=== PATIENT | male | born 1945 | race Caucasian/White ===

== ENCOUNTER 2018-06-06 00:27 | Outpatient (CLI) | payer MEDICARE, BC, SELFPAY ==
--- NOTE | 2018-06-06 08:16 | DI.US_ITS ---
SYMPTOM/DIAGNOSIS: ALCOHOLIC CIRRHOSIS K70.30, SCREENING FOR HEMATOMA ABDOMEN ULTRASOUND: Comparison is made with CT dated 12/09/17 and an MRI dated 12/23/17. The liver is enlarged and shows geographic fatty infiltration. There is some scalloping of the liver border. No focal mass is identified. The proximal common bile duct measures 13 mm. and tapers distally, not significantly changed from the previous CT. No gallstones or wall thickening is seen. The kidneys, spleen and aorta are unremarkable. The pancreas was shadowed by bowel gas. IMPRESSION: Geographic fatty infiltration of the liver. No evidence of a hepatic mass.
== END 2018-06-06 00:47 ==
PROVIDERS: PCP Nurse Practitioner Family; Visit Provider Internal Medicine Gastroenterology
DX: K70.30 Alcoholic cirrhosis of liver without ascites (principal); K70.0 Alcoholic fatty liver
CPT/HCPCS: 76700

== ENCOUNTER → 2018-06-15 08:30 | Outpatient (BNVA) | payer MEDICARE, BC, SELFPAY | PROVIDERS: PCP Nurse Practitioner Family; Referring Provider Nurse Practitioner Family; Visit Provider Surgery | DX: K70.30 Alcoholic cirrhosis of liver without ascites (principal) | CPT/HCPCS: 99213 ==

== ENCOUNTER 2018-06-22 06:59 | Day surgery (SDC) | payer MEDICARE, BC, SELFPAY ==
[2018-06-22 07:19] VITALS: BP 146/76; PULSE 91; RESP 18; TEMP 35.3; O2SAT 98
[2018-06-22] MEDS: Lactated Ringers 1,000 ML 30 ML IV (07:51)
--- NOTE | 2018-06-22 08:33 | W.PM.DSUDISC ---
Discharge Plan Disposition Patient Disposition: HOME Condition: Good Discharge Details Reason For Visit: CIRRHOSIS Attending Provider: Yeison Cheney Primary Care Provider: Stephie Jones Home Meds and New Rx's Prescriptions: Continue atorvastatin 40 MG tablet 40 mg PO DAILY Qty: 90 RF: 3 lisinopril 20 MG tablet 20 mg PO DAILY Qty: 90 RF: 3 furosemide [Lasix] 20 MG tablet 20 mg PO DAILY Qty: 30 RF: 3 psyllium husk [Metamucil] 660 GM powder 1 - 2 tbs PO DAILY RF: 0 hepatitis A and B vaccine (PF) [Twinrix (PF)] 1 ML syringe 1 ml IM ONCE Qty: 1 RF: 0 Varicella-Zoster Ge/As01b/Pf [Shingrix Vial Kit] 50 MCG INJ 50 mcg IM ONCE Qty: 1 RF: 1 Discharge Instructions Instructions: Upper Endoscopy (DC), Esophageal Varices (DC), Esophageal Varices (GEN) Stand Alone Forms: DSU Post EGD Instructions, Nigel Chaney (DSU) Activity:: Activity as Tolerated Diet:: As Tolerated Discharge Orders Discharge Orders: Discharge Order (Routine); Ordered 06/22/18 Ordered By: Yeison Cheney Discharge Data Discharge Date/Time-TO BE ENTERED AT DEPARTURE: 06/22/18 09:24 Discharge Comment: DC'D HOME WITH FRIEND. STABLE. DS: Diagnosis Discharge Diagnosis (1) Hepatic cirrhosis: Status: Acute Asessment and Plan: EGD performed
--- NOTE | 2018-06-22 08:35 | ROE_ITS ---
Date of service: 06/22/18 Time of Service: 08:34 Operative Note DATE OF PROCEDURE: 06/22/18 PRE-OP DIAGNOSIS: Alcoholic cirrhosis the liver POST-OP DIAGNOSIS: other (Alcoholic cirrhosis of the liver with portal hypertension) PROCEDURE: Esophagogastroduodenoscopy SURGEON: Yeison Cheney ANESTHESIA: GETA and MAC (Tl Cerna CRNA; ASA 3 Mallampati class II) ESTIMATED BLOOD LOSS: 0 PATHOLOGY: none sent COMPLICATIONS: None Patient was transported to: same day Patient's condition: stable Indications: 72-year-old gentleman recently diagnosed with cirrhosis of the liver due to alcohol use. EGD was recommended to assess for upper GI pathology associated associated with cirrhosis of the liver such as esophageal varices or gastric varices. Findings: In examining the upper gastrointestinal tract from the oropharynx to the third portion of the duodenum, the patient was noted to have inflammation in the first and second portions of the duodenum with some small ulcerations present. No gross pathology was noted in the stomach other than dark coagulated strands of clotted blood that can of coated the surface of the stomach. I do not see any mann ulcerations in the stomach nor did I see any significant gastric varices. In the esophagus he was noted to have grade 1 esophageal varices that did appear to have some stigmata of recent bleeding, though there is no active bleeding currently. Procedure Description: The patient was brought to the procedure room. Monitoring for telemetry, end- tidal CO2, O2 saturation, blood pressure were applied. An appropriate timeout was taken reviewing the patient's identification, allergies, medications,and procedure. A bite was placed, and sedation was titrated for effect by the FIELD SERVICES ANALYST. An Olympus variable stiffness endoscope was advanced from the oropharynx to the third portion of the duodenum without difficulty. The scope was then withdrawn in circumferential manner from the duodenum back to the oropharynx. In performing withdrawal of the scope, the duodenum appeared to have gross inflammation in the first and second portions with some small ulcerations present in the first portion of the duodenum, no active bleeding was identified. The scope was withdrawn into the gastric antrum and retroflexed to examine the entire stomach. Stomach was noted to have a fine coating of coagulated dark blood no active bleeding source was identified there were no evidence of gastric varices that that I could note, nor any ulcerations visualized in the stomach as a whole. The scope was then withdrawn to the GE junction which I measured at 35 cm The Z line was at 35 cm and appeared regular. Mr. Cr had grade 1 esophageal varices which appear to have some recent stigmata of bleeding and could have been the source for the blood seen in the stomach. I saw no active bleeding present. I withdrew the scope through the remainder of the esophagus all which appear grossly normal. Scope was then withdrawn terminating the upper endoscopy.
[2018-06-22 09:05] VITALS: BP 152/84; PULSE 81; RESP 18; TEMP 36.6; O2SAT 95
== END 2018-06-22 09:24 | disposition home or self-care (01) ==
PROVIDERS: PCP Nurse Practitioner Family; Visit Provider Surgery
PROC: 0DJ68ZZ Inspection of Stomach, Via Natural or Artificial Opening Endoscopic (ICD-10-PCS; CPT 43235; principal; 2018-06-22 08:30)
DX: K70.30 Alcoholic cirrhosis of liver without ascites (principal); I85.11 Secondary esophageal varices with bleeding; K26.9 Duodenal ulcer, unspecified as acute or chronic, without hemorrhage or perforation; F10.10 Alcohol abuse, uncomplicated; F17.210 Nicotine dependence, cigarettes, uncomplicated; K21.9 Gastro-esophageal reflux disease without esophagitis; I10 Essential (primary) hypertension
CPT/HCPCS: 43235

== ENCOUNTER 2018-07-14 09:40 | Outpatient (REF) | payer MEDICARE, BC, SELFPAY ==
[2018-07-19 12:00] LABS: Helicobacter pylori Ag, Feces Negative (NEGAT)
== END 2018-07-14 10:00 ==
LOC: LBN 09:40
PROVIDERS: PCP Nurse Practitioner Family; Visit Provider Nurse Practitioner Adult Health
DX: R10.9 Unspecified abdominal pain (principal)
CPT/HCPCS: 87338

== ENCOUNTER 2018-08-04 07:40 | Outpatient (CLI) | payer MEDICARE, BC, SELFPAY ==
--- NOTE | 2018-08-04 09:20 | DI.RAD_ITS ---
SYMPTOMS/DIAGNOSIS: SUSPECT SPRAIN, ? FX, PAIN LOCATED DORSAL SURFACE OF FOOT, LT FOOT PAIN, LEFT ANKLE PAIN AND SWELLING, M25.572, LEFT ANKLE EFFUSION, M25.472 LEFT FOOT: No trauma history is provided. There are mild degenerative changes involving the foot. A small corticated region of calcification and cortical irregularity is noted involving the superior anterior portion of the talus and is consistent with old trauma. There is a tiny calcaneal spur. SUMMARY: No acute abnormality is demonstrated involving the left foot. LEFT ANKLE: There is generalized soft tissue swelling and no evidence of an acute fracture or dislocation.
== END 2018-08-04 08:00 ==
PROVIDERS: PCP Nurse Practitioner Family; Visit Provider Nurse Practitioner Family
DX: M25.572 Pain in left ankle and joints of left foot (principal); M79.672 Pain in left foot; M77.32 Calcaneal spur, left foot; M79.89 Other specified soft tissue disorders; M19.072 Primary osteoarthritis, left ankle and foot
CPT/HCPCS: 73610; 73630

== ENCOUNTER 2018-11-30 07:22 | Outpatient (CLI) | payer MEDICARE, BC, SELFPAY ==
--- NOTE | 2018-11-30 07:25 | DI.US_ITS ---
SYMPTOM/DIAGNOSIS: ALCOHOLIC CIRRHOSIS, SCREEN FOR HEPATOMA AND ASCITES ABDOMEN ULTRASOUND: The aorta is obscured by bowel gas. The vena cava is intact. The liver is enlarged at 18 cm. and increased echogenicity would be consistent with fatty infiltration. There is scalloping of the borders of the liver. Normal portal flow is demonstrated. There is no wall thickening, stones or pericholecystic fluid noted. The common bile duct is dilated at 12.8 mm. The pancreas is obscured by bowel gas. The spleen measures 7.7 cm. in length. The right kidney measures 10.5 and the left, 10.2 cm. There is no evidence of hydronephrosis, a cyst or mass. SUMMARY: Findings consistent with fatty infiltration and an enlarged liver with scallop borders consistent with cirrhosis. There is no evidence of cholelithiasis. The common duct is dilated at 12.8 mm. No common duct stone is apparent.
[2018-11-30 08:53] LABS: Abs Immature Grans 0.03 k/cumm (0.0-0.09); Absolute Basophil Count 0.03 k/cumm (0.0-0.2); Absolute Eosinophil Count 0.13 k/cumm (0.0-0.7); Absolute Lymphocyte Count 1.42 k/cumm (1.2-3.4); Absolute Monocyte Count 0.62 k/cumm (0.11-0.7); Absolute Neutrophil Count 4.11 k/cumm (1.2-6.7); Basophils % 0.5; Eosinophils % 2.1; HCT 40.3 % (40.0-50.0); HGB 13.6 g/dL (13.5-17.5); Immature Grans % 0.5; Lymphocytes % 22.4; Mean Corp. HGB Concentration 33.7 g/dL (32.0-36.0); Mean Corpuscular Hemoglobin 32.7 pg (27.0-33.0); Mean Corpuscular Volume 96.9 fL (80-95); Monocytes % 9.8; Neutrophils % 64.7; Platelet Count 220 x1000/uL (130-400); RBC 4.16 m/cumm (4.50-6.00); RBC Distribution Width 14.6 % (11.8-14.1); White Blood Cell Count 6.34 k/cumm (4.4-10.8)
[2018-11-30 09:01] LABS: INR 1.1 (0.9-1.1); Prothrombin Time 11.5 sec (9.3-11.0)
[2018-11-30 09:39] LABS: ALT 100 U/L (12-78); AST 111 U/L (15-37); Albumin 3.5 g/dL (3.4-5.0); Alkaline Phosphatase 127 U/L (46-116); Anion Gap 6.9 mmol/L (3-11); BUN 9 mg/dL (7-18); Bilirubin, Total 0.7 mg/dL (0.2-1.0); CO2 31.1 mmol/L (21.0-32.0); CREATININE 0.76 mg/dL (0.70-1.30); Calcium 8.5 mg/dL (8.5-10.1); Chloride 97 mmol/L (98-107); Glucose 98 mg/dL (70-100); Potassium 3.9 mmol/L (3.5-5.1); Sodium 135 mmol/L (136-145); Total Protein 7.2 g/dL (6.4-8.2)
[2018-11-30 10:12] LABS: Cholesterol 126 mg/dL (50-200); HDL Cholesterol 62 mg/dL (40-60); LDL CHOLESTEROL 44 mg/dL (<100); Triglyceride 190 mg/dL (30-150)
== END 2018-11-30 07:42 ==
PROVIDERS: PCP Nurse Practitioner Family; Referring Provider Physician Assistant Medical; Visit Provider Internal Medicine Gastroenterology
DX: E78.5 Hyperlipidemia, unspecified (principal); K70.30 Alcoholic cirrhosis of liver without ascites; K76.0 Fatty (change of) liver, not elsewhere classified; R16.0 Hepatomegaly, not elsewhere classified
CPT/HCPCS: 36415; 80053; 80061; 83721; 76700; 85025; 85610

== ENCOUNTER 2019-05-29 15:12 | Emergency (ER) | payer MEDICARE, BC, SELFPAY ==
[2019-05-29 15:20] VITALS: BP 161/74; PULSE 76; RESP 16; TEMP 37; O2SAT 100
--- NOTE | 2019-05-29 15:31 | ED.GENADUL_ITS ---
Discharge Plan Disposition Patient Disposition: OTHER Condition: Stable Discharge Details Chief Complaint: GenMedical Clinical Impression: Left before treatment completed, Dysphagia Primary Care Provider: Stephie Jones ED Provider: Corine Dill Home Meds and New Rx's Prescriptions: No Action lisinopril 20 mg tablet 20 mg PO DAILY Qty: 90 RF: 3 carvedilol 6.25 mg tablet 6.25 mg PO BID Qty: 180 RF: 3 Metamucil 660 GM powder 1 - 2 tbs PO DAILY RF: 0 atorvastatin 40 mg tablet 40 mg PO DAILY Qty: 90 RF: 3 furosemide [Lasix] 20 mg tablet 20 mg PO QAM Qty: 90 RF: 3 Medical Decision Making 1530 -- 73-year-old male with a history of GERD, Smalls's esophagus, prostate cancer, hypertension, hyperlipidemia, heavy alcohol abuse, cirrhosis, heavy tobacco use presents with difficulty swallowing large pills for the past 2 weeks. He denies any fever, pain, vomiting. He is speaking in full sentences. Airway intact. Normal oropharynx. No drooling, trismus, submandibular swelling. Diminished breath sounds throughout but he has a history of COPD and denies any acute worsening of his chronic shortness of breath. Patient had a EGD from 06/2018 which noted grade 1 esophageal varices without active bleeding. Discussed with patient that differential diagnosis can include esophageal mass, narrowing, infection, inflammation, GERD, complications associated with his Smalls's esophagus. Further work-up for this in the emergency department would include IV, screening labs, CT neck as well as chest x-ray considering his heavy alcohol and tobacco use. He has no evidence of superior vena cava syndro me. Patient is agreeable with plan. 1625 --nurse stated that patient left before an IV was placed. There was a misunderstanding between nurses and it was thought that his IV was done. Patient states he felt better and did not want to stay for any treatment. HPI General Mode of arrival: ambulatory . Date/Time Provider Initiated Documentation: 05/29/19 15:14 . Limitations to Documentation: no limitations . Information obtained by: patient . HPI Narrative: Patient is a 73-year-old male with a history of COPD, GERD, hypertension, hyperlipidemia, restless leg syndrome, Smalls's esophagus, chronic daily alcohol use, cirrhosis, and heavy tobacco smoker who presents for difficulty swallowing large pills for the past 2 weeks. He states he is able to swallow all rest of his small smooth pills easily. He states the pill he is having difficulty with is his Lipitor which she cut in half and then down to quarters and still had difficulty due to the rough edges. He does feel that there is possibly a remnant of pill embedded in his throat. He denies any fever, sore throat, neck pain, chest pain, shortness of breath worse than usual, abdominal pain, vomiting, hemoptysis, hematemesis. Related Data Home Medications Medication Instructions Recorded Confirmed Metamucil 1 - 2 tbs PO DAILY 02/25/18 05/29/19 carvedilol 6.25 mg tablet 6.25 mg PO BID #180 tab-cap 07/18/18 05/29/19 atorvastatin 40 mg tablet 40 mg PO DAILY #90 tab-cap 12/07/18 05/29/19 lisinopril 20 mg tablet 20 mg PO DAILY #90 tab-cap 12/12/18 05/29/19 furosemide 20 mg tablet 20 mg PO QAM #90 tab-cap 04/26/19 05/29/19 Previous Rx's Medication Instructions Recorded carvedilol 6.25 mg tablet 6.25 mg PO BID #180 tab-cap 07/18/18 atorvastatin 40 mg tablet 40 mg PO DAILY #90 tab-cap 12/07/18 lisinopril 20 mg tablet 20 mg PO DAILY #90 tab-cap 12/12/18 furosemide 20 mg tablet 20 mg PO QAM #90 tab-cap 04/26/19 Allergies Allergy/AdvReac Type Severity Reaction Status Date / Time erythromycin base AdvReac Mild Verified 05/29/19 15:24 [From E-Mycin] General Stated Complaint: GenMedical JAMEE: 3 Review of Systems Review of Systems ROS Unobtainable: All systems reviewed & are unremarkable except as noted in HPI and below Constitutional Constitutional: Reports as per HPI, Denies chills and Denies fever(s) Eyes Eyes: Denies blurry vision ENT Ears, Nose, Mouth, and Throat: Reports dysphagia (difficulty swallowing large pills), Denies dizziness, Denies sore throat and Denies throat swelling Cardiovascular Cardiovascular: Denies chest pain and Denies dyspnea Respiratory Respiratory: Denies cough and Denies dyspnea Gastrointestinal Gastrointestinal: Denies abdominal pain, Reports dysphagia (difficulty swallowing large pills), Denies diarrhea and Denies vomiting Genitourinary Genitourinary: Denies hematuria and Denies dysuria Musculoskeletal Musculoskeletal: Denies back pain and Denies numbness Integumentary/Breasts Skin/Breast: Denies lesions and Denies rash Neurologic Neurologic: Denies dizziness, Denies focal weakness and Denies numbness Allergic/Immunologic Allergic/Immunologic: Denies throat swelling [facility] Medical History 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 Geoffrey Dumont Alcohol use disorder (Chronic) Smalls's esophagus (Chronic) 10/17/2018 EGD ([facility] [place] esophageal mucosal changes classified as Smalls's stage C0-M1 per [place] criteria (also showed resolution of esophageal varices on carvedilol 6.25 mg BID) Bilateral lower extremity edema (Chronic 01/14/18) Related to cirrhosis BPH w urinary obs/LUTS (Chronic 03/10/13) BPH with obstruction/lower urinary tract symptoms (Chronic) Al hemangioma (Resolved 02/18/17) Dr. Geoffrey Dumont Chronic obstructive lung disease (Chronic 03/15/13) 01/2007 PFT jul diffusion, FEV1 90%: emphysema Esophageal varices (Resolved) 06/22/2017 EGD (Dr. Cheney): grade 1 w/ stigmata of bleeding; 10/17/2018 EGD ([facility] [place]): no evidence of esophageal or gastric varices on carvedilol 6.25 mg BID Gastroesophageal reflux disease (Chronic 03/15/13) HH surgery 08/1990 GERD (gastroesophageal reflux disease) (Chronic) Heavy alcohol use (Chronic) Hepatic cirrhosis (Chronic 01/14/18) [facility] [place] GI 02/24/2018 Fibroscan: stage 4 liver fibrosis, consistent with cirrhosis with possible portal HTN 06/22/2018 EGD (Dr. Cheney): confirmed portal HTN with grade 1 esophageal varices History of basal cell carcinoma (Chronic) Hyperlipidemia (Chronic 03/24/13) 11/2018 labs: good response to high potency statin, continue Hyperlipidemia (Chronic) Hypertension (Chronic 08/01/14) Incisional hernia (Acute) Incisional hernia, without obstruction or gangrene (Chronic 01/17/18) [facility] [place] [facility] consult Incontinence of feces (Chronic) Malignant neoplasm of prostate (Acute) Rectosphincteric dyssynergia (Chronic) Manifested as fecal incontinence and constipation; resolved with daily fiber supplementation Restless leg syndrome (Chronic) Seborrheic keratosis (Inactive 02/18/17) Dr. Hale Derm Sigmoid diverticulosis (Chronic 02/01/18) 02/01/2018 colonoscopy Tobacco use disorder (Chronic) 1.5 PPD Surgical History Colonoscopy - MAC (Resolved 02/01/18) History of esophagogastroduodenoscopy (EGD) (Resolved 06/22/18) dr cheney, grade I esophageal varices Left shoulder (Resolved 09/24/07) Marci Fundoplication (Resolved 03/24/85) Prostatectomy (Resolved ~05/2007) Repair of incision from Marci fundoplication (Resolved 03/24/87) right shoulder (Resolved 03/24/00) Family History Mother , resp failure No problems noted. Father , prostate CA Personal history of malignant neoplasm prostate Malignant melanoma Social History Smoking/Tobacco Use Status: Current every day Tobacco Type: cigarettes Alcohol Intake: current Alcohol Intake frequency: 3 or more drinks per day Alcohol type: beer and hard liquor Drug use: Never Substance use type: does not use Caregiver/Support person: No Number of Children: 2 Communication Needs: None current occupation: Retired Current gender identity: male What type of physical activity do you participate in: none Seatbelt use: always Water heater temp set <120 deg: Yes Working smoke detector in home: Yes Fire extinguisher in home: Yes Carbon monox detector in home: Yes Firearms in home: No Exam Const General: cooperative and no acute distress Orientation: alert, awake and oriented x3 HENMT Head: normal to inspection Ears: hearing grossly normal bilaterally, external ears normal and TM's normal bilaterally General nose exam: external nose normal Face and sinus: normal facial exam Mouth: oral mucosae normal Teeth and gingiva: dentition normal Throat: posterior oropharynx normal Eyes General: appearance normal, both eyes and all related structures Eyelids: eyelids normal Pupils: PERRL EOM: EOM intact bilaterally Neck Neck: normal visual inspection Lymphatic: no lymphadenopathy noted Chest Chest: normal inspection of the chest Resp Effort & Inspection: normal respiratory effort and able to speak in complete sentences Auscultation: clear to auscultation bilaterally Cardio Rate: regular rate Rhythm: regular rhythm GI Inspection: normal to inspection and scar (Midline, no evidence of infection.) Palpation: soft, not firm, no guarding, no hepatosplenomegaly, no masses and nontender Auscultation: normal bowel sounds Skin General skin exam: no rashes or lesions noted Neuro General: alert and awake Cognition: normal cognition Speech: speech normal Gait: normal gait Motor: muscle tone normal throughout Sensory Exam: no sensory deficits noted Extrem General: normal to inspection, full ROM, normal capillary refill and no edema Psych Appearance: grossly normal Mental Status: mental status grossly normal Speech and Movement: speech and movement normal Affect: normal affect Thought Process: normal Course Vital Signs Vital signs: Vital Signs Temperature 98.6 F 05/29/19 15:20 Pulse 76 05/29/19 15:20 Respiratory Rate 16 05/29/19 15:20 Blood Pressure 161/74 H 05/29/19 15:20 Pulse Oximetry 100 05/29/19 15:20 Temperature 98.6 F 05/29/19 15:20 Temperature Source Skin 05/29/19 15:20 Pulse 76 05/29/19 15:20 Respiratory Rate 16 05/29/19 15:20 Respiratory Effort Non-Labored 05/29/19 15:20 Blood Pressure 161/74 H 05/29/19 15:20 Blood Pressure Position Sitting 05/29/19 15:20 Pulse Oximetry 100 05/29/19 15:20 Oxygen Delivery Method Room Air 05/29/19 15:20 Oxygen Flow Rate 0 05/29/19 15:20 Pain Level 0 05/29/19 15:20
--- NOTE | 2019-05-29 16:50 | NUR.NOTE ---
pt left 37 min after his orders where written. he stated that he was feeling better and did not want to wait.Nursing Note:
[2019-05-30 07:01] VITALS: RESP 16
== END 2019-05-29 16:30 | disposition other institution (70) ==
PROVIDERS: Emergency Provider Physician Assistant; PCP Nurse Practitioner Family
DX: R13.10 Dysphagia, unspecified (principal); K22.70 Barrett's esophagus without dysplasia; Z53.29 Procedure and treatment not carried out because of patient's decision for other reasons; I10 Essential (primary) hypertension
CPT/HCPCS: 80053; 99282; 85025

== ENCOUNTER 2019-05-31 01:36 | Outpatient (CLI) | payer MEDICARE, BC, SELFPAY ==
--- NOTE | 2019-05-31 08:00 | DI.US_ITS ---
EXAM: US ABDOMEN CLINICAL HISTORY: ALCOHOLIC CIRRHOSIS, K70.30, ? HEPATOMA OR ASCITES TECHNIQUE: Ultrasound performed using standard protocol. COMPARISON: US ABDOMEN from 11/30/2018 FINDINGS: The liver is again noted to have a coarsened echotexture, increased echogenicity and mild lobulation . No focal liver lesions are seen. The gallbladder is unremarkable. The common bile duct is unchan ged at 12 millimeters. No obstructing stone is seen. The spleen is normal in size. The kidneys are unremarkable. There is a minimal amount fluid around the liver. The aorta is not well seen due to overlying bowel gas. IMPRESSION: Stable appearance of liver. No evidence of liver mass. Trace amount of ascites.
== END 2019-05-31 01:56 ==
PROVIDERS: PCP Nurse Practitioner Family; Visit Provider Internal Medicine Gastroenterology
DX: K70.31 Alcoholic cirrhosis of liver with ascites (principal)
CPT/HCPCS: 76700

== ENCOUNTER 2019-05-31 09:12 | Outpatient (CLI) | payer MEDICARE, BC, SELFPAY ==
[2019-05-31 09:56] LABS: Abs Immature Grans 0.02 k/cumm (0.0-0.09); Absolute Basophil Count 0.05 k/cumm (0.0-0.2); Absolute Eosinophil Count 0.21 k/cumm (0.0-0.7); Absolute Lymphocyte Count 1.64 k/cumm (1.2-3.4); Absolute Monocyte Count 0.58 k/cumm (0.11-0.7); Absolute Neutrophil Count 4.51 k/cumm (1.2-6.7); Basophils % 0.7; HCT 41.5 % (40.0-50.0); HGB 13.9 g/dL (13.5-17.5); Immature Grans % 0.3; Lymphocytes % 23.4; Mean Corp. HGB Concentration 33.5 g/dL (32.0-36.0); Mean Corpuscular Hemoglobin 33.4 pg (27.0-33.0); Mean Corpuscular Volume 99.8 fL (80-95); Mean Platelet Volume 8.7 fL (8.0-11.0); Monocytes % 8.3; Neutrophils % 64.3; Platelet Count 263 x1000/uL (130-400); RBC 4.16 m/cumm (4.50-6.00); RBC Distribution Width 14.4 % (11.8-14.1); White Blood Cell Count 7.01 k/cumm (4.4-10.8)
[2019-05-31 09:59] LABS: INR 1.2 (0.9-1.1); Prothrombin Time 11.7 sec (9.3-11.0)
[2019-05-31 10:49] LABS: ALT 44 U/L (16-63); AST 51 U/L (15-37); Albumin 3.6 g/dL (3.4-5.0); Alkaline Phosphatase 117 U/L (46-116); Anion Gap 7.1 mmol/L (3-11); BUN 10 mg/dL (7-18); Bilirubin, Total 0.6 mg/dL (0.2-1.0); CO2 30.9 mmol/L (21.0-32.0); CREATININE 0.72 mg/dL (0.70-1.30); Calcium 8.9 mg/dL (8.5-10.1); Chloride 100 mmol/L (98-107); Glucose 97 mg/dL (70-100); Potassium 4.3 mmol/L (3.5-5.1); Sodium 138 mmol/L (136-145)
[2019-06-01 12:45] LABS: PSA, Screening <0.1 ng/ml (0-6.5)
[2019-06-02 10:40] LABS: AFP Tumor Marker <2.5 ng/mL (<8.1)
== END 2019-05-31 09:32 ==
PROVIDERS: PCP Nurse Practitioner Family; Visit Provider Physician Assistant Medical
DX: K70.30 Alcoholic cirrhosis of liver without ascites (principal); Z85.46 Personal history of malignant neoplasm of prostate
CPT/HCPCS: 36415; 80053; 84153; 76700; 82105; 85025; 85610

== ENCOUNTER 2019-06-06 12:33 | Outpatient (CLI) | payer MEDICARE, BC, SELFPAY ==
--- NOTE | 2019-06-06 08:53 | DI.RAD_ITS ---
EXAM: RF BARIUM SWALLOW UGI CLINICAL HISTORY: DYSPHAGIA WITH PILLS ONLY, RECENT EGD 10/2018 [facility] [place] TECHNIQUE: The exam was performed according to the usual protocol. COMPARISON: No exams were available for comparison FINDINGS: The advance scout view of the chest shows normal heart size. The lungs are hyperinflated but clear. There is mild apical scarring. Lateral advance scout view of the neck shows facet degenerative changes. The epig lottis appears normal. There is no prevertebral soft tissue swelling. Esophageal peristalsis was mi ldly sluggish. One episode of laryngeal penetration was observed. There is pooling in the vallecular and piriform sinuses. There is a small paraesophageal hernia. The barium tablet stuck briefly at t he GE junction. The stomach and duodenum and visualized small bowel are unremarkable. There is norm al gastric emptying. IMPRESSION: Small paraesophageal hernia. FLUORO TIME: 1 MINUTE, 15 SECONDS
[2019-06-06] MEDS: Simethicone/Sod Bicarb/Cit Ac, 4 gram PACKET 1 PACKET PO (10:02)
[2019-06-06] MEDS: Barium Sulfate 700 MG TAB PO (10:02)
[2019-06-06] MEDS: Barium Sulfate 60% W/V 355 ML BTL PO (10:04)
== END 2019-06-06 12:53 ==
PROVIDERS: PCP Nurse Practitioner Family; Visit Provider Nurse Practitioner Family
DX: R13.10 Dysphagia, unspecified (principal); K44.9 Diaphragmatic hernia without obstruction or gangrene
CPT/HCPCS: 74220; 74247; J3490

== ENCOUNTER 2019-06-22 15:28 | Outpatient (CLI) | payer MEDICARE, BC, SELFPAY ==
--- NOTE | 2019-06-22 11:32 | PFT_ITS ---
PULMONARY FUNCTION TEST REPORT DATE OF SERVICE: June 22, 2019 REQUESTING PROVIDER: Stephie Jones N.P. Spirometry shows severe obstructive airways disease with no significant bronchodilator response. Lung volumes show no evidence of restriction. There is moderate hyperinflation and air trapping. Diffusion capacity moderately reduced, even when corrected to alveolar volume. Airways resistance mildly elevated. IMPRESSION: Severe obstructive airways disease with no significant bronchodilator response. This is associated with moderate hyperinflation and air trapping and moderate diffusion defect. When this study was compared to previous one from 09/08/06, the patient has a total of 1160 cc's decline in FVC. FEV1 has declined by 1600 cc's. BRENDAN/jose D/
[2019-06-22] MEDS: Inhaler, Assist Device 1 EACH MC (16:48)
[2019-06-22] MEDS: Albuterol HFA 18 GM 200 PUFF INH IH (16:49)
== END 2019-06-22 15:48 ==
PROVIDERS: PCP Nurse Practitioner Family; Visit Provider Nurse Practitioner Family
DX: J44.9 Chronic obstructive pulmonary disease, unspecified (principal); R06.00 Dyspnea, unspecified; F17.210 Nicotine dependence, cigarettes, uncomplicated
CPT/HCPCS: 94060; 94150; 94726; 94729

== ENCOUNTER 2020-06-15 01:32 | Inpatient (IN) | payer MEDICARE, BC, SELFPAY ==
[2020-06-15] VITALS (28 sets, daily range): BP systolic 90–149; BP diastolic 50–81; PULSE 65–87; RESP 12–18; TEMP 35.9–37.3; O2SAT 92–98
--- NOTE | 2020-06-15 01:34 | ED.GENADUL_ITS ---
Discharge Plan Disposition Patient Disposition: [facility] INPATIENT Condition: Stable Discharge Details Clinical Impression: Closed fracture of left hip Admit Date/Time: 06/15/20 03:32 Admit Provider: Hamzah Bahena Attending Provider: Hamzah Bahena Primary Care Provider: Stephie Jones ED Provider: Kenny Pitt Discharge Data Discharge Date/Time-TO BE ENTERED AT DEPARTURE: 06/15/20 04:33 Medical Decision Making 74-year-old male with a history of GERD, Smalls's esophagus, prostate cancer, hypertension, hyperlipidemia, heavy alcohol abuse, cirrhosis, heavy tobacco abuse, alcoholic cirrhosis, presents today for evaluation of fall and left hip pain. Patient was at his home where he has been drinking regularly and heavily especially since the coronavirus pandemic began per patient. He states that sometime this evening he must of fallen and hit his left hip. He has not been able to get up, he called 911 when he realized/woke up on the ground. Aside for pain in his left hip scrapes on both of his elbows he denies any pain. He denies any pain in his head, neck, chest, abdomen, or numbness or tingling. He was unable to get up on his own per EMS. He is not on any blood thinners. He has no other complaints at this time. Exam demonstrates a sure and externally rotated left hip, tenderness over the greater trochanter, superficial abrasions over the elbows bilaterally leading to mild skin tears. Not amendable to suturing. Last tetanus shot was just over 7 years old. It may be beneficial to update him at this time. We will get an x-ray to confirm suspected fracture. Get a CT scan of his head as he is a chronic alcoholic and he is unsure if he hit his head. Monitor closely and plan for admission. 3:[address] scan of the head neck and x-ray of the chest is negative for acute process. X-ray of the hips demonstrate acute intertrochanteric fracture of the proximal femur. Patient's laboratory work-up unremarkable aside from mild hyponatremia, he has been given 150ml's normal saline per hour. Remainder the patient's work- up is benign. Discussed the case with the hospitalist Dr. Bahena, he agrees with the assessment and plan, he will admit the patient, we will recheck to orthopedics. I have extensively reviewed the treatment plan with the patient. I have addressed all patient concerns at this time. I have also discussed the plan with the admitting physician and they agree with the current assessment and plan and have agreed to assume responsibility for the patient. All parties demonstrate verbal understanding and agreement with our assessment and plan at this time. 5:30 AM Discussed the case with Dr. Mcclendon, he agrees with the plan. Patient will be admitted. Under the hospitalist. FINDINGS: Bones/joints: Acute intratrochanteric fracture of the proximal femur. Soft tissues: Unremarkable. IMPRESSION: Acute intratrochanteric fracture of the proximal femur. Thank you for allowing us to participate in the care of your patient. Dictated and Authenticated by: Ajith Reyes MD 06/15/2020 2:46 AM Eastern Time ([place] & [place]) FINDINGS: Brain: No acute intracranial hemorrhage. Diffuse cerebral atrophy. Cerebral ventricles: Ventricular prominence in this patient with diffuse cerebral atrophy. Bones/joints: No acute fracture. Paranasal sinuses: Medial right frontal sinus retention cyst. Mastoid air cells: No mastoiditis. Vasculature: Arterial calcification. Soft tissues: Unremarkable. IMPRESSION: 1. No acute fracture. 2. No acute intracranial findings FINDINGS: Bones/joints: No acute fracture. Normal alignment. Discs/Spinal canal/Neural foramina: Mild narrowing of the left neural foramen at C3-C4. Mild narrowing of each neural foramen at C4-C5 and C5-C6. Soft tissues: Unremarkable. Lungs: Biapical scarring with areas of calcification. IMPRESSION: No acute fracture or subluxation. Thank you for allowing us to participate in the care of your patient. Dictated and Authenticated by: Miles Metcalf MD 06/15/2020 2:56 AM Eastern Time ([place] & [place]) FINDINGS: Lungs: No alveolar infiltrate. Biapical scarring. Pleural space: No pleural fluid collection. No pneumothorax. Heart/Mediastinum: Normal heart size. Vasculature: Calcific thoracic aorta. Bones/joints: Spinal degenerative changes. IMPRESSION: 1. No alveolar infiltrate. 2. Biapical scarring. Thank you for allowing us to participate in the care of your patient. Dictated and Authenticated by: Miles Metcalf MD 06/15/2020 3:04 AM Eastern Time ([place] & [place]) HPI General Date/Time Provider Initiated Documentation: 06/15/20 01:32 . HPI Narrative: 74-year-old male with a history of GERD, Smalls's esophagus, prostate cancer, hypertension, hyperlipidemia, heavy alcohol abuse, cirrhosis, heavy tobacco abuse, alcoholic cirrhosis, presents today for evaluation of fall and left hip pain. Patient was at his home where he has been drinking regularly and heavily especially since the coronavirus pandemic began per patient. He states that sometime this evening he must of fallen and hit his left hip. He has not been able to get up, he called 911 when he realized/woke up on the ground. Aside for pain in his left hip scrapes on both of his elbows he denies any pain. He denies any pain in his head, neck, chest, abdomen, or numbness or tingling. He was unable to get up on his own per EMS. He is not on any blood thinners. He has no other complaints at this time. Related Data Home Medications Medication Instructions Recorded Confirmed Metamucil 1 - 2 tbs PO DAILY 02/25/18 06/15/20 carvedilol 6.25 mg tablet 6.25 mg PO BID #180 tab-cap 08/11/19 06/15/20 atorvastatin 40 mg tablet 40 mg PO DAILY #90 tab-cap 11/23/19 06/15/20 lisinopril 20 mg tablet 20 mg PO DAILY #90 tab-cap 01/05/20 06/15/20 hepatitis A and B virus 1 ml IM ONCE #1 ml 03/28/20 04/11/20 vaccine(PF)720 DYLAN unit-20 mcg/mL IM syringe furosemide 20 mg tablet 20 mg PO QAM #90 tab-cap 05/22/20 06/15/20 Previous Rx's Medication Instructions Recorded carvedilol 6.25 mg tablet 6.25 mg PO BID #180 tab-cap 08/11/19 atorvastatin 40 mg tablet 40 mg PO DAILY #90 tab-cap 11/23/19 lisinopril 20 mg tablet 20 mg PO DAILY #90 tab-cap 01/05/20 hepatitis A and B virus 1 ml IM ONCE #1 ml 03/28/20 vaccine(PF)720 DYLAN unit-20 mcg/mL IM syringe furosemide 20 mg tablet 20 mg PO QAM #90 tab-cap 05/22/20 Allergies Allergy/AdvReac Type Severity Reaction Status Date / Time erythromycin base AdvReac Mild Verified 06/15/20 01:42 [From E-Mycin] General JAMEE: 3 Review of Systems All systems reviewed & are unremarkable except as noted in HPI and below PFSH Medical History 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 Geoffrey Dumont Alcohol use disorder Smalls's esophagus 10/17/2018 EGD [place] esophageal mucosal changes classified as Smalls's stage C0-M1 per [place] criteria (also showed resolution of esophageal varices on carvedilol 6.25 mg BID) Basal cell carcinoma (BCC) Face Bilateral lower extremity edema (01/14/18) Related to cirrhosis BPH w urinary obs/LUTS (03/10/13) Al hemangioma (02/18/17) Dr. Geoffrey Dumont Chronic obstructive lung disease (03/15/13) 01/2007 PFTs: FEV1 90%; 06/2019 PFTs: FEV1/FVC 56% --> severe obstructive airways disease with no bronchodilator response Dysphagia 10/17/2018 EGD ([facility]): Smalls's & interval resolution of esophageal varices seen on previous EGD (see Smalls's dx comments for details); 06/06/2019 Barium Swallow: some dysmotility & aspiration --> referred to Speech Therapy 04/12/20 [facility] Esophageal Manometry; 05/17/2020 EGD: Grade I esophageal varices, duodenal erosions w/o bleeding, no obstructive cause for dysphagia Esophageal varices 06/22/2017 EGD (Dr. Cheney): grade 1 w/ stigmata of bleeding; 10/17/2018 EGD ([facility]): no evidence of esophageal or gastric varices on carvedilol 6.25 mg BID Family history of malignant melanoma ov note dated 05/10/20-Dr. Hale Gastroesophageal reflux disease (03/15/13) surgery 08/1990 GERD (gastroesophageal reflux disease) Hepatic cirrhosis (01/14/18) [facility] 02/24/2018 Fibroscan: stage 4 liver fibrosis, consistent with cirrhosis with possible portal HTN 06/22/2018 EGD (Dr. 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 Hale Derm Sigmoid diverticulosis (02/01/18) 02/01/2018 colonoscopy Squamous cell carcinoma Face Tobacco use disorder 1.5 PPD Surgical History Colonoscopy - MAC (02/01/18) H/O colonoscopy 05/17/20 at [facility] - no need for further to have any further colonscopy per report H/O endoscopy 05/17/20 [facility] History of esophagogastroduodenoscopy (EGD) (06/22/18) dr cheney, grade I esophageal varices Left shoulder (09/24/07) Marci Fundoplication (03/24/85) Prostatectomy (~05/2007) Repair of incision from Marci fundoplication (03/24/87) right shoulder (03/24/00) Family History Mother , resp failure No problems noted. Father , prostate CA Personal history of malignant neoplasm prostate Malignant melanoma Social History Smoking/Tobacco Use Status: Current every day Tobacco Type: cigarettes Smoking risk assessment performed?: Yes Alcohol Intake: current Alcohol Intake frequency: 3 or more drinks per day Alcohol type: beer and hard liquor Drug use: Never Substance use type: does not use Caregiver/Support person: No Number of Children: 2 Communication Needs: None current occupation: Retired Current gender identity: male What type of physical activity do you participate in: none Seatbelt use: always Water heater temp set <120 deg: Yes Working smoke detector in home: Yes Fire extinguisher in home: Yes Carbon monox detector in home: Yes Firearms in home: No Do you feel safe at home: Yes Do you feel safe in your relationship?: Yes Exam Narrative Exam Narrative: 1.Const: Well-nourished, Well-developed, appearing stated age 2.Eyes: PERRL, no conjunctival injection, and symmetrical lids. 3.ENT: Atraumatic external nose and ears. Moist MM. Neck: Symmetric, trachea midline, No thyromegaly. There is no evidence of raccoon eyes, zelaya sign, CSF rhinorrhea, mastoid tenderness, cranial crepitus, hemotympanum, exophthalmos, or hyphema. Patient demonstrates intact dentition with no signs of tooth avulsion or fracture, no signs of jaw deformity, no evidence of a LeFort's fracture, with an intact palate, nose and orbital region. There is no evidence of a nasal septal hematoma. No proptosis. Jaw closes symmetrically. Airway is clear. 4.CVS: Regular rate and rhythm, Normal s1 and s2. No murmurs, carotid bruits, rubs, or gallops. Radial pulses 2+ bilaterally and symmetric. Dorsalis pedis pulses 2+ bilaterally and symmetric. 2+ capillary refill. No evidence of distant heart sounds. No extremity edema. No evidence of gross hemorrhage. 5.RESP: Airway clear, no obstructions. No abrasions or ecchymosis. Chest movement symmetric with respirations. No chest wall tenderness. Trachea midline. No crepitus. No step offs. No paradoxical movements. Lungs are clear to auscultation bilaterally. No rales, rhonchi, wheezing or stridor. Breath sound symmetric. No Sucking chest wounds. No clinical evidence of significant chest trauma. 6.GI: Soft, nondistended, nontender. Bowel tones normoactive. No masses or organomegaly. No ecchymosis or abrasions. No periumbilical ecchymosis or seatbelt sign. No flank or CVA tenderness. No clinical signs of significant trauma. He does have a soft reducible herniation in his left lateral abdomen. No clinical evidence of significant abdominal trauma. 7.MSK: No midline cervical thoracic pain. He does demonstrate evidence of a shortened and externally rotated left hip, with mild tenderness over the greater trochanter. He is able to wiggle his toes, dorsalis pedis posterior tibial pulse +2 bilaterally, sensation intact, upper extremities demonstrate scrapes on his lateral elbows bilaterally but no elbow tenderness, or weakness. He is able to move and flex and extend well without any complaints. No other evidence of significant trauma 8.Skin: Small superficial skin tears not amendable to suturing on the elbows bilaterally. 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 Sensation grossly intact, no focal n eurologic deficits. 10.Psych: (AAO) x3. Appropriate mood and affect
[2020-06-15] MEDS: Normal Saline 1,000 ML 150 ML IV ×3 (01:48→09:54)
[2020-06-15 01:57] LABS: Abs Immature Grans 0.07 10^3/uL (0.0-0.06); Absolute Basophil Count 0.05 10^3/uL (0.0-0.2); Absolute Lymphocyte Count 1.58 10^3/uL (1.2-3.4); Absolute Neutrophil Count 6.05 10^3/uL (1.2-6.7); Basophils % 0.6; Eosinophils % 2.3; HGB 12.3 g/dL (13.5-17.5); Immature Grans % 0.8; Lymphocytes % 18.1; MCH 32.9 pg (27.0-33.0); MCHC 33.2 % (32.0-36.0); MCV 98.9 fL (80-95); MPV 8.7 fL (8.0-11.0); Monocytes % 9.1; Neutrophils % 69.1; Nucleated RBC 0 %; Platelet Count 215 10^3/uL (130-400); RBC 3.74 10^6/uL (4.36-5.78); RDW-SD 47.1 fL; WBC 8.75 10^3/uL (4.4-10.8)
[2020-06-15 02:11] LABS: ETHANOL BLOOD 44.7 mg/dL (<3)
[2020-06-15 02:15] LABS: ALT 31 U/L (16-63); AST 47 U/L (15-37); Albumin 3.1 g/dL (3.4-5.0); Alkaline Phosphatase 102 U/L (46-116); Anion Gap 7.4 mmol/L (3-11); BUN 7 mg/dL (7-18); Bilirubin, Total 0.4 mg/dL (0.2-1.0); CO2 27.6 mmol/L (21.0-32.0); CREATININE 0.77 mg/dL (0.70-1.30); Calcium 8.2 mg/dL (8.5-10.1); Chloride 94 mmol/L (98-107); Creatine Kinase 99 U/L (39-308); Glucose 121 mg/dL (74-106); Potassium 4.6 mmol/L (3.5-5.1); Sodium 129 mmol/L (136-145); Total Protein 6.7 g/dL (6.4-8.2)
--- NOTE | 2020-06-15 02:16 | NUR.NOTE ---
Nursing Note:Patient's macdonald 358 dollars, wallet, jackie knife, money clip sealed in envelope and given to [facility] Tr[facility] Operator to put in the safe. Receipt to claim envelope sealed in a plasticbag with patient label attached put in patient's pants pocket.
--- NOTE | 2020-06-15 02:26 | DI.RAD_ITS ---
EXAM: XR HIP LT COMPLETE AP PELVIS CLINICAL HISTORY: expect fracture, left hip pain. TECHNIQUE: 2D digital imaging was performed. COMPARISON: No exams were available for comparison FINDINGS: BONES: There is an acute comminuted and angulated intertrochanteric fracture of the left femur. No b wang destructive lesion is seen. JOINTS: No dislocation present. SOFT TISSUE: Associated soft tissue swelling. IMPRESSION: Acute comminuted angulated intertrochanteric fracture of the left femur. DATA REPOSITORY: RADIATION DOSE DELIVERED:
--- NOTE | 2020-06-15 02:32 | DI.CT_ITS ---
EXAM: CT HEAD CERVICAL SPINE WO CLINICAL HISTORY: fall, etoh. TECHNIQUE: Imaging Protocol: Axial computed tomography images with coronal and sagittal reformatted images were created and reviewed COMPARISON: No exams were available for comparison FINDINGS: CT Head: Ventricles and Extra axial spaces: Normal in size and morphology for the patient's age. Hemorrhage: None. Cerebral parenchyma: There are areas of decreased attenuation in the white matter most consistent wit h chronic microvascular ischemic disease. No acute territorial infarct. Midline shift: None. Brainstem/Cerebellum: Normal. Calvarium: Normal. Visualized Paranasal sinuses/Mastoids: Small retention cyst in the right frontal sinus. Sinuses and mastoid otherwise clear. Soft Tissues: Unremarkable. CT Cervical Spine: Bones: No acute fracture or subluxation. Multilevel degenerative changes in the cervical spine. Soft Tissues: Unremarkable. Lung Apices: Biapical scarring. IMPRESSION: 1. No acute intracranial process. 2. No acute fracture or subluxation in the cervical spine. RADIATION DOSE DELIVERED: 1,394.15mGy.cm Total DLP DATA REPOSITORY: All CT scans at this facility are submitted to the National Radiology Data Registry (NRDR) Dose Index Registry (DIR) with the [employer] (ACR). RADIATION OPTIMIZATION: All CT scans at this facility use at least one of these dose optimization te chniques: automated exposure control; mA and/or kV adjustment per patient size (includes targeted exa ms where dose is matched to clinical indication); or iterative reconstruction.
--- NOTE | 2020-06-15 02:46 | DI.VRAD_ITS ---
PROCEDURE INFORMATION: Exam: XR Left Hip with Pelvis when Performed Exam date and time: 06/15/2020 2:27 AM Age: 74 years old Clinical indication: Injury or trauma; Blunt trauma (contusions or hematomas); Left; Hip; Injury date: 06/15/20; Injury details: Fall in home onto hard surface TECHNIQUE: Imaging protocol: XR Left hip with pelvis when performed. Views: 2 or 3 views. COMPARISON: CT ABD PELVIS WITH CONTRAST 12/09/2017 9:43 AM FINDINGS: Bones/joints: Acute intratrochanteric fracture of the proximal femur. Soft tissues: Unremarkable. IMPRESSION: Acute intratrochanteric fracture of the proximal femur. Dictated and Authenticated by: Ajith Reyes MD. Ordering:EILEEN Cox MD
--- NOTE | 2020-06-15 02:56 | DI.VRAD_ITS ---
PROCEDURE INFORMATION: Exam: CT Head Without Contrast Exam date and time: 06/15/2020 2:33 AM Age: 74 years old Clinical indication: Injury; Blunt trauma without LOC; Injury date: 06/15/20; Fall in home onto hard surface TECHNIQUE: Imaging protocol: Computed tomography of the head without contrast. Radiation optimization: All CT scans at this facility use at least one of these dose optimization techniques: automated exposure control; mA and/or kV adjustment per patient size (includes targeted exams where dose is matched to clinical indication); or iterative reconstruction. COMPARISON: No relevant prior studies available. FINDINGS: Brain: No acute intracranial hemorrhage. Diffuse cerebral atrophy. Cerebral ventricles: Ventricular prominence in this patient with diffuse cerebral atrophy. Bones/joints: No acute fracture. Paranasal sinuses: Medial right frontal sinus retention cyst. Mastoid air cells: No mastoiditis. Vasculature: Arterial calcification. Soft tissues: Unremarkable. IMPRESSION: 1. No acute fracture. 2. No acute intracranial findings. PROCEDURE INFORMATION: Exam: CT Cervical Spine Without Contrast Exam date and time: 06/15/2020 2:33 AM Age: 74 years old Clinical indication: Injury; Blunt trauma without LOC; Injury date: 06/15/20; Fall in home onto hard surface TECHNIQUE: Imaging protocol: Computed tomography images of the cervical spine without contrast. Radiation optimization: All CT scans at this facility use at least one of these dose optimization techniques: automated exposure control; mA and/or kV adjustment per patient size (includes targeted exams where dose is matched to clinical indication); or iterative reconstruction. COMPARISON: No relevant prior studies available. FINDINGS: Bones/joints: No acute fracture. Normal alignment. Discs/Spinal canal/Neural foramina: Mild narrowing of the left neural foramen at C3-C4. Mild narrowing of each neural foramen at C4-C5 and C5-C6. Soft tissues: Unremarkable. Lungs: Biapical scarring with areas of calcification. IMPRESSION: No acute fracture or subluxation. Dictated and Authenticated by: Miles Metcalf MD. Ordering:EILEEN Cox MD
--- NOTE | 2020-06-15 02:59 | DI.RAD_ITS ---
EXAM: XR PORTABLE CHEST AP CLINICAL HISTORY: concerning right upper lung finding on CT Neck TECHNIQUE: 2D digital imaging was performed. COMPARISON: CR,RF RF BARIUM SWALLOW UGI from 06/06/2019 FINDINGS: MEDIASTINUM: Normal. HEART: Normal. PULMONARY VASCULATURE: Normal. Atherosclerosis. LUNGS: Biapical scarring. No focal consolidating infiltrates. PLEURAL SPACE: No pleural effusion or pneumothorax. BONE:Within normal limits for the patient's age. OTHER FINDINGS:Normal. IMPRESSION: No acute pulmonary findings. DATA REPOSITORY: RADIATION DOSE DELIVERED:
--- NOTE | 2020-06-15 03:04 | DI.VRAD_ITS ---
PROCEDURE INFORMATION: Exam: XR Chest, 1 View Exam date and time: 06/15/2020 2:45 AM Age: 74 years old Clinical indication: Other: Abnormal CT TECHNIQUE: Imaging protocol: XR of the chest Views: 1 view. COMPARISON: No relevant prior studies available. FINDINGS: Lungs: No alveolar infiltrate. Biapical scarring. Pleural space: No pleural fluid collection. No pneumothorax. Heart/Mediastinum: Normal heart size. Vasculature: Calcific thoracic aorta. Bones/joints: Spinal degenerative changes. IMPRESSION: 1. No alveolar infiltrate. 2. Biapical scarring. Dictated and Authenticated by: Miles Metcalf MD. Ordering:EILEEN Cox MD
--- NOTE | 2020-06-15 03:45 | HPE_ITS ---
Date of service: 06/15/20 Time of Service: 04:46 Assessment and Plan Assessment and plan (1) Closed fracture of left hip: Start date: 06/15/20 Status: Acute Assessment and plan: This is a 74-year-old alcoholic with sequela of alcoholism all stable except for some hyponatremia with IV normal saline being given in the ED and continued for now. He fell with unstable gait being inebriated early in the morning and having just gone to the bathroom but not complaining of any presyncopal symptoms. He is a poor historian. EKG will be done and patient is medically cleared for surgical repair with Dr. Mcclendon on consulted. Dr. Ramos will complete medical clearance once she review updated lab and EKG. Patient appears to be inebriated and he will need to have alcohol withdrawal protocol followed postoperatively. Qualifiers: Encounter type: initial encounter Qualified Code(s): S72.002A - Fracture of unspecified part of neck of left femur, initial encounter for closed fracture (2) Hyponatremia: Start date: 06/15/20 Status: Acute Assessment and plan: IV normal saline adjusting to lab. This appears to be a chronic problem with his chronic alcoholism. (3) Alcohol use disorder: Status: Chronic Assessment and plan: Patient should be on alcohol withdrawal protocol postoperatively and while in the hospital being a daily drinker but giving no history of severe alcohol withdrawal in the past. He is a poor historian. He appears to be inebriated upon admission. History of Present Illness History of Present Illness Chief Complaint: Left hip pain status post fall Narrative: This is a 74-year-old male patient who lives alone and drinks beer each evening and rum and Coke each night who got up to go the bathroom early in the morning the day of admission and after turning corner to return down his hallway, fell onto his left side and was unable to get up because of his pain. He did call 911 and was on the ground according to the ED physician for an u nknown amount of time though he did report to me that he fell around 2 AM. His CPK was negative for elevation in the ED. He is still inebriated and smells of alcohol. He does have multiple medical problems as per ED notes all of which are fairly stable with this being a mechanical fall with patient unbalanced turning the corner in his hallway at home. He does live alone. He does have some minor scrapes over his elbows which did not require suturing and imaging did not reveal any other sequela other than his left intratrochanteric fracture of the femur. Dr. Mcclendon on has been called by the ED physician and will be evaluating the patient for surgical repair this morning. Review of Systems Narrative: 13 point review of systems otherwise unrevealing or stable with patient chronically drinking every day and having sequela of chronic alcoholism but no recent bleeding or change in status of his abdominal distention. 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 Geoffrey Dumont Chronic obstructive lung disease (03/15/13) 01/2007 PFTs: FEV1 90%; 06/2019 PFTs: FEV1/FVC 56% --> severe obstructive airways disease with no bronchodilator response Dysphagia 10/17/2018 EGD ([facility] [place]): Smalls's & interval resolution of esophageal varices seen on previous EGD (see Smalls's dx comments for details); 06/06/2019 Barium Swallow: some dysmotility & aspiration --> referred to Speech Therapy 04/12/20 [facility] [place] Esophageal Manometry; 05/17/2020 EGD: Grade I esophageal varices, duodenal erosions w/o bleeding, no obstructive cause for dysphagia Esophageal varices 06/22/2017 EGD (Dr. Hoang): grade 1 w/ stigmata of bleeding; 10/17/2018 EGD ([facility] [place]): no evidence of esophageal or gastric varices on carvedilol 6.25 mg BID Family history of malignant melanoma ov note dated 05/10/20-Dr. Hale Gastroesophageal reflux disease (03/15/13) surgery 08/1990 GERD (gastroesophageal reflux disease) Hepatic cirrhosis (01/14/18) [facility] [place] GI 02/24/2018 Fibroscan: stage 4 liver fibrosis, consistent with cirrhosis with possible portal HTN 06/22/2018 EGD (Dr. Hoang): confirmed portal HTN with grade 1 esophageal varices Sodium restriction 2000 mg for ascites control History of basal cell carcinoma Hydrocele of testis (03/24/13) S/p repair L; then occurred on R side and now chronic Hyperlipidemia (03/24/13) 11/2018 labs: good response to high potency statin, continue Hyperlipidemia Hypertension (08/01/14) Incisional hernia, without obstruction or gangrene (01/17/18) [facility] [place] GI consult Incontinence of feces Malignant neoplasm of prostate Rectosphincteric dyssynergia Manifested as fecal incontinence and constipation; resolved with daily fiber supplementation Restless leg syndrome Rotator cuff syndrome (03/24/13) S/p B/L repair Seborrheic keratosis (02/18/17) Dr. Hale Derm Sigmoid diverticulosis (02/01/18) 02/01/2018 colonoscopy Squamous cell carcinoma Face Tobacco use disorder 1.5 PPD Surgical History Colonoscopy - MAC (02/01/18) H/O colonoscopy 05/17/20 at [facility] [place] - no need for further to have any further colonscopy per report H/O endoscopy 05/17/20 [facility] [place] History of esophagogastroduodenoscopy (EGD) (06/22/18) dr hoang, grade I esophageal varices Left shoulder (09/24/07) Marci Fundoplication (03/24/85) Prostatectomy (~05/2007) Repair of incision from Marci fundoplication (03/24/87) right shoulder (03/24/00) Family History Mother , resp failure No problems noted. Father , prostate CA Personal history of malignant neoplasm prostate Malignant melanoma Social History Smoking/Tobacco Use Status: Current every day Tobacco Type: cigarettes Smoking risk assessment performed?: Yes Alcohol Intake: current Alcohol Intake frequency: 3 or more drinks per day Alcohol type: beer and hard liquor Drug use: Never Substance use type: does not use Caregiver/Support person: No Number of Children: 2 Communication Needs: None current occupation: Retired Current gender identity: male What type of physical activity do you participate in: none Seatbelt use: always Water heater temp set <120 deg: Yes Working smoke detector in home: Yes Fire extinguisher in home: Yes Carbon monox detector in home: Yes Firearms in home: No Do you feel safe at home: Yes Do you feel safe in your relationship?: Yes Meds Home Medications and Allergies Home Medications Medication Instructions Recorded Confirmed Type Metamucil 1 - 2 tbs PO DAILY 02/25/18 06/15/20 History carvedilol 6.25 mg tablet 6.25 mg PO BID #180 tab-cap 08/11/19 06/15/20 Rx atorvastatin 40 mg tablet 40 mg PO DAILY #90 tab-cap 11/23/19 06/15/20 Rx lisinopril 20 mg tablet 20 mg PO DAILY #90 tab-cap 01/05/20 06/15/20 Rx hepatitis A and B virus 1 ml IM ONCE #1 ml 03/28/20 04/11/20 Rx vaccine(PF)720 DYLAN unit-20 mcg/mL IM syringe furosemide 20 mg tablet 20 mg PO QAM #90 tab-cap 05/22/20 06/15/20 Rx Allergies Allergy/AdvReac Type Severity Reaction Status Date / Time erythromycin base AdvReac Mild Verified 06/15/20 01:42 [From E-Mycin] Exam Narrative Exam Narrative: General: Patient appears older than stated age slightly disheveled but alert and oriented least to person and place. He is in no acute distress unless attempting to move his left lower extremity. HEENT: Normocephalic, face atraumatic, eyes with pupils equal and reactive to light symmetrically, extraocular move intact and sclera anicteric. Oropharynx with moist oral mucosa and fair dentition. He does have an odor of alcohol on his breath. Neck: Supple without JVD. Lungs: Fair aeration and clear to auscultation percussion. Bronchovesicular breath sounds diffusely. Heart: Regular rate and rhythm with no appreciable murmurs or gallops. Back: No CVA tenderness. Abdomen: Protuberant with well-healed surgical scar midline and reducible moderate sized incisional hernia in the middle of this incision, no tenderness or focalizing masses and no palpable hepatosplenomegaly with limited exam. Bowel sounds positive all quadrants. Genitalia/rectal: Exam deferred. Extremities: Muscle wasting diffusely over extremities with no clubbing or pitting edema. No cyanosis. Left hip is tender to palpation with left lower extremity shortened and foot turned outward. Peripheral pulses are intact. Skin: Abrasions over elbows, otherwise normal color with actinic changes over sun exposed areas and no suspicious lesions. Warm and dry. Neuro: Cranial nerves II through XII grossly intact, no focalized motor or sensory deficits. No tremor. Psych: Normal affect and mood though some confabulation during conversation. No apparent long-term memory loss and some impaired short-term memory loss with verbal history given to the ED physician and to myself. Results Imaging Imaging Studies: Exam: XR Left Hip with Pelvis when Performed Exam date and time: 06/15/2020 2:27 AM Age: 74 years old Clinical indication: Injury or trauma; Blunt trauma (contusions or hematomas); Left; Hip; Injury date: 06/15/20; Injury details: Fall in home onto hard surface TECHNIQUE: Imaging protocol: XR Left hip with pelvis when performed. Views: 2 or 3 views. COMPARISON: CT ABD PELVIS WITH CONTRAST 12/09/2017 9:43 AM FINDINGS: Bones/joints: Acute intratrochanteric fracture of the proximal femur. Soft tissues: Unremarkable. IMPRESSION: Acute intratrochanteric fracture of the proximal femur. Dictated and Authenticated by: Ajith Reyes MD. Labs Result diagrams: 06/15/20 06:50 06/15/20 06:50 Labs: Laboratory Results - last 24 hr 06/15/20 06/15/20 06/15/20 01:45 01:45 01:45 WBC 8.75 RBC 3.74 L Hgb 12.3 L Hct 37.0 L MCV 98.9 H MCH 32.9 MCHC 33.2 RDW 13.0 Plt Count 215 MPV 8.7 Immature Gran % 0.8 Neutrophils % 69.1 Lymphocytes % 18.1 Monocytes % 9.1 Eosinophils % 2.3 Basophils % 0.6 Nucleated RBC % 0 Absolute Neutrophils 6.05 Absolute Lymphocytes 1.58 Absolute Monocytes 0.80 Absolute Eosinophils 0.20 Absolute Basophils 0.05 Sodium 129 L Potassium 4.6 Chloride 94 L Carbon Dioxide 27.6 Anion Gap 7.4 BUN 7 Creatinine 0.77 Estimated GFR/1.73 m2 >= 60.00 Glucose 121 H Calcium 8.2 L Total Bilirubin 0.4 Conjugated Bilirubin 0.10 AST 47 H ALT 31 Alkaline Phosphatase 102 Creatine Kinase 99 Total Protein 6.7 Albumin 3.1 L Ethyl Alcohol 06/15/20 01:45 WBC RBC Hgb Hct MCV MCH MCHC RDW Plt Count MPV Immature Gran % Neutrophils % Lymphocytes % Monocytes % Eosinophils % Basophils % Nucleated RBC % Absolute Neutrophils Absolute Lymphocytes Absolute Monocytes Absolute Eosinophils Absolute Basophils Sodium Potassium Chloride Carbon Dioxide Anion Gap BUN Creatinine Estimated GFR/1.73 m2 Glucose Calcium Total Bilirubin Conjugated Bilirubin AST ALT Alkaline Phosphatase Creatine Kinase Total Protein Albumin Ethyl Alcohol 44.7 Last Vital Signs Temp 36.5 C 06/15/20 01:33 Pulse 80 06/15/20 03:15 Resp 18 06/15/20 01:33 BP 125/76 06/15/20 03:15 Pulse Ox 96 06/15/20 03:40 COVID-19 Screening Have you,or household,traveled outside [place] in last 14 days?: No Had IN PERSON contact w/suspected or confirmed C-19 person: No
[2020-06-15] MEDS: MORPHine 2 MG/ML SYR IVP ×2 (05:42→07:42)
--- NOTE | 2020-06-15 06:45 | RT.EKG_ITS ---
APPROVED REPORT Exam: Resting ECG Patient Location: I HR:83 bpm ECG Measurements Heart Rate 83 AXIS ID 130 P 88 QRSd 105 QRS 81 QT 390 T 70 QTc 452 Conclusion Sinus rhythm...normal P axis, V-rate 60- 99 Atrial premature complex...SV complex w/ short R-R interval
[2020-06-15] MEDS: Normal Saline Flush 10 ML SYR ×2 (07:01→17:00)
[2020-06-15 07:39] LABS: Abs Immature Grans 0.06 10^3/uL (0.0-0.06); Absolute Basophil Count 0.04 10^3/uL (0.0-0.2); Absolute Eosinophil Count 0.08 10^3/uL (0.0-0.7); Absolute Lymphocyte Count 1.47 10^3/uL (1.2-3.4); Absolute Monocyte Count 1.13 10^3/uL (0.1-0.8); Absolute Neutrophil Count 10.03 10^3/uL (1.2-6.7); Basophils % 0.3; Eosinophils % 0.6; HCT 34.3 % (40.0-50.0); HGB 11.6 g/dL (13.5-17.5); Immature Grans % 0.5; Lymphocytes % 11.5; MCH 32.7 pg (27.0-33.0); MCHC 33.8 % (32.0-36.0); MCV 96.6 fL (80-95); MPV 9.5 fL (8.0-11.0); Monocytes % 8.8; Neutrophils % 78.3; Nucleated RBC 0 %; Platelet Count 203 10^3/uL (130-400); RBC 3.55 10^6/uL (4.36-5.78); RDW 13.1 % (11.8-14.1); RDW-SD 46.5 fL; WBC 12.81 10^3/uL (4.4-10.8)
[2020-06-15 07:55] LABS: ALT 28 U/L (16-63); AST 38 U/L (15-37); Albumin 3.1 g/dL (3.4-5.0); Alkaline Phosphatase 94 U/L (46-116); Anion Gap 6.5 mmol/L (3-11); BUN 7 mg/dL (7-18); Bilirubin, Total 0.7 mg/dL (0.2-1.0); CO2 28.5 mmol/L (21.0-32.0); CREATININE 0.66 mg/dL (0.70-1.30); Calcium 8.7 mg/dL (8.5-10.1); Chloride 96 mmol/L (98-107); Glucose 118 mg/dL (74-106); Sodium 131 mmol/L (136-145); Total Protein 6.4 g/dL (6.4-8.2)
[2020-06-15] MEDS: Carvedilol 6.25 MG TAB PO ×2 (07:55→16:44)
[2020-06-15] MEDS: Lisinopril 20 MG TAB PO (07:55)
[2020-06-15 08:01] LABS: Magnesium 1.7 mg/dL (1.8-2.4); TSH (W/Ref FT4) 2.53 uIU/mL (0.36-3.74)
[2020-06-15 08:04] LABS: Troponin I < 0.05 ng/mL (<0.06)
--- NOTE | 2020-06-15 08:08 | W.ORTHOCONSU ---
Date of service: 06/15/20 Time of Service: 08:08 History of Present Illness History of Present Illness Chief Complaint: L hip pain Narrative: This is a 74-year-old white male with alcohol use disorder and poor balance who fell in his home while coming out of the bathroom in the early a.m. He was unable to get up and put any weight on his left leg. He was brought by ambulance to the emergency room where x-rays revealed a displaced intertrochanteric fracture of his left femur. He was admitted for pain control and in anticipation of ORIF of the fracture. He was seen by Dr. Bahena and medically cleared for the anticipated surgery. I was consulted to treat the fracture. Assessment and Plan Assessment and plan (1) Intertrochanteric fracture of left femur: Status: Acute Assessment and plan: Assessment: Displaced intertrochanteric fracture of the left femur. This needs reduction/ fixation. I think that a short TFN would be the best implant for this fracture. I discussed my treatment recommendation with David and he agrees. He like to proceed soon as possible Plan: Plan to come to the operating room later this morning for ORIF of intertrochanteric fracture left femur using short TFN. 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 Geoffrey Dumont Chronic obstructive lung disease (03/15/13) 01/2007 PFTs: FEV1 90%; 06/2019 PFTs: FEV1/FVC 56% --> severe obstructive airways disease with no bronchodilator response Dysphagia 10/17/2018 [place] [place] Smalls's & interval resolution of esophageal varices seen on previous EGD (see Smalls's dx comments for details); 06/06/2019 Barium Swallow: some dysmotility & aspiration --> referred to Speech Therapy 04/12/20 [facility] [place]; 05/17/2020 EGD: Grade I esophageal varices, duodenal erosions w/o bleeding, no obstructive cause for dysphagia Esophageal varices 06/22/2017 EGD (Dr. Cheney): grade 1 w/ stigmata of bleeding; 10/17/2018 [place] [place] no evidence of esophageal or gastric varices on carvedilol 6.25 mg BID Family history of malignant melanoma ov note dated 05/10/20-Dr. Hale Gastroesophageal reflux disease (03/15/13) surgery 08/1990 GERD (gastroesophageal reflux disease) Hepatic cirrhosis (01/14/18) [facility] [place] 02/24/2018 Fibroscan: stage 4 liver fibrosis, consistent with cirrhosis with possible portal HTN 06/22/2018 EGD (Dr. 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/24/13) S/p repair L; then occurred on R side and now chronic Hyperlipidemia (03/24/13) 11/2018 labs: good response to high potency statin, continue Hyperlipidemia Hypertension (08/01/14) Incisional hernia, without obstruction or gangrene (01/17/18) [facility] [place] Incontinence of feces Malignant neoplasm of prostate Rectosphincteric dyssynergia Manifested as fecal incontinence and constipation; resolved with daily fiber supplementation Restless leg syndrome Rotator cuff syndrome (03/24/13) S/p B/L repair Seborrheic keratosis (02/18/17) Dr. Hale Derm Sigmoid diverticulosis (02/01/18) 02/01/2018 colonoscopy Squamous cell carcinoma Face Tobacco use disorder 1.5 PPD Surgical History Colonoscopy - MAC (02/01/18) [place] [facility] [place] no need for further to have any further colonscopy per report H/O endoscopy 05/17/20 [facility] [place] History of esophagogastroduodenoscopy (EGD) (06/22/18) dr cheney, grade I esophageal varices Left shoulder (09/24/07) Marci Fundoplication (03/24/85) Prostatectomy (~05/2007) Repair of incision from Marci fundoplication (03/24/87) right shoulder (03/24/00) Family History Mother , resp failure No problems noted. Father , prostate CA Personal history of malignant neoplasm prostate Malignant melanoma Social History Smoking/Tobacco Use Status: Current every day Tobacco Type: cigarettes Smoking risk assessment performed?: Yes Alcohol Intake: current Alcohol Intake frequency: 3 or more drinks per day Alcohol type: beer and hard liquor Drug use: Never Substance use type: does not use Caregiver/Support person: No Number of Children: 2 Communication Needs: None current occupation: Retired Current gender identity: male What type of physical activity do you participate in: none Seatbelt use: always Water heater temp set <120 deg: Yes Working smoke detector in home: Yes Fire extinguisher in home: Yes Carbon monox detector in home: Yes Firearms in home: No Do you feel safe at home: Yes Do you feel safe in your relationship?: Yes Exam Narrative Exam Narrative: He is alert and oriented to time place person and situation. Left lower extremity is shortened and externally rotated. He has a warm left foot with good posterior tibial pulse. He has good sensation to the left foot. Any motion of his left lower extremity caused him a lot of pain in the proximal thigh. No breaks in the skin are noted around the hip. X-rays showed a comminuted, intertrochanteric fracture of the left femur. The lesser trochanter is displaced, but I think it is a stable type of fracture. Fracture is in varus. There is some comminution of the greater trochanter. Results Last Vital Signs Temp 37.1 C 06/15/20 07:35 Pulse 81 06/15/20 07:35 Resp 17 06/15/20 07:35 BP 121/70 06/15/20 07:35 Pulse Ox 94 06/15/20 07:35 Labs Result diagrams: 06/15/20 06:50 06/15/20 06:50 Labs: Laboratory Results - last 24 hr 06/15/20 06/15/20 06/15/20 01:45 01:45 01:45 WBC 8.75 RBC 3.74 L Hgb 12.3 L Hct 37.0 L MCV 98.9 H MCH 32.9 MCHC 33.2 RDW 13.0 Plt Count 215 MPV 8.7 Immature Gran % 0.8 Neutrophils % 69.1 Lymphocytes % 18.1 Monocytes % 9.1 Eosinophils % 2.3 Basophils % 0.6 Nucleated RBC % 0 Absolute Neutrophils 6.05 Absolute Lymphocytes 1.58 Absolute Monocytes 0.80 Absolute Eosinophils 0.20 Absolute Basophils 0.05 Sodium 129 L Potassium 4.6 Chloride 94 L Carbon Dioxide 27.6 Anion Gap 7.4 BUN 7 Creatinine 0.77 Estimated GFR/1.73 m2 >= 60.00 Glucose 121 H Calcium 8.2 L Magnesium Total Bilirubin 0.4 Conjugated Bilirubin 0.10 AST 47 H ALT 31 Alkaline Phosphatase 102 Creatine Kinase 99 Troponin I Total Protein 6.7 Albumin 3.1 L TSH Ethyl Alcohol 06/15/20 06/15/20 06/15/20 01:45 06:41 06:50 WBC RBC Hgb Hct MCV MCH MCHC RDW Plt Count MPV Immature Gran % Neutrophils % Lymphocytes % Monocytes % Eosinophils % Basophils % Nucleated RBC % Absolute Neutrophils Absolute Lymphocytes Absolute Monocytes Absolute Eosinophils Absolute Basophils Sodium Potassium Chloride Carbon Dioxide Anion Gap BUN Creatinine Estimated GFR/1.73 m2 Glucose Calcium Magnesium 1.7 L Total Bilirubin Conjugated Bilirubin AST ALT Alkaline Phosphatase Creatine Kinase Troponin I Cancelled < 0.05 Total Protein Albumin TSH 2.53 Ethyl Alcohol 44.7 06/15/20 06/15/20 06:50 06:50 WBC 12.81 H D RBC 3.55 L Hgb 11.6 L Hct 34.3 L MCV 96.6 H MCH 32.7 MCHC 33.8 RDW 13.1 Plt Count 203 MPV 9.5 Immature Gran % 0.5 Neutrophils % 78.3 Lymphocytes % 11.5 Monocytes % 8.8 Eosinophils % 0.6 Basophils % 0.3 Nucleated RBC % 0 Absolute Neutrophils 10.03 H Absolute Lymphocytes 1.47 Absolute Monocytes 1.13 H Absolute Eosinophils 0.08 Absolute Basophils 0.04 Sodium 131 L Potassium 4.0 Chloride 96 L Carbon Dioxide 28.5 Anion Gap 6.5 BUN 7 Creatinine 0.66 L Estimated GFR/1.73 m2 >= 60.00 Glucose 118 H Calcium 8.7 Magnesium Total Bilirubin 0.7 Conjugated Bilirubin AST 38 H ALT 28 Alkaline Phosphatase 94 Creatine Kinase Troponin I Total Protein 6.4 Albumin 3.1 L TSH Ethyl Alcohol
[2020-06-15] MEDS: THIAMINE 100 MG in Normal Saline 100 ML 200 MG IVPB (08:28)
[2020-06-15 08:31] LABS: ETHANOL BLOOD 3.4 mg/dL (<3)
--- NOTE | 2020-06-15 08:33 | INITIAL_ITS ---
- If Service Date Differs Date of service: 06/15/20 Time of Service: 08:33 Care Management Initial Assess REASON FOR HOSPITALIZATION:: Acute fracture of left hip, hyponatremia, chronic alcohol use. 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 Geoffrey Dumont,. 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 Geoffrey Dumont, Chronic obstructive lung disease (03/15/13) - 01/2007 PFTs: FEV1 90%; 06/2019 PFTs: FEV1/FVC 56% --> severe obstructive airways disease with no bronchodilator response, Dysphagia - 10/17/2018 EGD ([facility] [place]): Smalls's & interval resolution of esophageal varices seen on previous EGD (see Smalls's dx comments for details); 06/06/2019 Barium Swallow: some dysmotility & aspiration --> referred to Speech Therapy - 04/12/20 [facility] [place] Esophageal Manometry; 05/17/2020 EGD: Grade I esophageal varices, duodenal erosions w/o bleeding, no obstructive cause for dysphagia, Esophageal varices - 06/22/2017 EGD (Dr. Cheney): grade 1 w/ stigmata of bleeding; 10/17/2018 EGD ([facility]): no evidence of esophageal or gastric varices on carvedilol 6.25 mg BID, Family history of malignant melanoma - ov note dated 05/10/20-Dr. Hale, Gastroesophageal reflux disease (03/15/13) - surgery 08/1990, GERD (gastroesophageal reflux disease), Hepatic cirrhosis (01/14/18) - [facility] [place] GI - 02/24/2018 Fibroscan: stage 4 liver fibrosis, consistent with cirrhosis with possible portal HTN. 06/22/2018 EGD (Dr. 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 11/2018 labs: good response to high potency statin, continue, Hypertension (08/01/14), Incisional hernia, without obstruction or gangrene (01/17/18) - [facility] [place] GI consult, Incontinence of feces, Malignant neoplasm of prostate, Rectosphincteric dyssynergia - Manifested as fecal incontinence and constipation; resolved with daily fiber supplementation,. Restless leg syndrome, Rotator cuff syndrome (03/24/13) - S/p B/L repair,. Seborrheic keratosis (02/18/17) - Dr. Hale Derm, Sigmoid diverticulosis (02/01/18) - 02/01/2018 colonoscopy, Squamous cell carcinoma - Face, and. Tobacco use disorder - 1.5 PPD. Surgical History . Colonoscopy - [facility] [place] (02/01/18). H/O colonoscopy. 05/17/20 at [facility] [place] - no need for further to have any further colonscopy per report. H/O endoscopy. 05/17/20 [facility] [place]. History of esophagogastroduodenoscopy (EGD) (06/22/18). dr cheney, grade I esophageal varices. Left shoulder (09/24/07). Marci Fundoplication (03/24/85). Prostatectomy (~05/2007). Repair of incision from Marci fundoplication (03/24/87). right shoulder (03/24/00) PREVIOUS FUNCTIONAL STATUS/SOCIAL/FAMILY SUPPORTS:: David, who goes by Severino, lives alone in [facility]. 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 He is and has two adult children - a son in [place] and a daughter in [place]. He shares he has three grandchildren in [place], the youngest of which he has yet to meet. He states the last time he was in [place] was July of 2019 and says as much as he misses his family, he would not dare to travel currently due to Covid-19. Severino has several friends in the community and has a nephew who lives in [place], [place]. He spends his time playing video games, corresponding with family and friends via email, watching television, and driving on backroads a couple of times a day. Severino says he is independent with his ADLs at baseline. CURRENT FUNCTIONAL STATUS:: Severino is sitting on the side of the bed when CM comes to meet with him. He is pleasant and talkative. He shares his concern that he will not be able to properly care for himself at home. CM discusses both Home Health services and a short term rehab placement with him and Severino is open to considering both when it is time for him to discharge from the hospital. CM will continue to follow. ADVANCE DIRECTIVES:: None on file. Has patient been provided with info about the portal/API?: No Did the patient sign up for the portal?: No CODE STATUS:: Full Code INSURANCE COVERAGE / FINANCIAL ISSUES:: Nor1 and Medicare. CURRENT HOME/COMMUNITY SERVICES/EQUIPMENT:: Severino currently has [employer] five days a week. He also pays someone to come and clean his apartment periodically. Severino belongs to the [employer] in [facility]. With respect to medical equipment, he reports he keeps a cane in his car and also has one at home in his kitchen. He additionally has a raised toilet seat. PRIMARY CARE PHYSICIAN:: Stephie Jones. POTENTIAL DISCHARGE NEEDS:: Follow up appointments with PCP, surgeon, and discharge plan of care. May also need new HH PT and OT vs short term SNF placement. PATIENT/FAMILY EDUCATION NEEDS:: Discharge instructions, limitations, and follow up plan of care, including Ask Me Three and self management. ANTICIPATED BARRIERS TO DISCHARGE:: No anticipated barriers at this time. TRANSPORTATION:: Via private vehicle with a friend if returning home. PLAN:: Plan depends on Severino's progress. Return home with new HH PT and OT vs short term SNF placement. Severino's ex- is also offering to come stay with him for a while but Severino is unsure he will accept the offer. CM will continue to support patient and discharge planning needs.
[2020-06-15 08:37] LABS: INR 1.1 (0.9-1.1); PTT Activated 24.5 sec (21.0-27.8); Prothrombin Time 11.1 sec (9.3-11.0)
[2020-06-15] MEDS: Normal Saline 100 ML (08:40)
[2020-06-15] MEDS: Tranexamic Acid 1,000 MG/10 ML VIAL 1000 MG (09:53)
--- NOTE | 2020-06-15 09:53 | DI.RAD_ITS ---
EXAM: XR HIP LT IN OR CLINICAL HISTORY: left hip fracture TECHNIQUE: 2D and realtime digital imaging was performed. CONTRAST MATERIAL: Refer to procedure report. COMPARISON: No exams were available for comparison FINDINGS: Fluoroscopy was provided for Dr. Mcclendon during the performance of a reduction and internal fixation of the left intertrochanteric fracture. Please refer to the procedure report for complete details. Fluoro time: 58.6 seconds IMPRESSION: RADIATION DOSE DELIVERED:
--- NOTE | 2020-06-15 10:27 | ROE_ITS ---
Date of service: 06/15/20 Time of Service: 10:27 Operative Note Operative Note DATE OF PROCEDURE: 06/15/20 PRE-OP DIAGNOSIS: Intertrochanteric fracture left femur POST-OP DIAGNOSIS: same PROCEDURE: Open reduction and internal fixation of intertrochanteric fracture left femur using short TFN SURGEON: Zeferino Mcclendon DIRECTOR OF CARDIOLOGY: Dominique Steel ANESTHESIA: spinal ESTIMATED BLOOD LOSS: 20 PATHOLOGY: none sent COMPLICATIONS: None Patient was transported to: PACU Patient's condition: stable Implants: 11 mm diameter short TFN Indications: This is a 74-year-old white male with poor balance who fell in his home from a standing height landing on his left hip in the early a.m. He was unable to bear weight on the left lower extremity following the fall. He was seen in the emergency room where he was noted to have a shortened externally rotated left lower extremity. X-rays confirmed an intertrochanteric fracture of the left femur, displaced. It was a three-part fracture that involve the lesser trochanter. I thought that the calcar of the femur was still fairly well- preserved making it a stable type of intertrochanteric fracture. I recommended open reduction internal fixation with a short TFN. The surgery was indicated to alleviate his pain and to help get him up and ambulatory as soon as possible. This would avoid the complications of prolonged recumbency. The risk and complications of procedure explained patient in detail preop. Procedure Description: The patient was taken to the operating room on 06/15/2020 where a spinal anesthetic was administered. Once a spinal was felt to be working the patient was placed on the fracture table in unilateral traction on the left. The fracture was manipulated and near anatomically reduced. There was correction of the shortening on the AP view and correction of apex posterior. The left hip and lateral thigh were prepped and draped free in usual sterile fashion. C arm was used to help localize the proximal tip of the greater trochanter. An incision was made beginning at the tip of the greater trochanter extending proximally about 3 inches the proximal tip of the trochanter was easily palpable with my finger. With the help of C-arm intensification a guidepin was placed just medial to the tip of the greater trochanter and advanced distally down the shaft of the femur distal to the lesser trochanter. One-step reamer was placed over the guidepin and the canal was reamed to just distal to the lesser trochanter. The aiming arm was then attached to a short 11 mm diameter TFN. The TFN was manually advanced in the femur past the fracture site. The sleeve for the helical blade was then attached to the aiming arm. The TFN was advanced until the proximal hole for the helical blade lined up with the center of the femoral head and neck. Stab wound was made through the skin the lateral femur about an inch in length. This was carried down to the IT band to the femur. The aiming sleeve was then placed against the lateral shaft of the femur. Guidepin was then placed and advanced to within 10 mm of subchondral bone of the femoral head. Guidepin was placed in the center center position the femoral head. Reaming was performed over the guidepin through the nail and into the femoral head. The pin was used to measure and was found to require a 105 mm C arm imaging confirmed good position of the helical blade in the center center position and within 10 mm of subchondr al bone of the femoral head. The sleeve was removed. The proximal set screw was then advanced until tightened and then backed off a half a turn to allow the helical bed blade to slide. Aiming arm was then removed. The incisions were infiltrated with 0.5% Marcaine with epinephrine solution from the skin down to the femur. The wound was irrigated with Betadine and saline solution. 2 g of tranexamic acid and 150 cc of saline. The iliotibial band was repaired in the proximal incision with a running interlocked #1 Vicryl suture. 3-0 Monocryl supplemented with tissue glue. Mepilex dressings were applied. Patient was then transferred to his hospital bed from the fracture table. He tolerated procedure well and experienced no intraoperative complications. He was discharged to recovery room in good condition.
--- NOTE | 2020-06-15 10:45 | W.PM.PROGNOT ---
Date of Service Date of service: 06/15/20 Time of Service: 10:45 Subjective Subjective Interval history since last seen: S/p ORIF L femur today under spinal anesthesia + precedex. Doing well post op - pain free. Wheezing (states his COPD is pretty bad at baseline.). Denies dizziness, chest pain, SOB worse than his normal, nausea. Last drink 11 pm last night. He does not know if he will withdraw from alcohol. He does not think he has ever withdrawn in the past. He does not think he has ever had a seizure. Per my conversation with anesthesia, the patient has a coccyx pressure ulcer; wound care is being consulted. Objective Last Vital Signs Temp 36.5 C 06/15/20 10:44 Pulse 71 06/15/20 10:44 Resp 14 06/15/20 10:44 BP 114/68 06/15/20 10:44 Pulse Ox 95 06/15/20 10:44 Laboratory Results - last 24 hr 06/15/20 06/15/20 06/15/20 01:45 01:45 01:45 WBC 8.75 RBC 3.74 L Hgb 12.3 L Hct 37.0 L MCV 98.9 H MCH 32.9 MCHC 33.2 RDW 13.0 Plt Count 215 MPV 8.7 Immature Gran % 0.8 Neutrophils % 69.1 Lymphocytes % 18.1 Monocytes % 9.1 Eosinophils % 2.3 Basophils % 0.6 Nucleated RBC % 0 Absolute Neutrophils 6.05 Absolute Lymphocytes 1.58 Absolute Monocytes 0.80 Absolute Eosinophils 0.20 Absolute Basophils 0.05 PT INR APTT Sodium 129 L Potassium 4.6 Chloride 94 L Carbon Dioxide 27.6 Anion Gap 7.4 BUN 7 Creatinine 0.77 Estimated GFR/1.73 m2 >= 60.00 Glucose 121 H Calcium 8.2 L Magnesium Total Bilirubin 0.4 Conjugated Bilirubin 0.10 AST 47 H ALT 31 Alkaline Phosphatase 102 Creatine Kinase 99 Troponin I Total Protein 6.7 Albumin 3.1 L TSH Ethyl Alcohol 06/15/20 06/15/20 06/15/20 01:45 06:41 06:50 WBC RBC Hgb Hct MCV MCH MCHC RDW Plt Count MPV Immature Gran % Neutrophils % Lymphocytes % Monocytes % Eosinophils % Basophils % Nucleated RBC % Absolute Neutrophils Absolute Lymphocytes Absolute Monocytes Absolute Eosinophils Absolute Basophils PT INR APTT Sodium Potassium Chloride Carbon Dioxide Anion Gap BUN Creatinine Estimated GFR/1.73 m2 Glucose Calcium Magnesium 1.7 L Total Bilirubin Conjugated Bilirubin AST ALT Alkaline Phosphatase Creatine Kinase Troponin I Cancelled < 0.05 Total Protein Albumin TSH 2.53 Ethyl Alcohol 44.7 06/15/20 06/15/20 06/15/20 06:50 06:50 08:10 WBC 12.81 H D RBC 3.55 L Hgb 11.6 L Hct 34.3 L MCV 96.6 H MCH 32.7 MCHC 33.8 RDW 13.1 Plt Count 203 MPV 9.5 Immature Gran % 0.5 Neutrophils % 78.3 Lymphocytes % 11.5 Monocytes % 8.8 Eosinophils % 0.6 Basophils % 0.3 Nucleated RBC % 0 Absolute Neutrophils 10.03 H Absolute Lymphocytes 1.47 Absolute Monocytes 1.13 H Absolute Eosinophils 0.08 Absolute Basophils 0.04 PT INR APTT Sodium 131 L Potassium 4.0 Chloride 96 L Carbon Dioxide 28.5 Anion Gap 6.5 BUN 7 Creatinine 0.66 L Estimated GFR/1.73 m2 >= 60.00 Glucose 118 H Calcium 8.7 Magnesium Total Bilirubin 0.7 Conjugated Bilirubin AST 38 H ALT 28 Alkaline Phosphatase 94 Creatine Kinase Troponin I Total Protein 6.4 Albumin 3.1 L TSH Ethyl Alcohol 3.4 06/15/20 08:10 WBC RBC Hgb Hct MCV MCH MCHC RDW Plt Count MPV Immature Gran % Neutrophils % Lymphocytes % Monocytes % Eosinophils % Basophils % Nucleated RBC % Absolute Neutrophils Absolute Lymphocytes Absolute Monocytes Absolute Eosinophils Absolute Basophils PT 11.1 H INR 1.1 APTT 24.5 Sodium Potassium Chloride Carbon Dioxide Anion Gap BUN Creatinine Estimated GFR/1.73 m2 Glucose Calcium Magnesium Total Bilirubin Conjugated Bilirubin AST ALT Alkaline Phosphatase Creatine Kinase Troponin I Total Protein Albumin TSH Ethyl Alcohol
[2020-06-15] MEDS: MULTIVITAMIN 10 ML, THIAMINE 100 MG, FOLIC ACID 1 MG in DEXTROSE 5%-0.45% SALINE 1,000 ML 100 ML IV (11:27)
[2020-06-15] MEDS: Atorvastatin 40 MG TAB PO (11:28)
--- NOTE | 2020-06-15 13:36 | PT.INIE ---
Date of service: 06/15/20 Time of Service: 13:36 PT Notes Visit Reasons: ACUTE FRACTURE LEFT HIP,HYPONATREMIA,CHRONIC ALCOH Inpatient Physical Therapy Evaluation Date: Monday, June 15, 2020 Referring Doctor: Zeferino Mcclendon MD PT Orders: PT CONSULT: Status post Ortho surgery Precautions: Weightbearing as tolerated to left leg with walker Patient Profile/Admitting Diagnosis: Patient is a 74-year-old male admitted to [facility] in finger cobbler hours of June 15, 2020 secondary to a fall sustained at home resulting in left hip intertrochanteric fracture. Underwent ORIF earlier today performed by Dr. Mcclendon. 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 Geoffrey Dumont Chronic obstructive lung disease (03/15/13) 01/2007 PFTs: FEV1 90%; 06/2019 PFTs: FEV1/FVC 56% --> severe obstructive airways disease with no bronchodilator response Dysphagia 10/17/2018 EGD ([facility]): Smalls's & interval resolution of esophageal varices seen on previous EGD (see Smalls's dx comments for details); 06/06/2019 Barium Swallow: some dysmotility & aspiration --> referred to Speech Therapy 04/12/20 [facility] Esophageal Manometry; 05/17/2020 EGD: Grade I esophageal varices, duodenal erosions w/o bleeding, no obstructive cause for dysphagia Esophageal varices 06/22/2017 EGD (Dr. Cheney): grade 1 w/ stigmata of bleeding; 10/17/2018 EGD ([facility]): no evidence of esophageal or gastric varices on carvedilol 6.25 mg BID Family history of malignant melanoma ov note dated 05/10/20-Dr. Hale Gastroesophageal reflux disease (03/15/13) surgery 08/1990 GERD (gastroesophageal reflux disease) Hepatic cirrhosis (01/14/18) [facility] GI 02/24/2018 Fibroscan: stage 4 liver fibrosis, consistent with cirrhosis with possible portal HTN 06/22/2018 EGD (Dr. 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 Hale Derm Sigmoid diverticulosis (02/01/18) 02/01/2018 colonoscopy Squamous cell carcinoma Face Tobacco use disorder 1.5 PPD Surgical History Colonoscopy - MAC (02/01/18) H/O colonoscopy 05/17/20 at [facility] - no need for further to have any further colonscopy per report H/O endoscopy 05/17/20 [facility] History of esophagogastroduodenoscopy (EGD) (06/22/18) dr cheney, grade I esophageal varices Left shoulder (09/24/07) Marci Fundoplication (03/24/85) Prostatectomy (~05/2007) Repair of incision from Marci fundoplication (03/24/87) right shoulder (03/24/00) Social History/Home Situation: Patient reports that he lives alone. 2 steps from his garage and onto his deck with a grab bar followed by another step from the deck into his home with grab bar. Has a multilevel home but reports all of his essentials are on one level. Current Functional Limitations: Unable to independently perform bed mobility, transfers, ambulation. Equipment Owned/DME: None Subjective: Patient states that his hip is feeling fairly well considering what he is been through. Complains more of lack of sleep as opposed any significant pain in the hip. Rates his hip pain at 3/10 at time of initial evaluation Objective: General Observation: Patient just completed lunch. Head of bed 25 degrees. IV in antecubital fossa right upper extremity, blood pressure cuff, bandage and Kerlix wrapping around bilateral elbows secondary to abrasions from the fall, catheter in place, rn maternity. Mental Status: Alert and oriented x3 Vital Signs: Blood pressure 94/60, heart rate 81. O2 saturation 95 on room air ROM: Right Upper Extremity: Within functional limits in all planes Left Upper Extremity: 45 degrees active elevation. Reports long history of decreased of left upper extremity secondary to massive rotator cuff tears. I persisted 130 degrees of elevation. Elbow flexion extension within functional limits. Right Lower Extremity: Within functional limits actively Left Lower Extremity: Active assistive flexion 95 degrees, abduction 25 degrees, external rotation 25 degrees, internal rotation 10 degrees. Active assisted knee flexion 110 degrees. Extension 0 degrees. Active ankle range of motion within functional limits Strength: Right Upper Extremity: 4/5 flexion, bicep, tricep with good assembly machine offbearer. Left Upper Extremity: 3 -/5 flexion and abduction, bicep 4/5, tricep 4/5. Good assembly machine offbearer Right Lower Extremity: Patient perform straight leg raise with 0 degree lag. Hip flexion 4+/5, quads and hamstrings 4/5. Ankle plantar flexion dorsiflexion 5/5. Left Lower Extremity: Hip not tested secondary to surgical procedure within the last 4 hours. 4 -/5 hamstring, 4 -/5 quad. 4/5 ankle plantar and dorsiflexion Sensation: Decreased sensation reported throughout the posterior lateral aspect of the left hip Bed Mobility/Transfers: Supine to sit: Head of bed 45 degrees mod assist x1 Sit to stand: Mod assist x1 to front wheeled walker with verbal cues for hand placement Stand to sit: Mod assist x1 from front wheeled walker with verbal cues for hand placement and left lower extremity advancement anteriorly as transfer to sit. Sit to supine: Mod assist x1 particularly for left lower extremity placement on bed Gait: Patient ambulated 5 feet contact-guard x1 with front wheeled walker and verbal cues for weightbearing tolerance and advancement of left lower extremity. Patient then was able to reverse walk 5 feet back to the bed with contact-guard x1. Did work some weight shift to the left 10 times while standing at walker. Balance: Static Sitting: Good Dynamic Sitting: Fair Static Standing: Poor Dynamic Standing: Poor Special Tests: Mobility Limitations Standardized Measure [facility] AM-PAC 6 clicks Basic Mobility Inpatient Short Form: Raw Score: 11 standardized Score: 33.86 CMS Score: 72.57% Informed Consent/Education: Patient instructed in purpose of PT consult and plan of care. Assessment: Patient is a 74 year old male referred to physical therapy services with the diagnosis of status post left hip ORIF secondary to intertrochanteric fracture. Patient presents with clinical signs and symptoms consistent with above diagnosis, as demonstrated by the following impairment level findings: Joint mobility, motor function, muscle performance and range of motion associated with bony tissue surgery. He currently demonstrates the following impairment level findings: 1. Decreased strength to left lower extremity hip, knee major muscle groups 2. Impaired standing balance 3. Impaired activity tolerance 4. Limited joint range of motion left hip Impairments are contributing to the following functional limitations: 1. Increased dependence with transfers 2. Inability to safely ambulate without assistive device and physical assistance 3. Increase completion time for mobility ADL performance 4. Increased fall risk 5. Inability to negotiate steps alone safely. Impairments are contributing to the following functional limitations: AMPAC score. Patient will require front wheeled walker upon discharge from PT to promote safety with ambulation and improve functional mobility and quality of life. Patient is assessed as a [] Low 59613 X moderate 20119 [] High 29286 complexity based on the following: History: See above Examination: See above Presentation: Evolving Decision Making: AMPAC score 72.57% Goals: Goals X1 week 1. Supine-Sit: Standby assist 2. Sit-Supine: Standby assist 3. Sit-Stand: Standby assist of front wheeled walker 4. Stand-Sit: Standby assist from front wheeled walker 5. Bed-Chair: Standby assist with front wheeled walker 6. Chair-Bed: Stand by assist with front wheeled walker 7. Gait: Ambulating greater than equal to 150 feet with standby assist with front wheeled walker 8. Stairs: Safely negotiate 3 steps up and down with least required assistive device 9. Independent with home exercise program. Plan of Care/Treatment Plan: Treatment: Patient educated in bilateral quad sets, gluteal sets and ankle pumps. 1-2x/day, 7 days/week x 1 week. Plan of care has been reviewed with the INFRASTRUCTURE MANAGER providing the service under Physical Therapy direction. Initiate Physical Therapy intervention for strengthening, bed mobility, transfers, gait, stairs, balance training, use of assistive device. DISCHARGE RECOMMENDATIONS: Recommend home health PT upon discharge from [facility]. Patient will require front wheeled walker upon discharge to promote further functional mobility and independence along with safety measures for ambulation. TREATMENT CODE/TIME: 40 minutes direct one-to-one care 1:00 to 140. 20318. Thank you for this referral Ajith Weaver PT, DPT Disclaimer: This note was created using [employer] voice recognition software. It was reviewed for major content. However, there may be multiple small discrepancies and errors due to the voice recognition aspects of the software.
--- NOTE | 2020-06-15 13:53 | PHA.REVIEW ---
Pharmacy Admission Review - Admission Clinical Review (Last Reviewed 06/15/20 @ 10:57 by Hamzah Bahena) Intertrochanteric fracture of left femur (Acute) Hyponatremia (Acute) Closed fracture of left hip (Acute) erythromycin base [From E-Mycin] Adverse Reaction (Mild, Verified 06/15/20 01:42) Height 5 ft 5 in Weight 54 kg - Renal Dosing Renal Dosing: BUN 7 mg/dL (7-18) 06/15/20 06:50 Creatinine 0.66 mg/dL (0.70-1.30) L 06/15/20 06:50 Medications needing adjustments: Reviewed List of meds needing interventions: all orders ok - Anticoagulation Anticoagulation: Hgb 11.6 g/dL (13.5-17.5) L 06/15/20 06:50 Hct 34.3 % (40.0-50.0) L 06/15/20 06:50 Plt Count 203 10^3/uL (130-400) 06/15/20 06:50 INR 1.1 (0.9-1.1) 06/15/20 08:10 Creatinine 0.66 mg/dL (0.70-1.30) L 06/15/20 06:50 Medications: Enoxaparin (surgeon picked a 30mg dose although 40mg okay, will notify) Therapeutic Anticoagulation: N/A - Opiate Usage Evaluate Pain Scale/Pains Meds: Reviewed Scheduled Bowel Reg ordered if on Opiates?: Yes - Relevant Labs Sodium 131 mmol/L (136-145) L 06/15/20 06:50 Potassium 4.0 mmol/L (3.5-5.1) 06/15/20 06:50 Chloride 96 mmol/L (98-107) L 06/15/20 06:50 Magnesium 1.7 mg/dL (1.8-2.4) L 06/15/20 06:50 Electrolytes, C-Reactive P, ESR: Reviewed (Banana bag alternating with NS, watch Mag) - DM Control DM Control: Glucose 118 mg/dL (74-106) H 06/15/20 06:50 - Heart Failure/CA Heart Failure/CA: Troponin I < 0.05 ng/mL (<0.06) 06/15/20 06:50 - BP Control BP Control: Blood Pressure 90/50 Blood Pressure 104/64 Blood Pressure 110/68 Blood Pressure 105/65 Blood Pressure 114/68 Blood Pressure 92/56 Blood Pressure 121/70 Blood Pressure 126/70 Blood Pressure 129/79 Blood Pressure 129/79 Blood Pressure 129/64 Blood Pressure 125/76 Blood Pressure 132/75 Blood Pressure 123/79 Blood Pressure 129/81 If elevated: Reviewed List meds needing interventions: parameters added to coreg order - IV to PO Switch IV Medications: Reviewed - Home Meds Home Med List reviewed: Reviewed Relevent Home Meds Not ordered & why?: furosemide, lisinopril (BPs trending low), ext med history shows pt filled ADVAIR in December for a 90 day supply but this was not added to home med list - will notify , albuterol PRN ordered - Current meds Current Medication Order Review: Reviewed
[2020-06-15] MEDS: ceFAZolin 2 GM/50 ML BAG IVPB ×2 (16:59→21:54)
[2020-06-15] MEDS: Ketorolac 30 MG/ML VIAL IVP ×2 (17:00→21:55)
--- NOTE | 2020-06-15 17:06 | WOUNDCONS_ITS ---
- If Service Date Differs Date of service: 06/15/20 Time of Service: 17:06 Wound Initial Evaluation Narrative: Patient fell at his place Wednesday morning, and broke his left hip, patient used his life alert to notify help. After arriving here a wound on the sacrum was found. Patient stated he is active, but likes to drink and smoke, H&P, allergies, and labs were reviewed. - Wound Lumbar/Sacral Wound Type: Pressure Ulcer, Partial Thickness Pressure Ulcer Stage: I Wound General Appearance: Reddened Wound Bed Greatest Portion: Red (Granulation) Wound Surrounding Tissue Appearance: Normal/Healthy Percent of Wound Bed Granulated/Red: 100 Wound Length: 3.4 cm Wound Width: 1.2 cm Wound Depth: 0.1 cm (less than) Wound Drainage Amount: None Wound Drainage Odor: None/Absent Wound Drainage Description: No drainage Wound Topical Solution/Irrigant: Saline Irrigant Wound Debridement Result: Healthy Tissue Revealed Wound Debridement Amount of Tissue Removed: None - Circulation, Sensation, Motion Peripheral Pulse Strength: Normal Capillary Refill: Less than 3 seconds Sensation Description: Within Normal Limits Skin Temperature: Warm Skin Color: Normal - ELMER Comment:: elmer not indicated - Pain Pain Level: 3 (surgical pain) Pain Scale Used: Visual Analog Scale 0-10 Pain Description: Sharp 74 yom who lives alone, fell at home, he claims his down time was about 30 minutes before he used his life alert to summon help, area is red, non- blanching. Patient was educated on that he needs to avoid lying flat on his back and to repostion himself regularly to avoid further pressure injury. He is also educated to use call carr to summon help to reposition him if he is unable to do so himself. His assigned nurse is updated to ensure that he recieves the help needed. - Treatment/Dressing Change Topicals/Ointments: None Cleanse With: Saline Dressing Types: Mepilex w/Border (Mepilex sacral) - Recomendation Recomendation:: Cleanse with Normal saline and gauze, then Pat dry. Apply Mepilex sacral to the wound bed for protection. Change weekly or PRN. Nursing to assess placement every shift. Physcian/Nurse Practioner Notified: Yes (Dr. Ramos) Referrals: Dietary Treatment Time - Time Total Time Spent with Patient: 30 minutes - Patient Will be Seen Weekly Treatment: daily - For: For:: 1 week (nursing to assess dressing Q shift)
[2020-06-15] MEDS: Normal Saline Flush 10 ML SYR IVP (17:26)
[2020-06-15] MEDS: Docusate Sodium 100 MG CAP PO (20:54)
[2020-06-16 00:45] VITALS: BP 128/67; PULSE 73; RESP 17; TEMP 36.4; O2SAT 94
[2020-06-16] MEDS: ceFAZolin 2 GM/50 ML BAG IVPB (03:39)
[2020-06-16] MEDS: Ketorolac 30 MG/ML VIAL IVP ×4 (03:40→22:06)
[2020-06-16 03:50] VITALS: BP 113/65; PULSE 69; RESP 16; TEMP 36.5; O2SAT 93
[2020-06-16 07:30] LABS: Abs Immature Grans 0.08 10^3/uL (0.0-0.06); Absolute Eosinophil Count 0.14 10^3/uL (0.0-0.7); Absolute Lymphocyte Count 1.36 10^3/uL (1.2-3.4); Absolute Neutrophil Count 8.13 10^3/uL (1.2-6.7); Basophils % 0.6; Eosinophils % 1.3; HCT 27.3 % (40.0-50.0); Immature Grans % 0.7; Lymphocytes % 12.5; MCH 33.1 pg (27.0-33.0); MCV 100.4 fL (80-95); Monocytes % 10.1; Neutrophils % 74.8; Nucleated RBC 0 %; Platelet Count 175 10^3/uL (130-400); RBC 2.72 10^6/uL (4.36-5.78); RDW 13.3 % (11.8-14.1); RDW-SD 48.6 fL; WBC 10.87 10^3/uL (4.4-10.8)
[2020-06-16 07:35] LABS: Absolute Basophil Count 0.07 10^3/uL (0.0-0.2)
[2020-06-16 07:43] LABS: BUN 7 mg/dL (7-18); CREATININE 0.69 mg/dL (0.70-1.30); Calcium 7.9 mg/dL (8.5-10.1); Chloride 100 mmol/L (98-107); Glucose 109 mg/dL (74-106); Magnesium 1.8 mg/dL (1.8-2.4); Potassium 3.9 mmol/L (3.5-5.1); Sodium 132 mmol/L (136-145)
[2020-06-16 08:42] VITALS: BP 145/69; PULSE 75; RESP 19; TEMP 36.8; O2SAT 92
[2020-06-16] MEDS: Folic Acid 1 MG TAB PO (08:56)
[2020-06-16] MEDS: Pantoprazole 40 MG TABCR PO (08:56)
[2020-06-16] MEDS: Multivitamin TAB 1 TAB PO (08:56)
[2020-06-16] MEDS: Docusate Sodium 100 MG CAP PO ×3 (08:56→20:28)
[2020-06-16] MEDS: Acetaminophen 325 MG TAB 650 MG PO ×2 (08:56→14:08)
[2020-06-16] MEDS: Carvedilol 6.25 MG TAB PO (08:56)
[2020-06-16] MEDS: Atorvastatin 40 MG TAB PO (08:56)
[2020-06-16] MEDS: Thiamine 100 MG TAB PO (08:57)
--- NOTE | 2020-06-16 09:47 | W.PM.OP ---
Operative Note Operative Note DATE OF PROCEDURE: 06/15/20 POST-OP DIAGNOSIS: same PROCEDURE: 11 mm diameter short TFN HUMAN RELATIONS MANAGER: Dominique Steel ANESTHESIA: spinal ESTIMATED BLOOD LOSS: 20 PATHOLOGY: none sent Patient was transported to: PACU Patient's condition: stable Implants: 11 mm diameter short TFN
--- NOTE | 2020-06-16 09:48 | W.PM.PROGNOT ---
Date of Service Date of service: 06/16/20 Time of Service: 09:48 Assessment and Plan Assessment and plan (1) Intertrochanteric fracture of left femur: Status: Acute Assessment and plan: Assessment: Stable postop day #1 ORIF of intertrochanteric fracture left femur with a TFN. Plan: Mobilize per protocol with PT. Can be discharged when he is independent with transfers and ambulation. Subjective Subjective Patient reports: voiding w/o difficulty Interval history since last seen: He said he is having very little pain. Still has little tingling in his toes. He is tolerating regular diet quite well. Exam Narrative Exam Narrative: He got up with physical therapy yesterday walked about 5 feet with a walker. He has been sitting up on the bed to eat his breakfast this morning. He is afebrile and vital signs are stable. Hemoglobin this morning is 9 g. He has good active ankle motion today. Left thigh has mild swelling only. He has good circulation to the left foot. Slightly decreased subjective sensation to light touch on the toes. Objective Last Vital Signs Temp 36.8 C 06/16/20 08:42 Pulse 75 06/16/20 08:42 Resp 19 06/16/20 08:42 BP 145/69 H 06/16/20 08:42 Pulse Ox 92 06/16/20 08:42 Laboratory Results - last 24 hr 06/15/20 06/16/20 06/16/20 03:05 07:00 07:00 WBC 10.87 H RBC 2.72 L Hgb 9.0 L D Hct 27.3 L D MCV 100.4 H MCH 33.1 H MCHC 33.0 RDW 13.3 Plt Count 175 MPV 9.0 Immature Gran % 0.7 Neutrophils % 74.8 Lymphocytes % 12.5 Monocytes % 10.1 Eosinophils % 1.3 Basophils % 0.6 Nucleated RBC % 0 Absolute Neutrophils 8.13 H Absolute Lymphocytes 1.36 Absolute Monocytes 1.10 H Absolute Eosinophils 0.14 Absolute Basophils 0.07 Sodium 132 L Potassium 3.9 Chloride 100 Carbon Dioxide 26.0 Anion Gap 6.0 BUN 7 Creatinine 0.69 L Estimated GFR/1.73 m2 >= 60.00 Glucose 109 H Calcium 7.9 L Magnesium 1.8 COVID-19 PCR Cancelled Nasopharyn COVID-19 PCR Cancelled Ref Test Perform Site Cancelled
[2020-06-16] MEDS: Enoxaparin 30 MG/0.3 ML SYR SC (10:20)
--- NOTE | 2020-06-16 11:36 | W.PM.PROGNOT ---
Date of Service Date of service: 06/16/20 Time of Service: 11:36 Assessment and Plan Assessment and plan (1) Closed fracture of left hip: Status: Acute Assessment and plan: S/p ORIF L hip on 06/15/[address] Mcclendon. S/p removal of duque today - will do bladder scans. Pain is controlled. Encourage IS. Has a scheduled bowel regimen. Continue working with PT/OT. Qualifiers: Encounter type: initial encounter Qualified Code(s): S72.002A - Fracture of unspecified part of neck of left femur, initial encounter for closed fracture (2) Hyponatremia: Status: Acute Assessment and plan: Acute on chronic. It has improved with IVF. Will resume - the patient is still dehydrated. (3) Dehydration: Status: Acute Assessment and plan: As above (4) Hypotension: Status: Acute Assessment and plan: As above. Additionally, decrease dose of beta blockers (5) Alcohol use disorder: Status: Chronic Assessment and plan: Continue CIWA with prn ativan (not requiring). Continue vitamins/thiamine. (6) Alcoholic cirrhosis: Status: Chronic Assessment and plan: Carefully monitor for fluid overload (7) Macrocytic anemia: Status: Acute Assessment and plan: Check b12/folate levels as well as iron studies and hematest (8) DVT prophylaxis: Status: Acute Assessment and plan: Lovenox SC (9) Discharge planning issues: Status: Acute Assessment and plan: Full code Continues to require hospitalization. Will likely require rehab Subjective Subjective Interval history since last seen: Mr Cr POD 1 post ORIF L hip yesterday. States that his pain is well controlled (2/10). He does endorse more MILLS on exertion, worse than his normal. He has a productive cough chronically, and his sputum has not changed colors since he arrived here. BP 82/42 manually, but the patient does not feel dizzy. IVF were d/c'ed by orthopedics. Denies chest pain, nausea, vomiting. Exam Narrative Exam Narrative: General: Pleasant elderly male who is sitting in a chair, appears comfortable, A&Ox3, conversant without dyspnea/tachypnea, appears dehydrated HEENT: EOMI, Dry MM Heart: RRR, no m/r/g Lungs: quiet expiratory wheezing B, no crackles Abdomen: soft, nonteder, nondistended Extremities: in TEDS/SCDS. Objective Last Vital Signs Temp 36.8 C 06/16/20 08:42 Pulse 75 06/16/20 08:42 Resp 19 06/16/20 08:42 BP 145/69 H 06/16/20 08:42 Pulse Ox 92 06/16/20 08:42 Laboratory Results - last 24 hr 06/16/20 06/16/20 07:00 07:00 WBC 10.87 H RBC 2.72 L Hgb 9.0 L D Hct 27.3 L D MCV 100.4 H MCH 33.1 H MCHC 33.0 RDW 13.3 Plt Count 175 MPV 9.0 Immature Gran % 0.7 Neutrophils % 74.8 Lymphocytes % 12.5 Monocytes % 10.1 Eosinophils % 1.3 Basophils % 0.6 Nucleated RBC % 0 Absolute Neutrophils 8.13 H Absolute Lymphocytes 1.36 Absolute Monocytes 1.10 H Absolute Eosinophils 0.14 Absolute Basophils 0.07 Sodium 132 L Potassium 3.9 Chloride 100 Carbon Dioxide 26.0 Anion Gap 6.0 BUN 7 Creatinine 0.69 L Estimated GFR/1.73 m2 >= 60.00 Glucose 109 H Calcium 7.9 L Magnesium 1.8
[2020-06-16] MEDS: Normal Saline 250 ML IV (11:52)
[2020-06-16 12:01] VITALS: BP 82/42; PULSE 74; RESP 18; TEMP 36.6; O2SAT 94
[2020-06-16] MEDS: Normal Saline 1,000 ML 100 ML IV ×2 (12:57→20:30)
--- NOTE | 2020-06-16 12:59 | PT.INTREAT ---
PT Notes Visit Reasons: ACUTE FRACTURE LEFT HIP,HYPONATREMIA,CHRONIC ALCOH Inpatient Physical Therapy Treatment Note [facility] Date: 06/16/20 SUBJECTIVE: Severino states that he is doing ok. He denies pain. OBJECTIVE: [] BED MOBILITY/TRANSFERS Supine-sit: CGA Sit-stand: CGA Stand-sit: CGA GAIT Assistive Device: FWW Weight bearing: WBAT Assist: CGA Distance: 5'x3 Deviation:seated breaks required due to SOB THEREX: glut and quad sets and AP x 10 each. ASSESSMENT: tolerated session well. His SOB tends to hold him back with his ambulation. PLAN: continue to progress following PT POC. TREATMENT CODE/TIME: 30 min. [id number]
[2020-06-16 16:06] VITALS: BP 115/60; PULSE 73; RESP 17; TEMP 36.6; O2SAT 95
--- NOTE | 2020-06-16 16:49 | CMPROGNOTE_ITS ---
- If Service Date Differs Date of service: 06/16/20 Time of Service: 16:49 Care Management Progress Note S/O: Severino reports he is feeling ok today. He had hip surgery yesterday and declines pain medication today because he feels the pain is manageable without it. He worked with physical therapy again today and is reported to have tolerated the session well, except shortness of breath is interfering with his ability to ambulate. CM will continue to follow. A: Severino is a 74 year old male admitted to [facility] on 06/15/20 for left hip fracture, hyponatremia, and chronic alcohol use. P: Severino will likely require a short term SNF/rehab placement, per MD. Severino is agreeable to this, as he fears going home and being unable to care for himself. CM will continue to support patient and discharge planning needs.
[2020-06-16] MEDS: Carvedilol 6.25 MG TAB 3.125 MG PO (16:52)
[2020-06-16 19:30] VITALS: BP 124/69; PULSE 68; RESP 17; TEMP 36.6; O2SAT 97
[2020-06-17] VITALS (7 sets, daily range): BP systolic 117–134; BP diastolic 62–80; PULSE 70–94; RESP 17–19; TEMP 36.1–37.3; O2SAT 93–97
[2020-06-17] MEDS: Normal Saline 1,000 ML 100 ML IV (05:38)
[2020-06-17 07:24] LABS: Abs Immature Grans 0.08 10^3/uL (0.0-0.06); Absolute Basophil Count 0.04 10^3/uL (0.0-0.2); Absolute Eosinophil Count 0.19 10^3/uL (0.0-0.7); Absolute Lymphocyte Count 1.23 10^3/uL (1.2-3.4); Absolute Monocyte Count 1.11 10^3/uL (0.1-0.8); Absolute Neutrophil Count 7.24 10^3/uL (1.2-6.7); Basophils % 0.4; Eosinophils % 1.9; Immature Grans % 0.8; Lymphocytes % 12.4; MCH 33.3 pg (27.0-33.0); MCHC 33.3 % (32.0-36.0); MPV 9.1 fL (8.0-11.0); Monocytes % 11.2; Neutrophils % 73.3; Nucleated RBC 0 %; Platelet Count 187 10^3/uL (130-400); RDW 13.2 % (11.8-14.1); RDW-SD 48.2 fL; WBC 9.89 10^3/uL (4.4-10.8)
[2020-06-17 07:50] LABS: Anion Gap 4.6 mmol/L (3-11); BUN 7 mg/dL (7-18); CO2 26.4 mmol/L (21.0-32.0); CREATININE 0.51 mg/dL (0.70-1.30); Calcium 7.5 mg/dL (8.5-10.1); Chloride 98 mmol/L (98-107); Ferritin 117 ng/mL (26-388); Glucose 101 mg/dL (74-106); Magnesium 1.6 mg/dL (1.8-2.4); Sodium 129 mmol/L (136-145)
[2020-06-17] MEDS: Atorvastatin 40 MG TAB PO (07:53)
[2020-06-17] MEDS: Pantoprazole 40 MG TABCR PO (07:53)
[2020-06-17] MEDS: Acetaminophen 325 MG TAB 650 MG PO (07:53)
[2020-06-17] MEDS: Thiamine 100 MG TAB PO (07:53)
[2020-06-17] MEDS: Docusate Sodium 100 MG CAP PO ×2 (07:53→20:46)
[2020-06-17] MEDS: Multivitamin TAB 1 TAB PO (07:53)
[2020-06-17] MEDS: Folic Acid 1 MG TAB PO (07:53)
[2020-06-17] MEDS: Carvedilol 3.125 MG TAB PO ×2 (07:54→17:13)
[2020-06-17 08:30] LABS: Vitamin B12 402 pg/mL (193-986)
[2020-06-17 08:31] LABS: Folate > 20.0 ng/mL (8.6-20.0)
--- NOTE | 2020-06-17 08:55 | PDOC.CMPRO ---
Care Management Progress Note S/O: Severino continues to work with physical therapy which he is tolerating well, though shortness of breath is interfering with his ability to ambulate, MD to evaluate. Anticipate MD will order Palliative consult as well. CM discussed SNF stay; referrals faxed to the [facility] and [facility]; awaiting determination. CM continues to follow. Dr. Oakley arrived to see David this evening; code status to be discussed. David was offered beds at both facilities; anticipate he will discharge as soon as tomorrow. Severino reported he really enjoys being home and likes MOW. He enjoys leaving the house late morning, and running errands and riding around town for about 45 minutes. In the evening, he also goes for a ride for about an hour on backroads. He reports being fearful of ev COVID as he is the highest risk because of his history of smoking. 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 He reports his preference would be to transition to [facility], anticipate he will transport via [employer] Van. A: Severino is a 74 year old male admitted to [facility] on 06/15/20 for left hip fracture, hyponatremia, and chronic alcohol use. P: Severino will require a short term SNF/rehab placement, referrals faxed to the [facility] and [facility]; awaiting patient determination, though he reported [facility] would be his first choice due to location. CM will continue to support patient and discharge planning needs.
[2020-06-17 08:58] LABS: SARS-CoV-2 RNA Not Detected (NotDetected); SARS-CoV-2 RNA Source Nasopharynx
[2020-06-17] MEDS: Enoxaparin 30 MG/0.3 ML SYR SC (09:08)
[2020-06-17] MEDS: MAGNESIUM SULFATE 2 GM/50 ML BAG IVPB (09:08)
[2020-06-17] MEDS: Cyanocobalamin 500 MCG TAB 1000 MCG PO (12:01)
--- NOTE | 2020-06-17 12:52 | W.NUTRFU ---
Date of service: 06/17/20 Time of Service: 12:52 Nutritional Follow up NOTE: 74 year old male admitted with closed hip fracture with dehydration, hypotension with hx of dysphagia, barretts esophagus, alcoholic cirrohosis and anemia. BMI wnl and stable > 1 year. Following regular meal plan with adequate intake. At risk for nutritional decline. Will continue to follow and support for optimal intake and weight maintenance. Time Spent in Nutritional Counseling and Treatment: 0 time spent face to face
--- NOTE | 2020-06-17 13:19 | W.PM.PROGNOT ---
Date of Service Date of service: 06/17/20 Time of Service: 13:19 Assessment and Plan Assessment and plan (1) Closed fracture of left hip: Status: Acute Assessment and plan: S/p ORIF L hip on 06/15/[address] Mcclendon. continue routine post operative care Pain is controlled. Encourage IS. Has a scheduled bowel regimen. Continue working with PT/OT. Qualifiers: Encounter type: initial encounter Qualified Code(s): S72.002A - Fracture of unspecified part of neck of left femur, initial encounter for closed fracture (2) Chronic obstructive lung disease: Status: Chronic Assessment and plan: will add symbicort twice daily. continue incentive spirometer, no steroids indicated at this time. Qualifiers: COPD type: unspecified COPD Qualified Code(s): J44.9 - Chronic obstructive pulmonary disease, unspecified (3) Hyponatremia: Status: Acute Assessment and plan: Acute on chronic. It has improved with IVF. Will resume - the patient is still dehydrated. (4) Dehydration: Status: Resolved Assessment and plan: As above (5) Hypotension: Status: Resolved Assessment and plan: improved on decrease dose of beta blockers, continue to monitor and adjust as needed. (6) Alcohol use disorder: Status: Chronic Assessment and plan: Continue CIWA with prn ativan (not requiring). Continue vitamins/thiamine. (7) Alcoholic cirrhosis: Status: Chronic Assessment and plan: Carefully monitor for fluid overload (8) DVT prophylaxis: Status: Acute Assessment and plan: Lovenox SC (9) Discharge planning issues: Status: Acute Assessment and plan: Full code Continues to require hospitalization. Will likely require rehab discussed with Dr Ramos who is in agreement Subjective Subjective Patient reports: no new complaints, feels better, pain is less, tolerating liquids well, tolerating a regular diet, voiding w/o difficulty, bowel movement and afebrile Interval history since last seen: doing well post operatively, working with physical therapy and progressive well. noted overnight to be mildly dyspneic with activity. no coughing or sputum, no chest pain, no shortness of breath at rest. Exam Narrative Exam Narrative: General: Pleasant elderly male who is sitting in a chair, appears comfortable, A&Ox3, conversant without dyspnea/tachypnea HEENT: EOMI, normocephalic atraumatic Heart: RRR, well perfused, good pulses, faint operative leg but warm with good sensation Lungs: quiet expiratory wheezing B, no crackles Abdomen: soft, nonteder, nondistended Extremities: in TEDS/SCDS. swelling to left upper leg, old bruising extensive to thigh and groin, surgical dressings are intact with no surround erythema or drainage. Objective Last Vital Signs Temp 36.8 C 06/17/20 11:54 Pulse 82 06/17/20 11:54 Resp 19 06/17/20 11:54 BP 125/80 06/17/20 11:54 Pulse Ox 93 06/17/20 11:54 Laboratory Results - last 24 hr 06/15/20 06/17/20 06/17/20 03:05 06:30 06:30 WBC 9.89 RBC 2.40 L Hgb 8.0 L Hct 24.0 L MCV 100.0 H MCH 33.3 H MCHC 33.3 RDW 13.2 Plt Count 187 MPV 9.1 Immature Gran % 0.8 Neutrophils % 73.3 Lymphocytes % 12.4 Monocytes % 11.2 Eosinophils % 1.9 Basophils % 0.4 Nucleated RBC % 0 Absolute Neutrophils 7.24 H Absolute Lymphocytes 1.23 Absolute Monocytes 1.11 H Absolute Eosinophils 0.19 Absolute Basophils 0.04 Sodium 129 L Potassium 4.0 Chloride 98 Carbon Dioxide 26.4 Anion Gap 4.6 BUN 7 Creatinine 0.51 L Estimated GFR/1.73 m2 >= 60.00 Glucose 101 Calcium 7.5 L Magnesium 1.6 L Ferritin 117 Vitamin B12 Folate SARS-CoV-2 Source Nasopharynx SARS-CoV-2 (PCR) Not detected 06/17/20 06:30 WBC RBC Hgb Hct MCV MCH MCHC RDW Plt Count MPV Immature Gran % Neutrophils % Lymphocytes % Monocytes % Eosinophils % Basophils % Nucleated RBC % Absolute Neutrophils Absolute Lymphocytes Absolute Monocytes Absolute Eosinophils Absolute Basophils Sodium Potassium Chloride Carbon Dioxide Anion Gap BUN Creatinine Estimated GFR/1.73 m2 Glucose Calcium Magnesium Ferritin Vitamin B12 402 Folate > 20.0 H SARS-CoV-2 Source SARS-CoV-2 (PCR)
[2020-06-17] MEDS: Budesonide/Formoterol 160/4.5 6 GM 60 PUFF INH IH ×2 (13:46→20:46)
--- NOTE | 2020-06-17 15:44 | PT.INTREAT ---
Date of service: 06/17/20 Time of Service: 11:30 PT Notes Visit Reasons: ACUTE FRACTURE LEFT HIP,HYPONATREMIA,CHRONIC ALCOH Inpatient Physical Therapy Treatment Note [facility] Date: 06/17/2020 PRECAUTIONS: Fall, WBAT L SUBJECTIVE: Severino is pleasant and agreeable to participating in PT. He is impressed with how well he was able to move today. He reports that he has no DME at home, I'm starting from scratch. OBJECTIVE: PAIN: Patient complained of L hip soreness with ther ex and gait training BED MOBILITY/TRANSFERS Supine-sit: Min A with HOB at 20 degrees Sit-stand: CGA in a.m.; SBA in p.m. Stand-sit: CGA in a.m.; SBA in p.m. Bed-Chair: CGA in a.m.; SBA in p.m. Chair-bed: CGA in a.m.; SBA in p.m. GAIT Assistive Device: FWW Weight bearing: WBAT L Assist: CGA in a.m.; SBA in p.m. Distance: 50' in a.m.; 30' in p.m. Deviation: Increased SOB, increased soreness in L hip, step to gait pattern in a.m.; increased SOB, step through gait pattern, refused instruction for continuous FWW advancement THEREX: Patient completed a lower extremity strengthening and stabilization program, as per flow sheet. He demonstrates significant quad weakness, although did not require assist for exercise completion. ASSESSMENT: Patient tolerated session with complaints of increased L hip soreness with gait training and ther ex completion. She was able to tolerate a progression in gait distance with FWW support and SBA. Patient would benefit from continued LE strengthening as well as gait and transfer training for improved mobility and activity tolerance. PLAN: Continue with LE strengthening and gait and transfer training for improved mobility and activity tolerance. TREATMENT CODE/TIME: Session 1: 30 minutes; [id number], [id number] Session 2: 25 minutes; [id number], [id number]
--- NOTE | 2020-06-17 16:08 | CHAPLAIN ---
Severino was sitting up in a chair when I visited. He easily engaged in conversation and told me about falling at home and having hip surgery on Wednesday. He said he thinks he'll be here for another five to seven days. He's in touch with this daughter in [place], and son, daughter in law and grandchildren in [place]. He said his exwife's brother, his and son, used to live in Severino's neighborhood, but recently moved to [facility] so he doesn't have any family locally to take care of him. He said he expects Home Health will be involved. Severino sees to be very comfortable being here.
--- NOTE | 2020-06-17 17:24 | PGE_ITS ---
Date of Service Date of service: 06/17/20 Time of Service: 17:24 Assessment and Plan Assessment and plan (1) Intertrochanteric fracture of left femur: Status: Acute Assessment and plan: Assessment: He is progressing well with his mobilization following ORIF of an intertrochanteric fracture of his left femur 2 days ago. He will need more rehab before he is able to safely return home. [facility] facility placement is planned as soon as a bed becomes available. Plan: Continue mobilize with PT. Once he goes to group home facility should be allowed to shower and get his dressings wet. Should have a follow-up with me within 2 weeks of his discharge. Subjective Subjective Interval history since last seen: He feels he is making progress every day. He is concerned about scrotal and inner thigh bruising on the left. Plans are being finalized for discharge to a group home facility for further rehab. He is not having much pain at all. Exam Narrative Exam Narrative: He has a lot of swelling and bruising of his left scrotum and penis. He also has swelling and bruising of his left inner thigh. Gentle passive flexion and rotation of the left hip is nonirritable. He walks 50 feet the morning with PT and 30 feet in the afternoon. The main limitation to his shortness of breath. He has no shortness of breath at rest however. Neurovascular examination left foot is totally normal. Objective Last Vital Signs Temp 36.1 C L 06/17/20 15:25 Pulse 78 06/17/20 15:25 Resp 18 06/17/20 15:25 BP 117/62 06/17/20 15:25 Pulse Ox 95 06/17/20 15:25 Laboratory Results - last 24 hr 06/15/20 06/17/20 06/17/20 03:05 06:30 06:30 WBC 9.89 RBC 2.40 L Hgb 8.0 L Hct 24.0 L MCV 100.0 H MCH 33.3 H MCHC 33.3 RDW 13.2 Plt Count 187 MPV 9.1 Immature Gran % 0.8 Neutrophils % 73.3 Lymphocytes % 12.4 Monocytes % 11.2 Eosinophils % 1.9 Basophils % 0.4 Nucleated RBC % 0 Absolute Neutrophils 7.24 H Absolute Lymphocytes 1.23 Absolute Monocytes 1.11 H Absolute Eosinophils 0.19 Absolute Basophils 0.04 Sodium 129 L Potassium 4.0 Chloride 98 Carbon Dioxide 26.4 Anion Gap 4.6 BUN 7 Creatinine 0.51 L Estimated GFR/1.73 m2 >= 60.00 Glucose 101 Calcium 7.5 L Magnesium 1.6 L Ferritin 117 Vitamin B12 Folate SARS-CoV-2 Source Nasopharynx SARS-CoV-2 (PCR) Not detected 06/17/20 06:30 WBC RBC Hgb Hct MCV MCH MCHC RDW Plt Count MPV Immature Gran % Neutrophils % Lymphocytes % Monocytes % Eosinophils % Basophils % Nucleated RBC % Absolute Neutrophils Absolute Lymphocytes Absolute Monocytes Absolute Eosinophils Absolute Basophils Sodium Potassium Chloride Carbon Dioxide Anion Gap BUN Creatinine Estimated GFR/1.73 m2 Glucose Calcium Magnesium Ferritin Vitamin B12 402 Folate > 20.0 H SARS-CoV-2 Source SARS-CoV-2 (PCR)
[2020-06-17] MEDS: HYDROcodone 5/Acetaminophen 325 TAB PO (18:55)
--- NOTE | 2020-06-17 20:09 | W.PALLCONSUL ---
Date of service: 06/17/20 Time of Service: 18:10 History of Present Illness History of Present Illness Chief Complaint: left hip fracture Narrative: I am meeting Severino in the hospital. I was consulted to discuss CODE STATUS. 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 He has a history of alcoholism, chronic lung disease, Smalls's esophagus, hernia, hypertension, hyperlipidemia alcoholic cirrhosis and most recently a left hip fracture I did ask him if he knew me. He remembered my name is Lila and used to live near the [employer]. He also remembered but was a little hazy on the fact that he knew I was going to come in to see him did talk to him specifically about CODE STATUS. He was able to tell me about his hip and the recent transfusions he has had and what these met. He also stated that his daughter was his DPOA. He wondered about having his son also being a DPOA but there was some concern that it would be difficult for him to get here from [place] because he had a family. He also stated that his daughter and son get along great and that there will be no problem with him talking about end-of-life care for him. 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 Care management states that he has been accepted by both health and rehab and the [facility] for his rehab from his left hip fracture. Things have been going fairly well for him. He states he is helping to ambulate better and get stronger. He also did have capacity to understand implications of different decisions. We did discuss the CO LST form. He was quite clear that he did not want to be resuscitated. He did not want to be put on machines for any length of time. And he most importantly did not want to leave this decision to his children which could be quite the burden. He chose to not have resuscitation or intubation. He still would want to transfer to the hospital if he was sick. He would like antibiotics long-term. He does not want a tube feeding but would be okay with IV hydration. We filled out the COLST form together I asked him about his choice of his daughter and D POA. He really thought that he should have both daughter and son. He felt comfortable that his daughter and son would rather than come to a loving decision if necessary. We did complete the CO LST form. He received the original. Copy went into the EMR into his PCP. Thank you very much for this consult. 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 Geoffrey Dumont Alcohol use disorder Smalls's esophagus 10/17/2018 EGD ([facility]): esophageal mucosal changes classified as Smlals's stage C0-M1 per [place] criteria (also showed resolution of esophageal varices on carvedilol 6.25 mg BID) Basal cell carcinoma (BCC) Face Bilateral lower extremity edema (01/14/18) Related to cirrhosis BPH w urinary obs/LUTS (03/10/13) Al hemangioma (02/18/17) Dr. Geoffrey Dumont Chronic obstructive lung disease (03/15/13) 01/2007 PFTs: FEV1 90%; 06/2019 PFTs: FEV1/FVC 56% --> severe obstructive airways disease with no bronchodilator response Dysphagia 10/17/2018 EGD ([facility]): Smalls's & interval resolution of esophageal varices seen on previous EGD (see Smalls's dx comments for details); 06/06/2019 Barium Swallow: some dysmotility & aspiration --> referred to Speech Therapy 04/12/20 [facility] Esophageal Manometry; 05/17/2020 EGD: Grade I esophageal varices, duodenal erosions w/o bleeding, no obstructive cause for dysphagia Esophageal varices 06/22/2017 EGD (Dr. Cheney): grade 1 w/ stigmata of bleeding; 10/17/2018 EGD ([facility]): no evidence of esophageal or gastric varices on carvedilol 6.25 mg BID Family history of malignant melanoma ov note dated 05/10/20-Dr. Hale Gastroesophageal reflux disease (03/15/13) surgery 08/1990 GERD (gastroesophageal reflux disease) Hepatic cirrhosis (01/14/18) [facility] GI 02/24/2018 Fibroscan: stage 4 liver fibrosis, consistent with cirrhosis with possible portal HTN 06/22/2018 EGD (Dr. 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 Hale Derm Sigmoid diverticulosis (02/01/18) 02/01/2018 colonoscopy Squamous cell carcinoma Face Tobacco use disorder 1.5 PPD Surgical History Colonoscopy - MAC (02/01/18) H/O colonoscopy 05/17/20 at [facility] - no need for further to have any further colonscopy per report H/O endoscopy 05/17/20 [facility] History of esophagogastroduodenoscopy (EGD) (06/22/18) dr cheney, grade I esophageal varices Left shoulder (09/24/07) Marci Fundoplication (03/24/85) Prostatectomy () Repair of incision from Marci fundoplication (03/24/87) right shoulder (03/24/00) Family History Mother , resp failure No problems noted. Father , prostate [place] Personal history of malignant neoplasm prostate Malignant melanoma Social History Smoking/Tobacco Use Status: Current every day Tobacco Type: cigarettes Smoking risk assessment performed?: Yes Alcohol Intake: current Alcohol Intake frequency: 3 or more drinks per day Alcohol type: beer and hard liquor Drug use: Never Substance use type: does not use Caregiver/Support person: No Number of Children: 2 Communication Needs: None current occupation: Retired Current gender identity: male What type of physical activity do you participate in: none Seatbelt use: always Water heater temp set <120 deg: Yes Working smoke detector in home: Yes Fire extinguisher in home: Yes Carbon monox detector in home: Yes Firearms in home: No Do you feel safe at home: Yes Do you feel safe in your relationship?: Yes Exam Narrative Exam Narrative: Severino was very disheveled. At one point he had his gown completely of. He has ecchymosis around the left hip. His heart was regular. Lungs difficult to really ascertain but I did not hear any wheezes or rales. He seemed earnest and forthright. Results Last Vital Signs Temp 97.5 F L 06/17/20 19:15 Pulse 82 06/17/20 19:15 Resp 19 06/17/20 19:15 BP 119/68 06/17/20 19:15 Pulse Ox 97 06/17/20 19:15 Labs Result diagrams: 06/17/20 06:30 06/17/20 06:30 Labs: Laboratory Results - last 24 hr 06/15/20 06/17/20 06/17/20 03:05 06:30 06:30 WBC 9.89 RBC 2.40 L Hgb 8.0 L Hct 24.0 L MCV 100.0 H MCH 33.3 H MCHC 33.3 RDW 13.2 Plt Count 187 MPV 9.1 Immature Gran % 0.8 Neutrophils % 73.3 Lymphocytes % 12.4 Monocytes % 11.2 Eosinophils % 1.9 Basophils % 0.4 Nucleated RBC % 0 Absolute Neutrophils 7.24 H Absolute Lymphocytes 1.23 Absolute Monocytes 1.11 H Absolute Eosinophils 0.19 Absolute Basophils 0.04 Sodium 129 L Potassium 4.0 Chloride 98 Carbon Dioxide 26.4 Anion Gap 4.6 BUN 7 Creatinine 0.51 L Estimated GFR/1.73 m2 >= 60.00 Glucose 101 Calcium 7.5 L Magnesium 1.6 L Ferritin 117 Vitamin B12 Folate SARS-CoV-2 Source Nasopharynx SARS-CoV-2 (PCR) Not detected 06/17/20 06:30 WBC RBC Hgb Hct MCV MCH MCHC RDW Plt Count MPV Immature Gran % Neutrophils % Lymphocytes % Monocytes % Eosinophils % Basophils % Nucleated RBC % Absolute Neutrophils Absolute Lymphocytes Absolute Monocytes Absolute Eosinophils Absolute Basophils Sodium Potassium Chloride Carbon Dioxide Anion Gap BUN Creatinine Estimated GFR/1.73 m2 Glucose Calcium Magnesium Ferritin Vitamin B12 402 Folate > 20.0 H SARS-CoV-2 Source SARS-CoV-2 (PCR)
[2020-06-18] MEDS: Acetaminophen 325 MG TAB 650 MG PO
[2020-06-18] MEDS: HYDROcodone 5/Acetaminophen 325 TAB PO
[2020-06-18 03:25] VITALS: BP 159/77; PULSE 84; RESP 18; TEMP 36.6; O2SAT 95
[2020-06-18 04:00] VITALS: BP 120/65
[2020-06-18 07:22] LABS: Anion Gap 4.3 mmol/L (3-11); BUN 6 mg/dL (7-18); CO2 26.7 mmol/L (21.0-32.0); CREATININE 0.58 mg/dL (0.70-1.30); Calcium 7.9 mg/dL (8.5-10.1); Chloride 98 mmol/L (98-107); Glucose 95 mg/dL (74-106); Magnesium 1.9 mg/dL (1.8-2.4); Potassium 3.9 mmol/L (3.5-5.1); Sodium 129 mmol/L (136-145)
[2020-06-18 07:35] VITALS: BP 143/80; PULSE 72; RESP 18; TEMP 36.4; O2SAT 95
[2020-06-18] MEDS: Budesonide/Formoterol 160/4.5 6 GM 60 PUFF INH IH (07:50)
[2020-06-18] MEDS: Cyanocobalamin 500 MCG TAB 1000 MCG PO (09:22)
[2020-06-18] MEDS: Folic Acid 1 MG TAB PO (09:23)
[2020-06-18] MEDS: Thiamine 100 MG TAB PO (09:23)
[2020-06-18] MEDS: Pantoprazole 40 MG TABCR PO (09:23)
[2020-06-18] MEDS: Docusate Sodium 100 MG CAP PO (09:23)
[2020-06-18] MEDS: Multivitamin TAB 1 TAB PO (09:23)
[2020-06-18] MEDS: Atorvastatin 40 MG TAB PO (09:23)
[2020-06-18] MEDS: Enoxaparin 30 MG/0.3 ML SYR SC (09:24)
[2020-06-18] MEDS: Carvedilol 3.125 MG TAB PO (09:24)
--- NOTE | 2020-06-18 10:08 | DSE_ITS ---
Date of service: 06/18/20 Time of Service: 10:09 DS: Diagnosis Discharge Diagnosis (1) Intertrochanteric fracture of left femur: Status: Acute (2) Alcoholic cirrhosis: Status: Chronic (3) Smalls's esophagus: Status: Chronic (4) Esophageal varices: Status: Resolved (5) Restless leg syndrome: Status: Chronic (6) Alcohol use disorder: Status: Chronic (7) Palliative care patient: Status: Acute (8) Physician orders for life-sustaining treatment (POLST) form indicates patient wish for [id number] status: Status: Acute Discharge Plan Disposition Patient Disposition: SNF (LEVEL 1) [facility] Condition: Improving Discharge Details Reason For Visit: ACUTE FRACTURE LEFT HIP,HYPONATREMIA,CHRONIC ALCOH Admit Date/Time: 06/15/20 03:32 Admit Provider: Hamzah Bahena Attending Provider: Hamzah Bahena Primary Care Provider: Stephie Jones [facility] Hospital Course: This is a 74 year old male patient with history of alcoholism, COPD, hyponatremia who sustained a fractured left hip from a mechanical fall. He was medically cleared for surgery and underwent ORIF of his left femur on 06/15/[address] Mcclendon. Postoperative course involved some mild dehydration for which he received IV hydration and adjustments in his blood pressure medications (lisinopril and lasix placed on hold and coreg dose decreased), some mild SOB with activity no associated chest pain or cough, started on symbicort with resolution of his symptoms, replacement of magnesium, otherwise unremarkable. His blood pressure stabilized and remained controlled, day of discharge 118/60. Will defer when to resume lasix and lisinopril to primary care provider. He did not have any symptoms of alcohol withdrawal, his pain was well managed. He was eating and drinking and bowels and bladder functioning well. He remained afebrile and hemodynamically stable. He was re-ambulated and working with physical therapy and gradually progressing. He remains too deconditioned to safely return home so referrals placed for ongoing inpatient swing level care. covid 19 testing negative. On admission he was found to have a stage 1 pressure ulcer to lumbar/sacral area that was evaluated by wound care with recommendations for routine skin care and mepilex with border. recommendations: Cleanse with Normal saline and gauze, then Pat dry. Apply Mepilex sacral to the wound bed for protection. Change weekly or PRN. Nursing to assess placement every shift. also underwent a palliative care consult during hospitalization, seen by Dr Oakley, who discussed the COLST from with him and he was very clear, per her note that he did not want to be resuscitated. The morning of discharge he rescinded his DNR/DNI and wishes to be a full code. He is being discharged to [facility] by wheelchair van Discharge plan discussed with Dr Ramos who is in agreement. Home Meds and New Rx's Prescriptions: New budesonide-formoterol [Symbicort] 160-4.5 mcg/actuation Hfa Aerosol Inhaler 2 puff inhalation BID Qty: 10.2 RF: 0 acetaminophen [Tylenol] 325 mg Tablet 650 mg PO Q4H PRN PRNQty: 0 RF: 0 enoxaparin [Lovenox] 30 mg/0.3 mL Syringe 30 mg subcut Q24H Qty: 30 RF: 0 thiamine mononitrate (vit B1) [Vitamin B-1 (mononitrate)] 100 mg Tablet 100 mg PO DAILY Qty: 0 RF: 0 polyethylene glycol 3350 17 gram Powder In Packet 17 g PO DAILY PRN PRN (Reason: Constipation) Qty: 0 RF: 0 pantoprazole 40 mg Tablet,Delayed Release (Dr/Ec) 40 mg PO DAILY@0730 Qty: 30 RF: 0 docusate sodium [Colace] 100 mg Capsule 100 mg PO TID Qty: 0 RF: 0 cyanocobalamin (vitamin B-12) [Vitamin B-12] 500 mcg Tablet 1,000 mcg PO DAILY Qty: 0 RF: 0 Continued atorvastatin 40 mg tablet 40 mg PO DAILY Qty: 90 RF: 3 Changed carvedilol 6.25 mg tablet 3.125 mg PO BID Qty: 180 RF: 3 Discontinued lisinopril 20 mg tablet 20 mg PO DAILY Qty: 90 RF: 3 furosemide [Lasix] 20 mg tablet 20 mg PO QAM Qty: 90 RF: 0 No Action Metamucil 660 GM powder 1 - 2 tbs PO DAILY RF: 0 Discharge Instructions Instructions: ORIF of Hip Fracture (DC) Additional Instructions: Continue mobilize with PT. At residential facility will be allowed to shower and get his dressings wet. Follow-up appointment with Dr Mcclendon within 2 weeks of his discharge. DVT prophylaxis for 30 days or as directed by orthopedics Sacral pressure wound care instructions: Cleanse area with Normal saline and gauze, then Pat dry. Apply Mepilex sacral border to the wound bed for protection. Change weekly or PRN. Nursing to assess placement every shift. Stand Alone Forms: Nursing Discharge Form Referrals: Zeferino Mcclendon MD [ [facility] ST[facility]FF PHYSICIAN] - ([facility] needs to call to make an appt in two weeks with Dr. Mcclendon) Activity:: Activity as Tolerated Equipment/Supplies:: Walker Diet:: As Tolerated Discharge Orders Discharge Orders: Discharge Order (Routine); Ordered 06/18/20 Ordered By: Spring Lopez Discharge Data Discharge Date/Time-TO BE ENTERED AT DEPARTURE: 06/18/20 13:09 DS: Summary Status at Discharge Functional status at discharge: uses cane/walker Overall status at discharge: patient is not back to baseline Mental Status: mental status grossly normal Speech and Movement: speech and movement normal Mood: congruent mood Affect: normal affect Exam Narrative Exam Narrative: General: Pleasant elderly male who is sitting in a chair, appears comfortable, A&Ox3, conversant without dyspnea/tachypnea HEENT: EOMI, normocephalic atraumatic Heart: RRR, well perfused, good pulses, faint operative leg but warm with good sensation Lungs: quiet expiratory wheezing B, no crackles Abdomen: soft, nonteder, nondistended Extremities: in TEDS/SCDS. swelling to left upper leg, old bruising extensive to thigh and groin, surgical dressings are intact with no surround erythema or drainage. Psych Mental Status: mental status grossly normal Speech and Movement: speech and movement normal Mood: congruent mood Affect: normal affect DS: Data Vitals/I&O Vitals and I&O: Vital Signs Temperature 36.4 C L 06/18/20 07:35 Temperature Source Tympanic 06/18/20 07:35 Pulse 72 06/18/20 07:35 Pulse Rhythm Irregular 06/17/20 08:22 Respiratory Rate 18 06/18/20 07:35 Respiratory Effort Non-Labored 06/17/20 08:22 Respiratory Depth Normal 06/17/20 08:22 Respiratory Pattern Normal 06/17/20 08:22 Blood Pressure 143/80 H 06/18/20 07:35 Blood Pressure Mean 79 06/15/20 04:00 Blood Pressure Position Supine 06/15/20 01:33 Pulse Oximetry 95 06/18/20 07:35 Oxygen Delivery Method Room Air 06/18/20 07:35 Oxygen Flow Rate 0 06/18/20 07:35 Pain Level 0 06/18/20 07:35 Comment 06/18/20 04:00 Intake & Output 06/17/20 06/17/20 06/18/20 11:59 23:59 11:59 Intake Total 1916.666 / 2406.666 490 / 2406.666 480 / 480 Output Total 847 / 1372 525 / 1372 Balance 1069.666 / 1034.666 -35 / 1034.666 480 / 480 Weight 56.8 kg 57.9 kg Intake: IV 1426.666 / 1426.666 Oral 490 / 980 490 / 980 480 / 480 Output: Urine 847 / 1372 525 / 1372 Other: Urine Color Yellow Pale Urine Appearance Clear Clear Urine Odor Normal Normal Stool Size Large Stool Characteristics Soft Brown Voiding Methods Urinal Urinal Data Completed and Pending Labs on day of discharge: Labs from last 24 hours 06/18/20 06:35 Sodium 129 L Potassium 3.9 Chloride 98 Carbon Dioxide 26.7 Anion Gap 4.3 BUN 6 L Creatinine 0.58 L Estimated GFR/1.73 m2 >= 60.00 Glucose 95 Calcium 7.9 L Magnesium 1.9 PFSH Medical History 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 Geoffrey Dumont Alcohol use disorder Smalls's esophagus 10/17/2018 [place] [place] esophageal mucosal changes classified as Smalls's stage C0-M1 per [place] criteria (also showed resolution of esophageal varices on carvedilol 6.25 mg BID) Basal cell carcinoma (BCC) Face Bilateral lower extremity edema (01/14/18) Related to cirrhosis BPH w urinary obs/LUTS (03/10/13) Al hemangioma (02/18/17) Dr. Geoffrey Dumont Chronic obstructive lung disease (03/15/13) 01/2007 PFTs: FEV1 90%; 06/2019 PFTs: FEV1/FVC 56% --> severe obstructive airways disease with no bronchodilator response Dysphagia 10/17/2018 [place] [place] Smalls's & interval resolution of esophageal varices seen on previous EGD (see Smalls's dx comments for details); 06/06/2019 Barium Swallow: some dysmotility & aspiration --> referred to Speech Therapy 04/12/20 [facility] [place]ophageal Manometry; 05/17/2020 EGD: Grade I esophageal varices, duodenal erosions w/o bleeding, no obstructive cause for dysphagia Esophageal varices 06/22/2017 EGD (Dr. Hoang): grade 1 w/ stigmata of bleeding; 10/17/2018 [place] [place] no evidence of esophageal or gastric varices on carvedilol 6.25 mg BID Family history of malignant melanoma ov note dated 05/10/20-Dr. Hale Gastroesophageal reflux disease (03/15/13) HH surgery 08/1990 GERD (gastroesophageal reflux disease) Hepatic cirrhosis (01/14/18) [facility] [place]/24/2018 Fibroscan: stage 4 liver fibrosis, consistent with cirrhosis with possible portal HTN 06/22/2018 EGD (Dr. 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 Hale Derm Sigmoid diverticulosis (02/01/18) 02/01/2018 colonoscopy Squamous cell carcinoma Face Tobacco use disorder 1.5 PPD Surgical History Colonoscopy - MAC (02/01/18) [place]17[place] [facility] [place] no need for further to have any further colonscopy per report H/O endoscopy 05/17/20 [facility] [place] History of esophagogastroduodenoscopy (EGD) (06/22/18) dr hoang, grade I esophageal varices Left shoulder (09/24/07) Marci Fundoplication (03/24/85) Prostatectomy (~05/2007) Repair of incision from Marci fundoplication (03/24/87) right shoulder (03/24/00) Family History Mother , resp failure No problems noted. Father , prostate CA Personal history of malignant neoplasm prostate Malignant melanoma Social History Smoking/Tobacco Use Status: Current every day Tobacco Type: cigarettes Smoking risk assessment performed?: Yes Alcohol Intake: current Alcohol Intake frequency: 3 or more drinks per day Alcohol type: beer and hard liquor Drug use: Never Substance use type: does not use Caregiver/Support person: No Number of Children: 2 Communication Needs: None current occupation: Retired Current gender identity: male What type of physical activity do you participate in: none Seatbelt use: always Water heater temp set <120 deg: Yes Working smoke detector in home: Yes Fire extinguisher in home: Yes Carbon monox detector in home: Yes Firearms in home: No Do you feel safe at home: Yes Do you feel safe in your relationship?: Yes
--- NOTE | 2020-06-18 11:12 | PDOC.CMDIS ---
LACE Index Scoring Tool - Questions: Length of Stay (in days): 3 Acuity (Admit via E.D.?): Yes Comorbidities: Chronic Pulmonary Disease, Any Tumor, Liver or Renal Disease E.D. Visits: 1 - Answers: Total Score: 12 Risk of Readmission: High Risk Care Management Discharge Reason for Hospitalization: Acute fracture of left hip, hyponatremia, chronic alcohol use. Discharge Plan: Severino will discharge to [facility] for short term SNF/rehab placement prior to returning home. He will transport via W/C van provided by the facility. Patient/Family Education Needs: Review discharge instructions, discuss Ask Me Three. Services Needed at Discharge: Care Home Facility ([facility]), Transportation (W/C VAN)
[2020-06-18 11:29] VITALS: BP 118/60; PULSE 91; RESP 17; TEMP 36.5; O2SAT 94
--- NOTE | 2020-06-18 13:00 | PT.INTREAT ---
Date of service: 06/18/20 Time of Service: 09:00 PT Notes Visit Reasons: ACUTE FRACTURE LEFT HIP,HYPONATREMIA,CHRONIC ALCOH Inpatient Physical Therapy Treatment Note [facility] Date: 06/18/2020 PRECAUTIONS:Fall, WBAT L SUBJECTIVE: Severino states that he feels he overdid it yesterday in PT, and he paid for it last night. He is pleasant and agreeable to participating in PT this morning. OBJECTIVE: PAIN: Patient c/o L hip soreness with ther ex and gait training BED MOBILITY/TRANSFERS Sit-stand: SBA Stand-sit: SBA Bed-Chair: SBA Chair-bed: SBA GAIT Assistive Device: FWW Weight bearing: WBAT L Assist: CGA-SBA Distance: 40' Deviation: Increased SOB, step-through gait pattern, increased fatigue THEREX: Patient was instructed in a LE strengthening program, in a seated position, as per flow sheet. He continues to demonstrate significant L quad weakness. ASSESSMENT: Patient tolerated session with complaint of increased fatigue and SOB with activity. He would benefit from continued gait training and strengthening for improved mobility, and progression toward baseline level of function. PLAN: Continue with gait training and strengthening in SNF setting. TREATMENT CODE/TIME: 30 minutes; 34917, [id number]
--- NOTE | 2020-06-19 08:13 | INDS_ITS ---
Date of service: 06/19/20 Time of Service: 08:13 PT Notes Visit Reasons: ACUTE FRACTURE LEFT HIP,HYPONATREMIA,CHRONIC ALCOH Physical Therapy Inpatient Discharge Summary Date: 06/19/2020 Dates of service: 06/14/2020 through 06/18/2020 This is a clinical summary of care provided on the duration of dates listed above. No charge was made in the completion of this documentation. 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 Underwent ORIF earlier today performed by Dr. Mcclendon. 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 Geoffrey Dumont Alcohol use disorder Smalls's esophagus 10/17/2018 EGD ([facility] [place] esophageal mucosal changes classified as Smalls's stage C0-M1 per [place] criteria (also showed resolution of esophageal varices on carvedilol 6.25 mg BID) Basal cell carcinoma (BCC) Face Bilateral lower extremity edema (01/14/18) Related to cirrhosis BPH w urinary obs/LUTS (03/10/13) Al hemangioma (02/18/17) Dr. Geoffrey Dumont Chronic obstructive lung disease (03/15/13) 01/2007 PFTs: FEV1 90%; 06/2019 PFTs: FEV1/FVC 56% --> severe obstructive airways disease with no bronchodilator response Dysphagia 10/17/2018 EGD ([facility] [place]): Smalls's & interval resolution of esophageal varices seen on previous EGD (see Smalls's dx comments for details); 06/06/2019 Barium Swallow: some dysmotility & aspiration --> referred to Speech Therapy 04/12/20 [facility] [place] Esophageal Manometry; 05/17/2020 EGD: Grade I esophageal varices, duodenal erosions w/o bleeding, no obstructive cause for dysphagia Esophageal varices 06/22/2017 EGD (Dr. Cheney): grade 1 w/ stigmata of bleeding; 10/17/2018 EGD ([facility] [place] no evidence of esophageal or gastric varices on carvedilol 6.25 mg BID Family history of malignant melanoma ov note dated 05/10/20-Dr. Hale Gastroesophageal reflux disease (03/15/13) HH surgery 08/1990 GERD (gastroesophageal reflux disease) Hepatic cirrhosis (01/14/18) [facility] [place] 02/24/2018 Fibroscan: stage 4 liver fibrosis, consistent with cirrhosis with possible portal HTN 06/22/2018 EGD (Dr. 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/24/13) S/p repair L; then occurred on R side and now chronic Hyperlipidemia (03/24/13) 11/2018 labs: good response to high potency statin, continue Hyperlipidemia Hypertension (08/01/14) Incisional hernia, without obstruction or gangrene (01/17/18) [facility] [place] consult Incontinence of feces Malignant neoplasm of prostate Rectosphincteric dyssynergia Manifested as fecal incontinence and constipation; resolved with daily fiber supplementation Restless leg syndrome Rotator cuff syndrome (03/24/13) S/p B/L repair Seborrheic keratosis (02/18/17) Dr. Hale Derm Sigmoid diverticulosis (02/01/18) 02/01/2018 colonoscopy Squamous cell carcinoma Face Tobacco use disorder 1.5 PPD Surgical History Colonoscopy - MAC (02/01/18) H/O colonoscopy 05/17/20 at [facility] [place] - no need for further to have any further colonscopy per report H/O endoscopy 05/17/20 [facility] [place] History of esophagogastroduodenoscopy (EGD) (06/22/18) Dr cheney, grade I esophageal varices Left shoulder (09/24/07) Marci Fundoplication (03/24/85) Prostatectomy (~05/2007) Repair of incision from Marci fundoplication (03/24/87) right shoulder (03/24/00) Social History/Home Situation: Patient reports that he lives alone. 2 steps from his garage and onto his deck with a grab bar followed by another step from the deck into his home with grab bar. Has a multilevel home but reports all of his essentials are on one level. Current Functional Limitations: Unable to independently perform bed mobility, transfers, ambulation. Equipment Owned/DME: None Subjective: NT. See most recent CLINICAL SERVICES PROFESSIONAL notes. Objective: General Observation: NT. See most recent CLINICAL SERVICES PROFESSIONAL notes. Mental Status: NT. See most recent CLINICAL SERVICES PROFESSIONAL notes. ROM: Right Upper Extremity: Within functional limits in all planes Left Upper Extremity: 45 degrees active elevation. Reports long history of decreased of left upper extremity secondary to massive rotator cuff tears. I persisted 130 degrees of elevation. Elbow flexion extension within functional limits. Right Lower Extremity: Within functional limits actively Left Lower Extremity: Active assistive flexion 95 degrees, abduction 25 degrees, external rotation 25 degrees, internal rotation 10 degrees. Active assisted knee flexion 110 degrees. Extension 0 degrees. Active ankle range of motion within functional limits Strength: Right Upper Extremity: 4/5 flexion, bicep, tricep with good documentation nurse. Left Upper Extremity: 3 -/5 flexion and abduction, bicep 4/5, tricep 4/5. Good documentation nurse Right Lower Extremity: Patient perform straight leg raise with 0 degree lag. Hip flexion 4+/5, quads and hamstrings 4/5. Ankle plantar flexion dorsiflexion 5/5. Left Lower Extremity: Hip not tested secondary to surgical procedure within the last 4 hours. 4 -/5 hamstring, 4 -/5 quad. 4/5 ankle plantar and dorsiflexion Sensation: Decreased sensation reported throughout the posterior lateral aspect of the left hip Bed Mobility/Transfers: Sit to stand: stand by assist Stand to sit: stand by assist Sit to supine: stand by assist Gait: Patient ambulated 40 feet contact-guard x 1 with front wheeled walker and verbal cues for weight bearing tolerance and advancement of left lower extremity. Balance: Static Sitting: Good Dynamic Sitting: Fair Static Standing: Poor Dynamic Standing: Poor Assessment: Patient is a 74-year old male referred to physical therapy services with the diagnosis of status post left hip ORIF secondary to intertrochanteric fracture. Patient continues to present with clinical signs and symptoms consistent with above diagnosis, as demonstrated by the following impairment level findings: Joint mobility, motor function, muscle performance and range of motion associated with bony tissue surgery. He currently demonstrates the following i mpairment level findings: 1. Decreased strength to left lower extremity hip, knee major muscle groups 2. Impaired standing balance 3. Impaired activity tolerance 4. Limited joint range of motion left hip Impairments are continuing to contribute to the following functional limitations: 1. Increased dependence with transfers 2. Inability to safely ambulate without assistive device and physical assistance 3. Increase completion time for mobility ADL performance 4. Increased fall risk 5. Inability to negotiate steps alone safely. Impairments are contributing to the following functional limitations: AMPAC score. Patient will require front wheeled walker upon discharge from PT to promote safety with ambulation and improve functional mobility and quality of life. Goals: Goals X1 week 1. Supine-Sit: Standby assist NOT MET 2. Sit-Supine: Standby assist NOT MET 3. Sit-Stand: Standby assist of front wheeled walker NOT MET 4. Stand-Sit: Standby assist from front wheeled walker NOT MET 5. Bed-Chair: Standby assist with front wheeled walker NOT MET 6. Chair-Bed: Stand by assist with front wheeled walker NOT MET 7. Gait: Ambulating greater than equal to 150 feet with standby assist with front wheeled walker NOT MET 8. Stairs: Safely negotiate 3 steps up and down with least required assistive device NOT MET 20 9. Independent with home exercise program. NOT MET DISCHARGE RECOMMENDATIONS: Patient will benefit from intermediate facility placement for continued skilled physical therapy services in order to progress mobility level, strength, and balance in preparation for a safe discharge to home. TREATMENT CODE/TIME: FL Thank you for the opportunity to participate in the care of this patient. Brittnee Thornton PT, DPT, CLT [facility] [place], [place] I wonder if stay is 11 physical Therapy Inpatient Discharge Summary
== END 2020-06-18 13:09 | disposition skilled nursing facility (03) | DRG 481 ==
LOC: ER 04:01 → MS 04:26
PROVIDERS: Internal Medicine; Orthopaedic Surgery; Admitting Provider Family Medicine; Emergency Provider Student in an Organized Health Care Education/Training Program; PCP Nurse Practitioner Family; Visit Provider Family Medicine
PROC: 0QS706Z Reposition Left Upper Femur with Intramedullary Internal Fixation Device, Open Approach (ICD-10-PCS; CPT 27245; principal; 2020-06-15 08:15)
DX: S72.142A Displaced intertrochanteric fracture of left femur, initial encounter for closed fracture (principal); E87.1 Hypo-osmolality and hyponatremia; W18.39XA Other fall on same level, initial encounter; F10.229 Alcohol dependence with intoxication, unspecified; Z85.46 Personal history of malignant neoplasm of prostate; K22.70 Barrett's esophagus without dysplasia; N40.1 Benign prostatic hyperplasia with lower urinary tract symptoms; J44.9 Chronic obstructive pulmonary disease, unspecified; K21.9 Gastro-esophageal reflux disease without esophagitis; K70.30 Alcoholic cirrhosis of liver without ascites; E78.5 Hyperlipidemia, unspecified; I10 Essential (primary) hypertension; G25.81 Restless legs syndrome; K57.30 Diverticulosis of large intestine without perforation or abscess without bleeding; F17.210 Nicotine dependence, cigarettes, uncomplicated; L89.151 Pressure ulcer of sacral region, stage 1; E86.0 Dehydration; I95.9 Hypotension, unspecified; D53.9 Nutritional anemia, unspecified; Z66 Do not resuscitate
CPT/HCPCS: 27245; 36415; 80048; 80053; 82550; 90471; 94640; 96360; 96361; 97110; 97162; 97530; 99221; 99223; 99232; 99233; 99239; 99252; 99254; 99285; NC; U0003; 70450; 71045; 72125; 73501; 73502; 80320; 82248; 82607; 82728; 82746; 83735; 84443; 84484; 85018; 85025; 85610; 85730; 93005; 93010; A6212; J0690; J1650; J1885; J2270; J2405

== ENCOUNTER 2020-06-24 11:15 | Outpatient (REF) | payer MEDICARE, BC, SELFPAY ==
[2020-06-26 10:02] LABS: SARS-CoV-2 RNA Not Detected (NotDetected); SARS-CoV-2 RNA Source Nasal/Nares
== END 2020-06-24 11:35 ==
LOC: LBN 11:15
PROVIDERS: PCP Nurse Practitioner Family; Visit Provider Nurse Practitioner Adult Health
DX: Z11.59 Encounter for screening for other viral diseases (principal)
CPT/HCPCS: U0003

== ENCOUNTER 2020-06-30 12:07 | Outpatient (REF) | payer MEDICARE, BC, SELFPAY ==
[2020-07-01 09:02] LABS: COVID-19 RT-PCR UVMMC Result Negative (Negative)
== END 2020-06-30 12:27 ==
LOC: LBN 12:07
PROVIDERS: PCP Nurse Practitioner Family; Visit Provider Family Medicine
DX: Z11.59 Encounter for screening for other viral diseases (principal)
CPT/HCPCS: U0003

== ENCOUNTER 2020-07-08 15:49 | Outpatient (REF) | payer MEDICARE, BC, SELFPAY ==
[2020-07-08 18:29] LABS: Abs Immature Grans 0.03 10^3/uL (0.0-0.06); Absolute Basophil Count 0.07 10^3/uL (0.0-0.2); Absolute Eosinophil Count 0.21 10^3/uL (0.0-0.7); Absolute Lymphocyte Count 1.11 10^3/uL (1.2-3.4); Absolute Monocyte Count 1.09 10^3/uL (0.1-0.8); Absolute Neutrophil Count 6.68 10^3/uL (1.2-6.7); Basophils % 0.8; Eosinophils % 2.3; HCT 28.4 % (40.0-50.0); Immature Grans % 0.3; Lymphocytes % 12.1; MCH 31.8 pg (27.0-33.0); MCHC 31.7 % (32.0-36.0); MCV 100.4 fL (80-95); MPV 8.9 fL (8.0-11.0); Monocytes % 11.9; Neutrophils % 72.6; Nucleated RBC 0 %; RBC 2.83 10^6/uL (4.36-5.78); RDW 14.4 % (11.8-14.1); RDW-SD 52.5 fL; WBC 9.19 10^3/uL (4.4-10.8)
[2020-07-08 18:32] LABS: Platelet Count 397 10^3/uL (130-400)
[2020-07-08 18:46] LABS: ALT 34 U/L (16-63); AST 37 U/L (15-37); Albumin 3.1 g/dL (3.4-5.0); Alkaline Phosphatase 186 U/L (46-116); Anion Gap 5.3 mmol/L (3-11); BUN 8 mg/dL (7-18); Bilirubin, Total 0.7 mg/dL (0.2-1.0); CO2 29.7 mmol/L (21.0-32.0); CREATININE 0.72 mg/dL (0.70-1.30); Calcium 8.4 mg/dL (8.5-10.1); Chloride 96 mmol/L (98-107); Glucose 93 mg/dL (74-106); NT-proBNP 404 pg/mL (<300); Potassium 4.3 mmol/L (3.5-5.1); Sodium 131 mmol/L (136-145); Total Protein 6.3 g/dL (6.4-8.2)
[2020-07-15 15:56] LABS: Prealbumin 9 mg/dL (19-38)
== END 2020-07-08 16:09 ==
LOC: LBN 15:49
PROVIDERS: PCP Nurse Practitioner Family; Visit Provider Nurse Practitioner Adult Health
DX: I50.9 Heart failure, unspecified (principal); K70.30 Alcoholic cirrhosis of liver without ascites; R19.8 Other specified symptoms and signs involving the digestive system and abdomen
CPT/HCPCS: 80053; 83880; 84134; 85025

== ENCOUNTER 2020-07-17 12:50 | Inpatient (IN) | payer MEDICARE, BC, SELFPAY ==
[2020-07-17] VITALS (57 sets, daily range): BP systolic 110–146; BP diastolic 52–81; PULSE 64–86; RESP 10–25; TEMP 36.5–36.8; O2SAT 94–99
--- NOTE | 2020-07-17 | DI.CT_ITS ---
EXAM: CT THORACIC LUMBAR SPINE REC CLINICAL HISTORY: TRAUMA. REQUESTED by [facility] [place] TECHNIQUE: COMPARISON: CT ABD PELVIS WITH CONTRAST from 12/09/[address] CHEST/ABD/PEL W from 07/17/2020 FINDINGS: CT reconstructions of thoracic and lumbar spine were obtained from today's chest abdomen pelvis CT ex amination. No thoracic or lumbar spine fracture identified. There is a nondisplaced fracture of the proximal left 10th rib which is of uncertain age, please correlate regarding any acute trauma at thi s site. No other significant findings. IMPRESSION: Left 10th rib fracture proximally of uncertain age. No other acute findings RADIATION DOSE DELIVERED: Total DLP
--- NOTE | 2020-07-17 12:58 | W.ED.GENAD ---
Discharge Plan Disposition Patient Disposition: [facility] INPATIENT Condition: Stable Discharge Details Clinical Impression: C3 cervical fracture, Periprosthetic fracture around internal prosthetic left hip joint, Fracture of nasal bone, Closed fracture of left orbit Admit Date/Time: 07/17/20 18:54 Admit Provider: Hamzah Levine Attending Provider: Hamzah Levine Primary Care Provider: Stephie Jones ED Provider: Corine Dill Discharge Data Discharge Date/Time-TO BE ENTERED AT DEPARTURE: 07/17/20 20:35 Medical Decision Making 1300 -- 74-year-old male 6 weeks status post left hip intertrochanteric fracture repair with a history of alcohol abuse, COPD, GERD, hypertension, hyperlipidemia presents for left hip pain after fall earlier this morning. EKG on arrival notes a rate of 72, sinus without acute ST-T wave ischemic changes. He has multiple abrasions, right forehead, left elbow, right forearm. He is unable to flex his left hip due to pain. Left hip incision site healing well. Lungs clear. Abdomen soft and nontender. No midline spinal tenderness. No focal deficits. Patient referred for CT head/facial/cervical spine/chest abdomen pelvis imaging in addition to left elbow and left femur. 1500 -- Labs reviewed and note a sodium of 129. Troponin negative. Imaging reviewed and note a C3 fracture, nasal bone fracture and left orbital fracture, and a left hip fracture which appears new below the old hip fracture and gamma nail. 1800 -- Imaging reviewed with [facility] spine who recommended cervical collar and stated that this was a stable C3 fracture and recommended cervical spine x-rays to assess alignment and stability for follow-up. No indication for transfer per [facility] spine. Recommend follow-up at [facility] spine clinic in the next 2 to 4 weeks. Hip fracture discussed with Dr. Sarabia who reviewed imaging and notes that this new proximal femoral fracture is stable below the gamma nail and recommends continued weightbearing as tolerated. 1830 -- Case discussed with hospitalist who accepts patient for admission. Cervical spine x-rays noted: IMPRESSION: 1. Minimally displaced fracture of the C3 vertebra, as described above. Please refer to report of CT of the cervical spine of the same day for better evaluation. 2. No subluxations identified. 3. Degenerative changes as described above. Cervical spine x-rays pushed to [facility]. Medical Records Medical records reviewed: Yes I reviewed the patient's medical records. Imaging Data Radiologic Study: Radiologist's impression: CT HEAD CERV SPINE FACIAL WO CLINICAL HISTORY: s/p fall, r/o acute injury, fx TECHNIQUE: COMPARISON: CT CT HEAD CERVICAL SPINE WO from 06/15/2020 ECG ED EKG from 07/17/2020 FINDINGS: CT brain without IV contrast: There is mild soft tissue swelling over the right side of the head. There are no skull fractures nor fluid the visualized paranasal sinuses and mastoid air cells.. Retention cyst in the medial aspect of the right frontal sinus is noted, not associated with a fluid level. There appears to be a nasal bone fracture. There is no evidence of intracranial hemorrhage, mass effect, or shift of midline structures. There are no extra-axial fluid collections. Ventricles are not enlarged or shifted. There is no blood within the ventricular system nor within the basal cisterns. There is abundant bilateral periventricular hypodensity consistent with chronic small vessel ischemic changes but no acute territorial infarct evident. CT cervical spine: There is a fracture of C3 which is oblique anterior,. Posterior osseous elements at this level are not involved. There is no prominent prevertebral soft tissue swelling. No listhesis. No jumped facets. No acute compromise of the spinal canal at this level nor elsewhere in the cervical canal. CT facial bones: There is a retention cyst in the right frontal sinus. No sinus fracture or fluid level. No evidence of fluid levels in the paranasal sinuses. On the left side there is subtle fracture of the lateral wall of the orbit, inferiorly. No prominent hematoma at this level nor elsewhere in the orbit. IMPRESSION: No acute intracranial findings. Triangular fragment anterior aspect of C3 vertebral body. Mildly displaced. No spinal canal compromise. No jumped facets. No involvement of the posterior osseous column. Nasal bone fracture evident.. Also subtle fracture of the lateral wall of the left orbit. CT CHEST/ABD/PEL W CLINICAL HISTORY: s/p fall, r/o lung/abd injury TECHNIQUE: Imaging Protocol: Axial computed tomography images with coronal and sagittal reformatted images were created and reviewed CONTRAST MATERIAL: Intravenous: Omnipaque 350 Contrast volume:structured data in ml Oral: yes / no COMPARISON: CT ABD PELVIS WITH CONTRAST from 12/09/2017 CR,XR XR HIP LT COMPLETE AP PELVIS from 06/15/2020 XR HIP LT IN OR from 06/15/2020 XR HIP LT IN OR from 06/15/2020 CR,XR XR HIP LT COMPLETE AP PELVIS from 06/15/2020 CR XR HIP LT COMPLETE AP PELVIS from 07/03/[address] HEAD CERV SPINE FACIAL WO from 07/17/[address] LOWER EXTREMITY LT WO from 07/17/2020 FINDINGS: CHEST: Lungs: There is scarring in both lung apices, the superimposed upon severe bilateral COPD findings. There is no evidence of pulmonary contusion nor significant pleural effusion and there is no pneumothorax. Mediastinum: There is no evidence of mediastinal hematoma. No incidental hilar nor mediastinal adenopathy. Thyroid unremarkable. Hiatal hernia again noted. Cardiac: Heart size normal. No pericardial effusion. Caliber thoracic aorta is within normal limits. No evidence of significant aortic trauma nor aortic dissection. Osseous: No rib fractures identified. No sternal fracture. No vertebral body fractures ABDOMEN: There is a mild amount of ascites which is in the perihepatic region and right paracolic gutter and pelvis. There is no hepatic laceration although the liver does appear cirrhotic. No obvious discrete focal hepatic mass. No acute gallbladder pathology. CBD mildly dilated. No significant focal pancreatic findings. Spleen is not enlarged. There is some perisplenic ascites. No splenic laceration evident. The splenic and portal veins are patent. There are no significant adrenal masses on the right side. Thickening of the higher left adrenal gland is noted. No evidence of significant renal trauma. No laceration. No significant focal renal findings. No hydronephrosis nor hydroureter. No obvious abnormality in the urinary bladder. Abdominal aorta is calcified but not significantly enlarged although there is lack of normal tapering distally. There is also calcification mild arterial megaly both common iliac arteries. There is anterior abdominal wall hernia mesh but there is also left of this anterior abdominal hernia which contains bowel loops. No bowel obstruction. No free air. PELVIS: There is extensive sigmoid diverticulosis. No evidence of obvious acute diverticulitis. A aortoiliac segments appear intact. Prostate gland is not seen, probably surgically absent disc or. No evidence of significant inguinal hernia. Anasarca noted over both flanks. Extending over the buttocks bilaterally. Osseous: No vertebral body fractures. Pubic rami and acetabular intact. No evidence of right hip fracture. On the left side there is a lag screw across an intertrochanteric fracture site.. There appears to possibly be re fracture in this region of the left hip. No obvious right hip fracture. IMPRESSION: 1. No acute intrathoracic findings. 2. Ascites in the abdomen pelvis but without evidence of organ laceration nor obvious bowel wall nor mesenteric hematoma.. The ascites is probably related to cirrhotic appearing liver. 3. Anterior abdominal wall hernia mesh noted. There is also left anterior abdominal hernia which contains small bowel loops. There is no bowel obstruction. No free air. 4. Extensive sigmoid diverticulosis. No obvious acute diverticulitis. 5. Left-sided lag screw across a recently operated fracture. Possible refractured through this region. Recommend portable plain films of the left hip. The opposite-right hip appears intact. CT THORACIC LUMBAR SPINE REC CLINICAL HISTORY: TRAU[place]. [place] [facility] [place]: COMPARISON: CT ABD PELVIS WITH CONTRAST from 12/09/[address] CHEST/ABD/PEL W from 07/17/2020 FINDINGS: CT reconstructions of thoracic and lumbar spine were obtained from today's chest abdomen pelvis CT examination. No thoracic or lumbar spine fracture identified. There is a nondisplaced fracture of the proximal left 10th rib which is of uncertain age, please correlate regarding any acute trauma at this site. No other significant findings. IMPRESSION: Left 10th rib fracture proximally of uncertain age. No other acute findings. CT LOWER EXTREMITY LT WO CLINICAL HISTORY: s/p fall, h/o recent L hip replacement, r/o fx TECHNIQUE: COMPARISON: CR XR HIP LT COMPLETE AP PELVIS from 07/03/2020 CR XR HIP LT COMPLETE AP PELVIS from 07/03/[address] CHEST/ABD/PEL W from 07/17/2020 FINDINGS: CT examination of the left hip and femur was performed. The patient had prior intertrochanteric fracture of the femur with marked comminution and displacement of fracture fragments. A gamma nail was placed and today's examination is compared with postoperative films of July 03. On today's film, there is no change in alignment of the intertrochanteric fracture fragments. However, there is an apparent new nondisplaced fracture of the proximal femoral diaphysis at the level of the distal aspect of the intramedullary component of the gamma nail. XR HIP LT COMPLETE AP PELVIS CLINICAL HISTORY: s/p fall, r/o new fx near distal gamma nail TECHNIQUE: COMPARISON: CR XR HIP LT COMPLETE AP PELVIS from 07/03/2020 FINDINGS: Two views were obtained. Note is again made of previously described comminuted intertrochanteric fracture with gamma nail in place, no gross interval change in alignment from July 03. The linear lucency seen on today's CT examination highly suspicious for nondisplaced fracture of the proximal femoral diaphysis at the level of the distal portion of the intra medullary component of gamma nail is not seen radiographically. XR Cervical Spine, 2 or 3 Views Exam date and time: 07/17/2020 7:16 PM Age: 74 years old Clinical indication: Condition or disease; Other: Known c3 FX; Additional info: Exam done in stretcher, ap sitting, 90* upright per [facility] TECHNIQUE: Imaging protocol: XR of the cervical spine, 2 or 3 views. COMPARISON: CT HEAD CERV SPINE FACIAL WO 07/17/2020 2:38 PM FINDINGS: Bones/joints: There appears to be an oblique fracture through the inferior aspect of the C3 vertebra extending to the anterior cortex, where there is approximately 2-3 mm displacement. No other fractures are identified. There are no cervical subluxations. There is multilevel moderate facet arthrosis throughout the mid and lower cervical spine as well as multilevel mild spondylosis. Findings suggest mild broad-based cervical levoscoliosis. Soft tissues: Unremarkable. Other findings: There is bilateral carotid calcification. IMPRESSION: 1. Minimally displaced fracture of the C3 vertebra, as described above. Please refer to report of CT of the cervical spine of the same day for better evaluation. 2. No subluxations identified. 3. Degenerative changes as described above. XR ELBOW LT COMPLETE CLINICAL HISTORY: s/p fall, r/o acute fracture. TECHNIQUE: 2D digital imaging was performed. COMPARISON: No exams were available for comparison FINDINGS: There is no obvious fracture of the left elbow nor joint effusion. No swelling of the olecranon bursa. Radial head appears intact. IV in the antecubital fossa noted. IMPRESSION: No obvious fracture of the left elbow. Lab Data Lab results reviewed: Yes I reviewed the patient's lab results. ECG Data Attestation: I personally reviewed and interpreted this ECG (s) as follows: Interpretation: Rate of 72, sinus, no acute ST elevation or depression. KS 169. QRS 103. QTc 465. HPI General Mode of arrival: ambulatory. Date/Time Provider Initiated Documentation: 07/17/20 13:08. Limitations to Documentation: no limitations. Information obtained by: patient. HPI Narrative: Pt is a 74yo M who is male 6 weeks status post left hip intertrochanteric fracture repair with a history of alcohol abuse, COPD, GERD, hypertension, hyperlipidemia presents for left hip pain after fall earlier this morning. Patient states that he was sitting at his kitchen table having a nightcap at 2 AM when he got up to start walking and slipped and fell onto his left hip on the floor. Patient also has a right forehead abrasion but he did not recall hitting his head. He denies any LOC or vomiting. He denies any other specific pain anywhere. He denies headache, neck pain, chest pain, abdominal pain, back pain, bilateral arm pain or right hip pain. Patient states his daughter was able to check on him and helped him 30 minutes after his fall and helped him ambulate to his bed. Related Data Home Medications Medication Instructions Recorded Confirmed Metamucil 1 - 2 tbs PO DAILY 02/25/18 07/17/20 atorvastatin 40 mg tablet 40 mg PO DAILY #90 tab-cap 11/23/19 07/17/20 acetaminophen [Tylenol] 650 mg PO Q4H PRN PRN #0 tab 06/18/20 07/17/20 budesonide-formoterol [Symbicort] 2 puff INHALATION BID #10.2 g 06/18/20 07/17/20 carvedilol 3.125 mg PO BID #180 tab-cap 06/18/20 07/17/20 cyanocobalamin (vitamin B-12) 1,000 mcg PO DAILY #0 tab 06/18/20 07/17/20 [Vitamin B-12] docusate sodium [Colace] 100 mg PO TID #0 cap 06/18/20 07/17/20 pantoprazole 40 mg PO DAILY@0730 #30 tab 06/18/20 07/17/20 polyethylene glycol 3350 17 g PO DAILY PRN PRN #0 ea 06/18/20 07/17/20 thiamine mononitrate (vit B1) 100 mg PO DAILY #0 tab 06/18/20 07/17/20 [Vitamin B-1 (mononitrate)] furosemide 20 mg tablet 20 mg PO QAM #90 tab-cap 07/08/20 07/17/20 trazodone 50 mg tablet 50 mg PO QHS PRN #20 tab 07/08/20 07/17/20 Previous Rx's Medication Instructions Recorded atorvastatin 40 mg tablet 40 mg PO DAILY #90 tab-cap 11/23/19 acetaminophen [Tylenol] 650 mg PO Q4H PRN PRN #0 tab 06/18/20 budesonide-formoterol [Symbicort] 2 puff INHALATION BID #10.2 g 06/18/20 carvedilol 3.125 mg PO BID #180 tab-cap 06/18/20 cyanocobalamin (vitamin B-12) 1,000 mcg PO DAILY #0 tab 06/18/20 [Vitamin B-12] docusate sodium [Colace] 100 mg PO TID #0 cap 06/18/20 pantoprazole 40 mg PO DAILY@0730 #30 tab 06/18/20 polyethylene glycol 3350 17 g PO DAILY PRN PRN #0 ea 06/18/20 thiamine mononitrate (vit B1) 100 mg PO DAILY #0 tab 06/18/20 [Vitamin B-1 (mononitrate)] furosemide 20 mg tablet 20 mg PO QAM #90 tab-cap 07/08/20 trazodone 50 mg tablet 50 mg PO QHS PRN #20 tab 07/08/20 Allergies Allergy/AdvReac Type Severity Reaction Status Date / Time erythromycin base AdvReac Mild Verified 07/17/20 13:13 [From E-Mycin] General JAMEE: 2 Review of Systems All systems reviewed & are unremarkable except as noted in HPI and below Constitutional Constitutional: Reports as per HPI, Denies chills and Denies fever(s) Eyes Eyes: Denies blurry vision ENT Ears, Nose, Mouth, and Throat: Denies dizziness, Denies sore throat and Denies throat swelling Cardiovascular Cardiovascular: Denies chest pain and Denies dyspnea Respiratory Respiratory: Denies cough and Denies dyspnea Gastrointestinal Gastrointestinal: Denies abdominal pain, Denies diarrhea and Denies vomiting Genitourinary Genitourinary: Denies hematuria and Denies dysuria Musculoskeletal Musculoskeletal: Denies back pain, Denies numbness and Reports other (Left hip pain.) Integumentary/Breasts Skin/Breast: Denies lesions and Denies rash Neurologic Neurologic: Denies dizziness, Denies localized weakness and Denies numbness Allergic/Immunologic Allergic/Immunologic: Denies throat swelling PFSH Medical History 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 Geoffrey Dumont Chronic obstructive lung disease (03/15/13) 01/2007 PFTs: FEV1 90%; 06/2019 PFTs: FEV1/FVC 56% --> severe obstructive airways disease with no bronchodilator response Dysphagia 10/17/2018 [place] [place] Smalls's & interval resolution of esophageal varices seen on previous EGD (see Smalls's dx comments for details); 06/06/2019 Barium Swallow: some dysmotility & aspiration --> referred to Speech Therapy 04/12/20 [facility] Manometry; 05/17/2020 EGD: Grade I esophageal varices, duodenal erosions w/o bleeding, no obstructive cause for dysphagia Esophageal varices 06/22/2017 EGD (Dr. Cheney): grade 1 w/ stigmata of bleeding; 10/17/2018 [place] [place] no evidence of esophageal or gastric varices on carvedilol 6.25 mg BID Family history of malignant melanoma ov note dated 05/10/20-Dr. Hale Gastroesophageal reflux disease (03/15/13) surgery 08/1990 GERD (gastroesophageal reflux disease) Hepatic cirrhosis (01/14/18) [facility] 02/24/2018 Fibroscan: stage 4 liver fibrosis, consistent with cirrhosis with possible portal HTN 06/22/2018 EGD (Dr. 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 Hale Derm Sigmoid diverticulosis (02/01/18) 02/01/2018 colonoscopy Squamous cell carcinoma Face Tobacco use disorder 1.5 PPD Surgical History Colonoscopy - MAC (02/01/18) [place]17[place] [facility] no need for further to have any further colonscopy per report H/O endoscopy 05/17/[place] [facility] History of esophagogastroduodenoscopy (EGD) (06/22/18) dr cheney, grade I esophageal varices Left shoulder (09/24/07) Marci Fundoplication (03/24/85) Prostatectomy (~05/2007) Repair of incision from Marci fundoplication (03/24/87) right shoulder (03/24/00) Family History Mother , resp failure No problems noted. Father , prostate CA Personal history of malignant neoplasm prostate Malignant melanoma Social History Smoking/Tobacco Use Status: Current every day Tobacco Type: cigarettes Smoking risk assessment performed?: Yes Alcohol Intake: current Alcohol Intake frequency: 3 or more drinks per day Alcohol type: beer and hard liquor Drug use: Never Substance use type: does not use Caregiver/Support person: No Number of Children: 2 Communication Needs: None current occupation: Retired Current gender identity: male What type of physical activity do you participate in: none Seatbelt use: always Water heater temp set <120 deg: Yes Working smoke detector in home: Yes Fire extinguisher in home: Yes Carbon monox detector in home: Yes Firearms in home: No Do you feel safe at home: Yes Do you feel safe in your relationship?: Yes Exam Const General: cooperative and ill appearing chronically Orientation: alert, awake and not oriented x3 HENMT Head: normal to inspection Head images: 1. Superficial abrasion Ears: hearing grossly normal bilaterally, external ears normal and TM's normal bilaterally General nose exam: external nose normal Face and sinus: normal facial exam Mouth: oral mucosae normal Teeth and gingiva: dentition normal Throat: posterior oropharynx normal Eyes General: appearance normal, both eyes and all related structures Eyelids: eyelids normal Pupils: PERRL EOM: EOM intact bilaterally Neck Neck: normal visual inspection Lymphatic: no lymphadenopathy noted Chest Chest: normal inspection of the chest Resp Effort & Inspection: normal respiratory effort and able to speak in complete sentences Auscultation: clear to auscultation bilaterally Cardio Rate: regular rate Rhythm: regular rhythm GI Inspection: normal to inspection Palpation: soft, not firm, no guarding, no hepatosplenomegaly, no masses and nontender Auscultation: normal bowel sounds Back/Spine/Pelvis Back: no CVA tenderness Cervical Spine: No cervical spinal tenderness Thoracic/Lumbar Spine: No thoracic spinal tenderness and No lumbar spinal tenderness Pelvis: no pain with anterior-posterior compression Skin General skin exam: no rashes or lesions noted Neuro General: patient alert and patient awake Cognition: normal cognition Speech: speech normal Gait: normal gait Motor: muscle tone normal throughout Sensory Exam: no sensory deficits noted Extrem General: normal to inspection, full ROM and capillary refill normal Other: Unable to flex at left hip due to pain. Left hip incision site healing well without signs of acute trauma or cellulitis. Psych Appearance: grossly normal Mental Status: mental status grossly normal Speech and Movement: speech and movement normal Affect: normal affect Thought Process: normal
--- NOTE | 2020-07-17 13:30 | DI.CT_ITS ---
EXAM: CT CHEST/ABD/PEL W CLINICAL HISTORY: s/p fall, r/o lung/abd injury TECHNIQUE: Imaging Protocol: Axial computed tomography images with coronal and sagittal reformatted images were created and reviewed CONTRAST MATERIAL: Intravenous: Omnipaque 350 Contrast volume:structured data in ml Oral: yes / no COMPARISON: CT ABD PELVIS WITH CONTRAST from 12/09/2017 CR,XR XR HIP LT COMPLETE AP PELVIS from 06/15/2020 XR HIP LT IN OR from 06/15/2020 XR HIP LT IN OR from 06/15/2020 CR,XR XR HIP LT COMPLETE AP PELVIS from 06/15/2020 CR XR HIP LT COMPLETE AP PELVIS from 07/03/[address] HEAD CERV SPINE FACIAL WO from 07/17/[address] LOWER EXTREMITY LT WO from 07/17/2020 FINDINGS: CHEST: Lungs: There is scarring in both lung apices, the superimposed upon severe bilateral COPD findings. There is no evidence of pulmonary contusion nor significant pleural effusion and there is no pneumoth orax. Mediastinum: There is no evidence of mediastinal hematoma. No incidental hilar nor mediastinal adeno kadeem. Thyroid unremarkable. Hiatal hernia again noted. Cardiac: Heart size normal. No pericardial effusion. Caliber thoracic aorta is within normal limits . No evidence of significant aortic trauma nor aortic dissection. Osseous: No rib fractures identified. No sternal fracture. No vertebral body fractures ABDOMEN: There is a mild amount of ascites which is in the perihepatic region and right paracolic gutter and p huma. There is no hepatic laceration although the liver does appear cirrhotic. No obvious discrete focal hepatic mass. No acute gallbladder pathology. CBD mildly dilated. No significant focal panc reatic findings. Spleen is not enlarged. There is some perisplenic ascites. No splenic laceration evident. The splenic and portal veins are patent. There are no significant adrenal masses on the ri ght side. Thickening of the higher left adrenal gland is noted. No evidence of significant renal tr auma. No laceration. No significant focal renal findings. No hydronephrosis nor hydroureter. No o bvious abnormality in the urinary bladder. Abdominal aorta is calcified but not significantly enlarg ed although there is lack of normal tapering distally. There is also calcification mild arterial mino rossy both common iliac arteries. There is anterior abdominal wall hernia mesh but there is also left of this anterior abdominal hernia which contains bowel loops. No bowel obstruction. No free air. PELVIS: There is extensive sigmoid diverticulosis. No evidence of obvious acute diverticulitis. A aortoilia c segments appear intact. Prostate gland is not seen, probably surgically absent disc or. No eviden ce of significant inguinal hernia. Anasarca noted over both flanks. Extending over the buttocks justus aterally. Osseous: No vertebral body fractures. Pubic rami and acetabular intact. No evidence of right hip f racture. On the left side there is a lag screw across an intertrochanteric fracture site.. There ap pears to possibly be re fracture in this region of the left hip. No obvious right hip fracture. IMPRESSION: 1. No acute intrathoracic findings. 2. Ascites in the abdomen pelvis but without evidence of organ laceration nor obvious bowel wall nor mesenteric hematoma.. The ascites is probably related to cirrhotic appearing liver. 3. Anterior abdominal wall hernia mesh noted. There is also left anterior abdominal hernia which con tains small bowel loops. There is no bowel obstruction. No free air. 4. Extensive sigmoid diverticulosis. No obvious acute diverticulitis. 5. Left-sided lag screw across a recently operated fracture. Possible refractured through this regio n. Recommend portable plain films of the left hip. The opposite-right hip appears intact. RADIATION DOSE DELIVERED: 1,317.56mGy.cm Total DLP DATA REPOSITORY: All CT scans at this facility are submitted to the National Radiology Data Registry (NRDR) Dose Index Registry (DIR) with the [employer] (ACR). RADIATION OPTIMIZATION: All CT scans at this facility use at least one of these dose optimization te chniques: automated exposure control; mA and/or kV adjustment per patient size (includes targeted exa ms where dose is matched to clinical indication); or iterative reconstruction.
--- NOTE | 2020-07-17 13:30 | RT.EKG_ITS ---
APPROVED REPORT Exam: Resting ECG Patient Location: E HR:72 bpm ECG Measurements Heart Rate 72 AXIS WV 169 P 87 QRSd 103 QRS 77 QT 425 T 75 QTc 465 Conclusion Sinus rhythm...normal P axis, V-rate 60- 99 I have reviewed and interpreted ECG and agree with software generated interpretation.
--- NOTE | 2020-07-17 13:30 | DI.CT_ITS ---
EXAM: CT HEAD CERV SPINE FACIAL WO CLINICAL HISTORY: s/p fall, r/o acute injury, fx TECHNIQUE: COMPARISON: CT CT HEAD CERVICAL SPINE WO from 06/15/2020 ECG ED EKG from 07/17/2020 FINDINGS: CT brain without IV contrast: There is mild soft tissue swelling over the right side of the head. There are no skull fractures nor fluid the visualized paranasal sinuses and mastoid air cells.. Rete ntion cyst in the medial aspect of the right frontal sinus is noted, not associated with a fluid leve l. There appears to be a nasal bone fracture. There is no evidence of intracranial hemorrhage, mass effect, or shift of midline structures. There are no extra-axial fluid collections. Ventricles are not enlarged or shifted. There is no blood wit hin the ventricular system nor within the basal cisterns. There is abundant bilateral periventricula r hypodensity consistent with chronic small vessel ischemic changes but no acute territorial infarct evident. CT cervical spine: There is a fracture of C3 which is oblique anterior,. Posterior osseous elements at this level are n ot involved. There is no prominent prevertebral soft tissue swelling. No listhesis. No jumped face ts. No acute compromise of the spinal canal at this level nor elsewhere in the cervical canal. CT facial bones: There is a retention cyst in the right frontal sinus. No sinus fracture or fluid level. No evidence of fluid levels in the paranasal sinuses. On the left side there is subtle fracture of the lateral wall of the orbit, inferiorly. No prominent hematoma at this level nor elsewhere in the orbit. IMPRESSION: No acute intracranial findings. Triangular fragment anterior aspect of C2 vertebral body. Mildly displaced. No spinal canal comprom ise. No jumped facets. No involvement of the posterior osseous column. Nasal bone fracture evident.. Also subtle fracture of the lateral wall of the left orbit.
--- NOTE | 2020-07-17 13:30 | DI.RAD_ITS ---
EXAM: XR ELBOW LT COMPLETE CLINICAL HISTORY: s/p fall, r/o acute fracture. TECHNIQUE: 2D digital imaging was performed. COMPARISON: No exams were available for comparison FINDINGS: There is no obvious fracture of the left elbow nor joint effusion. No swelling of the olecranon burs a. Radial head appears intact. IV in the antecubital fossa noted. IMPRESSION: No obvious fracture of the left elbow. DATA REPOSITORY: RADIATION DOSE DELIVERED:
[2020-07-17 13:59] LABS: Abs Immature Grans 0.04 10^3/uL (0.0-0.06); Absolute Basophil Count 0.03 10^3/uL (0.0-0.2); Absolute Eosinophil Count 0.15 10^3/uL (0.0-0.7); Absolute Lymphocyte Count 0.95 10^3/uL (1.2-3.4); Absolute Monocyte Count 1.02 10^3/uL (0.1-0.8); Absolute Neutrophil Count 6.64 10^3/uL (1.2-6.7); Basophils % 0.3; Eosinophils % 1.7; HCT 29.8 % (40.0-50.0); HGB 9.7 g/dL (13.5-17.5); Immature Grans % 0.5; Lymphocytes % 10.8; MCH 32.2 pg (27.0-33.0); MCHC 32.6 % (32.0-36.0); MPV 8.3 fL (8.0-11.0); Monocytes % 11.6; Neutrophils % 75.1; Nucleated RBC 0 %; Platelet Count 317 10^3/uL (130-400); RBC 3.01 10^6/uL (4.36-5.78); RDW 14.6 % (11.8-14.1); RDW-SD 53.1 fL; WBC 8.83 10^3/uL (4.4-10.8)
--- NOTE | 2020-07-17 14:00 | DI.CT_ITS ---
EXAM: CT LOWER EXTREMITY LT WO CLINICAL HISTORY: s/p fall, h/o recent L hip replacement, r/o fx TECHNIQUE: COMPARISON: CR XR HIP LT COMPLETE AP PELVIS from 07/03/2020 CR XR HIP LT COMPLETE AP PELVIS from 07/03/[address] CHEST/ABD/PEL W from 07/17/2020 FINDINGS: CT examination of the left hip and femur was performed. The patient had prior intertrochanteric frac ture of the femur with marked comminution and displacement of fracture fragments. A gamma nail was p laced and today's examination is compared with postoperative films of July 03. On today's film, there is no change in alignment of the intertrochanteric fracture fragments. However, there is an apparent new nondisplaced fracture of the proximal femoral diaphysis at the leve l of the distal aspect of the intramedullary component of the gamma nail. IMPRESSION: RADIATION DOSE DELIVERED: 474.51mGy.cm Total DLP
[2020-07-17 14:03] LABS: Bilirubin Negative (Negative); Blood Negative (Negative); Clarity Clear (Clear); Glucose Negative (Negative); Ketones Negative (Negative); Leukocyte Esterase Negative (Negative); Nitrite Negative (Negative); Specific Gravity 1.015 (1.005-1.025); Urobilinogen 0.2 EU/dL (Up TO 0.2)
[2020-07-17] MEDS: Normal Saline 500 ML IV (14:05)
[2020-07-17] MEDS: ACETAMINOPHEN 1,000 MG/100 ML BTL 400 MG IVPB (14:07)
[2020-07-17 14:16] LABS: INR 1.1 (0.9-1.1); Prothrombin Time 11.1 sec (9.3-11.0)
[2020-07-17 14:18] LABS: ALT 24 U/L (16-63); AST 33 U/L (15-37); Alkaline Phosphatase 177 U/L (46-116); Anion Gap 4.1 mmol/L (3-11); BUN 7 mg/dL (7-18); Bilirubin, Total 0.6 mg/dL (0.2-1.0); CO2 28.9 mmol/L (21.0-32.0); CREATININE 0.67 mg/dL (0.70-1.30); Calcium 8.3 mg/dL (8.5-10.1); Chloride 96 mmol/L (98-107); Glucose 97 mg/dL (74-106); Magnesium 1.9 mg/dL (1.8-2.4); Potassium 3.8 mmol/L (3.5-5.1); Sodium 129 mmol/L (136-145); Total Protein 6.7 g/dL (6.4-8.2); Troponin I < 0.05 ng/mL (<0.06)
[2020-07-17 14:23] LABS: *AMPHETAMINES SCREEN URINE Negative (Negative); *BARBITURATES SCREEN URINE Negative (Negative); *BENZODIAZEPINES SCREEN URINE Negative (Negative); Cannabinoids THC Negative (Negative); Cocaine Screen,Urine Negative (Negative); METHADONE URINE SCREEN Negative (Negative); OPIATES URINE SCREEN Negative (Negative)
[2020-07-17 14:29] LABS: Tricyclic Antidepressants Negative (Negative)
[2020-07-17 14:39] LABS: ETHANOL BLOOD < 3.0 mg/dL (<3)
[2020-07-17 14:44] LABS: PTT Activated 25.3 sec (21.0-27.5)
[2020-07-17] MEDS: Omnipaque 350 MG/ML 100 ML BTL IJ (14:56)
[2020-07-17] MEDS: Normal Saline - Diluent 50 ML VIAL IV (14:57)
--- NOTE | 2020-07-17 16:15 | DI.RAD_ITS ---
EXAM: XR HIP LT COMPLETE AP PELVIS CLINICAL HISTORY: s/p fall, r/o new fx near distal gamma nail TECHNIQUE: COMPARISON: CR XR HIP LT COMPLETE AP PELVIS from 07/03/2020 FINDINGS: Two views were obtained. Note is again made of previously described comminuted intertrochanteric fra cture with gamma nail in place, no gross interval change in alignment from July 03. The linear lucency seen on today's CT examination highly suspicious for nondisplaced fracture of the proximal femoral diaphysis at the level of the distal portion of the intra medullary component of eyad ma nail is not seen radiographically. IMPRESSION: RADIATION DOSE DELIVERED: Total DLP Total DLP
[2020-07-17] MEDS: MAGNESIUM SULFATE 8.12 MEQ, MULTIVITAMIN 10 ML, THIAMINE 100 MG, FOLIC ACID 1 MG in Nor... 168.867 MG IV (18:14)
--- NOTE | 2020-07-17 18:38 | W.PM.HP.N ---
Date of service: 07/17/20 Time of Service: 18:38 Assessment and Plan Assessment and plan (1) Hip pain: Status: Acute Assessment and plan: Hip pain s/p fall. Evidently contusion as no fracture per Ortho. Will give prn analgesics and have PT in. Anemia: chronic, at baseline Hyponatremia: chronic, at baseline Alcohol: will begin scheduled Librium and place on CIWA. Has received banana bag in ER. Code Status: per recent d/c summary has COLST expressing DNR. Will so order. History of Present Illness History of Present Illness Chief Complaint: fall Narrative: 74 male alcoholic, 5 week s/p ORIF left hip fracture. Fell early this morning, comes in c/o left hip pain. In ER initial question of prosthesis fx (by CT and plain film) but ER reports films reviewed with Ortho and verdict is that there is no fx. In meantime had incidental finding of oblique anterior fracture C3, reviewed with [facility] who advises this is stable and only requires hard collar. Note that patient has no neck pain and had been noted to be intact neurologically Due to ongoing hip pain, evident ambulatory dysfunction, and h/o alcoholism (reported to be scoring 18 on CIWA, and EtOH level <3) he is admitted for further management. 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 Geoffrey Dumont Chronic obstructive lung disease (03/15/13) 01/2007 PFTs: FEV1 90%; 06/2019 PFTs: FEV1/FVC 56% --> severe obstructive airways disease with no bronchodilator response Dysphagia 10/17/2018 EGD ([facility]): Smalls's & interval resolution of esophageal varices seen on previous EGD (see Smalls's dx comments for details); 06/06/2019 Barium Swallow: some dysmotility & aspiration --> referred to Speech Therapy 04/12/20 [facility] Esophageal Manometry; 05/17/2020 EGD: Grade I esophageal varices, duodenal erosions w/o bleeding, no obstructive cause for dysphagia Esophageal varices 06/22/2017 EGD (Dr. Cheney): grade 1 w/ stigmata of bleeding; 10/17/2018 EGD ([facility]): no evidence of esophageal or gastric varices on carvedilol 6.25 mg BID Family history of malignant melanoma ov note dated 05/10/20-Dr. Hale Gastroesophageal reflux disease (03/15/13) surgery 08/1990 GERD (gastroesophageal reflux disease) Hepatic cirrhosis (01/14/18) [facility] 02/24/2018 Fibroscan: stage 4 liver fibrosis, consistent with cirrhosis with possible portal HTN 06/22/2018 EGD (Dr. 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 Hale Derm Sigmoid diverticulosis (02/01/18) 02/01/2018 colonoscopy Squamous cell carcinoma Face Tobacco use disorder 1.5 PPD Surgical History Colonoscopy - MAC (02/01/18) H/O colonoscopy 05/17/20 at [facility] - no need for further to have any further colonscopy per report H/O endoscopy 05/17/20 [facility] History of esophagogastroduodenoscopy (EGD) (06/22/18) dr cheney, grade I esophageal varices Left shoulder (09/24/07) Marci Fundoplication (03/24/85) Prostatectomy (~05/2007) Repair of incision from Marci fundoplication (03/24/87) right shoulder (03/24/00) Family History Mother , resp failure No problems noted. Father , prostate CA Personal history of malignant neoplasm prostate Malignant melanoma Social History Smoking/Tobacco Use Status: Current every day Tobacco Type: cigarettes Smoking risk assessment performed?: Yes Alcohol Intake: current Alcohol Intake frequency: 3 or more drinks per day Alcohol type: beer and hard liquor Drug use: Never Substance use type: does not use Caregiver/Support person: No Number of Children: 2 Communication Needs: None current occupation: Retired Current gender identity: male What type of physical activity do you participate in: none Seatbelt use: always Water heater temp set <120 deg: Yes Working smoke detector in home: Yes Fire extinguisher in home: Yes Carbon monox detector in home: Yes Firearms in home: No Do you feel safe at home: Yes Do you feel safe in your relationship?: Yes Meds Home Medications and Allergies Home Medications Medication Instructions Recorded Confirmed Type Metamucil 1 - 2 tbs PO DAILY 02/25/18 07/17/20 History atorvastatin 40 mg tablet 40 mg PO DAILY #90 tab-cap 11/23/19 07/17/20 Rx acetaminophen [Tylenol] 650 mg PO Q4H PRN PRN #0 tab 06/18/20 07/17/20 Rx budesonide-formoterol [Symbicort] 2 puff INHALATION BID #10.2 g 06/18/20 07/17/20 Rx carvedilol 3.125 mg PO BID #180 tab-cap 06/18/20 07/17/20 Rx cyanocobalamin (vitamin B-12) 1,000 mcg PO DAILY #0 tab 06/18/20 07/17/20 Rx [Vitamin B-12] docusate sodium [Colace] 100 mg PO TID #0 cap 06/18/20 07/17/20 Rx pantoprazole 40 mg PO DAILY@0730 #30 tab 06/18/20 07/17/20 Rx polyethylene glycol 3350 17 g PO DAILY PRN PRN #0 ea 06/18/20 07/17/20 Rx thiamine mononitrate (vit B1) 100 mg PO DAILY #0 tab 06/18/20 07/17/20 Rx [Vitamin B-1 (mononitrate)] furosemide 20 mg tablet 20 mg PO QAM #90 tab-cap 07/08/20 07/17/20 Rx trazodone 50 mg tablet 50 mg PO QHS PRN #20 tab 07/08/20 07/17/20 Rx Allergies Allergy/AdvReac Type Severity Reaction Status Date / Time erythromycin base AdvReac Mild Verified 07/17/20 13:13 [From E-Mycin] Exam Narrative Exam Narrative: 127/60, 77, 36.5, 14, 96% RA. Heent atraumatic; neck in hard collar; lung diminished, heart occ ectopic; abdomen soft and NT; extremities 2+pedal edema, pulses intact, left hip wound C&D and nontender; neuro Ox3, moves all 4s, intact light touch Results Labs Result diagrams: 07/17/20 13:35 07/17/20 13:35 Labs: Laboratory Results - last 24 hr 07/17/20 07/17/20 07/17/20 13:35 13:35 13:35 WBC 8.83 RBC 3.01 L Hgb 9.7 L Hct 29.8 L MCV 99.0 H MCH 32.2 MCHC 32.6 RDW 14.6 H Plt Count 317 MPV 8.3 Immature Gran % 0.5 Neutrophils % 75.1 Lymphocytes % 10.8 Monocytes % 11.6 Eosinophils % 1.7 Basophils % 0.3 Nucleated RBC % 0 Absolute Neutrophils 6.64 Absolute Lymphocytes 0.95 L Absolute Monocytes 1.02 H Absolute Eosinophils 0.15 Absolute Basophils 0.03 PT 11.1 H INR 1.1 APTT 25.3 Sodium 129 L Potassium 3.8 Chloride 96 L Carbon Dioxide 28.9 Anion Gap 4.1 BUN 7 Creatinine 0.67 L Estimated GFR/1.73 m2 >= 60.00 Glucose 97 Calcium 8.3 L Magnesium 1.9 Total Bilirubin 0.6 AST 33 ALT 24 Alkaline Phosphatase 177 H Troponin I < 0.05 Total Protein 6.7 Albumin 3.0 L Urine Color Urine Clarity Urine pH Ur Specific [place] Urine Protein Urine Ketones Urine Blood Urine Nitrite Urine Bilirubin Urine Urobilinogen Ur Leukocyte Esterase Urine Glucose Urine Opiates Screen Urine Methadone Screen Ur Barbiturates Screen Ur Tricyclics Screen Ur Amphetamines Screen U Benzodiazepines Scrn Urine Cocaine Screen Ur THC Screen Ethyl Alcohol < 3.0 Patient ABO/Rh Antibody Screen 07/17/20 07/17/20 07/17/20 13:35 13:43 13:50 WBC RBC Hgb Hct MCV MCH MCHC RDW Plt Count MPV Immature Gran % Neutrophils % Lymphocytes % Monocytes % Eosinophils % Basophils % Nucleated RBC % Absolute Neutrophils Absolute Lymphocytes Absolute Monocytes Absolute Eosinophils Absolute Basophils PT INR APTT Sodium Potassium Chloride Carbon Dioxide Anion Gap BUN Creatinine Estimated GFR/1.73 m2 Glucose Calcium Magnesium Total Bilirubin AST ALT Alkaline Phosphatase Troponin I Total Protein Albumin Urine Color Yellow Urine Clarity Clear Urine pH 7.0 Ur Specific [place] 1.015 Urine Protein Negative Urine Ketones Negative Urine Blood Negative Urine Nitrite Negative Urine Bilirubin Negative Urine Urobilinogen 0.2 Ur Leukocyte Esterase Negative Urine Glucose Negative Urine Opiates Screen Negative Urine Methadone Screen Negative Ur Barbiturates Screen Negative Ur Tricyclics Screen Negative Ur Amphetamines Screen Negative U Benzodiazepines Scrn Negative Urine Cocaine Screen Negative Ur THC Screen Negative Ethyl Alcohol Patient ABO/Rh A Positive Antibody Screen Negative Last Vital Signs Temp 36.5 C 07/17/20 12:55 Pulse 69 07/17/20 17:06 Resp 14 07/17/20 17:10 BP 127/60 07/17/20 17:06 Pulse Ox 96 07/17/20 17:10 COVID-19 Screening Have you, or household traveled for leisure in last 14 days?: No Had IN PERSON contact w/suspected or confirmed C-19 person: No
[2020-07-17] MEDS: LORazepam 2 MG/ML VIAL 0.5 MG IVP (18:50)
--- NOTE | 2020-07-17 19:15 | DI.RAD_ITS ---
EXAM: XR CERVICAL SP CHARLES TRAUMA 2-3V CLINICAL HISTORY: C3 fx on CT, confirm alignment TECHNIQUE: COMPARISON: No exams were available for comparison FINDINGS: Three views were obtained. C3 vertebral body fracture noted on CT examination obtained earlier today is again noted, there is mild displacement of the anterior vertebral cortex estimated at 2 millimete rs. No other significant findings identified by plain film criteria. Posterior cortex not ideally v isualized. IMPRESSION: RADIATION DOSE DELIVERED: Total DLP Total DLP
--- NOTE | 2020-07-17 19:32 | DI.VRAD_ITS ---
PROCEDURE INFORMATION: Exam: XR Cervical Spine, 2 or 3 Views Exam date and time: 07/17/2020 7:16 PM Age: 74 years old Clinical indication: Condition or disease; Other: Known c3 FX; Additional info: Exam done in stretcher, ap sitting, 90* upright per [facility] TECHNIQUE: Imaging protocol: XR of the cervical spine, 2 or 3 views. COMPARISON: CT HEAD CERV SPINE FACIAL WO 07/17/2020 2:38 PM FINDINGS: Bones/joints: There appears to be an oblique fracture through the inferior aspect of the C3 vertebra extending to the anterior cortex, where there is approximately 2-3 mm displacement. No other fractures are identified. There are no cervical subluxations. There is multilevel moderate facet arthrosis throughout the mid and lower cervical spine as well as multilevel mild spondylosis. Findings suggest mild broad-based cervical levoscoliosis. Soft tissues: Unremarkable. Other findings: There is bilateral carotid calcification. IMPRESSION: 1. Minimally displaced fracture of the C3 vertebra, as described above. Please refer to report of CT of the cervical spine of the same day for better evaluation. 2. No subluxations identified. 3. Degenerative changes as described above. Dictated and Authenticated by: Colin Mock MD. Ordering:BJ Pool MD
[2020-07-17] MEDS: Docusate Sodium 100 MG CAP PO (22:01)
[2020-07-17] MEDS: chlordiazePOXIDE 25 MG CAP PO (22:02)
[2020-07-17] MEDS: Carvedilol 6.25 MG TAB 3.125 MG PO (22:02)
[2020-07-17] MEDS: Budesonide/Formoterol 160/4.5 6 GM 60 PUFF INH IH (22:08)
[2020-07-18] VITALS (8 sets, daily range): BP systolic 117–160; BP diastolic 52–78; PULSE 65–83; RESP 16–21; TEMP 36.3–36.8; O2SAT 92–96
[2020-07-18] MEDS: Normal Saline 1,000 ML 75 ML IV ×2 (00:48→14:25)
[2020-07-18] MEDS: Docusate Sodium 100 MG CAP PO (07:49)
[2020-07-18] MEDS: Cyanocobalamin 500 MCG TAB 1000 MCG PO (07:49)
[2020-07-18] MEDS: Pantoprazole 40 MG TABCR PO (07:49)
[2020-07-18] MEDS: Furosemide 20 MG TAB PO (07:49)
[2020-07-18] MEDS: Carvedilol 6.25 MG TAB 3.125 MG PO (07:50)
[2020-07-18] MEDS: chlordiazePOXIDE 25 MG CAP PO (07:50)
[2020-07-18] MEDS: Thiamine 100 MG TAB PO (07:50)
[2020-07-18] MEDS: Budesonide/Formoterol 160/4.5 6 GM 60 PUFF INH IH (07:54)
--- NOTE | 2020-07-18 09:00 | W.PM.PROGNOT ---
Date of Service Date of service: 07/18/20 Time of Service: 09:00 Assessment and Plan Assessment and plan (1) Hip pain: Status: Acute Assessment and plan: no fracture per Orthopedics, will continue pain management, PT/OT (2) C3 cervical fracture: Status: Acute Assessment and plan: stable, discussed with [facility] who recommends ridge collar. (3) Alcohol use disorder: Status: Chronic Assessment and plan: somnolent this morning, will discontinue librium, scoring 2 on ciwa, continue protocol with prn ativan dosing for now. continue to closely monitor on ciwa thiamine daily (4) Chronic obstructive lung disease: Status: Chronic Assessment and plan: respiratory status stable, continue inhalers Qualifiers: COPD type: unspecified COPD Qualified Code(s): J44.9 - Chronic obstructive pulmonary disease, unspecified (5) Gastroesophageal reflux disease: Status: Chronic Assessment and plan: continue pantoprazole daily (6) Hypertension: Status: Chronic Assessment and plan: blood pressure stable. continue home medication and monitor Qualifiers: Hypertension type: essential hypertension Qualified Code(s): I10 - Essential (primary) hypertension (7) Tobacco use disorder: Status: Chronic Assessment and plan: nicotine replacement while hospitalized (8) DVT prophylaxis: Status: Acute Assessment and plan: teds, enoxaparin (9) Discharge planning issues: Status: Acute Subjective Subjective Interval history since last seen: patient is somnolent this morning, not tolerating PO well, coughing and choking. Exam Const General: cooperative, no acute distress, disheveled, frail appearing and ill appearing chronically Nutritional Appearance: malnourished Orientation: alert, awake and not oriented x3 HENMT Head: normal to inspection and signs of trauma (old dried blood and bruising to right forehead) Ears: hearing grossly normal bilaterally, external ears normal and TM's normal bilaterally General nose exam: external nose normal Face and sinus: normal facial exam Mouth: moist mucous membranes abnormal Throat: posterior oropharynx normal Eyes General: appearance normal, both eyes and all related structures Eyelids: eyelids normal Pupils: PERRL EOM: EOM intact bilaterally Neck Neck: normal visual inspection (wearing a ridge c collar) Chest Chest: normal inspection of the chest Resp Effort & Inspection: normal respiratory effort and able to speak in complete sentences Auscultation: diminished lung sounds (bilateral bases) Cardio Rate: regular rate Rhythm: regular rhythm GI Inspection: normal to inspection Palpation: soft, not firm, no guarding, no hepatosplenomegaly, hernia (large abdominal, soft, non tender), no masses and nontender Auscultation: normal bowel sounds Back/Spine/Pelvis Back: no CVA tenderness Skin General skin exam: ecchymosis (scattered, skin tears, bruising. all various stages of healing) Neuro General: patient alert and patient awake Speech: speech normal Motor: muscle tone normal throughout Sensory Exam: no sensory deficits noted Extrem General: normal to inspection, full ROM and edema Laterality: bilateral (lower with chronic discoloration consistent with venous stasis) Psych Appearance: grossly normal Mental Status: mental status grossly normal Speech and Movement: speech and movement normal Affect: normal affect Thought Process: normal Objective Last Vital Signs Temp 36.3 C L 07/18/20 08:19 Pulse 83 07/18/20 08:19 Resp 16 07/18/20 08:19 BP 148/74 H 07/18/20 08:19 Pulse Ox 96 07/18/20 08:24 Laboratory Results - last 24 hr 07/17/20 07/17/20 07/17/20 13:35 13:35 13:35 WBC 8.83 RBC 3.01 L Hgb 9.7 L Hct 29.8 L MCV 99.0 H MCH 32.2 MCHC 32.6 RDW 14.6 H Plt Count 317 MPV 8.3 Immature Gran % 0.5 Neutrophils % 75.1 Lymphocytes % 10.8 Monocytes % 11.6 Eosinophils % 1.7 Basophils % 0.3 Nucleated RBC % 0 Absolute Neutrophils 6.64 Absolute Lymphocytes 0.95 L Absolute Monocytes 1.02 H Absolute Eosinophils 0.15 Absolute Basophils 0.03 PT 11.1 H INR 1.1 APTT 25.3 Sodium 129 L Potassium 3.8 Chloride 96 L Carbon Dioxide 28.9 Anion Gap 4.1 BUN 7 Creatinine 0.67 L Estimated GFR/1.73 m2 >= 60.00 Glucose 97 Calcium 8.3 L Magnesium 1.9 Total Bilirubin 0.6 AST 33 ALT 24 Alkaline Phosphatase 177 H Troponin I < 0.05 Total Protein 6.7 Albumin 3.0 L Urine Color Urine Clarity Urine pH Ur Specific [place] Urine Protein Urine Ketones Urine Blood Urine Nitrite Urine Bilirubin Urine Urobilinogen Ur Leukocyte Esterase Urine Glucose Urine Opiates Screen Urine Methadone Screen Ur Barbiturates Screen Ur Tricyclics Screen Ur Amphetamines Screen U Benzodiazepines Scrn Urine Cocaine Screen Ur THC Screen Ethyl Alcohol < 3.0 Patient ABO/Rh Antibody Screen 07/17/20 07/17/20 07/17/20 13:35 13:43 13:50 WBC RBC Hgb Hct MCV MCH MCHC RDW Plt Count MPV Immature Gran % Neutrophils % Lymphocytes % Monocytes % Eosinophils % Basophils % Nucleated RBC % Absolute Neutrophils Absolute Lymphocytes Absolute Monocytes Absolute Eosinophils Absolute Basophils PT INR APTT Sodium Potassium Chloride Carbon Dioxide Anion Gap BUN Creatinine Estimated GFR/1.73 m2 Glucose Calcium Magnesium Total Bilirubin AST ALT Alkaline Phosphatase Troponin I Total Protein Albumin Urine Color Yellow Urine Clarity Clear Urine pH 7.0 Ur Specific [place] 1.015 Urine Protein Negative Urine Ketones Negative Urine Blood Negative Urine Nitrite Negative Urine Bilirubin Negative Urine Urobilinogen 0.2 Ur Leukocyte Esterase Negative Urine Glucose Negative Urine Opiates Screen Negative Urine Methadone Screen Negative Ur Barbiturates Screen Negative Ur Tricyclics Screen Negative Ur Amphetamines Screen Negative U Benzodiazepines Scrn Negative Urine Cocaine Screen Negative Ur THC Screen Negative Ethyl Alcohol Patient ABO/Rh A Positive Antibody Screen Negative
--- NOTE | 2020-07-18 10:20 | PDOC.CMIN ---
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 Hale Derm, Chronic obstructive lung disease (03/15/13) - 01/2007 PFTs: FEV1 90%; 06/2019 PFTs: FEV1/FVC 56% --> severe obstructive airways disease with no bronchodilator response, Dysphagia - 10/17/2018 EGD ([facility]): Smalls's & interval resolution of esophageal varices seen on previous EGD (see Smalls's dx comments for details); 06/06/2019 Barium Swallow: some dysmotility & aspiration --> referred to Speech Therapy - 04/12/20 [facility] Esophageal Manometry; 05/17/2020 EGD: Grade I esophageal varices, duodenal erosions w/o bleeding, no obstructive cause for dysphagia, Esophageal varices - 06/22/2017 EGD (Dr. Cheney): grade 1 w/ stigmata of bleeding; 10/17/2018 EGD ([facility]): no evidence of esophageal or gastric varices on carvedilol 6.25 mg BID, Family history of malignant melanoma - ov note dated 05/10/20-Dr. Hale, Gastroesophageal reflux disease (03/15/13) - surgery 08/1990, GERD (gastroesophageal reflux disease), Hepatic cirrhosis (01/14/18) - [facility] GI - 02/24/2018 Fibroscan: stage 4 liver fibrosis, consistent with cirrhosis with possible portal HTN. 06/22/2018 EGD (Dr. 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 11/2018 labs: good response to high potency statin, continue, Hypertension (08/01/14), Incisional hernia, without obstruction or gangrene (01/17/18) - [facility] GI consult, Incontinence of feces, Malignant neoplasm of prostate, Rectosphincteric dyssynergia - Manifested as fecal incontinence and constipation; resolved with daily fiber supplementation,. Restless leg syndrome, Rotator cuff syndrome (03/24/13) - S/p B/L repair,. Seborrheic keratosis (02/18/17) - Dr. Hale Derm, Sigmoid diverticulosis (02/01/18) - 02/01/2018 colonoscopy, Squamous cell carcinoma - Face, and. Tobacco use disorder - 1.5 PPD. Surgical History . Colonoscopy - MAC (02/01/18). H/O colonoscopy. 05/17/20 at [facility] - no need for further to have any further colonscopy per report. H/O endoscopy. 05/17/20 [facility]. History of esophagogastroduodenoscopy (EGD) (06/22/18). dr cheney, grade I esophageal varices. Left shoulder (09/24/07). Marci Fundoplication (03/24/85). Prostatectomy (~05/2007). Repair of incision from Marci fundoplication (03/24/87). right shoulder (03/24/00) PREVIOUS FUNCTIONAL STATUS/SOCIAL/FAMILY SUPPORTS:: David, who goes by Severino, lives alone in [facility] [place]. 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 He is and has two adult children - a son in [place] and a daughter in [place]. He shares he has three grandchildren in [place], the youngest of which he has yet to meet. He states the last time he was in [place] was July of 2019 and says as much as he misses his family, he would not dare to travel currently due to Covid-19. Severino has several friends in the community and has a nephew who lives in [place], [place]. He spends his time playing video games, corresponding with family and friends via email, watching television, and driving on backroads a couple of times a day. CURRENT FUNCTIONAL STATUS:: Severino was evaluated by PT as a current max 2 assist with recommendations for SNF placement upon discharge. He scored low on the CIWA score today, CM attempted to connect David without success. CM will continue to attempt to contact Severino at this time. ADVANCE DIRECTIVES:: Completed last admission, later revoked by patient to remain full code. Has patient been provided with info about the portal/API?: Yes Did the patient sign up for the portal?: No CODE STATUS:: Full Code INSURANCE COVERAGE / FINANCIAL ISSUES:: Blue Cross Blue Shield and Medicare. CURRENT HOME/COMMUNITY SERVICES/EQUIPMENT:: Severino recently returned home from [facility] rehab center. The center reports this was due not having a television available in his room after leaving the quarantine unit after fourteen days. Undetermined services at this time; CM to confirm service and equipment. Previously: had [facility] five days a week. He also pays someone to come and clean his apartment periodically. Severino belongs to the [employer] in [facility]. With respect to medical equipment, he reports he keeps a cane in his car and also has one at home in his kitchen. He additionally has a raised toilet seat. PRIMARY CARE PHYSICIAN:: Stephie Jones POTENTIAL DISCHARGE NEEDS:: SNF coordination; remains under skilled stay at [facility]; per admission personelle they are willing to re-admit Severino when medically ready if he is agreeable. He will not require a three night stay. PATIENT/FAMILY EDUCATION NEEDS:: Review discharge instructions, discuss Ask Me Three. ANTICIPATED BARRIERS TO DISCHARGE:: None identified. TRANSPORTATION:: TBD by disposition. PLAN:: Severino continues to be closely monitored, anticipate with his agreement that he will transfer back to [facility] when ready per MD. He would then transport via the facility's W/C van. CM continues to follow.
[2020-07-18] MEDS: Nicotine 14 MG/24 HR PATCH TD (10:45)
[2020-07-18] MEDS: Enoxaparin 40 MG/0.4 ML SYR SC (10:50)
--- NOTE | 2020-07-18 11:30 | PT.INIE ---
Date of service: 07/18/20 Time of Service: 09:56 PT Notes Visit Reasons: HIP CONTUSION,CERVICAL SPINE FRACTURE,ALCOHOL WITH Physical Therapy Inpatient Initial Evaluation Date: 07/18/2020 Referring Doctor: Hamzah Levine MD PT Orders: PT CONSULT: Eval/treat Precautions: Fall. Standard. Cervical collar on at all times. WBAT in BUE/LE. Patient Profile/Admitting Diagnosis: David is a 74-year-old male who presented to the ED on 07/17/2020 with chief complaints of left hip pain status post fall at home. He is also status post ORIF on his fifth week postoperatively. Patient is negative for left periprosthetic fracture but has an incidental finding of an oblique mildly displaced vertebral body fracture of C3 for which the cervical collar was ordered to be worn at all times. 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 Geoffrey Dumont Alcohol use disorder Smalls's esophagus 10/17/2018 EGD ([facility]): esophageal mucosal changes classified as Smalls's stage C0-M1 per [place] criteria (also showed resolution of esophageal varices on carvedilol 6.25 mg BID) Basal cell carcinoma (BCC) Face Bilateral lower extremity edema (01/14/18) Related to cirrhosis BPH w urinary obs/LUTS (03/10/13) Al hemangioma (02/18/17) Dr. Geoffrey Dumont Chronic obstructive lung disease (03/15/13) 01/2007 PFTs: FEV1 90%; 06/2019 PFTs: FEV1/FVC 56% --> severe obstructive airways disease with no bronchodilator response Dysphagia 10/17/2018 EGD ([facility]): Smalls's & interval resolution of esophageal varices seen on previous EGD (see Smalls's dx comments for details); 06/06/2019 Barium Swallow: some dysmotility & aspiration --> referred to Speech Therapy 04/12/20 [facility] Esophageal Manometry; 05/17/2020 EGD: Grade I esophageal varices, duodenal erosions w/o bleeding, no obstructive cause for dysphagia Esophageal varices 06/22/2017 EGD (Dr. Cheney): grade 1 w/ stigmata of bleeding; 10/17/2018 EGD ([facility]): no evidence of esophageal or gastric varices on carvedilol 6.25 mg BID Family history of malignant melanoma ov note dated 05/10/20-Dr. Hale Gastroesophageal reflux disease (03/15/13) surgery 08/1990 GERD (gastroesophageal reflux disease) Hepatic cirrhosis (01/14/18) [facility] GI 02/24/2018 Fibroscan: stage 4 liver fibrosis, consistent with cirrhosis with possible portal HTN 06/22/2018 EGD (Dr. 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 Hale Derm Sigmoid diverticulosis (02/01/18) 02/01/2018 colonoscopy Squamous cell carcinoma Face Tobacco use disorder 1.5 PPD Surgical History Colonoscopy - MAC (02/01/18) H/O colonoscopy 05/17/20 at [facility] - no need for further to have any further colonscopy per report H/O endoscopy 05/17/20 [facility] History of esophagogastroduodenoscopy (EGD) (06/22/18) Dr Cheney, grade I esophageal varices Left shoulder (09/24/07) Marci Fundoplication (03/24/85) Prostatectomy (~05/2007) Repair of incision from Marci fundoplication (03/24/87) right shoulder (03/24/00) Social History/Home Situation: Lives alone in a private home with 2 steps to enter through his garage that leads onto a deck with a grab bar. There is another step from the deck into his home with a grab bar. Has a multilevel home but reports all of his essentials are on the main floor of the house. Equipment Owned/DME: [employer] Subjective: Requires encouragement to participate. Movement limited by pain. Patient complains of significant left hip and thigh pain that is aggravated by movement. Does not like the collar bur understands why it is on. Objective: General Observation: Supine in bed. Cervical collar on. IV in L UE. Mental Status: Hematoma seen in R frontotemporal area. mild swelling seen in L hip and thigh. Trunk anteroflexed. Pain: 8/10 pain in L hip and thigh ROM: Right Upper Extremity: Shoulder Flexion WFL. Shoulder abduction WFL. Elbow flexion WFL. Wrist flexion WFL. Opening and closing of hand WFL. Left Upper Extremity: Shoulder Flexion WFL. Shoulder abduction WFL. Elbow flexion WFL. Wrist flexion WFL. Opening and closing of hand WFL. Right Lower Extremity: Hip abduction WFL. Knee flexion WFL. Ankle dorsiflexion WFL. Ankle plantarflexion WFL. Left Lower Extremity: Hip flexion NT. Hip abduction NT. Knee flexion NT. Ankle dorsiflexion NT. Ankle plantarflexion WFL. L hip and knee NT as patient is very much anxious about moving L LE due to pain level.Hip flexion WFL. Strength: Right Upper Extremity: Shoulder flexors 4-/5. Shoulder abductors 4-/5. Elbow flexors 4-/5. Elbow extensors 4-/5. Commercial [employer] Underwriter strong. Left Upper Extremity: Shoulder flexors 4-/5. Shoulder abductors 4-/5. Elbow flexors 4-/5. Elbow extensors 4-/5. Commercial [employer] Underwriter strong. Right Lower Extremity: Hip flexors 3+/5. Hip abductors 3+/5. Knee flexors 3+/5. Knee extensors 3+/5. Ankle dorsiflexors 4-/5. Ankle plantarflexors 4-/5. Left Lower Extremity: NT, patient refused due tompain level Sensation: Intact as to pain and pressure on bilateral lower extremities. Bed Mobility/Transfers: Supine to sit minimal assist with HOB at 30 degrees Sit to stand minimal assist Stand to sit minimal assist of 2. LNApanfilo Burks and Sofía assisting for safety. Bed to chair minimal assist of 2. LNAs Kimmie and Sofía assisting for safety. Chair to bed minimal assist of 2. LNAs Kimmie and Sofía assisting for safety. Gait: Moderate to maximal verbal cueing provided for safe strategies in completing 3 small steps +1 turn +2-3 step backs using the front wheeled walker with WBAT on BUE/LE requiring minimal assist of 2 to walk up from bedside to transfer to bedside reclining chair patient fearful of falling. Assistance with walker propulsion provided as patient seems to be mildly confused and unable to fully follow instrcutions. WOuld not open eyes fully during the activity. Complained of 8/2 10 pain in the left hip and thigh. Balance: Static Sitting: Normal Dynamic Sitting: Good Static Standing: Poor poor Dynamic Standing: Special Tests: Mobility Limitations Standardized Measure [facility] AM-PAC 6 clicks Basic Mobility Inpatient Short Form: Raw Score: 11 CMS Score: 73% deficit Informed Consent/Education: Patient instructed in purpose of PT consult and plan of care. Assessment: David demonstrates significant functional mobility decline and requires assist of 2 for all mobility ADL performance using a front wheeled walker, difficulty with walking, generalized weakness, and increased risk for falls due to admitting diagnosis and comorbidities. Patient presents with clinical signs and symptoms consistent with current/admitting diagnoses that have resulted to mobility limitations, gait instability, generalized weakness, and impairment of motor control as demonstrated by the following impairment level findings: 1. Decreased strength to BUE/LE major muscle groups 2. Impaired standing balance 3. Impaired activity tolerance 4. Limitation of joint range of motion in L LE 5. Pain in L LE Impairments are contributing to the following functional limitations: 1. Dependent bed mobility skills 2. Increased dependence with transfers 3. Inability to safely ambulate without assistive device and physical assistance 4. Increase completion time for mobility ADL performance 5. Increased fall risk 6. Inability to negotiate steps alone safely Patient is assessed as a 37512 high complexity based on the following: History: 74-year-old male with impairment level findings, functional limitations, and past medical history as indicated above Examination: Demonstrable impairment in strength, balance, and mobility level with underlying impairments and functional limitations as documented above Presentation:Evolving Decision Makin high complexity Goals: Goals X1 week 1. Supine-Sit independent 2. Sit-Supine independent 3. Sit-Stand independent 4. Stand-Sit independent 5. Bed-Chair independent 6. Chair-Bed independent 7. Independent gait on level surface with use of least restrictive device for at least 300 feet without report of pain nor dyspnea 8. Independent stair negotiation while holding onto bilateral rails for at least 10 steps without report of pain nor dyspnea 9. Independent with home exercise program 10. Good static and dynamic standing balance/tolerance Plan of Care/Treatment Plan: 1-2x/day, 7 days/week x 1 week. Plan of care has been reviewed with the DESK ATTENDANT providing the service under Physical Therapy direction. Initiate Physical Therapy intervention for strengthening, bed mobility, transfers, gait, stairs, balance training, use of assistive device. DISCHARGE RECOMMENDATIONS: Patient will benefit from [facility] facility placement for continued skilled physical therapy services in order to progress mobility level, strength, and balance in preparation for a safe discharge to home. TREATMENT CODE/TIME: 29041 x 25 minutes, 73623 x 10 minutes beginning at 11:30 AM. Thank you for the opportunity to participate in the care of this patient. Brittnee Thornton PT, DPT, CLT [facility] [place], [place]
[2020-07-18] MEDS: Polyethylene Glycol 3350 17 GM PACKET PO (12:40)
[2020-07-18] MEDS: LORazepam 1 MG TAB PO/SL (12:45)
[2020-07-18] MEDS: Bisacodyl 10 MG SUPP PR (14:50)
--- NOTE | 2020-07-18 15:21 | PT.INTREAT ---
Date of service: 07/18/20 Time of Service: 14:00 PT Notes Visit Reasons: HIP CONTUSION,CERVICAL SPINE FRACTURE,ALCOHOL WITH Inpatient Physical Therapy Treatment Note [facility] Date: 07/18/2020 PRECAUTIONS: Fall, cervical collar on at all times, WBAT B LE and B UE SUBJECTIVE: Patient does not arouse easily, although indicates pain in left hip with movement OBJECTIVE: Patient kept eyes closed throughout most of session PAIN: Patient pain in L hip with all movement BED MOBILITY/TRANSFERS Rolling L/R: Max a x2 Sit?supine: Max a x3 with HOB flat Sit-stand: Max a x3 Stand-sit: Max a x3 Chair-bed: Max a x3 GAIT Assistive Device: No assistive device Weight bearing: WBAT B LE and B UE Assist: Max a x3 Distance: Stand?pivot transfer chair?bed Deviation: Complaint of L hip pain THEREX: Performed PROM to B LE, including ankle pumps, heel slides, hip abduction, and SLR. Patient was able to assist with heel slide exercise on R. ASSESSMENT: Patient tolerated session with complaint of increased L hip pain with all movement and activity. Patient required max assist x3 with all bed mobility and transfers this afternoon. Patient would benefit from continued bed mobility and transfer training as well as global strengthening for improved mobility and activity tolerance. PLAN: Continue with global strengthening as well as bed mobility and transfer training TREATMENT CODE/TIME: 30 minutes; 32824, 11950
--- NOTE | 2020-07-18 17:20 | PHA.REVIEW ---
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1) 07/17/20 13:35 Creatinine 0.67 mg/dL (0.70-1.30) L 07/17/20 13:35 DVT Prohphylaxis: Reviewed Medications: Enoxaparin - Opiate Usage Evaluate Pain Scale/Pains Meds: Reviewed Scheduled Bowel Reg ordered if on Opiates?: No - Relevant Labs Sodium 129 mmol/L (136-145) L 07/17/20 13:35 Potassium 3.8 mmol/L (3.5-5.1) 07/17/20 13:35 Chloride 96 mmol/L (98-107) L 07/17/20 13:35 Magnesium 1.9 mg/dL (1.8-2.4) 07/17/20 13:35 Electrolytes, C-Reactive P, ESR: Reviewed - DM Control DM Control: Glucose 97 mg/dL (74-106) 07/17/20 13:35 Insulin Dosing: Reviewed - Heart Failure/DE Heart Failure/DE: Troponin I < 0.05 ng/mL (<0.06) 07/17/20 13:35 EF%, ANUJ's, B-Blockers, Diuretics: Reviewed - BP Control BP Control: Blood Pressure 128/64 Blood Pressure 160/72 Blood Pressure 148/74 If elevated: Reviewed List meds needing interventions: COREG, LASIX - Qtc Review If Elevated: Reviewed (465) - IV to PO Switch IV Medications: Reviewed - Home Meds Home Med List reviewed: Reviewed (all ordered -- of note: furosemide and lisinopril were held on last admission due to low bp, dehydration with rec for PCP to resume when appopriate) - Current meds Current Medication Order Review: Reviewed
[2020-07-18] MEDS: traMADol 50 MG TAB PO (23:52)
[2020-07-19] VITALS (7 sets, daily range): BP systolic 148–182; BP diastolic 69–90; PULSE 68–83; RESP 17–20; TEMP 36.5–36.9; O2SAT 90–96
[2020-07-19] MEDS: Normal Saline 1,000 ML 75 ML IV (03:16)
[2020-07-19] MEDS: Nicotine 14 MG/24 HR PATCH TD (07:47)
[2020-07-19] MEDS: Enoxaparin 40 MG/0.4 ML SYR SC (07:47)
[2020-07-19] MEDS: Polyethylene Glycol 3350 17 GM PACKET PO (07:48)
[2020-07-19] MEDS: Cyanocobalamin 500 MCG TAB 1000 MCG PO (07:48)
[2020-07-19] MEDS: Docusate Sodium 100 MG CAP PO (07:48)
[2020-07-19] MEDS: Furosemide 20 MG TAB PO (07:48)
[2020-07-19] MEDS: Thiamine 100 MG TAB PO (07:49)
[2020-07-19] MEDS: Carvedilol 6.25 MG TAB 3.125 MG PO (07:49)
[2020-07-19] MEDS: Pantoprazole 40 MG TABCR PO (07:49)
[2020-07-19] MEDS: Budesonide/Formoterol 160/4.5 6 GM 60 PUFF INH IH ×2 (08:01→20:33)
[2020-07-19 09:34] LABS: COVID-19 RT-PCR UVMMC Result Negative (Negative)
[2020-07-19] MEDS: Cholecalciferol (Vitamin D3) 1,000 UNIT TAB 1000 UNITS PO (09:34)
--- NOTE | 2020-07-19 10:49 | W.PM.PROGNOT ---
Date of Service Date of service: 07/19/20 Time of Service: 10:49 Assessment and Plan Assessment and plan (1) Hip pain: Status: Acute Assessment and plan: no fracture per Orthopedics, will continue pain management, PT/OT (2) C3 cervical fracture: Status: Acute Assessment and plan: stable, discussed [facility] [place] ridge collar. no neurologic deficit or pain (3) Alcohol use disorder: Status: Chronic Assessment and plan: no signs of withdrawal, can d/c ciwa thiamine daily (4) Chronic obstructive lung disease: Status: Chronic Assessment and plan: respiratory status stable, continue inhalers add incentive spirometry while hospitalized Qualifiers: COPD type: unspecified COPD Qualified Code(s): J44.9 - Chronic obstructive pulmonary disease, unspecified (5) Gastroesophageal reflux disease: Status: Chronic Assessment and plan: continue pantoprazole daily (6) Hypertension: Status: Chronic Assessment and plan: blood pressure stable. continue home medication and monitor Qualifiers: Hypertension type: essential hypertension Qualified Code(s): I10 - Essential (primary) hypertension (7) Tobacco use disorder: Status: Chronic Assessment and plan: nicotine replacement while hospitalized (8) DVT prophylaxis: Status: Acute Assessment and plan: teds, enoxaparin (9) Discharge planning issues: Status: Acute Assessment and plan: case management following, will benefit from ongoing PT/OT and nursing care. [facility]hab referrals placed and pending. discussed with DR Doll who is in agreement Subjective Subjective Patient reports: no new complaints Interval history since last seen: max CIWA score 2 overnight. Exam Const General: cooperative, no acute distress, disheveled, frail appearing and ill appearing chronically Nutritional Appearance: malnourished Orientation: alert, awake and not oriented x3 HENMT Head: normal to inspection and signs of trauma (old dried blood and bruising to right forehead) Ears: hearing grossly normal bilaterally, external ears normal and TM's normal bilaterally General nose exam: external nose normal Face and sinus: normal facial exam Mouth: moist mucous membranes abnormal Throat: posterior oropharynx normal Eyes General: appearance normal, both eyes and all related structures Eyelids: eyelids normal Pupils: PERRL EOM: EOM intact bilaterally Neck Neck: normal visual inspection (wearing a ridge c collar) Chest Chest: normal inspection of the chest Resp Effort & Inspection: normal respiratory effort and able to speak in complete sentences Auscultation: diminished lung sounds (bilateral bases) Cardio Rate: regular rate Rhythm: regular rhythm GI Inspection: normal to inspection Palpation: soft, not firm, no guarding, no hepatosplenomegaly, hernia (large abdominal, soft, non tender), no masses and nontender Auscultation: normal bowel sounds Back/Spine/Pelvis Back: no CVA tenderness Skin General skin exam: ecchymosis (scattered, skin tears, bruising. all various stages of healing) Neuro General: patient alert and patient awake Speech: speech normal Motor: muscle tone normal throughout Sensory Exam: no sensory deficits noted Extrem General: normal to inspection, full ROM and edema Laterality: bilateral (lower with chronic discoloration consistent with venous stasis) Psych Appearance: grossly normal Mental Status: mental status grossly normal Speech and Movement: speech and movement normal Affect: normal affect Thought Process: normal Objective Last Vital Signs Temp 36.5 C 07/19/20 07:07 Pulse 76 07/19/20 07:07 Resp 18 07/19/20 07:07 BP 159/83 H 07/19/20 07:07 Pulse Ox 94 07/19/20 07:45 Laboratory Results - last 24 hr 07/17/20 18:34 COVID-19 PCR Negative Nasopharyn COVID-19 PCR Not Applicable Ref Test Perform Site [facility] lab
--- NOTE | 2020-07-19 15:40 | PT.INTREAT ---
Date of service: 07/19/20 Time of Service: 10:25 PT Notes Visit Reasons: HIP CONTUSION,CERVICAL SPINE FRACTURE,ALCOHOL WITH Inpatient Physical Therapy [facility] Date: 07/19/2020 PRECAUTIONS: Fall, cervical collar on at all times, WBAT B LE and B UE SUBJECTIVE: Patient reports that he is feeling much better today, although he complains of continued L hip pain with movement. OBJECTIVE: PAIN: Patient pain in L hip with transfers and bed mobility BED MOBILITY/TRANSFERS Supine?Sit: Min a with HOB at 50 degrees Sit?supine: S with HOB flat utilizing leg [employer] on L Sit-stand: Min a x2 in a.m.; CGA x2 in p.m. Stand-sit: Min a x2 in a.m.; CGA x2 in p.m. Bed?chair: Min a x2 Chair-bed: CGA x2 GAIT Assistive Device: FWW Weight bearing: WBAT B LE and B UE Assist: Min a x2 in a.m.; CGA x2 in p.m. Distance: 10 steps in a.m.; 6' in p.m. Deviation: Complaint of B UE fatigue, cueing to keep eyes open in a.m. THEREX: Patient was instructed in several lower extremity strengthening exercises, while in long sitting position, as per flow sheet. Patient requires assist with heel slide exercises on L. Ice pack to L hip in p.m. ASSESSMENT: Patient tolerated session with complaint of increased L hip pain with transfers and bed mobility. Patient required decreased assist with transfers, bed mobility, and gait training today compared to yesterday. Patient would benefit from continued bed mobility and transfer training as well as global strengthening for improved mobility and activity tolerance. PLAN: Continue with global strengthening as well as bed mobility and transfer training TREATMENT CODE/TIME: Session 1: 35 minutes; [id number], [id number] Session 2: 25 minutes; [id number] x2
--- NOTE | 2020-07-19 16:10 | CMPROGNOTE_ITS ---
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 He remains agreeable to transferring to SNF when ready per [place]. In the event [facility] is closed to admissions when David is medically stable, anticipate he will transition to [facility] until the facility is able to accommodate him. He shared no additional concerns at this time except feeling that he's starting back at square one. He verbalized feeling motivated to progress in able to return home and have his daughter stay with him. CM continues to follow. A: 74 year old male admitted to [facility] on 07/19/20 P: David will discharge to [id number] for short term rehab prior to returning home. [facility] is currently closed to admissions. Severino shared that after his short term rehab stay, his daughter would be returning to [place] to stay with him in his home until he is independent. Per PT he required less assistance with mobility and transfers compared to yesterday. Severino will remain at [facility] until [facility] can accept him for admission.
--- NOTE | 2020-07-19 16:10 | PDOC.CMPRO ---
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 He remains agreeable to transferring to SNF when ready per MD. In the event [facility] is closed to admissions when David is medically stable, anticipate he will transition to [facility] until the facility is able to accommodate him. He shared no additional concerns at this time except feeling that he's starting back at square one. He verbalized feeling motivated to progress in able to return home and have his daughter stay with him. CM continues to follow. A: 74 year old male admitted to [facility] on 07/19/20 P: David will discharge to [id number] for short term rehab prior to returning home. [facility] is currently closed to admissions. Severino shared that after his short term rehab stay, his daughter would be returning to [place] to stay with him in his home until he is independent. Per PT he required less assistance with mobility and transfers compared to yesterday. Severino will remain at [facility] until [facility] can accept him for admission.
--- NOTE | 2020-07-19 16:21 | CHAPLAIN ---
Severino wasn't sure he remembered meeting me during his last hospitalization, and we talked about how many staff members he has met between [facility] and [facility]. Severino is wearing a neckbrace now and he said since he fell he has struggled more for words, and feels like he is stuttering. He reminded me about his son in [place] and a daughter in [place].He said his daughter quarantined at home for 14 days and then drove straight through to stay with Severino. She'll be leaving tomorrow. I will continue to visit.
[2020-07-19] MEDS: Carvedilol 3.125 MG TAB PO (20:33)
[2020-07-20] VITALS (7 sets, daily range): BP systolic 103–149; BP diastolic 58–82; PULSE 72–88; RESP 17–19; TEMP 36.1–36.7; O2SAT 93–97
[2020-07-20] MEDS: Nicotine 14 MG/24 HR PATCH TD (07:53)
[2020-07-20] MEDS: Carvedilol 3.125 MG TAB PO ×2 (07:54→19:21)
[2020-07-20] MEDS: Cholecalciferol (Vitamin D3) 1,000 UNIT TAB 1000 UNITS PO (07:54)
[2020-07-20] MEDS: Thiamine 100 MG TAB PO (07:54)
[2020-07-20] MEDS: Cyanocobalamin 500 MCG TAB 1000 MCG PO (07:54)
[2020-07-20] MEDS: Furosemide 20 MG TAB PO (07:54)
[2020-07-20] MEDS: Pantoprazole 40 MG TABCR PO (07:55)
[2020-07-20] MEDS: Docusate Sodium 100 MG CAP PO (07:55)
[2020-07-20] MEDS: Enoxaparin 40 MG/0.4 ML SYR SC (07:55)
[2020-07-20] MEDS: Budesonide/Formoterol 160/4.5 6 GM 60 PUFF INH IH ×2 (08:12→19:21)
[2020-07-20 08:33] LABS: Abs Immature Grans 0.04 10^3/uL (0.0-0.06); Absolute Basophil Count 0.04 10^3/uL (0.0-0.2); Absolute Eosinophil Count 0.21 10^3/uL (0.0-0.7); Absolute Lymphocyte Count 1.04 10^3/uL (1.2-3.4); Absolute Monocyte Count 0.93 10^3/uL (0.1-0.8); Absolute Neutrophil Count 6.59 10^3/uL (1.2-6.7); Basophils % 0.5; Eosinophils % 2.4; HCT 31.9 % (40.0-50.0); HGB 10.1 g/dL (13.5-17.5); Immature Grans % 0.5; Lymphocytes % 11.8; MCH 31.7 pg (27.0-33.0); MCHC 31.7 % (32.0-36.0); MPV 8.2 fL (8.0-11.0); Monocytes % 10.5; Neutrophils % 74.3; Nucleated RBC 0 %; Platelet Count 302 10^3/uL (130-400); RBC 3.19 10^6/uL (4.36-5.78); RDW 14.6 % (11.8-14.1); RDW-SD 53.6 fL; WBC 8.85 10^3/uL (4.4-10.8)
--- NOTE | 2020-07-20 08:35 | CMPROGNOTE_ITS ---
- If Service Date Differs Date of service: 07/20/20 Time of Service: 08:35 Care Management Progress Note S/O: Severino is asleep in his chair when CM comes to meet with him. He is easily aroused, is pleasant and talkative. He shares he called [facility] yesterday, hoping they will accept him for placement. He was at [facility] last month after fracturing his hip and states they took really good care of him. A request was made today for an orthopedic consult. Severino met with Dr. Sarabia, who recommended ambulation with a walker and outpatient follow up with the [facility] following discharge. CM will continue to follow. A: Severino is a 74 year old male admitted to [facility] on 07/17/20 for hip contusion and cervical spine fracture. P: Plan remains the same. Severino will discharge to [id number] for short term rehab prior to returning home. [facility] is currently closed to admissions. Severino shared that after his short term rehab stay, his daughter would be returning to [place] to stay with him in his home until he is independent. Per PT he required less assistance with mobility and transfers on Wednesday compared to prior. Severino will remain at [facility] until [facility] can accept him for admission. CM will continue to follow.
[2020-07-20 08:42] LABS: Anion Gap 4.4 mmol/L (3-11); BUN 6 mg/dL (7-18); CO2 27.6 mmol/L (21.0-32.0); CREATININE 0.66 mg/dL (0.70-1.30); Calcium 8.1 mg/dL (8.5-10.1); Chloride 99 mmol/L (98-107); Glucose 110 mg/dL (74-106); Magnesium 1.7 mg/dL (1.8-2.4); Sodium 131 mmol/L (136-145)
[2020-07-20] MEDS: MAGNESIUM SULFATE 2 GM/50 ML BAG IVPB (09:48)
--- NOTE | 2020-07-20 11:51 | PGE_ITS ---
Date of Service Date of service: 07/20/20 Time of Service: 11:52 Assessment and Plan Assessment and plan (1) Edema: Status: Acute Assessment and plan: in BLE's. It does appear that the patient has gained 12-14 kg since beginning of June. With h/o alcoholic cirrhosis, the most likely scenario is fluid retention from this; however, he does also have evidence of moderate pulmonary hypertension from 2018. Finally, with recent orthopedic surgery, DVT needs to be ruled out. Will upgrade to IV lasix, monitor I/O's and daily weights. Obtain echo. Continue low sodium diet. Qualifiers: Edema type: localized Qualified Code(s): R60.0 - Localized edema (2) C3 cervical fracture: Status: Acute Assessment and plan: Stable. C-collar only when up and walking for 6-8 wks. 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 Recommend ambulation with a walker, WBAT, and outpatient follow up. (4) Fracture of nasal bone: Status: Acute Assessment and plan: Asymptomatic. No further workup. (5) Closed fracture of left orbit: Status: Acute Assessment and plan: Asymptomatic. No further workup. May choose to follow up with ENT as outpatient. (6) Alcohol use disorder: Status: Chronic Assessment and plan: Not currently withdrawing. Continue to monitor on CIWA. (7) Chronic obstructive lung disease: Status: Chronic Assessment and plan: At baseline. Encourage IS. Qualifiers: COPD type: unspecified COPD Qualified Code(s): J44.9 - Chronic obstructive pulmonary disease, unspecified (8) Gastroesophageal reflux disease: Status: Chronic Assessment and plan: Continue PO protonix (9) Hypertension: Status: Chronic Assessment and plan: No change in tx. Qualifiers: Hypertension type: essential hypertension Qualified Code(s): I10 - Essential (primary) hypertension (10) Tobacco use disorder: Status: Chronic Assessment and plan: Continue nicotine replacement (11) DVT prophylaxis: Status: Acute Assessment and plan: SC lovenox (12) Discharge planning issues: Status: Acute Assessment and plan: PT/OT Would benefit from SNF on d/c. Subjective Subjective Interval history since last seen: Mr Cr was napping in a chair when I came in to his room. He was easily arousable. He was surprised that it was July, but did reorient to time and date within a couple of minutes. He denied dizziness, chest pain, endorsed his usual shortness of breath, denied abdominal pain, n/v. He states his neck is not bothering him per se, but that the neck collar was bothering him very much. His left hip is bothering him a little bit. The patient endorses BLE edema - he thinks he gained 20 lbs since being admitted. I discussed the case with Dr Sarabia who reviewed films as well as [facility] recommendations made by the ED with me. Because the C3 fracture is stable, it requires a C-collar for 6-8 weeks today while OOB walking around, but not in the bed or when sitting in a chair. As far as the recently repaired left hip, the fx seen on CT is already stabilized by the repair the patient underwent in June. Recommendation was for weight bearing as tolerated with a walker. Exam Narrative Exam Narrative: General: Pleasant, initially confused, but then easily reorientable elderly male, A&Ox3, sitting up in a chair in a cervical collar HEENT: EOMI, MMM Heart: RRR, no m/r/g Lungs: CTAB Abdomen: soft, nontender, nondistended, L-sided ventral hernia present - not painful Extremities: 2+ BLE edema, no c/c. Objective Last Vital Signs Temp 36.7 C 07/20/20 08:14 Pulse 72 07/20/20 08:14 Resp 17 07/20/20 08:14 BP 103/58 L 07/20/20 08:14 Pulse Ox 94 07/20/20 08:14 Laboratory Results - last 24 hr 07/20/20 07/20/20 08:25 08:25 WBC 8.85 RBC 3.19 L Hgb 10.1 L Hct 31.9 L MCV 100.0 H MCH 31.7 MCHC 31.7 L RDW 14.6 H Plt Count 302 MPV 8.2 Immature Gran % 0.5 Neutrophils % 74.3 Lymphocytes % 11.8 Monocytes % 10.5 Eosinophils % 2.4 Basophils % 0.5 Nucleated RBC % 0 Absolute Neutrophils 6.59 Absolute Lymphocytes 1.04 L Absolute Monocytes 0.93 H Absolute Eosinophils 0.21 Absolute Basophils 0.04 Sodium 131 L Potassium 4.0 Chloride 99 Carbon Dioxide 27.6 Anion Gap 4.4 BUN 6 L Creatinine 0.66 L Estimated GFR/1.73 m2 >= 60.00 Glucose 110 H Calcium 8.1 L Magnesium 1.7 L
--- NOTE | 2020-07-20 12:15 | PT.INTREAT ---
PT Notes Visit Reasons: HIP CONTUSION,CERVICAL SPINE FRACTURE,ALCOHOL WITH Inpatient Physical Therapy Treatment Note [facility] Date: 07/20/2020 PRECAUTIONS:cervical collar on at all times. WBAT L SUBJECTIVE: Severino reports that he is doing better today, although reports that his hip is still very painful to wt bear. He is agreeable to PT, but refuses ambulation. OBJECTIVE: [] PAIN: left hip with wt bearing. BED MOBILITY/TRANSFERS Sit-stand: CGAx1 Stand-sit: CGA GAIT Assistive Device: FWW Weight bearing: WBAT Assist:CGA Distance: stood in place x2. (4 min and again x 2 min) attempting wt shifting ex. THEREX: global LE strength and stabilization. See flowsheet for details. ASSESSMENT: tolerated session well despite c/o left hip pain. He was willing to put forth effort with PT. PLAN: will continue to progress wt bearing to tolerance. TREATMENT CODE/TIME: 30 min. [id number]. [id number].
--- NOTE | 2020-07-20 13:00 | W.ORTHOCONSU ---
Date of service: 07/20/20 Time of Service: 13:01 History of Present Illness Narrative: Per ER and hospitalist reports: 74-year-old male about 5 weeks status post left hip IMN for intertrochanteric fracture with Dr. Mcclendon with a history of alcohol abuse, COPD, GERD, hypertension, hyperlipidemia who presented to the ER with Left hip pain after fall. Ambulatory. Unclear if any new injury to hip or neck. Not complaining of neck pain. Abrasions on forehead. Consult Reason 1. C3 vertebral body fracture 2. Left periprosthetic hip fracture Assessment and Plan Assessment and plan (1) C3 cervical fracture: Status: Acute Assessment and plan: Per [facility] spine Stable fracture pattern. Agree looks like stable extension teardrop fracture. Recommend rigid cervical collar 6-8 weeks. Should be removed for skin care, eating, and can be off while in bed or seated. If no neck pain or neurologcal symptoms whatsover, likely chronic injury that does not require any immobilization. Follow up with [facility] spine. Qualifiers: Encounter type: initial encounter Fracture type: closed Fracture morphology: other fracture Fracture alignment: nondisplaced Qualified Code(s): S12.291A - Other nondisplaced fracture of third cervical vertebra, initial encounter for closed fracture (2) Periprosthetic fracture around internal prosthetic left hip joint: Status: Acute Assessment and plan: Oblique linear lucency seen only on coronal CT sequences extending near but not past distal aspect of intramedullary short nail not visualized on other CT sequences including axial or sagittal images. No change in position of intramedullary implant or displaced subtroch femur or femoral shaft fracture. Unclear if artifact or new fracture. Recommend weightbearing as tolerated with walker. Repeat imaging if patient unable to mobilize or bear weight. Qualifiers: Encounter type: initial encounter Qualified Code(s): M97.02XA - Periprosthetic fracture around internal prosthetic left hip joint, initial encounter (3) Intertrochanteric fracture of left femur: Status: Acute Assessment and plan: No healing yet. Optimize medical and nutrition status. Follow up with Dr. Mcclendon as scheduled. 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 Geoffrey Dumont Chronic obstructive lung disease (03/15/13) 01/2007 PFTs: FEV1 90%; 06/2019 PFTs: FEV1/FVC 56% --> severe obstructive airways disease with no bronchodilator response Dysphagia 10/17/2018 EGD ([facility] [place]): Smalls's & interval resolution of esophageal varices seen on previous EGD (see Smalls's dx comments for details); 06/06/2019 Barium Swallow: some dysmotility & aspiration --> referred to Speech Therapy 04/12/20 [facility] [place] Esophageal Manometry; 05/17/2020 EGD: Grade I esophageal varices, duodenal erosions w/o bleeding, no obstructive cause for dysphagia Esophageal varices 06/22/2017 EGD (Dr. Cheney): grade 1 w/ stigmata of bleeding; 10/17/2018 EGD ([facility] [place]): no evidence of esophageal or gastric varices on carvedilol 6.25 mg BID Family history of malignant melanoma ov note dated 05/10/20-Dr. Hale Gastroesophageal reflux disease (03/15/13) surgery 08/1990 GERD (gastroesophageal reflux disease) Hepatic cirrhosis (01/14/18) [facility] [place] GI 02/24/2018 Fibroscan: stage 4 liver fibrosis, consistent with cirrhosis with possible portal HTN 06/22/2018 EGD (Dr. 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/24/13) S/p repair L; then occurred on R side and now chronic Hyperlipidemia (03/24/13) 11/2018 labs: good response to high potency statin, continue Hyperlipidemia Hypertension (08/01/14) Incisional hernia, without obstruction or gangrene (01/17/18) [facility] GI consult Incontinence of feces Malignant neoplasm of prostate Rectosphincteric dyssynergia Manifested as fecal incontinence and constipation; resolved with daily fiber supplementation Restless leg syndrome Rotator cuff syndrome (03/24/13) S/p B/L repair Seborrheic keratosis (02/18/17) Dr. Hale Derm Sigmoid diverticulosis (02/01/18) 02/01/2018 colonoscopy Squamous cell carcinoma Face Tobacco use disorder 1.5 PPD Surgical History Colonoscopy - MAC (02/01/18) H/O colonoscopy 05/17/20 at [facility] [place] - no need for further to have any further colonscopy per report H/O endoscopy 05/17/20 [facility] [place] [facility] History of esophagogastroduodenoscopy (EGD) (06/22/18) dr cheney, grade I esophageal varices Left shoulder (09/24/07) Marci Fundoplication (03/24/85) Prostatectomy (~05/2007) Repair of incision from Marci fundoplication (03/24/87) right shoulder (03/24/00) Family History Mother , resp failure No problems noted. Father , prostate CA Personal history of malignant neoplasm prostate Malignant melanoma Social History Smoking/Tobacco Use Status: Current every day Tobacco Type: cigarettes Smoking risk assessment performed?: Yes Alcohol Intake: current Alcohol Intake frequency: 3 or more drinks per day Alcohol type: beer and hard liquor Drug use: Never Substance use type: does not use Caregiver/Support person: No Number of Children: 2 Communication Needs: None current occupation: Retired Current gender identity: male What type of physical activity do you participate in: none Seatbelt use: always Water heater temp set <120 deg: Yes Working smoke detector in home: Yes Fire extinguisher in home: Yes Carbon monox detector in home: Yes Firearms in home: No Do you feel safe at home: Yes Do you feel safe in your relationship?: Yes Exam Narrative Exam Narrative: Deferred Results Last Vital Signs Temp 97.5 F L 07/20/20 12:07 Pulse 81 07/20/20 12:07 Resp 19 07/20/20 12:07 BP 128/77 07/20/20 12:07 Pulse Ox 95 07/20/20 12:07 Labs Result diagrams: 07/20/20 08:25 07/20/20 08:25 Labs: Laboratory Results - last 24 hr 07/20/20 07/20/20 08:25 08:25 WBC 8.85 RBC 3.19 L Hgb 10.1 L Hct 31.9 L MCV 100.0 H MCH 31.7 MCHC 31.7 L RDW 14.6 H Plt Count 302 MPV 8.2 Immature Gran % 0.5 Neutrophils % 74.3 Lymphocytes % 11.8 Monocytes % 10.5 Eosinophils % 2.4 Basophils % 0.5 Nucleated RBC % 0 Absolute Neutrophils 6.59 Absolute Lymphocytes 1.04 L Absolute Monocytes 0.93 H Absolute Eosinophils 0.21 Absolute Basophils 0.04 Sodium 131 L Potassium 4.0 Chloride 99 Carbon Dioxide 27.6 Anion Gap 4.4 BUN 6 L Creatinine 0.66 L Estimated GFR/1.73 m2 >= 60.00 Glucose 110 H Calcium 8.1 L Magnesium 1.7 L
[2020-07-20] MEDS: Furosemide 20 MG/2 ML VIAL IVP (15:28)
[2020-07-20] MEDS: Normal Saline Flush 10 ML SYR IVP (15:28)
--- NOTE | 2020-07-21 | DI.US_ITS ---
EXAM: US EXTREMITY VENOUS BI CLINICAL HISTORY: BLE EDEMA, CONCERN FOR DVT. TECHNIQUE: Bilateral lower extremity venous ultrasound performed using grayscale, color-flow, and sp ectral Doppler analysis. COMPARISON: No exams were available for comparison FINDINGS: The bilateral common femoral, femoral and popliteal veins demonstrate normal compressibility, augment ation, and color Doppler. The posterior tibial veins are patent. The saphenofemoral junctions are unr emarkable. IMPRESSION: No evidence of deep venous thrombosis. Moderate bilateral thigh and calf edema is noted. DATA REPOSITORY:
[2020-07-21 03:15] VITALS: BP 150/85; PULSE 82; RESP 18; TEMP 36.5; O2SAT 94
[2020-07-21 07:26] LABS: Abs Immature Grans 0.03 10^3/uL (0.0-0.06); Absolute Basophil Count 0.04 10^3/uL (0.0-0.2); Absolute Eosinophil Count 0.28 10^3/uL (0.0-0.7); Absolute Monocyte Count 1.09 10^3/uL (0.1-0.8); Absolute Neutrophil Count 6.41 10^3/uL (1.2-6.7); Basophils % 0.4; Eosinophils % 3.1; HCT 29.8 % (40.0-50.0); HGB 9.6 g/dL (13.5-17.5); Immature Grans % 0.3; Lymphocytes % 14.2; MCHC 32.2 % (32.0-36.0); MCV 99.3 fL (80-95); MPV 8.4 fL (8.0-11.0); Monocytes % 11.9; Neutrophils % 70.1; Nucleated RBC 0 %; Platelet Count 312 10^3/uL (130-400); RDW 14.6 % (11.8-14.1); RDW-SD 52.9 fL; WBC 9.15 10^3/uL (4.4-10.8)
[2020-07-21] MEDS: Budesonide/Formoterol 160/4.5 6 GM 60 PUFF INH IH ×2 (07:26→19:21)
[2020-07-21 07:35] LABS: Anion Gap 5.5 mmol/L (3-11); BUN 7 mg/dL (7-18); CO2 28.5 mmol/L (21.0-32.0); CREATININE 0.72 mg/dL (0.70-1.30); Calcium 8.2 mg/dL (8.5-10.1); Chloride 100 mmol/L (98-107); Glucose 99 mg/dL (74-106); Magnesium 1.9 mg/dL (1.8-2.4); Sodium 134 mmol/L (136-145)
[2020-07-21 08:14] VITALS: BP 128/65; PULSE 89; RESP 17; TEMP 36.5; O2SAT 96
[2020-07-21] MEDS: Cholecalciferol (Vitamin D3) 1,000 UNIT TAB 1000 UNITS PO (09:05)
[2020-07-21] MEDS: Pantoprazole 40 MG TABCR PO (09:06)
[2020-07-21] MEDS: Docusate Sodium 100 MG CAP PO ×2 (09:06→19:21)
[2020-07-21] MEDS: Cyanocobalamin 500 MCG TAB 1000 MCG PO (09:06)
[2020-07-21] MEDS: Carvedilol 3.125 MG TAB PO ×2 (09:06→19:21)
[2020-07-21] MEDS: Furosemide 20 MG/2 ML VIAL IVP (09:07)
[2020-07-21] MEDS: Thiamine 100 MG TAB PO (09:07)
[2020-07-21] MEDS: Normal Saline Flush 10 ML SYR IVP ×2 (09:07→16:53)
[2020-07-21] MEDS: Enoxaparin 40 MG/0.4 ML SYR SC (09:08)
[2020-07-21] MEDS: Nicotine 14 MG/24 HR PATCH TD (09:09)
[2020-07-21 11:29] VITALS: BP 123/74; PULSE 69; RESP 17; TEMP 36.4; O2SAT 99
--- NOTE | 2020-07-21 12:01 | PT.INIE ---
Date of service: 07/21/20 Time of Service: 10:40 PT Notes Visit Reasons: HIP CONTUSION,CERVICAL SPINE FRACTURE,ALCOHOL WITH Date: 07/21/2020 Referring Doctor: Hamzah Levine MD PT Orders: PT CONSULT: Eval/treat Precautions: Fall. Standard. Cervical collar on at all times. WBAT in BUE/LE. Patient Profile/Admitting Diagnosis: David is a 74-year-old male who presented to the ED on 07/17/2020 with chief complaints of left hip pain status post fall at home. He is also status post ORIF on his fifth week postoperatively. Patient is negative for left periprosthetic fracture but has an incidental finding of an oblique mildly displaced vertebral body fracture of C3 for which the cervical collar was ordered to be worn at all times. 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 Geoffrey Dumont Chronic obstructive lung disease (03/15/13) 01/2007 PFTs: FEV1 90%; 06/2019 PFTs: FEV1/FVC 56% --> severe obstructive airways disease with no bronchodilator response Dysphagia 10/17/2018 EGD ([facility] [place]): Smalls's & interval resolution of esophageal varices seen on previous EGD (see Smalls's dx comments for details); 06/06/2019 Barium Swallow: some dysmotility & aspiration --> referred to Speech Therapy 04/12/20 [facility] [place] Esophageal Manometry; 05/17/2020 EGD: Grade I esophageal varices, duodenal erosions w/o bleeding, no obstructive cause for dysphagia Esophageal varices 06/22/2017 EGD (Dr. Cheney): grade 1 w/ stigmata of bleeding; 10/17/2018 EGD ([facility] [place]): no evidence of esophageal or gastric varices on carvedilol 6.25 mg BID Family history of malignant melanoma ov note dated 05/10/20-Dr. Hale Gastroesophageal reflux disease (03/15/13) surgery 08/1990 GERD (gastroesophageal reflux disease) Hepatic cirrhosis (01/14/18) [facility] [place] GI 02/24/2018 Fibroscan: stage 4 liver fibrosis, consistent with cirrhosis with possible portal HTN 06/22/2018 EGD (Dr. 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/24/13) S/p repair L; then occurred on R side and now chronic Hyperlipidemia (03/24/13) 11/2018 labs: good response to high potency statin, continue Hyperlipidemia Hypertension (08/01/14) Incisional hernia, without obstruction or gangrene (01/17/18) [facility] [place] GI consult Incontinence of feces Malignant neoplasm of prostate Rectosphincteric dyssynergia Manifested as fecal incontinence and constipation; resolved with daily fiber supplementation Restless leg syndrome Rotator cuff syndrome (03/24/13) S/p B/L repair Seborrheic keratosis (02/18/17) Dr. Hale Derm Sigmoid diverticulosis (02/01/18) 02/01/2018 colonoscopy Squamous cell carcinoma Face Tobacco use disorder 1.5 PPD Surgical History Colonoscopy - MAC (02/01/18) H/O colonoscopy 05/17/20 at [facility] [place] - no need for further to have any further colonscopy per report H/O endoscopy 05/17/20 [facility] [place] History of esophagogastroduodenoscopy (EGD) (06/22/18) Dr Cheney, grade I esophageal varices Left shoulder (09/24/07) Marci Fundoplication (03/24/85) Prostatectomy (~05/2007) Repair of incision from Marci fundoplication (03/24/87) right shoulder (03/24/00) Social History/Home Situation: Lives alone in a private home with 2 steps to enter through his garage that leads onto a deck with a grab bar. There is another step from the deck into his home with a grab bar. Has a multilevel home but reports all of his essentials are on the main floor of the house. Equipment Owned/DME: [facility] Subjective: Patient states that this morning he had somewhat of a breakthrough as he was able to walk over to the chair with the assistance of staff under 5 out of 10 pain. He states he was very encouraged by this but about an hour later when transferring to the commode he states that he was very painful again through the left side. He states that he is somewhere in between right now Objective: General Observation: Sitting up in recliner. . IV in L UE. Mental Status: Hematoma seen in R frontotemporal area. mild swelling seen in L hip and thigh. Trunk anteroflexed. Pain: 6/10 pain in L hip and thigh ROM: Right Upper Extremity: Shoulder Flexion WFL. Shoulder abduction WFL. Elbow flexion WFL. Wrist flexion WFL. Opening and closing of hand WFL. Left Upper Extremity: Shoulder Flexion WFL. Shoulder abduction WFL. Elbow flexion WFL. Wrist flexion WFL. Opening and closing of hand WFL. Right Lower Extremity: Hip abduction WFL. Knee flexion WFL. Ankle dorsiflexion WFL. Ankle plantarflexion WFL. Left Lower Extremity: Hip flexion 95. Hip abduction 15-20. Knee flexion beyond 95. Ankle dorsiflexion past neutral. Ankle plantarflexion WFL. L hip Strength: Right Upper Extremity: Shoulder flexors 4-/5. Shoulder abductors 4-/5. Elbow flexors 4-/5. Elbow extensors 4-/5. Completion Supervisor strong. Left Upper Extremity: Shoulder flexors 4-/5. Shoulder abductors 4-/5. Elbow flexors 4-/5. Elbow extensors 4-/5. Completion Supervisor strong. Right Lower Extremity: Hip flexors 3+/5. Hip abductors 3+/5. Knee flexors 4-/5. Knee extensors 4-/5. Ankle dorsiflexors 4-/5. Ankle plantarflexors 4-/5. Left Lower Extremity: Hip flexion 3+ out of 5, hip abduction 3+ out of 5, knee flexion 3+ out of 5, knee extension 3+ out of 5 Sensation: Intact as to pain and pressure on bilateral lower extremities. Bed Mobility/Transfers: Not assessed as patient was in recliner Supine to sit not assessed as patient was in recliner Sit to stand minimal assist of 1 Stand to sit minimal assist of 1 Gait: Patient unable to take an extended ambulation test today. He is able to walk forward maybe 2-3 steps very minimal weight-bear placed to the left lower extremity Balance: Static Sitting: Normal Dynamic Sitting: Good Static Standing: Poor Dynamic Standing:poor Special Tests: Mobility Limitations Standardized Measure [facility] AM-PAC 6 clicks Basic Mobility Inpatient Short Form: Raw Score: 11 CMS Score: 73% deficit Informed Consent/Education: Patient instructed in purpose of PT consult and plan of care. Assessment: David demonstrates significant functional mobility decline and requires assist of 2 for all mobility ADL performance using a front wheeled walker, difficulty with walking, generalized weakness, and increased risk for falls due to admitting diagnosis and comorbidities. Patient presents with clinical signs and symptoms consistent with current/admitting diagnoses that have resulted to mobility limitations, gait instability, generalized weakness, and impairment of motor control as demonstrated by the following impairment level findings: 1. Decreased strength to BUE/LE major muscle groups 2. Impaired standing balance 3. Impaired activity tolerance 4. Limitation of joint range of motion in L LE 5. Pain in L LE Impairments are contributing to the following functional limitations: 1. Dependent bed mobility skills 2. Increased dependence with transfers 3. Inability to safely ambulate without assistive device and physical assistance 4. Increase completion time for mobility ADL performance 5. Increased fall risk 6. Inability to negotiate steps alone safely Patient is assessed as a [id number] moderate complexity based on the following: History: 74-year-old male with impairment level findings, functional limitations, and past medical history as indicated above Examination: Demonstrable impairment in strength, balance, and mobility level with underlying impairments and functional limitations as documented above Presentation:Evolving Decision Makin moderate complexity Goals: Goals X1 week 1. Supine-Sit independent 2. Sit-Supine independent 3. Sit-Stand independent 4. Stand-Sit independent 5. Bed-Chair independent 6. Chair-Bed independent 7. Independent gait on level surface with use of least restrictive device for at least 300 feet without report of pain nor dyspnea 8. Independent stair negotiation while holding onto bilateral rails for at least 10 steps without report of pain nor dyspnea 9. Independent with home exercise program 10. Good static and dynamic standing balance/tolerance Plan of Care/Treatment Plan: 1-2x/day, 7 days/week x 1 week. Plan of care has been reviewed with the SPEEDBOAT DRIVER providing the service under Physical Therapy direction. Initiate Physical Therapy intervention for strengthening, bed mobility, transfers, gait, stairs, balance training, use of assistive device. DISCHARGE RECOMMENDATIONS: Patient will benefit from long term facility placement for continued skilled physical therapy services in order to progress mobility level, strength, and balance in preparation for a safe discharge to home. TREATMENT CODE/TIME: 57360 moderate complexity initial evaluation time of treatment 1040 with 30 minutes of direct patient care Thank you for the opportunity to participate in the care of this patient. George Simon, [facility] [place], [place]
--- NOTE | 2020-07-21 13:21 | PGE_ITS ---
Date of Service Date of service: 07/21/20 Time of Service: 13:22 Assessment and Plan Assessment and plan (1) Edema: Status: Acute Assessment and plan: in BLE's with evidence of significant weight gain since June. With h/o alcoholic cirrhosis, the most likely scenario is fluid retention from this; however, he does also have evidence of moderate pulmonary hypertension from 2018. Finally, with recent orthopedic surgery, DVT needs to be ruled out - awaiting venous dopplers (should be done shortly). Continue IV lasix (increase dose to 40 mg IV BID), monitoring I/O's and daily weights. Await echo. Continue low sodium diet. Qualifiers: Edema type: localized Qualified Code(s): R60.0 - Localized edema (2) C3 cervical fracture: Status: Acute Assessment and plan: Stable and pain-free. C-collar only when up and walking for 6-8 wks. Qualifiers: Encounter type: initial encounter Fracture type: closed Fracture morphology: other fracture Fracture alignment: nondisplaced Qualified Code(s): S12.291A - Other nondisplaced fracture of third cervical vertebra, initial encounter for closed fracture (3) Periprosthetic fracture around internal prosthetic left hip joint: Status: Acute Assessment and plan: Per ortho, the fx seen on CT was likely already pres ent prior to surgery and is stabilized by the hardware in place. Recommend ambulation with a walker, WBAT, and outpatient follow up. Qualifiers: Encounter type: initial encounter Qualified Code(s): M97.02XA - Periprosthetic fracture around internal prosthetic left hip joint, initial encounter (4) Fracture of nasal bone: Status: Acute Assessment and plan: Asymptomatic. No further workup. (5) Closed fracture of left orbit: Status: Acute Assessment and plan: Asymptomatic. No further workup. May choose to follow up with ENT as outpatient. (6) Alcohol use disorder: Status: Chronic Assessment and plan: Not currently withdrawing. D/c CIWA, but continue vitamins. (7) Chronic obstructive lung disease: Status: Chronic Assessment and plan: At baseline. Encourage IS. Qualifiers: COPD type: unspecified COPD Qualified Code(s): J44.9 - Chronic obstructive pulmonary disease, unspecified (8) Gastroesophageal reflux disease: Status: Chronic Assessment and plan: Continue PO protonix (9) Hypertension: Status: Chronic Assessment and plan: No change in tx. Qualifiers: Hypertension type: essential hypertension Qualified Code(s): I10 - Essential (primary) hypertension (10) Tobacco use disorder: Status: Chronic Assessment and plan: Continue nicotine replacement (11) DVT prophylaxis: Status: Acute Assessment and plan: SC lovenox (12) Discharge planning issues: Status: Acute Assessment and plan: PT/OT Would benefit from SNF on d/c. Subjective Subjective Interval history since last seen: Mr Cr states that his legs are still pretty swollen. He denies neck discomfort. States was able to walk more comfortably on his left hip today. Denies dizziness, chest pain, shortness of breath, nausea. Exam Narrative Exam Narrative: General: Pleasant, elderly male, A&Ox3, sitting up in a chair having lunch HEENT: EOMI, MMM, old hematoma R forehead (was there yesterday) Heart: RRR, no m/r/g Lungs: CTAB Abdomen: soft, nontender, nondistended, L-sided ventral hernia present - not painful Extremities: 2+ BLE edema, unchanged, no c/c. Objective Last Vital Signs Temp 36.4 C L 07/21/20 11:29 Pulse 69 07/21/20 11:29 Resp 17 07/21/20 11:29 BP 123/74 07/21/20 11:29 Pulse Ox 99 07/21/20 11:29 Laboratory Results - last 24 hr 07/21/20 07/21/20 07:00 07:00 WBC 9.15 RBC 3.00 L Hgb 9.6 L Hct 29.8 L MCV 99.3 H MCH 32.0 MCHC 32.2 RDW 14.6 H Plt Count 312 MPV 8.4 Immature Gran % 0.3 Neutrophils % 70.1 Lymphocytes % 14.2 Monocytes % 11.9 Eosinophils % 3.1 Basophils % 0.4 Nucleated RBC % 0 Absolute Neutrophils 6.41 Absolute Lymphocytes 1.30 Absolute Monocytes 1.09 H Absolute Eosinophils 0.28 Absolute Basophils 0.04 Sodium 134 L Potassium 4.0 Chloride 100 Carbon Dioxide 28.5 Anion Gap 5.5 BUN 7 Creatinine 0.72 Estimated GFR/1.73 m2 >= 60.00 Glucose 99 Calcium 8.2 L Magnesium 1.9
--- NOTE | 2020-07-21 13:37 | CMPROGNOTE_ITS ---
- If Service Date Differs Date of service: 07/21/20 Time of Service: 13:37 Care Management Progress Note S/O: Severino continues to improve and is walking with less discomfort. He remains on IV Lasix 20 mg BID for diuresis. An echocardiogram and a venous doppler have been ordered for Wednesday, in addition to a basic metabolic panel and a magnesium level. CM will continue to follow. A: Severino is a 74 year old male admitted to [facility] on 07/17/20 for hip contusion and cervical spine fracture. P: Plan remains the same. Severino will discharge to [id number] for short term rehab prior to returning home. [facility] is currently closed to admissions. Severino shared that after his short term rehab stay, his daughter would be returning to [place] to stay with him in his home until he is independent. Per PT he required less assistance with mobility and transfers on Wednesday compared to prior. Severino will remain at [facility] until [facility] can accept him for admission. CM will continue to support patient and discharge planning needs.
[2020-07-21 15:03] VITALS: BP 118/72; PULSE 75; RESP 17; TEMP 36.3; O2SAT 96
--- NOTE | 2020-07-21 16:38 | DI.VRAD_ITS ---
PROCEDURE INFORMATION: Exam: US Duplex Lower Extremity Veins, Bilateral Exam date and time: 07/21/2020 4:24 PM Age: 74 years old Clinical indication: Lymphedema; Lower extremity, right and lower extremity, left TECHNIQUE: Imaging protocol: Real-time duplex ultrasound of the extremities with 2-D amor scale, color Doppler flow and spectral waveform analysis with image documentation. Complete exam focused on the bilateral lower extremity veins. COMPARISON: No relevant prior studies available. FINDINGS: Right deep veins: Unremarkable. The common femoral, femoral, proximal profunda femoral and popliteal veins are patent without thrombus. Normal Doppler waveforms. Normal compressibility and/or augmentation response. Right superficial veins: Saphenofemoral junction is patent without thrombus. Left deep veins: Unremarkable. The common femoral, femoral, proximal profunda femoral and popliteal veins are patent without thrombus. Normal Doppler waveforms. Normal compressibility and/or augmentation response. Left superficial veins: Saphenofemoral junction is patent without thrombus. Soft tissues: edema. IMPRESSION: No evidence of deep vein thrombosis. soft tissue edema Dictated and Authenticated by: Doyle Fung MD. Ordering:ZACKARY Wen MD
[2020-07-21] MEDS: Furosemide 20 MG/2 ML VIAL 40 MG IVP (16:52)
[2020-07-21 21:23] VITALS: BP 143/83; PULSE 86; RESP 18; TEMP 36.4; O2SAT 94
[2020-07-21 23:31] VITALS: BP 137/84; PULSE 70; RESP 18; TEMP 36.6; O2SAT 96
--- NOTE | 2020-07-22 | DI.US_ITS ---
EXAM: US RENAL CLINICAL HISTORY: blood clots, would like bladder u/s and renal TECHNIQUE: Ultrasound performed using standard protocol. COMPARISON: US US ECHOCARDIOGRAM from 07/22/2020 FINDINGS: Renal ultrasound was performed according to the usual protocol. The kidneys are normal in size and s hape. There is no evidence of a renal mass, hydronephrosis, or nephrolithiasis. Urinary bladder is unremarkable in appearance except for small amount of apparent debris in the bladd er floor, the patient reportedly has a history of hematuria. Pre and postvoid urinary bladder volume measurements are 153 cc and 0 cc respectively. Incidental note is made mild ascites in the upper abdomen, this was previously noted on CT. IMPRESSION: Essentially negative ultrasound examination of the urinary tract, small quantity of apparent bladder debris is noted which may represent blood clots in patient with history of recent hematuria. DATA REPOSITORY:
[2020-07-22 03:22] VITALS: BP 134/75; PULSE 82; RESP 17; TEMP 36.9; O2SAT 92
[2020-07-22 05:59] VITALS: BP 137/85; PULSE 75; RESP 19; TEMP 35.9; O2SAT 96
[2020-07-22 06:34] VITALS: TEMP 36.2
[2020-07-22 07:02] LABS: Anion Gap 7.1 mmol/L (3-11); BUN 8 mg/dL (7-18); CO2 28.9 mmol/L (21.0-32.0); CREATININE 0.65 mg/dL (0.70-1.30); Calcium 8.4 mg/dL (8.5-10.1); Chloride 99 mmol/L (98-107); Glucose 90 mg/dL (74-106); Magnesium 1.8 mg/dL (1.8-2.4); Potassium 3.7 mmol/L (3.5-5.1); Sodium 135 mmol/L (136-145)
[2020-07-22] MEDS: Cyanocobalamin 500 MCG TAB 1000 MCG PO (08:23)
[2020-07-22] MEDS: Pantoprazole 40 MG TABCR PO (08:23)
[2020-07-22] MEDS: Nicotine 14 MG/24 HR PATCH TD (08:23)
[2020-07-22] MEDS: Polyethylene Glycol 3350 17 GM PACKET PO (08:23)
[2020-07-22] MEDS: Docusate Sodium 100 MG CAP PO ×2 (08:23→20:14)
[2020-07-22] MEDS: Thiamine 100 MG TAB PO (08:23)
[2020-07-22] MEDS: Carvedilol 3.125 MG TAB PO ×2 (08:23→20:14)
[2020-07-22] MEDS: Furosemide 20 MG/2 ML VIAL 40 MG IVP (08:23)
[2020-07-22] MEDS: Cholecalciferol (Vitamin D3) 1,000 UNIT TAB 1000 UNITS PO (08:23)
[2020-07-22] MEDS: Enoxaparin 40 MG/0.4 ML SYR SC (08:24)
[2020-07-22] MEDS: Normal Saline Flush 10 ML SYR IVP ×3 (08:25→20:24)
[2020-07-22 08:26] VITALS: BP 127/78; PULSE 90; RESP 17; TEMP 36.9; O2SAT 96
--- NOTE | 2020-07-22 08:45 | CMPROGNOTE_ITS ---
Care Management Progress Note S/O: Severino remains pleasant in interaction. He continues on IV Lasix 20 mg BID for diuresis and due to blood clots in his urine last evening, a bladder and renal ultrasound will be ordered as well. An echocardiogram and a venous doppler were completed today, in addition to a basic metabolic panel and a magnesium level. Severino remains acute at this time; closely monitored. No change to overall plan. CM will continue to follow. A: Severino is a 74 year old male admitted to [facility] on 07/17/20 for hip contusion and cervical spine fracture. P: Plan remains the same. Severino will discharge to [place] [id number] for short term rehab prior to returning home. [facility] remains closed to admissions. Severino shared that after his short term rehab stay, his daughter would be returning to [place] to stay with him in his home until he is independent. Per PT he required less assistance with mobility and transfers on Wednesday compared to prior. Severino will remain at [facility] until [facility] can accept him for admission. CM will continue to support patient and discharge planning needs.
[2020-07-22] MEDS: Budesonide/Formoterol 160/4.5 6 GM 60 PUFF INH IH ×2 (09:25→20:15)
[2020-07-22 09:46] LABS: NT-proBNP 309 pg/mL (<300)
[2020-07-22 11:19] VITALS: BP 136/78; PULSE 76; RESP 17; TEMP 36.9; O2SAT 98
--- NOTE | 2020-07-22 11:51 | W.PM.PROGNOT ---
Date of Service Date of service: 07/22/20 Time of Service: 11:51 Assessment and Plan Assessment and plan (1) Edema: Start date: 07/22/20 Start time: 12:09 Status: Acute Assessment and plan: in BLE's with evidence of significant weight gain since June, also up to abd. With h/o alcoholic cirrhosis, the most likely scenario is fluid retention from this; however, he does also have evidence of moderate pulmonary hypertension from 2018 which is also present on todays echo, with normal systolic and diastolic function. Finally, with recent orthopedic surgery, DVT u/s with no evidence DVT Continue IV lasix (increase dose to 40 mg IV BID), monitoring I/O's and daily weights. Add spirnonolactone to regimen Echo results: EXAM: Comprehensive 2D, Doppler, and color-flow Echocardiogram Patient Location: In-Patient Room/Bed: 229 Hand Chain Maker: Nadine Pittman RDCS (AE) Indications: Edema Other Information Study Quality: Fair. Technically limited study due to inability to position patient. Wall motion Left Ventricle The left ventricle is normal size. The left ventricular systolic function is normal. The left ventricular ejection fraction is within the normal range. There is normal left ventricular wall thickness. There is normal LV segmental wall motion. There is no ventricular septal defect visualized. LVEF is 57%. Right Ventricle Right ventricle is not well visualized. Right ventricular systolic function is grossly normal. The RVSP is 34.9 mmHg. Atria The left atrium size is normal. The right atrium size is normal. The interatrial septum is intact with no evidence for an atrial septal defect. Aortic Valve The Aortic valve is sclerotic. There is no aortic valvular stenosis. No aortic regurgitation is present. Mitral Valve The mitral valve is normal in structure. No evidence of mitral valve stenosis. Trace mitral regurgitation. Tricuspid Valve The tricuspid valve is normal in structure. There is no tricuspid valve stenosis. Mild tricuspid regurgitation. Pulmonic Valve The pulmonary valve is normal in structure. There is no pulmonic valvular stenosis. There is no pulmonic valvular regurgitation. Great Vessels The aortic root is normal in size. Aortic arch is not well visualized. IVC is normal in size and collapses >50% with inspiration. Pericardium There is no pericardial effusion. Continue low sodium diet. Qualifiers: Edema type: localized Qualified Code(s): R60.0 - Localized edema (2) C3 cervical fracture: Start date: 07/22/20 Start time: 12:43 Status: Acute Assessment and plan: Stable and pain-free. C-collar only when up and walking for 6-8 wks. Qualifiers: Encounter type: initial encounter Fracture type: closed Fracture morphology: other fracture Fracture alignment: nondisplaced Qualified Code(s): S12.291A - Other nondisplaced fracture of third cervical vertebra, initial encounter for closed fracture (3) Periprosthetic fracture around internal prosthetic left hip joint: Start date: 07/22/20 Start time: 12:43 Status: Acute Assessment and plan: Per ortho, the fx seen on CT was likely already present prior to surgery and is stabilized by the hardware in place. Recommend ambulation with a walker, WBAT, and outpatient follow up. Qualifiers: Encounter type: initial encounter Qualified Code(s): M97.02XA - Periprosthetic fracture around internal prosthetic left hip joint, initial encounter (4) Fracture of nasal bone: Start date: 07/22/20 Start time: 12:43 Status: Acute Assessment and plan: Asymptomatic. No further workup. (5) Closed fracture of left orbit: Start date: 07/22/20 Start time: 12:43 Status: Acute Assessment and plan: Asymptomatic. No further workup. May choose to follow up with ENT as outpatient. (6) Alcohol use disorder: Start date: 07/22/20 Start time: 12:43 Status: Chronic Assessment and plan: Not currently withdrawing. D/c CIWA, but continue vitamins. (7) Chronic obstructive lung disease: Start date: 07/22/20 Start time: 12:44 Status: Chronic Assessment and plan: At baseline. Encourage IS. Qualifiers: COPD type: unspecified COPD Qualified Code(s): J44.9 - Chronic obstructive pulmonary disease, unspecified (8) Gastroesophageal reflux disease: Start date: 07/22/20 Start time: 12:44 Status: Chronic Assessment and plan: Continue PO protonix (9) Hypertension: Start date: 07/22/20 Start time: 12:44 Status: Chronic Assessment and plan: No change in tx. Qualifiers: Hypertension type: essential hypertension Qualified Code(s): I10 - Essential (primary) hypertension (10) Tobacco use disorder: Start date: 07/22/20 Start time: 12:44 Status: Chronic Assessment and plan: Continue nicotine replacement (11) Hematuria: Start date: 07/22/20 Start time: 12:45 Status: Acute Assessment and plan: Endorses blood clots in urine last night with pain. Will obtain bladder and renal us Hold enoxaparin at this time. (12) DVT prophylaxis: Start date: 07/22/20 Start time: 12:44 Status: Acute Assessment and plan: SC lovenox on hold due to hematuria (13) Discharge planning issues: Start date: 07/22/20 Start time: 12:46 Status: Acute Assessment and plan: PT/OT Would benefit from SNF on d/c. above case discussed with Dr. Ramos who is in agreement. Subjective Subjective Patient reports: no new complaints Interval history since last seen: Sitting up in chair, AAOx3. C-Collar is not on at this time. He has swelling from feet to abd, + 3 pitting, he also endorses blood clots while urinating last night. Will obtain bladder and renal u/s. Voiding without difficulty. Tolerating diet and liquid. He denies CP, SOB, N/V/D Exam Narrative Exam Narrative: General: Pleasant, elderly male, A&Ox3, sitting up in a chair, sleeping but arouses easily HEENT: EOMI, MMM, old hematoma R forehead (was there yesterday) changing color Heart: RRR, no m/r/g Lungs: CTAB Abdomen: soft, nontender, nondistended, L-sided ventral hernia present - not painful, edema to abd Extremities: 3+ BLE edema, unchanged, no c/c. Objective Last Vital Signs Temp 36.9 C 07/22/20 11:19 Pulse 76 07/22/20 11:19 Resp 17 07/22/20 11:19 BP 136/78 07/22/20 11:19 Pulse Ox 98 07/22/20 11:19 Laboratory Results - last 24 hr 07/22/20 06:31 Sodium 135 L Potassium 3.7 Chloride 99 Carbon Dioxide 28.9 Anion Gap 7.1 BUN 8 Creatinine 0.65 L Estimated GFR/1.73 m2 >= 60.00 Glucose 90 Calcium 8.4 L Magnesium 1.8 NT-Pro-B Natriuret Pep 309 H
[2020-07-22] MEDS: Spironolactone 50 MG TAB 100 MG PO (12:06)
--- NOTE | 2020-07-22 15:58 | PTTR_ITS ---
Date of service: 07/22/20 Time of Service: 07:50 PT Notes Visit Reasons: HIP CONTUSION,CERVICAL SPINE FRACTURE,ALCOHOL WITH Inpatient Physical Therapy Treatment Note [facility] Date: 07/22/2020 PRECAUTIONS: Fall, WBAT B SUBJECTIVE: Severino states that he is feeling better today. He is excited to go for a walk. OBJECTIVE: PAIN: Patient c/o increasing L hip pain with increased gait distance. BED MOBILITY/TRANSFERS Supine-sit: Mod A in a.m.; min a in p.m. Sit-supine: Mod A x2 with HOB flat Sit-stand: CGA Stand-sit: CGA Bed-Chair: [facility] Chair-bed: [facility] GAIT Assistive Device: FWW Weight bearing: WBAT B Assist: CGA. Distance: 6 steps in a.m.; 20' in p.m. Deviation: Slow pace, increasing L hip pain with increased distance ASSESSMENT: Patient tolerated session with complaint of increasing L hip pain with increased gait distance. He was able to tolerate a significant gait distance progression with both FWW with CGA. PLAN: Continue with global strengthening and transfer and gait training for improved mobility and activity tolerance TREATMENT CODE/TIME: Session 1: 15 minutes; [id number] Session 2: 15 minutes; [id number]
[2020-07-22] MEDS: Furosemide 40 MG/4 ML VIAL IVP (16:18)
[2020-07-22 17:30] VITALS: BP 122/69; PULSE 89; RESP 17; TEMP 37.1; O2SAT 93
[2020-07-23 00:30] VITALS: BP 124/74; PULSE 76; RESP 20; TEMP 36.6; O2SAT 95
[2020-07-23 03:50] VITALS: BP 123/71; PULSE 82; RESP 19; TEMP 36.5; O2SAT 94
--- NOTE | 2020-07-23 06:58 | UCONE_ITS ---
Date of service: 07/23/20 Time of Service: 06:59 Assessment and Plan Assessment and plan (1) Hematuria: Status: Acute Assessment and plan: Our usual recommendation would be a cystoscopy and a retrograde pyelogram (since his ureters were not imaged). Here at our facility, this would require a trip to the operating room. I do not believe that he would be a candidate for such a procedure locally. Clinically, it appears that his urine has cleared by stopping the anticoagulants. Also, his urine was microscopically clear on 07/17/2020. I think the likelihood of finding any significant pathology is low enough that we can probably simply use noninvasive testing for now. I would suggest a urine cu lture and a urine cytology. If the culture shows an infection, we could certainly treat it with antibiotics. If the urine cytology is abnormal, we would likely need to refer this gentleman to a tertiary care center where the cystoscopy, retrograde pyelogram and possible transurethral resection of any bladder tumor that is identified could be safely accomplished. History of Present Illness History of Present Illness Chief Complaint: Hematuria Narrative: This is a 74-year-old gentleman who is currently admitted with hip pain after a fall. He has a history of alcohol abuse, COPD, ascites, esophageal varices and malignant melanoma. On admission, there was concern regarding a periprosthetic fracture in the left hip as well as a C3 fracture. The neurosurgery service at [facility] feels the C3 fracture is stable. The Ortho service locally feels there is no periprosthetic fracture that needs to be addressed operatively. I have been asked to see him because he reported gross hematuria with clots yesterday. When I asked him about the blood in his urine, he does not seem to recall what this morning. Instead, he spent quite a bit of time talking about coughing up some blood. He does, however, recall having had multiple ultrasound studies yesterday. He denies any past history of kidney stones, urinary tract infections or urologic surgeries (although his medical records indicate he has had a radical prostatectomy for prostate cancer in 2006 as well as hydrocele surgery). He does have a long smoking history. He was on anticoagulants for DVT prophylaxis when the hematuria was noted. On admission, no hematuria was found on his UA. 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 Geoffrey Dumont Chronic obstructive lung disease (03/15/13) 01/2007 PFTs: FEV1 90%; 06/2019 PFTs: FEV1/FVC 56% --> severe obstructive airways disease with no bronchodilator response Dysphagia 10/17/2018 EGD ([facility]): Smalls's & interval resolution of esophageal varices seen on previous EGD (see Smalls's dx comments for details); 06/06/2019 Barium Swallow: some dysmotility & aspiration --> referred to Speech Therapy 04/12/20 [facility] Esophageal Manometry; 05/17/2020 EGD: Grade I esophageal varices, duodenal erosions w/o bleeding, no obstructive cause for dysphagia Esophageal varices 06/22/2017 EGD (Dr. Cheney): grade 1 w/ stigmata of bleeding; 10/17/2018 EGD ([facility]): no evidence of esophageal or gastric varices on carvedilol 6.25 mg BID Family history of malignant melanoma ov note dated 05/10/20-Dr. Hale Gastroesophageal reflux disease (03/15/13) surgery 08/1990 GERD (gastroesophageal reflux disease) Hepatic cirrhosis (01/14/18) [facility] GI 02/24/2018 Fibroscan: stage 4 liver fibrosis, consistent with cirrhosis with possible portal HTN 06/22/2018 EGD (Dr. 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 Hale Derm Sigmoid diverticulosis (02/01/18) 02/01/2018 colonoscopy Squamous cell carcinoma Face Tobacco use disorder 1.5 PPD Surgical History Colonoscopy - MAC (02/01/18) H/O colonoscopy 05/17/20 at [facility] - no need for further to have any further colonscopy per report H/O endoscopy 05/17/20 [facility] History of esophagogastroduodenoscopy (EGD) (06/22/18) dr cheney, grade I esophageal varices Left shoulder (09/24/07) Marci Fundoplication (03/24/85) Prostatectomy (~05/2007) Repair of incision from Marci fundoplication (03/24/87) right shoulder (03/24/00) Family History Mother , resp failure No problems noted. Father , prostate CA Personal history of malignant neoplasm prostate Malignant melanoma Social History Smoking/Tobacco Use Status: Current every day Tobacco Type: cigarettes Smoking risk assessment performed?: Yes Alcohol Intake: current Alcohol Intake frequency: 3 or more drinks per day Alcohol type: beer and hard liquor Drug use: Never Substance use type: does not use Caregiver/Support person: No Number of Children: 2 Communication Needs: None current occupation: Retired Current gender identity: male What type of physical activity do you participate in: none Seatbelt use: always Water heater temp set <120 deg: Yes Working smoke detector in home: Yes Fire extinguisher in home: Yes Carbon monox detector in home: Yes Firearms in home: No Do you feel safe at home: Yes Do you feel safe in your relationship?: Yes Exam Narrative Exam Narrative: There is clear urine in his urine all on his bedside table I reviewed yesterday's renal ultrasound. I do not see any sign of hydronephrosis or solid renal mass. I do not see any mass protruding into the bladder lumen. His last PSA level is undetectable (2019) Const General: no acute distress and frail appearing Resp Effort & Inspection: normal respiratory effort GI Palpation: soft and no masses Neuro General: patient alert and patient awake Results Last Vital Signs Temp 36.5 C 07/23/20 03:50 Pulse 82 07/23/20 03:50 Resp 19 07/23/20 03:50 BP 123/71 07/23/20 03:50 Pulse Ox 94 07/23/20 03:50 Labs Result diagrams: 07/21/20 07:00 07/22/20 06:31 Labs: Laboratory Results - last 24 hr 07/22/20 06:31 Sodium 135 L Potassium 3.7 Chloride 99 Carbon Dioxide 28.9 Anion Gap 7.1 BUN 8 Creatinine 0.65 L Estimated GFR/1.73 m2 >= 60.00 Glucose 90 Calcium 8.4 L Magnesium 1.8 NT-Pro-B Natriuret Pep 309 H
[2020-07-23 07:47] VITALS: BP 126/68; PULSE 75; RESP 18; TEMP 36.8; O2SAT 92
[2020-07-23] MEDS: Budesonide/Formoterol 160/4.5 6 GM 60 PUFF INH IH (07:56)
[2020-07-23] MEDS: Nicotine 14 MG/24 HR PATCH TD (08:14)
[2020-07-23] MEDS: Cholecalciferol (Vitamin D3) 1,000 UNIT TAB 1000 UNITS PO (08:14)
[2020-07-23] MEDS: Spironolactone 50 MG TAB 100 MG PO (08:14)
[2020-07-23] MEDS: Polyethylene Glycol 3350 17 GM PACKET PO (08:14)
[2020-07-23] MEDS: Furosemide 40 MG/4 ML VIAL IVP (08:14)
[2020-07-23] MEDS: Cyanocobalamin 500 MCG TAB 1000 MCG PO (08:15)
[2020-07-23] MEDS: Thiamine 100 MG TAB PO (08:15)
[2020-07-23] MEDS: Carvedilol 3.125 MG TAB PO (08:15)
[2020-07-23] MEDS: Pantoprazole 40 MG TABCR PO (08:15)
[2020-07-23] MEDS: Docusate Sodium 100 MG CAP PO (08:15)
[2020-07-23] MEDS: Normal Saline Flush 10 ML SYR IVP (08:16)
--- NOTE | 2020-07-23 09:07 | PAPNONF_PTH ---
PATIENT: David Cr LOC: U#:[id number] AGE/SX: 74/M ROOM: 229 RE07/17/[address]: Hamzah Levine : 1945 BED: A DIS: 07/23/2020 SPEC #: [id number] RECD: 07/23/20 12:59 STATUS: FRANCOIS REQ #: [id number] ABEBE: 07/23/20 09:[address]: Hamzah Levine DEPT: [facility] Cytology RECD BY: Masha Siegel ENTERED: 07/23/20 13:00 SP TYPE: SRAAY KWAN DR: MD Stephie Zhao APRN [facility] [[email or web address]] [facility] Tissues: 1 - BODY FLUID CYTO(SPUTUM/URINE)[facility] Procedures: BODY FLUID CYTO(URINE/SPUTUM) Comments: [id number] (TOTAL VOLUME = 40 ml's) (40 ml's URINE & 40 ml's CYTOLYT ADDED)
--- NOTE | 2020-07-23 10:24 | PDOC.CMPRO ---
Care Management Progress Note S/O: Severino remains pleasant in interaction. He continues on IV Lasix 20 mg BID for diuresis and due to blood clots in his urine last evening, a bladder and renal ultrasound will be ordered as well. An echocardiogram and a venous doppler were completed today, in addition to a basic metabolic panel and a magnesium level. Severino remains acute at this time; closely monitored. No change to overall plan. CM will continue to follow. A: Severino is a 74 year old male admitted to [facility] on 07/17/20 for hip contusion and cervical spine fracture. P: Plan remains the same. Severino will discharge to [place] [id number] for short term rehab prior to returning home. [facility] remains closed to admissions. Severino shared that after his short term rehab stay, his daughter would be returning to [place] to stay with him in his home until he is independent. Per PT he required less assistance with mobility and transfers on Wednesday compared to prior. Severino will remain at [facility] until [facility] can accept him for admission. CM will continue to support patient and discharge planning needs.
[2020-07-23 11:20] VITALS: BP 133/74; PULSE 93; RESP 20; TEMP 36.5; O2SAT 97
--- NOTE | 2020-07-23 11:46 | W.PM.PROGNOT ---
Date of Service Date of service: 07/23/20 Time of Service: 11:46 Assessment and Plan Assessment and plan (1) Hip pain: Status: Acute Assessment and plan: no fracture per Orthopedics, will continue pain management, PT/OT (2) C3 cervical fracture: Status: Acute Assessment and plan: stable, discussed with [facility] who recommends ridge collar. no neurologic deficit or pain Qualifiers: Encounter type: initial encounter Fracture type: closed Fracture morphology: other fracture Fracture alignment: nondisplaced Qualified Code(s): S12.291A - Other nondisplaced fracture of third cervical vertebra, initial encounter for closed fracture (3) Alcohol use disorder: Status: Chronic Assessment and plan: no signs of withdrawal, can d/c ciwa thiamine daily (4) Chronic obstructive lung disease: Status: Chronic Assessment and plan: respiratory status stable, continue inhalers add incentive spirometry while hospitalized Qualifiers: COPD type: unspecified COPD Qualified Code(s): J44.9 - Chronic obstructive pulmonary disease, unspecified (5) Gastroesophageal reflux disease: Status: Chronic Assessment and plan: continue pantoprazole daily (6) Hypertension: Status: Chronic Assessment and plan: blood pressure stable. continue home medication and monitor Qualifiers: Hypertension type: essential hypertension Qualified Code(s): I10 - Essential (primary) hypertension (7) Tobacco use disorder: Status: Chronic Assessment and plan: nicotine replacement while hospitalized (8) DVT prophylaxis: Status: Acute Assessment and plan: teds, enoxaparin (9) Discharge planning issues: Status: Acute Assessment and plan: case management following, will benefit from ongoing PT/OT and nursing care. [facility] referrals placed and pending. discussed with DR Doll who is in agreement Subjective Subjective Patient reports: no new complaints Exam Const General: cooperative, no acute distress, disheveled, frail appearing and ill appearing chronically Nutritional Appearance: malnourished Orientation: alert, awake and not oriented x3 HENMT Head: normal to inspection and signs of trauma (old dried blood and bruising to right forehead) Ears: hearing grossly normal bilaterally, external ears normal and TM's normal bilaterally General nose exam: external nose normal Face and sinus: normal facial exam Mouth: moist mucous membranes abnormal Throat: posterior oropharynx normal Eyes General: appearance normal, both eyes and all related structures Eyelids: eyelids normal Pupils: PERRL EOM: EOM intact bilaterally Neck Neck: normal visual inspection (wearing a ridge c collar) Chest Chest: normal inspection of the chest Resp Effort & Inspection: normal respiratory effort and able to speak in complete sentences Auscultation: diminished lung sounds (bilateral bases) Cardio Rate: regular rate Rhythm: regular rhythm GI Inspection: normal to inspection Palpation: soft, not firm, no guarding, no hepatosplenomegaly, hernia (large abdominal, soft, non tender), no masses and nontender Auscultation: normal bowel sounds Back/Spine/Pelvis Back: no CVA tenderness Skin General skin exam: ecchymosis (scattered, skin tears, bruising. all various stages of healing) Neuro General: patient alert and patient awake Speech: speech normal Motor: muscle tone normal throughout Sensory Exam: no sensory deficits noted Extrem General: normal to inspection, full ROM and edema Laterality: bilateral (lower with chronic discoloration consistent with venous stasis) Psych Appearance: grossly normal Mental Status: mental status grossly normal Speech and Movement: speech and movement normal Affect: normal affect Thought Process: normal Objective Last Vital Signs Temp 36.5 C 07/23/20 11:20 Pulse 93 H 07/23/20 11:20 Resp 20 07/23/20 11:20 BP 133/74 07/23/20 11:20 Pulse Ox 97 07/23/20 11:20
[2020-07-23 12:17] LABS: Source Nasopharynx
--- NOTE | 2020-07-23 12:27 | W.PM.DS.N ---
Date of service: 07/23/20 Time of Service: 12:27 DS: Diagnosis Discharge Diagnosis (1) C3 cervical fracture: Status: Acute Asessment and Plan: Stable and pain-free. C-collar only when up and walking for 6-8 wks (2) Hip pain: Status: Acute Asessment and Plan: Per ortho, the fracture seen on CT was likely already present prior to surgery and is stabilized by the hardware in place. Recommend ambulation with a walker, WBAT, and outpatient follow up. (3) Alcohol use disorder: Status: Chronic Asessment and Plan: continue thiamine cessation discussed (4) Chronic obstructive lung disease: Status: Chronic Asessment and Plan: has been stable, continue home medications (5) Tobacco use disorder: Status: Chronic Asessment and Plan: on nicotine replacement while hospitalized. (6) Hematuria: Status: Acute Asessment and Plan: seen by Dr Beckman. typical recommendations would be for cystoscopy and a retrograde pyelogram (since his ureters were not imaged) but would recommend procedure be done at a tertiary care facility d/t chronic morbidities. Since it appears that his urine has cleared by stopping the anticoagulants and was microscopically clear on 07/17/2020, recommendations for a urine culture and a urine cytology which was collected and pending at discharge. If the culture shows an infection, it should be treated accordingly. If the urine cytology is abnormal, he would likely need referral to a tertiary care center where the cystoscopy, retrograde pyelogram and possible transurethral resection of any bladder tumor that is identified could be safely accomplished. Discharge Plan Disposition Patient Disposition: SNF (LEVEL [facility]) [facility] Condition: Stable Discharge Details Reason For Visit: HIP CONTUSION,CERVICAL SPINE FRACTURE,ALCOHOL WITH Admit Date/Time: 07/17/20 18:54 Admit Provider: Hamzah Levine Attending Provider: Hamzah Levine Primary Care Provider: Stephie Jones Hospital Course Hospital Course: 74 year old male who had a ORIF left hip 6 weeks ago, who presented to the ED after a mechanical fall with question of prosthetic fracture but cleared by ortho to weight bear as tolerated. Incidental finding of C3 fracture, stable and must wear hard collar for 6-8 weeks, no symptoms of pain or neurologic deficit. no symtpoms of alcohol withdrawal while hospitalized. has been medically stable. course complicated by some hematuria which has resolved. had reports of bloody sputum which also resolved. working with physical therapy and will be discharged to [facility] for ongoing rehab. covid test negative. discharged discussed with dr Martin [place] Meds and New Rx's Prescriptions: New polyethylene glycol 3350 17 gram Powder In Packet 17 g PO DAILY Qty: 30 RF: 0 tramadol 50 mg Tablet 50 mg PO Q6H PRN PRNQty: 10 RF: 0 spironolactone 50 mg Tablet 100 mg PO DAILY Qty: 0 RF: 0 nicotine 14 mg/24 hr Patch 24 Hour 14 mg transdermal DAILY Qty: 14 RF: 0 cholecalciferol (vitamin D3) 25 mcg (1,000 unit) Tablet 1,000 unit PO DAILY Qty: 30 RF: 0 Continued trazodone 50 mg tablet 50 mg PO QHS PRN (Reason: sleep) Qty: 20 RF: 0 Metamucil 660 GM powder 1 - 2 tbs PO DAILY RF: 0 budesonide-formoterol [Symbicort] 160-4.5 mcg/actuation Hfa Aerosol Inhaler 2 puff inhalation BID Qty: 10.2 RF: 0 acetaminophen [Tylenol] 325 mg Tablet 650 mg PO Q4H PRN PRNQty: 0 RF: 0 thiamine mononitrate (vit B1) [Vitamin B-1 (mononitrate)] 100 mg Tablet 100 mg PO DAILY Qty: 0 RF: 0 polyethylene glycol 3350 17 gram Powder In Packet 17 g PO DAILY PRN PRN (Reason: Constipation) Qty: 0 RF: 0 pantoprazole 40 mg Tablet,Delayed Release (Dr/Ec) 40 mg PO DAILY@0730 Qty: 30 RF: 0 docusate sodium [Colace] 100 mg Capsule 100 mg PO TID Qty: 0 RF: 0 cyanocobalamin (vitamin B-12) [Vitamin B-12] 500 mcg Tablet 1,000 mcg PO DAILY Qty: 0 RF: 0 carvedilol 6.25 mg tablet 3.125 mg PO BID Qty: 180 RF: 3 Changed furosemide [Lasix] 20 mg tablet 40 mg PO BID DIURETIC Qty: 90 RF: 0 Discontinued atorvastatin 40 mg tablet 40 mg PO DAILY Qty: 90 RF: 3 Discharge Instructions Instructions: Cervical Fracture (DC) Additional Instructions: wear c collar at all times when ambulating, can have off when seated, sleeping and eating Referrals: Toñito Beckman MD [ [facility] STAFF PHYSICIAN] - Stephie Jones NP [Primary Care Provider] - Activity:: c collar with ambulation Equipment/Supplies:: c collar Diet:: As Tolerated Discharge Orders Discharge Orders: Discharge Order (Routine); Ordered 07/23/20 Ordered By: Spring Lopez DS: Summary Status at Discharge Functional status at discharge: uses cane/walker Overall status at discharge: patient is progressing back to baseline Mental Status: mental status grossly normal Speech and Movement: speech and movement normal Mood: congruent mood Affect: normal affect Exam Narrative Exam Narrative: General: cooperative, no acute distress, disheveled, frail appearing older than stated age chronically ill appearing Nutritional Appearance: malnourished Orientation: alert, awake and oriented x3 HENMT Head: normal to inspection and signs of trauma (old bruising to right forehead) Ears: hearing grossly normal bilaterally, external ears normal and TM's normal bilaterally General nose exam: external nose normal Mouth: moist mucous membranes slightly dry Throat: posterior oropharynx normal Eyes General: appearance normal, both eyes and all related structures Pupils: PERRL EOM: EOM intact bilaterally Neck Neck: normal visual inspection no tenderness. Chest Chest: normal inspection of the chest Resp Effort & Inspection: normal respiratory effort and able to speak in complete sentences Auscultation: diminished lung sounds (bilateral bases) Cardio Rate: regular rate Rhythm: regular rhythm GI Inspection: normal to inspection Palpation: soft, no masses and nontender Auscultation: normal bowel sounds Back/Spine/Pelvis Back: no CVA tenderness Skin General skin exam: ecchymosis (scattered, skin tears, bruising. all various stages of healing) Neuro General: patient alert and patient awake Speech: speech normal Motor: muscle tone normal throughout Sensory Exam: no sensory deficits noted Extrem General: normal to inspection, full ROM and edema Laterality: bilateral (lower with chronic discoloration consistent with venous stasis) Psych Appearance: grossly normal Mental Status: mental status grossly normal Speech and Movement: speech and movement normal Affect: normal affect Thought Process: normal Psych Mental Status: mental status grossly normal Speech and Movement: speech and movement normal Mood: congruent mood Affect: normal affect DS: Data Vitals/I&O Vitals and I&O: Vital Signs Temperature 36.5 C 07/23/20 11:20 Temperature Source Tympanic 07/23/20 11:20 Pulse 93 H 12/08/20 11:20 Pulse Rhythm Regular 07/23/20 09:35 Pulse 70 07/17/20 20:20 Respiratory Rate 20 07/23/20 11:20 Respiratory Effort 07/23/20 09:35 Respiratory Depth Normal 07/23/20 09:35 Respiratory Pattern Normal 07/23/20 09:35 Blood Pressure 133/74 07/23/20 11:20 Blood Pressure Mean 76 07/17/20 20:16 Blood Pressure Position Supine 07/17/20 12:55 Pulse Oximetry 97 07/23/20 11:20 Oxygen Delivery Method Room Air 07/23/20 11:20 Oxygen Flow Rate 0 07/23/20 11:20 Pain Level 0 07/23/20 11:20 Comment 07/22/20 05:59 Intake & Output 07/22/20 07/23/20 07/23/20 23:59 11:59 23:59 Intake Total 250 / 730 600 / 600 Output Total 1580 / 2630 975 / 975 Balance -1330 / -1900 -375 / -375 Weight 65.7 kg Intake: IV Oral 240 / 720 600 / 600 Output: Urine 1580 / 2630 975 / 975 Other: Urine Color Straw Pale Urine Appearance Clear Clear Urine Odor Strong None Comment 500 mL in urinal, large volume on floor and chair. Voiding Methods Urinal Urinal Data Completed and Pending Labs on day of discharge: Labs from last 24 hours 07/23/20 12:07 COVID-19 Source Pending COVID-19 PCR Pending Influenza Type A (PCR) Pending Influenza Type B (PCR) Pending RSV (PCR) Pending 07/23/20 09:10 Urine - Clean Catch Urine Culture - Pending Preliminary micro results at discharge 07/23/20 09:10 Urine Culture - Pending Urine - Clean Catch [facility] Medical History 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 Hale Derm Chronic obstructive lung disease (03/15/13) 01/2007 PFTs: FEV1 90%; 06/2019 PFTs: FEV1/FVC 56% --> severe obstructive airways disease with no bronchodilator response Dysphagia 10/17/2018 EGD ([facility]): Smalls's & interval resolution of esophageal varices seen on previous EGD (see Smalls's dx comments for details); 06/06/2019 Barium Swallow: some dysmotility & aspiration --> referred to Speech Therapy 04/12/20 [facility] Esophageal Manometry; 05/17/2020 EGD: Grade I esophageal varices, duodenal erosions w/o bleeding, no obstructive cause for dysphagia Esophageal varices 06/22/2017 EGD (Dr. oHang): grade 1 w/ stigmata of bleeding; 10/17/2018 EGD ([facility]): no evidence of esophageal or gastric varices on carvedilol 6.25 mg BID Family history of malignant melanoma ov note dated 05/10/20-Dr. Hale Gastroesophageal reflux disease (03/15/13) HH surgery 08/1990 GERD (gastroesophageal reflux disease) Hepatic cirrhosis (01/14/18) [facility] GI 02/24/2018 Fibroscan: stage 4 liver fibrosis, consistent with cirrhosis with possible portal HTN 06/22/2018 EGD (Dr. 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 Hale Derm Sigmoid diverticulosis (02/01/18) 02/01/2018 colonoscopy Squamous cell carcinoma Face Tobacco use disorder 1.5 PPD Surgical History Colonoscopy - MAC (02/01/18) H/O colonoscopy 05/17/20 at [facility] - no need for further to have any further colonscopy per report H/O endoscopy 05/17/20 [facility] History of esophagogastroduodenoscopy (EGD) (06/22/18) dr hoang, grade I esophageal varices Left shoulder (09/24/07) Marci Fundoplication (03/24/85) Prostatectomy (~05/2007) Repair of incision from Marci fundoplication (03/24/87) right shoulder (03/24/00) Family History Mother , resp failure No problems noted. Father , prostate CA Personal history of malignant neoplasm prostate Malignant melanoma Social History Smoking/Tobacco Use Status: Current every day Tobacco Type: cigarettes Smoking risk assessment performed?: Yes Alcohol Intake: current Alcohol Intake frequency: 3 or more drinks per day Alcohol type: beer and hard liquor Drug use: Never Substance use type: does not use Caregiver/Support person: No Number of Children: 2 Communication Needs: None current occupation: Retired Current gender identity: male What type of physical activity do you participate in: none Seatbelt use: always Water heater temp set <120 deg: Yes Working smoke detector in home: Yes Fire extinguisher in home: Yes Carbon monox detector in home: Yes Firearms in home: No Do you feel safe at home: Yes Do you feel safe in your relationship?: Yes
--- NOTE | 2020-07-23 12:54 | PT.INTREAT ---
Date of service: 07/23/20 Time of Service: 10:30 PT Notes Visit Reasons: HIP CONTUSION,CERVICAL SPINE FRACTURE,ALCOHOL WITH Inpatient Physical Therapy Treatment Note [facility] Date: 07/23/2020 PRECAUTIONS: Fall, WBAT L SUBJECTIVE: Severino reports that he cannot walk today, I couldn't even make it from my bed to the commode this morning because I was in so much pain. Patient also reports that wearing the cervical collar makes him anxious and stressed. OBJECTIVE: PAIN: No c/o pain BED MOBILITY/TRANSFERS Sit-stand: CGA x2 Stand-sit: CGA GAIT Assistive Device: FWW Weight bearing: WBAT L Assist: CGA Distance: 15' Deviation: Slow pace, increased SOB, increased fatigue THEREX: Patient was instructed in several lower extremity strengthening exercises, while seated at edge of chair, as per flow sheet. Patient required rest breaks between exercises. TOILETING: Patient toileted independently with urinal ASSESSMENT: Patient tolerated gait training with complaints of increased SOB and increased fatigue. He demonstrates a slow pace requiring CGA for safety. PLAN: Continue with global strengthening, gait and transfer training at SNF level rehab. TREATMENT CODE/TIME: 30 minutes; [id number], [id number]
[2020-07-23 13:04] LABS: COVID-19 PCR Negative (Negative); Influenza A PCR Negative (Negative); Influenza B PCR Negative (Negative); RSV PCR Negative (Negative)
--- NOTE | 2020-07-23 15:58 | CMDISCH_ITS ---
LACE Index Scoring Tool - Questions: Length of Stay (in days): 4 - 6 Acuity (Admit via E.D.?): Yes Comorbidities: Chronic Pulmonary Disease, Any Tumor E.D. Visits: 2 - Answers: Total Score: 14 Risk of Readmission: High Risk Care Management Discharge Reason for Hospitalization: Hip contusion, cervical spine fracture Discharge Plan: Severino will discharge to [facility] for short term rehab prior to returning home. Severino shared that after his short term rehab stay, his daughter would be returning to [place] to stay with him in his home until he is independent. He will transport via the facility's W/C van. Patient/Family Education Needs: Review discharge instructions, transfer requirements, discuss care needs Ask Me Three. Services Needed at Discharge: Assisted Facility ([facility]), Transportation (W/C Van)
--- NOTE | 2020-07-26 16:50 | PT.INDS ---
Date of service: 07/23/20 PT Notes Visit Reasons: HIP CONTUSION,CERVICAL SPINE FRACTURE,ALCOHOL WITH Physical Therapy Inpatient Discharge Summary Date: 07/23/2020 Dates of service: 07/21/2020 through 07/23/2020 This is a clinical summary of care provided on the duration of dates listed above. No charge was made in the completion of this documentation. Referring Doctor: Hamzah Levine MD PT Orders: PT CONSULT: Eval/treat Precautions: Fall. Standard. Cervical collar on at all times. WBAT in BUE/LE. Patient Profile/Admitting Diagnosis: David is a 74-year-old male who presented to the ED on 07/17/2020 with chief complaints of left hip pain status post fall at home. He is also status post ORIF on his fifth week postoperatively. Patient is negative for left periprosthetic fracture but has an incidental finding of an oblique mildly displaced vertebral body fracture of C3 for which the cervical collar was ordered to be worn at all times. Patient has been accepted into swing bed status for continued rehabilitation until senior living placement is available PMHX: Medical History 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 Geoffrey Dumont Chronic obstructive lung disease (03/15/13) 01/2007 PFTs: FEV1 90%; 06/2019 PFTs: FEV1/FVC 56% --> severe obstructive airways disease with no bronchodilator response Dysphagia 10/17/2018 EGD ([facility] [place]): Smalls's & interval resolution of esophageal varices seen on previous EGD (see Smalls's dx comments for details); 06/06/2019 Barium Swallow: some dysmotility & aspiration --> referred to Speech Therapy 04/12/20 [facility] [place] Esophageal Manometry; 05/17/2020 EGD: Grade I esophageal varices, duodenal erosions w/o bleeding, no obstructive cause for dysphagia Esophageal varices 06/22/2017 EGD (Dr. Cheney): grade 1 w/ stigmata of bleeding; 10/17/2018 EGD ([facility] [place]): no evidence of esophageal or gastric varices on carvedilol 6.25 mg BID Family history of malignant melanoma ov note dated 05/10/20-Dr. Hale Gastroesophageal reflux disease (03/15/13) surgery 08/1990 GERD (gastroesophageal reflux disease) Hepatic cirrhosis (01/14/18) [facility] GI 02/24/2018 Fibroscan: stage 4 liver fibrosis, consistent with cirrhosis with possible portal HTN 06/22/2018 EGD (Dr. 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 Hale Derm Sigmoid diverticulosis (02/01/18) 02/01/2018 colonoscopy Squamous cell carcinoma Face Tobacco use disorder 1.5 PPD Surgical History Colonoscopy - MAC (02/01/18) H/O colonoscopy 05/17/20 at [facility] [place] - no need for further to have any further colonscopy per report H/O endoscopy 05/17/20 [facility] History of esophagogastroduodenoscopy (EGD) (06/22/18) Dr Cheney, grade I esophageal varices Left shoulder (09/24/07) Marci Fundoplication (03/24/85) Prostatectomy (~05/2007) Repair of incision from Marci fundoplication (03/24/87) right shoulder (03/24/00) Social History/Home Situation: Lives alone in a private home with 2 steps to enter through his garage that leads onto a deck with a grab bar. There is another step from the deck into his home with a grab bar. Has a multilevel home but reports all of his essentials are on the main floor of the house. Equipment Owned/DME: [facility] Subjective: NT. See most recent [facility]YS[facility] [employer] notes. Objective: General Observation: NT. See most recent [facility] [employer] notes. Mental Status: NT. See most recent [facility] [employer] notes. Pain: NT. See most recent [facility] [employer] notes. ROM: Right Upper Extremity: Shoulder Flexion WFL. Shoulder abduction WFL. Elbow flexion WFL. Wrist flexion WFL. Opening and closing of hand WFL. Left Upper Extremity: Shoulder Flexion WFL. Shoulder abduction WFL. Elbow flexion WFL. Wrist flexion WFL. Opening and closing of hand WFL. Right Lower Extremity: Hip abduction WFL. Knee flexion WFL. Ankle dorsiflexion WFL. Ankle plantarflexion WFL. Left Lower Extremity: Hip flexion 95. Hip abduction 15-20. Knee flexion beyond 95. Ankle dorsiflexion past neutral. Ankle plantarflexion WFL. L hip Strength: Right Upper Extremity: Shoulder flexors 4-/5. Shoulder abductors 4-/5. Elbow flexors 4-/5. Elbow extensors 4-/5. Chief Mate strong. Left Upper Extremity: Shoulder flexors 4-/5. Shoulder abductors 4-/5. Elbow flexors 4-/5. Elbow extensors 4-/5. Chief Mate strong. Right Lower Extremity: Hip flexors 3+/5. Hip abductors 3+/5. Knee flexors 4-/5. Knee extensors 4-/5. Ankle dorsiflexors 4-/5. Ankle plantarflexors 4-/5. Left Lower Extremity: Hip flexion 3+ out of 5, hip abduction 3+ out of 5, knee flexion 3+ out of 5, knee extension 3+ out of 5 Sensation: Intact as to pain and pressure on bilateral lower extremities. Bed Mobility/Transfers: Not assessed as patient was in recliner Supine to sit not assessed as patient was in recliner Sit to stand contact-guard assist Stand to sit contact-guard assist Gait: 15 feet using front wheeled walker requiring contact-guard assist with WBAT on B LE. Reported shortness of breath and fatigue after activity. Balance: Static Sitting: Normal Dynamic Sitting: Good Static Standing: Poor Dynamic Standing:poor Assessment: David continues to demonstrates significant functional mobility decline and requires assist of 2 for all mobility ADL performance using a front wheeled walker, difficulty with walking, generalized weakness, and increased risk for falls due to admitting diagnosis and comorbidities. Patient continues to present with clinical signs and symptoms consistent with current/admitting diagnoses that have resulted to mobility limitations, gait instability, generalized weakness, and impairment of motor control as demonstrated by the following impairment level findings: 1. Decreased strength to BUE/LE major muscle groups 2. Impaired standing balance 3. Impaired activity tolerance 4. Limitation of joint range of motion in L LE 5. Pain in L LE Impairments are contributing to contribute to the following functional limitations: 1. Dependent bed mobility skills 2. Increased dependence with transfers 3. Inability to safely ambulate without assistive device and physical assistance 4. Increase completion time for mobility ADL performance 5. Increased fall risk 6. Inability to negotiate steps alone safely Goals: Goals X1 week 1. Supine-Sit independent NOT MET 2. Sit-Supine independent NOT MET 3. Sit-Stand independent NOT MET 4. Stand-Sit independent NOT MET 5. Bed-Chair independent NOT MET 6. Chair-Bed independent NOT MET 7. Independent gait on level surface with use of least restrictive device for at least 300 feet without report of pain nor dyspnea NOT MET 8. Independent stair negotiation while holding onto bilateral rails for at least 10 steps without report of pain nor dyspnea NOT MET 9. Independent with home exercise program NOT MET 10. Good static and dynamic standing balance/tolerance NOT MET DISCHARGE RECOMMENDATIONS: Patient will benefit from senior living facility placement for continued skilled physical therapy services in order to progress mobility level, strength, and balance in preparation for a safe discharge to home. TREATMENT CODE/TIME: [place] Thank you for the opportunity to participate in the care of this patient. Brittnee Thornton PT, DPT, CLT [facility] [place], [place]
== END 2020-07-23 14:43 | disposition skilled nursing facility (03) | DRG 86 ==
LOC: ER 19:05 → MS 20:38
PROVIDERS: Internal Medicine; Nurse Practitioner Acute Care; Admitting Provider General Practice; Emergency Provider Physician Assistant; PCP Nurse Practitioner Family; Visit Provider General Practice
DX: S02.842A Fracture of lateral orbital wall, left side, initial encounter for closed fracture; S12.290A Other displaced fracture of third cervical vertebra, initial encounter for closed fracture; E87.1 Hypo-osmolality and hyponatremia; K76.6 Portal hypertension; I85.10 Secondary esophageal varices without bleeding; S02.2XXA Fracture of nasal bones, initial encounter for closed fracture; S70.02XA Contusion of left hip, initial encounter; W18.39XA Other fall on same level, initial encounter; Z91.81 History of falling; J44.9 Chronic obstructive pulmonary disease, unspecified; K21.9 Gastro-esophageal reflux disease without esophagitis; I10 Essential (primary) hypertension; E78.5 Hyperlipidemia, unspecified; F10.10 Alcohol abuse, uncomplicated; D64.9 Anemia, unspecified; G25.81 Restless legs syndrome; K57.30 Diverticulosis of large intestine without perforation or abscess without bleeding; F17.210 Nicotine dependence, cigarettes, uncomplicated; Z85.46 Personal history of malignant neoplasm of prostate; K70.30 Alcoholic cirrhosis of liver without ascites; I27.20 Pulmonary hypertension, unspecified; R60.0 Localized edema; R31.0 Gross hematuria; S72.142D Displaced intertrochanteric fracture of left femur, subsequent encounter for closed fracture with routine healing; M97.02XD Periprosthetic fracture around internal prosthetic left hip joint, subsequent encounter
CPT/HCPCS: 36415; 74177; 76770; 80048; 80053; 80307; 86850; 86900; 86901; 87077; 93005; 94640; 96361; 96365; 96366; 96375; 97110; 97163; 97530; 99221; 99222; 99232; 99233; 99239; 99252; 99285; J1650; U0003; 70450; 70486; 71260; 72040; 72125; 73080; 73502; 73700; 80320; 81003; 83735; 83880; 84484; 85025; 85610; 85730; 87086; 87186; 88104; 93010; 93306; 93970; 94668; J0131; J1940; J1941; J2060; J3490

== ENCOUNTER 2020-07-23 21:02 | Outpatient (REF) | payer MEDICARE, BC, SELFPAY ==
[2020-07-25 17:46] LABS: COVID-19 RT-PCR Result Not Detected ((See Note))
== END 2020-07-23 21:22 ==
LOC: NCHCN 21:02
PROVIDERS: PCP Nurse Practitioner Family; Visit Provider Nurse Practitioner Adult Health
DX: Z11.59 Encounter for screening for other viral diseases (principal)
CPT/HCPCS: U0003

== ENCOUNTER 2020-07-26 21:43 | Outpatient (REF) | payer MEDICARE, BC, SELFPAY ==
[2020-07-26 17:18] LABS: Abs Immature Grans 0.03 10^3/uL (0.0-0.06); Absolute Basophil Count 0.06 10^3/uL (0.0-0.2); Absolute Eosinophil Count 0.25 10^3/uL (0.0-0.7); Absolute Lymphocyte Count 1.07 10^3/uL (1.2-3.4); Absolute Monocyte Count 0.99 10^3/uL (0.1-0.8); Basophils % 0.7; Eosinophils % 2.8; HCT 33.1 % (40.0-50.0); HGB 10.1 g/dL (13.5-17.5); Immature Grans % 0.3; MCH 30.5 pg (27.0-33.0); MCHC 30.5 % (32.0-36.0); MPV 8.8 fL (8.0-11.0); Monocytes % 11.1; Neutrophils % 73.1; Nucleated RBC 0 %; Platelet Count 371 10^3/uL (130-400); RBC 3.31 10^6/uL (4.36-5.78); RDW 14.6 % (11.8-14.1)
[2020-07-26 17:34] LABS: ALT 28 U/L (16-63); AST 35 U/L (15-37); Albumin 3.3 g/dL (3.4-5.0); Alkaline Phosphatase 161 U/L (46-116); BUN 13 mg/dL (7-18); Bilirubin, Total 0.3 mg/dL (0.2-1.0); CREATININE 0.83 mg/dL (0.70-1.30); Calcium 8.8 mg/dL (8.5-10.1); Chloride 97 mmol/L (98-107); Glucose 100 mg/dL (74-106); Potassium 4.2 mmol/L (3.5-5.1); Sodium 134 mmol/L (136-145); TSH 3.12 uIU/mL (0.36-3.74); Total Protein 7.2 g/dL (6.4-8.2)
[2020-07-29 05:20] LABS: Vitamin D 25 Total 48.7 ng/ml (30-100)
== END 2020-07-26 22:03 ==
LOC: LBN 21:43
PROVIDERS: PCP Nurse Practitioner Family; Visit Provider Nurse Practitioner Adult Health
DX: M62.81 Muscle weakness (generalized) (principal); K74.60 Unspecified cirrhosis of liver; E78.5 Hyperlipidemia, unspecified; S12.200D Unspecified displaced fracture of third cervical vertebra, subsequent encounter for fracture with routine healing
CPT/HCPCS: 80053; 82306; 84443; 85025

== ENCOUNTER 2020-07-28 14:15 | Outpatient (REF) | payer MEDICARE, BC, SELFPAY ==
[2020-07-30 17:37] LABS: COVID-19 RT-PCR Result Not Detected ((See Note))
== END 2020-07-28 14:35 ==
LOC: LBN 14:15
PROVIDERS: PCP Nurse Practitioner Family; Visit Provider Nurse Practitioner Adult Health
DX: Z11.59 Encounter for screening for other viral diseases (principal)
CPT/HCPCS: U0003

== ENCOUNTER 2020-08-02 18:32 | Outpatient (REF) | payer MEDICARE, BC, SELFPAY ==
[2020-08-05 09:58] LABS: COVID-19 RT-PCR Result Not Detected ((See Note))
== END 2020-08-02 18:52 ==
LOC: LBN 18:32
PROVIDERS: PCP Nurse Practitioner Family; Visit Provider Nurse Practitioner Adult Health
DX: Z11.59 Encounter for screening for other viral diseases (principal)
CPT/HCPCS: U0003

== ENCOUNTER 2020-08-08 10:57 | Inpatient (IN) | payer MEDICARE, BC, SELFPAY ==
[2020-08-08] VITALS (36 sets, daily range): BP systolic 120–144; BP diastolic 56–90; PULSE 72–93; RESP 16–28; TEMP 35.4–37; O2SAT 88–97
--- NOTE | 2020-08-08 11:08 | ED.GENADUL_ITS ---
Discharge Plan Disposition Patient Disposition: [facility] INPATIENT Condition: Stable Discharge Details Clinical Impression: Fever, Abscess of lower lobe of right lung with pneumonia Admit Date/Time: 08/08/20 16:01 Admit Provider: Bettye Ramos Attending Provider: Bettye Ramos Primary Care Provider: Stephie Jones ED Provider: Corine Dill Medical Decision Making 1130 -- 74-year-old male with a history of chronic alcohol abuse with history of Smalls's esophagus, esophageal varices, GERD, hypertension, hyperlipidemia with history of recent fall resulting in periprosthetic hip fracture, C3 fracture for which she is still wearing a collar. He left the rehab AMA 4 days ago. Home health noted a temp of 102.9 today and referred him here for evaluation. He is alert and oriented x3. He is currently afebrile at 98.3. Remainder of his vitals are within normal limits. He has chronic bilateral 2+ pitting leg edema. His lung sounds are diminished at the bases. His abdomen is soft and nontender. He has a cervical collar present but is able to move all of his extremities. No evidence of wounds. Differential diagnosis includes UTI, pneumonia, coronavirus, viral illness. Will place an IV, screening labs, urinalysis, CT chest abdomen pelvis and reassess. Labs reviewed. White blood cell count 15. Lactate 1.2. Troponin negative. Normal AST and ALT with slight elevation in alk phos compared to previous. Troponin negative. Urinalysis notes blood but no infection. CT chest abdomen pelvis noted: No evidence of pulmonary embolism. Large right lower lobe infiltrate with proximally 7 centimeter area focal low- density suspicious for an abscess. Underlying emphysematous changes and scarring greater in the upper lobes. Virtual radiology reading of CT abdomen noted questionable dilated common bile duct. This was read as normal per radiologist. 1430 -- Case discussed with [facility] pulmonology who reviewed imaging and agrees with plan for vancomycin and Zosyn and does not see an acute indication for transfer. If lesion continues to cavitate, may need longer antibiotic treatment. If it fails to resolve may need a bronchoscopy at a later time. Case also discussed with [facility] GI who reviewed the images and states based on patient's history and lab work, presentation does not appear consistent with cholangitis and does not see an acute indication for transfer. If patient's bilirubin or LFTs become elevated, can consider abdominal ultrasound or an ERCP as outpatient. Case discussed with hospitalist accepts patient for admission. Medical Records Medical records reviewed: Yes I reviewed the patient's medical records. Imaging Data Radiologic Study: Radiologist's impression: CT CHEST PE ABD PELVIS W CLINICAL HISTORY: fever, chronic sob. TECHNIQUE: Imaging Protocol: Axial CT angiography was performed with multi- slice acquisition and multi-planar and/or 3D reconstructions. CONTRAST MATERIAL: Intravenous: Omnipaque 350 Contrast volume:100 ml Oral: No COMPARISON: CT CT CHEST/ABD/PEL W from 07/17/2020 FINDINGS: Chest CT: Pulmonary Arteries: The pulmonary arteries are well opacified with IV contrast. No evidence of filling defect to suggest pulmonary emboli. There is prominence of the pulmonary arteries, consistent with pulmonary artery hypertension. Pulmonary parenchyma: There are again noted to be underlying emphysematous changes greater in the upper lobes. There is stable upper lobe pulmonary scarring. There is now a dense infiltrate in the right lower lobe, not seen on the previous exam. There is a low-density collection with the with a few air bubbles adjacent to the infiltrate which is suspicious for an abscess. It measures approximately 7 cm in diameter. There was no cavity visible on the pr evious CT. The findings are consistent with pneumonia and pulmonary abscess. Pleura: There is a small right pleural effusion. Heart: The heart is not dilated. Aorta: Thoracic aorta non-dilated. Mild atherosclerotic changes. Abdomen and pelvic CT: A hiatal hernia is again noted. The liver has a cirrhotic appearance. There is a small amount of ascites. There is no change in the degree of biliary dilatation. There are no visible gallstones or common duct stones. The spleen is normal in size. The pancreas is atrophic. The adrenals and kidneys are unremarkable. There is prominent diverticulosis of the sigmoid but no evidence of diverticulitis. There is no small bowel dilatation or bowel wall thickening. The aorta and iliac arteries are heavily calcified. There is no evidence of an aneurysm. The patient appears to be status post prostatectomy. The bladder is somewhat distended but unremarkable. Hardware is again noted in the left proximal femur. There is no change in hardware or fracture alignment. Degenerative changes are seen in the thoracic and lumbar spine. There has been previous abdominal wall hernia repair with mesh in place. There is a fatty hernia toward the left of the mesh in the mid abdomen. No bowel is seen herniating through the defect. IMPRESSION: No evidence of pulmonary embolism. Large right lower lobe infiltrate with proximally 7 centimeter area focal low- density suspicious for an abscess. Underlying emphysematous changes and scarring greater in the upper lobes. No acute abnormality in the abdomen or pelvis. Lab Data Lab results reviewed: Yes I reviewed the patient's lab results. Labs: 08/08/20 12:25 Blood Blood Culture - Pending 08/08/20 11:38 Blood Blood Culture - Pending Laboratory Tests Range/Units 08/08/20 08/08/20 08/08/20 11:38 11:38 11:38 WBC (4.4-10.8) 10^3/uL 15.36 H RBC (4.36-5.78) 10^6/uL 3.54 L Hgb (13.5-17.5) g/dL 10.4 L Hct (40.0-50.0) % 32.8 L MCV (80-95) fL 92.7 MCH (27.0-33.0) pg 29.4 MCHC (32.0-36.0) % 31.7 L RDW (11.8-14.1) % 14.4 H Plt Count (130-400) 10^3/uL 444 H MPV (8.0-11.0) fL 8.0 Immature Gran % 0.8 Neutrophils % 83.2 Lymphocytes % 5.5 Monocytes % 9.4 Eosinophils % 0.8 Basophils % 0.3 Nucleated RBC % % 0 Absolute Neutrophils (1.2-6.7) 10^3/uL 12.78 H Absolute Lymphocytes (1.2-3.4) 10^3/uL 0.84 L Absolute Monocytes (0.1-0.8) 10^3/uL 1.44 H Absolute Eosinophils (0.0-0.7) 10^3/uL 0.12 Absolute Basophils (0.0-0.2) 10^3/uL 0.05 PT (9.3-11.0) sec INR (0.9-1.1) APTT (21.0-27.5) sec VBG Lactate (0.6-1.4) mmol/L 1.2 Sodium (136-145) mmol/L 128 L Potassium (3.5-5.1) mmol/L 4.1 Chloride (98-107) mmol/L 95 L Carbon Dioxide (21.0-32.0) mmol/L 25.4 Anion Gap (3-11) mmol/L 7.6 BUN (7-18) mg/dL 12 Creatinine (0.70-1.30) mg/dL 0.76 Estimated GFR/1.73 m2 (mL/min/1.73m2) >= 60.00 Glucose (74-106) mg/dL 102 Calcium (8.5-10.1) mg/dL 8.6 Magnesium (1.8-2.4) mg/dL 2.1 Total Bilirubin (0.2-1.0) mg/dL 0.4 AST (15-37) U/L 37 ALT (16-63) U/L 38 Alkaline Phosphatase (46-116) U/L 202 H Troponin I (<0.06) ng/mL < 0.05 Total Protein (6.4-8.2) g/dL 8.0 Albumin (3.4-5.0) g/dL 2.7 L Urine Color (Yellow) Urine Clarity (Clear) Urine pH (5-8) Ur Specific [place] (1.005-1.025) Urine Protein (Negative) mg/dL Urine Ketones (Negative) mg/dL Urine Blood (Negative) Urine Nitrite (Negative) Urine Bilirubin (Negative) Urine Urobilinogen (Up TO 0.2) EU/dL Ur Leukocyte Esterase (Negative) Urine RBC (0-2) HPF Urine WBC (0-5) HPF Ur Epithelial Cells (Negative) HPF Urine Crystals (Negative) HPF Urine Bacteria (Negative) HPF Urine Casts (Negative) LPF Urine Mucus (Negative) Ur Culture Indicated? Urine Glucose (Negative) mg/dL COVID-19 Source SARS-CoV-2 (PCR) (Negative) Influenza Type A (PCR) (Negative) Influenza Type B (PCR) (Negative) RSV (PCR) (Negative) Range/Units 08/08/20 08/08/20 08/08/20 11:38 13:00 14:15 WBC (4.4-10.8) 10^3/uL RBC (4.36-5.78) 10^6/uL Hgb (13.5-17.5) g/dL Hct (40.0-50.0) % MCV (80-95) fL MCH (27.0-33.0) pg MCHC (32.0-36.0) % RDW (11.8-14.1) % Plt Count (130-400) 10^3/uL MPV (8.0-11.0) fL Immature Gran % Neutrophils % Lymphocytes % Monocytes % Eosinophils % Basophils % Nucleated RBC % % Absolute Neutrophils (1.2-6.7) 10^3/uL Absolute Lymphocytes (1.2-3.4) 10^3/uL Absolute Monocytes (0.1-0.8) 10^3/uL Absolute Eosinophils (0.0-0.7) 10^3/uL Absolute Basophils (0.0-0.2) 10^3/uL PT (9.3-11.0) sec 11.8 H INR (0.9-1.1) 1.2 H APTT (21.0-27.5) sec 26.8 VBG Lactate (0.6-1.4) mmol/L Sodium (136-145) mmol/L Potassium (3.5-5.1) mmol/L Chloride (98-107) mmol/L Carbon Dioxide (21.0-32.0) mmol/L Anion Gap (3-11) mmol/L BUN (7-18) mg/dL Creatinine (0.70-1.30) mg/dL Estimated GFR/1.73 m2 (mL/min/1.73m2) Glucose (74-106) mg/dL Calcium (8.5-10.1) mg/dL Magnesium (1.8-2.4) mg/dL Total Bilirubin (0.2-1.0) mg/dL AST (15-37) U/L ALT (16-63) U/L Alkaline Phosphatase (46-116) U/L Troponin I (<0.06) ng/mL Total Protein (6.4-8.2) g/dL Albumin (3.4-5.0) g/dL Urine Color (Yellow) Yellow Urine Clarity (Clear) Sl cloudy Urine pH (5-8) 6.5 Ur Specific [place] (1.005-1.025) 1.015 Urine Protein (Negative) mg/dL Negative Urine Ketones (Negative) mg/dL Negative Urine Blood (Negative) Large H Urine Nitrite (Negative) Negative Urine Bilirubin (Negative) Negative Urine Urobilinogen (Up TO 0.2) EU/dL 0.2 Ur Leukocyte Esterase (Negative) Negative Urine RBC (0-2) HPF >50 H Urine WBC (0-5) HPF 0-2 Ur Epithelial Cells (Negative) HPF Negative Urine Crystals (Negative) HPF Negative Urine Bacteria (Negative) HPF Rare Urine Casts (Negative) LPF Negative Urine Mucus (Negative) Negative Ur Culture Indicated? No Urine Glucose (Negative) mg/dL Negative COVID-19 Source Nasopharynx SARS-CoV-2 (PCR) (Negative) Negative Influenza Type A (PCR) (Negative) Negative Influenza Type B (PCR) (Negative) Negative RSV (PCR) (Negative) Negative ECG Data Attestation: I personally reviewed and interpreted this ECG (s) as follows: Interpretation: rate of 86, sinus, no acute ST elevation or depression, [place] 140. QRS 104. QTc 440. HPI General Mode of arrival: ambulatory . Date/Time Provider Initiated Documentation: 08/08/20 11:08 . Limitations to Documentation: no limitations . Information obtained by: patient . HPI Narrative: Patient is a 74-year-old male with a history of recent periprosthetic hip fracture, C3 fracture status post fall earlier this month and recently diagnosed with UTI for which he was given Macrobid who left AMA from the rehab on Wednesday presents for fever per home health today. Home health noted that his temp was 102.9. He states he has been drinking 3 beers daily. He states he has not been taking his Macrobid. He states he does ambulate with a walker and that he last walked yesterday. He states his last meal was last night. He states he gets Meals on Wheels but is able to get himself snacks and administer his own medications. He denies any recent falls since the fall earlier this month. He states he has chronic shortness of breath and lower extremity edema and states this is not significantly worse than usual. He denies headache, dizziness, chest pain, abdominal pain, vomiting, diarrhea. He states he was instructed by [facility] to wear his collar only when upright and that he was advised to wear for another 4 weeks. Related Data Home Medications Medication Instructions Recorded Confirmed Metamucil 1 - 2 tbs PO DAILY 02/25/18 07/17/20 acetaminophen [Tylenol] 650 mg PO Q4H PRN PRN #0 tab 06/18/20 07/17/20 budesonide-formoterol [Symbicort] 2 puff INHALATION BID #10.2 g 06/18/20 08/08/20 cyanocobalamin (vitamin B-12) 1,000 mcg PO DAILY #0 tab 06/18/20 08/08/20 [Vitamin B-12] docusate sodium [Colace] 100 mg PO TID #0 cap 06/18/20 08/08/20 pantoprazole 40 mg PO DAILY@0730 #30 tab 06/18/20 08/08/20 polyethylene glycol 3350 17 g PO DAILY PRN PRN #0 ea 06/18/20 07/17/20 thiamine mononitrate (vit B1) 100 mg PO DAILY #0 tab 06/18/20 07/17/20 [Vitamin B-1 (mononitrate)] trazodone 50 mg tablet 50 mg PO QHS PRN #20 tab 07/08/20 07/17/20 cholecalciferol (vitamin D3) 1,000 unit PO DAILY #30 tab 07/23/20 nicotine 14 mg TRANSDERMAL DAILY #14 ea 07/23/20 polyethylene glycol 3350 17 g PO DAILY #30 ea 07/23/20 spironolactone 100 mg PO DAILY #0 tab 07/23/20 08/08/20 tramadol 50 mg PO Q6H PRN PRN #10 tab 07/23/20 lisinopril 20 mg tablet 20 mg PO DAILY 08/06/20 08/08/20 carvedilol 6.25 mg PO BID 08/08/20 08/08/20 furosemide [Lasix] 40 mg PO DAILY 08/08/20 08/08/20 nitrofurantoin 100 mg PO DAILY 08/08/20 08/08/20 Previous Rx's Medication Instructions Recorded acetaminophen [Tylenol] 650 mg PO Q4H PRN PRN #0 tab 06/18/20 budesonide-formoterol [Symbicort] 2 puff INHALATION BID #10.2 g 06/18/20 cyanocobalamin (vitamin B-12) 1,000 mcg PO DAILY #0 tab 06/18/20 [Vitamin B-12] docusate sodium [Colace] 100 mg PO TID #0 cap 06/18/20 pantoprazole 40 mg PO DAILY@0730 #30 tab 06/18/20 polyethylene glycol 3350 17 g PO DAILY PRN PRN #0 ea 06/18/20 thiamine mononitrate (vit B1) 100 mg PO DAILY #0 tab 06/18/20 [Vitamin B-1 (mononitrate)] trazodone 50 mg tablet 50 mg PO QHS PRN #20 tab 07/08/20 cholecalciferol (vitamin D3) 1,000 unit PO DAILY #30 tab 07/23/20 nicotine 14 mg TRANSDERMAL DAILY #14 ea 07/23/20 polyethylene glycol 3350 17 g PO DAILY #30 ea 07/23/20 spironolactone 100 mg PO DAILY #0 tab 07/23/20 tramadol 50 mg PO Q6H PRN PRN #10 tab 07/23/20 Allergies Allergy/AdvReac Type Severity Reaction Status Date / Time erythromycin base AdvReac Mild Verified 07/17/20 13:13 [From E-Mycin] General JAMEE: 2 Review of Systems All systems reviewed & are unremarkable except as noted in HPI and below Constitutional Constitutional: Reports as per HPI, Denies chills and Denies fever(s) Eyes Eyes: Denies blurry vision ENT Ears, Nose, Mouth, and Throat: Denies dizziness, Denies sore throat and Denies throat swelling Cardiovascular Cardiovascular: Denies chest pain and Denies dyspnea Respiratory Respiratory: Denies cough and Denies dyspnea Gastrointestinal Gastrointestinal: Denies abdominal pain, Denies diarrhea and Denies vomiting Genitourinary Genitourinary: Denies hematuria and Denies dysuria Musculoskeletal Musculoskeletal: Denies back pain and Denies numbness Integumentary/Breasts Skin/Breast: Denies lesions and Denies rash Neurologic Neurologic: Denies dizziness, Denies localized weakness and Denies numbness Allergic/Immunologic Allergic/Immunologic: Denies throat swelling [facility] Medical History 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 Hale Derm Alcohol use disorder Smalls's esophagus 10/17/2018 [place] [place] esophageal mucosal changes classified as Smalls's stage C0-M1 per Wheatcroft criteria (also showed resolution of esophageal varices on carvedilol 6.25 mg BID) Basal cell carcinoma (BCC) Face Bilateral lower extremity edema (01/14/18) Related to cirrhosis BPH w urinary obs/LUTS (03/10/13) Al hemangioma (02/18/17) Dr. Hale Derm Chronic obstructive lung disease (03/15/13) 01/2007 PFTs: FEV1 90%; 06/2019 PFTs: FEV1/FVC 56% --> severe obstructive airways disease with no bronchodilator response Dysphagia 10/17/2018 [place] [place] Smalls's & interval resolution of esophageal varices seen on previous EGD (see Smalls's dx comments for details); 06/06/2019 Barium Swallow: some dysmotility & aspiration --> referred to Speech Therapy 04/12/20 [facility] [place] Manometry; 05/17/2020 EGD: Grade I esophageal varices, duodenal erosions w/o bleeding, no obstructive cause for dysphagia Esophageal varices 06/22/2017 EGD (Dr. Hoang): grade 1 w/ stigmata of bleeding; 10/17/2018 [place] [place] no evidence of esophageal or gastric varices on carvedilol 6.25 mg BID Family history of malignant melanoma ov note dated 05/10/20-Dr. Hale Gastroesophageal reflux disease (03/15/13) HH surgery 08/1990 GERD (gastroesophageal reflux disease) Hepatic cirrhosis (01/14/18) [facility] 02/24/2018 Fibroscan: stage 4 liver fibrosis, consistent with cirrhosis with possible portal HTN 06/22/2018 EGD (Dr. 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 Hale Derm Sigmoid diverticulosis (02/01/18) 02/01/2018 colonoscopy Squamous cell carcinoma Face Tobacco use disorder 1.5 PPD Surgical History Colonoscopy - MAC (02/01/18) [place]17[place] [facility] [place] no need for further to have any further colonscopy per report H/O endoscopy 05/17/20 [facility] [place] History of esophagogastroduodenoscopy (EGD) (06/22/18) dr hoang, grade I esophageal varices Left shoulder (09/24/07) Marci Fundoplication (03/24/85) Prostatectomy (~05/2007) Repair of incision from Marci fundoplication (03/24/87) right shoulder (03/24/00) Family History Mother , resp failure No problems noted. Father , prostate CA Personal history of malignant neoplasm prostate Malignant melanoma Social History Smoking/Tobacco Use Status: Current every day Tobacco Type: cigarettes Smoking risk assessment performed?: Yes Alcohol Intake: current Alcohol Intake frequency: 3 or more drinks per day Alcohol type: beer and hard liquor Drug use: Never Substance use type: does not use Caregiver/Support person: No Number of Children: 2 Communication Needs: None current occupation: Retired Current gender identity: male What type of physical activity do you participate in: none Seatbelt use: always Water heater temp set <120 deg: Yes Working smoke detector in home: Yes Fire extinguisher in home: Yes Carbon monox detector in home: Yes Firearms in home: No Do you feel safe at home: Yes Do you feel safe in your relationship?: Yes Exam Const General: cooperative and ill appearing chronically Orientation: alert, awake and oriented x3 HENMT Head: normal to inspection Ears: hearing grossly normal bilaterally and external ears normal General nose exam: external nose normal Face and sinus: normal facial exam Mouth: mucous membranes dry Eyes General: appearance normal, both eyes and all related structures Eyelids: eyelids normal Pupils: PERRL EOM: EOM intact bilaterally Neck Neck: normal visual inspection and other (Cervical collar present) Lymphatic: no lymphadenopathy noted Chest Chest: normal inspection of the chest Resp Effort & Inspection: normal respiratory effort and able to speak in complete sentences Auscultation: diminished lung sounds bilaterally in the lower lung saunders Cardio Rate: regular rate Rhythm: regular rhythm GI Inspection: normal to inspection Palpation: soft, not firm, no guarding, no hepatosplenomegaly, no masses and nontender Auscultation: normal bowel sounds Abdomen image: 1. 3 x 3 cm reducible hernia. Male General Exam: Yes normal external exam Penis: normal penis Scrotum: scrotum normal Back/Spine/Pelvis Cervical Spine: No cervical spinal tenderness Thoracic/Lumbar Spine: No thoracic spinal tenderness and No lumbar spinal tenderness Skin General skin exam: no rashes or lesions noted Neuro General: patient alert, patient awake, moves all extremities, no meningeal signs and no focal motor deficits Cognition: normal cognition Speech: speech normal Gait: normal gait Motor: muscle tone normal throughout Sensory Exam: no sensory deficits noted Extrem General: edema Laterality: bilateral (2+ pitting) Psych Appearance: grossly normal Mental Status: mental status grossly normal Speech and Movement: speech and movement normal Affect: normal affect Thought Process: normal
--- NOTE | 2020-08-08 11:15 | RT.EKG_ITS ---
APPROVED REPORT Exam: Resting ECG Patient Location: E HR:86 bpm ECG Measurements Heart Rate 86 AXIS AL 140 P 29 QRSd 104 QRS 61 QT 367 T 46 QTc 440 Conclusion Sinus rhythm...normal P axis, V-rate 60- 99 Atrial premature complex...SV complex w/ short R-R interval I have reviewed and interpreted ECG and agree with software generated interpretation.
[2020-08-08 11:45] LABS: Lactate 1.2 mmol/L (0.6-1.4)
[2020-08-08 11:47] LABS: Abs Immature Grans 0.12 10^3/uL (0.0-0.06); Absolute Eosinophil Count 0.12 10^3/uL (0.0-0.7); Absolute Lymphocyte Count 0.84 10^3/uL (1.2-3.4); Absolute Monocyte Count 1.44 10^3/uL (0.1-0.8); Basophils % 0.3; Eosinophils % 0.8; HCT 32.8 % (40.0-50.0); HGB 10.4 g/dL (13.5-17.5); Immature Grans % 0.8; Lymphocytes % 5.5; MCH 29.4 pg (27.0-33.0); MCHC 31.7 % (32.0-36.0); MCV 92.7 fL (80-95); Monocytes % 9.4; Neutrophils % 83.2; Nucleated RBC 0 %; Platelet Count 444 10^3/uL (130-400); RBC 3.54 10^6/uL (4.36-5.78); RDW 14.4 % (11.8-14.1); RDW-SD 49.1 fL; WBC 15.36 10^3/uL (4.4-10.8)
[2020-08-08 11:49] LABS: Absolute Basophil Count 0.05 10^3/uL (0.0-0.2); Absolute Neutrophil Count 12.78 10^3/uL (1.2-6.7)
[2020-08-08 12:00] LABS: INR 1.2 (0.9-1.1); PTT Activated 26.8 sec (21.0-27.5); Prothrombin Time 11.8 sec (9.3-11.0)
[2020-08-08 12:08] LABS: ALT 38 U/L (16-63); AST 37 U/L (15-37); Albumin 2.7 g/dL (3.4-5.0); Alkaline Phosphatase 202 U/L (46-116); Anion Gap 7.6 mmol/L (3-11); BUN 12 mg/dL (7-18); Bilirubin, Total 0.4 mg/dL (0.2-1.0); CO2 25.4 mmol/L (21.0-32.0); CREATININE 0.76 mg/dL (0.70-1.30); Calcium 8.6 mg/dL (8.5-10.1); Chloride 95 mmol/L (98-107); Glucose 102 mg/dL (74-106); Magnesium 2.1 mg/dL (1.8-2.4); Potassium 4.1 mmol/L (3.5-5.1); Sodium 128 mmol/L (136-145); Troponin I < 0.05 ng/mL (<0.06)
--- NOTE | 2020-08-08 13:40 | DI.CT_ITS ---
EXAM: CT CHEST PE ABD PELVIS W CLINICAL HISTORY: fever, chronic sob. TECHNIQUE: Imaging Protocol: Axial CT angiography was performed with multi-slice acquisition and mu lti-planar and/or 3D reconstructions. CONTRAST MATERIAL: Intravenous: Omnipaque 350 Contrast volume:100 ml Oral: No COMPARISON: CT CT CHEST/ABD/PEL W from 07/17/2020 FINDINGS: Chest CT: Pulmonary Arteries: The pulmonary arteries are well opacified with IV contrast. No evidence of filli ng defect to suggest pulmonary emboli. There is prominence of the pulmonary arteries, consistent wi th pulmonary artery hypertension. Pulmonary parenchyma: There are again noted to be underlying emphysematous changes greater in the upp er lobes. There is stable upper lobe pulmonary scarring. There is now a dense infiltrate in the rig ht lower lobe, not seen on the previous exam. There is a low-density collection with the with a few air bubbles adjacent to the infiltrate which is suspicious for an abscess. It measures approximately 7 cm in diameter. There was no cavity visible on the previous CT. The findings are consistent with pneumonia and pulmonary abscess. Pleura: There is a small right pleural effusion. Heart: The heart is not dilated. Aorta: Thoracic aorta non-dilated. Mild atherosclerotic changes. Abdomen and pelvic CT: A hiatal hernia is again noted. The liver has a cirrhotic appearance. There is a small amount of as cites. There is no change in the degree of biliary dilatation. There are no visible gallstones or c ommon duct stones. The spleen is normal in size. The pancreas is atrophic. The adrenals and kidney s are unremarkable. There is prominent diverticulosis of the sigmoid but no evidence of diverticulit is. There is no small bowel dilatation or bowel wall thickening. The aorta and iliac arteries are h eavily calcified. There is no evidence of an aneurysm. The patient appears to be status post prosta tectomy. The bladder is somewhat distended but unremarkable. Hardware is again noted in the left pr oximal femur. There is no change in hardware or fracture alignment. Degenerative changes are seen i n the thoracic and lumbar spine. There has been previous abdominal wall hernia repair with mesh in p lace. There is a fatty hernia toward the left of the mesh in the mid abdomen. No bowel is seen kian iating through the defect. IMPRESSION: No evidence of pulmonary embolism. Large right lower lobe infiltrate with proximally 7 centimeter area focal low-density suspicious for an abscess. Underlying emphysematous changes and scarring greater in the upper lobes. No acute abnormality in the abdomen or pelvis. RADIATION DOSE DELIVERED: 834.7mGy.cm Total DLP DATA REPOSITORY: All CT scans at this facility are submitted to the National Radiology Data Registry (NRDR) Dose Index Registry (DIR) with the [employer] ([employer]). RADIATION OPTIMIZATION: All CT scans at this facility use at least one of these dose optimization te chniques: automated exposure control; mA and/or kV adjustment per patient size (includes targeted exa ms where dose is matched to clinical indication); or iterative reconstruction.
[2020-08-08] MEDS: Normal Saline - Diluent 50 ML VIAL IV (13:52)
[2020-08-08] MEDS: Omnipaque 350 MG/ML 100 ML BTL IJ (13:53)
[2020-08-08] MEDS: Furosemide 40 MG/4 ML VIAL IVP (14:00)
[2020-08-08 14:02] LABS: Bilirubin Negative (Negative); Blood Large (Negative); Clarity Sl Cloudy (Clear); Glucose Negative (Negative); Ketones Negative (Negative); Leukocyte Esterase Negative (Negative); Nitrite Negative (Negative); Specific Gravity 1.015 (1.005-1.025); Urobilinogen 0.2 EU/dL (Up TO 0.2); pH 6.5 (5-8)
[2020-08-08 14:10] LABS: Bacteria Rare HPF (Negative); C & S Indicated? No; Casts Negative LPF (Negative); Crystals Negative HPF (Negative); Epithelial Cells Negative HPF (Negative); Mucus Negative (Negative); RBC >50 HPF (0-2); WBC 0-2 HPF (0-5)
[2020-08-08] MEDS: PIPERACILLIN/TAZO 3.375 GM in Normal Saline 50 ML IVPB ×2 (14:20→21:07)
[2020-08-08 14:25] LABS: Source Nasopharynx
--- NOTE | 2020-08-08 14:32 | DI.VRAD_ITS ---
Addendum created by Marcelle Javier MD on 08/08/2020 2:33:55 PM EST: THIS REPORT CONTAINS FINDINGS THAT MAY BE CRITICAL TO PATIENT CARE. The findings were verbally communicated via telephone conference with otoniel poe at 2:33 PM EST on 08/08/2020. The findings were acknowledged and understood. Initial report created on 08/08/2020 2:32:22 PM EST: PROCEDURE INFORMATION: Exam: CT Angiography Chest With Contrast Exam date and time: 08/08/2020 12:03 PM Age: 74 years old Clinical indication: Cough and fever and shortness of breath; Patient HX: Fever, chronic SOB, cough TECHNIQUE: Imaging protocol: Computed tomographic angiography of the chest with intravenous contrast. 3D rendering (Not supervised by radiologist): MIP and/or 3D reconstructed images were created by the technologist. Radiation optimization: All CT scans at this facility use at least one of these dose optimization techniques: automated exposure control; mA and/or kV adjustment per patient size (includes targeted exams where dose is matched to clinical indication); or iterative reconstruction. Contrast material: OMNI-PAQUE 350; Contrast volume: 100 ml; Contrast route: INTRAVENOUS (IV); COMPARISON: CT CHEST/ABD/PEL W 07/17/2020 2:57 PM FINDINGS: Pulmonary arteries: Normal. No pulmonary emboli. Aorta: Unremarkable. No aortic aneurysm. No aortic dissection. Lungs: Large masslike area of consolidation in the right lower lobe posteriorly measuring approximately 7.5 x 6 x 7 cm in transverse, AP, and craniocaudad dimension. This contains a small central cavitation. Most of the central area of the process is of low-density. This could be a cavitary neoplasm or a pulmonary abscess. Surrounding this process there is a very dense coarse infiltrate with associated interstitial thickening, ground-glass attenuation and areas of consolidation. Small right pleural effusion. Changes of emphysema. Areas of scarring in both lungs, especially in the apices. Pleural space: Small right pleural effusion. Heart: Unremarkable. No cardiomegaly. No pericardial effusion. Lymph nodes: Unremarkable. No enlarged lymph nodes. Bones/joints: Unremarkable. No acute fracture. Soft tissues: Unremarkable. Other findings: Vascular calcifications. IMPRESSION: 1. 7 cm masslike lesion with central cavitation in the right lower lobe. This is either a pulmonary abscess or cavitary malignancy. 2. Dense interstitial infiltrate in the right lower lobe. 3. Small right pleural effusion. 4. Emphysema 5. Esophageal hiatal hernia PROCEDURE INFORMATION: Exam: CT Angiography Abdomen With Contrast Exam date and time: 08/08/2020 12:03 PM Age: 74 years old Clinical indication: Cough and fever and shortness of breath; Patient HX: Fever, chronic SOB, cough TECHNIQUE: Imaging protocol: Computed tomographic angiography images of the abdomen with intravenous contrast material. 3D rendering (Not supervised by radiologist): MIP and/or 3D reconstructed images were created by the technologist. Radiation optimization: All CT scans at this facility use at least one of these dose optimization techniques: automated exposure control; mA and/or kV adjustment per patient size (includes targeted exams where dose is matched to clinical indication); or iterative reconstruction. Contrast material: OMNI-PAQUE 350; Contrast volume: 100 ml; Contrast route: INTRAVENOUS (IV); COMPARISON: CT CHEST/ABD/PEL W 07/17/2020 2:57 PM FINDINGS: Aorta: No aortic aneurysm. No aortic dissection. Celiac trunk and mesenteric arteries: No occlusion or significant stenosis. Renal arteries: No occlusion or significant stenosis. Liver: Cirrhotic liver. Gallbladder and bile ducts: Dilated common bile measuring approximately 1 5 cm. Ultrasound recommended in further evaluation. Mild thickening of the wall the gallbladder. Pancreas: Atrophic pancreatic parenchyma. Spleen: Normal. No splenomegaly. Adrenals: Normal. No mass. Kidneys and ureters: Normal. No hydronephrosis. Stomach and bowel: Moderate to large esophageal hiatal hernia. Bulky diverticulosis of the sigmoid colon evidence of acute diverticulitis. Several of the diverticuli contain calcified fecaliths. Lymph nodes: Unremarkable. No enlarged lymph nodes. Intraperitoneal space: Small amount of free fluid in the pelvis. Bones/joints: The bones are demineralized and there is degenerative arthritis in the spine and pelvis. Internal fixation left trochanteric hip fracture. The fracture line remains visible. Soft tissues: Postoperative changes ventral abdominal wall hernia repair with a midline mesh. There is of ventral hernia to the right of the mesh. The opening of the hernia measures approximately 2.4 cm in transverse dimension and 2.3 cm in craniocaudad dimension. Large amount of mesenteric fat herniated through the defect. Smaller fat containing hernias are seen inferior to the larger hernia with openings measuring approximately 1 cm by 1 cm in craniocaudad and transverse dimension Other findings: Diffuse atheromatous calcifications. No aneurysm identified. IMPRESSION: 1. Dilated common bile duct measuring 1.5 cm with mild gallbladder wall thickening. Ultrasound recommended. 2. Fat containing left ventral abdominal wall hernias status post previous ventral hernia repair. 3. Bulky diverticulosis without evidence of diverticulitis. 4. Cirrhotic liver. 5. Small amount of free fluid in the pelvis. 6. Internal fixation left trochanteric hip fracture 7. Esophageal hiatal hernia Dictated and Authenticated by: Marcelle Javier MD. Ordering:BJ Pool MD
[2020-08-08] MEDS: VANCOMYCIN/WATER (PEG) 1.5 GM/300 ML BAG IV (15:00)
[2020-08-08 15:12] LABS: COVID-19 PCR Negative (Negative); Influenza A PCR Negative (Negative); Influenza B PCR Negative (Negative); RSV PCR Negative (Negative)
--- NOTE | 2020-08-08 15:57 | NUR.NOTE ---
PT CHANGED, BEDDING CLEANED. PT VOIDING VIA URINAL IN PLACE. IV ANTIBIOTICS INFUSING. :
--- NOTE | 2020-08-08 17:34 | W.PM.HP.N ---
Date of service: 08/08/20 Time of Service: 17:34 Assessment and Plan Assessment and plan (1) Sepsis: Status: Acute Assessment and plan: Due to aspiration pneumonia with lung abscess. Treat with empiric vanco/zosyn. Await blood cultures. May require bronchoscopy Does not seem to clinically require IVF at this time. (2) Aspiration pneumonia due to regurgitated food: Status: Acute Assessment and plan: As above Will trial clear liquid diet tonight. Obtain speech therapy consult. (3) Lung abscess: Status: Acute Assessment and plan: As above (4) Alcohol abuse: Status: Chronic Assessment and plan: Monitor on CIWA. Obtain EtOH level. (5) Cirrhosis: Status: Chronic Assessment and plan: Low sodium diet. Continue home BB, lasix, spironolactone. (6) DVT prophylaxis: Status: Acute Assessment and plan: SC lovenox (7) Discharge planning issues: Status: Acute Assessment and plan: DNR/DNI History of Present Illness History of Present Illness Chief Complaint: Sent in by home health nurse for a fever Narrative: Mr Cr is a 74 year old male with PMHx of alcohol abuse, cirrhosis, Smalls's esophagus, prior h/o esophageal varices, GERD, severe COPD, not oxygen dependent, who [facility] medical advice on Wednesday (4 days ago) and was sent in to [facility] ED today for a fever of 102.9. His workup revealed a lung abscess with cavitation, which is likely due to aspiration of food which is still evident in the esophagus, based on [facility] pulmonology review of CT images. Vancomycin/zosyn were initiated, and hospitalists were asked to admit the patient for further care. It is possible he will need bronchoscopy if there is delay in improvement, per pulmonology, but not at this time. Of note, the patient is asleep when I came to see him. He does wake up but promptly falls back asleep. I had to wake him up multiple times to try to obtain the history. He needs me to remind him that the home health nurse found him to have a fever and had him go to the ER. He cannot clearly tell me if he has been taking his medications. He does state that the last time he drank alcohol was at 3 am. 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 Geoffrey Dumont Alcohol use disorder Smalls's esophagus 10/17/2018 EGD ([facility]): esophageal mucosal changes classified as Smalls's stage C0-M1 per [place] criteria (also showed resolution of esophageal varices on carvedilol 6.25 mg BID) Basal cell carcinoma (BCC) Face Bilateral lower extremity edema (01/14/18) Related to cirrhosis BPH w urinary obs/LUTS (03/10/13) Al hemangioma (02/18/17) Dr. Geoffrey Dumont Chronic obstructive lung disease (03/15/13) 01/2007 PFTs: FEV1 90%; 06/2019 PFTs: FEV1/FVC 56% --> severe obstructive airways disease with no bronchodilator response Dysphagia 10/17/2018 EGD ([facility]): Smalls's & interval resolution of esophageal varices seen on previous EGD (see Smalls's dx comments for details); 06/06/2019 Barium Swallow: some dysmotility & aspiration --> referred to Speech Therapy 04/12/20 [facility] Esophageal Manometry; 05/17/2020 EGD: Grade I esophageal varices, duodenal erosions w/o bleeding, no obstructive cause for dysphagia Esophageal varices 06/22/2017 EGD (Dr. Cheney): grade 1 w/ stigmata of bleeding; 10/17/2018 EGD ([facility]): no evidence of esophageal or gastric varices on carvedilol 6.25 mg BID Family history of malignant melanoma ov note dated 05/10/20-Dr. Hale Gastroesophageal reflux disease (03/15/13) surgery 08/1990 GERD (gastroesophageal reflux disease) Hepatic cirrhosis (01/14/18) [facility] GI 02/24/2018 Fibroscan: stage 4 liver fibrosis, consistent with cirrhosis with possible portal HTN 06/22/2018 EGD (Dr. 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 Hale Derm Sigmoid diverticulosis (02/01/18) 02/01/2018 colonoscopy Squamous cell carcinoma Face Tobacco use disorder 1.5 PPD Surgical History Colonoscopy - MAC (02/01/18) H/O colonoscopy 05/17/20 at [facility] - no need for further to have any further colonscopy per report H/O endoscopy 05/17/20 [facility] History of esophagogastroduodenoscopy (EGD) (06/22/18) dr cheney, grade I esophageal varices Left shoulder (09/24/07) Marci Fundoplication (03/24/85) Prostatectomy (~05/2007) Repair of incision from Marci fundoplication (03/24/87) right shoulder (03/24/00) Family History Mother , resp failure No problems noted. Father , prostate CA Personal history of malignant neoplasm prostate Malignant melanoma Social History Smoking/Tobacco Use Status: Current every day Tobacco Type: cigarettes Smoking risk assessment performed?: Yes Alcohol Intake: current Alcohol Intake frequency: 3 or more drinks per day Alcohol type: beer and hard liquor Drug use: Never Substance use type: does not use Caregiver/Support person: No Number of Children: 2 Communication Needs: None current occupation: Retired Current gender identity: male What type of physical activity do you participate in: none Seatbelt use: always Water heater temp set <120 deg: Yes Working smoke detector in home: Yes Fire extinguisher in home: Yes Carbon monox detector in home: Yes Firearms in home: No Do you feel safe at home: Yes Do you feel safe in your relationship?: Yes Meds Home Medications and Allergies Home Medications Medication Instructions Recorded Confirmed Type Metamucil 1 - 2 tbs PO DAILY 02/25/18 07/17/20 History acetaminophen [Tylenol] 650 mg PO Q4H PRN PRN #0 tab 06/18/20 07/17/20 Rx budesonide-formoterol [Symbicort] 2 puff INHALATION BID #10.2 g 06/18/20 08/08/20 Rx cyanocobalamin (vitamin B-12) 1,000 mcg PO DAILY #0 tab 06/18/20 08/08/20 Rx [Vitamin B-12] docusate sodium [Colace] 100 mg PO TID #0 cap 06/18/20 08/08/20 Rx pantoprazole 40 mg PO DAILY@0730 #30 tab 06/18/20 08/08/20 Rx polyethylene glycol 3350 17 g PO DAILY PRN PRN #0 ea 06/18/20 07/17/20 Rx thiamine mononitrate (vit B1) 100 mg PO DAILY #0 tab 06/18/20 07/17/20 Rx [Vitamin B-1 (mononitrate)] trazodone 50 mg tablet 50 mg PO QHS PRN #20 tab 07/08/20 07/17/20 Rx cholecalciferol (vitamin D3) 1,000 unit PO DAILY #30 tab 07/23/20 Rx nicotine 14 mg TRANSDERMAL DAILY #14 ea 07/23/20 Rx polyethylene glycol 3350 17 g PO DAILY #30 ea 07/23/20 Rx spironolactone 100 mg PO DAILY #0 tab 07/23/20 08/08/20 Rx tramadol 50 mg PO Q6H PRN PRN #10 tab 07/23/20 Rx lisinopril 20 mg tablet 20 mg PO DAILY 08/06/20 08/08/20 History carvedilol 6.25 mg PO BID 08/08/20 08/08/20 History furosemide [Lasix] 40 mg PO DAILY 08/08/20 08/08/20 History nitrofurantoin 100 mg PO DAILY 08/08/20 08/08/20 History Allergies Allergy/AdvReac Type Severity Reaction Status Date / Time erythromycin base AdvReac Mild Verified 07/17/20 13:13 [From E-Mycin] Exam Narrative Exam Narrative: General: Somnolent, arousable, but somewhat irritable elderly male, not a good history provider today, inattentive Neurological: Forgetful/inattentive, A&Ox3, no focal deficits Psychiatric: irritable Skin: skin on the legs wrinkled; otherwise, clean, dry, intact HEENT:Atraumatic, normocephalic, EOMI, dry MM, clear oropharynx, wearing ASPEN collar - unable to assess for goiter, JVD,or lymphadenopathy Cardiovascular: RRR, no m/r/g Lungs: CTAB/diminished Gastrointestinal: soft, nontender, nondistended, caput medusa Genitourinary: deferred Extremities: +1 BLEs, much better than on his last admission here. Results Labs Result diagrams: 08/08/20 11:38 08/08/20 11:38 Labs: Laboratory Results - last 24 hr 08/08/20 08/08/20 08/08/20 11:38 11:38 11:38 WBC 15.36 H RBC 3.54 L Hgb 10.4 L Hct 32.8 L MCV 92.7 MCH 29.4 MCHC 31.7 L RDW 14.4 H Plt Count 444 H MPV 8.0 Immature Gran % 0.8 Neutrophils % 83.2 Lymphocytes % 5.5 Monocytes % 9.4 Eosinophils % 0.8 Basophils % 0.3 Nucleated RBC % 0 Absolute Neutrophils 12.78 H Absolute Lymphocytes 0.84 L Absolute Monocytes 1.44 H Absolute Eosinophils 0.12 Absolute Basophils 0.05 PT INR APTT VBG Lactate 1.2 Sodium 128 L Potassium 4.1 Chloride 95 L Carbon Dioxide 25.4 Anion Gap 7.6 BUN 12 Creatinine 0.76 Estimated GFR/1.73 m2 >= 60.00 Glucose 102 Calcium 8.6 Magnesium 2.1 Total Bilirubin 0.4 AST 37 ALT 38 Alkaline Phosphatase 202 H Troponin I < 0.05 Total Protein 8.0 Albumin 2.7 L Urine Color Urine Clarity Urine pH Ur Specific [place] Urine Protein Urine Ketones Urine Blood Urine Nitrite Urine Bilirubin Urine Urobilinogen Ur Leukocyte Esterase Urine RBC Urine WBC Ur Epithelial Cells Urine Crystals Urine Bacteria Urine Casts Urine Mucus Ur Culture Indicated? Urine Glucose COVID-19 Source SARS-CoV-2 (PCR) Influenza Type A (PCR) Influenza Type B (PCR) RSV (PCR) 08/08/20 08/08/20 08/08/20 11:38 13:00 14:15 WBC RBC Hgb Hct MCV MCH MCHC RDW Plt Count MPV Immature Gran % Neutrophils % Lymphocytes % Monocytes % Eosinophils % Basophils % Nucleated RBC % Absolute Neutrophils Absolute Lymphocytes Absolute Monocytes Absolute Eosinophils Absolute Basophils PT 11.8 H INR 1.2 H APTT 26.8 VBG Lactate Sodium Potassium Chloride Carbon Dioxide Anion Gap BUN Creatinine Estimated GFR/1.73 m2 Glucose Calcium Magnesium Total Bilirubin AST ALT Alkaline Phosphatase Troponin I Total Protein Albumin Urine Color Yellow Urine Clarity Sl cloudy Urine pH 6.5 Ur Specific [place] 1.015 Urine Protein Negative Urine Ketones Negative Urine Blood Large H Urine Nitrite Negative Urine Bilirubin Negative Urine Urobilinogen 0.2 Ur Leukocyte Esterase Negative Urine RBC >50 H Urine WBC 0-2 Ur Epithelial Cells Negative Urine Crystals Negative Urine Bacteria Rare Urine Casts Negative Urine Mucus Negative Ur Culture Indicated? No Urine Glucose Negative COVID-19 Source Nasopharynx SARS-CoV-2 (PCR) Negative Influenza Type A (PCR) Negative Influenza Type B (PCR) Negative RSV (PCR) Negative Last Vital Signs Temp 36.5 C 08/08/20 15:58 Pulse 79 08/08/20 14:15 Resp 19 08/08/20 14:20 BP 125/67 08/08/20 14:15 Pulse Ox 93 08/08/20 14:20 COVID-19 Screening Have you, or household traveled for leisure in last 14 days?: No Had IN PERSON contact w/suspected or confirmed C-19 person: No
[2020-08-08] MEDS: Enoxaparin 40 MG/0.4 ML SYR SC (18:44)
[2020-08-08 19:27] LABS: ETHANOL BLOOD < 3.0 mg/dL (<3)
[2020-08-08] MEDS: THIAMINE 100 MG in Normal Saline 100 ML 200 MG IVPB (20:10)
[2020-08-08] MEDS: Docusate Sodium 100 MG CAP PO (20:11)
[2020-08-08] MEDS: Carvedilol 6.25 MG TAB PO (20:11)
[2020-08-08] MEDS: Budesonide/Formoterol 160/4.5 6 GM 60 PUFF INH IH (21:26)
[2020-08-09] MEDS: PIPERACILLIN/TAZO 3.375 GM in Normal Saline 50 ML IVPB ×4 (01:47→20:28)
[2020-08-09 03:25] VITALS: BP 117/51; PULSE 82; RESP 17; TEMP 37; O2SAT 92
[2020-08-09 07:18] LABS: Abs Immature Grans 0.09 10^3/uL (0.0-0.06); Absolute Basophil Count 0.07 10^3/uL (0.0-0.2); Absolute Eosinophil Count 0.14 10^3/uL (0.0-0.7); Absolute Lymphocyte Count 1.01 10^3/uL (1.2-3.4); Basophils % 0.5; HCT 30.2 % (40.0-50.0); HGB 9.9 g/dL (13.5-17.5); Immature Grans % 0.6; MCHC 32.8 % (32.0-36.0); MCV 91.5 fL (80-95); MPV 8.6 fL (8.0-11.0); Monocytes % 10.6; Neutrophils % 80.3; Nucleated RBC 0 %; Platelet Count 427 10^3/uL (130-400); RDW 14.6 % (11.8-14.1); RDW-SD 49.5 fL; WBC 14.38 10^3/uL (4.4-10.8)
[2020-08-09 07:22] LABS: Absolute Monocyte Count 1.52 10^3/uL (0.1-0.8); Absolute Neutrophil Count 11.55 10^3/uL (1.2-6.7)
[2020-08-09 07:30] LABS: Anion Gap 7.3 mmol/L (3-11); BUN 10 mg/dL (7-18); CO2 25.7 mmol/L (21.0-32.0); CREATININE 0.72 mg/dL (0.70-1.30); Calcium 8.6 mg/dL (8.5-10.1); Chloride 98 mmol/L (98-107); Glucose 86 mg/dL (74-106); Magnesium 1.9 mg/dL (1.8-2.4); Potassium 3.8 mmol/L (3.5-5.1); Sodium 131 mmol/L (136-145)
[2020-08-09] MEDS: Budesonide/Formoterol 160/4.5 6 GM 60 PUFF INH IH ×2 (07:46→20:26)
[2020-08-09 07:58] LABS: Procalcitonin 0.2 ng/mL
[2020-08-09 08:07] VITALS: BP 114/59; PULSE 76; RESP 18; TEMP 37.4; O2SAT 91
[2020-08-09] MEDS: Carvedilol 6.25 MG TAB PO ×2 (08:17→20:27)
[2020-08-09] MEDS: Thiamine 100 MG TAB PO (08:17)
[2020-08-09] MEDS: Spironolactone 50 MG TAB 100 MG PO (08:17)
[2020-08-09] MEDS: Docusate Sodium 100 MG CAP PO ×3 (08:17→20:27)
[2020-08-09] MEDS: Cholecalciferol (Vitamin D3) 1,000 UNIT TAB 1000 UNITS PO (08:17)
[2020-08-09] MEDS: Multivitamin TAB 1 TAB PO (08:18)
[2020-08-09] MEDS: Furosemide 20 MG TAB 40 MG PO (08:18)
[2020-08-09] MEDS: Pantoprazole 40 MG TABCR PO (08:18)
[2020-08-09] MEDS: Folic Acid 1 MG TAB PO (08:18)
[2020-08-09] MEDS: Cyanocobalamin 500 MCG TAB 1000 MCG PO (08:18)
[2020-08-09] MEDS: Psyllium PKT 1 EACH PO (08:18)
[2020-08-09] MEDS: Normal Saline Flush 10 ML SYR IVP ×2 (08:24→20:30)
--- NOTE | 2020-08-09 09:48 | INITIAL_ITS ---
- If Service Date Differs Date of service: 08/09/20 Time of Service: 09:48 Care Management Initial Assess REASON FOR HOSPITALIZATION:: Sepsis PAST MEDICAL HISTORY/PAST SURGICAL HISTORY:: Medical History . 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 dx 11/2006 RALP 05/22 f/u Dr Palencia. [place] (actinic keratosis) (02/18/17). Dr. Geoffrey Dumont. Alcohol use disorder. Smalls's esophagus. 10/17/2018 EGD ([facility]): e sophageal mucosal changes classified as Smalls's stage C0-M1 per [place] criteria (also showed resolution of esophageal varices on carvedilol 6.25 mg BID). Basal cell carcinoma (BCC). Face. Bilateral lower extremity edema (01/14/18). Related to cirrhosis. BPH w urinary obs/LUTS (03/10/13). Al hemangioma (02/18/17). Dr. Geoffrey Dumont. Chronic obstructive lung disease (03/15/13). 01/2007 PFTs: FEV1 90%; 06/2019 PFTs: FEV1/FVC 56% --> severe obstructive airways disease with no bronchodilator response. Dysphagia. 10/17/2018 EGD ([facility]): Smalls's & interval resolution of esophageal varices seen on previous EGD (see Smalls's dx comments for details); 06/06/2019 Barium Swallow: some dysmotility & aspiration --> referred to Speech Therapy. 04/12/20 [facility] Esophageal Manometry; 05/17/2020 EGD: Grade I esophageal varices, duodenal erosions w/o bleeding, no obstructive cause for dysphagia. Esophageal varices. 06/22/2017 EGD (Dr. Cheney): grade 1 w/ stigmata of bleeding; 10/17/2018 EGD ([facility]): no evidence of esophageal or gastric varices on carvedilol 6.25 mg BID. Family history of malignant melanoma. ov note dated 05/10/20-Dr. Hale. Gastroesophageal reflux disease (03/15/13). surgery 08/1990. GERD (gastroesophageal reflux disease). Hepatic cirrhosis (01/14/18). [facility] GI. 02/24/2018 Fibroscan: stage 4 liver fibrosis, consistent with cirrhosis with possible portal HTN. 06/22/2018 EGD (Dr. Cheney): confirmed portal HTN with grade 1 esophageal varices. Sodium restriction 2000 mg for ascites control. History of basal cell carcinoma. 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 S/p repair L; then occurred on R side and now chronic. Hyperlipidemia (03/24/13). 11/2018 labs: good response to high potency statin, continue. Hyperlipidemia. Hypertension (08/01/14). Incisional hernia, without obstruction or gangrene (01/17/18). [facility] GI consult. Incontinence of feces. Malignant neoplasm of prostate. Rectosphincteric dyssynergia. Manifested as fecal incontinence and constipation; resolved with daily fiber supplementation. Restless leg syndrome. Rotator cuff syndrome (03/24/13). S/p B/L repair. Seborrheic keratosis (02/18/17). Dr. Hale Derm. Sigmoid diverticulosis (02/01/18). 02/01/2018 colonoscopy. Squamous cell carcinoma. Face. Tobacco use disorder. 1.5 PPD. Surgical History . Colonoscopy - MAC (02/01/18). H/O colonoscopy. 05/17/20 at [facility] - no need for further to have any further colonscopy per report. H/O endoscopy. 05/17/20 [facility]. History of esophagogastroduodenoscopy (EGD) (06/22/18). dr cheney, grade I esophageal varices. Left shoulder (09/24/07). Marci Fundoplication (03/24/85). Prostatectomy (~05/2007). Repair of incision from Marci fundoplication (03/24/87). right shoulder (03/24/00) PREVIOUS FUNCTIONAL STATUS/SOCIAL/FAMILY SUPPORTS:: Severino lives alone in a single family home in [facility]. 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 He is and has two adult children - a son in [place] and a daughter in [place] and three grandchildren. Severino has several friends in the community and a nephew who lives in [place], [place]. that he identifies as his supports. Severino has been receiving home health services for nursing and PT which will need to be resumed at discharge. Severino is fairly independent in the community and continues to drive. CURRENT FUNCTIONAL STATUS:: Severino was sitting up in bed when CM met with him. He was agreeable to conversation and evidenced a good sense of humor durng the exchange. Severino talked a bit about his recent illnesses and injuries and the fact that he recently signed out of [facility] AMA. When questioned why, he stated that he was always cold there. He keeps the temperature at 82 degrees at home and his room could only get to 76 degrees at rehab. He explained that he has an appointment at 9:[address] Amaya on Wednesday and he is concerned about missing it. CM will contact the office on Wednesday if Haim is still hosptalized. ADVANCE DIRECTIVES:: None on file currently. Had completed document a few months ago but revoked it. Has patient been provided with info about the portal/API?: Yes Did the patient sign up for the portal?: No CODE STATUS:: DNR/DNI INSURANCE COVERAGE / FINANCIAL ISSUES:: Medicare. BC BS CURRENT HOME/COMMUNITY SERVICES/EQUIPMENT:: [facility] RN and PT PRIMARY CARE PHYSICIAN:: Stephie Jones POTENTIAL DISCHARGE NEEDS:: follow up with PCP and discharge plan of care PATIENT/FAMILY EDUCATION NEEDS:: Discharge plan, limitations, follow up plan, Ask Me Three TRANSPORTATION:: via private vehicle with friends PLAN:: Severino will likely return home with a resumption of home health services. He wll follow up with his community providers and transport with friends or family. CM will continue to support Severino and his discharge planning needs. CM will co ntact Dr. Amaya's office on Wednesday mor if Severino is still hospitalized. Readmission - Within the Past 30 Days Yes or No: Y - Date of First Admission Date of 1st Admission: 07/17/20 - Date of this Admission Date of Admission: 08/08/20 This admission was: Through ED - Office Visit Since 1st Admission Have you seen your PCP in the office since discharge?: No Describe barriers for scheduling or getting an appointment: Severino was in a SNF - I. Interview patient and/or Family Difficulty reaching your doctor or getting an office appt?: No Have you had trouble purchasing/ or taking medication?: No Have you had trouble with getting meals at home?: No Did you feel ready for discharge when you left the last time: Yes (left AMA from SNF) Were services received that you thought were set up on disch: Yes What services were received?: [facility] RN and PT Did you call your physician beore you came to the ED?: No - If the patient had a VNA ordered Did the patient have a VNA order?: Yes Did you call the VNA before you came?: No (they were at house) Did the VNA tell you to come to the hospital?: Yes Do you know if the VNA called your physician?: No - If the patient had home care service Call them to discuss the patient's admission: Unavailable - 3 day holiday weekend. - ED visits How many ED visits in the past 12 months: 3 - Assessment for Readmission Summary of readmission circumstances, based upon interviews: Severino has a constellation of chronic medical problem including COPD and alcohol abuse with cirrhosis and esophageal varices. he lives alone and smokes and drinks to excess. This admission was for pneumonia with possible lung abscess.
[2020-08-09 12:00] VITALS: BP 103/62; PULSE 73; RESP 16; TEMP 36.7; O2SAT 92
--- NOTE | 2020-08-09 13:34 | PHA.REVIEW ---
Pharmacy Admission Review - Admission Clinical Review (Last Reviewed 07/09/20 @ 09:47 by Jaleesa Morales NP) Discharge planning issues (Acute) DVT prophylaxis (Acute) Lung abscess (Acute) Aspiration pneumonia due to regurgitated food (Acute) Sepsis (Acute) Fever (Acute) Abscess of lower lobe of right lung with pneumonia (Acute) erythromycin base [From E-Mycin] Adverse Reaction (Mild, Verified 07/17/20 13:13) Height 5 ft 5 in Weight 55.2 kg - Renal Dosing Renal Dosing: BUN 10 mg/dL (7-18) 08/09/20 06:30 Creatinine 0.72 mg/dL (0.70-1.30) 08/09/20 06:30 Medications needing adjustments: Reviewed (eCrCl 63 ml/min) - Anticoagulation Anticoagulation: Hgb 9.9 g/dL (13.5-17.5) L 08/09/20 06:30 Hct 30.2 % (40.0-50.0) L 08/09/20 06:30 Plt Count 427 10^3/uL (130-400) H 08/09/20 06:30 INR 1.2 (0.9-1.1) H 08/08/20 11:38 Creatinine 0.72 mg/dL (0.70-1.30) 08/09/20 06:30 DVT Prohphylaxis: Reviewed Medications: Enoxaparin - Opiate Usage Evaluate Pain Scale/Pains Meds: N/A Scheduled Bowel Reg ordered if on Opiates?: No - Relevant Labs Sodium 131 mmol/L (136-145) L 08/09/20 06:30 Potassium 3.8 mmol/L (3.5-5.1) 08/09/20 06:30 Chloride 98 mmol/L (98-107) 08/09/20 06:30 Magnesium 1.9 mg/dL (1.8-2.4) 08/09/20 06:30 C-Reactive Protein 6.50 mg/dL (0.0-0.3) H 08/09/20 06:30 Electrolytes, C-Reactive P, ESR: Reviewed (hyponatremic at baseline (cirrhosis)) - DM Control DM Control: Glucose 86 mg/dL (74-106) 08/09/20 06:30 Insulin Dosing: N/A - Heart Failure/VA Heart Failure/VA: Troponin I < 0.05 ng/mL (<0.06) 08/08/20 11:38 EF%, ANUJ's, B-Blockers, Diuretics: Reviewed - BP Control BP Control: Blood Pressure 103/62 Blood Pressure 114/59 Blood Pressure 117/51 If elevated: Reviewed - Qtc Review If Elevated: Reviewed (qtc 440 on admission) - IV to PO Switch IV Medications: Reviewed - Home Meds Home Med List reviewed: Reviewed Relevent Home Meds Not ordered & why?: lisinopril; med list from home health rec'd by nursing -- some meds were left unconfirmed because they were not on this list - Current meds Current Medication Order Review: Reviewed - Comments Comments/Follow Ups: Zosyn and Vancomycin ordered for aspiration pneumonia
--- NOTE | 2020-08-09 16:20 | W.PM.PROGNOT ---
Date of Service Date of service: 08/09/20 Time of Service: 16:20 Assessment and Plan Assessment and plan (1) Sepsis: Status: Acute Assessment and plan: Due to aspiration pneumonia with lung abscess. Improved. Await sputum c&s. Blood cx negative. Continue empiric vanco/zosyn. Await sputum cultures. May require bronchoscopy (2) Aspiration pneumonia due to regurgitated food: Status: Acute Assessment and plan: As above Advance diet to soft/bite sized. Obtain speech therapy consult. (3) Lung abscess: Status: Acute Assessment and plan: As above (4) Alcohol abuse: Status: Chronic Assessment and plan: Monitor on CIWA. So far not actively withdrawing. Continue vitamins. . (5) Cirrhosis: Status: Chronic Assessment and plan: Low sodium diet. Continue home BB, lasix, spironolactone. (6) DVT prophylaxis: Status: Acute Assessment and plan: SC lovenox (7) Discharge planning issues: Status: Acute Assessment and plan: DNR/DNI Subjective Subjective Interval history since last seen: Mr Cr states that he is short of breath. He cannot tell me if he is feeling any better than yesterday. He denies dizziness, chest pain, is reporting cough productive of juan pablo-colored sputum. He denies n/v. He is really pleased with the way his legs are looking. Exam Narrative Exam Narrative: General: Elderly male, mildly dyspneic, much more alert than when I saw him yesterday, A&Ox3, conversant HEENT: EOMI, MMM Cardiovascular: RRR, no m/r/g Lungs: coarse breath sounds B Gastrointestinal: soft, nontender, minimal ascites noted Extremities: trace edema BLEs, better than yesterday Objective Last Vital Signs Temp 36.7 C 08/09/20 12:00 Pulse 73 08/09/20 12:00 Resp 16 08/09/20 12:00 BP 103/62 08/09/20 12:00 Pulse Ox 92 08/09/20 12:00 Laboratory Results - last 24 hr 08/08/20 08/09/20 08/09/20 11:38 06:30 06:30 WBC RBC Hgb Hct MCV MCH MCHC RDW Plt Count MPV Immature Gran % Neutrophils % Lymphocytes % Monocytes % Eosinophils % Basophils % Nucleated RBC % Absolute Neutrophils Absolute Lymphocytes Absolute Monocytes Absolute Eosinophils Absolute Basophils Sodium 131 L Potassium 3.8 Chloride 98 Carbon Dioxide 25.7 Anion Gap 7.3 BUN 10 Creatinine 0.72 Estimated GFR/1.73 m2 >= 60.00 Glucose 86 Calcium 8.6 Magnesium 1.9 C-Reactive Protein 6.50 H Procalcitonin 0.2 Ethyl Alcohol < 3.0 08/09/20 06:30 WBC 14.38 H RBC 3.30 L Hgb 9.9 L Hct 30.2 L MCV 91.5 MCH 30.0 MCHC 32.8 RDW 14.6 H Plt Count 427 H MPV 8.6 Immature Gran % 0.6 Neutrophils % 80.3 Lymphocytes % 7.0 Monocytes % 10.6 Eosinophils % 1.0 Basophils % 0.5 Nucleated RBC % 0 Absolute Neutrophils 11.55 H Absolute Lymphocytes 1.01 L Absolute Monocytes 1.52 H Absolute Eosinophils 0.14 Absolute Basophils 0.07 Sodium Potassium Chloride Carbon Dioxide Anion Gap BUN Creatinine Estimated GFR/1.73 m2 Glucose Calcium Magnesium C-Reactive Protein Procalcitonin Ethyl Alcohol
[2020-08-09 16:39] VITALS: BP 122/64; PULSE 74; RESP 19; TEMP 37; O2SAT 91
[2020-08-09] MEDS: Enoxaparin 40 MG/0.4 ML SYR SC (17:16)
[2020-08-09 19:43] VITALS: BP 117/66; PULSE 82; RESP 18; TEMP 36.4; O2SAT 93
[2020-08-09 19:44] LABS: Vancomycin, Trough 18.1 ug/mL (10.0-20.0)
[2020-08-09 23:33] VITALS: BP 127/62; PULSE 70; RESP 18; TEMP 36.7; O2SAT 94
[2020-08-10] MEDS: PIPERACILLIN/TAZO 3.375 GM in Normal Saline 50 ML IVPB ×4 (01:26→19:52)
[2020-08-10 03:20] VITALS: BP 115/64; PULSE 66; RESP 18; TEMP 37.2; O2SAT 94
[2020-08-10] MEDS: guaiFENesin 200 MG/10 ML CUP 100 MG PO (03:54)
[2020-08-10] MEDS: Acetaminophen 325 MG TAB 650 MG PO (03:55)
[2020-08-10 06:35] LABS: Abs Immature Grans 0.09 10^3/uL (0.0-0.06); Absolute Basophil Count 0.04 10^3/uL (0.0-0.2); Absolute Eosinophil Count 0.32 10^3/uL (0.0-0.7); Absolute Lymphocyte Count 1.01 10^3/uL (1.2-3.4); Absolute Monocyte Count 1.14 10^3/uL (0.1-0.8); Absolute Neutrophil Count 8.57 10^3/uL (1.2-6.7); Basophils % 0.4; Eosinophils % 2.9; HCT 30.2 % (40.0-50.0); HGB 9.9 g/dL (13.5-17.5); Immature Grans % 0.8; MCH 29.7 pg (27.0-33.0); MCHC 32.8 % (32.0-36.0); MCV 90.7 fL (80-95); MPV 8.1 fL (8.0-11.0); Monocytes % 10.2; Neutrophils % 76.7; Nucleated RBC 0 %; Platelet Count 378 10^3/uL (130-400); RBC 3.33 10^6/uL (4.36-5.78); RDW 14.5 % (11.8-14.1); RDW-SD 47.8 fL; WBC 11.17 10^3/uL (4.4-10.8)
[2020-08-10 06:53] LABS: Anion Gap 5.6 mmol/L (3-11); BUN 7 mg/dL (7-18); C-Reactive Protein 4.46 mg/dL (0.0-0.3); CO2 26.4 mmol/L (21.0-32.0); CREATININE 0.77 mg/dL (0.70-1.30); Calcium 7.9 mg/dL (8.5-10.1); Chloride 95 mmol/L (98-107); Glucose 118 mg/dL (74-106); Magnesium 1.7 mg/dL (1.8-2.4); Potassium 3.6 mmol/L (3.5-5.1); Sodium 127 mmol/L (136-145)
[2020-08-10 07:34] VITALS: BP 116/69; PULSE 62; RESP 17; TEMP 37.1; O2SAT 96
[2020-08-10] MEDS: Budesonide/Formoterol 160/4.5 6 GM 60 PUFF INH IH ×2 (07:48→19:48)
[2020-08-10] MEDS: Multivitamin TAB 1 TAB PO (07:58)
[2020-08-10] MEDS: Psyllium PKT 1 EACH PO (07:58)
[2020-08-10] MEDS: Cholecalciferol (Vitamin D3) 1,000 UNIT TAB 1000 UNITS PO (07:58)
[2020-08-10] MEDS: Spironolactone 50 MG TAB 100 MG PO (07:58)
[2020-08-10] MEDS: Docusate Sodium 100 MG CAP PO ×3 (07:59→19:51)
[2020-08-10] MEDS: Folic Acid 1 MG TAB PO (07:59)
[2020-08-10] MEDS: Thiamine 100 MG TAB PO (07:59)
[2020-08-10] MEDS: Cyanocobalamin 500 MCG TAB 1000 MCG PO (07:59)
[2020-08-10] MEDS: Carvedilol 6.25 MG TAB PO ×2 (07:59→19:51)
[2020-08-10] MEDS: Pantoprazole 40 MG TABCR PO (07:59)
[2020-08-10] MEDS: Furosemide 20 MG TAB PO (07:59)
[2020-08-10] MEDS: Normal Saline Flush 10 ML SYR IVP ×2 (09:07→19:51)
--- NOTE | 2020-08-10 09:48 | W.PM.PROGNOT ---
Date of Service Date of service: 08/10/20 Time of Service: 09:48 Assessment and Plan Assessment and plan (1) Sepsis: Status: Acute Assessment and plan: Due to aspiration pneumonia with lung abscess. Improving Await sputum c&s. Blood cx negative. Continue empiric vanco/zosyn day 2. May require bronchoscopy, plan [place] [facility] (2) Aspiration pneumonia due to regurgitated food: Status: Acute Assessment and plan: As above Advance diet to soft/bite sized. Obtain speech therapy consult. (3) Lung abscess: Status: Acute Assessment and plan: As above (4) Alcohol abuse: Status: Chronic Assessment and plan: Monitor on CIWA. So far not actively withdrawing. Continue vitamins. . (5) Cirrhosis: Status: Chronic Assessment and plan: Low sodium diet. Continue home BB, lasix, spironolactone. (6) DVT prophylaxis: Status: Acute Assessment and plan: SC lovenox (7) Discharge planning issues: Status: Acute Assessment and plan: DNR/DNI case management following for discharge planning. discussed with Dr Martin Subjective Subjective Patient reports: no new complaints and afebrile; denies shortness of breath Exam Narrative Exam Narrative: General: Elderly male, older appearing than stated age, A&Ox3, conversant HEENT: EOMI, MMM Cardiovascular: RRR, good pulses, well perfused Lungs: dim throughout, no coarse breath sounds or wheezing Gastrointestinal: soft, nontender, soft reducible abd hernia, no pain Extremities: trace edema BLE, moves all extremities x4 Objective Last Vital Signs Temp 37.1 C 08/10/20 07:34 Pulse 62 08/10/20 07:34 Resp 17 08/10/20 07:34 BP 116/69 08/10/20 07:34 Pulse Ox 96 08/10/20 07:34 Laboratory Results - last 24 hr 08/09/20 08/10/20 08/10/20 19:23 06:24 06:24 WBC 11.17 H RBC 3.33 L Hgb 9.9 L Hct 30.2 L MCV 90.7 MCH 29.7 MCHC 32.8 RDW 14.5 H Plt Count 378 MPV 8.1 Immature Gran % 0.8 Neutrophils % 76.7 Lymphocytes % 9.0 Monocytes % 10.2 Eosinophils % 2.9 Basophils % 0.4 Nucleated RBC % 0 Absolute Neutrophils 8.57 H Absolute Lymphocytes 1.01 L Absolute Monocytes 1.14 H Absolute Eosinophils 0.32 Absolute Basophils 0.04 Sodium 127 L Potassium 3.6 Chloride 95 L Carbon Dioxide 26.4 Anion Gap 5.6 BUN 7 Creatinine 0.77 Estimated GFR/1.73 m2 >= 60.00 Glucose 118 H Calcium 7.9 L Magnesium 1.7 L C-Reactive Protein 4.46 H Vancomycin Trough 18.1
--- NOTE | 2020-08-10 10:34 | IN_ITS ---
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 Geoffrey Dumont Chronic obstructive lung disease (03/15/13) 01/2007 PFTs: FEV1 90%; 06/2019 PFTs: FEV1/FVC 56% --> severe obstructive airways disease with no bronchodilator response Dysphagia 10/17/2018 EGD ([facility] [place]): Smalls's & interval resolution of esophageal varices seen on previous EGD (see Smalls's dx comments for details); 06/06/2019 Barium Swallow: some dysmotility & aspiration --> referred to Speech Therapy 04/12/20 [facility] [place] Esophageal Manometry; 05/17/2020 EGD: Grade I esophageal varices, duodenal erosions w/o bleeding, no obstructive cause for dysphagia Esophageal varices 06/22/2017 EGD (Dr. Hoang): grade 1 w/ stigmata of bleeding; 10/17/2018 EGD ([facility] [place]): no evidence of esophageal or gastric varices on carvedilol 6.25 mg BID Family history of malignant melanoma ov note dated 05/10/20-Dr. Hale Gastroesophageal reflux disease (03/15/13) surgery 08/1990 GERD (gastroesophageal reflux disease) Hepatic cirrhosis (01/14/18) [facility] GI 02/24/2018 Fibroscan: stage 4 liver fibrosis, consistent with cirrhosis with possible portal HTN 06/22/2018 EGD (Dr. 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 Hale Derm Sigmoid diverticulosis (02/01/18) 02/01/2018 colonoscopy Squamous cell carcinoma Face Tobacco use disorder 1.5 PPD Surgical History Colonoscopy - MAC (02/01/18) H/O colonoscopy 05/17/20 at [facility] [place] - no need for further to have any further colonscopy per report H/O endoscopy 05/17/20 [facility] [place] History of esophagogastroduodenoscopy (EGD) (06/22/18) dr hoang, grade I esophageal varices Left shoulder (09/24/07) Marci Fundoplication (03/24/85) Prostatectomy (~05/2007) Repair of incision from Marci fundoplication (03/24/87) right shoulder (03/24/00) Social History/Home Situation: Lives alone, 3 MARCEL from garage, gets nurse services, Daughter lives in [place], [place], son lives in [facility] Current Functional Limitations: Generally weak with decreased functional activity tolerances. Step to gait on stairs. Equipment Owned/DME: [employer] Subjective: David is lightly sleeping in bed, but easily awakened and agreeable to PT. Cleared to be seen by nursing. He denies pain. Objective: General Observation: Generally weak, poor function of left shoulder. Generally cognitively aware. Pain: No pain ROM: Right Upper Extremity: WNL Left Upper Extremity: impaired left shoulder ROM to approximately 45 degrees flexion and abduction, decreased ROM into ER Right Lower Extremity: WFL Left Lower Extremity: WFL Strength: Right Upper Extremity: WNL Left Upper Extremity: 2/5 left shoulder flexion & abduction,3/5 shoulder ER Right Lower Extremity: WNL Left Lower Extremity: 4+/5 hip flexion, 4+/5 knee flexion Sensation: Intact to pressure and light tough Bed Mobility/Transfers: Supine to sit: HOB elevated 30 degrees, SBA Sit to supine: SBA, hands to control Sit to stand: mod A with FWW Stand to sit: SBA with FWW Toilet transfer: needs bilateral rails due to low toilet Gait: Ambulated with CGA 10 ft to bathroom with FWW and back to bed Balance: Static Sitting: Good Dynamic Sitting: Fair Static Standing: Fair Dynamic Standing: Poor Special Tests: Mobility Limitations Standardized Measure [facility] AM-PAC 6 clicks Basic Mobility Inpatient Short Form: Raw Score: 14 CMS Score: 61.29% Informed Consent/Education: Patient instructed in purpose of PT consult and plan of care. Assessment: Patient is a 74 year old male referred to physical therapy services with the diagnosis of abscess of lower lobe of right lung with pneumonia; alcohol abuse; and aspiration pneumonia due to regurgitated food. He reports cervical fracture a month ago resulting in need to wear hard collar when upright for at least 8 weeks. Bed mobility is good overall with some difficulty getting supine to sit due to core strength. His left shoulder ROM and strength are limited due to RTC impairments. He needs mod assist for sit to stand due to strength and balance. He was able to walk to bathroom and perform toileting tasks seated and standing. He was able to do personal hygiene with left UE support by rail while standing. Patient was set up to sit in chair. He was there about 15 minutes when PT saw he was initiating transfer unsupervised. He was assisted back to bed with bed alarm in place. Patient presents with clinical signs and symptoms consistent with current/admitting diagnoses that have resulted to mobility limitations, gait instability, generalized weakness, and impairment of motor control as demonstrated by the following impairment level findings: 1. Decreased strength to left UE/LE major muscle groups 2. Impaired standing balance 3. Impaired activity tolerance 4. Limitation of joint range of motion in left UE 5. Decreased endurance Impairments are contributing to the following functional limitations: 1. Decreased bed mobility skills 2. Increased dependence with transfers 3. Inability to safely ambulate without assistive device 4. Increase completion time for mobility ADL performance 5. Increased fall risk 6. Inability to negotiate steps alone safely Patient is assessed as a Moderate 06935 complexity based on the following: History: See above Examination: See above Presentation: Evolving Decision Making: Moderate Goals: Goals X1 week 1. Supine-Sit Independent 2. Sit-Supine Independent 3. Sit-Stand Independent 4. Stand-Sit Independent 5. Bed-Chair Supervision 6. Chair-Bed Supervision 7. Gait Supervision 8. Stairs SBA 9. Independent with home exercise program 10. Balance improved to good Plan of Care/Treatment Plan: 1-2x/day, 7 days/week x 1 week. Plan of care has been reviewed with the [employer] providing the service under Physical Therapy direction. Initiate Physical Therapy intervention for strengthening, bed mobility, transfers, gait, stairs, balance training, use of assistive device. DISCHARGE RECOMMENDATIONS: SNF to regain strength and endurance TREATMENT CODE/TIME: 06262, [id number] 9:25-10:10
[2020-08-10] MEDS: guaiFENesin/CODEINE PHOSPHATE 10 ML CUP 5 ML PO (11:36)
[2020-08-10] MEDS: MAGNESIUM SULFATE 1 GM/100 ML BAG IVPB (11:37)
[2020-08-10 11:54] VITALS: BP 116/67; PULSE 66; RESP 17; TEMP 36.9; O2SAT 97
[2020-08-10] MEDS: Normal Saline 500 ML 100 ML IV (14:23)
[2020-08-10] MEDS: Potassium Chloride 20 MEQ TABCR PO ×2 (14:23→19:51)
[2020-08-10] MEDS: Benzonatate 200 MG CAP PO ×2 (14:23→19:51)
[2020-08-10 15:00] VITALS: BP 129/66; PULSE 68; RESP 19; TEMP 36.6; O2SAT 95
--- NOTE | 2020-08-10 16:47 | PDOC.CMPRO ---
- If Service Date Differs Date of service: 08/10/20 Time of Service: 16:47 Care Management Progress Note S/O: Severino was sitting up in bed when CM met with him. He appeared to be in good spirits and commented for the second day in a row, how great his feet look. 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 CM made to call but the belongings were not located. The nurse CLEM spoke to stated that she would check with housekeeping in the morning. CLEM also received a call from Severino's son Selvin in [place]. He expressed concern about Severino's living conditions and wanted to discuss discharge plans. He confirmed that Severino has been drinking to excess much of his life. He has tried to reduce his intake but invariably returns to baseline which is a few beers and some rum on a daily basis. He lives alone and smokes cigarettes, creating an unpleasant atmosphere for visitors. Selvin also expressed concern that Severino has memory loss issues. Most recently Severino has been receiving HH services for RN (2X/wk) PT (2X/wk) and OT once a week. Selvin would like to see those visits increase if possible. Ideally he would like Severino to return to rehab for a while to build up strength and endurance before returning home. Severino does have some resources Selvin shared that could be used to pay for private caregivers to augment HH. CLEM raised the subject of equipment operator intermodal yard Medicaid for Selvin as it is likely his needs will increase with time and age. Selvin requested that CLEM send a copy of the forms both to him and his sister (WALLY) who lives in [place]. A: Severino is a 74 year old man admitted to [facility] on 08/08/20 with aspiration pneumonia and possible lung abscess. P:Severino will likely return home with a resumption of home health services, although short term rehab in a SNF is recommended by PT. When home, he will follow up with his community providers and transport with friends or family. CM will continue to support Severino and his discharge planning needs. CM will contact Dr. Amaya's office on Wednesday if Severino is still hospitalized, to reschedule his appointment.
[2020-08-10] MEDS: Enoxaparin 40 MG/0.4 ML SYR SC (17:12)
[2020-08-10 19:25] VITALS: BP 125/75; PULSE 72; RESP 18; TEMP 36.6; O2SAT 94
[2020-08-10 23:12] VITALS: BP 124/69; PULSE 70; RESP 17; TEMP 36.6; O2SAT 92
--- NOTE | 2020-08-11 | DI.CT_ITS ---
EXAM: CT CHEST W CLINICAL HISTORY: abscess TECHNIQUE: Imaging Protocol: Axial computed tomography images with coronal and sagittal reformatted images were created and reviewed CONTRAST MATERIAL: Intravenous: Omnipaque 350 Contrast volume:structured data in ml. COMPARISON: CT CT CHEST PE ABD PELVIS W from 08/08/2020 FINDINGS: There is a small to moderate size right pleural effusion, mildly increased compared with the previous exam. A small left pleural effusion is now present. There has been apparent interval decrease is i n size of the abscess cavity when compared the previous exam. Surrounding consolidation remains pres ent. There are underlying emphysematous changes. Scarring is again noted at the lung apices. No ne w infiltrates are seen. A hiatal hernia is again noted. There is now ascites seen in the upper abdo men.. IMPRESSION: Decreased size of central abscess cavity in the right lower lobe. Increased amount of surrounding co nsolidation. Mild increase in size of right pleural effusion. New small left pleural effusion and a scites. RADIATION DOSE DELIVERED: 477.66mGy.cm Total DLP DATA REPOSITORY: All CT scans at this facility are submitted to the National Radiology Data Registry (NRDR) Dose Index Registry (DIR) with the [place] [employer] (ACR). RADIATION OPTIMIZATION: All CT scans at this facility use at least one of these dose optimization te chniques: automated exposure control; mA and/or kV adjustment per patient size (includes targeted exa ms where dose is matched to clinical indication); or iterative reconstruction.
[2020-08-11] MEDS: guaiFENesin/CODEINE PHOSPHATE 10 ML CUP 5 ML PO ×2 (00:17→13:31)
[2020-08-11] MEDS: Normal Saline Flush 10 ML SYR IVP (02:10)
[2020-08-11] MEDS: PIPERACILLIN/TAZO 3.375 GM in Normal Saline 50 ML IVPB ×4 (02:13→20:20)
[2020-08-11 03:07] VITALS: BP 131/69; PULSE 69; RESP 16; TEMP 36.6; O2SAT 96
[2020-08-11 06:38] LABS: Abs Immature Grans 0.11 10^3/uL (0.0-0.06); Absolute Basophil Count 0.06 10^3/uL (0.0-0.2); Absolute Monocyte Count 1.26 10^3/uL (0.1-0.8); Basophils % 0.5; Eosinophils % 3.6; HCT 32.3 % (40.0-50.0); HGB 10.5 g/dL (13.5-17.5); Immature Grans % 0.9; MCH 29.7 pg (27.0-33.0); MCHC 32.5 % (32.0-36.0); MCV 91.2 fL (80-95); MPV 8.1 fL (8.0-11.0); Monocytes % 10.2; Neutrophils % 75.8; Nucleated RBC 0 %; Platelet Count 422 10^3/uL (130-400); RBC 3.54 10^6/uL (4.36-5.78); RDW 14.2 % (11.8-14.1); RDW-SD 48.2 fL; WBC 12.38 10^3/uL (4.4-10.8)
[2020-08-11 06:39] LABS: Absolute Eosinophil Count 0.45 10^3/uL (0.0-0.7); Absolute Lymphocyte Count 1.11 10^3/uL (1.2-3.4); Absolute Neutrophil Count 9.38 10^3/uL (1.2-6.7)
[2020-08-11 06:52] LABS: Anion Gap 6.1 mmol/L (3-11); BUN 6 mg/dL (7-18); CO2 26.9 mmol/L (21.0-32.0); CREATININE 0.76 mg/dL (0.70-1.30); Calcium 8.5 mg/dL (8.5-10.1); Chloride 98 mmol/L (98-107); Glucose 104 mg/dL (74-106); Magnesium 2.1 mg/dL (1.8-2.4); Potassium 4.5 mmol/L (3.5-5.1); Sodium 131 mmol/L (136-145)
[2020-08-11] MEDS: Budesonide/Formoterol 160/4.5 6 GM 60 PUFF INH IH ×2 (07:32→20:20)
[2020-08-11 07:48] VITALS: BP 126/62; PULSE 70; RESP 17; TEMP 37.2; O2SAT 98
[2020-08-11] MEDS: Psyllium PKT 1 EACH PO (07:56)
[2020-08-11] MEDS: Cyanocobalamin 500 MCG TAB 1000 MCG PO (07:56)
[2020-08-11] MEDS: Folic Acid 1 MG TAB PO (07:57)
[2020-08-11] MEDS: Multivitamin TAB 1 TAB PO (07:57)
[2020-08-11] MEDS: Carvedilol 6.25 MG TAB PO ×2 (07:57→20:20)
[2020-08-11] MEDS: Benzonatate 200 MG CAP PO ×3 (07:57→20:20)
[2020-08-11] MEDS: Pantoprazole 40 MG TABCR PO (07:57)
[2020-08-11] MEDS: Cholecalciferol (Vitamin D3) 1,000 UNIT TAB 1000 UNITS PO (07:58)
[2020-08-11] MEDS: Thiamine 100 MG TAB PO (07:58)
[2020-08-11] MEDS: Spironolactone 50 MG TAB 100 MG PO (07:58)
[2020-08-11] MEDS: Docusate Sodium 100 MG CAP PO ×3 (07:58→20:20)
[2020-08-11] MEDS: Furosemide 20 MG TAB PO (07:58)
[2020-08-11] MEDS: Potassium Chloride 20 MEQ TABCR PO (07:58)
--- NOTE | 2020-08-11 08:31 | CMPROGNOTE_ITS ---
- If Service Date Differs Date of service: 08/11/20 Time of Service: 08:31 Care Management Progress Note S/O: Severino was sitting up in bed when CM met with him. He appeared to be in good spirits. CM shared with him the fact that his son Dion called CM yesterday and expressed concerns about Severino's declining health and ability to care for himself safely. Severino stated that he appreciates Dion's concern but that he has no desire to return to rehab and that he currently has home health PT, OT and nursing at home. He did say he would be willing to consider private caregivers if he felt he could not manage on his own and that he would be willing to pay for them privately if needed. CLEM also shared that she mailed a LTM application to his daughter Genna (DPOA) as well as to Dion for future consideration. Severino requested that CM assist him with a walk in the hallway and he did very well. He used his walker and moved slowly but steadily, resting once before returning to his room. Yesterday Severino was coughing almost continuously when CM met with him but today he did not cough at all, not even when ambulating. Severino admitted that he is feeling much better. A: Severino is a 74 year old man admitted to [facility] on 08/08/20 with aspiration pneumonia and possible lung abscess. P:Severino will likely return home with a resumption of home health services, although short term rehab in a SNF is recommended by PT. When home, he will follow up with his community providers and transport with friends or family. CM will continue to support Severino and his discharge planning needs. CM will contact Dr. Amaya's office on Wednesday if Severino is still hospitalized, to reschedule his appointment.
--- NOTE | 2020-08-11 09:44 | PTTR_ITS ---
PT Notes Visit Reasons: ASPIRATION PNEUMONIA WITH LUNG ABSCESS 08/11/2020 SUBJECTIVE: Pt stating he has not done much walking in a few days. Agreeable to PT treatment. OBJECTIVE: [id number] As this therapist was getting pt ready for PT he is needed for testing downstairs. Pt does walk into the [facility] and get on stretcher. TRANSFERS Supine to sit: SBA Sit to supine: SBA Sit to stand: Min A Stand to sit: SBA GAIT Device: FWW Weight bearing: Full Assist: CGA Distance: 25' Deviation: cervical collar donned. THEREX: Unable to due testing ASSESSMENT: Tolerates increase in gait well today. I do feel he will be able to advance his gait. Treatment interrupted by needing to go downstairs for testing. Progress gait and strengthening tomorrow. PLAN: Continue per POC. Treatment time: 20' Audrey Sandoval PTA Clinic location: [facility] [place], [place]
[2020-08-11] MEDS: Omnipaque 350 MG/ML 100 ML BTL IJ (10:11)
[2020-08-11] MEDS: Normal Saline - Diluent 50 ML VIAL IV (10:18)
--- NOTE | 2020-08-11 10:41 | DI.VRAD_ITS ---
PROCEDURE INFORMATION: Exam: CT Chest With Contrast; Diagnostic Exam date and time: 08/11/2020 8:42 AM Age: 74 years old Clinical indication: Other: Abscess TECHNIQUE: Imaging protocol: Diagnostic computed tomography of the chest with intravenous contrast. Radiation optimization: All CT scans at this facility use at least one of these dose optimization techniques: automated exposure control; mA and/or kV adjustment per patient size (includes targeted exams where dose is matched to clinical indication); or iterative reconstruction. Contrast material: OMNIPAQUE 350; Contrast volume: 70 ml; Contrast route: INTRAVENOUS (IV); Other contrast: abscess; COMPARISON: CT CHEST/ABD/PEL W 07/17/2020 2:57 PM FINDINGS: Lungs: Right lower lobe lung consolidation with central cystic collection consistent with abscess. Abscess cavity measures 3.7 by 3.2 cm. Consolidation measures 7.5 x 4.9 cm. These findings are similar to the prior study. The central abscess appears smaller. Severe bilateral emphysematous changes. Pleural space: Moderate size right pleural effusion. Small left pleural effusion. Right apical pleural and parenchymal scarring. Heart: Unremarkable. No cardiomegaly. No pericardial effusion. Mediastinal space: Stable moderate size hiatal hernia. Aorta: Unremarkable. No aortic aneurysm. Lymph nodes: Unremarkable. No enlarged lymph nodes. Intraperitoneal space: Small amount of intra-abdominal ascites present. Possible thickening of the gallbladder wall which could be secondary to the ascites. Bones/joints: Unremarkable. No acute fracture. Soft tissues: Midline fat containing abdominal wall hernia. Other findings: Evidence of prior upper abdominal ventral repair. IMPRESSION: 1. Right lower lobe lung consolidation with central abscess. The abscess cavity is smaller than previous. Surrounding airspace disease consistent with pneumonia. 2. Small bilateral pleural effusions. 3. Small amount of intra-abdominal ascites. Dictated and Authenticated by: David Santiago MD. Ordering:PAULA Lazcano MD
[2020-08-11 11:35] LABS: Vancomycin, Trough 23.4 ug/mL (10.0-20.0)
[2020-08-11 12:20] VITALS: BP 106/67; PULSE 71; RESP 17; TEMP 37; O2SAT 98
--- NOTE | 2020-08-11 12:50 | PGE_ITS ---
Date of Service Date of service: 08/11/20 Time of Service: 12:51 Assessment and Plan Assessment and plan (1) Sepsis: Start date: 08/11/20 Start time: 12:55 Status: Acute Assessment and plan: Due to aspiration pneumonia with lung abscess. Improving. Sputum culture with rare growth Blood cx negative. Continue empiric vanco/zosyn day 3. Repeat CT with Lungs: Right lower lobe lung consolidation with central cystic collection consistent with abscess. Abscess cavity measures 3.7 by 3.2 cm. Consolidation measures 7.5 x 4.9 cm. These findings are similar to the prior study. The central abscess appears smaller. Severe bilateral emphysematous changes. Pleural space: Moderate size right pleural effusion. Small left pleural effusion. Right apical pleural and parenchymal scarring. Heart: Unremarkable. No cardiomegaly. No pericardial effusion. Mediastinal space: Stable moderate size hiatal hernia. Aorta: Unremarkable. No aortic aneurysm. Lymph nodes: Unremarkable. No enlarged lymph nodes. Intraperitoneal space: Small amount of intra-abdominal ascites present. Possible thickening of the gallbladder wall which could be secondary to the ascites. Bones/joints: Unremarkable. No acute fracture. Soft tissues: Midline fat containing abdominal wall hernia. Other findings: Evidence of prior upper abdominal ventral repair. IMPRESSION: 1. Right lower lobe lung consolidation with central abscess. The abscess cavity is smaller than previous. Surrounding airspace disease consistent with pneumonia. 2. Small bilateral pleural effusions. 3. Small amount of intra-abdominal ascites. Repeat phone call with [facility] [place] to discuss brochoscopy options. Continues to have elevated leukocytosis. (2) Aspiration pneumonia due to regurgitated food: Start date: 08/11/20 Start time: 13:01 Status: Acute Assessment and plan: As above Advance diet to soft/bite sized. Obtain speech therapy consult. (3) Lung abscess: Start date: 08/11/20 Start time: 13:04 Status: Acute Assessment and plan: As above (4) Alcohol abuse: Start date: 08/11/20 Start time: 13:04 Status: Chronic Assessment and plan: Monitor on CIWA. So far not actively withdrawing. Continue vitamins. . (5) Cirrhosis: Start date: 08/11/20 Start time: 13:04 Status: Chronic Assessment and plan: Low sodium diet. Continue home BB, lasix, spironolactone. (6) DVT prophylaxis: Start date: 08/11/20 Start time: 13:04 Status: Acute Assessment and plan: KRISTINA eldridge (7) Discharge planning issues: Start date: 08/11/20 Start time: 13:04 Status: Acute Assessment and plan: DNR/DNI case management following for discharge planning. discussed with Dr Martin Subjective Subjective Patient reports: no new complaints Interval history since last seen: Sitting up in bed, no distress. CIWA 0 Exam Narrative Exam Narrative: General: Elderly male, older appearing than stated age, A&Ox3, conversant HEENT: EOMI, MMM Cardiovascular: RRR, good pulses, well perfused Lungs: dim throughout, no coarse breath sounds or wheezing Gastrointestinal: soft, nontender, soft reducible abd hernia, no pain Extremities: trace edema BLE, moves all extremities x4 Objective Last Vital Signs Temp 37.2 C 08/11/20 07:48 Pulse 70 08/11/20 07:48 Resp 17 08/11/20 07:48 BP 126/62 08/11/20 07:48 Pulse Ox 98 08/11/20 07:48 Laboratory Results - last 24 hr 08/11/20 08/11/20 08/11/20 06:25 06:25 11:02 WBC 12.38 H RBC 3.54 L Hgb 10.5 L Hct 32.3 L MCV 91.2 MCH 29.7 MCHC 32.5 RDW 14.2 H Plt Count 422 H MPV 8.1 Immature Gran % 0.9 Neutrophils % 75.8 Lymphocytes % 9.0 Monocytes % 10.2 Eosinophils % 3.6 Basophils % 0.5 Nucleated RBC % 0 Absolute Neutrophils 9.38 H Absolute Lymphocytes 1.11 L Absolute Monocytes 1.26 H Absolute Eosinophils 0.45 Absolute Basophils 0.06 Sodium 131 L Potassium 4.5 D Chloride 98 Carbon Dioxide 26.9 Anion Gap 6.1 BUN 6 L Creatinine 0.76 Estimated GFR/1.73 m2 >= 60.00 Glucose 104 Calcium 8.5 Magnesium 2.1 Vancomycin Trough 23.4 H*
[2020-08-11 16:17] VITALS: BP 130/71; PULSE 68; RESP 17; TEMP 35.7; O2SAT 94
[2020-08-11] MEDS: Enoxaparin 40 MG/0.4 ML SYR SC (17:00)
[2020-08-11 19:44] VITALS: BP 142/72; PULSE 82; RESP 18; TEMP 36.3; O2SAT 95
[2020-08-11] MEDS: guaiFENesin 200 MG/10 ML CUP 100 MG PO (20:56)
[2020-08-11 23:22] VITALS: BP 148/82; PULSE 72; RESP 18; TEMP 36.1; O2SAT 95
[2020-08-12] MEDS: PIPERACILLIN/TAZO 3.375 GM in Normal Saline 50 ML IVPB ×4 (02:01→19:34)
[2020-08-12] MEDS: Normal Saline Flush 10 ML SYR IVP ×3 (02:02→19:48)
[2020-08-12 03:28] VITALS: BP 135/72; PULSE 75; RESP 17; TEMP 36.5; O2SAT 95
[2020-08-12 07:13] LABS: Abs Immature Grans 0.12 10^3/uL (0.0-0.06); Absolute Basophil Count 0.07 10^3/uL (0.0-0.2); Absolute Lymphocyte Count 1.41 10^3/uL (1.2-3.4); Absolute Monocyte Count 1.04 10^3/uL (0.1-0.8); Absolute Neutrophil Count 8.89 10^3/uL (1.2-6.7); Basophils % 0.6; Eosinophils % 3.4; HCT 32.7 % (40.0-50.0); HGB 10.6 g/dL (13.5-17.5); Lymphocytes % 11.8; MCH 29.3 pg (27.0-33.0); MCHC 32.4 % (32.0-36.0); MCV 90.3 fL (80-95); MPV 8.1 fL (8.0-11.0); Monocytes % 8.7; Neutrophils % 74.5; Nucleated RBC 0 %; Platelet Count 460 10^3/uL (130-400); RBC 3.62 10^6/uL (4.36-5.78); RDW 14.4 % (11.8-14.1); RDW-SD 47.6 fL; WBC 11.93 10^3/uL (4.4-10.8)
[2020-08-12 07:14] LABS: Absolute Eosinophil Count 0.41 10^3/uL (0.0-0.7)
[2020-08-12 07:20] LABS: Anion Gap 7.9 mmol/L (3-11); BUN 8 mg/dL (7-18); CO2 26.1 mmol/L (21.0-32.0); CREATININE 0.73 mg/dL (0.70-1.30); Calcium 8.6 mg/dL (8.5-10.1); Chloride 97 mmol/L (98-107); Glucose 98 mg/dL (74-106); Potassium 4.2 mmol/L (3.5-5.1); Sodium 131 mmol/L (136-145)
[2020-08-12 07:23] VITALS: BP 148/70; PULSE 74; RESP 17; TEMP 36.7; O2SAT 95
[2020-08-12] MEDS: Budesonide/Formoterol 160/4.5 6 GM 60 PUFF INH IH ×2 (07:36→19:34)
--- NOTE | 2020-08-12 07:40 | CMPROGNOTE_ITS ---
- If Service Date Differs Date of service: 08/12/20 Time of Service: 07:40 Care Management Progress Note S/O: Severino was sitting up in bed when CM met with him. He shared that he had a difficult night because he had a lot of thoughts going through his head. He elaborated a bit and stated that he had been thinking about his children and his drinking and smoking and where he would go from the hospital. He acknowledged that he knows that his drinking and smoking will likely shorten his life but t hat he feels he has the right to make that decision, even if some people consider it a bad decision. He has determined that he will go home with a resumption of services and that if he needs additional help, he will hire caregivers privately. He shared that he has already reached out to several people who have shown interest. Severino continues to improve clinically and will likely be discharged home within the next 48 hours. A: Severino is a 74 year old man admitted to [facility] on 08/08/20 with aspiration pneumonia and possible lung abscess. P:Severino will likely return home with a resumption of home health services. When home, he will follow up with his community providers and transport with friends or family. CM will continue to support Severino and his discharge planning needs.
[2020-08-12] MEDS: Psyllium PKT 1 EACH PO (08:38)
[2020-08-12] MEDS: Thiamine 100 MG TAB PO (08:38)
[2020-08-12] MEDS: Furosemide 20 MG TAB PO (08:38)
[2020-08-12] MEDS: Spironolactone 50 MG TAB 100 MG PO (08:38)
[2020-08-12] MEDS: Docusate Sodium 100 MG CAP PO (08:39)
[2020-08-12] MEDS: Cholecalciferol (Vitamin D3) 1,000 UNIT TAB 1000 UNITS PO (08:39)
[2020-08-12] MEDS: Multivitamin TAB 1 TAB PO (08:39)
[2020-08-12] MEDS: Benzonatate 200 MG CAP PO ×3 (08:39→19:34)
[2020-08-12] MEDS: Cyanocobalamin 500 MCG TAB 1000 MCG PO (08:39)
[2020-08-12] MEDS: Pantoprazole 40 MG TABCR PO (08:39)
[2020-08-12] MEDS: Carvedilol 6.25 MG TAB PO ×2 (08:39→19:34)
[2020-08-12] MEDS: Folic Acid 1 MG TAB PO (08:39)
--- NOTE | 2020-08-12 09:58 | W.PM.PROGNOT ---
Date of Service Date of service: 08/12/20 Time of Service: 09:58 Assessment and Plan Assessment and plan (1) Aspiration pneumonia due to regurgitated food: Start date: 08/12/20 Start time: 10:00 Status: Acute Assessment and plan: Due aspiration pneumonia with lung abscess. Improving symptoms Sputum culture negative Continue a full course of 7 days zosyn day 4 out of 7. [facility] 7 [place] IV with a subsequent course of 6-8 weeks. Will treat for 8 weeks and have patient follow up with pulmonology as an outpatient (2) Lung abscess: Start date: 08/12/20 Start time: 10:05 Status: Acute Assessment and plan: As above (3) Alcohol abuse: Start date: 08/12/20 Start time: 10:05 Status: Chronic Assessment and plan: Monitor on CIWA. So far not actively withdrawing. Continue vitamins. . (4) Cirrhosis: Start date: 08/12/20 Start time: 10:05 Status: Chronic Assessment and plan: Low sodium diet. Continue home BB, lasix, spironolactone. (5) DVT prophylaxis: Start date: 08/12/20 Start time: 10:05 Status: Acute Assessment and plan: SC lovenox (6) Discharge planning issues: Start date: 08/12/20 Start time: 10:05 Status: Acute Assessment and plan: DNR/DNI case management following for discharge planning. discussed with Dr Martin Subjective Subjective Patient reports: no new complaints Interval history since last seen: Sitting up at side of bed eating breakfast no acute distress. Discussed plan with Mr. Cr regarding dispo and augmentin regimen, also spoke about alcohol cessation, which he understands is important, we will set [place] appt with [facility] [place]. He will be discharged on augmentin BID for 8 weeks per [facility] [place]. He denies CP, SOB, N/v/d Exam Narrative Exam Narrative: General: Elderly male, older appearing than stated age, A&Ox3, conversant HEENT: EOMI, MMM Cardiovascular: RRR, good pulses, well perfused Lungs: dim throughout, no coarse breath sounds or wheezing Gastrointestinal: soft, nontender, soft reducible abd hernia, no pain Extremities: trace edema BLE, moves all extremities x4 Objective Last Vital Signs Temp 36.7 C 08/12/20 07:23 Pulse 74 08/12/20 07:23 Resp 17 08/12/20 07:23 BP 148/70 H 08/12/20 07:23 Pulse Ox 95 08/12/20 07:23 Laboratory Results - last 24 hr 08/11/20 08/12/20 08/12/20 11:02 06:35 06:35 WBC 11.93 H RBC 3.62 L Hgb 10.6 L Hct 32.7 L MCV 90.3 MCH 29.3 MCHC 32.4 RDW 14.4 H Plt Count 460 H MPV 8.1 Immature Gran % 1.0 Neutrophils % 74.5 Lymphocytes % 11.8 Monocytes % 8.7 Eosinophils % 3.4 Basophils % 0.6 Nucleated RBC % 0 Absolute Neutrophils 8.89 H Absolute Lymphocytes 1.41 Absolute Monocytes 1.04 H Absolute Eosinophils 0.41 Absolute Basophils 0.07 Sodium 131 L Potassium 4.2 Chloride 97 L Carbon Dioxide 26.1 Anion Gap 7.9 BUN 8 Creatinine 0.73 Estimated GFR/1.73 m2 >= 60.00 Glucose 98 Calcium 8.6 Vancomycin Trough 23.4 H*
[2020-08-12 11:04] VITALS: BP 115/68; PULSE 62; RESP 17; TEMP 36.7; O2SAT 93
--- NOTE | 2020-08-12 11:11 | PTTR_ITS ---
Date of service: 08/12/20 Time of Service: 09:15 PT Notes Visit Reasons: ASPIRATION PNEUMONIA WITH LUNG ABSCESS Inpatient Physical Therapy Treatment Note [facility] Date: 08/13/2020 PRECAUTIONS: Fall SUBJECTIVE: Severino is pleasant and agreeable to participating in PT. OBJECTIVE: Hold further PT in afternoon, due to continuous coughing. Nursing aware. PAIN: No c/o pain BED MOBILITY/TRANSFERS Supine-sit: I Sit-supine: I Sit-stand: I Stand-sit: I GAIT Assistive Device: FWW Weight bearing: Full Assist: S Distance: 150' x2 Deviation: Seated rest x1, slow pacing THEREX: Patient completed NuStep biking x6 minutes on level 7, with close sup ervision. Patient completed several LE strengthening exercises with 2.5# ankle weights in a supine position, as well as horizontal shoulder abduction utilizing red Theraband for resistance. ASSESSMENT: Patient tolerated session well with minimal c/o SOB during gait training and with NuStep biking. PLAN: Continue with global strengthening and balance retraining for improved activity tolerance and mobility. TREATMENT CODE/TIME: Session 1: 50 minutes; 10154 x3 Session 2: 15 minutes; 62406
--- NOTE | 2020-08-12 12:41 | W.NUTRFU ---
Date of service: 08/12/20 Time of Service: 12:41 Nutritional Follow up NOTE: 74 year old male admitted with aspiration PNA and sepsis, possible lung abscess. Following soft bite sized meal plan with excellent intake (>75%). BMI on low end of normal, medical chart indicates mostly weight stable over last year but with frequent weight gains and losses back to baseline. Not at nutritional risk at this time. Will continue to follow. Time Spent in Nutritional Counseling and Treatment: 0
[2020-08-12] MEDS: guaiFENesin 200 MG/10 ML CUP 100 MG PO ×2 (13:56→20:30)
--- NOTE | 2020-08-12 14:36 | CHAPLAIN ---
Severino and I remembered each other from his previous admission. He was discharged from here to [facility], and according to Care Management notes, left there AMA. Severino said he has been in touch with his son in [place] and that his daughter from [place] was here to visit him for three days. Severino looks dissolved. He seemed to enjoy having a visitor and conversation. I will continue to visit.
[2020-08-12 15:23] VITALS: BP 122/72; PULSE 63; RESP 16; TEMP 36.5; O2SAT 95
--- NOTE | 2020-08-12 15:55 | PT.INTREAT ---
Date of service: 08/12/20 PT Notes Visit Reasons: ASPIRATION PNEUMONIA WITH LUNG ABSCESS Inpatient Physical Therapy Treatment Note [facility] Date: 08/12/2020 PRECAUTIONS: Fall. Standard. Cervical collar on when weight-bearing. SUBJECTIVE: Severino agreed to a shorter distance than the one he covered earlier today as he states that he is very tired. Continues to complain about wearing of mask in the hallway even though he understands the reason for it. He is anxious to get the needed help that he thinks he will need at home and he states that Maria C from care management is actively helping him with this. Thinks that he is going home in a couple of days. Happy with this afternoon's session accomplishments. OBJECTIVE: PAIN: No c/o pain BED MOBILITY/TRANSFERS Sit-stand: S Stand-sit: S GAIT Assistive Device: FWW Weight bearing: Full Assist: S Distance: 150 x 2 Deviation: Decreased dawna. Mild SOB after activity which resolved after about 2-3 minutes of seated rest. CHRISTIANO EX: Instructed on corretc performance of sstanding level balance exercises: Bilateral heel raises with slow controlled descent x 20, partial knee bends with slow ascent x 20, alternate hip extension x 10 with report of fatigue after activity. ASSESSMENT: Severino demonstrates increasing activity tolerance, mobility independence, and increasing recovery time from SOB after exertion with graduated activity intensity. PLAN: Continue with exercise/mobility progression to achieve set goals. TREATMENT CODE/TIME:19254 x 25 minutes, 71140 x 15 minutes beginning at 15:55 PM.
--- NOTE | 2020-08-12 16:03 | PDOC.CMPRO ---
- If Service Date Differs Date of service: 08/12/20 Time of Service: 16:03
[2020-08-12] MEDS: Enoxaparin 40 MG/0.4 ML SYR SC (18:12)
[2020-08-12 19:04] VITALS: BP 132/82; PULSE 77; RESP 17; TEMP 36.6; O2SAT 95
[2020-08-12 23:53] VITALS: BP 138/82; PULSE 73; RESP 17; TEMP 36.6; O2SAT 94
[2020-08-13] VITALS (7 sets, daily range): BP systolic 113–144; BP diastolic 63–82; PULSE 69–80; RESP 1–20; TEMP 36.5–37; O2SAT 93–99
--- NOTE | 2020-08-13 | DI.RAD_ITS ---
EXAM: XR CHEST 2V PA LATERAL CLINICAL HISTORY: cough, ? recurrent aspiration TECHNIQUE: 2D digital imaging was performed. COMPARISON: CT CT CHEST W from 08/11/2020 FINDINGS: MEDIASTINUM: Normal. HEART: Normal. PULMONARY VASCULATURE: Normal. LUNGS: Infiltrate right lower lobe appears smaller when compared with the previous CT. Scarring is n oted at both lung apices, right greater than left. No new infiltrates are seen. PLEURAL SPACE: Trace right pleural effusion. No pneumothorax. BONE:Degenerative changes both shoulders, left greater than right. OTHER FINDINGS:Hiatal hernia. IMPRESSION: Right lower lobe pulmonary abscess and surrounding infiltrate appears have decreased in size when com pared with the previous CT. No new abnormalities are seen. DATA REPOSITORY: RADIATION DOSE DELIVERED:
[2020-08-13] MEDS: PIPERACILLIN/TAZO 3.375 GM in Normal Saline 50 ML IVPB ×4 (02:27→19:50)
[2020-08-13] MEDS: Normal Saline 500 ML 100 ML IV (02:28)
[2020-08-13] MEDS: Budesonide/Formoterol 160/4.5 6 GM 60 PUFF INH IH ×2 (07:40→19:49)
[2020-08-13] MEDS: Psyllium PKT 1 EACH PO (08:23)
[2020-08-13] MEDS: Cyanocobalamin 500 MCG TAB 1000 MCG PO (08:23)
[2020-08-13] MEDS: Spironolactone 50 MG TAB 100 MG PO (08:23)
[2020-08-13] MEDS: Benzonatate 200 MG CAP PO ×3 (08:23→19:50)
[2020-08-13] MEDS: Cholecalciferol (Vitamin D3) 1,000 UNIT TAB 1000 UNITS PO (08:23)
[2020-08-13] MEDS: Pantoprazole 40 MG TABCR PO (08:24)
[2020-08-13] MEDS: Thiamine 100 MG TAB PO (08:24)
[2020-08-13] MEDS: Folic Acid 1 MG TAB PO (08:24)
[2020-08-13] MEDS: Carvedilol 6.25 MG TAB PO ×2 (08:24→19:50)
[2020-08-13] MEDS: Furosemide 20 MG TAB PO (08:24)
[2020-08-13] MEDS: Docusate Sodium 100 MG CAP PO ×2 (08:24→13:44)
[2020-08-13] MEDS: Multivitamin TAB 1 TAB PO (08:24)
[2020-08-13] MEDS: guaiFENesin 200 MG/10 ML CUP 100 MG PO ×2 (10:59→16:29)
--- NOTE | 2020-08-13 11:31 | W.PM.PROGNOT ---
Date of Service Date of service: 08/13/20 Time of Service: 11:32 Assessment and Plan Assessment and plan (1) Sepsis: Status: Resolved Assessment and plan: Due to aspiration pneumonia with lung abscess. continues to improve Blood cx negative. Continue empiric zosyn day 5/7. Will need 6-8 weeks of Augmentin to follow. May require bronchoscopy, plan to revisit with [facility] if appropriate (2) Aspiration pneumonia due to regurgitated food: Status: Acute Assessment and plan: As above tolerating soft/bite sized diet with thin liquids speech therapy consult placed for swallow evaluation, nursing checking on status of consult (3) Lung abscess: Status: Acute Assessment and plan: As above (4) Alcohol abuse: Status: Chronic Assessment and plan: Continue vitamins. (5) Cirrhosis: Status: Chronic Assessment and plan: Low sodium diet. Continue home BB, lasix, spironolactone. (6) DVT prophylaxis: Status: Acute Assessment and plan: SC lovenox (7) Discharge planning issues: Status: Acute Assessment and plan: DNR/DNI case management following for discharge planning. discussed with Dr Martin Subjective Subjective Patient reports: no new complaints, tolerating liquids well and tolerating a regular diet Interval history since last seen: ambulating well, using his rigid collar as directed, ambulating with walker. has been medically stable with normal vitals and afebrile. Exam Narrative Exam Narrative: General: Elderly male, older appearing than stated age, A&Ox3, conversant HEENT: EOMI, MMM Cardiovascular: RRR, good pulses, well perfused Lungs: dim throughout, no coarse breath sounds or wheezing Gastrointestinal: soft, nontender, soft reducible abd hernia, no pain Extremities: trace edema BLE, moves all extremities x4 Objective Last Vital Signs Temp 36.5 C 08/13/20 10:54 Pulse 69 08/13/20 10:54 Resp 17 08/13/20 10:54 BP 118/72 08/13/20 10:54 Pulse Ox 95 08/13/20 10:54
[2020-08-13] MEDS: Albuterol/Ipratropium 3 ML UPD VIAL UPD (14:45)
--- NOTE | 2020-08-13 15:48 | PDOC.CMPRO ---
- If Service Date Differs Date of service: 08/13/20 Time of Service: 15:48 Care Management Progress Note S/O: David asked to speak with his CM shortly after morning meeting. He was lying in bed when CM visited with him. He requested an update on his plan, which CM reported that he would likely remain at [facility] to complete his IV abx course, and then he will return home as long as he is medically cleared. He stated that he has received good care at [facility], and he is happy to stay, as long as he is informed of his plan. CM stated that he will probably be able to ring in the New Year at home, at which he replied that he does not intend on drinking. CM discussed alternative ways of celebrating the New Year with him. CM will continue to follow. A: Severino is a 74 year old man admitted to [facility] on 08/08/20 with aspiration pneumonia and possible lung abscess. P:Severino will likely return home with a resumption of home health services. When home, he will follow up with his community providers and transport with friends or family. CM will continue to support Severino and his discharge planning needs.
[2020-08-13] MEDS: Enoxaparin 40 MG/0.4 ML SYR SC (17:46)
--- NOTE | 2020-08-13 18:19 | W.SPEECHEVAL ---
Date of service: 08/13/20 Time of Service: 16:00 Speech Therapy Evaluation Note: Speech-Language/Swallowing Pathology Clinical Dysphagia Evaluation Medical Diagnosis: Aspiration Pneumonia with Lung Abscess. Therapy Diagnosis: Dysphagia, Unspecified. Current Level of Care: Inpatient. Subjective: Pt was sitting in his bedside chair watching tv when EXPLORATION DRILLER arrived. He was pleasant and answered questions, agreeing to a bedside clinical swallow assessment tonight. Pt coughing at baseline and he also had a runny nose when EXPLORATION DRILLER entered the room. 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 Pt with long-standing GERD. Pt has had fairly regular EGDs. A Barium Swallow Study on 06/06/19 showed some dysmotility and aspiration. EGD on 05/17/20 showed Grade 1 esophageal varices, duodenal erosions w/o bleeding, no obstructive cause for dysphagia. Pt also underwent Esophageal Manometry 04/12/20. Pt had Marci Fundoplication surgery in 1984 and then repair in 1986. Additional PMHx includes: Alcohol use disorder, basal cell carcinoma (face), bilateral lower extremity edema related to cirrhosis, chronic obstructive lung disease, hypertension, sigmoid diverticulitis, tobacco use disorder. Current Level of Function & Reason for Referral: Pt has been referred for a clinical swallow evaluation secondary to concern for recurrent aspiration pneumonia, suspected to be from regurgitated food/food still in the esophagus based on CT images upon admission. Pt is described to have coughing fits with phlegm production. He reportedly had difficulty managing water this afternoon, coughing for over an hour after consumption. Dysphagia concerns have increased across the course of his stay. Living Environment/Support: Pt lives at home. Precautions: Reflux/aspiration precautions. Medications: Please see MAR. Pt is currently taking reflux medications during his stay. Allergies: None known. Barriers to Learning: None identified. Respiratory Function: Severe COPD, not oxygen dependent. Supplemental Oxygen: None. Posture/Positioning: Pt is fully upright in his bedside chair during exam today. Nursing states that he is upright when eating meals. Prior Diet: Regular. Current Diet: Soft and bite sized. Thin liquids. ORAL MECHANISM EXAMINATION Dentition: Upper and lower natural. Decay present, but in relatively good condition for age. Oral Hygiene: Adequate, however, several clear bumps noted on back of tongue. Recommend nursing/MD assess. Oral Structures: Oral structures were found to be WFL for swallowing. Lingual, labial, and mandibular strength, range of motion, and coordination were functional. Consistencies Tested: Thin liquids. Puree, pudding, mechanical soft, regular solid textures. Self-Feeding/Level of Assistance: Independent. Oral Phase: Pt took small and controlled sips from an open cup and through straw when asked. Pt took small bites and chewed soft and regular textures adequately before swallowing. Pt ate slowly and carefully. He describes cutting his foods small at home and being cautious not to over-eat, given known hx of esophageal issues. Pt managed all trialed textures without overt oral residue, clearing adequately. Pharyngeal Phase: Hyolaryngeal elevation/excursion present upon palpation. No overt pharyngeal phase deficits observed during PO trials, however, pt with frequent phlegm and was observed to cough and expel mucous throughout the exam between bites, more consistently towards the end of food trials. No observed food residue present in phlegm. Esophageal Phase: Pt with severe esophageal hx, including dxs of Smalls?s Esophagus and GERD as well as hx of Marci Fundoplication surgeries. S/S Aspiration: Pt with runny nose at baseline when EXPLORATION DRILLER arrived in room. EXPLORATION DRILLER requested that pt wipe his nose before exam. No further runny nose observed across PO trials. No coughing during or immediately post swallow (delayed between bites), no observed changes in vocal quality, watery eyes, or throat clearing. Pt denied any sensation of globus throughout. Pt/Caregiver/Staff Education: Nursing and attending MD informed of outcomes of tonight?s clinical bedside swallow assessment evidencing no overt s/s of aspiration associated with immediate swallow/post swallow across both solid and liquids, though EXPLORATION DRILLER with concern for suspected esophageal dysphagia and potential effects of known motility issues and long-standing GERD. Pt did cough between bites, but this was delayed after the swallow and increasing as the PO trials progressed. EXPLORATION DRILLER recommendations for additional review of esophageal work-up hx and further assessment if indicated discussed with attending MD. Use of reflux precautions advised to nursing and discussed with pt in his room this evening. Assessment: Pt is a 74 year-old male with extensive medical hx, including esophageal issues and dxs of Smalls?s Esophagus and GERD with hx of Marci Fundoplication surgeries. Upon bedside examination this evening, no overt s/s of aspiration were noted as related to oral and pharyngeal phases of the swallow, however, EXPLORATION DRILLER questioning substantial contribution of esophageal phase to dysphagia symptoms. A long-standing hx of GERD can lead to regurgitation of food, choking, aspiration, chronic and non-productive cough, globus sensation, excessive throat clearing, excessive mucous production, etc. Pt is at high risk for aspiration after the swallow on material remaining in the esophagus or refluxed material, especially given evidence of past motility issues and mucosal changes to the esophageal lining. Pt also has hx of alcohol and tobacco use disorders, which in excess, can exacerbate reflux. Pt is recommended to follow daily and strict reflux precautions to reduce risks of aspiration/choking, which were reviewed with him today and can be seen summarized below. EXPLORATION DRILLER recommends review of esophageal hx including past evaluation and tx as well as consideration of current reflux amelioration options. PLAN Planned Treatment Interventions: No skilled EXPLORATION DRILLER therapy indicated at this time. Pt is recommended to undergo further esophageal work-up if indicated post review of hx. If esophageal dysphagia is ruled out, pt can be considered for a modified barium swallow study to further investigate the structural and functional integrity of the oral and pharyngeal swallow phases. SWALLOWING RECOMMENDATIONS Solids: Continue with current diet, soft and bite sized. Liquids: Continue with current diet, thin liquids. Medication Administration: Unable to assess today. Recommend trial 1 pill at a time with water, however, can consider administering 1 pill at a time in puree/pudding or crushing if needed. Level of Assistance/Supervision: Frequent check-ins recommended. Nursing is advised to frequently check-in with pt during meals to ensure continued management. Pt may have more difficulty as the meal progress due to suspected esophageal dysphagia. Strategies/Adaptations/AE: Small sips and bites. Cut foods small. Alternate liquids and solids to help with transit. Reflux precautions, including small portions/meals throughout the day/avoid over-eating. Stay upright at least 1 hour after eating and refrain from eating at least 3 hours before bed. Elevate head of bed 6 inches. Limit intake of spicy, acidic, fatty, tomato-based foods, caffeine, carbonated beverages. Reduce alcohol consumption. Continue reflux medications (consider if any medication adjustments are recommended given long-standing hx of GERD). Posture/Positioning Needs: Pt must be out of bed and fully upright for all meals. Pt should remain upright for at least 1 hour after eating and refrain from eating at least 3 hours before bed. Recommended Referrals/Procedures: Pt is recommended for further esophageal work-up. If esophageal dysphagia is ruled-out, he is advised to participate in a modified barium swallow study with an EXPLORATION DRILLER to assess the structural and functional integrity of the oral and pharyngeal swallow mechanism. Charge Code: [id number] Dysphagia Evaluation Time In: 4:00 pm Time Out: 5:15 pm Total Time: 1 hour, 15 minutes
[2020-08-14] MEDS: PIPERACILLIN/TAZO 3.375 GM in Normal Saline 50 ML IVPB ×4 (02:15→19:28)
[2020-08-14] MEDS: Normal Saline Flush 10 ML SYR IVP ×3 (02:16→19:31)
[2020-08-14 07:12] VITALS: BP 126/79; PULSE 64; RESP 17; TEMP 36.3; O2SAT 95
[2020-08-14] MEDS: Pantoprazole 40 MG TABCR PO (07:32)
[2020-08-14] MEDS: Budesonide/Formoterol 160/4.5 6 GM 60 PUFF INH IH ×2 (08:11→19:32)
[2020-08-14] MEDS: Thiamine 100 MG TAB PO (08:33)
[2020-08-14] MEDS: Benzonatate 200 MG CAP PO ×2 (08:33→13:43)
[2020-08-14] MEDS: Carvedilol 6.25 MG TAB PO ×2 (08:33→19:31)
[2020-08-14] MEDS: Docusate Sodium 100 MG CAP PO ×2 (08:33→13:43)
[2020-08-14] MEDS: Spironolactone 50 MG TAB 100 MG PO (08:33)
[2020-08-14] MEDS: Cyanocobalamin 500 MCG TAB 1000 MCG PO (08:34)
[2020-08-14] MEDS: Furosemide 20 MG TAB PO (08:34)
[2020-08-14] MEDS: Folic Acid 1 MG TAB PO (08:34)
[2020-08-14] MEDS: Cholecalciferol (Vitamin D3) 1,000 UNIT TAB 1000 UNITS PO (08:34)
[2020-08-14] MEDS: Multivitamin TAB 1 TAB PO (08:34)
--- NOTE | 2020-08-14 13:47 | PT.INTREAT ---
Date of service: 08/14/20 Time of Service: 13:47 PT Notes Visit Reasons: ASPIRATION PNEUMONIA WITH LUNG ABSCESS Inpatient Physical Therapy Treatment Note [facility] Date: 08/14/2020 PRECAUTIONS: Fall. Standard. Cervical collar on when weight-bearing. SUBJECTIVE: Severino is very upset today about how he knew about his needing to do a swallow testing just late this morning and about it needing to be rescheduled to tomorrow morning due to some logistical issue that he did not want to elaborate on. Agreed to initiating balance activity and to UE and LE exercises using resistance for this session. Continues to worry about the adequacy of help he is going to get at home. OBJECTIVE: PAIN: None reported BED MOBILITY/TRANSFERS Sit-stand: S Stand-sit: S THERA EX: Instructed on correct performance of seated level resistance exercises as written in the treatment/exercise sheet. Only performed limited hip extension to x 5 reps due to fatigue. L UE AROM limited due to preexisting weakness. THERA ACT: Facilitated static standing balance/tolerance with unsupported standing, collar on, and arms on both sides for 25 seconds x 1 rep requiring SBA only of PT. Patient complained of feeling mildly unstable needing to hold onto FWW in front of him after 25 seconds. ASSESSMENT: Severino demonstrates increasing activity tolerance, mobility independence, and increasing recovery time from SOB after exertion with graduated activity intensity. PLAN: Continue with exercise, balance, and mobility progression to achieve set goals. TREATMENT CODE/TIME: 90238 x 20 minutes, 89988 x 13 minutes beginning at 15:55 PM.
--- NOTE | 2020-08-14 14:41 | W.PM.PROGNOT ---
Date of Service Date of service: 08/14/20 Time of Service: 14:41 Assessment and Plan Assessment and plan (1) Sepsis: Status: Resolved Assessment and plan: Due to aspiration pneumonia with lung abscess. continues to improve Blood cx negative. Continue empiric zosyn day 6/7. Will need 6-8 weeks of Augmentin to follow. May require bronchoscopy, [place] [facility] (2) Aspiration pneumonia due to regurgitated food: Status: Acute Assessment and plan: As above tolerating soft/bite sized diet with thin liquids speech therapy consult placed for swallow evaluation, recommendations for barium swallow which are delayed till tomorrow d/t eating breakfast and lunch (3) Lung abscess: Status: Acute Assessment and plan: As above (4) Alcohol abuse: Status: Chronic Assessment and plan: Continue vitamins. (5) Cirrhosis: Status: Chronic Assessment and plan: Low sodium diet. Continue home BB, lasix, spironolactone. (6) DVT prophylaxis: Status: Acute Assessment and plan: SC lovenox (7) Discharge planning issues: Status: Acute Assessment and plan: DNR/DNI case management following for discharge planning, anticipate a discharge to home tomorrow with resumption of home health services. discussed with Dr Martin Subjective Subjective Patient reports: no new complaints, feels better and afebrile; denies shortness of breath Interval history since last seen: no respiratory symptoms or further coughing episodes. Exam Narrative Exam Narrative: General: Elderly male, older appearing than stated age, A&Ox3, conversant HEENT: EOMI, MMM Cardiovascular: RRR, good pulses, well perfused Lungs: dim throughout, no coarse breath sounds or wheezing Gastrointestinal: soft, nontender, soft reducible abd hernia, no pain Extremities: trace edema BLE, moves all extremities x4 Objective Last Vital Signs Temp 36.3 C L 08/14/20 07:12 Pulse 64 08/14/20 07:12 Resp 17 08/14/20 07:12 BP 126/79 08/14/20 07:12 Pulse Ox 95 08/14/20 07:12
--- NOTE | 2020-08-14 14:57 | CHAPLAIN ---
Severino was sitting on the edge of his bed when I visited. He was frustrated because he can't have a drink until after another swallow test, which he said he's had two of already. 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 He also said he doesn't believe he will live a lot longer and he has been thinking about that. His Hearing Aid Repair Technician, and the Hospitalist METHODS TIME ANALYST came while we were talking about this. Severino said he was having difficulty hearing the METHODS TIME ANALYST. His Hearing Aid Repair Technician, Maria C, stayed to explain what the METHODS TIME ANALYST said to Severino. I will continue to visit.
[2020-08-14 15:20] VITALS: RESP 8
[2020-08-14] MEDS: Albuterol/Ipratropium 3 ML UPD VIAL UPD (15:20)
[2020-08-14 15:21] VITALS: RESP 8
[2020-08-14 15:33] VITALS: BP 128/83; PULSE 88; RESP 17; TEMP 37; O2SAT 94
--- NOTE | 2020-08-14 16:47 | PDOC.CMPRO ---
- If Service Date Differs Date of service: 08/14/20 Time of Service: 16:47 Care Management Progress Note S/O: Severino was sitting up on the side of the bed when CM met with him. He was smiling and engaged and agreeable to conversation. Severino shared that he continues to ruminate on his situation. He has been thinking about rehab vs living at home and how well he will be able to manage. He shared that he feels that he will manage with his current supports for now but is not sure about the future. CM confirmed that a referral has been sent to [facility] for [facility] Counsel[facility], but more importantly, for case management. Severino plans to discharge tomorrow after his last dose of IV antibiotic. A: Severino is a 74 year old man admitted to [facility] on 08/08/20 with aspiration pneumonia and possible lung abscess. P:Severino will likely return home with a resumption of home health services. When home, he will follow up with his community providers and transport with friends or family. CM will continue to support Severino and his discharge planning needs.
[2020-08-14] MEDS: Enoxaparin 40 MG/0.4 ML SYR SC (17:30)
[2020-08-14 23:24] VITALS: BP 136/81; PULSE 70; RESP 18; TEMP 36.7; O2SAT 92
--- NOTE | 2020-08-15 | DI.RAD_ITS ---
EXAM: RF UPPER GI SERIES CLINICAL HISTORY: aspiration pneumonitis; hx of Marci's, GERD TECHNIQUE: 2D and realtime digital imaging was performed. CONTRAST MATERIAL: Oral barium Oral water soluble contrast was administered. COMPARISON: CR XR CHEST 2V PA LATERAL from 08/13/2020 FINDINGS: This study was limited by the patient not being able to be cooperative with respect to standing or mo ving on the table. However, we were able to obtain useful information. Stuffer from reveals a large mass in the visualized lower right lung field. This is evident on chest x -ray 2 days ago. There was aspiration of barium evident on this study. This elicited only a weak cough. There was si gnificant vallecular residue. Esophagus: No Zenker's diverticulum. Slightly hypertense upper esophageal sphincter-cricopharyngeus noted. Oth erwise, there was no evidence of obvious fixed lesion in the esophagus nor at the GE junction and no evidence of Schatzki ring. No hiatal hernia. Stomach: Suboptimal study because patient was not able to be administered fizzies for double contrast study because of the visualized aspiration. Nevertheless, there appears to be evidence of possible prior Marci fundoplication. No obvious gross lesion in the stomach, realizing that this is a limite d stomach study. Duodenum: No obvious ulcer crater or diverticulum evident. IMPRESSION: 1. There was significant aspiration demonstrated on this study. This elicited only a weak cough. 2. No fixed lesions seen in the esophagus/GE junction. 3. There appears to be evidence of prior fundoplication surgery. 4. No gross GE reflux demonstrated.
[2020-08-15] MEDS: Normal Saline Flush 10 ML SYR IVP ×2 (01:19→07:43)
[2020-08-15] MEDS: PIPERACILLIN/TAZO 3.375 GM in Normal Saline 50 ML IVPB ×2 (01:45→07:42)
[2020-08-15 06:58] LABS: Platelet Count 452 10^3/uL (130-400)
[2020-08-15] MEDS: Budesonide/Formoterol 160/4.5 6 GM 60 PUFF INH IH (07:54)
[2020-08-15 07:55] VITALS: BP 120/70; PULSE 75; RESP 18; TEMP 36.7; O2SAT 93
[2020-08-15] MEDS: Barium Sulfate 60% W/V 355 ML BTL 300 ML PO (09:57)
--- NOTE | 2020-08-15 10:13 | DSE_ITS ---
Date of service: 08/15/20 Time of Service: 10:14 DS: Diagnosis Discharge Diagnosis (1) Sepsis: Status: Resolved (2) Aspiration pneumonia due to regurgitated food: Status: Acute (3) Lung abscess: Status: Acute (4) Alcohol abuse: Status: Chronic (5) Cirrhosis: Status: Chronic Discharge Plan Disposition Patient Disposition: HOME W/HOME HEALTH SERVICE Condition: Stable Discharge Details Reason For Visit: ASPIRATION PNEUMONIA WITH LUNG ABSCESS Admit Date/Time: 08/08/20 15:57 Admit Provider: Bettye Ramos Attending Provider: Bettye Ramos Primary Care Provider: Stephie Jones [place] [facility] Hospital Course: This is a 74 year old male with history of alcohol abuse, cirrhosis, Smalls's esophagus, prior h/o esophageal varices, GERD, severe COPD, not oxygen d ependent, who left [facility] against medical advice who was sent in to [facility] ED by [facility] for a fever of 102.9. His workup revealed a lung abscess with cavitation, which is likely due to aspiration of food which is still evident in the esophagus. Vancomycin/zosyn were initiated, and he was admitted to med/surg. His case was discussed with [place]ology at [facility] [place] would bronch him if he did not improve. Recs were to complete 7 days of zosyn and then augmentin for a 2 month course. He should follow outpatient with pulmonology at [facility]. He has been oxygenating well on room air and has remained medically stable. He is eating and drinking and bowels and bladder funtioning He had a bedside swallow evaluation and recommendations for barium swallow to rule out esophageal dysphagia, this was completed on aug 15 prior to discharge. If esophageal dysphagia is ruled-out, he is advised to participate in a modified barium swallow study with an FRONT OFFICE ASSOCIATE to assess the structural and functional integrity of the oral and pharyngeal swallow mechanism. This can be done outpatient through his primary care provider. He will be discharged to home with resumption of his home health services. discharge discussed with DR Martin. Home Meds and New Rx's Prescriptions: New guaifenesin 100 mg/5 mL Liquid 100 mg PO Q4H PRN PRNQty: 0 RF: 0 amoxicillin-pot clavulanate 875-125 mg tablet 1 tab PO BID Qty: 120 RF: 0 Continued Metamucil 660 GM powder 1 - 2 tbs PO DAILY RF: 0 spironolactone 50 mg Tablet 100 mg PO DAILY Qty: 0 RF: 0 cholecalciferol (vitamin D3) 25 mcg (1,000 unit) Tablet 1,000 unit PO DAILY Qty: 30 RF: 0 carvedilol 6.25 mg tablet 6.25 mg PO BID RF: 0 budesonide-formoterol [Symbicort] 160-4.5 mcg/actuation Hfa Aerosol Inhaler 2 puff inhalation BID Qty: 10.2 RF: 0 acetaminophen [Tylenol] 325 mg Tablet 650 mg PO Q4H PRN PRNQty: 0 RF: 0 thiamine mononitrate (vit B1) [Vitamin B-1 (mononitrate)] 100 mg Tablet 100 mg PO DAILY Qty: 0 RF: 0 polyethylene glycol 3350 17 gram Powder In Packet 17 g PO DAILY PRN PRN (Reason: Constipation) Qty: 0 RF: 0 pantoprazole 40 mg Tablet,Delayed Release (Dr/Ec) 40 mg PO DAILY@0730 Qty: 30 RF: 0 docusate sodium [Colace] 100 mg Capsule 100 mg PO TID Qty: 0 RF: 0 cyanocobalamin (vitamin B-12) [Vitamin B-12] 500 mcg Tablet 1,000 mcg PO DAILY Qty: 0 RF: 0 Changed furosemide [Lasix] 20 mg tablet 20 mg PO DAILY Qty: 0 RF: 0 Discontinued trazodone 50 mg tablet 50 mg PO QHS PRN (Reason: sleep) Qty: 20 RF: 0 lisinopril 20 mg tablet 20 mg PO DAILY RF: 0 polyethylene glycol 3350 17 gram Powder In Packet 17 g PO DAILY Qty: 30 RF: 0 tramadol 50 mg Tablet 50 mg PO Q6H PRN PRNQty: 10 RF: 0 nicotine 14 mg/24 hr Patch 24 Hour 14 mg transdermal DAILY Qty: 14 RF: 0 nitrofurantoin 100 mg Capsule 100 mg PO DAILY RF: 0 Discharge Instructions Instructions: Aspiration Pneumonia (DC), Lung Abscess (GEN) Additional Instructions: you need to wear your c-collar when up and ambulating. use walker at all times for safety and stability your home health services will resume do not drink alcohol. You must be out of bed and fully upright for all meals. You should remain upright for at least 1 hour after eating and refrain from eating at least 3 hours before bed. Take small sips and bites. Cut foods small. Alternate liquids and solids to help with transit. Reflux precautions, including small portions/meals throughout the day/avoid over-eating. Elevate head of bed 6 inches. Limit intake of spicy, acidic, fatty, tomato-based foods, caffeine, carbonated beverages. Stand Alone Forms: Nursing Discharge Form Referrals: Stephie Jones NP [Primary Care Provider] - 08/22/20 10:30 am Activity:: use walker at all times Equipment/Supplies:: c-collar Diet:: As Tolerated Discharge Orders Discharge Orders: Discharge Order (Routine); Ordered 08/15/20 Ordered By: Spring Lopez Discharge Data Discharge Date/Time-TO BE ENTERED AT DEPARTURE: 08/15/20 13:43 DS: Summary Status at Discharge Functional status at discharge: uses cane/walker Overall status at discharge: patient is progressing back to baseline Mental Status: mental status grossly normal Speech and Movement: speech and movement normal Mood: congruent mood Affect: normal affect Exam Narrative Exam Narrative: General: Elderly male, older appearing than stated age, A&Ox3, conversant, hard of hearing HEENT: EOMI, MMM Cardiovascular: RRR, good pulses, well perfused Lungs: dim throughout, no coarse breath sounds or wheezing Gastrointestinal: soft, nontender, soft reducible abd hernia, no pain Extremities: trace edema BLE, moves all extremities x4 Psych Mental Status: mental status grossly normal Speech and Movement: speech and movement normal Mood: congruent mood Affect: normal affect DS: Data Vitals/I&O Vitals and I&O: Vital Signs Temperature 36.7 C 08/15/20 07:55 Temperature Source Temporal Artery Scan 08/15/20 07:55 Pulse 75 08/15/20 07:55 Pulse Rhythm Irregular 08/14/20 23:35 Pulse 93 H 08/08/20 14:20 Respiratory Rate 18 08/15/20 07:55 Respiratory Effort 08/14/20 23:35 Respiratory Depth Normal 08/14/20 23:35 Respiratory Pattern Normal 08/14/20 23:35 Blood Pressure 120/70 08/15/20 07:55 Blood Pressure Mean 78 08/08/20 14:15 Blood Pressure Position Supine 08/08/20 11:19 Pulse Oximetry 93 08/15/20 07:55 Oxygen Delivery Method Room Air 08/15/20 07:55 Oxygen Flow Rate 0 08/15/20 07:55 Pain Level 0 08/15/20 07:55 Comment 08/12/20 15:47 Intake & Output 08/14/20 08/14/20 08/15/20 11:59 23:59 11:59 Intake Total 580 / 1400 820 / 1400 50 / 50 Output Total 500 / 500 150 / 150 Balance 80 / 900 820 / 900 -100 / -100 Intake: IV 100 / 200 100 / 200 50 / 50 Oral 480 / 1200 720 / 1200 0 / 0 Output: Urine 500 / 500 150 / 150 Other: Urine Color Yellow Yellow Urine Appearance Clear Clear Clear Urine Odor Normal Normal Voiding Methods Toilet Toilet Toilet Data Completed and Pending Labs on day of discharge: Labs from last 24 hours 08/15/20 06:15 Plt Count 452 H PFSH Medical History 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 Geoffrey Dumont Alcohol use disorder Smalls's esophagus 10/17/2018 E[place] esophageal mucosal changes classified as Smalls's stage C0-M1 per [place] criteria (also showed resolution of esophageal varices on carvedilol 6.25 mg BID) Basal cell carcinoma (BCC) Face Bilateral lower extremity edema (01/14/18) Related to cirrhosis BPH w urinary obs/LUTS (03/10/13) Al hemangioma (02/18/17) Dr. Geoffrey Dumont Chronic obstructive lung disease (03/15/13) 01/2007 PFTs: FEV1 90%; 06/2019 PFTs: FEV1/FVC 56% --> severe obstructive airways disease with no bronchodilator response Dysphagia 10/17/2018 EGD ([facility] Smalls's & interval resolution of esophageal varices seen on previous EGD (see Smalls's dx comments for details); 06/06/2019 Barium Swallow: some dysmotility & aspiration --> referred to Speech Therapy 04/12/20 [facility] Esophageal Manometry; 05/17/2020 EGD: Grade I esophageal varices, duodenal erosions w/o bleeding, no obstructive cause for dysphagia Esophageal varices 06/22/2017 EGD (Dr. Hoang): grade 1 w/ stigmata of bleeding; 10/17/2018 EGD ([facility] no evidence of esophageal or gastric varices on carvedilol 6.25 mg BID Family history of malignant melanoma ov note dated 05/10/20-Dr. Hale Gastroesophageal reflux disease (03/15/13) surgery 08/1990 GERD (gastroesophageal reflux disease) Hepatic cirrhosis (01/14/18) [facility] 02/24/2018 Fibroscan: stage 4 liver fibrosis, consistent with cirrhosis with possible portal HTN 06/22/2018 EGD (Dr. Hoang): confirmed portal HTN with grade 1 esophageal varices Sodium restriction 2000 mg for ascites control History of basal cell carcinoma Hydrocele of testis (03/24/13) S/p repair L; then occurred on R side and now chronic Hyperlipidemia (03/24/13) 11/2018 labs: good response to high potency statin, continue Hyperlipidemia Hypertension (08/01/14) Incisional hernia, without obstruction or gangrene (01/17/18) [facility] consult Incontinence of feces Malignant neoplasm of prostate Rectosphincteric dyssynergia Manifested as fecal incontinence and constipation; resolved with daily fiber supplementation Restless leg syndrome Rotator cuff syndrome (03/24/13) S/p B/L repair Seborrheic keratosis (02/18/17) Dr. Hale Derm Sigmoid diverticulosis (02/01/18) 02/01/2018 colonoscopy Squamous cell carcinoma Face Tobacco use disorder 1.5 PPD Surgical History Colonoscopy - MAC (02/01/18) H/O colonoscopy 05/17/20 at [facility] - no need for further to have any further colonscopy per report H/O endoscopy 05/17/20 [facility] History of esophagogastroduodenoscopy (EGD) (06/22/18) dr hoang, grade I esophageal varices Left shoulder (09/24/07) Marci Fundoplication (03/24/85) Prostatectomy (~05/2007) Repair of incision from Marci fundoplication (03/24/87) right shoulder (03/24/00) Family History Mother , resp failure No problems noted. Father , prostate CA Personal history of malignant neoplasm prostate Malignant melanoma Social History Smoking/Tobacco Use Status: Current every day Tobacco Type: cigarettes Smoking risk assessment performed?: Yes Alcohol Intake: current Alcohol Intake frequency: 3 or more drinks per day Alcohol type: beer and hard liquor Drug use: Never Substance use type: does not use Caregiver/Support person: No Number of Children: 2 Communication Needs: None current occupation: Retired Current gender identity: male What type of physical activity do you participate in: none Seatbelt use: always Water heater temp set <120 deg: Yes Working smoke detector in home: Yes Fire extinguisher in home: Yes Carbon monox detector in home: Yes Firearms in home: No Do you feel safe at home: Yes Do you feel safe in your relationship?: Yes
--- NOTE | 2020-08-15 11:49 | PTTR_ITS ---
Date of service: 08/15/20 Time of Service: 11:20 PT Notes Visit Reasons: ASPIRATION PNEUMONIA WITH LUNG ABSCESS Inpatient Physical Therapy Treatment Note [facility] Date: 08/15/2020 PRECAUTIONS: Fall SUBJECTIVE: Severino states that he is feeling tired today because he was awake most of the night. He reports that he heard that he is discharging to home later today. OBJECTIVE: PAIN: No c/o pain BED MOBILITY/TRANSFERS/GAIT: Not assessed today. Patient is independent within room with transfers and ambulation. Patient has been walking with nursing with FWW support. THEREX: Patient was instructed in a resisted LE and UE strengthening program, performed in a seated position, as per flow sheet. He demonstrates global weakness, L LE > R LE, requiring rests between exercises. ASSESSMENT: Patient tolerated session well, however demonstrates significant gl obal weakness. PLAN: Continue with global strengthening via PT upon discharge. TREATMENT CODE/TIME: 20 minutes; [id number]
--- NOTE | 2020-08-15 16:52 | PDOC.CMDIS ---
- If Service Date Differs Date of service: 08/15/20 Time of Service: 16:52 LACE Index Scoring Tool - Questions: Length of Stay (in days): 7 - 13 Acuity (Admit via E.D.?): Yes Comorbidities: Chronic Pulmonary Disease, Any Tumor E.D. Visits: 3 - Answers: Total Score: 16 Risk of Readmission: High Risk Care Management Discharge Reason for Hospitalization: Sepsis Discharge Plan: Severino will be discharged home today with a resumption of HH services for RN,PT and OT. He will follow up with his PCP and plan of care. CM reviewed some basic safety precautions to use at home such as wearing his Life Alert and removing all scatter rugs from the floors and he verbalized understanding. He will transport home via private vehicle with a friend. Patient/Family Education Needs: Discharge plan, safety preacutions for dall prevention, limitations, Ask Me Three
--- NOTE | 2020-08-19 08:49 | PT.INDS ---
Date of service: 08/19/20 PT Notes Visit Reasons: ASPIRATION PNEUMONIA WITH LUNG ABSCESS Physical Therapy Inpatient Discharge Summary Date: 08/19/2020 Date of service: 08/10/2020 through 08/15/2020 PT Orders: PT CONSULT: Limited ability Precautions: Fall risk, standard, WBAT, cervical collar This is a clinical summary of care provided on the duration of dates listed above. No charge was made in the completion of this documentation. Patient Profile/Admitting Diagnosis: Abscess of lower lobe of right lung with pneumonia; Alcohol abuse; Aspiration pneumonia due to regurgitated food PMHX: Medical History 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 Geoffrey Dumont Alcohol use disorder Smalls's esophagus 10/17/2018 EGD ([facility] esophageal mucosal changes classified as Smalls's stage C0-M1 per [place] criteria (also showed resolution of esophageal varices on carvedilol 6.25 mg BID) Basal cell carcinoma (BCC) Face Bilateral lower extremity edema (01/14/18) Related to cirrhosis BPH w urinary obs/LUTS (03/10/13) Al hemangioma (02/18/17) Dr. Geoffrey Dumont Chronic obstructive lung disease (03/15/13) 01/2007 PFTs: FEV1 90%; 06/2019 PFTs: FEV1/FVC 56% --> severe obstructive airways disease with no bronchodilator response Dysphagia 10/17/2018 EGD ([facility]): Smalls's & interval resolution of esophageal varices seen on previous EGD (see Smalls's dx comments for details); 06/06/2019 Barium Swallow: some dysmotility & aspiration --> referred to Speech Therapy 04/12/20 [facility] Esophageal Manometry; 05/17/2020 EGD: Grade I esophageal varices, duodenal erosions w/o bleeding, no obstructive cause for dysphagia Esophageal varices 06/22/2017 EGD (Dr. Cheney): grade 1 w/ stigmata of bleeding; 10/17/2018 EGD ([facility]): no evidence of esophageal or gastric varices on carvedilol 6.25 mg BID Family history of malignant melanoma ov note dated 05/10/20-Dr. Hale Gastroesophageal reflux disease (03/15/13) surgery 08/1990 GERD (gastroesophageal reflux disease) Hepatic cirrhosis (01/14/18) [facility] GI 02/24/2018 Fibroscan: stage 4 liver fibrosis, consistent with cirrhosis with possible portal HTN 06/22/2018 EGD (Dr. 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 Hale Derm Sigmoid diverticulosis (02/01/18) 02/01/2018 colonoscopy Squamous cell carcinoma Face Tobacco use disorder 1.5 PPD Surgical History Colonoscopy - MAC (02/01/18) H/O colonoscopy 05/17/20 at [facility] - no need for further to have any further colonscopy per report H/O endoscopy 05/17/20 [facility] History of esophagogastroduodenoscopy (EGD) (06/22/18) dr cheney, grade I esophageal varices Left shoulder (09/24/07) Marci Fundoplication (03/24/85) Prostatectomy (~05/2007) Repair of incision from Marci fundoplication (03/24/87) right shoulder (03/24/00) Social History/Home Situation: Lives alone, 3 MARCEL from garage, gets nurse services, Daughter lives in [place], [place], son lives in [facility] Current Functional Limitations: Generally weak with decreased functional activity tolerances. Step to gait on stairs. Equipment Owned/DME: FWW Subjective: NT. See most recent BEEF KILLER notes. Objective: General Observation: NT. See most recent BEEF KILLER notes. Pain: NT. See most recent BEEF KILLER notes. ROM: Right Upper Extremity: WNL Left Upper Extremity: impaired left shoulder ROM to approximately 45 degrees flexion and abduction, decreased ROM into ER Right Lower Extremity: WFL Left Lower Extremity: WFL Strength: Right Upper Extremity: WNL Left Upper Extremity: 2/5 left shoulder flexion & abduction,3/5 shoulder ER Right Lower Extremity: WNL Left Lower Extremity: 4+/5 hip flexion, 4+/5 knee flexion Sensation: Intact to pressure and light tough Bed Mobility/Transfers: Supine to sit: Independent Sit to supine: Independent Sit to stand: Independent Stand to sit: Independent Toilet transfer: Independent Gait: 150 feet x 2 using a front wheeled walker with full weightbearing requiring supervision assist. Balance: Static Sitting: Normal Dynamic Sitting:Normal Static Standing: Fair Dynamic Standing: Fair Assessment: David demonstrates meaningful functional mobility improvement during this episode of care. He goes home with PT services to further progress patient's mobility level and facilitate a smooth transition to home. Patient continues to present with clinical signs and symptoms consistent with current/admitting diagnoses that have resulted to mobility limitations, gait instability, generalized weakness, and impairment of motor control as demonstrated by the following impairment level findings: 1. Decreased strength to left UE/LE major muscle groups 2. Impaired standing balance 3. Impaired activity tolerance 4. Limitation of joint range of motion in left UE 5. Decreased endurance Impairments are continuing to contribute to the following functional limitations: 1. Inability to safely ambulate without assistive device 2. Increase completion time for mobility ADL performance 3. Increased fall risk 4. Inability to negotiate steps alone safely Goals: Goals X1 week 1. Supine-Sit Independent MET 2. Sit-Supine Independent MET 3. Sit-Stand Independent MET 4. Stand-Sit Independent MET 5. Bed-Chair Supervision MET 6. Chair-Bed Supervision MET 7. Gait Supervision MET 8. Stairs SBA MET 9. Independent with home exercise program NOT MET 10. Balance improved to good NOT MET DISCHARGE RECOMMENDATIONS: SNF to regain strength and endurance TREATMENT CODE/TIME: NH Thank you for the opportunity to participate in the care of this patient. Brittnee Thornton PT, DPT, CLT [facility] [place], [place]
== END 2020-08-15 13:43 | disposition home health service (06) | DRG 871 ==
LOC: ER 15:56 → MS 16:54
PROVIDERS: Nurse Practitioner Acute Care; Nurse Practitioner Family; Admitting Provider Internal Medicine; Emergency Provider Physician Assistant; PCP Nurse Practitioner Family; Visit Provider Internal Medicine
DX: A41.9 Sepsis, unspecified organism (principal); J69.0 Pneumonitis due to inhalation of food and vomit; J85.1 Abscess of lung with pneumonia; K76.6 Portal hypertension; F10.10 Alcohol abuse, uncomplicated; K74.60 Unspecified cirrhosis of liver; K22.70 Barrett's esophagus without dysplasia; K21.9 Gastro-esophageal reflux disease without esophagitis; J44.9 Chronic obstructive pulmonary disease, unspecified; Z85.46 Personal history of malignant neoplasm of prostate; E78.5 Hyperlipidemia, unspecified; I10 Essential (primary) hypertension; K57.30 Diverticulosis of large intestine without perforation or abscess without bleeding; F17.210 Nicotine dependence, cigarettes, uncomplicated
CPT/HCPCS: 36415; 71275; 74177; 80048; 80053; 84145; 87040; 87637; 92610; 93005; 94640; 96365; 96366; 96367; 96375; 97110; 97162; 97530; 99223; 99232; 99233; 99239; 99285; J1650; 71046; 71260; 74221; 74246; 80202; 80320; 81003; 81015; 83605; 83735; 84484; 85025; 85049; 85610; 85730; 86140; 87070; 87205; 93010; J1940; J2543; J3475; J3490; J7620

== ENCOUNTER 2020-09-12 03:23 | Outpatient (CLI) | payer MEDICARE, BC, SELFPAY ==
[2020-09-12 14:00] LABS: Abs Immature Grans 0.04 10^3/uL (0.0-0.06); Absolute Basophil Count 0.09 10^3/uL (0.0-0.2); Absolute Eosinophil Count 0.27 10^3/uL (0.0-0.7); Absolute Lymphocyte Count 1.69 10^3/uL (1.2-3.4); Absolute Monocyte Count 0.86 10^3/uL (0.1-0.8); Absolute Neutrophil Count 5.68 10^3/uL (1.2-6.7); Eosinophils % 3.1; HCT 35.4 % (40.0-50.0); HGB 11.3 g/dL (13.5-17.5); Immature Grans % 0.5; Lymphocytes % 19.6; MCH 27.6 pg (27.0-33.0); MCHC 31.9 % (32.0-36.0); MCV 86.6 fL (80-95); MPV 8.1 fL (8.0-11.0); Neutrophils % 65.8; Nucleated RBC 0 %; Platelet Count 306 10^3/uL (130-400); RBC 4.09 10^6/uL (4.36-5.78); RDW-SD 47.6 fL; WBC 8.63 10^3/uL (4.4-10.8)
[2020-09-12 14:17] LABS: INR 1.1 (0.9-1.1); Prothrombin Time 10.8 sec (9.3-11.0)
[2020-09-12 14:28] LABS: ALT 28 U/L (16-63); AST 28 U/L (15-37); Albumin 3.4 g/dL (3.4-5.0); Alkaline Phosphatase 128 U/L (46-116); Anion Gap 5.1 mmol/L (3-11); BUN 12 mg/dL (7-18); Bilirubin, Total 0.3 mg/dL (0.2-1.0); CO2 27.9 mmol/L (21.0-32.0); CREATININE 0.7 mg/dL (0.70-1.30); Calcium 8.9 mg/dL (8.5-10.1); Calculated LDL 53 mg/dL (<100); Chloride 97 mmol/L (98-107); Cholesterol 125 mg/dL (<200); Glucose 97 mg/dL (74-106); HDL Cholesterol 62 mg/dL (40-60); Potassium 4.4 mmol/L (3.5-5.1); Sodium 130 mmol/L (136-145); Total Protein 7.4 g/dL (6.4-8.2); Triglyceride 52 mg/dL (<150)
[2020-09-12 21:52] LABS: PSA, Screening <0.1 ng/mL (0.0-6.5)
== END 2020-09-12 03:43 ==
PROVIDERS: PCP Nurse Practitioner Family; Visit Provider Nurse Practitioner Family
DX: E78.5 Hyperlipidemia, unspecified (principal); K70.30 Alcoholic cirrhosis of liver without ascites; Z85.46 Personal history of malignant neoplasm of prostate
CPT/HCPCS: 36415; 80053; 80061; 84153; 85025; 85610

== ENCOUNTER 2020-10-05 05:32 | Emergency (ER) | payer MEDICARE, BC, SELFPAY ==
--- NOTE | 2020-10-05 05:36 | W.ED.GENAD ---
Discharge Plan Disposition Patient Disposition: HOME Condition: Good Discharge Details Clinical Impression: Odynophagia Primary Care Provider: Stephie Jones ED Provider: Trey Hdz Jamison Meds and New Rx's Prescriptions: Continued atorvastatin 40 mg tablet 40 mg PO DAILY Qty: 90 RF: 3 Metamucil 660 GM powder 1 - 2 tbs PO DAILY RF: 0 budesonide-formoterol [Symbicort] 160-4.5 mcg/actuation HFA aerosol inhaler 2 puff inhalation BID Qty: 3 RF: 3 carvedilol 6.25 mg tablet 6.25 mg PO BID Qty: 180 RF: 3 furosemide [Lasix] 20 mg tablet 20 mg PO QAM Qty: 90 RF: 3 pantoprazole 40 mg tablet,delayed release (DR/EC) 40 mg PO QAM Qty: 90 RF: 3 thiamine mononitrate (vit B1) [Vitamin B-1 (mononitrate)] 100 mg tablet 100 mg PO DAILY Qty: 90 RF: 3 spironolactone 50 mg tablet 100 mg PO DAILY Qty: 180 RF: 3 cholecalciferol (vitamin D3) 25 mcg (1,000 unit) Tablet 1,000 unit PO DAILY Qty: 30 RF: 0 acetaminophen [Tylenol] 325 mg Tablet 650 mg PO Q4H PRN PRNQty: 0 RF: 0 cyanocobalamin (vitamin B-12) [Vitamin B-12] 500 mcg Tablet 1,000 mcg PO DAILY Qty: 0 RF: 0 Discharge Instructions Additional Instructions: This is likely irritation from whatever was stuck last night. Should stick with liquid/soft diet this weekend. Follow up with your doctor next week if no improvement. Return to ED with difficulty breathing or inability to swallow liquids. Referrals: Stephie Jones, DEANNA [Primary Care Provider] - Discharge Data Discharge Date/Time-TO BE ENTERED AT DEPARTURE: 10/05/20 06:40 Medical Decision Making At this point back patient has residual foreign body sensation from irritation of having pill stuck overnight. He was able to eat marianne crackers and drink oswaldo princess here without issue. He is in no distress. No emergent indication for endoscopy today. Recommend soft/liquid diet over the weekend. Follow-up with his doctors next week if not better. Return to ED if inability to swallow, difficulty breathing, other concerns. HPI General Mode of arrival: wheelchair. Date/Time Provider Initiated Documentation: 10/05/20 05:36. Limitations to Documentation: no limitations. Information obtained by: patient, RN notes reviewed and old records reviewed. HPI Narrative: Patient presents to the ED with complaint of foreign body sensation in his throat. This is not something new for the patient and he has been to [facility] for evaluation and management. He thinks he got a pill stuck last night. He was still able to drink. Typically by morning the sensation is gone but continues to be present at this time. He is still able to drink and eat. He has no change in voice and no difficulty breathing. He has no chest pain. He decided to come in and be checked. Related Data Home Medications Medication Instructions Recorded Confirmed Metamucil 1 - 2 tbs PO DAILY 02/25/18 10/05/20 acetaminophen [Tylenol] 650 mg PO Q4H PRN PRN #0 tab 06/18/20 10/05/20 cyanocobalamin (vitamin B-12) 1,000 mcg PO DAILY #0 tab 06/18/20 10/05/20 [Vitamin B-12] cholecalciferol (vitamin D3) 1,000 unit PO DAILY #30 tab 07/23/20 10/05/20 atorvastatin 40 mg tablet 40 mg PO DAILY #90 tab-cap 08/22/20 10/05/20 budesonide-formoterol HFA 160 2 puff INHALATION BID #3 unit 08/26/20 10/05/20 mcg-4.5 mcg/actuation aerosol inhaler carvedilol 6.25 mg tablet 6.25 mg PO BID #180 tab 08/26/20 10/05/20 furosemide 20 mg tablet 20 mg PO QAM #90 tab 08/26/20 10/05/20 pantoprazole 40 mg tablet,delayed 40 mg PO QAM #90 tab 08/26/20 10/05/20 release spironolactone 50 mg tablet 100 mg PO DAILY #180 tab 08/26/20 10/05/20 thiamine mononitrate (vit B1) 100 100 mg PO DAILY #90 tab 08/26/20 10/05/20 mg tablet Previous Rx's Medication Instructions Recorded acetaminophen [Tylenol] 650 mg PO Q4H PRN PRN #0 tab 06/18/20 cyanocobalamin (vitamin B-12) 1,000 mcg PO DAILY #0 tab 06/18/20 [Vitamin B-12] cholecalciferol (vitamin D3) 1,000 unit PO DAILY #30 tab 07/23/20 atorvastatin 40 mg tablet 40 mg PO DAILY #90 tab-cap 08/22/20 budesonide-formoterol HFA 160 2 puff INHALATION BID #3 unit 08/26/20 mcg-4.5 mcg/actuation aerosol inhaler carvedilol 6.25 mg tablet 6.25 mg PO BID #180 tab 08/26/20 furosemide 20 mg tablet 20 mg PO QAM #90 tab 08/26/20 pantoprazole 40 mg tablet,delayed 40 mg PO QAM #90 tab 08/26/20 release spironolactone 50 mg tablet 100 mg PO DAILY #180 tab 08/26/20 thiamine mononitrate (vit B1) 100 100 mg PO DAILY #90 tab 08/26/20 mg tablet Allergies Allergy/AdvReac Type Severity Reaction Status Date / Time erythromycin base AdvReac Mild Verified 10/05/20 05:59 [From E-Mycin] General JAMEE: 3 Review of Systems Narrative: As documented in HPI otherwise negative as below. 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 Geoffrey Dumont Chronic obstructive lung disease (03/15/13) 09/06/2020 PFTs ([facility] [place]): moderate-severe (FEV1 50-59%) DNI (do not intubate) DNR (do not resuscitate) no COLST posted on his fridge Dr Oakley's note from Jun 2020 indicates he did COLST as inpt Dysphagia 10/17/2018 EGD ([facility] [place]): Smalls's & interval resolution of esophageal varices seen on previous EGD (see Smalls's dx comments for details); 06/06/2019 Barium Swallow: some dysmotility & aspiration --> referred to Speech Therapy 04/12/20 [facility] [place] Esophageal Manometry; 05/17/2020 EGD: Grade I esophageal varices, duodenal erosions w/o bleeding, no obstructive cause for dysphagia Esophageal varices 06/22/2017 EGD (Dr. Cheney): grade 1 w/ stigmata of bleeding; 10/17/2018 EGD ([facility] [place]): no evidence of esophageal or gastric varices on carvedilol 6.25 mg BID Family history of malignant melanoma ov note dated 05/10/20-Dr. Hale Frailty syndrome in geriatric patient Frequent falls Gastroesophageal reflux disease (03/15/13) HH surgery 08/1990 GERD (gastroesophageal reflux disease) Hepatic cirrhosis (01/14/18) [facility] [place] GI 02/24/2018 Fibroscan: stage 4 liver fibrosis, consistent with cirrhosis with possible portal HTN 06/22/2018 EGD (Dr. 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/24/13) S/p repair L; then occurred on R side and now chronic Hyperlipidemia (03/24/13) 11/2018 labs: good response to high potency statin, continue Hyperlipidemia Hypertension (08/01/14) Incisional hernia, without obstruction or gangrene (01/17/18) [facility] [place] GI consult Incontinence of feces Lives alone Malignant neoplasm of prostate POLST (Physician Orders for Life-Sustaining Treatment) signed with Dr Oakley June 2020 DNR/DNI Rectosphincteric dyssynergia Manifested as fecal incontinence and constipation; resolved with daily fiber supplementation Restless leg syndrome Rotator cuff syndrome (03/24/13) S/p B/L repair Seborrheic keratosis (02/18/17) Dr. Hale Derm Sigmoid diverticulosis (02/01/18) 02/01/2018 colonoscopy Squamous cell carcinoma Face Tobacco use disorder 1.5- 2 PPD not interested in quitting 08/2020 Surgical History Colonoscopy - MAC (02/01/18) H/O colonoscopy 05/17/20 at [facility] [place] - no need for further to have any further colonscopy per report H/O endoscopy 05/17/20 [facility] [place] History of esophagogastroduodenoscopy (EGD) (06/22/18) dr cheney, grade I esophageal varices Left shoulder (09/24/07) Marci Fundoplication (03/24/85) Prostatectomy (~05/2007) Repair of incision from Marci fundoplication (03/24/87) right shoulder (03/24/00) S/P skin biopsy (~09/2020) R inguinal fold on margins of scrotum-Dr Hale Family History Mother , resp failure due to COPD age 69 COPD (chronic obstructive pulmonary disease) Smoker Father , widespread cancer age 73 Personal history of malignant neoplasm prostate Malignant melanoma Smoker Prostate cancer COPD (chronic obstructive pulmonary disease) Son No problems noted. Daughter No problems noted. Brother , age 68 from COPD COPD (chronic obstructive pulmonary disease) Smoker Sister , age 62 from pancreatic cancer Smoker Pancreatic cancer Social History Smoking/Tobacco Use Status: Current every day Tobacco Type: cigarettes Tobacco: How many years used: 60 Quit status: not considering quitting Second Hand Exposure: No Counseling given: counseling >3 minutes Smoking risk assessment performed?: Yes Alcohol Intake: current Alcohol Intake frequency: 3 or more drinks per day Alcohol type: beer and hard liquor Counseling provided: other Drug use: Never Substance use type: does not use Counseling provided: provider counseling Details: very clear that he has no intention of quitting Caregiver/Support person: No Household members: none Housing: house Number of Children: 2 number of grandchildren: 3 Communication Needs: Corrective Lenses Education Level: high school Do you need help understanding health information?: Often 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; 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 Do you think of yourself as: straight/heterosexual Current gender identity: male What is your relationship status?: How often do you talk on the phone with friends or family?: once per week How often do you get together with friends or relatives?: once per week Panel score (0-1 are the most socially isolated patients): 0 What type of physical activity do you participate in: none Special tg needs: No Agree to transfusion: No Seatbelt use: always Water heater temp set <120 deg: Yes Working smoke detector in home: Yes Fire extinguisher in home: Yes Carbon monox detector in home: Yes Firearms in home: No Do you feel safe at home: Yes (though he admits he's falling a lot since summer 2019) Do you feel safe in your relationship?: Yes Additional Social history: Severino lives alone. Neighbors across the street--friend Zeferino and his -- frequently help him. They buy his groceries, plow driveway, etc. He falls several times per week. Either calls neighbors or for lift assist, depending how much he hurts when he falls. His goal is to stay home as long as possible. Exam Narrative Exam Narrative: Const: WDWN elderly male in NAD. HEENT: NC/AT. Normal facial exam. Neck: Supple. Trachea midline. Lungs: Normal respiratory effort. Lungs are clear. Cor: RRR without murmur/gallop. GI: Soft. NT/ND. No guarding or rebound. Neuro: A+O x 3. Normal speech, mentation. Cranial nerves II - XII grossly intact. No gross motor or sensory deficit.
[2020-10-05 05:44] VITALS: BP 132/69; PULSE 78; RESP 20; TEMP 36.3; O2SAT 98
--- NOTE | 2020-10-05 06:05 | NUR.NOTE ---
Nursing Note:Patient swallowing his saliva without any difficulty. Will try marianne crackers and oswaldo princess
--- NOTE | 2020-10-05 06:35 | NUR.NOTE ---
Nursing Note:Patient tolerating marianne crackers without any discomfort or difficulty swallowing. Patient able to carry on a conversation while eating with no issues.
== END 2020-10-05 06:40 | disposition home or self-care (01) ==
LOC: ER 06:32
PROVIDERS: Emergency Provider Emergency Medicine; PCP Nurse Practitioner Family
DX: R13.10 Dysphagia, unspecified (principal)
CPT/HCPCS: 99281

== ENCOUNTER 2020-10-09 01:25 | Outpatient (CLI) | payer MEDICARE, BC, SELFPAY ==
--- NOTE | 2020-10-09 08:34 | DI.RAD_ITS ---
EXAM: XR CHEST 2V PA LATERAL CLINICAL HISTORY: SOB, F/U ABSCESS FOR RESOLUTION WITH ANTIBIOTICS,J85.2. TECHNIQUE: 2D digital imaging was performed. COMPARISON: CT CT CHEST W from 08/11/2020 CR XR CHEST 2V PA LATERAL from 08/13/2020 CR,RF RF BARIUM SWALLOW UGI from 08/15/2020 CR,RF RF BARIUM SWALLOW UGI from 08/15/2020 FINDINGS: Heart size is normal. The mediastinum is not widened. Hyperinflation again noted. No new left lung findings. The size of the concerning infiltrate in the right lower lobe has somewhat decreased but not resolved . No pleural effusions evident IMPRESSION: The size of the right lower lobe infiltrate is decreased but not completely resolved.Continued close follow-up recommended until resolution. DATA REPOSITORY: RADIATION DOSE DELIVERED:
== END 2020-10-09 01:26 ==
PROVIDERS: PCP Nurse Practitioner Family; Visit Provider Nurse Practitioner Family
DX: R06.02 Shortness of breath (principal); J85.2 Abscess of lung without pneumonia; R91.8 Other nonspecific abnormal finding of lung field; K70.30 Alcoholic cirrhosis of liver without ascites; K83.8 Other specified diseases of biliary tract; K76.0 Fatty (change of) liver, not elsewhere classified; R16.0 Hepatomegaly, not elsewhere classified
CPT/HCPCS: 71046; 76700

== ENCOUNTER 2020-10-09 01:26 | Outpatient (CLI) | payer MEDICARE, BC, SELFPAY ==
--- NOTE | 2020-10-09 | DI.US_ITS ---
EXAM: US ABDOMEN CLINICAL HISTORY: SCREEN FOR HEPATOMA,EVAL CHANGE IN CHRONIC CBD DILATATION,CIRRHOSIS,K70.30 TECHNIQUE: Ultrasound of complete upper abdomen performed using standard protocol. COMPARISON: US US RENAL from 07/22/2020 FINDINGS: There is no ascites evident. LIVER: Somewhat hyperechoic indicating steatosis. Mild hepatomegaly noted GALLBLADDER/BILIARY: There are no gallstones. No gallbladder wall edema nor pericholecystic fluid. The common hepatic duct isnot, measuring 2mm at the level of yissel hepatis. However, the CBD appears dilated, measuring 10-11 millimeter. No obvious calculi noted therein. PANCREAS: Poorly visualized due to overlying bowel gas SPLEEN: The spleen is not enlarged and there are no intrasplenic lesions evident. KIDNEYS:Kidneys exhibit normal size. No solid renal masses. There is a 3 millimeter echogenic focus in the right kidney which is possibly a nonobstructing calculus. No cortical cysts evident. ABDOMINAL AORTA: There is no evidence of obvious abdominal aortic aneurysm. Distal most abdominal aorta was not able to be visualized due to bowel gas. IVC: Normal diameter where visualized. IMPRESSION: 1. No evidence of gallstones. However, the common bile duct is significantly dilated to diameter 10 -11 millimeters. No obvious calculi were seen within the CBD but the lower most CBD and pancreatic h ead were not able to be visualized adequately due to bowel gas. CT scan is recommended. 2. Mild hepatomegaly and hepatic steatosis noted. 3. No ascites evident DATA REPOSITORY:
== END 2020-10-09 01:27 ==
LOC: DI 01:26
PROVIDERS: PCP Nurse Practitioner Family; Visit Provider Physician Assistant Medical
DX: K70.30 Alcoholic cirrhosis of liver without ascites (principal); K83.8 Other specified diseases of biliary tract; K76.0 Fatty (change of) liver, not elsewhere classified; R16.0 Hepatomegaly, not elsewhere classified
CPT/HCPCS: 76700

== ENCOUNTER 2020-12-19 02:14 | Outpatient (CLI) | payer MEDICARE, BC, SELFPAY ==
--- NOTE | 2020-12-19 15:25 | DI.CT_ITS ---
Exam(s) CT CHEST WO EXAM: CT CHEST WO CLINICAL HISTORY: F/U ABSCESS RT LOWER LOBE LUNG,J85.2,PULMONARY NODULE, R91.1,ASSESS FOR RES TECHNIQUE: COMPARISON: CT CT CHEST W from 08/11/2020 FINDINGS: CT examination of the chest was without contrast administration. Images obtained through the upper abdomen show nodular hepatic contour suggestive cirrhosis. Spleen is grossly unremarkable. Pancreas is atrophic. There is a large hiatal hernia. Visualized portions of the kidneys and adrenals are unremarkable. Previously described right pleural effusion and presumed right basilar pulmonary abscess have largely resolved since prior CT 2019. There is minimal residual scarring. Scarring is also again note d in the lung apices bilaterally. There are severe emphysematous changes again noted. No gross mediastinal or hilar adenopathy. Tracheobronchial tree appears intact. No thoracic aortic aneurysm. IMPRESSION: Marked interval improvement of previously noted right lower lobe pulmonary abscess and pleural effusi on. Residual scarring noted. Nodular findings likely scarring also again noted in the right upper l obe, follow-up chest CT recommended in 6 months. RADIATION DOSE DELIVERED: 437.11mGy.cm Total DLP RADIATION OPTIMIZATION: All CT scans at this facility use at least one of these dose optimization te chniques: automated exposure control; mA and/or kV adjustment per patient size (includes targeted exa ms where dose is matched to clinical indication); or iterative reconstruction.
== END 2020-12-19 02:34 ==
PROVIDERS: PCP Nurse Practitioner Family; Visit Provider Internal Medicine Critical Care Medicine
DX: J85.2 Abscess of lung without pneumonia (principal); R91.1 Solitary pulmonary nodule; J98.4 Other disorders of lung; K76.89 Other specified diseases of liver; K44.9 Diaphragmatic hernia without obstruction or gangrene
CPT/HCPCS: 71250

== ENCOUNTER 2021-01-17 15:31 | Emergency (ER) | payer MEDICARE, BC, SELFPAY ==
[2021-01-17 15:38] VITALS: BP 174/94; PULSE 85; RESP 22; TEMP 36.4; O2SAT 95
--- NOTE | 2021-01-17 15:45 | DI.CT_ITS ---
Exam(s) CT CHEST WO EXAM: CT CHEST WO CLINICAL HISTORY: left sided chest pain s/p fall TECHNIQUE: COMPARISON: CT CT CHEST WO from 12/19/2020 FINDINGS: CT examination of the chest was performed without contrast administration. Images obtained through the upper abdomen show nodular hepatic contour consistent with cirrhosis and show pancreatic atrophy. Spleen is grossly unremarkable. Visualized portions of adrenals and kidney s are unremarkable. The large hiatal hernia is noted. There is no gross mediastinal or hilar adenopathy. Note is made of coronary artery calcification. H eart is not enlarged. There are severe pulmonary emphysematous changes and areas of presumed scarring. Nodular radiodensit ies in bilateral lung apices, predominantly on the right, are again noted as seen on CT of December 19. Underlying neoplastic disease not excluded although the findings are most likely to represent scarrin g. Follow-up chest CT suggested in 6 months. No new intrapulmonary lesion since December 19. No new rib fracture identified. No pleural effusion or pneumothorax. IMPRESSION: No evidence of acute change. Follow-up chest CT recommended in 6 months to re-evaluate nodular radio densities in bilateral lung apices. RADIATION DOSE DELIVERED: 372.25mGy.cm Total DLP RADIATION OPTIMIZATION: All CT scans at this facility use at least one of these dose optimization te chniques: automated exposure control; mA and/or kV adjustment per patient size (includes targeted exa ms where dose is matched to clinical indication); or iterative reconstruction.
--- NOTE | 2021-01-17 15:58 | W.ED.GENAD ---
Discharge Plan Disposition Patient Disposition: AGAINST MEDICAL ADVICE Condition: Stable Discharge Details Clinical Impression: Traumatic chest pain Primary Care Provider: Stephie Jones ED Provider: Ajith Thurman Home Meds and New Rx's Prescriptions: Continued atorvastatin 40 mg tablet 40 mg PO DAILY Qty: 90 RF: 3 budesonide-formoterol [Symbicort] 160-4.5 mcg/actuation HFA aerosol inhaler 2 puff inhalation BID Qty: 3 RF: 3 Metamucil 660 GM powder 1 - 2 tbs PO DAILY RF: 0 carvedilol 6.25 mg tablet 6.25 mg PO BID Qty: 180 RF: 3 furosemide [Lasix] 20 mg tablet 20 mg PO QAM Qty: 90 RF: 3 pantoprazole 40 mg tablet,delayed release (DR/EC) 40 mg PO QAM Qty: 90 RF: 3 thiamine mononitrate (vit B1) [Vitamin B-1 (mononitrate)] 100 mg tablet 100 mg PO DAILY Qty: 90 RF: 3 spironolactone 50 mg tablet 100 mg PO DAILY Qty: 180 RF: 3 cholecalciferol (vitamin D3) 25 mcg (1,000 unit) Tablet 1,000 unit PO DAILY Qty: 30 RF: 0 acetaminophen [Tylenol] 325 mg Tablet 650 mg PO Q4H PRN PRNQty: 0 RF: 0 cyanocobalamin (vitamin B-12) [Vitamin B-12] 500 mcg Tablet 1,000 mcg PO DAILY Qty: 0 RF: 0 Discharge Instructions Instructions: Rib Contusion (ED) Additional Instructions: the results of your cat scan were not back before you decided to leave if pain continues in a week follow up with your primary care provider within 1 week if you feel more ill, have worsening pain or difficulty breathing return to the emergency department Medical Decision Making 75 yo male with cirrhosis and still drinks alcohol per patient, htn, hld, who comes in with left upper chest pain in mid axillary line and left upper back pain. HE states this started after he was sleeping 2 days ago and rolled out of bed in his sleep landing on his left chest. No loc and no other pain elsewhere, still had pain today so came here. He denies headache, neck pain, abdomen pain. He has tenderness over 3-5 ribs in left mid axillary line and over scapula. No midline C, T, or L spine tenderness. Has a palpable abdominal hernia in right mid abdomen he states has been there years and has no tenderness. Suspect contusion given lack of palpable deformities but will image to evaluate for fractures. He also has had an issue with swelling near his right elbow. He has swelling behind the elbow in the area of the olecranon consistent with olecranon bursitis. He states it was drained about 10 days ago by his orthopedist 10 days ago and states the culture was negative and fluid reaccumulated. He has no erythema and no warmth so doubt septic bursitis and do not feel drainage indicated especially with recent negative drainage. Will have him use arturo wrap and elevation and follow up with his orthopedist pt states he is leaving and doesn't want to wait for results as he doesn't want to wait any long. He is caox4 and has no signs he is under the influence of alcohol or drugs. He has decision making capacity and is leaving against my medical advise as ct results are not back. He understands missing pathology such as pneumothorax (though I don't see one on the CT) and pneumonia among others can lead to and permanent disability and he is willing to accept these risks. Also doesn't want to discussing antibiotics for his bursitis though my suspicion for this is low. He understands he can return immediately if he changes his mind or his condition worsens and advised to follow up with his pcp ct came back after he left and showed chronic lung findings that will require follow up and had staff forward this to his pcp's office as he will need f/u imaging if he chooses to monitor this. They did not they could not exclude abdominal hernia which he had on exam and was nontender so do not feel ct abd/pelvis acutely indicated. Differential Diagnosis Differential Diagnosis: olecranon bursitis, rib fracture Imaging Data Radiologic Study: Attestation: I personally reviewed and interpreted this imaging study as follows: Imaging: CT Scan Radiologist's impression: IMPRESSION: 1. Moderate hiatal hernia. 2. Cirrhosis. 3. Moderate centrilobular pulmonary emphysema. 4. Biapical nodular scarring with nodular components measuring up to 1.8 cm. For patients at low risk (minimal or absent history of smoking and of other known risk factors), recommend CT Chest at 3-6 months, then consider CT Chest at 18-24 months. For patients at high risk (history of smoking or of other known risk factors), recommend CT Chest at 3-6 months, then CT Chest at 18-24 months. (Reference: Esequiel) 5. Partially viewed pocket of air in the subcutaneous soft tissues of the anterior abdominal wall which cannot be further evaluated. Consider dedicated exam if clinically relevant. Underlying hernia is not excluded. 6. 4 mm nodule in the lingula (). 7. Old left rib fracture. 8. No acute fracture. HPI General Mode of arrival: ambulatory. Date/Time Provider Initiated Documentation: 01/17/21 15:47. Limitations to Documentation: no limitations. Information obtained by: patient. History of Present Illness 75 year old M presents to the emergency department with the chief complaint of left sided chest pain s/p falling out of bed 2 days ago, described as moderate, Quality is described as aching, and is localized to the chest and back. Patient reports no radiation. Patient started experiencing this day(s) (2) and it has been constant. No relieving factors improve symptom(s), Other factors that worsen symptoms (deep breathing) . Patient did receive the following treatments prior to arrival, none Related Data Home Medications Medication Instructions Recorded Confirmed Metamucil 1 - 2 tbs PO DAILY 02/25/18 01/17/21 acetaminophen [Tylenol] 650 mg PO Q4H PRN PRN #0 tab 06/18/20 01/17/21 cyanocobalamin (vitamin B-12) 1,000 mcg PO DAILY #0 tab 06/18/20 01/17/21 [Vitamin B-12] cholecalciferol (vitamin D3) 1,000 unit PO DAILY #30 tab 07/23/20 01/17/21 atorvastatin 40 mg tablet 40 mg PO DAILY #90 tab-cap 08/22/20 01/17/21 carvedilol 6.25 mg tablet 6.25 mg PO BID #180 tab 08/26/20 01/17/21 furosemide 20 mg tablet 20 mg PO QAM #90 tab 08/26/20 01/17/21 pantoprazole 40 mg tablet,delayed 40 mg PO QAM #90 tab 08/26/20 01/17/21 release spironolactone 50 mg tablet 100 mg PO DAILY #180 tab 08/26/20 01/17/21 thiamine mononitrate (vit B1) 100 100 mg PO DAILY #90 tab 08/26/20 01/17/21 mg tablet budesonide-formoterol HFA 160 2 puff INHALATION BID #3 unit 11/14/20 01/17/21 mcg-4.5 mcg/actuation aerosol inhaler Previous Rx's Medication Instructions Recorded acetaminophen [Tylenol] 650 mg PO Q4H PRN PRN #0 tab 06/18/20 cyanocobalamin (vitamin B-12) 1,000 mcg PO DAILY #0 tab 06/18/20 [Vitamin B-12] cholecalciferol (vitamin D3) 1,000 unit PO DAILY #30 tab 07/23/20 atorvastatin 40 mg tablet 40 mg PO DAILY #90 tab-cap 08/22/20 carvedilol 6.25 mg tablet 6.25 mg PO BID #180 tab 08/26/20 furosemide 20 mg tablet 20 mg PO QAM #90 tab 08/26/20 pantoprazole 40 mg tablet,delayed 40 mg PO QAM #90 tab 08/26/20 release spironolactone 50 mg tablet 100 mg PO DAILY #180 tab 08/26/20 thiamine mononitrate (vit B1) 100 100 mg PO DAILY #90 tab 08/26/20 mg tablet budesonide-formoterol HFA 160 2 puff INHALATION BID #3 unit 11/14/20 mcg-4.5 mcg/actuation aerosol inhaler Allergies Allergy/AdvReac Type Severity Reaction Status Date / Time No Known Allergies Allergy Verified 01/17/21 15:43 General Stated Complaint: Chest/Rib JAMEE: 3 Review of Systems All systems reviewed & are unremarkable except as noted in HPI and below Constitutional Constitutional: Denies chills, Denies fever(s) and Denies weakness Respiratory Respiratory: Denies cough Gastrointestinal Gastrointestinal: Denies abdominal pain, Denies nausea and Denies vomiting Musculoskeletal Musculoskeletal: Denies joint swelling Neurologic Neurologic: Denies weakness [facility] Medical History (Updated 01/17/21 @ 17:51 by Ajith Thurman MD) 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 Hale Derm Chronic obstructive lung disease (03/15/13) 09/06/2020 PFTs ([facility] [place]): moderate-severe (FEV1 50-59%) Closed fracture of left orbit Dysphagia 10/17/2018 EGD ([facility] [place]): Smalls's & interval resolution of esophageal varices seen on previous EGD (see Smalls's dx comments for details); 06/06/2019 Barium Swallow: some dysmotility & aspiration --> referred to Speech Therapy 04/12/20 [facility] [place] Esophageal Manometry; 05/17/2020 EGD: Grade I esophageal varices, duodenal erosions w/o bleeding, no obstructive cause for dysphagia Esophageal varices 06/22/2017 EGD (Dr. Cheney): grade 1 w/ stigmata of bleeding; 10/17/2018 EGD ([facility] [place]): no evidence of esophageal or gastric varices on carvedilol 6.25 mg BID Family history of malignant melanoma ov note dated 05/10/20-Dr. Hale Fracture of nasal bone Frailty syndrome in geriatric patient Frequent falls Gastroesophageal reflux disease (03/15/13) HH surgery 08/1990 GERD (gastroesophageal reflux disease) Hepatic cirrhosis (01/14/18) [facility] [place] GI 02/24/2018 Fibroscan: stage 4 liver fibrosis, consistent with cirrhosis with possible portal HTN 06/22/2018 EGD (Dr. 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/24/13) S/p repair L; then occurred on R side and now chronic Hyperlipidemia (03/24/13) 11/2018 labs: good response to high potency statin, continue Hyperlipidemia Hypertension (08/01/14) Incisional hernia, without obstruction or gangrene (01/17/18) [facility] [place] [facility] consult Incontinence of feces Intertrochanteric fracture of left femur Lives alone Malignant neoplasm of prostate Other bursitis of elbow, right elbow (01/02/21) [facility] [place] Derm/Geoffrey Periprosthetic fracture around internal prosthetic left hip joint Rectosphincteric dyssynergia Manifested as fecal incontinence and constipation; resolved with daily fiber supplementation Restless leg syndrome Rotator cuff syndrome (03/24/13) S/p B/L repair Seborrheic keratosis (02/18/17) Dr. Hale Derm Sigmoid diverticulosis (02/01/18) 02/01/2018 colonoscopy Squamous cell carcinoma Face Tobacco use disorder 1.5- 2 PPD not interested in quitting 08/2020 Surgical History Colonoscopy - MAC (02/01/18) H/O colonoscopy 05/17/20 at [facility] [place] - no need for further to have any further colonscopy per report H/O endoscopy 05/17/20 [facility] [place] History of esophagogastroduodenoscopy (EGD) (06/22/18) dr cheney, grade I esophageal varices Left shoulder (09/24/07) Marci Fundoplication (03/24/85) Prostatectomy (~05/2007) Repair of incision from Marci fundoplication (03/24/87) right shoulder (03/24/00) S/P skin biopsy (~09/2020) R inguinal fold on margins of scrotum-Dr Hale Family History Mother , resp failure due to COPD age 69 COPD (chronic obstructive pulmonary disease) Smoker Father , widespread cancer age 73 Personal history of malignant neoplasm prostate Malignant melanoma Smoker Prostate cancer COPD (chronic obstructive pulmonary disease) Son No problems noted. Daughter No problems noted. Brother , age 68 from COPD COPD (chronic obstructive pulmonary disease) Smoker Sister , age 62 from pancreatic cancer Smoker Pancreatic cancer Social History Smoking/Tobacco Use Status: Current every day Tobacco Type: cigarettes Tobacco: How many years used: 60 Quit status: not considering quitting Second Hand Exposure: No Counseling given: counseling >3 minutes Smoking risk assessment performed?: Yes Alcohol Intake: current Alcohol Intake frequency: 3 or more drinks per day Alcohol type: beer and hard liquor Counseling provided: other Drug use: Never Substance use type: does not use Counseling provided: provider counseling Caregiver/Support person: No Household members: none Housing: house Number of Children: 2 number of grandchildren: 3 Communication Needs: Corrective Lenses Education Level: high school Do you need help understanding health information?: Often 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; 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 Do you think of yourself as: straight/heterosexual Current gender identity: male What is your relationship status?: How often do you talk on the phone with friends or family?: once per week How often do you get together with friends or relatives?: once per week Panel score (0-1 are the most socially isolated patients): 0 What type of physical activity do you participate in: none Special tg needs: No Agree to transfusion: No Seatbelt use: always Water heater temp set <120 deg: Yes Working smoke detector in home: Yes Fire extinguisher in home: Yes Carbon monox detector in home: Yes Firearms in home: No Do you feel safe at home: Yes Do you feel safe in your relationship?: Yes Exam Const General: no acute distress Orientation: alert HENMT Head: normal to inspection Ears: external ears normal General nose exam: external nose normal Mouth: moist mucous membranes Eyes General: appearance normal, both eyes and all related structures Neck Neck: normal visual inspection Chest Chest: tenderness Resp Effort & Inspection: normal respiratory effort and able to speak in complete sentences Cardio Rate: regular rate GI Palpation: soft and nontender Skin General skin exam: no rashes or lesions noted Neuro General: patient alert and patient oriented x3 Extrem General: normal to inspection Psych Mental Status: mental status grossly normal Course Vital Signs Vital signs: Vital Signs Temperature 36.4 C L 01/17/21 15:38 Pulse 85 01/17/21 15:38 Respiratory Rate 01/17/21 15:38 Blood Pressure 174/94 H 01/17/21 15:38 Pulse Oximetry 95 01/17/21 15:38 Temperature 36.4 C L 01/17/21 15:38 Temperature Source Skin 01/17/21 15:38 Pulse 85 01/17/21 15:38 Respiratory Rate 22 01/17/21 15:38 Respiratory Effort Non-Labored 01/17/21 15:46 Blood Pressure 174/94 H 01/17/21 15:38 Blood Pressure Position Sitting 01/17/21 15:38 Pulse Oximetry 95 01/17/21 15:38 Oxygen Delivery Method Room Air 01/17/21 15:38 Oxygen Flow Rate 0 01/17/21 15:38 Pain Level 6 01/17/21 15:38 Comment 6 for ribs 01/17/21 15:38
[2021-01-17] MEDS: Ibuprofen 600 MG TAB PO (16:02)
--- NOTE | 2021-01-17 17:57 | DI.VRAD_ITS ---
PROCEDURE INFORMATION: Exam: CT Chest Without Contrast; Diagnostic Exam date and time: 01/17/2021 3:59 PM Age: 75 years old Clinical indication: Chest wall pain; Patient HX: Left sided chest pain S/P fall TECHNIQUE: Imaging protocol: Diagnostic computed tomography of the chest without contrast. 3D rendering (Not supervised by radiologist): MIP and/or 3D reconstructed images were created by the technologist. COMPARISON: CT CHEST WO 12/19/2020 3:21 PM FINDINGS: Lungs: Moderate centrilobular pulmonary emphysema. Biapical nodular scarring with nodular components measuring up to 1.8 cm. 4 mm nodule in the lingula (). Pleural spaces: Unremarkable. No pneumothorax. No pleural effusion. Heart: Unremarkable. No cardiomegaly. No pericardial effusion. Mediastinal space: Moderate hiatal hernia. Aorta: Unremarkable. No aortic aneurysm. Lymph nodes: Unremarkable. No enlarged lymph nodes. Liver: cirrhosis. Pancreas: pancreatic atrophy. Bones/joints: Degenerative changes in the spine. Old left rib fracture. No acute fracture. Soft tissues: Partially viewed pocket of air in the subcutaneous soft tissues of the anterior abdominal wall which cannot be further evaluated. Consider dedicated exam if clinically relevant. Underlying hernia is not excluded. Partially viewed anterior abdominal wall mesh. Other findings: Atherosclerosis. IMPRESSION: 1. Moderate hiatal hernia. 2. Cirrhosis. 3. Moderate centrilobular pulmonary emphysema. 4. Biapical nodular scarring with nodular components measuring up to 1.8 cm. For patients at low risk (minimal or absent history of smoking and of other known risk factors), recommend CT Chest at 3-6 months, then consider CT Chest at 18-24 months. For patients at high risk (history of smoking or of other known risk factors), recommend CT Chest at 3-6 months, then CT Chest at 18-24 months. (Reference: Esequiel) 5. Partially viewed pocket of air in the subcutaneous soft tissues of the anterior abdominal wall which cannot be further evaluated. Consider dedicated exam if clinically relevant. Underlying hernia is not excluded. 6. 4 mm nodule in the lingula (). 7. Old left rib fracture. 8. No acute fracture. REFERENCES: Esequiel Pierce, et al. Guidelines for Management of Incidental Pulmonary Nodules Detected on CT Images: From the Fleischner Society 2017. Radiology. 2017;284(1):228-243. Dictated and Authenticated by: Doyle Fung MD. Ordering:NORMA Canseco MD
== END 2021-01-17 18:05 | disposition left against medical advice (07) ==
PROVIDERS: Emergency Provider Emergency Medicine; PCP Nurse Practitioner Family
DX: R07.82 Intercostal pain (principal); W06.XXXA Fall from bed, initial encounter
CPT/HCPCS: 71250; 99284; 99283

== ENCOUNTER 2021-02-15 03:03 | Inpatient (IN) | payer MEDICARE, BC, SELFPAY ==
[2021-02-15] VITALS (19 sets, daily range): BP systolic 118–159; BP diastolic 64–85; PULSE 66–82; RESP 11–18; TEMP 36.2–36.7; O2SAT 90–95
--- NOTE | 2021-02-15 03:00 | DI.RAD_ITS ---
Exam(s) XR CHEST 1V IN DI DEPT EXAM: XR CHEST 1V IN DI DEPT CLINICAL HISTORY: central cp after fall TECHNIQUE: 2D digital imaging was performed. COMPARISON: CT CT CHEST WO from 01/17/2021 FINDINGS: LUNGS: Marked hyperinflation. The severe emphysematous changes. Scarring and fibrotic changes. No focal infiltrate. No pleural abnormality seen. HEART: Normal. MEDIASTINUM: Normal. BONES: Old left lower rib fractures. IMPRESSION: Emphysematous changes. No acute pulmonary findings. DATA REPOSITORY: RADIATION DOSE DELIVERED:
--- NOTE | 2021-02-15 03:00 | DI.RAD_ITS ---
Exam(s) XR KNEE LT 2V AP,LAT EXAM: XR KNEE LT 2V AP,LAT CLINICAL HISTORY: ETOH, knee pain after fall. TECHNIQUE: 2D digital imaging was performed. COMPARISON: CR,XR XR FEMUR LT from 02/15/2021 CR,XR XR FEMUR LT from 02/15/2021 FINDINGS: Exam is extremely limited by positioning and overlying clothing. There is a spiral fracture of the d istal femoral metadiaphysis. There is displacement half shaft with medially and mild posterior displ acement. The medial portion of the medial tibial plateau is obscured. Medial tibial plateau fractur e is questioned. Vascular calcifications are seen. IMPRESSION: Displaced distal femur fracture. Question of medial tibial plateau fracture. CT recommended. DATA REPOSITORY: RADIATION DOSE DELIVERED:
--- NOTE | 2021-02-15 03:00 | DI.RAD_ITS ---
Exam(s) XR PELVIS AP EXAM: XR PELVIS AP CLINICAL HISTORY: ETOH, hip pain after fall. TECHNIQUE: 2D digital imaging was performed. COMPARISON: CR XR HIP LT COMPLETE AP PELVIS from 07/17/2020 FINDINGS: No change in compression screw proximal femur. No acute fracture or evidence of dislocation. Chron ic surrounding bony densities. Moderate degenerative changes right hip. Mild degenerative changes l eft hip. Vascular calcifications. IMPRESSION: No acute abnormality. DATA REPOSITORY: RADIATION DOSE DELIVERED:
--- NOTE | 2021-02-15 03:00 | DI.RAD_ITS ---
Exam(s) XR FEMUR LT EXAM: XR FEMUR LT CLINICAL HISTORY: ETOH, femur pain after fall. TECHNIQUE: 2D digital imaging was performed. COMPARISON: None. FINDINGS: Intramedullary néstor proximal femur related to old intertrochanteric fracture. Chronic bony densities around the femoral head and neck. No dislocation. No change in hardware. Acute fracture of the dis tucker femur with medial and posterior displacement. The femoral condyles and proximal tibia are obscur ed. IMPRESSION: Acute fracture distal femur. Old fracture with hardware, unchanged proximal femur. DATA REPOSITORY: RADIATION DOSE DELIVERED:
[2021-02-15] MEDS: ACETAMINOPHEN 1,000 MG/100 ML BTL 400 MG IVPB (03:29)
[2021-02-15 03:30] LABS: Abs Immature Grans 0.06 10^3/uL (0.0-0.06); Absolute Basophil Count 0.05 10^3/uL (0.0-0.2); Absolute Eosinophil Count 0.18 10^3/uL (0.0-0.7); Absolute Lymphocyte Count 1.48 10^3/uL (1.2-3.4); Absolute Monocyte Count 0.91 10^3/uL (0.1-0.8); Absolute Neutrophil Count 5.91 10^3/uL (1.2-6.7); Basophils % 0.6; Eosinophils % 2.1; HCT 38.6 % (40.0-50.0); HGB 12.4 g/dL (13.5-17.5); Immature Grans % 0.7; Lymphocytes % 17.2; MCH 27.9 pg (27.0-33.0); MCHC 32.1 % (32.0-36.0); MCV 86.7 fL (80-95); MPV 8.2 fL (8.0-11.0); Monocytes % 10.6; Neutrophils % 68.8; Nucleated RBC 0 %; Platelet Count 234 10^3/uL (130-400); RBC 4.45 10^6/uL (4.36-5.78); RDW 15.7 % (11.8-14.1); RDW-SD 49.4 fL; WBC 8.59 10^3/uL (4.4-10.8)
--- NOTE | 2021-02-15 03:30 | W.ED.GENAD ---
Discharge Plan Disposition Patient Disposition: [facility] Condition: Stable Discharge Details Chief Complaint: Orthopedic Clinical Impression: Femur fracture, left Admit Date/Time: 02/15/21 05:28 Admit Provider: Colin Moreland Attending Provider: Colin Moreland Primary Care Provider: Stephie Jones ED Provider: Kenny Pitt Discharge Data Discharge Date/Time-TO BE ENTERED AT DEPARTURE: 02/15/21 06:11 Medical Decision Making This is a 75-year-old male with a past medical history of abdominal hernia, alcoholism, Smalls's esophagus in the past, hypertension, high cholesterol, GERD, COPD, who presents today for evaluation of fall. Patient was drinking this evening, and while walking with his walker fell and hit his anterior chest and his left knee/thigh. He denies hitting his head, and he recalls the event. He states he was very upset when EMS would not allow him to finish his alcoholic drink prior to transport. Aside for pain in his right knee and thigh he denies any other pain. He denies any headache, neck pain, chest pain, shortness of breath, numbness tingling or weakness. Exam demonstrates an abrasion over the anterior chest over the sternum, but no tenderness, notable tenderness over the mid to distal thigh and knee on the left. No other signs of significant trauma or tenderness. Patient does appear intoxicated. We will get imaging of the areas where there is evidence of trauma. Patient denies hitting his head. He denies any loss of consciousness. Fall was mechanical per patient, likely secondary to his intoxicated state and using his walker. 5:30 AM Patient's laboratory work-up stable, alcohol level actually negative. EKG is unchanged. X-ray findings show evidence of an acute oblique fracture of the distal femoral metadiaphysis, lipohemarthrosis. Chest x-ray negative. Head CT negative. I did contact the hospitalist Dr. Sotelo and he agrees with the assessment and plan for admission and orthopedic consultation. I have extensively reviewed the treatment plan with the patient. I have addressed all patient concerns at this time. I have also discussed the plan with the admitting physician and they agree with the current assessment and plan and have agreed to assume responsibility for the patient. All parties demonstrate verbal understanding and agreement with our assessment and plan at this time. The documentation in this chart was dictated using [employer] dictation software. Please excuse any dictation errors. He has asked me to place admission orders on his behalf. 6:30 AM Unfortunately it later was made clear that there is no orthopedics coverage for the weekend. We will reach out to [facility] for potential transfer surgical management. Patient has already been transferred to [facility], however we will help facilitate transfer process. 8:01 AM [facility] did not return our calls for orthopedic consult. [facility] was contacted, I spoke with Dr. Mendoza of orthopedics. He agrees with the assessment and plan. He accepts the patient for transfer. FINDINGS: Lungs: Unremarkable. No consolidation. Pleural spaces: Unremarkable. No pleural effusion. No pneumothorax. Heart/Mediastinum: Unremarkable. No cardiomegaly. Bones/joints: Unremarkable. IMPRESSION: No acute findings. Thank you for allowing us to participate in the care of your patient. Dictated and Authenticated by: Ajith Reyes MD 02/15/2021 5:11 AM Eastern Time ([place] & [place]) FINDINGS: Bones/joints: Question acute fracture of the medial tibial plateau, multiple oblique views can be performed for further evaluation as clinically warranted. acute fracture distal femoral metaphysis. Soft tissues: Normal. Vasculature: Atherosclerotic calcifications. IMPRESSION: 1. Question acute fracture of the medial tibial plateau, multiple oblique views can be performed for further evaluation as clinically warranted. 2. Acute fracture distal femoral metaphysis. FINDINGS: Bones/joints: Intramural néstor and fixation screws transfix chronic fracture deformity left proximal femur. No acute fractures. Soft tissues: Unremarkable. IMPRESSION: No acute findings. FINDINGS: Bones/joints: Acute fracture distal femoral metaphysis. Unable to exclude fracture of the medial tibial plateau on submitted images. Intramural néstor and fixation screws transfix remote fracture deformity of the proximal femur. Soft tissues: Unremarkable. Vasculature: Atherosclerotic calcifications. IMPRESSION: Acute fracture distal femoral metaphysis FINDINGS: Bones/joints: There intramural néstor and fixation screws transfix chronic fracture deformity of the proximal femur. Acute oblique fracture of the distal femoral metadiaphysis. Lipohemarthrosis. Soft tissues: Edema and hemorrhage within the musculature of the distal thigh adjacent to the fracture. IMPRESSION: 1. Acute oblique fracture of the distal femoral metadiaphysis. 2. Lipohemarthrosis FINDINGS: Bones/joints: There intramural néstor and fixation screws transfix chronic fracture deformity of the proximal femur. Acute oblique fracture of the distal femoral metadiaphysis. Lipohemarthrosis. Soft tissues: Edema and hemorrhage within the musculature of the distal thigh adjacent to the fracture. IMPRESSION: 1. Acute oblique fracture of the distal femoral metadiaphysis. 2. Lipohemarthrosis HPI General Date/Time Provider Initiated Documentation: 02/15/21 03:11. 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 Patient was drinking this evening, and while walking with his walker fell and hit his anterior chest and his left knee/thigh. He denies hitting his head, and he recalls the event. He states he was very upset when EMS would not allow him to finish his alcoholic drink prior to transport. Aside for pain in his right knee and thigh he denies any other pain. He denies any headache, neck pain, chest pain, shortness of breath, numbness tingling or weakness. Related Data Home Medications Medication Instructions Recorded Confirmed Metamucil 1 - 2 tbs PO DAILY 02/25/18 02/15/21 acetaminophen [Tylenol] 650 mg PO Q4H PRN PRN #0 tab 06/18/20 02/15/21 cyanocobalamin (vitamin B-12) 1,000 mcg PO DAILY #0 tab 06/18/20 02/15/21 [Vitamin B-12] cholecalciferol (vitamin D3) 1,000 unit PO DAILY #30 tab 07/23/20 02/15/21 carvedilol 6.25 mg tablet 6.25 mg PO BID #180 tab 08/26/20 02/15/21 furosemide 20 mg tablet 20 mg PO QAM #90 tab 08/26/20 02/15/21 pantoprazole 40 mg tablet,delayed 40 mg PO QAM #90 tab 08/26/20 02/15/21 release spironolactone 50 mg tablet 100 mg PO DAILY #180 tab 08/26/20 02/15/21 thiamine mononitrate (vit B1) 100 100 mg PO DAILY #90 tab 08/26/20 02/15/21 mg tablet budesonide-formoterol HFA 160 2 puff INHALATION BID #3 unit 11/14/20 02/15/21 mcg-4.5 mcg/actuation aerosol inhaler atorvastatin 40 mg tablet 40 mg PO DAILY #90 tab-cap 02/10/21 02/15/21 Previous Rx's Medication Instructions Recorded acetaminophen [Tylenol] 650 mg PO Q4H PRN PRN #0 tab 06/18/20 cyanocobalamin (vitamin B-12) 1,000 mcg PO DAILY #0 tab 06/18/20 [Vitamin B-12] cholecalciferol (vitamin D3) 1,000 unit PO DAILY #30 tab 07/23/20 carvedilol 6.25 mg tablet 6.25 mg PO BID #180 tab 08/26/20 furosemide 20 mg tablet 20 mg PO QAM #90 tab 08/26/20 pantoprazole 40 mg tablet,delayed 40 mg PO QAM #90 tab 08/26/20 release spironolactone 50 mg tablet 100 mg PO DAILY #180 tab 08/26/20 thiamine mononitrate (vit B1) 100 100 mg PO DAILY #90 tab 08/26/20 mg tablet budesonide-formoterol HFA 160 2 puff INHALATION BID #3 unit 11/14/20 mcg-4.5 mcg/actuation aerosol inhaler atorvastatin 40 mg tablet 40 mg PO DAILY #90 tab-cap 02/10/21 Allergies Allergy/AdvReac Type Severity Reaction Status Date / Time No Known Allergies Allergy Verified 02/15/21 03:11 General Stated Complaint: Orthopedic JAMEE: 3 Review of Systems All systems reviewed & are unremarkable except as noted in HPI and below PFSH Medical History 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 Geoffrey Dumont Alcohol use disorder not interested in quitting 08/2020 approx 48-60 oz of beer + hard liquor daily Aspiration pneumonia due to regurgitated food Smalls's esophagus 10/17/2018 EGD ([facility] [place] [place]): esophageal mucosal changes classified as Smalls's stage C0-M1 per [place] criteria (also showed resolution of esophageal varices on carvedilol 6.25 mg BID) Basal cell carcinoma (BCC) Face Bilateral lower extremity edema (01/14/18) Related to cirrhosis BPH w urinary obs/LUTS (03/10/13) C3 cervical fracture Al hemangioma (02/18/17) Dr. Hale Derm Chronic obstructive lung disease (03/15/13) 09/06/2020 PFTs ([facility] [place] [place]): moderate-severe (FEV1 50-59%) Closed fracture of left orbit Dysphagia 10/17/2018 EGD ([facility] [place] [place]): Smalls's & interval resolution of esophageal varices seen on previous EGD (see Smalls's dx comments for details); 06/06/2019 Barium Swallow: some dysmotility & aspiration --> referred to Speech Therapy 04/12/20 [facility] [place] [place] Esophageal Manometry; 05/17/2020 EGD: Grade I esophageal varices, duodenal erosions w/o bleeding, no obstructive cause for dysphagia Esophageal varices 06/22/2017 EGD (Dr. Cheney): grade 1 w/ stigmata of bleeding; 10/17/2018 EGD ([facility] [place] [place]): no evidence of esophageal or gastric varices on carvedilol 6.25 mg BID Family history of malignant melanoma ov note dated 05/10/20-Dr. Hale Fracture of nasal bone Frailty syndrome in geriatric patient Frequent falls Gastroesophageal reflux disease (03/15/13) HH surgery 08/1990 GERD (gastroesophageal reflux disease) Hepatic cirrhosis (01/14/18) [facility] [place] [place] GI 02/24/2018 Fibroscan: stage 4 liver fibrosis, consistent with cirrhosis with possible portal HTN 06/22/2018 EGD (Dr. Cheney): confirmed portal HTN with grade 1 esophageal varices Sodium restriction 2000 mg for ascites control Hiatal hernia Noted on 01/17/2021 CT History of basal cell carcinoma Hydrocele of testis (03/24/13) S/p repair L; then occurred on R side and now chronic Hyperlipidemia (03/24/13) 11/2018 labs: good response to high potency statin, continue Hyperlipidemia Hypertension (08/01/14) Incisional hernia, without obstruction or gangrene (01/17/18) [facility] [place] [place] GI consult Incontinence of feces Intertrochanteric fracture of left femur Lives alone Malignant neoplasm of prostate Other bursitis of elbow, right elbow (01/02/21) Periprosthetic fracture around internal prosthetic left hip joint Rectosphincteric dyssynergia Manifested as fecal incontinence and constipation; resolved with daily fiber supplementation Restless leg syndrome Rotator cuff syndrome (03/24/13) S/p B/L repair Seborrheic keratosis (02/18/17) Dr. Hale Derm Sigmoid diverticulosis (02/01/18) 02/01/2018 colonoscopy Squamous cell carcinoma Face Tobacco use disorder 1.5- 2 PPD not interested in quitting 08/2020 Surgical History Colonoscopy - MAC (02/01/18) H/O colonoscopy 05/17/20 at [facility] [place] [place] - no need for further to have any further colonscopy per report H/O endoscopy 05/17/20 [facility] [place] [place] History of esophagogastroduodenoscopy (EGD) (06/22/18) dr cheney, grade I esophageal varices Left shoulder (09/24/07) Marci Fundoplication (03/24/85) Prostatectomy (~05/2007) Repair of incision from Marci fundoplication (03/24/87) right shoulder (03/24/00) S/P skin biopsy (~09/2020) R inguinal fold on margins of scrotum-Dr Hale Family History Mother , resp failure due to COPD age 69 COPD (chronic obstructive pulmonary disease) Smoker Father , widespread cancer age 73 Personal history of malignant neoplasm prostate Malignant melanoma Smoker Prostate cancer COPD (chronic obstructive pulmonary disease) Son No problems noted. Daughter No problems noted. Brother , age 68 from COPD COPD (chronic obstructive pulmonary disease) Smoker Sister , age 62 from pancreatic cancer Smoker Pancreatic cancer Social History Smoking/Tobacco Use Status: Current every day Tobacco Type: cigarettes Tobacco: How many years used: 60 Quit status: not considering quitting Second Hand Exposure: No Counseling given: counseling >3 minutes Smoking risk assessment performed?: Yes Alcohol Intake: current Alcohol Intake frequency: 3 or more drinks per day Alcohol type: beer and hard liquor Counseling provided: other Drug use: Never Substance use type: does not use Counseling provided: provider counseling Caregiver/Support person: No Household members: none Housing: house Number of Children: 2 number of grandchildren: 3 Communication Needs: Corrective Lenses Education Level: high school Do you need help understanding health information?: Often 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; 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 Do you think of yourself as: straight/heterosexual Current gender identity: male What is your relationship status?: How often do you talk on the phone with friends or family?: once per week How often do you get together with friends or relatives?: once per week Panel score (0-1 are the most socially isolated patients): 0 What type of physical activity do you participate in: none Special tg needs: No Agree to transfusion: No Seatbelt use: always Water heater temp set <120 deg: Yes Working smoke detector in home: Yes Fire extinguisher in home: Yes Carbon monox detector in home: Yes Firearms in home: No Do you feel safe at home: Yes Do you feel safe in your relationship?: Yes Exam Narrative Exam Narrative: 1.Const: Well-nourished, Well-developed, appearing stated age 2.Eyes: PERRL, no conjunctival injection, and symmetrical lids. 3.ENT: Atraumatic external nose and ears. Moist MM. Neck: Symmetric, trachea midline, No thyromegaly. There is no evidence of raccoon eyes, zelaya sign, CSF rhinorrhea, mastoid tenderness, cranial crepitus, hemotympanum, exophthalmos, or hyphema. Patient demonstrates intact dentition with no signs of tooth avulsion or fracture, no signs of jaw deformity, no evidence of a LeFort's fracture, with an intact palate, nose and orbital region. There is no evidence of a nasal septal hematoma. No proptosis. Jaw closes symmetrically. Airway is clear. 4.CVS: +S1/S2, No murmurs or gallops. Peripheral pulses 2+ and equal in all extremities. Brisk capillary refill in all extremities. 5.RESP: Unlabored respiratory effort. Clear to auscultation bilaterally. No wheezes rales or rhonchi 6.GI: Soft, Nontender/Nondistended, No hepatosplenomegaly. No guarding or rebound. Reducible hernia noted in the left abdominal wall 7.MSK: No trauma to head or neck. No midline cervical thoracic or lumbar spine tenderness. Patient does have mild abrasion to the anterior chest wall over the sternum, no tenderness here on palpation. No significant hip tenderness, however the patient does have tenderness in the medial and distal left thigh as well as in the left knee. No tenderness over the tib-fib on both extremities. Normal sensation of the lower extremities, normal movement of the feet. 8.Skin: Warm, Dry. No rashes or lesions. 9.Neuro: oracle etl developer II-XII grossly intact. Sensation grossly intact, no focal neurologic deficits. 10.Psych: (AAO) x3. Appropriate mood and affect, but does appear intoxicated Course Vital Signs Vital signs: Vital Signs Temperature 36.2 C L 02/15/21 03:06 Pulse 74 02/15/21 03:06 Respiratory Rate 18 02/15/21 03:06 Blood Pressure 159/84 H 02/15/21 03:06 Pulse Oximetry 95 02/15/21 03:06 Temperature 36.2 C L 02/15/21 03:06 Pulse 74 02/15/21 03:06 Respiratory Rate 18 02/15/21 03:06 Respiratory Effort Non-Labored 02/15/21 03:12 Blood Pressure 159/84 H 02/15/21 03:06 Pulse Oximetry 95 02/15/21 03:06 Pain Level 3 02/15/21 03:06 Lab/Test Results Lab/Test Results: Laboratory Tests Range/Units 02/15/21 03:24 WBC (4.4-10.8) 10^3/uL 8.59 RBC (4.36-5.78) 10^6/uL 4.45 Hgb (13.5-17.5) g/dL 12.4 L Hct (40.0-50.0) % 38.6 L MCV (80-95) fL 86.7 MCH (27.0-33.0) pg 27.9 MCHC (32.0-36.0) % 32.1 RDW (11.8-14.1) % 15.7 H Plt Count (130-400) 10^3/uL 234 MPV (8.0-11.0) fL 8.2 Immature Gran % 0.7 Neutrophils % 68.8 Lymphocytes % 17.2 Monocytes % 10.6 Eosinophils % 2.1 Basophils % 0.6 Nucleated RBC % % 0 Absolute Neutrophils (1.2-6.7) 10^3/uL 5.91 Absolute Lymphocytes (1.2-3.4) 10^3/uL 1.48 Absolute Monocytes (0.1-0.8) 10^3/uL 0.91 H Absolute Eosinophils (0.0-0.7) 10^3/uL 0.18 Absolute Basophils (0.0-0.2) 10^3/uL 0.05
[2021-02-15 03:44] LABS: ALT 20 U/L (16-63); AST 25 U/L (15-37); Albumin 3.4 g/dL (3.4-5.0); Alkaline Phosphatase 92 U/L (46-116); Anion Gap 6.5 mmol/L (3-11); BUN 11 mg/dL (7-18); Bilirubin, Total 0.3 mg/dL (0.2-1.0); CO2 28.5 mmol/L (21.0-32.0); CREATININE 0.8 mg/dL (0.70-1.30); Chloride 96 mmol/L (98-107); Glucose 114 mg/dL (74-106); Potassium 4.3 mmol/L (3.5-5.1); Sodium 131 mmol/L (136-145); Total Protein 7.6 g/dL (6.4-8.2)
[2021-02-15 03:45] LABS: ETHANOL BLOOD < 3.0 mg/dL (<3)
--- NOTE | 2021-02-15 03:45 | DI.CT_ITS ---
Exam(s) CT HEAD WO EXAM: CT HEAD WO CLINICAL HISTORY: fall, hit head. TECHNIQUE: Imaging Protocol: Axial computed tomography images with coronal and sagittal reformatted images were created and reviewed COMPARISON: No exams were available for comparison FINDINGS: Ventricles and Extra axial spaces: Normal in size and morphology for the patient's age. Hemorrhage: None. Cerebral parenchyma: Atrophy. White matter changes consistent with small vessel disease. Midline shift: None. Brainstem/Cerebellum: Normal. Calvarium: Normal. Visualized Paranasal sinuses/Mastoids: Clear. IMPRESSION: No acute abnormality. RADIATION DOSE DELIVERED: 879.27mGy.cm Total DLP 879.27mGy.cm Total DLP DATA REPOSITORY: All CT scans at this facility are submitted to the National Radiology Data Registry (NRDR) Dose Index Registry (DIR) with the [employer] (ACR). RADIATION OPTIMIZATION: All CT scans at this facility use at least one of these dose optimization te chniques: automated exposure control; mA and/or kV adjustment per patient size (includes targeted exa ms where dose is matched to clinical indication); or iterative reconstruction.
--- NOTE | 2021-02-15 03:45 | RT.EKG_ITS ---
APPROVED REPORT Exam: Resting ECG Reason for Exam: fall Patient Location: E HR:65 bpm ECG Measurements Heart Rate 65 AXIS IA 134 P -16 QRSd 137 QRS 75 QT 442 T 72 QTc 455 Conclusion Sinus rhythm...normal P axis, V-rate 60- 99 Atrial premature complex...SV complex w/ short R-R interval Right bundle branch block...QRSd>120, terminal axis(90,270) Physician: no stemi, RBBB present
--- NOTE | 2021-02-15 04:15 | DI.CT_ITS ---
Exam(s) CT LOWER EXTREMITY LT WO EXAM: CT LOWER EXTREMITY LT WO CLINICAL HISTORY: distal femur fx. TECHNIQUE: Imaging Protocol: Axial computed tomography images with coronal and sagittal reformatted images were created and reviewed. COMPARISON: No exams were available for comparison FINDINGS: Bones: Displaced,oblique fracture distal femoral metadiaphysis. The fracture extends to the patellofe moral joint. There are a few tiny comminuted fragments. Severe underlying osteoporosis. Old proxima l femur fracture with hardware in place. Adjacent chronic calcifications. No acetabular fracture. N o fracture is seen involving the patella or proximal tibia or fibula. Joints: Large lipohemarthrosis. IMPRESSION: Displaced fracture of the distal femoral metadiaphysis. Large lipohemarthrosis. RADIATION DOSE DELIVERED: 505.25mGy.cm Total DLP DATA REPOSITORY: All CT scans at this facility are submitted to the National Radiology Data Registry (NRDR) Dose Index Registry (DIR) with the [employer] (ACR). RADIATION OPTIMIZATION: All CT scans at this facility use at least one of these dose optimization te chniques: automated exposure control; mA and/or kV adjustment per patient size (includes targeted exa ms where dose is matched to clinical indication); or iterative reconstruction.
--- NOTE | 2021-02-15 05:02 | DI.VRAD_ITS ---
PROCEDURE INFORMATION: Exam: CT Head Without Contrast Exam date and time: 02/15/2021 3:48 AM Age: 75 years old Clinical indication: Other: Fall, hit head TECHNIQUE: Imaging protocol: Computed tomography of the head without contrast. Radiation optimization: All CT scans at this facility use at least one of these dose optimization techniques: automated exposure control; mA and/or kV adjustment per patient size (includes targeted exams where dose is matched to clinical indication); or iterative reconstruction. COMPARISON: CT HEAD CERV SPINE FACIAL WO 07/17/2020 2:38 PM FINDINGS: Brain: Chronic small vessel ischemic change. There is no evidence of acute infarct, mass, shift of midline or parenchymal hemorrhage. No extra-axial fluid collection. Cerebral ventricles: Moderate dilatation of the ventricular system and sulci diffusely, compatible volume loss. Paranasal sinuses: Mild mucosal thickening in the right frontal sinus. Mastoid air cells: Visualized mastoid air cells are well aerated. Bones/joints: Unremarkable. No acute fracture. Soft tissues: Unremarkable. IMPRESSION: No evidence of acute intracranial hemorrhage. Dictated and Authenticated by: Jolynn France MD. Ordering:EILEEN Cox MD
--- NOTE | 2021-02-15 05:10 | DI.VRAD_ITS ---
PROCEDURE INFORMATION: Exam: XR Left Knee Exam date and time: 02/15/2021 3:14 AM Age: 75 years old Clinical indication: Other: ETOH, knee pain after fall TECHNIQUE: Imaging protocol: XR Left knee. Views: 1 or 2 views. COMPARISON: CT LOWER EXTREMITY LT WO 07/17/2020 3:11 PM FINDINGS: Bones/joints: Question acute fracture of the medial tibial plateau, multiple oblique views can be performed for further evaluation as clinically warranted. acute fracture distal femoral metaphysis. Soft tissues: Normal. Vasculature: Atherosclerotic calcifications. IMPRESSION: 1. Question acute fracture of the medial tibial plateau, multiple oblique views can be performed for further evaluation as clinically warranted. 2. Acute fracture distal femoral metaphysis. Dictated and Authenticated by: Ajith Reyes MD. Ordering:EILEEN Cox MD
--- NOTE | 2021-02-15 05:11 | DI.VRAD_ITS ---
PROCEDURE INFORMATION: Exam: XR Chest Exam date and time: 02/15/2021 3:14 AM Age: 75 years old Clinical indication: Other: Central chest pain after fall TECHNIQUE: Imaging protocol: XR of the chest. Views: 1 view. COMPARISON: CT CHEST WO 01/17/2021 4:42 PM FINDINGS: Lungs: Unremarkable. No consolidation. Pleural spaces: Unremarkable. No pleural effusion. No pneumothorax. Heart/Mediastinum: Unremarkable. No cardiomegaly. Bones/joints: Unremarkable. IMPRESSION: No acute findings. Dictated and Authenticated by: Ajith Reyes MD. Ordering:EILEEN Cox MD
--- NOTE | 2021-02-15 05:12 | DI.VRAD_ITS ---
PROCEDURE INFORMATION: Exam: XR Left Femur Exam date and time: 02/15/2021 3:14 AM Age: 75 years old Clinical indication: Other: ETOH, femur pain after fall TECHNIQUE: Imaging protocol: XR Left femur. Views: 2 views. COMPARISON: CT LOWER EXTREMITY LT WO 07/17/2020 3:11 PM FINDINGS: Bones/joints: Acute fracture distal femoral metaphysis. Unable to exclude fracture of the medial tibial plateau on submitted images. Intramural néstor and fixation screws transfix remote fracture deformity of the proximal femur. Soft tissues: Unremarkable. Vasculature: Atherosclerotic calcifications. IMPRESSION: Acute fracture distal femoral metaphysis. Dictated and Authenticated by: Ajith Reyes MD. Ordering:EILEEN Cox MD
--- NOTE | 2021-02-15 05:13 | DI.VRAD_ITS ---
PROCEDURE INFORMATION: Exam: XR Pelvis Exam date and time: 02/15/2021 3:14 AM Age: 75 years old Clinical indication: Other: ETOH, hip pain after fall TECHNIQUE: Imaging protocol: XR pelvis. Views: 1 or 2 view. COMPARISON: CT CHEST/ABD/PEL W 07/17/2020 2:57 PM FINDINGS: Bones/joints: Intramural néstor and fixation screws transfix chronic fracture deformity left proximal femur. No acute fractures. Soft tissues: Unremarkable. IMPRESSION: No acute findings. Dictated and Authenticated by: Ajith Reyes MD. Ordering:EILEEN Cox MD
--- NOTE | 2021-02-15 05:15 | DI.VRAD_ITS ---
PROCEDURE INFORMATION: Exam: CT Left Lower Extremity Without Contrast; Thigh Exam date and time: 02/15/2021 4:20 AM Age: 75 years old Clinical indication: Other: Distal femur FX TECHNIQUE: Imaging protocol: CT of the Left lower extremity without contrast was performed. Exam focused on the thigh. Radiation optimization: All CT scans at this facility use at least one of these dose optimization techniques: automated exposure control; mA and/or kV adjustment per patient size (includes targeted exams where dose is matched to clinical indication); or iterative reconstruction. COMPARISON: CT LOWER EXTREMITY LT WO 07/17/2020 3:11 PM FINDINGS: Bones/joints: There intramural néstor and fixation screws transfix chronic fracture deformity of the proximal femur. Acute oblique fracture of the distal femoral metadiaphysis. Lipohemarthrosis. Soft tissues: Edema and hemorrhage within the musculature of the distal thigh adjacent to the fracture. IMPRESSION: 1. Acute oblique fracture of the distal femoral metadiaphysis. 2. Lipohemarthrosis. Dictated and Authenticated by: Ajith Reyes MD. Ordering:EILEEN Cox MD
[2021-02-15 06:33] LABS: COVID-19 PCR Negative (Negative)
--- NOTE | 2021-02-15 08:13 | W.PM.PROGNOT ---
Date of Service Date of service: 02/15/21 Time of Service: 08:14 Subjective Subjective Interval history since last seen: Patient was accepted to [facility] hospitalist service based on presumed information that there was orthopedic coverage this weekend. However, it has become known that there is no orthopedist commissions manager over the weekend and the patient was accepted in transfer by [facility] prior to having a chance to be seen by the hospitalist service. Objective Last Vital Signs Temp 36.7 C 02/15/21 06:24 Pulse 67 02/15/21 06:24 Resp 18 02/15/21 06:24 BP 138/85 02/15/21 06:24 Pulse Ox 94 02/15/21 06:24 Laboratory Results - last 24 hr 02/15/21 02/15/21 02/15/21 03:24 03:24 03:24 WBC 8.59 RBC 4.45 Hgb 12.4 L Hct 38.6 L MCV 86.7 MCH 27.9 MCHC 32.1 RDW 15.7 H Plt Count 234 MPV 8.2 Immature Gran % 0.7 Neutrophils % 68.8 Lymphocytes % 17.2 Monocytes % 10.6 Eosinophils % 2.1 Basophils % 0.6 Nucleated RBC % 0 Absolute Neutrophils 5.91 Absolute Lymphocytes 1.48 Absolute Monocytes 0.91 H Absolute Eosinophils 0.18 Absolute Basophils 0.05 Sodium 131 L Potassium 4.3 Chloride 96 L Carbon Dioxide 28.5 Anion Gap 6.5 BUN 11 Creatinine 0.8 Estimated GFR/1.73 m2 >= 60.00 Glucose 114 H Calcium 9.0 Total Bilirubin 0.3 AST 25 ALT 20 Alkaline Phosphatase 92 Total Protein 7.6 Albumin 3.4 Ethyl Alcohol < 3.0 COVID-19 Source SARS-CoV-2 (PCR) 02/15/21 05:40 WBC RBC Hgb Hct MCV MCH MCHC RDW Plt Count MPV Immature Gran % Neutrophils % Lymphocytes % Monocytes % Eosinophils % Basophils % Nucleated RBC % Absolute Neutrophils Absolute Lymphocytes Absolute Monocytes Absolute Eosinophils Absolute Basophils Sodium Potassium Chloride Carbon Dioxide Anion Gap BUN Creatinine Estimated GFR/1.73 m2 Glucose Calcium Total Bilirubin AST ALT Alkaline Phosphatase Total Protein Albumin Ethyl Alcohol COVID-19 Source NASOPHARYX SARS-CoV-2 (PCR) Negative
[2021-02-15] MEDS: Normal Saline Flush 10 ML SYR IVP (09:03)
[2021-02-15] MEDS: MORPHine 4 MG/ML SYR IVP (09:03)
== END 2021-02-15 09:12 | DRG 534 ==
LOC: ER 05:36 → MS 06:09
PROVIDERS: Admitting Provider Family Medicine; Emergency Provider Student in an Organized Health Care Education/Training Program; PCP Nurse Practitioner Family; Visit Provider Family Medicine
DX: S72.492A Other fracture of lower end of left femur, initial encounter for closed fracture (principal); W18.30XA Fall on same level, unspecified, initial encounter; F10.20 Alcohol dependence, uncomplicated; K21.9 Gastro-esophageal reflux disease without esophagitis; I10 Essential (primary) hypertension; E78.00 Pure hypercholesterolemia, unspecified; J44.9 Chronic obstructive pulmonary disease, unspecified; Z20.822 Contact with and (suspected) exposure to COVID-19
CPT/HCPCS: 73552; 80053; 87635; 93005; 96365; 96366; 96375; 99285; 70450; 71045; 72170; 73560; 73700; 80320; 85025; 93010; 99284; J0131; J2270

== ENCOUNTER 2021-02-24 18:24 | Outpatient (REF) | payer MEDICARE, BC, SELFPAY ==
[2021-02-24 20:54] LABS: HCT 29.3 % (40.0-50.0); HGB 9.2 g/dL (13.5-17.5); MCH 28.3 pg (27.0-33.0); MCHC 31.4 % (32.0-36.0); MCV 90.2 fL (80-95); MPV 8.2 fL (8.0-11.0); Platelet Count 449 10^3/uL (130-400); RBC 3.25 10^6/uL (4.36-5.78); RDW 17.3 % (11.8-14.1); RDW-SD 54.4 fL; WBC 9.63 10^3/uL (4.4-10.8)
[2021-02-24 21:18] LABS: ALT 53 U/L (16-63); AST 58 U/L (15-37); Albumin 2.8 g/dL (3.4-5.0); Alkaline Phosphatase 124 U/L (46-116); Anion Gap 9.5 mmol/L (3-11); BUN 14 mg/dL (7-18); Bilirubin, Total 0.7 mg/dL (0.2-1.0); CO2 25.5 mmol/L (21.0-32.0); CREATININE 0.7 mg/dL (0.70-1.30); Calcium 8.4 mg/dL (8.5-10.1); Chloride 98 mmol/L (98-107); Glucose 94 mg/dL (74-106); Sodium 133 mmol/L (136-145); Total Protein 6.3 g/dL (6.4-8.2)
== END 2021-02-24 18:25 | disposition home or self-care (01) ==
LOC: LBN 18:24
PROVIDERS: PCP Nurse Practitioner Family; Visit Provider Nurse Practitioner Family
DX: E87.1 Hypo-osmolality and hyponatremia (principal)
CPT/HCPCS: 80053; 85027; 85025

== ENCOUNTER 2021-02-27 11:12 | Outpatient (CLI) | payer MEDICARE, BC, SELFPAY ==
--- NOTE | 2021-02-27 11:00 | DI.RAD_ITS ---
Exam(s) XR FEMUR LT EXAM: XR FEMUR LT CLINICAL HISTORY: left femur fracture. TECHNIQUE: 2D digital imaging was performed. COMPARISON: CR,XR XR FEMUR LT from 02/15/2021 FINDINGS: There has been interval surgery with realignment of the fracture fragments the mid-distal left femur and placement of a long lateral fixation plate extending from the immediate subtrochanteric region do wn to the level of the femoral condyles, secured by multiple horizontal screws, the most superior scr ew being at the subtrochanteric level. There is also an associated circumferential wire around the f emur approximately 2.3 cm above the most inferior aspect of the left hip securing néstor. There has been satisfactory realignment of the fracture fragments. Hardware appears intact. No loos ening. No radiographic evidence of osteomyelitis. The IMPRESSION: DATA REPOSITORY: RADIATION DOSE DELIVERED:
== END 2021-02-27 11:13 | disposition home or self-care (01) ==
LOC: DIORS 11:12
PROVIDERS: PCP Nurse Practitioner Family; Referring Provider Nurse Practitioner Family; Visit Provider Student in an Organized Health Care Education/Training Program
DX: S72.92XA Unspecified fracture of left femur, initial encounter for closed fracture (principal); S72.492A Other fracture of lower end of left femur, initial encounter for closed fracture; W19.XXXA Unspecified fall, initial encounter; J44.9 Chronic obstructive pulmonary disease, unspecified; I10 Essential (primary) hypertension
CPT/HCPCS: 73552; 99214

== ENCOUNTER 2021-03-31 14:37 | Outpatient (CLI) | payer MEDICARE, BC, SELFPAY ==
--- NOTE | 2021-03-31 13:00 | DI.RAD_ITS ---
Exam(s) XR FEMUR LT EXAM: XR FEMUR LT CLINICAL HISTORY: left femur fracture. TECHNIQUE: 2D digital imaging was performed. COMPARISON: CR XR FEMUR LT from 02/27/2021 FINDINGS: Again noted is the extensive hardware in the femur and hip including lag nail across the healed inter trochanteric fracture site and a long lateral fixation plate extending from the immediate subtrochant veronika region down to the lateral femoral condyle secured by multiple screws, this transfixing the comm inuted oblique fracture site in the mid-distal 3rd region of the femur and there is a circumferential fixation wires at this level again noted as were is another higher up. Fracture lines are still vis ible but relatively stable in position. No radiographic evidence of osteomyelitis. IMPRESSION: DATA REPOSITORY: RADIATION DOSE DELIVERED:
== END 2021-03-31 14:38 | disposition home or self-care (01) ==
LOC: DIORS 14:38
PROVIDERS: PCP Nurse Practitioner Family; Referring Provider Nurse Practitioner Family; Visit Provider Student in an Organized Health Care Education/Training Program
DX: S72.92XD Unspecified fracture of left femur, subsequent encounter for closed fracture with routine healing (principal); M77.8 Other enthesopathies, not elsewhere classified; J44.9 Chronic obstructive pulmonary disease, unspecified; X58.XXXD Exposure to other specified factors, subsequent encounter; I10 Essential (primary) hypertension
CPT/HCPCS: 73552; 99213

== ENCOUNTER 2021-05-19 16:26 | Outpatient (CLI) | payer MEDICARE, BC, SELFPAY ==
--- NOTE | 2021-05-19 13:15 | DI.RAD_ITS ---
Exam(s) XR WRIST RT COMPLETE EXAM: XR WRIST RT COMPLETE CLINICAL HISTORY: f/u R wrist pain s/p fall. TECHNIQUE: 2D digital imaging was performed. COMPARISON: No exams were available for comparison FINDINGS: BONES: No acute fracture is present. No bony destructive lesion is seen. JOINTS: The carpal bones are normally aligned. There are severe degenerative changes at the distal ra dial ulnar joint. Severe degenerative changes are also present at the 1st carpal metacarpal joint. There are adjacent bony fragments and prominent periarticular spurring. SOFT TISSUE: Normal. 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 DATA REPOSITORY: RADIATION DOSE DELIVERED:
--- NOTE | 2021-05-19 13:15 | DI.RAD_ITS ---
Exam(s) XR FEMUR LT EXAM: XR FEMUR LT INDICATION: f/u left femur fracture. COMPARISON: No exams were available for comparison TECHNIQUE: 2D digital imaging was performed. FINDINGS: Has been no change in hardware or fracture alignment. There has been some interval increase in heali ng of the distal femoral fracture when compared to the prior exam. No. DATA REPOSITORY: RADIATION DOSE DELIVERED:
== END 2021-05-19 16:27 | disposition home or self-care (01) ==
LOC: DIORS 16:26
PROVIDERS: PCP Nurse Practitioner Family; Referring Provider Nurse Practitioner Family; Visit Provider Student in an Organized Health Care Education/Training Program
DX: S72.92XD Unspecified fracture of left femur, subsequent encounter for closed fracture with routine healing (principal); M77.8 Other enthesopathies, not elsewhere classified; X58.XXXD Exposure to other specified factors, subsequent encounter; M25.531 Pain in right wrist
CPT/HCPCS: 73552; 99212; 73110

== ENCOUNTER 2021-06-24 00:48 | Outpatient (CLI) | payer MEDICARE, BC, SELFPAY ==
--- NOTE | 2021-06-24 07:00 | DI.US_ITS ---
Exam(s) US ABDOMEN EXAM: US ABDOMEN CLINICAL HISTORY: screening for liver cancer,HEPATIC CIRRHOSIS, F/U,K70.30 TECHNIQUE: Ultrasound abdomen performed using standard protocol. COMPARISON: US US ABDOMEN from 10/09/2020 FINDINGS: ABDOMINAL AORTA AND IVC: Visualized portions normal caliber. PANCREAS: Completely obscured by overlying bowel. LIVER: Increased echogenicity diffusely consistent with fatty infiltration. No hepatic mass is seen. The liver is enlarged measuring 20.4 cm. Hepatopedal flow in the Portal Vein. GALLBLADDER: No evidence of cholelithiasis. No evidence of wall thickening. No pericholecystic fluid identified. BILIARY SYSTEM: Common bile duct measures 1 cm. This is unchanged compared to the prior examination from 10/09/2020. KAPADIA'S SIGN: Negative. KIDNEYS: Kidneys are symmetric in size. No evidence of renal calculi. No evidence of hydronephrosis. No renal mass or cyst identified. SPLEEN: Completely obscured by overlying bowel. ASCITES: None seen. IMPRESSION: 1. A hepatic steatosis and hepatomegaly. No sonographic evidence of a hepatic mass. 2. Stable 1 cm common bile duct. No choledocholithiasis is seen. Further evaluation with a CT abdom en and pelvis should be considered. DATA REPOSITORY:
== END 2021-06-24 01:08 ==
PROVIDERS: PCP Nurse Practitioner Family; Visit Provider Nurse Practitioner Family
DX: K70.30 Alcoholic cirrhosis of liver without ascites (principal); K76.0 Fatty (change of) liver, not elsewhere classified; R16.0 Hepatomegaly, not elsewhere classified
CPT/HCPCS: 76700

== ENCOUNTER 2021-07-28 01:45 | Outpatient (CLI) | payer MEDICARE, BC, SELFPAY ==
--- NOTE | 2021-07-28 09:30 | DI.CT_ITS ---
Exam(s) CT CHEST WO EXAM: CT CHEST WO CLINICAL HISTORY: 6 mo f/u of lung nodules, r91.8,r07.9, chest pain,emphysema lung,j43.9. TECHNIQUE: Multi planar reconstructions were performed. CONTRAST MATERIAL: None COMPARISON: CT CT CHEST WO from 01/17/2021 FINDINGS: CHEST: LUNGS: COPD emphysematous changes are again noted. Prominent scarring in both lung apices appears un changed. No associated rib destruction. There is also an unchanged 3 millimeter nodule the left lower lobe (series 2/image 36). In the lateral basal segment of the right lower lobe there is some pleural based mild infiltrate agai n noted, unchanged. Also some platelike atelectasis above this level in the right lower lobe is uncha nged. There are no new focal pulmonary findings. There is some mucus noted on the dependent wall of the tra luis. MEDIASTINUM: There is no obvious hilar nor mediastinal adenopathy. Visualized thyroid unremarkable.No obvious axillary adenopathy. Moderate size retrocardiac hiatal hernia noted CARDIAC: Heart size is normal. There is no pericardial effusion.Caliber of the thoracic aorta is wit hin normal limits. VISUALIZED UPPER ABDOMEN:Somewhat cirrhotic appearing liver. No ascites. No adrenal mass is evident OSSEOUS: No significant osseous lesions.. IMPRESSION: 1. No significant change compared to the prior CT scan January 2021. Findings in both lung apices most p robably represent scarring. Other findings remain stable. No new significant pulmonary findings and n o pleural effusions nor intrathoracic adenopathy evident. 2. There is a moderate size hiatal hernia again evident. RADIATION DOSE DELIVERED: 399.71mGy.cm Total DLP DATA REPOSITORY: All CT scans at this facility are submitted to the National Radiology Data Registry (NRDR) Dose Index Registry (DIR) with the [employer] ([employer]). RADIATION OPTIMIZATION: All CT scans at this facility use at least one of these dose optimization te chniques: automated exposure control; mA and/or kV adjustment per patient size (includes targeted exa ms where dose is matched to clinical indication); or iterative reconstruction.
== END 2021-07-28 02:05 ==
PROVIDERS: PCP Nurse Practitioner Family; Visit Provider Nurse Practitioner
DX: J44.9 Chronic obstructive pulmonary disease, unspecified; R07.9 Chest pain, unspecified; R91.8 Other nonspecific abnormal finding of lung field; K44.9 Diaphragmatic hernia without obstruction or gangrene
CPT/HCPCS: 71250

== ENCOUNTER 2021-10-12 11:11 | Emergency (ER) | payer MEDICARE, BC, SELFPAY ==
[2021-10-12 11:14] VITALS: BP 155/80; PULSE 80; RESP 18; TEMP 37; O2SAT 96
--- NOTE | 2021-10-12 11:14 | ED.GENADUL_ITS ---
Discharge Plan Disposition Patient Disposition: HOME Condition: Stable Discharge Details Clinical Impression: Skin tear of left hand without complication, Abrasion of head Primary Care Provider: Stephie Jones ED Provider: Corine Dill Home Meds and New Rx's Prescriptions: Continued budesonide-formoterol [Symbicort] 160-4.5 mcg/actuation HFA aerosol inhaler 2 puff inhalation BID Qty: 3 3RF acetaminophen 500 mg tablet 1,000 mg PO BID PRN0RF Metamucil 660 GM powder 1 - 2 tbs PO DAILY 0RF Label Comments: 02/24/18-Jordi LOWERY, [facility]-GASTRO- 1/2 TSP DAILY X1 WK, INCR TO 1 TSP DAILY THEN INCR SLOWLY TO DOSE LISTED-LH furosemide [Lasix] 20 mg tablet 20 mg PO QAM Qty: 90 3RF thiamine mononitrate (vit B1) [Vitamin B-1 (mononitrate)] 100 mg tablet 100 mg PO DAILY Qty: 90 3RF spironolactone 50 mg tablet 100 mg PO DAILY Qty: 180 3RF atorvastatin 40 mg tablet 40 mg PO DAILY Qty: 90 3RF cholecalciferol (vitamin D3) 25 mcg (1,000 unit) tablet 50 mcg PO DAILY 0RF methocarbamol 500 mg tablet 500 mg PO Q6H PRN (Reason: muscle spasm) 0RF carvedilol 6.25 mg tablet 6.25 mg PO BID Qty: 180 3RF Rx Instructions: Administer with food pantoprazole 40 mg tablet,delayed release (DR/EC) See Rx Instructions .ROUTE .COMPLEX Qty: 90 0RF Dose Instruction: TAKE 1 TABLET BY MOUTH EVERY MORNING 30 TO 60 MINUTES BEFORE FIRST MEAL OF THE DAY ON AN EMPTY STOMACH Rx Instructions: TAKE 1 TABLET BY MOUTH EVERY MORNING 30 TO 60 MINUTES BEFORE FIRST MEAL OF THE DAY ON AN EMPTY STOMACH cyanocobalamin (vitamin B-12) [Vitamin B-12] 500 mcg Tablet 1,000 mcg PO DAILY Qty: 0 0RF Discharge Instructions Instructions: Head Injury (ED), Skin Tear (ED) Additional Instructions: Your imaging today is reassuring and shows no evidence of acute concerning or significant findings. Keep your left hand wrapped in the outer gauze dressing for the next 2 days. You can remove the outer gauze dressing if it becomes wet or contaminated. Do n ot remove the steri strips that adhere directly to your skin to allow them to dry up and fall off naturally once the wound begins to heal. Follow-up with your primary care doctor in 1 week. Return to the emergency department with any worsening or new concerning symptoms. Discharge Data Discharge Date/Time-TO BE ENTERED AT DEPARTURE: 10/12/21 12:43 Discharge Physician: Corine Dill Medical Decision Making 75yo M w a history of chronic alcohol abuse with history of Smalls's esophagus, esophageal varices, GERD, hypertension, hyperlipidemia, history of falls w/ periprosthetic hip fracture and C3 fracture presents for bleeding left hand wound. Tetanus up-to-date 2019. Patient fell out of a computer chair while he was asleep hitting his hand on the rug and striking his head on the computer desk. Denies LOC, vomiting, headache or neck pain. Considering patient's age, will obtain a CT head and cervical spine. Laceration on the hand is consistent with a large skin tear and would not be amenable to suturing. Nursing will irrigate and place Steri-Strips, Tegaderm. Will also obtain a left hand x-ray. Imaging reviewed and negative for acute findings. Patient advised to keep outer dressing in place for the next 2 days unless it becomes wet or contaminated. Advised not to remove Steri-Strips until they dry up and fall off naturally as wound begins to heal. We will hold on antibiotics at this time and recommend follow-up with the primary care doctor this week for reevaluation. Usual and customary return precautions given prior to discharge. Medical Records Medical records reviewed: Yes I reviewed the patient's medical records. Imaging Data Radiologic Study: Radiologist's impression: XR HAND LT COMPLETE CLINICAL HISTORY: ? fall onto L hand, large skin tear, r/o fx.? TECHNIQUE:? 2D digital imaging was performed of the left hand.? Three views were obtained.? AP, lateral and oblique views were obtained. COMPARISON:? No exams were available for comparison FINDINGS: BONES: No acute fracture is present. No bony destructive lesion is seen. The bones are osteopenic. JOINTS: No dislocation present. There are degenerative changes seen in the hand and wrist.? They are most marked at the 1st CMC joint. SOFT TISSUE: Normal. IMPRESSION: No acute fracture or dislocation.? CT HEAD ? CERVICAL SPINE WO CLINICAL HISTORY: ? s/p head injury, r/o acute injury. ? TECHNIQUE:? Imaging Protocol: Axial computed tomography images with coronal and sagittal reformatted images were created and reviewed COMPARISON:? CT CT HEAD WO from 02/15/2021 FINDINGS: CT Head: Ventricles and Extra axial spaces: Normal in size and morphology for the patient's age. Hemorrhage: None. Cerebral parenchyma: No acute territorial infarct.? There are areas of decreased attenuation in the white matter consistent with small vessel ischemic disease.? Midline shift: None. Brainstem/Cerebellum: Normal. Calvarium: Normal. Visualized Paranasal sinuses/Mastoids: There is mild mucosal thickening in the right frontal sinus.? The remaining visualized paranasal sinuses and mastoid air cells are clear.? Soft Tissues: Unremarkable. CT Cervical Spine: Bones: No acute fracture or subluxation. Degenerative changes are present throughout the cervical spine.? The bones appear osteopenic. Soft Tissues: Unremarkable. Lung Apices: Emphysematous changes are seen in the lung apices.? Stable pleural parenchymal scarring is seen in the right lung apex.? IMPRESSION: 1. No acute intracranial process.? 2. No acute fracture or subluxation in the cervical spine. HPI General Mode of arrival: wheelchair . Date/Time Provider Initiated Documentation: 10/12/21 11:11 . Limitations to Documentation: no limitations . Information obtained by: patient . HPI Narrative: Patient is a 75yo M w a history of chronic alcohol abuse with history of Smalls's esophagus, esophageal varices, GERD, hypertension, hyperlipidemia, history of falls w/ periprosthetic hip fracture and C3 fracture presents for bleeding left hand wound. Patient states he fell asleep at the computer today and rolled out of his computer chair hitting his hand on the rug on the ground. He states he may have landed on the hand but thinks the hand was mainly injured by scraping against the rug. He states he also hit the top of his head on the computer desk causing a scrape on the top of his head. He denies any LOC, headache, vomiting or neck pain after his head injury. He denies any other injuries. Related Data Home Medications Medication Instructions Recorded Confirmed psyllium husk 3.4 gram/5.4 gram 1 - 2 tbs PO DAILY 02/25/18 10/12/21 oral powder (Metamucil) cyanocobalamin (vitamin B-12) 500 1,000 mcg PO DAILY #0 tab 06/18/20 10/12/21 mcg tablet (Vitamin B-12) furosemide 20 mg tablet (Lasix) 20 mg PO QAM #90 tab 08/26/20 10/12/21 spironolactone 50 mg tablet 100 mg PO DAILY #180 tab 08/26/20 10/12/21 thiamine mononitrate (vit B1) 100 100 mg PO DAILY #90 tab 08/26/20 10/12/21 mg tablet (Vitamin B-1 (mononitrate)) budesonide-formoterol HFA 160 2 puff INHALATION BID #3 unit 11/14/20 10/12/21 mcg-4.5 mcg/actuation aerosol inhaler (Symbicort) atorvastatin 40 mg tablet 40 mg PO DAILY #90 tab-cap 02/10/21 10/12/21 acetaminophen 500 mg tablet 1,000 mg PO BID PRN tab 04/04/21 10/12/21 cholecalciferol (vitamin D3) 25 50 mcg PO DAILY tab 04/04/21 10/12/21 mcg (1,000 unit) tablet methocarbamol 500 mg tablet 500 mg PO Q6H PRN tab 04/04/21 10/12/21 carvedilol 6.25 mg tablet 6.25 mg PO BID #180 tab 09/15/21 10/12/21 pantoprazole 40 mg tablet,delayed See Rx Instructions .ROUTE 10/09/21 10/12/21 release .COMPLEX #90 tab Previous Rx's Medication Instructions Recorded cyanocobalamin (vitamin B-12) 500 1,000 mcg PO DAILY #0 tab 06/18/20 mcg tablet (Vitamin B-12) furosemide 20 mg tablet (Lasix) 20 mg PO QAM #90 tab 08/26/20 spironolactone 50 mg tablet 100 mg PO DAILY #180 tab 08/26/20 thiamine mononitrate (vit B1) 100 100 mg PO DAILY #90 tab 08/26/20 mg tablet (Vitamin B-1 (mononitrate)) budesonide-formoterol HFA 160 2 puff INHALATION BID #3 unit 11/14/20 mcg-4.5 mcg/actuation aerosol inhaler (Symbicort) atorvastatin 40 mg tablet 40 mg PO DAILY #90 tab-cap 02/10/21 carvedilol 6.25 mg tablet 6.25 mg PO BID #180 tab 09/15/21 pantoprazole 40 mg tablet,delayed See Rx Instructions .ROUTE 10/09/21 release .COMPLEX #90 tab Allergies Allergy/AdvReac Type Severity Reaction Status Date / Time No Known Allergies Allergy Verified 10/12/21 11:17 General JAMEE: 3 Review of Systems All systems reviewed & are unremarkable except as noted in HPI and below Constitutional Constitutional: Reports as per HPI, Denies chills and Denies fever(s) Eyes Eyes: Denies blurry vision ENT Ears, Nose, Mouth, and Throat: Denies dizziness, Denies sore throat and Denies throat swelling Cardiovascular Cardiovascular: Denies chest pain and Denies dyspnea Respiratory Respiratory: Denies cough and Denies dyspnea Gastrointestinal Gastrointestinal: Denies abdominal pain, Denies diarrhea and Denies vomiting Genitourinary Genitourinary: Denies hematuria and Denies dysuria Musculoskeletal Musculoskeletal: Denies back pain and Denies numbness Comments: Wound to left hand Integumentary/Breasts Skin/Breast: Denies lesions and Denies rash Neurologic Neurologic: Denies dizziness, Denies localized weakness and Denies numbness Allergic/Immunologic Allergic/Immunologic: Denies throat swelling PFSH All Active Problems (Updated 10/12/21 @ 12:34 by Corine Dill DO) Skin tear of left hand without complication (Acute) Abrasion of head (Acute) Edema, lower extremity (Acute) At risk for falls (Acute) Inflamed seborrheic keratosis (Acute) Right wrist tendonitis (Acute) Femur fracture, left (Acute ~02/2021) Hiatal hernia (Chronic) Noted on 01/17/2021 CT Lung nodules (Acute) Traumatic chest pain (Acute) Other bursitis of elbow, right elbow (Acute 01/02/21) Physician orders for life-sustaining treatment (POLST) form indicates patient wish for [id number] status (Chronic) Signed with Dr. Oakley June 2020; DNR/DNI Portal hypertension (Acute) Anemia (Chronic) Abscess of lung without pneumonia (Acute) 09/06/20 [facility] [place] lower lobe abscess. CXR due again 10/07/20 Frailty syndrome in geriatric patient (Chronic) Hematuria (Acute) Palliative care patient (Acute) Hyponatremia (Acute) Dysphagia (Chronic) 10/17/2018 EGD ([facility]): Smalls's & interval resolution of esophageal varices seen on previous EGD (see Smalls's dx comments for details); 06/06/2019 Bar ium Swallow: some dysmotility & aspiration --> referred to Speech Therapy 04/12/20 [facility] Esophageal Manometry; 05/17/2020 EGD: Grade I esophageal varices, duodenal erosions w/o bleeding, no obstructive cause for dysphagia 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 L; then occurred on R side and now chronic Smalls's esophagus (Chronic) 10/17/2018 EGD ([facility]): esophageal mucosal changes classified as Smalls's stage C0-M1 per Ashby criteria (also showed resolution of esophageal varices on carvedilol 6.25 mg BID) Tobacco use disorder (Chronic) 1.5- 2 PPD not interested in quitting 08/2020 Restless leg syndrome (Chronic) Alcohol use disorder (Chronic) not interested in quitting 08/2020 approx 48-60 oz of beer + hard liquor daily Sigmoid diverticulosis (Chronic 02/01/18) 02/01/2018 colonoscopy Incisional hernia, without obstruction or gangrene (Chronic 01/17/18) [facility] GI consult Hypertension (Chronic 08/01/14) Hyperlipidemia (Chronic 03/24/13) 11/2018 labs: good response to high potency statin, continue Hepatic cirrhosis (Chronic 01/14/18) [facility] GI 02/24/2018 Fibroscan: stage 4 liver fibrosis, consistent with cirrhosis with possible portal HTN 06/22/2018 EGD (Dr. 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 Geoffrey Dumont Alcohol use disorder not interested in quitting 08/2020 approx 48-60 oz of beer + hard liquor daily Aspiration pneumonia due to regurgitated food Smalls's esophagus 10/17/2018 EGD ([facility]): esophageal mucosal changes classified as Smalls's stage C0-M1 per Ashby criteria (also showed resolution of esophageal varices on carvedilol 6.25 mg BID) Basal cell carcinoma (BCC) Face Bilateral lower extremity edema (01/14/18) Related to cirrhosis BPH w urinary obs/LUTS (03/10/13) C3 cervical fracture Al hemangioma (02/18/17) Dr. Geoffrey Dumont Chronic obstructive lung disease (03/15/13) 09/06/2020 PFTs ([facility]): moderate-severe (FEV1 50-59%) Closed fracture of left orbit Dysphagia 10/17/2018 EGD ([facility]): Smalls's & interval resolution of esophageal varices seen on previous EGD (see Smalls's dx comments for details); 06/06/2019 Barium Swallow: some dysmotility & aspiration --> referred to Speech Therapy 04/12/20 [facility] Esophageal Manometry; 05/17/2020 EGD: Grade I esophageal varices, duodenal erosions w/o bleeding, no obstructive cause for dysphagia Esophageal varices 06/22/2017 EGD (Dr. Cheney): grade 1 w/ stigmata of bleeding; 10/17/2018 EGD ([facility]): no evidence of esophageal or gastric varices on carvedilol 6.25 mg BID Family history of malignant melanoma ov note dated 05/10/20-Dr. Hale Femur fracture, left (~02/2021) Fracture of nasal bone Frailty syndrome in geriatric patient Frequent falls Gastroesophageal reflux disease (03/15/13) HH surgery 08/1990 GERD (gastroesophageal reflux disease) Hepatic cirrhosis (01/14/18) [facility] GI 02/24/2018 Fibroscan: stage 4 liver fibrosis, consistent with cirrhosis with possible portal HTN 06/22/2018 EGD (Dr. Cheney): confirmed portal HTN with grade 1 esophageal varices Sodium restriction 2000 mg for ascites control Hiatal hernia Noted on 01/17/2021 CT History of basal cell carcinoma Hydrocele of testis (03/24/13) S/p repair L; then occurred on R side and now chronic Hyperlipidemia (03/24/13) 11/2018 labs: good response to high potency statin, continue Hyperlipidemia Hypertension (08/01/14) Incisional hernia, without obstruction or gangrene (01/17/18) [facility] GI consult Incontinence of feces Intertrochanteric fracture of left femur Malignant neoplasm of prostate Other bursitis of elbow, right elbow (01/02/21) Periprosthetic fracture around internal prosthetic left hip joint Rectosphincteric dyssynergia Manifested as fecal incontinence and constipation; resolved with daily fiber supplementation Restless leg syndrome Right wrist tendonitis Rotator cuff syndrome (03/24/13) S/p B/L repair Seborrheic keratosis (02/18/17) Dr. Hale Derm Sigmoid diverticulosis (02/01/18) 02/01/2018 colonoscopy Squamous cell carcinoma Face Tobacco use disorder 1.5- 2 PPD not interested in quitting 08/2020 Surgical History H/O colonoscopy 05/17/20 at [facility] - no need for further to have any further colonscopy per report H/O endoscopy 05/17/20 [facility] History of esophagogastroduodenoscopy (EGD) (06/22/18) dr cheney, grade I esophageal varices Left shoulder (09/24/07) Marci Fundoplication (03/24/85) Prostatectomy (~05/2007) Repair of incision from Marci fundoplication (03/24/87) right shoulder (03/24/00) S/P skin biopsy (~09/2020) R inguinal fold on margins of scrotum-Dr Hale Family History Mother , resp failure due to COPD age 69 COPD (chronic obstructive pulmonary disease) Smoker Father , widespread cancer age 73 Personal history of malignant neoplasm prostate Malignant melanoma Smoker Prostate cancer COPD (chronic obstructive pulmonary disease) Son No problems noted. Daughter No problems noted. Brother , age 68 from COPD COPD (chronic obstructive pulmonary disease) Smoker Sister , age 62 from pancreatic cancer Smoker Pancreatic cancer Social History Smoking/Tobacco Use Status: Current every day Tobacco Type: cigarettes Tobacco: How many years used: 60 Quit status: not considering quitting Second Hand Exposure: No Counseling given: counseling >3 minutes Smoking risk assessment performed?: Yes Alcohol Intake: current Alcohol Intake frequency: 3 or more drinks per day Alc ohol type: beer and hard liquor Counseling provided: other Drug use: Never Substance use type: does not use Counseling provided: provider counseling Caregiver/Support person: No Household members: none Housing: house Number of Children: 2 number of grandchildren: 3 Communication Needs: Corrective Lenses Education Level: high school Do you need help understanding health information?: Often 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; 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 Do you think of yourself as: straight/heterosexual Current gender identity: male What is your relationship status?: How often do you talk on the phone with friends or family?: once per week How often do you get together with friends or relatives?: once per week Panel score (0-1 are the most socially isolated patients): 0 What type of physical activity do you participate in: none Special tg needs: No Agree to transfusion: No Seatbelt use: always Water heater temp set <120 deg: Yes Working smoke detector in home: Yes Fire extinguisher in home: Yes Carbon monox detector in home: Yes Firearms in home: No Do you feel safe at home: Yes Do you feel safe in your relationship?: Yes Exam Const General: cooperative, no acute distress and ill appearing chronically Orientation: alert, awake and oriented x3 [facility] Head: no palpable skull fracture Head images: 2 1. 2 mm superficial abrasion to the right side of the forehead near the hairline. Bleeding controlled. No obvious foreign bodies. No open or gaping wounds. Ears: hearing grossly normal bilaterally, external ears normal and TM's normal bilaterally General nose exam: external nose normal Mouth: oral mucosae normal Eyes General: appearance normal, both eyes and all related structures Neck Neck: normal visual inspection Resp Effort & Inspection: normal respiratory effort and able to speak in complete sentences Cardio Rate: regular rate Skin General skin exam: no rashes or lesions noted Neuro General: patient alert, patient awake, patient oriented x3, moves all extremities, no meningeal signs and no focal motor deficits Motor: muscle tone normal throughout Extrem General: edema Laterality: bilateral (chronic appearing, edematous, venous stasis skin changes, purple/erythematous, scaly) Psych Appearance: grossly normal Affect: normal affect
--- NOTE | 2021-10-12 11:15 | DI.RAD_ITS ---
Exam(s) XR HAND LT COMPLETE EXAM: XR HAND LT COMPLETE CLINICAL HISTORY: fall onto L hand, large skin tear, r/o fx. TECHNIQUE: 2D digital imaging was performed of the left hand. Three views were obtained. AP, later al and oblique views were obtained. COMPARISON: No exams were available for comparison FINDINGS: BONES: No acute fracture is present. No bony destructive lesion is seen. The bones are osteopenic. JOINTS: No dislocation present. There are degenerative changes seen in the hand and wrist. They are most marked at the 1st CMC joint. SOFT TISSUE: Normal. IMPRESSION: No acute fracture or dislocation. DATA REPOSITORY: RADIATION DOSE DELIVERED:
[2021-10-12] MEDS: Acetaminophen 325 MG TAB 650 MG PO (11:35)
--- NOTE | 2021-10-12 12:11 | DI.VRAD_ITS ---
PROCEDURE INFORMATION: Exam: XR Left Hand Exam date and time: 10/12/2021 11:30 AM Age: 75 years old Clinical indication: Other: Fall onto left hand , large skin tear, R/O FX TECHNIQUE: Imaging protocol: XR Left hand. Views: 3 or more views. COMPARISON: US EXTREMITY VENOUS BI 07/21/2020 3:50 PM FINDINGS: Bones/joints: Bony structures are osteopenic. Advanced degenerative changes are seen at the basal joint of the thumb and the STT joint. No definite acute fracture is identified. There is multilevel joint space narrowing most prominent in the DIP joints likely representing osteoarthritis. No definite periarticular erosions are identified. Soft tissues: There is mild soft tissue swelling particularly adjacent to the 2nd DIP joint. There is calcification at the dorsal aspect of the joint space. No radiopaque foreign object is identified. IMPRESSION: Osteopenia. Degenerative changes. No acute fracture. Dictated and Authenticated by: Nataliia Bates MD. Ordering:BJ Pool MD
--- NOTE | 2021-10-12 12:12 | DI.CT_ITS ---
Exam(s) CT HEAD CERVICAL SPINE WO EXAM: CT HEAD CERVICAL SPINE WO CLINICAL HISTORY: s/p head injury, r/o acute injury. TECHNIQUE: Imaging Protocol: Axial computed tomography images with coronal and sagittal reformatted images were created and reviewed COMPARISON: CT CT HEAD WO from 02/15/2021 FINDINGS: CT Head: Ventricles and Extra axial spaces: Normal in size and morphology for the patient's age. Hemorrhage: None. Cerebral parenchyma: No acute territorial infarct. There are areas of decreased attenuation in the w will matter consistent with small vessel ischemic disease. Midline shift: None. Brainstem/Cerebellum: Normal. Calvarium: Normal. Visualized Paranasal sinuses/Mastoids: There is mild mucosal thickening in the right frontal sinus. The remaining visualized paranasal sinuses and mastoid air cells are clear. Soft Tissues: Unremarkable. CT Cervical Spine: Bones: No acute fracture or subluxation. Degenerative changes are present throughout the cervical spi ne. The bones appear osteopenic. Soft Tissues: Unremarkable. Lung Apices: Emphysematous changes are seen in the lung apices. Stable pleural parenchymal scarring is seen in the right lung apex. IMPRESSION: 1. No acute intracranial process. 2. No acute fracture or subluxation in the cervical spine. RADIATION DOSE DELIVERED: 1,228.55mGy.cm Total DLP DATA REPOSITORY: All CT scans at this facility are submitted to the National Radiology Data Registry (NRDR) Dose Index Registry (DIR) with the [employer] (ACR). RADIATION OPTIMIZATION: All CT scans at this facility use at least one of these dose optimization te chniques: automated exposure control; mA and/or kV adjustment per patient size (includes targeted exa ms where dose is matched to clinical indication); or iterative reconstruction.
--- NOTE | 2021-10-12 12:24 | DI.VRAD_ITS ---
PROCEDURE INFORMATION: Exam: CT Head Without Contrast Exam date and time: 10/12/2021 11:54 AM Age: 75 years old Clinical indication: Injury or trauma; Concussion/head injury; Consciousness not specified; Patient HX: Fall/head injury TECHNIQUE: Imaging protocol: Computed tomography of the head without contrast. Radiation optimization: All CT scans at this facility use at least one of these dose optimization techniques: automated exposure control; mA and/or kV adjustment per patient size (includes targeted exams where dose is matched to clinical indication); or iterative reconstruction. COMPARISON: CT HEAD WO 02/15/2021 4:21 AM FINDINGS: Brain: There is mild ventricular, cortical sulcal prominence consistent with central, cortical atrophy in the patient's age. There is no evidence of acute intracranial hemorrhage. There is no evidence of mass or shift. There is no evidence of an acute cortical or major vascular territory infarct. There is minimal low attenuation involving the periventricular white matter particularly in the left frontal lobe, nonspecific but likely small vessel change/microangiopathy. No abnormal extra-axial collections are identified. Cerebral ventricles: Mild ventricular prominence likely is related to central atrophy. There is no significant hydrocephalus. Paranasal sinuses: Minimal mucoperiosteal thickening/retention cyst in the right frontal sinus. Mild leftward bowing of the nasal septum. No significant sinus opacification or fluid level Mastoid air cells: Visualized mastoid air cells are well aerated. Vasculature: Intracranial vascular calcification is noted. There is no hyperdense intravascular thrombus. Bones/joints: Unremarkable. No acute fracture. Soft tissues: Unremarkable. IMPRESSION: No acute intracranial findings PROCEDURE INFORMATION: Exam: CT Cervical Spine Without Contrast Exam date and time: 10/12/2021 11:54 AM Age: 75 years old Clinical indication: Injury or trauma; Concussion/head injury; Consciousness not specified; Patient HX: Fall/head injury TECHNIQUE: Imaging protocol: Computed tomography images of the cervical spine without contrast. Radiation optimization: All CT scans at this facility use at least one of these dose optimization techniques: automated exposure control; mA and/or kV adjustment per patient size (includes targeted exams where dose is matched to clinical indication); or iterative reconstruction. COMPARISON: CT HEAD WO 02/15/2021 4:[address] from 2019 FINDINGS: Bones/joints: Alignment is unremarkable. The bony structures are osteopenic. There is no evidence of an acute fracture in the cervical spine. There is no decrease of vertebral body height. There is no acute or destructive bony abnormality identified. Discs/Spinal canal/Neural foramina: There is disc space narrowing in the cervical spine. There are disc osteophyte complexes, spondylitic changes of the endplates, facet and mild uncovertebral hypertrophy. However there is no high-grade stenosis or cord compression identified. There is mild foraminal narrowing noted. Lungs: Images through the lung apices demonstrate emphysematous changes with apical bullae. There is pleuroparenchymal scarring. There is a somewhat irregular density noted at the right lung apex measuring approximately 2.3 cm in maximum diameter on coronal reformatted image 23. This contains calcifications and likely is related to pleuroparenchymal scarring , it was also seen on the patient's prior examination from 2019. Soft tissues: There is no evidence of a discrete soft tissue mass in the neck. Other findings: Exam mildly degraded by patient motion IMPRESSION: 1. No acute fracture in the cervical spine 2. Emphysematous changes at the lung apices. Nodular pleural based density at the right lung apex likely is related to pleuroparenchymal scarring and was also previously identified. Dictated and Authenticated by: Nataliia Bates MD. Ordering:BJ Pool MD
[2021-10-12 12:37] VITALS: BP 123/74; PULSE 75; RESP 18; TEMP 36.9; O2SAT 98
== END 2021-10-12 12:43 | disposition home or self-care (01) ==
PROVIDERS: Emergency Provider Physician Assistant; PCP Nurse Practitioner Family
DX: S61.412A Laceration without foreign body of left hand, initial encounter (principal); S00.81XA Abrasion of other part of head, initial encounter; W07.XXXA Fall from chair, initial encounter
CPT/HCPCS: 99284; 70450; 72125; 73130; 99283

== ENCOUNTER 2021-11-20 01:00 | Outpatient (CLI) | payer MEDICARE, BC, SELFPAY ==
--- NOTE | 2021-11-20 | DI.US_ITS ---
Exam(s) US BREAST LT COMPLETE US BREAST RT COMPLETE MG MAMMO DIAGNOSTIC BI EXAM: MG MAMMO DIAGNOSTIC BI bilateral U/S breast complete CLINICAL HISTORY: left breast mass,n63.0. TECHNIQUE: Craniocaudal and mediolateral oblique Full Field Digital Mammography views with Computer Aided Diagnosis followed by Tomosynthesis and bilat breast ultrasound. COMPARISON: No exams were available for comparison FINDINGS: Mammography/Tomosynthesis: Masses/Architectural Distortion: Soft tissue seen in the retroareolar regions bilaterally, left great er than right. No discrete mass is appreciated. No areas of architectural distortion are present. Microcalcifictions: No suspicious pleomorphic-type are seen. Skin Thickening/Nipple Retraction: None. Bilateral complete breast US: Echotexture: Hypoechoic tissue is seen in the retroareolar region of both breasts, left greater than right. The finding sonographically and mammographically most suggestive of gynecomastia. Shadowing: No suspicious foci. Cyst: None. Solid lesions: None seen. Ductal dilation: None. IMPRESSION: 1. No evidence of malignancy is noted. Bilateral gynecomastia, left greater than right. 2. Unless there is more urgent need, as per [place] [employer] guidelines. 3. The findings were discussed with the patient on the date of the examination. BI-RADS Category 2 - Benign Findings Breast Density - Category B - Scattered areas of fibroglandular density Breast density Category C or D implies that the patient has dense breast tissue. Dense breast tissue can make it harder to find cancer on a mammogram. Dense breast tissue is also associated with an incr eased risk of breast cancer. This information about the result of the mammogram report was provided to the patient to raise their awareness. Use this report when you speak with the patient about their risks for breast cancer, which includes their family history. At that time, you may recommend additional screening tests (Ultrasoun d or MRI) as these tests may add significant information. A negative radiographic report should not delay biopsy if a dominant or clinically suspicious mass is present. Up to ten percent of cancers are not identified on mammography. A negative report may reinforce clinical impression. Adenosis and dense breasts may obscure an underlying neoplasm. False positive reports average 6 to 10%. Patient will receive a letter notifying them of these results.
== END 2021-11-20 01:20 ==
PROVIDERS: PCP Nurse Practitioner Family; Visit Provider Internal Medicine
DX: N62 Hypertrophy of breast; N64.59 Other signs and symptoms in breast; N63.20 Unspecified lump in the left breast, unspecified quadrant
CPT/HCPCS: 76642; 77062; 77066; G0279

== ENCOUNTER 2021-11-24 14:10 | Emergency (ER) | payer OTHER, MEDICARE, BC, SELFPAY ==
[2021-11-24 14:30] VITALS: BP 110/66; PULSE 76; RESP 18; TEMP 36.5; O2SAT 98
--- NOTE | 2021-11-24 15:01 | W.ED.GENAD ---
Discharge Plan Disposition Patient Disposition: HOME Condition: Good Discharge Details Clinical Impression: Gastric foreign body Primary Care Provider: Stephie Jones ED Provider: Narinder High Home Meds and New Rx's Prescriptions: No Action budesonide-formoterol [Symbicort] 160-4.5 mcg/actuation HFA aerosol inhaler 2 puff inhalation BID Qty: 3 3RF acetaminophen 500 mg tablet 1,000 mg PO BID PRN0RF Metamucil 660 GM powder 1 - 2 tbs PO DAILY 0RF Label Comments: 02/24/18-Jordi LOWERY, [facility] [place]-GASTRO- 1/2 TSP DAILY X1 WK, INCR TO 1 TSP DAILY THEN INCR SLOWLY TO DOSE LISTED-LH thiamine mononitrate (vit B1) [Vitamin B-1 (mononitrate)] 100 mg tablet 100 mg PO DAILY Qty: 90 3RF atorvastatin 40 mg tablet 40 mg PO DAILY Qty: 90 3RF cholecalciferol (vitamin D3) 25 mcg (1,000 unit) tablet 50 mcg PO DAILY 0RF methocarbamol 500 mg tablet 500 mg PO Q6H PRN (Reason: muscle spasm) 0RF carvedilol 6.25 mg tablet 6.25 mg PO BID Qty: 180 3RF Rx Instructions: Administer with food pantoprazole 40 mg tablet,delayed release (DR/EC) See Rx Instructions .ROUTE .COMPLEX Qty: 90 0RF Dose Instruction: TAKE 1 TABLET BY MOUTH EVERY MORNING 30 TO 60 MINUTES BEFORE FIRST MEAL OF THE DAY ON AN EMPTY STOMACH Rx Instructions: TAKE 1 TABLET BY MOUTH EVERY MORNING 30 TO 60 MINUTES BEFORE FIRST MEAL OF THE DAY ON AN EMPTY STOMACH furosemide [Lasix] 20 mg tablet 20 mg PO QAM Qty: 90 3RF spironolactone 50 mg tablet 100 mg PO DAILY Qty: 180 3RF cyanocobalamin (vitamin B-12) [Vitamin B-12] 500 mcg Tablet 1,000 mcg PO DAILY Qty: 0 0RF Discharge Instructions Instructions: Foreign Body Ingestion (ED) Additional Instructions: Please continue to take your normally prescribed medications and stay well-hydrated. If you develop abdominal pain, nausea vomiting, any concerning symptoms, rectal bleeding or vomiting blood you should return immediately to the emergency department for reassessment. Otherwise metallic foreign body can passed without incident but if so recommend that you follow-up with your primary care provider in the next 1 to 2 weeks for reassessment if you are unaware if you have passed foreign object. Referrals: Stephie Jones NP [Primary Care Provider] - 2 weeks Discharge Data Discharge Date/Time-TO BE ENTERED AT DEPARTURE: 11/24/21 15:49 Medical Decision Making Patient being sent over to emergency department due to possible swallowing of foreign body while at dentist. Dentist reported missing a drill bit from the dental equipment. Patient is asymptomatic and denies ever remember swallowing anything but given missing piece was sent here for evaluation. Patient has baseline COPD and has diminished lung sounds but no significant coughing or wheezing is heard, patient has no obvious upper airway obstruction no stridor, patient has normal active bowel sounds with no abdominal tenderness. Will plan on performing plain film imaging to attempt to view radiopaque body. Review of radiological imaging shows a metallic foreign body which appears to be in the gastric area. Otherwise nonworrisome plain films. Patient given close monitoring of symptoms along with return and follow-up precautions but given that it is in the gastric system do not feel that any emergent interventions are required. HPI General Date/Time Provider Initiated Documentation: 11/24/21 14:34. Limitations to Documentation: no limitations. Information obtained by: patient and RN notes reviewed. History of Present Illness 76 year old M presents to the emergency department with the chief complaint of Swallowed foreign body, Quality is described as other (Denies pain or discomfort), Patient started experiencing this hour(s) (1) and it has been constant. improves with No relieving factors improve symptom(s), No exacerbating factors reported . Patient notes no other symptoms.. Patient did receive the following treatments prior to arrival, none Related Data Home Medications Medication Instructions Recorded Confirmed psyllium husk 3.4 gram/5.4 gram 1 - 2 tbs PO DAILY 02/25/18 11/24/21 oral powder (Metamucil) cyanocobalamin (vitamin B-12) 500 1,000 mcg PO DAILY #0 tab 06/18/20 11/24/21 mcg tablet (Vitamin B-12) thiamine mononitrate (vit B1) 100 100 mg PO DAILY #90 tab 08/26/20 11/24/21 mg tablet (Vitamin B-1 (mononitrate)) budesonide-formoterol HFA 160 2 puff INHALATION BID #3 unit 11/14/20 11/24/21 mcg-4.5 mcg/actuation aerosol inhaler (Symbicort) atorvastatin 40 mg tablet 40 mg PO DAILY #90 tab-cap 02/10/21 11/24/21 acetaminophen 500 mg tablet 1,000 mg PO BID PRN tab 04/04/21 11/24/21 cholecalciferol (vitamin D3) 25 50 mcg PO DAILY tab 04/04/21 11/24/21 mcg (1,000 unit) tablet methocarbamol 500 mg tablet 500 mg PO Q6H PRN tab 04/04/21 11/24/21 carvedilol 6.25 mg tablet 6.25 mg PO BID #180 tab 09/15/21 11/24/21 pantoprazole 40 mg tablet,delayed See Rx Instructions .ROUTE 10/09/21 11/24/21 release .COMPLEX #90 tab furosemide 20 mg tablet (Lasix) 20 mg PO QAM #90 tab 10/13/21 11/24/21 spironolactone 50 mg tablet 100 mg PO DAILY #180 tab 11/04/21 11/24/21 Previous Rx's Medication Instructions Recorded cyanocobalamin (vitamin B-12) 500 1,000 mcg PO DAILY #0 tab 06/18/20 mcg tablet (Vitamin B-12) thiamine mononitrate (vit B1) 100 100 mg PO DAILY #90 tab 08/26/20 mg tablet (Vitamin B-1 (mononitrate)) budesonide-formoterol HFA 160 2 puff INHALATION BID #3 unit 11/14/20 mcg-4.5 mcg/actuation aerosol inhaler (Symbicort) atorvastatin 40 mg tablet 40 mg PO DAILY #90 tab-cap 02/10/21 carvedilol 6.25 mg tablet 6.25 mg PO BID #180 tab 09/15/21 pantoprazole 40 mg tablet,delayed See Rx Instructions .ROUTE 10/09/21 release .COMPLEX #90 tab furosemide 20 mg tablet (Lasix) 20 mg PO QAM #90 tab 10/13/21 spironolactone 50 mg tablet 100 mg PO DAILY #180 tab 11/04/21 Allergies Allergy/AdvReac Type Severity Reaction Status Date / Time No Known Allergies Allergy Verified 11/24/21 14:36 General Stated Complaint: Abd Prob JAMEE: 3 Review of Systems Constitutional Constitutional: Denies chills and Denies fever(s) ENT Ears, Nose, Mouth, and Throat: Denies change in voice, Denies hoarseness, Denies neck pain, Denies sore throat and Denies throat swelling Cardiovascular Cardiovascular: Denies chest pain and Denies dyspnea Respiratory Respiratory: Denies cough (No change from baseline), Denies hemoptysis, Denies dyspnea, Denies stridor and Denies wheezing Gastrointestinal Gastrointestinal: Reports as per HPI, Denies abdominal pain, Denies melena, Denies change in bowel habits, Denies constipation, Denies diarrhea, Reports nausea and Reports vomiting Musculoskeletal Musculoskeletal: Denies neck pain Allergic/Immunologic Allergic/Immunologic: Denies throat swelling and Denies wheezing PFSH All Active Problems (Updated 11/24/21 @ 15:06 by Narinder High NP) Gastric foreign body (Acute) Breast mass, left (Acute) Edema, lower extremity (Acute) At risk for falls (Acute) Inflamed seborrheic keratosis (Acute) Right wrist tendonitis (Acute) Femur fracture, left (Acute ~02/2021) Hiatal hernia (Chronic) Noted on 01/17/2021 CT Lung nodules (Acute) Traumatic chest pain (Acute) Other bursitis of elbow, right elbow (Acute 01/02/21) Physician orders for life-sustaining treatment (POLST) form indicates patient wish for [id number] status (Chronic) Signed with Dr. Oakley June 2020; DNR/DNI Portal hypertension (Acute) Anemia (Chronic) Abscess of lung without pneumonia (Acute) 09/06/20 [facility] [place] lobe abscess. CXR due again 10/07/20 Frailty syndrome in geriatric patient (Chronic) Hematuria (Acute) Palliative care patient (Acute) Hyponatremia (Acute) Dysphagia (Chronic) 10/17/2018 EGD ([facility]): Smalls's & interval resolution of esophageal varices seen on previous EGD (see Smalls's dx comments for details); 06/06/2019 Barium Swallow: some dysmotility & aspiration --> referred to Speech Therapy 04/12/20 [facility] Esophageal Manometry; 05/17/2020 EGD: Grade I esophageal varices, duodenal erosions w/o bleeding, no obstructive cause for dysphagia 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 L; then occurred on R side and now chronic Smalls's esophagus (Chronic) 10/17/2018 EGD ([facility] [place]): esophageal mucosal changes classified as Smalls's stage C0-M1 per Olla criteria (also showed resolution of esophageal varices on carvedilol 6.25 mg BID) Tobacco use disorder (Chronic) 1.5- 2 PPD not interested in quitting 08/2020 Restless leg syndrome (Chronic) Alcohol use disorder (Chronic) not interested in quitting 08/2020 approx 48-60 oz of beer + hard liquor daily Sigmoid diverticulosis (Chronic 02/01/18) 02/01/2018 colonoscopy Incisional hernia, without obstruction or gangrene (Chronic 01/17/18) [facility] GI consult Hypertension (Chronic 08/01/14) Hyperlipidemia (Chronic 03/24/13) 11/2018 labs: good response to high potency statin, continue Hepatic cirrhosis (Chronic 01/14/18) [facility] [place] GI 02/24/2018 Fibroscan: stage 4 liver fibrosis, consistent with cirrhosis with possible portal HTN 06/22/2018 EGD (Dr. 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 Hale Derm Aspiration pneumonia due to regurgitated food Basal cell carcinoma (BCC) Face C3 cervical fracture Closed fracture of left orbit Family history of malignant melanoma ov note dated 05/10/20-Dr. Hale Fracture of nasal bone Frequent falls GERD (gastroesophageal reflux disease) History of basal cell carcinoma Hyperlipidemia Incontinence of feces Intertrochanteric fracture of left femur Malignant neoplasm of prostate Periprosthetic fracture around internal prosthetic left hip joint Rotator cuff syndrome (03/24/13) S/p B/L repair Squamous cell carcinoma Face Surgical History H/O colonoscopy 05/17/20 at [facility] [place] - no need for further to have any further colonscopy per report H/O endoscopy 05/17/20 [facility] [place] History of esophagogastroduodenoscopy (EGD) (06/22/18) dr hoang, grade I esophageal varices Left shoulder (09/24/07) Marci Fundoplication (03/24/85) Prostatectomy (~05/2007) Repair of incision from Marci fundoplication (03/24/87) right shoulder (03/24/00) S/P skin biopsy (~09/2020) R inguinal fold on margins of scrotum-Dr Hale Family History Mother , resp failure due to COPD age 69 COPD (chronic obstructive pulmonary disease) Smoker Father , widespread cancer age 73 Personal history of malignant neoplasm prostate Malignant melanoma Smoker Prostate cancer COPD (chronic obstructive pulmonary disease) Son No problems noted. Daughter No problems noted. Brother , age 68 from COPD COPD (chronic obstructive pulmonary disease) Smoker Sister , age 62 from pancreatic cancer Smoker Pancreatic cancer Social History Smoking/Tobacco Use Status: Current every day Tobacco Type: cigarettes Tobacco: How many years used: 60 Quit status: not considering quitting Second Hand Exposure: No Counseling given: counseling >3 minutes Smoking risk assessment performed?: Yes Alcohol Intake: current Alcohol Intake frequency: 3 or more drinks per day Alcohol type: beer and hard liquor Counseling provided: other Drug use: Never Substance use type: does not use Counseling provided: provider counseling Caregiver/Support person: No Household members: none Housing: house Number of Children: 2 number of grandchildren: 3 Communication Needs: Corrective Lenses Education Level: high school Do you need help understanding health information?: Often 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; 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 Do you think of yourself as: straight/heterosexual Current gender identity: male What is your relationship status?: How often do you talk on the phone with friends or family?: once per week How often do you get together with friends or relatives?: once per week Panel score (0-1 are the most socially isolated patients): 0 What type of physical activity do you participate in: none Special tg needs: No Agree to transfusion: No Seatbelt use: always Water heater temp set <120 deg: Yes Working smoke detector in home: Yes Fire extinguisher in home: Yes Carbon monox detector in home: Yes Firearms in home: No Do you feel safe at home: Yes Do you feel safe in your relationship?: Yes Exam Const General: cooperative Orientation: alert, awake and oriented x3 Resp Effort & Inspection: normal respiratory effort and able to speak in complete sentences Auscultation: clear to auscultation bilaterally and diminished lung sounds bilaterally throughout Cardio Rate: regular rate Rhythm: regular rhythm Heart Sounds: S1 normal and S2 normal GI Palpation: soft, not firm, no guarding, no masses, no pulsatile masses, not rigid and nontender Auscultation: normal bowel sounds Neuro General: patient alert, patient awake, patient oriented x3, gait normal and moves all extremities Course Vital Signs Vital signs: Vital Signs Temperature 36.5 C 11/24/21 14:30 Pulse 76 11/24/21 14:30 Respiratory Rate 18 11/24/21 14:30 Blood Pressure 110/66 11/24/21 14:30 Pulse Oximetry 98 11/24/21 14:30 Temperature 36.5 C 11/24/21 14:30 Temperature Source Tympanic 11/24/21 14:30 Pulse 76 11/24/21 14:30 Respiratory Rate 18 11/24/21 14:30 Respiratory Effort Non-Labored 11/24/21 14:34 Blood Pressure 110/66 11/24/21 14:30 Blood Pressure Position Sitting 11/24/21 14:30 Pulse Oximetry 98 11/24/21 14:30 Oxygen Delivery Method Room Air 11/24/21 14:30 Oxygen Flow Rate 0 11/24/21 14:30 Pain Level 0 11/24/21 14:30 PAWSS Have you Been Recently Intoxicated or Drunk Within the Last 30 days?: No Have you Ever Experienced Previous Episodes of Alcohol Withdrawal?: No Have you ever Experienced Withdrawal Seizures?: No Have you ever Experienced Delirium Tremens(DT)s?: No Have you ever undergone Alcohol Rehabilitation Treatment (i.e, inpt ot outpatient treatment programs)?: No Have you ever Experienced Blackouts?: No Have you ever Combined Alcohol with other Downers within the last 90 days?: No Have you ever Combined Alcohol with any other Substance of Abuse during the last 90 days?: No Positive Blood Alcohol level on Presentation? [PCS.BAL]: No Evidence of Increased Autonomic Activity (i.e. HR>120, tremor, sweating, agitation, nausea)?: No Result: 0
--- NOTE | 2021-11-24 15:03 | DI.RAD_ITS ---
Exam(s) XR ABD FLAT UPRIGHT PA CHEST CLINICAL HISTORY: Gastric foreign object. COMPARISON: CT CT CHEST PE ABD PELVIS W from 08/08/2020 FINDINGS: LUNGS: Emphysematous and fibrotic changes. No infiltrate.. No pleural abnormality seen. HEART: Normal. MEDIASTINUM: Normal. BOWEL GAS PATTERN: Nondistended bowel loops. No air-fluid levels seen. ABNORMAL COLLECTIONS OF AIR: No abnormal collection of air. No pneumoperitoneum. CALCIFICATIONS: None. No radiopaque renal, ureteral, or bladder calcification visible however the kid neys are obscured by overlying bowel gas.. OTHER FINDINGS: Linear foreign body in the left upper quadrant projects in the expected location of t he stomach. IMPRESSION: 1. Nonobstructive bowel gas pattern. 2. No acute pulmonary findings. 3. Linear foreign body projects in the region of the stomach.
[2021-11-24 15:42] VITALS: BP 116/64; PULSE 72; RESP 15; TEMP 36.4; O2SAT 98
== END 2021-11-24 15:49 | disposition home or self-care (01) ==
PROVIDERS: Emergency Provider Nurse Practitioner Family; PCP Nurse Practitioner Family
DX: T18.2XXA Foreign body in stomach, initial encounter (principal); X58.XXXA Exposure to other specified factors, initial encounter
CPT/HCPCS: 99283; 74022

== ENCOUNTER 2021-12-21 06:45 | Emergency (ER) | payer MEDICARE, BC, SELFPAY ==
[2021-12-21 06:50] VITALS: BP 129/75; PULSE 106; RESP 20; TEMP 36.6; O2SAT 97
--- NOTE | 2021-12-21 07:07 | ED.GENADUL_ITS ---
Discharge Plan Disposition Patient Disposition: HOME Condition: Stable Discharge Details Clinical Impression: Skin tear of right hand without complication Primary Care Provider: Stephie Jones ED Provider: Martin Hess Home Meds and New Rx's Prescriptions: Continued acetaminophen 500 mg tablet 1,000 mg PO BID PRN0RF Metamucil 660 GM powder 1 - 2 tbs PO DAILY 0RF Label Comments: 02/24/18-Jordi LOWERY, [facility]-GASTRO- 1/2 TSP DAILY X1 WK, INCR TO 1 TSP DAILY THEN INCR SLOWLY TO DOSE LISTED-LH thiamine mononitrate (vit B1) [Vitamin B-1 (mononitrate)] 100 mg tablet 100 mg PO DAILY Qty: 90 3RF atorvastatin 40 mg tablet 40 mg PO DAILY Qty: 90 3RF cholecalciferol (vitamin D3) 25 mcg (1,000 unit) tablet 50 mcg PO DAILY 0RF methocarbamol 500 mg tablet 500 mg PO Q6H PRN (Reason: muscle spasm) 0RF carvedilol 6.25 mg tablet 6.25 mg PO BID Qty: 180 3RF Rx Instructions: Administer with food pantoprazole 40 mg tablet,delayed release (DR/EC) See Rx Instructions .ROUTE .COMPLEX Qty: 90 0RF Dose Instruction: TAKE 1 TABLET BY MOUTH EVERY MORNING 30 TO 60 MINUTES BEFORE FIRST MEAL OF THE DAY ON AN EMPTY STOMACH Rx Instructions: TAKE 1 TABLET BY MOUTH EVERY MORNING 30 TO 60 MINUTES BEFORE FIRST MEAL OF THE DAY ON AN EMPTY STOMACH furosemide [Lasix] 20 mg tablet 20 mg PO QAM Qty: 90 3RF spironolactone 50 mg tablet 100 mg PO DAILY Qty: 180 3RF budesonide-formoterol [Symbicort] 160-4.5 mcg/actuation HFA aerosol inhaler 2 puff inhalation BID Qty: 3 3RF cyanocobalamin (vitamin B-12) [Vitamin B-12] 500 mcg Tablet 1,000 mcg PO DAILY Qty: 0 0RF Discharge Instructions Instructions: Skin Tear (ED) Additional Instructions: Keep wound dressing clean, dry and intact for the next 3 days. Change dressing daily thereafter. Be sure to use sterile dressing until healed. Please contact your primary care physician to arrange follow-up as needed. Return to the ER immediately for any worsening or new concerning symptoms. Referrals: Stephie Jones NP [Primary Care Provider] - Medical Decision Making 76-year-old male presents with right hand skin tear that occurred 24 hours ago. No active bleeding. Wound is not amenable to primary closure. Plan to clean wound and apply sterile dressing. Tetanus up-to-date per nursing. HPI General Mode of arrival: ambulatory . Date/Time Provider Initiated Documentation: 12/21/21 07:07 . Limitations to Documentation: no limitations . Information obtained by: patient . HPI Narrative: 76-year-old male presents with chief complaint of skin tear. Patient notes he fell out of his chair yesterday and sustained skin tear right hand. Wound was initially bleeding. He applied dressing and bleeding is stopped. This occurred approximately 24 hours ago. No other injury. Related Data Home Medications Medication Instructions Recorded Confirmed psyllium husk 3.4 gram/5.4 gram 1 - 2 tbs PO DAILY 02/25/18 12/21/21 oral powder (Metamucil) cyanocobalamin (vitamin B-12) 500 1,000 mcg PO DAILY #0 tab 06/18/20 12/21/21 mcg tablet (Vitamin B-12) thiamine mononitrate (vit B1) 100 100 mg PO DAILY #90 tab 08/26/20 12/21/21 mg tablet (Vitamin B-1 (mononitrate)) atorvastatin 40 mg tablet 40 mg PO DAILY #90 tab-cap 02/10/21 12/21/21 acetaminophen 500 mg tablet 1,000 mg PO BID PRN tab 04/04/21 12/21/21 cholecalciferol (vitamin D3) 25 50 mcg PO DAILY tab 04/04/21 12/21/21 mcg (1,000 unit) tablet methocarbamol 500 mg tablet 500 mg PO Q6H PRN tab 04/04/21 12/21/21 carvedilol 6.25 mg tablet 6.25 mg PO BID #180 tab 09/15/21 12/21/21 pantoprazole 40 mg tablet,delayed See Rx Instructions .ROUTE 10/09/21 12/21/21 release .COMPLEX #90 tab furosemide 20 mg tablet (Lasix) 20 mg PO QAM #90 tab 10/13/21 12/21/21 spironolactone 50 mg tablet 100 mg PO DAILY #180 tab 11/04/21 12/21/21 budesonide-formoterol HFA 160 2 puff INHALATION BID #3 unit 12/03/21 12/21/21 mcg-4.5 mcg/actuation aerosol inhaler (Symbicort) Previous Rx's Medication Instructions Recorded cyanocobalamin (vitamin B-12) 500 1,000 mcg PO DAILY #0 tab 06/18/20 mcg tablet (Vitamin B-12) thiamine mononitrate (vit B1) 100 100 mg PO DAILY #90 tab 08/26/20 mg tablet (Vitamin B-1 (mononitrate)) atorvastatin 40 mg tablet 40 mg PO DAILY #90 tab-cap 02/10/21 carvedilol 6.25 mg tablet 6.25 mg PO BID #180 tab 09/15/21 pantoprazole 40 mg tablet,delayed See Rx Instructions .ROUTE 10/09/21 release .COMPLEX #90 tab furosemide 20 mg tablet (Lasix) 20 mg PO QAM #90 tab 10/13/21 spironolactone 50 mg tablet 100 mg PO DAILY #180 tab 11/04/21 budesonide-formoterol HFA 160 2 puff INHALATION BID #3 unit 12/03/21 mcg-4.5 mcg/actuation aerosol inhaler (Symbicort) Allergies Allergy/AdvReac Type Severity Reaction Status Date / Time No Known Allergies Allergy Verified 12/21/21 06:56 General Stated Complaint: Laceration JAMEE: 4 Review of Systems Integumentary/Breasts Skin/Breast: Reports as per [facility] PFSH All Active Problems Skin tear of right hand without complication (Acute) Gastric foreign body (Acute) Breast mass, left (Acute) At risk for falls (Acute) Inflamed seborrheic keratosis (Acute) Right wrist tendonitis (Acute) Hiatal hernia (Chronic) Noted on 01/17/2021 CT Lung nodules (Acute) Other bursitis of elbow, right elbow (Acute 01/02/21) Portal hypertension (Acute) Anemia (Chronic) Abscess of lung without pneumonia (Acute) 09/06/20 [facility] lower lobe abscess. 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 L; then occurred on R side and now chronic Smalls's esophagus (Chronic) 10/17/2018 EGD ([facility]): esophageal mucosal changes classified as Smalls's stage C0-M1 per [place] criteria (also showed resolution of esophageal varices on carvedilol 6.25 mg BID) Tobacco use disorder (Chronic) 1.5- 2 PPD not interested in quitting 08/2020 Restless leg syndrome (Chronic) Alcohol use disorder (Chronic) not interested in quitting 08/2020 approx 48-60 oz of beer + hard liquor daily Sigmoid diverticulosis (Chronic 02/01/18) 02/01/2018 colonoscopy Incisional hernia, without obstruction or gangrene (Chronic 01/17/18) [facility] GI consult Hypertension (Chronic 08/01/14) Hyperlipidemia (Chronic 03/24/13) 11/2018 labs: good response to high potency statin, continue Hepatic cirrhosis (Chronic 01/14/18) [facility] GI 02/24/2018 Fibroscan: stage 4 liver fibrosis, consistent with cirrhosis with possible portal HTN 06/22/2018 EGD (Dr. 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 Hale Derm Aspiration pneumonia due to regurgitated food Basal cell carcinoma (BCC) Face C3 cervical fracture Closed fracture of left orbit Esophageal varices 06/22/2017 EGD (Dr. Hoang): grade 1 w/ stigmata of bleeding; 10/17/2018 EGD ([facility]): no evidence of esophageal or gastric varices on carvedilol 6.25 mg BID Family history of malignant melanoma ov note dated 05/10/20-Dr. Hale Femur fracture, left (~02/2021) Fracture of nasal bone GERD (gastroesophageal reflux disease) History of basal cell carcinoma Incontinence of feces Intertrochanteric fracture of left femur Malignant neoplasm of prostate Palliative care patient Periprosthetic fracture around internal prosthetic left hip joint Rotator cuff syndrome (03/24/13) S/p B/L repair Squamous cell carcinoma Face Surgical History H/O colonoscopy 05/17/20 at [facility] - no need for further to have any further colonscopy per report H/O endoscopy 05/17/20 [facility] History of esophagogastroduodenoscopy (EGD) (06/22/18) dr hoang, grade I esophageal varices Left shoulder (09/24/07) Marci Fundoplication (03/24/85) Prostatectomy (~05/2007) Repair of incision from Marci fundoplication (03/24/87) right shoulder (03/24/00) S/P skin biopsy (~09/2020) R inguinal fold on margins of scrotum-Dr Hale Family History Mother , resp failure due to COPD age 69 COPD (chronic obstructive pulmonary disease) Smoker Father , widespread cancer age 73 Personal history of malignant neoplasm prostate Malignant melanoma Smoker Prostate cancer COPD (chronic obstructive pulmonary disease) Son No problems noted. Daughter No problems noted. Brother , age 68 from COPD COPD (chronic obstructive pulmonary disease) Smoker Sister , age 62 from pancreatic cancer Smoker Pancreatic cancer Social History Smoking/Tobacco Use Status: Current every day Tobacco Type: cigarettes Tobacco: How many years used: 60 Quit status: not considering quitting Second Hand Exposure: No Counseling given: counseling >3 minutes Smoking risk assessment performed?: Yes Alcohol Intake: current Alcohol Intake frequency: 3 or more drinks per day Alcohol type: beer and hard liquor Counseling provided: other Drug use: Never Substance use type: does not use Counseling provided: provider counseling Caregiver/Support person: No Household members: none Housing: house Number of Children: 2 number of grandchildren: 3 Communication Needs: Corrective Lenses Education Level: high school Do you need help understanding health information?: Often 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; 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 Do you think of yourself as: straight/heterosexual Current gender identity: male What is your relationship status?: How often do you talk on the phone with friends or family?: once per week How often do you get together with friends or relatives?: once per week Panel score (0-1 are the most socially isolated patients): 0 What type of physical activity do you participate in: none Special tg needs: No Agree to transfusion: No Seatbelt use: always Water heater temp set <120 deg: Yes Working smoke detector in home: Yes Fire extinguisher in home: Yes Carbon monox detector in home: Yes Firearms in home: No Do you feel safe at home: Yes Do you feel safe in your relationship?: Yes Exam Skin Trauma: other (Skin tear right hand dorsal, no active bleeding) Extrem Right upper extremity: hand Details: neuromotor exam normal, neurosensory exam normal and tendon exam normal; Negative for no tenderness Course Vital Signs Vital signs: Vital Signs Temperature 36.6 C 12/21/21 06:50 Pulse 106 H 12/21/21 06:50 Respiratory Rate 20 12/21/21 06:50 Blood Pressure 129/75 12/21/21 06:50 Pulse Oximetry 97 12/21/21 06:50 Temperature 36.6 C 12/21/21 06:50 Temperature Source Skin 12/21/21 06:50 Pulse 106 H 12/21/21 06:50 Respiratory Rate 20 12/21/21 06:50 Respiratory Effort 12/21/21 06:58 Blood Pressure 129/75 12/21/21 06:50 Blood Pressure Position Sitting 12/21/21 06:50 Pulse Oximetry 97 12/21/21 06:50 Oxygen Delivery Method Room Air 12/21/21 06:50 Oxygen Flow Rate 0 12/21/21 06:50 Pain Level 0 12/21/21 06:58 PAWSS Have you Been Recently Intoxicated or Drunk Within the Last 30 days?: Yes Have you Ever Experienced Previous Episodes of Alcohol Withdrawal?: No Have you ever Experienced Withdrawal Seizures?: No Have you ever Experienced Delirium Tremens(DT)s?: No Have you ever undergone Alcohol Rehabilitation Treatment (i.e, inpt ot outpatient treatment programs)?: No Have you ever Experienced Blackouts?: No Have you ever Combined Alcohol with other Downers within the last 90 days?: No Have you ever Combined Alcohol with any other Substance of Abuse during the last 90 days?: No Positive Blood Alcohol level on Presentation? [PCS.BAL]: No Evidence of Increased Autonomic Activity (i.e. HR>120, tremor, sweating, agitation, nausea)?: No Result: 1
== END 2021-12-21 07:38 | disposition home or self-care (01) ==
PROVIDERS: Emergency Provider Student in an Organized Health Care Education/Training Program; PCP Nurse Practitioner Family
DX: S61.411A Laceration without foreign body of right hand, initial encounter (principal); W07.XXXA Fall from chair, initial encounter
CPT/HCPCS: 99282

== ENCOUNTER → 2021-12-29 02:24 | Outpatient (CLI) | payer MEDICARE, BC, SELFPAY ==
--- NOTE | 2021-12-29 06:15 | DI.US_ITS ---
Exam(s) US ABDOMEN EXAM: US ABDOMEN CLINICAL HISTORY: HCC screening (h/o cirrhosis).k70.30 TECHNIQUE: Ultrasound abdomen performed using standard protocol. COMPARISON: US US ABDOMEN from 06/24/2021 FINDINGS: ABDOMINAL AORTA AND IVC: Visualized portions normal caliber. There is atherosclerosis of the abdomina l aorta. PANCREAS: Not visualized due to overlying bowel. LIVER: There is a lobulated contour of the liver suggesting hepatic cirrhosis. No evidence of a hepa tic mass. The liver measures 11.4 cm long. Hepatopedal flow in the Portal Vein. GALLBLADDER:There is a 0.5 cm echogenic mobile focus in the gallbladder consistent with a stone. The gallbladder wall measures 3.7 mm. No pericholecystic fluid identified. BILIARY SYSTEM: Common bile duct measures 8.7 mm. The common duct previously measured 9.7 mm. No in trahepatic biliary ductal dilation. KAPADIA'S SIGN: Negative. KIDNEYS: Kidneys are symmetric in size. No evidence of renal calculi. No evidence of hydronephrosis. No renal mass or cyst identified. SPLEEN: Not enlarged. ASCITES: None seen. IMPRESSION: 1. Lobulated contour of the liver suggesting hepatic cirrhosis. No evidence of a hepatic mass sonogr aphically. 2. Cholelithiasis. 3. Common duct measures 8.7 mm. This is decreased in size compared to the prior examination. No int rahepatic biliary ductal dilatation. DATA REPOSITORY:
== END ==
PROVIDERS: PCP Nurse Practitioner Family; Visit Provider Nurse Practitioner Family
DX: K80.20 Calculus of gallbladder without cholecystitis without obstruction (principal); R93.5 Abnormal findings on diagnostic imaging of other abdominal regions, including retroperitoneum
CPT/HCPCS: 36415; 80053; 80061; 84153; 76700; 85025

== ENCOUNTER 2021-12-29 03:29 | Outpatient (CLI) | payer MEDICARE, BC, SELFPAY ==
[2021-12-29 07:57] LABS: Abs Immature Grans 0.07 10^3/uL (0.0-0.06); Absolute Basophil Count 0.07 10^3/uL (0.0-0.2); Absolute Eosinophil Count 0.24 10^3/uL (0.0-0.7); Absolute Lymphocyte Count 1.32 10^3/uL (1.2-3.4); Absolute Monocyte Count 0.85 10^3/uL (0.1-0.8); Absolute Neutrophil Count 5.41 10^3/uL (1.2-6.7); Basophils % 0.9; HGB 12.1 g/dL (13.5-17.5); Immature Grans % 0.9; Lymphocytes % 16.6; MCV 90 fL (80-95); MPV 8.5 fL (8.0-11.0); Monocytes % 10.7; Neutrophils % 67.9; Platelet Count 312 10^3/uL (130-400); RBC 4.32 10^6/uL (4.36-5.78); RDW 16.1 % (11.8-14.1); RDW-SD 54.2 fL; WBC 7.96 10^3/uL (4.4-10.8)
[2021-12-29 08:41] LABS: ALT 18 U/L (16-63); AST 24 U/L (15-37); Albumin 3.6 g/dL (3.4-5.0); Alkaline Phosphatase 104 U/L (46-116); Anion Gap 7.8 mmol/L (3-11); BUN 15 mg/dL (7-18); CO2 31.2 mmol/L (21.0-32.0); Calcium 8.8 mg/dL (8.5-10.1); Calculated LDL 93 mg/dL (<100); Chloride 97 mmol/L (98-107); Cholesterol 171 mg/dL (<200); Glucose 96 mg/dL (74-106); HDL Cholesterol 70 mg/dL (40-60); Potassium 4.6 mmol/L (3.5-5.1); Sodium 136 mmol/L (136-145); Total Protein 7.6 g/dL (6.4-8.2); Triglyceride 44 mg/dL (<150)
[2021-12-29 08:56] LABS: Bilirubin, Total 0.5 mg/dL (0.2-1.0)
[2021-12-29 18:03] LABS: PSA, Screening <0.1 ng/mL (<=6.5)
== END 2021-12-29 03:30 | disposition home or self-care (01) ==
LOC: LBO 03:29
PROVIDERS: PCP Nurse Practitioner Family; Visit Provider Nurse Practitioner Family
DX: I10 Essential (primary) hypertension (principal); K70.30 Alcoholic cirrhosis of liver without ascites; E78.5 Hyperlipidemia, unspecified; Z12.5 Encounter for screening for malignant neoplasm of prostate
CPT/HCPCS: 36415; 80053; 80061; 84153; 85025

== ENCOUNTER 2021-12-30 15:45 | Outpatient (REF) | payer MEDICARE, BC, SELFPAY ==
[2021-12-30 18:31] LABS: Bilirubin Negative (Negative); Blood Negative (Negative); Clarity Clear (Clear); Glucose Negative (Negative); Ketones Negative (Negative); Leukocyte Esterase Negative (Negative); Nitrite Negative (Negative); Urobilinogen 0.2 EU/dL (Up TO 0.2)
== END 2021-12-30 15:46 | disposition home or self-care (01) ==
LOC: LBN 15:45
PROVIDERS: PCP Nurse Practitioner Family; Visit Provider Nurse Practitioner
DX: R31.9 Hematuria, unspecified (principal)
CPT/HCPCS: 81003

== ENCOUNTER 2022-04-03 04:10 | Emergency (ER) | payer MEDICARE, BC, SELFPAY ==
[2022-04-03 04:12] VITALS: BP 141/78; PULSE 89; RESP 20; TEMP 36.3; O2SAT 92
--- NOTE | 2022-04-03 04:15 | DI.CT_ITS ---
Exam(s) CT HEAD WO EXAM: CT HEAD WO CLINICAL HISTORY: fell, hit head, r/o bleed. TECHNIQUE: Imaging Protocol: Axial computed tomography images with coronal and sagittal reformatted images were created and reviewed COMPARISON: CT CT HEAD CERVICAL SPINE WO from 10/12/2021 FINDINGS: Ventricles and Extra axial spaces: Normal in size and morphology for the patient's age. Hemorrhage: None. Cerebral parenchyma: Mild atrophy. Mild white matter changes consistent with small vessel disease. Midline shift: None. Brainstem/Cerebellum: Normal. Calvarium: Normal. Visualized Paranasal sinuses/Mastoids: Mucous retention the right frontal sinus, otherwise clear. Soft Tissues: Anna in the scalp near the vertex. IMPRESSION: No acute abnormality. RADIATION DOSE DELIVERED: 803.1mGy.cm Total DLP 803.1mGy.cm Total DLP DATA REPOSITORY: All CT scans at this facility are submitted to the National Radiology Data Registry (NRDR) Dose Index Registry (DIR) with the [employer] (ACR). RADIATION OPTIMIZATION: All CT scans at this facility use at least one of these dose optimization te chniques: automated exposure control; mA and/or kV adjustment per patient size (includes targeted exa ms where dose is matched to clinical indication); or iterative reconstruction.
--- NOTE | 2022-04-03 04:28 | ED.GENADUL_ITS ---
Discharge Plan Disposition Patient Disposition: HOME Condition: Good Discharge Details Chief Complaint: Laceration Clinical Impression: Fall, Laceration of scalp, Skin tear of left lower leg without complication Primary Care Provider: Stephie Jones ED Provider: Kenny Pitt Home Meds and New Rx's Prescriptions: No Action acetaminophen 500 mg tablet 1,000 mg PO BID PRN Metamucil 660 GM powder 1 - 2 tbs PO DAILY Label Comments: 02/24/18-Jordi LOWERY, [facility]-GASTRO- 1/2 TSP DAILY X1 WK, INCR TO 1 TSP DAILY THEN INCR SLOWLY TO DOSE LISTED-LH thiamine mononitrate (vit B1) [Vitamin B-1 (mononitrate)] 100 mg tablet 100 mg PO DAILY Qty: 90 3RF cholecalciferol (vitamin D3) 25 mcg (1,000 unit) tablet 50 mcg PO DAILY methocarbamol 500 mg tablet 500 mg PO Q6H PRN (Reason: muscle spasm) carvedilol 6.25 mg tablet 6.25 mg PO BID Qty: 180 3RF Rx Instructions: Administer with food furosemide [Lasix] 20 mg tablet 20 mg PO QAM Qty: 90 3RF spironolactone 50 mg tablet 100 mg PO DAILY Qty: 180 3RF budesonide-formoterol [Symbicort] 160-4.5 mcg/actuation HFA aerosol inhaler 2 puff inhalation BID Qty: 3 3RF pantoprazole 40 mg tablet,delayed release (DR/EC) See Rx Instructions .ROUTE .COMPLEX Qty: 90 0RF Dose Instruction: TAKE 1 TABLET BY MOUTH EVERY MORNING 30 TO 60 MINUTES BEFORE FIRST MEAL OF THE DAY ON AN EMPTY STOMACH Rx Instructions: TAKE 1 TABLET BY MOUTH EVERY MORNING 30 TO 60 MINUTES BEFORE FIRST MEAL OF THE DAY ON AN EMPTY STOMACH atorvastatin 40 mg tablet 40 mg PO DAILY Qty: 90 0RF cyanocobalamin (vitamin B-12) [Vitamin B-12] 500 mcg Tablet 1,000 mcg PO DAILY Qty: 0 0RF Discharge Instructions Instructions: Staple Care (ED) Additional Instructions: Your lacerations have been stable. Please keep them dry and do not soak them in any water. You can gently wash them in water after 48 to 72 hours. If you notice any redness or drainage please return immediately for reassessment as this could represent infection. Please return in 10 days to have the myah removed from your head, and please return in 14 days to have the myah removed from your gutierrez. Because the skin is so thin on your gutierrez please follow-up with your family doctor for wound check to make sure that it is healing well. There is a chance it will not heal well secondary to the thin nature of the skin. If you notice any worsening of your symptoms, or any new symptoms such as vomiting, diarrhea, fever, chills, shortness of breath, chest pain, numbness, weakness, or fainting , please return immediately to the emergency department for reevaluation. Please follow up with your primary care provider as soon as possible for reassessment and reevaluation. As always, it was a pleasure participating in your medical care today. Referrals: Stephie Jones NP [Primary Care Provider] - Medical Decision Making 76-year-old male with a past medical history of previous falls, GERD, palliative care patient, previous prostate cancer, who presents today for evaluation of fall. He is on no blood thinners. Patient states that he got up and fell hitting a piece of furniture. He recalls the entire event. He is able to get up on his own. He struck his head and his left gutierrez. Tetanus was updated within the last 2 years. He denies any numbness tingling or new weakness. He denies any vision changes. He denies any headache. He was brought in by a friend. No other complaints at this time. No other modifying factors. Exam demonstrates a small 2.5 cm laceration on the patient's scalp, this was stapled together with 3 myah. This caused good hemostasis. We will get a CT scan of the head secondary to the nature of the trauma and the patient's age and risk factors. No midline cervical thoracic or lumbar spine tenderness. He does have a notable skin tear over the anterior lateral aspect of the gutierrez on the left. We will stapled the affected areas, clean them, monitor closely and reassess 4:52 AM Scalp laceration was stapled with 3 myah, left gutierrez skin tear was stapled with 9 myah, Steri-Strips and Dermabond. Patient tolerated this well. CT scan of the head negative for acute process. Patient neurologically intact and otherwise stable. Tetanus is up-to-date. Patient stable for discharge. The areas were bandaged. No evidence of significant intracranial neurologic abnormality or hemorrhage I have extensively reviewed the treatment plan and discharge instructions with the patient. I have addressed all patient concerns at this time. The patient was made aware of what symptoms to monitor for that would warrant a return to the emergency department. Discussed the plan with the patient, they demonstrate verbal understanding and agreement with our assessment and plan at this time. The documentation in this chart was dictated using Jipio dictation software. Please excuse any dictation errors. FINDINGS: Brain: Diffuse sulcal enlargement is compatible with age-related cerebral volume loss. There is no intracranial hemorrhage, mass effect, midline shift, or extra-axial collection. Brar-white matter differentiation is preserved. There is no evidence of acute territorial infarct. There are tiny chronic lacunar infarcts in the left basal ganglia. Mild patchy periventricular and deep white matter hypoattenuation is nonspecific though most likely the sequela of underlying chronic microangiopathy in a patient of this age. Cerebral ventricles: Diffuse mild ventricular enlargement compatible with age- related cerebral volume loss. No hydrocephalus. Paranasal sinuses: Partial opacification of the right frontal sinus, not significantly changed. No airfluid levels in the paranasal sinuses. Mastoid air cells: The mastoid air cells are clear bilaterally. Bones/joints: Unremarkable. No depressed calvarial fracture. Soft tissues: Minimal soft tissue swelling with overlying skin myah in the high left frontal scalp. Vasculature: Atherosclerotic vascular calcifications are noted at the skull base IMPRESSION: 1. No acute intracranial abnormality. No intracranial hemorrhage or depressed calvarial fracture. 2. Stable chronic and incidental findings are discussed in the body of the report. Thank you for allowing us to participate in the care of your patient. Dictated and Authenticated by: Chanell Naik MD 04/03/2022 4:56 AM Eastern Time ([place] & [place]) HPI General Date/Time Provider Initiated Documentation: 04/03/22 04:27 . HPI Narrative: 76-year-old male with a past medical history of previous falls, GERD, palliative care patient, previous prostate cancer, who presents today for evaluation of fall. He is on no blood thinners. Patient states that he got up and fell hitting a piece of furniture. He recalls the entire event. He is able to get up on his own. He struck his head and his left gutierrez. Tetanus was updated within the last 2 years. He denies any numbness tingling or new weakness. He denies any vision changes. He denies any headache. He was brought in by a friend. No other complaints at this time. No other modifying factors. Related Data Home Medications Medication Instructions Recorded Confirmed psyllium husk 3.4 gram/5.4 gram 1 - 2 tbs PO DAILY 02/25/18 04/03/22 oral powder (Metamucil) cyanocobalamin (vitamin B-12) 500 1,000 mcg PO DAILY #0 tabs 06/18/20 04/03/22 mcg tablet (Vitamin B-12) thiamine mononitrate (vit B1) 100 100 mg PO DAILY #90 tabs 08/26/20 04/03/22 mg tablet (Vitamin B-1 (mononitrate)) acetaminophen 500 mg tablet 1,000 mg PO BID PRN 04/04/21 04/03/22 cholecalciferol (vitamin D3) 25 50 mcg PO DAILY 04/04/21 04/03/22 mcg (1,000 unit) tablet methocarbamol 500 mg tablet 500 mg PO Q6H PRN muscle spasm 04/04/21 04/03/22 carvedilol 6.25 mg tablet 6.25 mg PO BID esophageal varices 09/15/21 04/03/22 #180 tabs furosemide 20 mg tablet (Lasix) 20 mg PO QAM cirrhosis #90 tabs 10/13/21 04/03/22 spironolactone 50 mg tablet 100 mg PO DAILY #180 tabs 11/04/21 04/03/22 budesonide-formoterol HFA 160 2 puff inhalation BID #3 units 12/03/21 04/03/22 mcg-4.5 mcg/actuation aerosol inhaler (Symbicort) pantoprazole 40 mg tablet,delayed See Rx Instructions .Route 01/21/22 04/03/22 release .COMPLEX #90 tabs atorvastatin 40 mg tablet 40 mg PO DAILY #90 tab-caps 03/04/22 04/03/22 Previous Rx's Medication Instructions Recorded cyanocobalamin (vitamin B-12) 500 1,000 mcg PO DAILY #0 tabs 06/18/20 mcg tablet (Vitamin B-12) thiamine mononitrate (vit B1) 100 100 mg PO DAILY #90 tabs 08/26/20 mg tablet (Vitamin B-1 (mononitrate)) carvedilol 6.25 mg tablet 6.25 mg PO BID esophageal varices 09/15/21 #180 tabs furosemide 20 mg tablet (Lasix) 20 mg PO QAM cirrhosis #90 tabs 10/13/21 spironolactone 50 mg tablet 100 mg PO DAILY #180 tabs 11/04/21 budesonide-formoterol HFA 160 2 puff inhalation BID #3 units 12/03/21 mcg-4.5 mcg/actuation aerosol inhaler (Symbicort) pantoprazole 40 mg tablet,delayed See Rx Instructions .Route 01/21/22 release .COMPLEX #90 tabs atorvastatin 40 mg tablet 40 mg PO DAILY #90 tab-caps 03/04/22 Allergies Allergy/AdvReac Type Severity Reaction Status Date / Time No Known Allergies Allergy Verified 04/03/22 04:17 General Stated Complaint: Laceration JAMEE: 4 Review of Systems All systems reviewed & are unremarkable except as noted in HPI and below PFSH All Active Problems (Updated 04/03/22 @ 04:59 by Kenny Pitt DO) Fall (Acute) Laceration of scalp (Acute) Skin tear of left lower leg without complication (Acute) Venous stasis (Acute) Onychomycosis (Acute) At risk for falls (Acute) Inflamed seborrheic keratosis (Acute) Right wrist tendonitis (Acute) Hiatal hernia (Chronic) Noted on 01/17/2021 CT Lung nodules (Acute) Other bursitis of elbow, right elbow (Acute 01/02/21) Portal hypertension (Acute) Anemia (Chronic) Abscess of lung without pneumonia (Acute) 09[place] [facility] [place]. 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 L; then occurred on R side and now chronic Smalls's esophagus (Chronic) 10/17/2018 EGD ([facility]): esophageal mucosal changes classified as Smalls's stage C0-M1 per [place] criteria (also showed resolution of esophageal varices on carvedilol 6.25 mg BID) Tobacco use disorder (Chronic) 1.5- 2 PPD not interested in quitting 08/2020 Restless leg syndrome (Chronic) Alcohol use disorder (Chronic) not interested in quitting 08/2020 approx 48-60 oz of beer + hard liquor daily Sigmoid diverticulosis (Chronic 02/01/18) 02/01/2018 colonoscopy Incisional hernia, without obstruction or gangrene (Chronic 01/17/18) [facility] GI consult Hypertension (Chronic 08/01/14) Hyperlipidemia (Chronic 03/24/13) 11/2018 labs: good response to high potency statin, continue Hepatic cirrhosis (Chronic 01/14/18) [facility] GI 02/24/2018 Fibroscan: stage 4 liver fibrosis, consistent with cirrhosis with possible portal HTN 06/22/2018 EGD (Dr. 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 Hale Derm Aspiration pneumonia due to regurgitated food Basal cell carcinoma (BCC) Face C3 cervical fracture Closed fracture of left orbit Esophageal varices 06/22/2017 EGD (Dr. Hoang): grade 1 w/ stigmata of bleeding; 10/17/2018 EGD ([facility]): no evidence of esophageal or gastric varices on carvedilol 6.25 mg BID Family history of malignant melanoma ov note dated 05/10/20-Dr. Hale Femur fracture, left (~02/2021) Fracture of nasal bone GERD (gastroesophageal reflux disease) History of basal cell carcinoma Incontinence of feces Intertrochanteric fracture of left femur Malignant neoplasm of prostate Palliative care patient Periprosthetic fracture around internal prosthetic left hip joint Rotator cuff syndrome (03/24/13) S/p B/L repair Squamous cell carcinoma Face Surgical History H/O colonoscopy 05/17/20 at [facility] - no need for further to have any further colonscopy per report H/O endoscopy 05/17/20 [facility] History of esophagogastroduodenoscopy (EGD) (06/22/18) dr hoang, grade I esophageal varices Left shoulder (09/24/07) Marci Fundoplication (03/24/85) Prostatectomy (~05/2007) Repair of incision from Marci fundoplication (03/24/87) right shoulder (03/24/00) S/P skin biopsy (~09/2020) R inguinal fold on margins of scrotum-Dr Hale Family History Mother , resp failure due to COPD age 69 COPD (chronic obstructive pulmonary disease) Smoker Father , widespread cancer age 73 Personal history of malignant neoplasm prostate Malignant melanoma Smoker Prostate cancer COPD (chronic obstructive pulmonary disease) Son No problems noted. Daughter No problems noted. Brother , age 68 from COPD COPD (chronic obstructive pulmonary disease) Smoker Sister , age 62 from pancreatic cancer Smoker Pancreatic cancer Social History Smoking/Tobacco Use Status: Current every day Tobacco Type: cigarettes Tobacco: How many years used: 60 Quit status: not considering quitting Second Hand Exposure: No Counseling given: counseling >3 minutes Smoking risk assessment performed?: Yes Alcohol Intake: current Alcohol Intake frequency: 3 or more drinks per day Alcohol type: beer and hard liquor Counseling provided: other Drug use: Never Substance use type: does not use Counseling provided: provider counseling Caregiver/Support person: No Household members: none Housing: house Number of Children: 2 number of grandchildren: 3 Communication Needs: Corrective Lenses Education Level: high school Do you need help understanding health information?: Often 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; 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 Do you think of yourself as: straight/heterosexual Current gender identity: male What is your relationship status?: How often do you talk on the phone with friends or family?: once per week How often do you get together with friends or relatives?: once per week Panel score (0-1 are the most socially isolated patients): 0 What type of physical activity do you participate in: none Special tg needs: No Agree to transfusion: No Seatbelt use: always Water heater temp set <120 deg: Yes Working smoke detector in home: Yes Fire extinguisher in home: Yes Carbon monox detector in home: Yes Firearms in home: No Do you feel safe at home: Yes Do you feel safe in your relationship?: Yes Exam Narrative Exam Narrative: 1.Const: Well-nourished, Well-developed, appearing stated age 2.Eyes: PERRL, no conjunctival injection, and symmetrical lids. 3.ENT: Atraumatic external nose and ears. Moist MM. Neck: Symmetric, trachea midline, No thyromegaly. There is no evidence of raccoon eyes, zelaya sign, CSF rhinorrhea, mastoid tenderness, cranial crepitus, hemotympanum, exophthalmos, or hyphema. Patient demonstrates intact dentition with no signs of tooth avulsion or fracture, no signs of jaw deformity, no evidence of a LeFort's fracture, with an intact palate, nose and orbital region. There is no evidence of a nasal septal hematoma. No proptosis. Jaw closes symmetrically. Airway is clear. Patient does have a small curvilinear laceration on the top of his scalp. No depressions. No active bleeding currently. Laceration is roughly 2.5 cm in total. 4.CVS: +S1/S2, No murmurs or gallops. Peripheral pulses 2+ and equal in all extremities. Brisk capillary refill in all extremities. 5.RESP: Unlabored respiratory effort. Clear to auscultation bilaterally. No wheezes rales or rhonchi 6.GI: Soft, Nontender/Nondistended, No hepatosplenomegaly. No guarding or rebound. 7.MSK: Normocephalic, Extremities w/o deformity or ttp No cyanosis or clubbing, Normal movement of all extremities. Large skin tear of the patient's left gutierrez. Length is roughly 10 cm. No deep tissue involvement or deep structure involvement. Minimal oozing. Small skin tear just proximal to this. Notably superficial. 8.Skin: Please see ENT and muscular 9.Neuro: electrical parts reconditioner II-XII grossly intact. Sensation grossly intact, no focal neurologic deficits. 10.Psych: (AAO) x3. Appropriate mood and affect Course Vital Signs Vital signs: Vital Signs Temperature 36.3 C L 04/03/22 04:12 Pulse 89 04/03/22 04:12 Respiratory Rate 20 04/03/22 04:12 Blood Pressure 141/78 H 04/03/22 04:12 Pulse Oximetry 92 04/03/22 04:12 Temperature 36.3 C L 04/03/22 04:12 Temperature Source Tympanic 04/03/22 04:12 Pulse 89 04/03/22 04:12 Respiratory Rate 20 04/03/22 04:12 Respiratory Effort 04/03/22 04:17 Blood Pressure 141/78 H 04/03/22 04:12 Pulse Oximetry 92 04/03/22 04:12 Pain Level 4 04/03/22 04:12 Procedures Laceration Laceration 1: Site: scalp Size (cm): 2.5 Description: irregular Depth: simple, single layer Pre-repair: wound explored, irrigated extensively and deep structures intact Skin layer closed with: other (staple) Number of sutures: 3 Laceration 2: Site: lower extremity Side (If applicable): left Size (cm): 10 Description: linear Depth: simple, single layer Local Anesthetic: Lidocaine 1% and with Epi Amount of anesthesia used (mL): 3 Pre-repair: wound explored, irrigated extensively and deep structures intact Skin layer closed with: other (myah) Number of sutures: 9 Technique: simple, interrupted
--- NOTE | 2022-04-03 04:56 | DI.VRAD_ITS ---
PROCEDURE INFORMATION: Exam: CT Head Without Contrast Exam date and time: 04/03/2022 4:39 AM Age: 76 years old Clinical indication: Injury or trauma; Fall; Concussion/head injury; Consciousness not specified; Injury date: 04/03/22; Injury details: Fell, hit head, R/O bleed TECHNIQUE: Imaging protocol: Computed tomography of the head without contrast. Radiation optimization: All CT scans at this facility use at least one of these dose optimization techniques: automated exposure control; mA and/or kV adjustment per patient size (includes targeted exams where dose is matched to clinical indication); or iterative reconstruction. COMPARISON: CT HEAD CERVICAL SPINE WO 10/12/2021 12:03 PM FINDINGS: Brain: Diffuse sulcal enlargement is compatible with age-related cerebral volume loss. There is no intracranial hemorrhage, mass effect, midline shift, or extra-axial collection. Brar-white matter differentiation is preserved. There is no evidence of acute territorial infarct. There are tiny chronic lacunar infarcts in the left basal ganglia. Mild patchy periventricular and deep white matter hypoattenuation is nonspecific though most likely the sequela of underlying chronic microangiopathy in a patient of this age. Cerebral ventricles: Diffuse mild ventricular enlargement compatible with age-related cerebral volume loss. No hydrocephalus. Paranasal sinuses: Partial opacification of the right frontal sinus, not significantly changed. No air-fluid levels in the paranasal sinuses. Mastoid air cells: The mastoid air cells are clear bilaterally. Bones/joints: Unremarkable. No depressed calvarial fracture. Soft tissues: Minimal soft tissue swelling with overlying skin myah in the high left frontal scalp. Vasculature: Atherosclerotic vascular calcifications are noted at the skull base. IMPRESSION: 1. No acute intracranial abnormality. No intracranial hemorrhage or depressed calvarial fracture. 2. Stable chronic and incidental findings are discussed in the body of the report. Dictated and Authenticated by: Chanell Naik MD. Ordering:EILEEN Cox MD
[2022-04-03] MEDS: Hydrogen Peroxide 3% 480 ML BTL (05:21)
[2022-04-03] MEDS: Lidocaine/Epinephri/Tetracaine Topical Gel 3 ML (05:21)
== END 2022-04-03 05:22 | disposition home or self-care (01) ==
LOC: ER 05:22
PROVIDERS: Emergency Provider Student in an Organized Health Care Education/Training Program; PCP Nurse Practitioner Family
DX: S01.01XA Laceration without foreign body of scalp, initial encounter (principal); S81.812A Laceration without foreign body, left lower leg, initial encounter; F17.210 Nicotine dependence, cigarettes, uncomplicated; W19.XXXA Unspecified fall, initial encounter; W22.03XA Walked into furniture, initial encounter
CPT/HCPCS: 12004; 99284; 70450; 99282

== ENCOUNTER → 2022-06-05 13:34 | Outpatient (CLI) | payer MEDICARE, BC, SELFPAY ==
--- NOTE | 2022-06-05 10:00 | DI.RAD_ITS ---
Exam(s) XR TIB/FIB RT EXAM: XR TIB/FIB RT CLINICAL HISTORY: r/o fx M79.661 PAIN RT LOWER LEG. TECHNIQUE: 2D digital imaging was performed. COMPARISON: CR XR FEMUR LT from 05/19/2021 FINDINGS: Two views: No evidence fracture. Tibial plateau appears intact. No osseous lesions. No radiopaque foreign bod y. Some vascular calcification is noted. There appears to be narrowing of the lateral aspect of the ankle joint. IMPRESSION: DATA REPOSITORY: RADIATION DOSE DELIVERED:
== END ==
PROVIDERS: PCP Nurse Practitioner Family; Visit Provider Nurse Practitioner Family
DX: M79.661 Pain in right lower leg (principal)
CPT/HCPCS: 73590

== ENCOUNTER → 2022-07-10 00:40 | Outpatient (CLI) | payer MEDICARE, BC, SELFPAY ==
--- NOTE | 2022-07-10 07:30 | DI.US_ITS ---
Exam(s) US ABDOMEN LIMITED EXAM: US ABDOMEN LIMITED CLINICAL HISTORY: Liver cancer screening (hx cirrhosis) K74.60 TECHNIQUE: Ultrasound examination of the right upper quadrant was performed according to the usual p rotocol. COMPARISON: No exams were available for comparison FINDINGS: The liver is small with a nodular contour consistent with known diagnosis of cirrhosis. Hepatic pare nchyma shows heterogeneous echotexture. No focal lesion identified. Portal venous flow is hepatopetal. Note is made of cholelithiasis, no gallbladder wall thickening seen. Negative sonographic Figueroa sig n period No biliary dilatation. Unremarkable appearance of the pancreas. Right kidney appears normal with no hydronephrosis or nephrolithiasis. Abdominal aorta and IVC are of normal diameter. IMPRESSION: The appearance is consistent with hepatic cirrhosis with no focal hepatic lesion seen. Note is made of cholelithiasis . RADIATION DOSE DELIVERED: Total DLP
--- NOTE | 2022-07-10 14:58 | DI.DEXA_ITS ---
Exam(s) XR DEXA BONE DENSITY W/WO ROXANNA EXAM: XR DEXA BONE DENSITY W/WO ROXANNA CLINICAL HISTORY: hx multiple fx's r/o osteoporosis T07.XXXA Z13.820 S12.291A SCREENING TECHNIQUE: COMPARISON: CR XR HIP LT COMPLETE AP PELVIS from 07/17/2020 FINDINGS: DEXA scan was performed according to the usual protocol. Please see the accompanying data sheets. Findings for right hip scanning are T-score -3.3 with right femoral neck T-score -4.2. Lumbar spine scanning shows T-score -2.9. Left forearm scanning shows T-score -5.3. IMPRESSION: Measurements are consistent with osteoporosis according to the WHO criteria. Lateral vertebral scano gram shows no vertebral compression fracture. RADIATION DOSE DELIVERED: Total DLP
== END ==
PROVIDERS: PCP Nurse Practitioner Family; Visit Provider Nurse Practitioner Family
DX: K74.60 Unspecified cirrhosis of liver (principal); S12.291A Other nondisplaced fracture of third cervical vertebra, initial encounter for closed fracture; Z13.820 Encounter for screening for osteoporosis; M81.0 Age-related osteoporosis without current pathological fracture; K80.20 Calculus of gallbladder without cholecystitis without obstruction
CPT/HCPCS: 77080; 76705

== ENCOUNTER 2022-11-12 02:16 | Outpatient (CLI) | payer MEDICARE, BC, SELFPAY ==
[2022-11-12 08:48] LABS: Abs Immature Grans 0.04 10^3/uL (0.0-0.06); Absolute Basophil Count 0.06 10^3/uL (0.0-0.2); Absolute Eosinophil Count 0.14 10^3/uL (0.0-0.7); Absolute Lymphocyte Count 1.15 10^3/uL (1.2-3.4); Absolute Monocyte Count 0.79 10^3/uL (0.1-0.8); Absolute Neutrophil Count 5.95 10^3/uL (1.2-6.7); Basophils % 0.7; Eosinophils % 1.7; HCT 39.5 % (40.0-50.0); HGB 12.6 g/dL (13.5-17.5); Immature Grans % 0.5; Lymphocytes % 14.1; MCH 28.4 pg (27.0-33.0); MCHC 31.9 % (32.0-36.0); MCV 89 fL (80-95); MPV 8.3 fL (8.0-11.0); Monocytes % 9.7; Neutrophils % 73.3; Platelet Count 295 10^3/uL (130-400); RBC 4.43 10^6/uL (4.36-5.78); RDW 15.3 % (11.8-14.1); RDW-SD 50.2 fL; WBC 8.13 10^3/uL (4.4-10.8)
[2022-11-12 08:59] LABS: Prothrombin Time 10.4 sec (9.3-11.0)
[2022-11-12 09:10] LABS: ALT 25 U/L (16-63); AST 26 U/L (15-37); Albumin 3.8 g/dL (3.4-5.0); Alkaline Phosphatase 102 U/L (46-116); Anion Gap 7.7 mmol/L (3-11); BUN 22 mg/dL (7-18); Bilirubin, Total 0.5 mg/dL (0.2-1.0); CO2 30.3 mmol/L (21.0-32.0); Calcium 9.4 mg/dL (8.5-10.1); Calculated LDL 77 mg/dL (<100); Chloride 96 mmol/L (98-107); Cholesterol 159 mg/dL (<200); Glucose 105 mg/dL (74-106); HDL Cholesterol 74 mg/dL (40-60); Sodium 134 mmol/L (136-145); Total Protein 8.1 g/dL (6.4-8.2); Triglyceride 41 mg/dL (<150)
[2022-11-12 09:59] LABS: Vitamin D 25 Total 83.5 ng/mL (30-100)
== END 2022-11-12 02:17 | disposition home or self-care (01) ==
LOC: LBO 02:16
PROVIDERS: PCP Nurse Practitioner Family; Referring Provider Nurse Practitioner Family; Visit Provider Nurse Practitioner Family
DX: E78.5 Hyperlipidemia, unspecified (principal); E55.9 Vitamin D deficiency, unspecified; K70.30 Alcoholic cirrhosis of liver without ascites; K76.6 Portal hypertension
CPT/HCPCS: 36415; 80053; 80061; 82306; 85025; 85610

== ENCOUNTER 2023-03-09 02:27 | Outpatient (CLI) | payer MEDICARE, BC, SELFPAY ==
--- NOTE | 2023-03-09 07:45 | DI.CT_ITS ---
Exam(s) CT ABDOMEN PELVIS W EXAM: CT ABDOMEN PELVIS W CLINICAL HISTORY: ? malignancy or other cause, wt loss,copd,hepatic cirrhosis,r63.4,k70.30. TECHNIQUE: Imaging Protocol: Axial computed tomography images with coronal and sagittal reformatted images were created and reviewed CONTRAST MATERIAL: Intravenous: Omnipaque-350 100cc Oral: Yes. Oral contrast was administered for bowel opacification. COMPARISON: CT CT CHEST PE ABD PELVIS W from 08/08/2020 FINDINGS: VISUALIZED LUNG BASES: No nodules nor pleural effusions evident. Please note that the significant ab normality in the right lung seen on the CT scan of 08/08/2020 is above the level of the field of view of this abdominal CT scan. ABDOMEN: There is no ascites. Anterior abdominal wall hernia mesh again noted. However, there is an anterior abdominal wall midline hernia which contains nonobstructed and non edematous appearing small bowel l oops. There is a hiatal hernia versus is abnormal thickening of the lower esophagus. No obvious esophageal varices. LIVER: Liver appears cirrhotic and with some in homogeneous enhancement. No obvious distinct hepatic mass. No dilated intrahepatic ducts. GALLBLADDER/BILIARY: Is contracted. CBD diameter upper normal. PANCREAS: No evidence of pancreatic mass nor dilatation of the pancreatic duct. SPLEEN: Spleen is not enlarged. No obvious intrasplenic lesions. Splenic and portal veins are paten t. ADRENALS: Mild thickening of both adrenal glands noted. KIDNEYS:No cysts evident. No solid renal masses. No calculi nor hydronephrosis.. ABDOMINAL AORTA: Calcified. Diameter upper normal. No prominent aneurysms of the iliac vessels. LYMPH NODES:There is no retroperitoneal nor paraaortic adenopathy. ABDOMINAL WALL: Anterior abdominal hernia as described above. GI: There is no evidence of bowel obstruction, free air, nor abscess. PELVIS: GI: No evidence of appendicitis.Extensive sigmoid diverticulosis. No obvious acute diverticulitis. No free fluid. LYMPH NODES: There is no intrapelvic nor inguinal adenopathy. REPRODUCTIVE: Prostate not enlarged. Right-sided hydrocele noted. URINARY BLADDER: No obvious mass. No calculi. OSSEOUS: Left hip hardware. No acute fractures. No osseous lesions. IMPRESSION: 1. There is an anterior abdominal wall hernia mesh but there is an anterior abdominal wall hernia sac which contains multiple non edematous small bowel loops. There is no evidence of bowel obstruction, free air, abscess, nor ascites. 2. Moderate size hiatal hernia. Appears para esophageal. 3. In homogeneously enhancing cirrhotic appearing liver. No discrete hepatic mass identified. No sp lenomegaly. 4. Extensive sigmoid diverticulosis. No obvious acute diverticulitis. No evidence of appendicitis. Other findings as above. RADIATION DOSE DELIVERED: Total DLP DATA REPOSITORY: All CT scans at this facility are submitted to the National Radiology Data Registry (NRDR) Dose Index Registry (DIR) with the [employer] (ACR). RADIATION OPTIMIZATION: All CT scans at this facility use at least one of these dose optimization te chniques: automated exposure control; mA and/or kV adjustment per patient size (includes targeted exa ms where dose is matched to clinical indication); or iterative reconstruction.
--- NOTE | 2023-03-09 07:45 | DI.RAD_ITS ---
Exam(s) XR CHEST 2V PA LATERAL EXAM: XR CHEST 2V PA LATERAL CLINICAL HISTORY: COPD, wt loss,hepatic cirrhosis,r63.4,j44.9. TECHNIQUE: 2D digital imaging was performed. COMPARISON: CR,XR XR CHEST 1V IN DI DEPT from 02/15/2021 FINDINGS: 2 views: Heart size is normal. The mediastinum is not widened. Bilateral hyperinflation again noted. Unchanged scarring noted in the mid-lower right lung field. N o new infiltrates nor pleural effusions. No pneumothorax. No pulmonary edema. IMPRESSION: No acute pulmonary findings.Hyperinflation COPD findings again evident. DATA REPOSITORY: RADIATION DOSE DELIVERED:
[2023-03-09] MEDS: Barium Sulfate 2% W/V-Berry Smoothie 450 ML BTL PO (12:37)
[2023-03-09 13:01] LABS: Abs Immature Grans 0.05 10^3/uL (0.0-0.06); Absolute Basophil Count 0.04 10^3/uL (0.0-0.2); Absolute Eosinophil Count 0.09 10^3/uL (0.0-0.7); Absolute Lymphocyte Count 0.74 10^3/uL (1.2-3.4); Absolute Monocyte Count 0.72 10^3/uL (0.1-0.8); Absolute Neutrophil Count 5.78 10^3/uL (1.2-6.7); Basophils % 0.5; Eosinophils % 1.2; HCT 36.7 % (40.0-50.0); HGB 11.8 g/dL (13.5-17.5); Immature Grans % 0.7; MCH 27.8 pg (27.0-33.0); MCHC 32.2 % (32.0-36.0); MCV 86 fL (80-95); MPV 8.2 fL (8.0-11.0); Monocytes % 9.7; Neutrophils % 77.9; Platelet Count 279 10^3/uL (130-400); RBC 4.25 10^6/uL (4.36-5.78); RDW 14.6 % (11.8-14.1); RDW-SD 46.8 fL; WBC 7.42 10^3/uL (4.4-10.8)
[2023-03-09 13:23] LABS: ALT 22 U/L (16-63); AST 26 U/L (15-37); Albumin 3.6 g/dL (3.4-5.0); Alkaline Phosphatase 89 U/L (46-116); Anion Gap 4.7 mmol/L (3-11); BUN 23 mg/dL (7-18); Bilirubin, Direct 0.2 mg/dL (0.0-0.2); Bilirubin, Total 0.5 mg/dL (0.2-1.0); CO2 32.3 mmol/L (21.0-32.0); CREATININE 0.9 mg/dL (0.70-1.30); Calcium 9.1 mg/dL (8.5-10.1); Chloride 94 mmol/L (98-107); Estimated GFR 87.96 (mL/min/1.73m2); Glucose 100 mg/dL (74-106); Potassium 4.9 mmol/L (3.5-5.1); Sodium 131 mmol/L (136-145); Total Protein 7.5 g/dL (6.4-8.2)
[2023-03-09 13:24] LABS: Prothrombin Time 10.2 sec (9.3-11.0)
[2023-03-09] MEDS: Normal Saline - Diluent 50 ML VIAL IJ (14:54)
[2023-03-09] MEDS: Omnipaque 350 MG/ML 500 ML BTL-Imaging package 100 ML IJ (14:55)
== END 2023-03-09 02:47 ==
LOC: DI 02:28
PROVIDERS: PCP Nurse Practitioner Family; Visit Provider Emergency Medicine
DX: I87.8 Other specified disorders of veins (principal); J44.9 Chronic obstructive pulmonary disease, unspecified; R63.4 Abnormal weight loss; R91.8 Other nonspecific abnormal finding of lung field; K70.30 Alcoholic cirrhosis of liver without ascites
CPT/HCPCS: 80053; 80076; 71046; 74177; 85025; 85610

== ENCOUNTER → 2023-04-09 15:51 | Outpatient (CLI) | payer MEDICARE, BC, SELFPAY ==
--- NOTE | 2023-04-09 14:30 | DI.CTLCSR_ITS ---
Exam(s) CT CHEST LUNG CANCER SCREEN EXAM: CT CHEST LUNG CANCER SCREEN CLINICAL HISTORY: Screening for lung cancer, current smoker, F17.210 TECHNIQUE: Imaging Protocol: Axial computed tomography images with coronal and sagittal reformatted images were created and reviewed COMPARISON: CT CT CHEST WO from 07/28/2021 CR XR DEXA BONE DENSITY W/WO ROXANNA from 07/10/2022 CR XR CHEST 2V PA LATERAL from 03/09/[address] ABDOMEN PELVIS W from 03/09/2023 FINDINGS: Tracheobronchial tree: There is a small amount of fluid seen in the dependent portion of the trachea, left main stem bronchus and bronchus to the right lower lobe. Pulmonary parenchyma: Marked centrilobular emphysematous changes are present. There is a small infil trate with air bronchograms in the left lingula inferiorly. This appears stable compared to 07/28/20 21. No architectural distortion. Lung Nodules: There is an area of scarring in the right lung apex with associated calcifications. It appears unchanged compared to the examination from 07/28/2021. There is also stable scarring in the left lung apex. There is a 2-3 mm nodule in the periphery of the left lower lobe which appears stab le. There are no new pulmonary nodules or infiltrates present. Mediastinum and Sri: No dominant adenopathy or fluid collection. The esophagus is unremarkable. Thyroid gland: Unremarkable. Lymph nodes: Unremarkable. Pleura: No effusion or pneumothorax. Heart: The heart is not dilated. Mild coronary artery calcification is present. No pericardial effus ion. Aorta: Thoracic aorta non-dilated.Atherosclerosis is present. Upper abdomen: Unremarkable. Soft Tissues: Unremarkable. Bones: Within normal limits. There is a new compression deformity of T9 with loss of approximately 30 percent of the height of the vertebral body. There is no retropulsion. There is sclerosis of the v ertebral body which may represent a subacute or chronic fracture deformity. This was not present on the DEXA scan from 07/10/2022. It is present on the chest x-ray from 03/09/2023. IMPRESSION: 1. Stable pulmonary nodule. No new pulmonary nodules. 2. Pulmonary emphysema and bilateral pulmonary scarring which appears stable compared to the chest CT from 2020. 3. Small secretions seen in the airway. 4. Vxgm-dh-abrebvfs compression deformity of T9 which has been present since 03/09/2023. Lung RADS Cat 2 - Benign Appearance / Behavior: Nodules with a very low likelihood of becoming a clin ically active cancer due to size or lack of growth Lung-RADS 1.0 CATEGORIES: Category 0 - Prior chest CT exam(s) being located for comparison. Category 1 - Annual screening in 12 months. No nodules or definitely benign nodules. Category 2 - Annual screening in 12 months. Benign appearance. Nodules with low likelihood of becomin g active cancer. Category 3 - 6-month follow-up. Probably benign. Short-term follow-up suggested. Nodules with low lik elihood of becoming active cancer. Category 4A - 3-month follow-up and CT/PET if >8 mm in size. Suspicious finding. Findings which requi re additional testing. Category 4B - Findings which require additional testing and tissue sampling. Suspicious finding. Category 4X - Category 3 or 4 nodules with additional features or imaging findings that increases the suspicion of malignancy. Modifier S- Potentially clinically significant finding. (Non lung cancer) RADIATION DOSE DELIVERED: 79.01mGy.cm Total DLP 79.01mGy.cmTotal DLP DATA REPOSITORY: All CT scans at this facility are submitted to the National Radiology Data Registry (NRDR) Dose Index Registry (DIR) with the [employer] (ACR). RADIATION OPTIMIZATION: All CT scans at this facility use at least one of these dose optimization te chniques: automated exposure control; mA and/or kV adjustment per patient size (includes targeted exa ms where dose is matched to clinical indication); or iterative reconstruction.
== END ==
PROVIDERS: PCP Nurse Practitioner Family; Visit Provider Physician Assistant Surgical
DX: F17.210 Nicotine dependence, cigarettes, uncomplicated (principal); Z12.2 Encounter for screening for malignant neoplasm of respiratory organs; R91.1 Solitary pulmonary nodule
CPT/HCPCS: 71271

== ENCOUNTER → 2023-05-20 02:37 | Outpatient (CLI) | payer MEDICARE, BC, SELFPAY ==
--- NOTE | 2023-05-20 08:00 | DI.US_ITS ---
Exam(s) US CAROTID EXAM: US CAROTID CLINICAL HISTORY: Possible L sided TIA,g45.9,rt handed male,. TECHNIQUE: Ultrasound carotids performed using grayscale, color-flow, and spectral Doppler imaging. COMPARISON: None. FINDINGS: CAROTID ARTERIES: Both common carotid arteries are patent without significant plaque. The left carotid bulb exhibits both calcified and noncalcified plaque, without elevated velocities at nor distal to this level. Plaque is also evident in the proximal left ICA. No elevated velocities. Ratios are slightly elevated on the left side. Stenosis estimated as moderate(50-69 percent) on th e left side; less than 50 percent on the right side. VERTEBRAL ARTERIES: Antegrade flow was demonstrated in both vertebral arteries Measurements: R Bulb: 31.4cm/s PS / 10.2cm/s ED R CCA: 64.1cm/s PS / 20.5cm/s ED R ECA: 34.7cm/s PS / 7.7cm/s ED R ICA Prox: 59.8cm/s PS / 16cm/s ED R ICA Mid: 30.9cm/s PS / 14.9cm/s ED R ICA Distal: 45.4cm/s PS /12cm/s ED R Vert: 68.7cm/s PS / 19.7cm/s ED R SVR: 0.9 R DVR: 0.8 L Bulb: 78.7cm/s PS / 21.9cm/s ED L CCA: PS / 16.7cm/s ED L ECA: 77.5cm/s PS / 27cm/s ED L ICA Prox: 70.9cm/s PS / 23.2cm/s ED L ICA Mid: 56.2cm/s PS / 12.1cm/s ED L ICA Distal: 100.2cm/s PS / 41.8cm/s ED L Vert: 48.9cm/s PS / 18.3cm/s ED L SVR: 1.3 L DVR: 2.5 IMPRESSION: There is bilateral plaque at the carotid bulbs-proximal ICAs, somewhat more prominent on the left yanick e. Estimated stenosis on the left side is 50-69 % and less than 50 % no cysts on the right side. Antegrade flow was demonstrated in both vertebral arteries. Criteria for Carotid Stenosis: Normal: ICA PSV <125 cm/s no plaque or intimal thickening is visible. <50% stenosis: ICA PSV <125 cm/s and plaque or intimal thickening is visible. 50-69% stenosis: ICA PSV is 125-250 cm/s and plaque is visible. >70% stenosis to near occlusion: ICA PSV >250 cm/s with visible plaque and luminal narrowing. DATA REPOSITORY:
--- NOTE | 2023-05-20 08:00 | DI.MRI_ITS ---
Exam(s) MR ANGIO BRAIN WO EXAM: MR ANGIO BRAIN WO CLINICAL HISTORY: R handed male, poss transient Wernicke aphasia,transient ischemic attack, TECHNIQUE: Performed on a 1.5 leatha unit with [id number] sequence. Field of view is from the skull base up. COMPARISON: CT CT HEAD WO from 04/03/2022 No recent conventional brain MRI available at the time of this MRA interpretation. FINDINGS: MAGNETIC RESONANCE ANGIOGRAPHY OF THE BRAIN: ANTERIOR CIRCULATION: The internal carotid arteries are patent in the skull base-carotid canals as well as within the jake nous sinuses. The supraclinoid aspects of both internal carotid arteries are patent and nonaneurysma l. Both A1 segments are patent as are both anterior cerebral arteries and there is no aneurysm at th e level of the anterior communicating artery. Both middle cerebral arteries are patent without significant filling defects nor significant stenosis . No aneurysm seen in these vessels. POSTERIOR CIRCULATION: At the skull base both vertebral arteries are patent and both vertebral arteries contribute to the fo rmation of the basilar artery. The basilar artery ascends in the midline with normal diameter and wi thout significant stenosis nor dissection. Distally gives off superior cerebellar arteries and above this level terminates as patent bilateral posterior cerebral arteries. There is a thin posterior co mmunicating artery on the right side of the pvybzp-st-Fnvbtn. There is no aneurysm at the tip of the basilar artery nor elsewhere in the bbraqa-eh-Wutceu. IMPRESSION: 1. Intracranial arteries. No evidence of intraluminal thrombus nor dissection. 2. No aneurysm seen. Please note that this is a MRA only study; there are no diffusion or other conventional sequences. T here are no other recent brain imaging studies in our PACS. Most recent brain imaging study is a bra in CT scan of March 2022. DATA REPOSITORY:
== END ==
PROVIDERS: PCP Nurse Practitioner Family; Visit Provider Family Medicine
DX: I65.22 Occlusion and stenosis of left carotid artery (principal)
CPT/HCPCS: 70544; 93880

== ENCOUNTER → 2023-06-11 00:10 | Outpatient (CLI) | payer MEDICARE, BC, SELFPAY ==
--- NOTE | 2023-06-11 07:30 | DI.US_ITS ---
APPROVED REPORT EXAM: Comprehensive 2D, Doppler, and color-flow Echocardiogram Patient Location: Out-Patient Retention Specialist: Tim Marte RDCS (AE) Indications: TIA Other Information Study Quality: Technically Limited. Technically limited study due to body habitus, patient scanned up right in wheelchair. Conclusion Technically limited and suboptimal study Normal left ventricular chamber size wall thickness and systolic function Normal right ventricular systolic function and size Both atria are normal in size Within the limits of the study, no structural or hemodynamically significant valvular abnormalities a re identified Wall motion Left Ventricle The left ventricle is grossly normal size. Technically limited exam due to body habitus. Patient scan kay upright in wheelchair. The left ventricular systolic function is normal. The left ventricular eje ction fraction is within the normal range. There is normal LV segmental wall motion. There is no vent ricular septal defect visualized. LVEF is 57%. Right Ventricle The right ventricle is normal size. Right ventricular systolic function is grossly normal. Unable to assess PA pressure. Atria The left atrium size is normal. The right atrium size is normal. The interatrial septum is intact wit h no evidence for an atrial septal defect. Aortic Valve The aortic valve is grossly normal in structure. There is no aortic valvular stenosis. No aortic regu rgitation is present. Mitral Valve The mitral valve is grossly normal in structure. No evidence of mitral valve stenosis. There is no mi tral valve regurgitation noted. Tricuspid Valve The tricuspid valve is normal in structure. There is no tricuspid valve stenosis. Trace tricuspid reg urgitation. Pulmonic Valve Pulmonic valve is not well visualized. Great Vessels Aortic root is not well visualized. Ascending aorta is not well visualized. Aortic arch is not well v isualized. The IVC was not visualized. Pericardium There is no pericardial effusion. Auto EF LV EDV A4C 53.3 mL LV EDV A2C 66.4 mL LV EDV BP 59.5 mL LV ESV A4C 23.1 mL LV ESV A2C 28.9 mL LV ESV BP 26.3 mL LVEF(%) A4C 56.7 % LVEF(%) A2C 56.5 % LVEF(%) BP 55.8 % LV SV A4C 30.2 ml LV SV A2C 37.5 ml LV SV BP 33.2 ml LV CO A4C 2.0 L/min LV CO A2C 2.0 L/min LV CO BP 2.0 L/min HR A4C 64.52 BPM HR A2C 53.89 BPM LV EDV Index (BP) LA Volume LA Length A4C 2.2 cm LA Length A2C LA Area A4C s 4.68 cm2 LA Area A2C s LA Vol A4C A-L 8.46 mL LA Vol A2C A-L LA Vol Biplane A-L LA Vol A4C MOD 7.7 mL LA Vol A2C MOD LA Vol BP MOD RA Volume RA Area A4C 7.7 cm2 RA ESV A4C (A-L) 16.8mL RA Vol/BSA A4C A-L RA Length A4C 3.0 cm RA ESV A4C (MOD) 15.9mL LV Diastology MV E Vmax 0.55 (0.4-1.3 m/s) MV A Vmax 0.75 (0.4-1.3 m/s) E/A Ratio 0.7 Aortic Valve AoV Vmax 0.75 m/s LVOT Vmax 0.63 m/s AoV Peak Grad 2.2 mmHg LVOT Peak Grad 1.6 mmHg AoV VTI 0.188 m LVOT VTI 0.149 m AoV Mean Mando. 0.54 m/s LVOT Mean Grad 0.7 mmHg AoV Mean Grad 1.3 mmHg Velocity Ratio 0.84 Mitral Valve MV DT 352 (160-240 msec)
== END ==
PROVIDERS: PCP Nurse Practitioner Family; Visit Provider Family Medicine
DX: G45.9 Transient cerebral ischemic attack, unspecified (principal)
CPT/HCPCS: 93306

== ENCOUNTER 2023-07-16 13:29 | Emergency (ER) | payer MEDICARE, BC, SELFPAY ==
[2023-07-16] VITALS (20 sets, daily range): BP systolic 81–122; BP diastolic 40–64; PULSE 56–90; RESP 14–27; TEMP 36.7; O2SAT 74–98
--- NOTE | 2023-07-16 13:45 | DI.RAD_ITS ---
Exam(s) XR SHOULDER RT COMPLETE 2+V EXAM: XR SHOULDER RT COMPLETE 2+V CLINICAL HISTORY: Fall, Shoulder Pain. TECHNIQUE: 2D digital imaging was performed of the right shoulder. Four images were obtained. AP, Grashey, Y-view and axillary views were obtained. COMPARISON: No exams were available for comparison FINDINGS: BONES: No acute fracture is present. No bony destructive lesion is seen. JOINTS: No dislocation present. Degenerative changes are seen at the glenohumeral joint. SOFT TISSUE: The visualized lung is clear. IMPRESSION: No acute fracture or dislocation. DATA REPOSITORY: RADIATION DOSE DELIVERED:
--- NOTE | 2023-07-16 13:45 | DI.RAD_ITS ---
Exam(s) XR CHEST 2V PA LATERAL EXAM: XR CHEST 2V PA LATERAL CLINICAL HISTORY: Cough, Fall TECHNIQUE: 2D digital imaging was performed of the chest. Three images were obtained. PA and later al views were obtained. COMPARISON: CR XR CHEST 2V PA LATERAL from 03/09/2023 FINDINGS: MEDIASTINUM: Normal. HEART: Normal. PULMONARY VASCULATURE: Normal. LUNGS: The lungs are hyperinflated suggesting underlying COPD. No focal consolidating infiltrates ar e seen. PLEURAL SPACE: No pleural effusion or pneumothorax. BONE:Within normal limits for the patient's age. The bones are osteopenic. OTHER FINDINGS:Normal. IMPRESSION: No acute pulmonary findings. DATA REPOSITORY: RADIATION DOSE DELIVERED:
--- NOTE | 2023-07-16 13:45 | DI.RAD_ITS ---
Exam(s) XR HIP RT COMPLETE AP PELVIS EXAM: XR HIP RT COMPLETE AP PELVIS CLINICAL HISTORY: Fall. TECHNIQUE: 2D digital imaging was performed of the right hip. Two images were obtained. AP pelvis a nd lateral right hip views were obtained. COMPARISON: No exams were available for comparison FINDINGS: Examination is technically limited due to overexposure. BONES: No acute fracture is present. There is an intramedullary nail and néstor in the left femur. No bony destructive lesion is seen. JOINTS: No dislocation present. Degenerative changes are seen in the lumbar spine. SOFT TISSUE: Atherosclerosis is present. IMPRESSION: No definite acute fracture or dislocation is seen. DATA REPOSITORY: RADIATION DOSE DELIVERED:
--- NOTE | 2023-07-16 13:50 | W.ED.GENAD ---
Discharge Plan Disposition Patient Disposition: Home Discharge Details Clinical Impression: Acute pain of right shoulder, At risk for falls, Protein calorie malnutrition, Frequent falls, Chronic obstructive lung disease, Hepatic cirrhosis Primary Care Provider: Asher Jeter ED Provider: Masha Valera Home Meds and New Rx's Prescriptions: Continued acetaminophen 500 mg tablet 1,000 mg PO BID PRN albuterol sulfate 90 mcg/actuation HFA aerosol inhaler 1 - 2 puff inhalation Q4H PRN (Reason: shortness of breath or wheezing) Qty: 1 3RF Rx Instructions: Dispense brand of albuterol inhaler covered by patient's insurance Ensure Original 0.04-1.05 gram-kcal/mL liquid 237 ml PO TID Qty: 270 3RF thiamine mononitrate (vit B1) [Vitamin B-1 (mononitrate)] 100 mg tablet 100 mg PO DAILY Qty: 90 3RF cholecalciferol (vitamin D3) 25 mcg (1,000 unit) tablet 50 mcg PO DAILY methocarbamol 500 mg tablet 500 mg PO Q6H PRN (Reason: muscle spasm) atorvastatin 40 mg tablet 40 mg PO DAILY Qty: 90 3RF carvedilol 6.25 mg tablet 6.25 mg PO BID Qty: 180 3RF Rx Instructions: Administer with food pantoprazole 40 mg tablet,delayed release (DR/EC) See Rx Instructions .ROUTE .COMPLEX Qty: 90 3RF Dose Instruction: TAKE 1 TABLET BY MOUTH EVERY MORNING 30 TO 60 MINUTES BEFORE FIRST MEAL OF THE DAY ON AN EMPTY STOMACH Rx Instructions: TAKE 1 TABLET BY MOUTH EVERY MORNING 30 TO 60 MINUTES BEFORE FIRST MEAL OF THE DAY ON AN EMPTY STOMACH spironolactone 50 mg tablet 100 mg PO DAILY Qty: 180 3RF furosemide [Lasix] 20 mg tablet 20 mg PO QAM Qty: 90 3RF cyanocobalamin (vitamin B-12) [Vitamin B-12] 500 mcg Tablet 1,000 mcg PO DAILY Qty: 0 0RF No Action budesonide-formoterol [Symbicort] 160-4.5 mcg/actuation HFA aerosol inhaler 2 puff inhalation BID Qty: 3 3RF Discharge Instructions Instructions: COPD (Chronic Obstructive Pulmonary Disease) (ED), Shoulder Pain (ED) Additional Instructions: please follow-up with pcp in 1-2 days for reassessment continue with prescribed medications use your walker with ambulation return earlier with new or worsening complaints Referrals: Asher Jeter DO [Primary Care Provider] - Discharge Data Discharge Date/Time-TO BE ENTERED AT DEPARTURE: 07/16/23 17:03 Medical Decision Making <Maureen Hernandez NP - Last Filed: 07/20/23 12:17> 77-year-old male with past medical history of cirrhosis, squamous cell carcinoma, GERD chronic alcoholism, chronic edema who appears very frail and chronically ill, presents to the ER with a chief complaint of fall last night around 10 PM. He was unable to get up after the fall and called the fire department who helped him up into a chair. He normally gets around home with a walker. He is here for right shoulder pain. He denies any chest pain, he does endorse shortness of breath he does have a productive junky cough, he is a chronic smoker. He denies any fever chills or problems urinating. Upon arrival he does have 3+ pitting edema to his bilateral lower extremities worse on the right with weeping. No obvious deformity noted to shoulder, chest abd, pelvis, However he does have some ecchymosis noted to his right posterior shoulder. No midline C-spine T-spine or L-spine tenderness with palpation no crepitus no step-off. CXR ordered, CBC, CMP, BNP, and chest x-ray, L-spine pelvis, and right Shoulder XR. Considered CT imaging, however patient A&Ox3 and denies headache or LOC, Patient reports EMS was on scene last night and helped him into chair after fall. CBC shows mild leukocytosis with a left shift, BNP slightly elevated at 617, 20 mg Furosemide ordered. Differential Dx includes Cellulitis, CHF exacerbation, COPD exacerabation, right shoulder fracture. 1601: Informed by staff counselor that O2 sat is dropping into the 80s his blood pressure is 100 systolic, DuoNeb ordered. Instructed ED staff counselor to adjust sat probe. Will consider admission. Care to be handed off to SEBASTIÁN George pending disposition. Case and patient details discussed. This text was generated using Pingeration system, please disregard any oddities of phrase or misspellings. Patient was reassessed after acceptance at 1600, he is alert and oriented, he appears very chronically ill His oxygenation is 95% after his neb and he states he feels like he is at his baseline except for his right shoulder pain His x-rays were reviewed per radiology interpretation and do not show evidence of acute abnormality While I would like to evaluate patient and give fluid bolus in the emergency department and monitor oxygenation, he is adamantly refusing to stay any longer He is aware he is leaving against medical recommendation Patient would like to be discharged home, his daughter is coming to visit and he does not want to stay any longer in the hospital He is discharged home alert, oriented, of decisional capacity at his reported baseline Blood pressure at time of discharge home was 105/40, this seems to be patient's reported baseline Medical Records Medical records reviewed: Yes I reviewed the patient's medical records. Lab Data Lab results reviewed: Yes I reviewed the patient's lab results. Labs: Laboratory Tests Range/Units 07/16/23 13:53 WBC (4.4-10.8) 10^3/uL 13.87 H RBC (4.36-5.78) 10^6/uL 3.74 L Hgb (13.5-17.5) g/dL 10.5 L Hct (40.0-50.0) % 33.1 L MCV (80-95) fL 89 MCH (27.0-33.0) pg 28.1 MCHC (32.0-36.0) % 31.7 L RDW (11.8-14.1) % 16.0 H Plt Count (130-400) 10^3/uL 225 MPV (8.0-11.0) fL 8.8 Immature Gran % 0.5 Neutrophils % 90.0 Lymphocytes % 3.4 Monocytes % 5.4 Eosinophils % 0.3 Basophils % 0.4 Nucleated RBC % (0.0-0.3) % 0.0 Absolute Neutrophils (1.2-6.7) 10^3/uL 12.48 H Absolute Lymphocytes (1.2-3.4) 10^3/uL 0.47 L Absolute Monocytes (0.1-0.8) 10^3/uL 0.75 Absolute Eosinophils (0.0-0.7) 10^3/uL 0.04 Absolute Basophils (0.0-0.2) 10^3/uL 0.06 Sodium (136-145) mmol/L 139 Potassium (3.5-5.1) mmol/L 4.3 Chloride (98-107) mmol/L 101 Carbon Dioxide (21.0-32.0) mmol/L 28.9 Anion Gap (3-11) mmol/L 9.1 BUN (7-18) mg/dL 37 H Creatinine (0.70-1.30) mg/dL 1.2 Est GFR (CKD-EPI 2020) (mL/min/1.73m2) 62.29 Glucose (74-106) mg/dL 110 H Calcium (8.5-10.1) mg/dL 8.9 Magnesium (1.8-2.4) mg/dL 1.9 Total Bilirubin (0.2-1.0) mg/dL 0.5 AST (15-37) U/L 31 ALT (16-63) U/L 31 Alkaline Phosphatase (46-116) U/L 149 H NT-Pro-B Natriuret Pep (<300) pg/mL 614 H Total Protein (6.4-8.2) g/dL 7.3 Albumin (3.4-5.0) g/dL 3.1 L <SEBASTIÁN George - Last Filed: 07/16/23 19:45> 77-year-old male with past medical history of cirrhosis, squamous cell carcinoma, GERD chronic alcoholism, chronic edema who appears very frail presents to the ER with a chief complaint of fall last night around 10 PM. He was unable to get up after the fall and called the fire department who helped him up into a chair. He normally gets around home with a walker. He is here for right shoulder pain. He denies any chest pain, he does endorse shortness of breath he does have a productive junky cough he is a chronic smoker. He denies any fever chills or problems urinating. Upon arrival he does have 3+ pitting edema to his bilateral lower extremities worse on the right with weeping. No obvious deformity does have some ecchymosis noted to his right posterior shoulder. No midline C-spine T-spine or L-spine tenderness with palpation no crepitus no step-off. 1601: Informed by staff counselor that O2 sat is dropping into the 80s his blood pressure is 100 systolic, DuoNeb ordered. Will consider admission. Care to be handed off to SEBASTIÁN George pending disposition. Patient was reassessed after acceptance at 1600, he is alert and oriented, he appears very chronically ill His oxygenation is 95% after his neb and he states he feels like he is at his baseline except for his right shoulder pain His x-rays were reviewed per radiology interpretation and do not show evidence of acute abnormality While I would like to evaluate patient and give fluid bolus in the emergency department and monitor oxygenation, he is adamantly refusing to stay any longer He is aware he is leaving against medical recommendation Patient would like to be discharged home, his daughter is coming to visit and he does not want to stay any longer in the hospital He is discharged home alert, oriented, of decisional capacity at his reported baseline Blood pressure at time of discharge home was 105/40, this seems to be patient's reported baseline HPI <Maureen Hernandez NP - Last Filed: 07/20/23 12:17> General Mode of arrival: wheelchair. Date/Time Provider Initiated Documentation: 07/16/23 13:48. Limitations to Documentation: physical limitation ([place]). Information obtained by: patient, family, RN notes reviewed and old records reviewed. HPI Narrative: 77-year-old male with past medical history of cirrhosis, squamous cell carcinoma, GERD chronic alcoholism, chronic edema who appears very frail presents to the ER with a chief complaint of fall last night around 10 PM. He was unable to get up after the fall and called the fire department who helped him up into a chair. He normally gets around home with a walker. He is here for right shoulder pain. He denies any chest pain, he does endorse shortness of breath he does have a productive junky cough he is a chronic smoker. He denies any fever chills or problems urinating. Upon arrival he does have 3+ pitting edema to his bilateral lower extremities worse on the right with weeping. No obvious deformity does have some ecchymosis noted to his right posterior shoulder. No midline C-spine T-spine or L-spine tenderness with palpation no crepitus no step-off. Related Data Home Medications Medication Instructions Recorded Confirmed cyanocobalamin (vitamin B-12) 500 1,000 mcg (2 x 500 mcg) PO DAILY 06/18/20 07/20/23 mcg tablet (Vitamin B-12) #0 tabs thiamine mononitrate (vit B1) 100 100 mg PO DAILY #90 tabs 08/26/20 07/20/23 mg tablet (Vitamin B-1 (mononitrate)) acetaminophen 500 mg tablet 1,000 mg PO BID PRN 04/04/21 07/20/23 cholecalciferol (vitamin D3) 25 50 mcg PO DAILY 04/04/21 07/20/23 mcg (1,000 unit) tablet methocarbamol 500 mg tablet 500 mg PO Q6H PRN muscle spasm 04/04/21 07/20/23 atorvastatin 40 mg tablet 40 mg PO DAILY #90 tab-caps 06/24/22 07/20/23 carvedilol 6.25 mg tablet 6.25 mg PO BID esophageal varices 09/24/22 07/20/23 #180 tabs food supplemt, lactose-reduced 237 ml PO TID #270 units 10/08/22 07/20/23 0.04 gram-1.05 kcal/mL oral liquid (Ensure Original) pantoprazole 40 mg tablet,delayed See Rx Instructions .Route 10/14/22 07/20/23 release .COMPLEX #90 tabs spironolactone 50 mg tablet 100 mg (2 x 50 mg) PO DAILY #180 11/18/22 07/20/23 tabs furosemide 20 mg tablet (Lasix) 20 mg PO QAM cirrhosis #90 tabs 01/15/23 07/20/23 albuterol sulfate 90 mcg/actuation 1 - 2 puff inhalation Q4H PRN 02/12/23 07/20/23 aerosol inhaler shortness of breath or wheezing #1 unit budesonide-formoterol HFA 160 2 puff inhalation BID #3 units 07/20/23 07/20/23 mcg-4.5 mcg/actuation aerosol inhaler (Symbicort) Previous Rx's Medication Instructions Recorded cyanocobalamin (vitamin B-12) 500 1,000 mcg (2 x 500 mcg) PO DAILY 06/18/20 mcg tablet (Vitamin B-12) #0 tabs thiamine mononitrate (vit B1) 100 100 mg PO DAILY #90 tabs 08/26/20 mg tablet (Vitamin B-1 (mononitrate)) atorvastatin 40 mg tablet 40 mg PO DAILY #90 tab-caps 06/24/22 carvedilol 6.25 mg tablet 6.25 mg PO BID esophageal varices 09/24/22 #180 tabs food supplemt, lactose-reduced 237 ml PO TID #270 units 10/08/22 0.04 gram-1.05 kcal/mL oral liquid (Ensure Original) pantoprazole 40 mg tablet,delayed See Rx Instructions .Route 10/14/22 release .COMPLEX #90 tabs spironolactone 50 mg tablet 100 mg (2 x 50 mg) PO DAILY #180 11/18/22 tabs furosemide 20 mg tablet (Lasix) 20 mg PO QAM cirrhosis #90 tabs 01/15/23 albuterol sulfate 90 mcg/actuation 1 - 2 puff inhalation Q4H PRN 02/12/23 aerosol inhaler shortness of breath or wheezing #1 unit budesonide-formoterol HFA 160 2 puff inhalation BID #3 units 07/20/23 mcg-4.5 mcg/actuation aerosol inhaler (Symbicort) Allergies Allergy/AdvReac Type Severity Reaction Status Date / Time No Known Allergies Allergy Verified 07/20/23 08:48 General Stated Complaint: GenMedical JAMEE: 3 Review of Systems <Maureen Hernandez NP - Last Filed: 07/20/23 12:17> All systems reviewed & are unremarkable except as noted in HPI and below Constitutional Constitutional: Reports as per HPI, Reports frequent falls, Reports lethargy and Reports poor appetite ENT Ears, Nose, Mouth, and Throat: Denies dizziness Cardiovascular Cardiovascular: Denies chest pain, Denies chest pain at rest, Denies syncope, Reports leg edema (Bilateral Chronic) and Reports dyspnea (Chronic) Respiratory Respiratory: Reports chest congestion, Reports cough and Reports dyspnea (Chronic) Gastrointestinal Gastrointestinal: Denies abdominal pain, Denies diarrhea, Denies nausea and Denies vomiting Genitourinary Genitourinary: Reports as per HPI (Denies), Denies dysuria and Denies flank pain Musculoskeletal Musculoskeletal: Reports as per HPI, Reports atrophy, Denies deformity, Reports arthralgias (Right shoulder), Reports limited range of motion (Back, Hips) and Reports stiffness Integumentary/Breasts Skin/Breast: Reports as per HPI Neurologic Neurologic: Denies confusion, Denies dizziness, Denies syncope and Reports frequent falls Psychiatric Psychiatric: Denies confusion PFSH <Maureen Hernandez NP - Last Filed: 07/20/23 12:17> All Active Problems (Updated 07/20/23 @ 09:38 by Asher Jeter DO) Muscular deconditioning (Acute) Acute pain of right shoulder (Acute) Need for home health care (Acute) Frequent falls (Acute) Palliative care patient (Acute) Advance care planning (Acute) Unexplained weight loss (Acute) Osteoporosis (Chronic) Protein calorie malnutrition (Acute) Venous stasis (Acute) Onychomycosis (Acute) At risk for falls (Acute) Inflamed seborrheic keratosis (Acute) Right wrist tendonitis (Acute) Hiatal hernia (Chronic) Noted on 01/17/2021 CT Lung nodules (Acute) Portal hypertension (Acute) Anemia (Chronic) Frailty syndrome in geriatric patient (Chronic) Dysphagia (Chronic) 10/17/2018 EGD ([facility]): Smalls's & interval resolution of esophageal varices seen on previous EGD (see Smalls's dx comments for details); 06/06/2019 Barium Swallow: some dysmotility & aspiration --> referred to Speech Therapy 04/12/20 [facility] Esophageal Manometry; 05/17/2020 EGD: Grade I esophageal varices, duodenal erosions w/o bleeding, no obstructive cause for dysphagia Smalls's esophagus (Chronic) 10/17/2018 EGD ([facility]): esophageal mucosal changes classified as Smalls's stage C0-M1 per [place] criteria (also showed resolution of esophageal varices on carvedilol 6.25 mg BID) Tobacco use disorder (Chronic) 1.5- 2 PPD not interested in quitting 08/2020 Restless leg syndrome (Chronic) Alcohol use disorder (Chronic) not interested in quitting 08/2020 approx 48-60 oz of beer + hard liquor daily Sigmoid diverticulosis (Chronic 02/01/18) 02/01/2018 colonoscopy Incisional hernia, without obstruction or gangrene (Chronic 01/17/18) [facility] GI consult Hypertension (Chronic 08/01/14) Hyperlipidemia (Chronic 03/24/13) 11/2018 labs: good response to high potency statin, continue Hepatic cirrhosis (Chronic 01/14/18) [facility] GI 02/24/2018 Fibroscan: stage 4 liver fibrosis, consistent with cirrhosis with possible portal HTN 06/22/2018 EGD (Dr. Cheney): confirmed portal HTN with grade 1 esophageal varices Sodium restriction 2000 mg for ascites control Gastroesophageal reflux disease (Chronic 03/15/13) HH surgery 08/1990 Chronic obstructive lung disease (Chronic 03/15/13) 09/06/2020 PFTs ([facility]): moderate-severe (FEV1 50-59%) Bilateral lower extremity edema (Chronic 01/14/18) Related to cirrhosis BPH w urinary obs/LUTS (Chronic 03/10/13) Rectosphincteric dyssynergia (Chronic) Manifested as fecal incontinence and constipation; resolved with daily fiber supplementation Medical History Femur fracture, left (~02/2021) Other bursitis of elbow, right elbow (01/02/21) Aspiration pneumonia due to regurgitated food Closed fracture of left orbit Fracture of nasal bone Periprosthetic fracture around internal prosthetic left hip joint C3 cervical fracture Intertrochanteric fracture of left femur Family history of malignant melanoma ov note dated 05/10/20-Dr. Hale Squamous cell carcinoma Face Basal cell carcinoma (BCC) Face Hydrocele of testis (03/24/13) S/p repair L; then occurred on R side and now chronic Rotator cuff syndrome (03/24/13) S/p B/L repair Esophageal varices 06/22/2017 EGD (Dr. 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 Hale Derm Surgical History S/P skin biopsy (~09/2020) R inguinal fold on margins of scrotum-Dr Hale H/O endoscopy 05/17/20 [facility] H/O colonoscopy 05/17/20 at [facility] - no need for further to have any further colonscopy per report History of esophagogastroduodenoscopy (EGD) (06/22/18) dr cheney, grade I esophageal varices right shoulder (03/24/00) Repair of incision from Marci fundoplication (03/24/87) Prostatectomy (~05/2007) Marci Fundoplication (03/24/85) Left shoulder (09/24/07) Family History Mother , resp failure due to COPD age 69 COPD (chronic obstructive pulmonary disease) Smoker Father , widespread cancer age 73 Personal history of malignant neoplasm prostate Malignant melanoma Smoker Prostate cancer COPD (chronic obstructive pulmonary disease) Son No problems noted. Daughter No problems noted. Brother , age 68 from COPD COPD (chronic obstructive pulmonary disease) Smoker Sister , age 62 from pancreatic cancer Smoker Pancreatic cancer Social History Smoking/Tobacco Use Status: Current every day Tobacco Type: cigarettes Tobacco: How many years used: 60 Quit status: has quit before Second Hand Exposure: No Counseling given: counseling >3 minutes Smoking risk assessment performed?: Yes Alcohol Intake: current Alcohol Intake frequency: 3 or more drinks per day Alcohol type: beer and hard liquor Counseling provided: other Drug use: Never Substance use type: does not use Counseling provided: provider counseling Caregiver/Support person: No Household members: none Housing: house Number of Children: 2 number of grandchildren: 3 Communication Needs: Corrective Lenses Education Level: high school Do you need help understanding health information?: Often 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; 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 Do you think of yourself as: straight/heterosexual Current gender identity: male What is your relationship status?: How often do you talk on the phone with friends or family?: once per week How often do you get together with friends or relatives?: once per week Panel score (0-1 are the most socially isolated patients): 0 What type of physical activity do you participate in: none Special tg needs: No Agree to transfusion: No Seatbelt use: always Water heater temp set <120 deg: Yes Working smoke detector in home: Yes Fire extinguisher in home: Yes Carbon monox detector in home: Yes Firearms in home: No Do you feel safe at home: Yes Do you feel safe in your relationship?: Yes Exam <Maureen Hernandez NP - Last Filed: 07/20/23 12:17> Narrative Exam Narrative: General: Patient appears chronically ill, frail, slightly cachectic, does have a friend here who is assisting him by wheelchair, Awake and Alert, conversant. Skin: Cool and Dry HEENT: Head: No palpable deformities, Normocephalic Eyes: Pupils PERRLA, EOM's intact. No periorbital eccymosis or step off Ears: Canal patent. Tympanic membranes are clear . No zelaya's sign, no hemptympanum. Nose/Face: Atraumatic. Facial bones nontender to palpation and stable with manipulation. Mouth/Throat: No intraoral trauma. Teeth and mandible are intact. Does have some dark-colored substance around his mouth which he reports is chocolate no obvious bleeding noted, no signs of trauma intraorally. Neck: No midline tenderness, no step off, no deformity to palpation of C-spine. Trachea midline. Does have some chronic kyphosis noted. Chest: No surface trauma. Nontender without crepitus or deformity. Lungs clear to ausculatation bilaterally. Heart: RRR, no rubs, murmurs or gallop. Abdomen: No abrasions, ecchymosis, or surface trauma. Nondistended. Nontender to palpation no guarding, rebound, or rigidity. Pelvis: Nontender to palpation and stable to compression. Femoral pulses strong and equal. Patient is able to stand pivot onto stretcher with minimal assistance. Upon moving in the stretcher it is noted that he does have some crepitus to his lower spine and mild tenderness. Extremities: Ecchymosis noted to his right posterior shoulder. Sensation intact. Peripheral pulses intact and equal. Bilateral lower extremities show 3+ pitting edema, weeping on the right noted to the anterior gutierrez. Neuro: ANO x4, GCS 15, cranial nerves II through XII intact. Motor and sensory exam nonfocal. Reflexes are symmetric. Course <Maureen Hernandez NP - Last Filed: 07/20/23 12:17> Vital Signs Vital signs: Vital Signs Temperature 36.7 C 07/16/23 13:38 Pulse 77 07/16/23 13:38 Respiratory Rate 16 07/16/23 13:38 Blood Pressure 101/63 07/16/23 13:38 Pulse Oximetry 93 07/16/23 13:38 Temperature 36.7 C 07/16/23 13:38 Temperature Source Skin 07/16/23 13:38 Pulse 77 1201/23 13:38 Respiratory Rate 16 07/16/23 13:38 Respiratory Effort Short of Breath 07/16/23 13:43 Blood Pressure 101/63 07/16/23 13:38 Blood Pressure Position Supine 07/16/23 13:38 Pulse Oximetry 93 07/16/23 13:38 Oxygen Delivery Method Room Air 07/16/23 13:38 Oxygen Flow Rate 0 07/16/23 13:38 Sign Out <Maureen Hernandez NP - Last Filed: 07/20/23 12:17> Sign Out Data: Sign Out Comment: Signed out pending XR-ray results and dispo. Most likely ok to be discharged home with friend, Suspect cellulitis RLE, and CHF exacerbation. Given lasix 20mg and Ceftriaxone 1gm IVPB Last updated by Maureen Hernandez NP at 07/16/23 15:47
[2023-07-16 14:00] LABS: Abs Immature Grans 0.07 10^3/uL (0.0-0.06); Absolute Eosinophil Count 0.04 10^3/uL (0.0-0.7); Absolute Lymphocyte Count 0.47 10^3/uL (1.2-3.4); Absolute Monocyte Count 0.75 10^3/uL (0.1-0.8); Basophils % 0.4; Eosinophils % 0.3; HCT 33.1 % (40.0-50.0); HGB 10.5 g/dL (13.5-17.5); Immature Grans % 0.5; Lymphocytes % 3.4; MCH 28.1 pg (27.0-33.0); MCHC 31.7 % (32.0-36.0); MCV 89 fL (80-95); MPV 8.8 fL (8.0-11.0); Monocytes % 5.4; Platelet Count 225 10^3/uL (130-400); RBC 3.74 10^6/uL (4.36-5.78); RDW-SD 51.4 fL; WBC 13.87 10^3/uL (4.4-10.8)
[2023-07-16 14:11] LABS: Absolute Basophil Count 0.06 10^3/uL (0.0-0.2); Absolute Neutrophil Count 12.48 10^3/uL (1.2-6.7)
[2023-07-16 14:21] LABS: ALT 31 U/L (16-63); AST 31 U/L (15-37); Albumin 3.1 g/dL (3.4-5.0); Alkaline Phosphatase 149 U/L (46-116); Anion Gap 9.1 mmol/L (3-11); BUN 37 mg/dL (7-18); Bilirubin, Total 0.5 mg/dL (0.2-1.0); CO2 28.9 mmol/L (21.0-32.0); CREATININE 1.2 mg/dL (0.70-1.30); Calcium 8.9 mg/dL (8.5-10.1); Chloride 101 mmol/L (98-107); Estimated GFR 62.29 (mL/min/1.73m2); Glucose 110 mg/dL (74-106); Magnesium 1.9 mg/dL (1.8-2.4); NT-proBNP 614 pg/mL (<300); Potassium 4.3 mmol/L (3.5-5.1); Sodium 139 mmol/L (136-145); Total Protein 7.3 g/dL (6.4-8.2)
[2023-07-16] MEDS: cefTRIAXone 1 GM/50 ML BAG IVPB (14:58)
[2023-07-16] MEDS: Furosemide 20 MG/2 ML VIAL IVP (14:58)
[2023-07-16] MEDS: Albuterol/Ipratropium 3 ML UPD VIAL UPD (16:10)
== END 2023-07-16 17:03 | disposition home or self-care (01) ==
PROVIDERS: Registered Nurse Emergency; Emergency Provider Physician Assistant; PCP Family Medicine
DX: M25.511 Pain in right shoulder (principal); Z91.81 History of falling; E46 Unspecified protein-calorie malnutrition; J44.9 Chronic obstructive pulmonary disease, unspecified; K74.60 Unspecified cirrhosis of liver; F17.210 Nicotine dependence, cigarettes, uncomplicated
CPT/HCPCS: 80053; 96365; 96375; 99283; 71046; 73030; 73502; 83735; 83880; 85025; J0696; J1941; J7620

== ENCOUNTER 2023-07-23 13:54 | Inpatient (IN) | payer MEDICARE, BC, SELFPAY ==
[2023-07-23] VITALS (170 sets, daily range): BP systolic 76–136; BP diastolic 35–99; PULSE 0–108; RESP 9–30; TEMP 37.2; O2SAT 83–100
--- NOTE | 2023-07-23 13:45 | RT.EKG_ITS ---
APPROVED REPORT Exam: Resting ECG Reason for Exam: Bradycardia Patient Location: E HR:71 bpm ECG Measurements Heart Rate 71 AXIS LA 163 P 91 QRSd 149 QRS 90 QT 448 T 95 QTc 489 Conclusion Sinus rhythm...normal P axis, V-rate 60- 99 Left atrial enlargement...P, P'>60mS, <-0.15mV V1 RBBB and LPFB...QRSd >120mS, axis(90,210)
[2023-07-23 14:33] LABS: Absolute Lymphocyte Count 0.54 10^3/uL (1.2-3.4); Absolute Monocyte Count 1.02 10^3/uL (0.1-0.8); Basophils % 0.2; Eosinophils % 0.2; HCT 36.5 % (40.0-50.0); HGB 11.4 g/dL (13.5-17.5); Immature Grans % 2.4; Lymphocytes % 4.3; MCH 28.4 pg (27.0-33.0); MCHC 31.2 % (32.0-36.0); MCV 91 fL (80-95); Monocytes % 8.2; Neutrophils % 84.7; Platelet Count 287 10^3/uL (130-400); RBC 4.02 10^6/uL (4.36-5.78); RDW 17.2 % (11.8-14.1); RDW-SD 52.5 fL; WBC 12.46 10^3/uL (4.4-10.8)
[2023-07-23 14:36] LABS: Absolute Basophil Count 0.02 10^3/uL (0.0-0.2); Absolute Eosinophil Count 0.02 10^3/uL (0.0-0.7); Absolute Neutrophil Count 10.55 10^3/uL (1.2-6.7)
[2023-07-23 14:50] LABS: ALT 32 U/L (16-63); AST 33 U/L (15-37); Albumin 3.1 g/dL (3.4-5.0); Alkaline Phosphatase 150 U/L (46-116); BUN 36 mg/dL (7-18); Bilirubin, Total 0.7 mg/dL (0.2-1.0); Calcium 9.4 mg/dL (8.5-10.1); Chloride 103 mmol/L (98-107); Estimated GFR 77.52 (mL/min/1.73m2); Glucose 104 mg/dL (74-106); Magnesium 2.4 mg/dL (1.8-2.4); Potassium 4.5 mmol/L (3.5-5.1); Sodium 139 mmol/L (136-145); Total Protein 7.5 g/dL (6.4-8.2); Troponin I < 50 ng/L (<or=60)
--- NOTE | 2023-07-23 15:00 | DI.CT_ITS ---
Exam(s) CT HEAD CERVICAL SPINE WO EXAM: CT HEAD CERVICAL SPINE WO CLINICAL HISTORY: altered, fall. TECHNIQUE: Imaging Protocol: Axial computed tomography images with coronal and sagittal reformatted images were created and reviewed COMPARISON: CT CT HEAD WO from 04/03/2022 MR MR ANGIO BRAIN WO from 05/20/[address] UPPER EXTREMITY RT WO from 07/23/2023 FINDINGS: BRAIN: There are no skull fractures nor fluid in the visualized paranasal sinuses. There is no evidence of intracranial hemorrhage, mass effect, or shift of midline structures. There are no extra-axial fluid collections. The ventricles are not enlarged or shifted and there is no blo od within the ventricular system nor within the basal cisterns. There is abnormal hypodensity in the right side of the doug, previously present. This may be exagger ated by head tilt here but may considerations for infarct. There is some bilateral periventricular h ypodensity again noted consistent with chronic small vessel disease. CERVICAL SPINE: Scarring in the right lung apex noted There is no evidence of fracture nor listhesis. No significant prevertebral soft tissue swelling. Multilevel facet arthropathy noted. No facet malalignment. Some mild disc space narrowing is noted. No listhesis. There is no significant facet joint malalignment. No significant osseous lesions evident. IMPRESSION: Abnormal area of hypodensity in the right-side of the doug-probable infarct. No hemorrhage.Consider MRI with diffusion imaging. No evidence of cervical spine fracture, malalignment, nor acute compromise of the cervical spinal can al. Called by myself to ER physician. RADIATION DOSE DELIVERED: Total DLP DATA REPOSITORY: All CT scans at this facility are submitted to the National Radiology Data Registry (NRDR) Dose Index Registry (DIR) with the [employer] (ACR). RADIATION OPTIMIZATION: All CT scans at this facility use at least one of these dose optimization te chniques: automated exposure control; mA and/or kV adjustment per patient size (includes targeted exa ms where dose is matched to clinical indication); or iterative reconstruction.
--- NOTE | 2023-07-23 15:00 | DI.CT_ITS ---
Exam(s) CT CHEST W EXAM: CT CHEST W CLINICAL HISTORY: hypoxia, fall. TECHNIQUE: Multi planar reconstructions were performed. CONTRAST MATERIAL: Omnipaque 350; 75 cc COMPARISON: CT CT CHEST LUNG CANCER SCREEN from 04/09/2023 FINDINGS: CHEST: LUNGS: Previously described biapical lung scarring is again noted, again noted be more prominent on t he right side and superimposed upon COPD findings. There is some mild increased markings in the righ t lower lobe, probably atelectasis. There is also slight thickening of the right major fissure. The re is no dependent pleural effusion. No new findings in the opposite-left lung. No pleural effusion on the left side. No new ominous pulmonary nodules. Secretions are noted in the mid trachea, zain a, and proximal mainstem bronchi. MEDIASTINUM: There is no hilar nor mediastinal adenopathy. Visualized thyroid unremarkable. CARDIAC: Heart size is normal. There is no pericardial effusion.Caliber of the thoracic aorta is wit hin normal limits. No evidence of dissection. Mom VISUALIZED UPPER ABDOMEN:There are no significant adrenal masses. OSSEOUS: Anterior dislocation of the right shoulder glenohumeral joint. Left glenohumeral joint unre markable. Mid level compression fracture of thoracic vertebra but this is unchanged from prior CT sc an of 04/09/2023. IMPRESSION: 1. Mild increased markings in the right lung base and thickening of the right major fissure probably indicating some fluid therein. There is no layering pleural effusion on either side. No new left kristy ng findings. 2. Right shoulder glenohumeral joint dislocation. RADIATION DOSE DELIVERED: Total DLP DATA REPOSITORY: All CT scans at this facility are submitted to the National Radiology Data Registry (NRDR) Dose Index Registry (DIR) with the [employer] (ACR). RADIATION OPTIMIZATION: All CT scans at this facility use at least one of these dose optimization te chniques: automated exposure control; mA and/or kV adjustment per patient size (includes targeted exa ms where dose is matched to clinical indication); or iterative reconstruction.
--- NOTE | 2023-07-23 15:00 | DI.CT_ITS ---
Exam(s) CT UPPER EXTREMITY RT WO EXAM: CT UPPER EXTREMITY RT WO CLINICAL HISTORY: fall, right shoulder pain. TECHNIQUE: Imaging Protocol: Axial computed tomography images with coronal and sagittal reformatted images were created and reviewed. COMPARISON: CR XR SHOULDER RT COMPLETE 2+V from 07/16/2023 FINDINGS: There is patient motion artifact. Bones: There is an anterior dislocation of the humeral head relative to the glenoid with a depressed fracture of the posterior aspect of the humeral head. No other humeral fracture is identified. The re is a healing fracture involving the posterior lateral aspect of the right 8th rib. Old healed rig ht rib fractures are also noted. There are degenerative changes seen at the acromioclavicular and gl enohumeral joints. Soft tissue calcifications are present. No cellulitic or osteomyelitic changes a re identified. No lytic or sclerotic lesions are identified. Soft Tissues: Marked emphysematous changes are seen in the lungs. Please refer to the CT scan of the chest for complete details on the lung findings. IMPRESSION: 1. Anterior dislocation of the right glenohumeral joint with a fracture involving the posterior aspec t of the humeral head. 2. Findings were discussed with Masha Vlaera at 4:22 p.m. on 07/23/2023. RADIATION DOSE DELIVERED: Total DLP Total DLP DATA REPOSITORY: All CT scans at this facility are submitted to the National Radiology Data Registry (NRDR) Dose Index Registry (DIR) with the [employer] (ACR). RADIATION OPTIMIZATION: All CT scans at this facility use at least one of these dose optimization te chniques: automated exposure control; mA and/or kV adjustment per patient size (includes targeted exa ms where dose is matched to clinical indication); or iterative reconstruction.
[2023-07-23] MEDS: Lactated Ringers 500 ML 1000 ML IV (15:05)
--- NOTE | 2023-07-23 15:22 | W.ED.GENAD ---
Discharge Plan Discharge Details Chief Complaint: Fall/Non TraumaCriteria Primary Care Provider: Asher Jeter ED Provider: Martin Hess Home Meds and New Rx's Prescriptions: No Action acetaminophen 500 mg tablet 1,000 mg PO BID PRN albuterol sulfate 90 mcg/actuation HFA aerosol inhaler 1 - 2 puff inhalation Q4H PRN (Reason: shortness of breath or wheezing) Qty: 1 3RF Rx Instructions: Dispense brand of albuterol inhaler covered by patient's insurance budesonide-formoterol [Symbicort] 160-4.5 mcg/actuation HFA aerosol inhaler 2 puff inhalation BID Qty: 3 3RF Ensure Original 0.04-1.05 gram-kcal/mL liquid 237 ml PO TID Qty: 270 3RF thiamine mononitrate (vit B1) [Vitamin B-1 (mononitrate)] 100 mg tablet 100 mg PO DAILY Qty: 90 3RF cholecalciferol (vitamin D3) 25 mcg (1,000 unit) tablet 50 mcg PO DAILY methocarbamol 500 mg tablet 500 mg PO Q6H PRN (Reason: muscle spasm) atorvastatin 40 mg tablet 40 mg PO DAILY Qty: 90 3RF carvedilol 6.25 mg tablet 6.25 mg PO BID Qty: 180 3RF Rx Instructions: Administer with food pantoprazole 40 mg tablet,delayed release (DR/EC) See Rx Instructions .ROUTE .COMPLEX Qty: 90 3RF Dose Instruction: TAKE 1 TABLET BY MOUTH EVERY MORNING 30 TO 60 MINUTES BEFORE FIRST MEAL OF THE DAY ON AN EMPTY STOMACH Rx Instructions: TAKE 1 TABLET BY MOUTH EVERY MORNING 30 TO 60 MINUTES BEFORE FIRST MEAL OF THE DAY ON AN EMPTY STOMACH spironolactone 50 mg tablet 100 mg PO DAILY Qty: 180 3RF furosemide [Lasix] 20 mg tablet 20 mg PO QAM Qty: 90 3RF cyanocobalamin (vitamin B-12) [Vitamin B-12] 500 mcg Tablet 1,000 mcg PO DAILY Qty: 0 0RF Medical Decision Making 77-year-old male with multiple medical problems including history of COPD, not on home oxygen, cirrhosis, malnutrition, fell 3 days ago and injured his right shoulder, seen here in the emergency department had nondiagnostic workup, returns today with persistent right shoulder pain, severe generalized weakness, failing to thrive at home. Patient hypoxic on room air saturating in the 70s to 80s with poor waveform. Patient was placed on nasal cannula oxygen and saturations dramatically improved. I am concerned about acute respiratory failure given review of medical record?patient had been saturating in the upper 90s on room air at pulmonary visit in March. Consider acute humerus fracture not visualized on x-ray. Plan to obtain CT scan of the right upper extremity. Chest x-ray performed 07/16/2023 did not show infiltrate. Worsening respiratory function concerning for potential infectious etiology. I will obtain CT of the chest to assess for pneumonia. Patient hypotensive. Patient is severely dehydrated. I will give IV fluid bolus and plan to reassess. Initial labs reviewed: Leukocytosis noted. Chronic anemia noted. No significant electrolyte abnormalities. Albumin is low. Care signed out to SE[facility] Valera[facility] with plan to follow-up on diagnostic imaging and pending labs including urinalysis and VBG. Plan to reassess patient for disposition. I suspect he will benefit from hospitalization given severe malnutrition, dehydration, frequent falls and acute respiratory failure requiring oxygen. Lab Data Lab results reviewed: Yes I reviewed the patient's lab results. Labs: Laboratory Tests Range/Units 07/23/23 07/23/23 14:15 15:55 WBC (4.4-10.8) 10^3/uL 12.46 H RBC (4.36-5.78) 10^6/uL 4.02 L Hgb (13.5-17.5) g/dL 11.4 L Hct (40.0-50.0) % 36.5 L MCV (80-95) fL 91 MCH (27.0-33.0) pg 28.4 MCHC (32.0-36.0) % 31.2 L RDW (11.8-14.1) % 17.2 H Plt Count (130-400) 10^3/uL 287 MPV (8.0-11.0) fL 9.0 Immature Gran % 2.4 Neutrophils % 84.7 Lymphocytes % 4.3 Monocytes % 8.2 Eosinophils % 0.2 Basophils % 0.2 Nucleated RBC % (0.0-0.3) % 0.0 Absolute Neutrophils (1.2-6.7) 10^3/uL 10.55 H Absolute Lymphocytes (1.2-3.4) 10^3/uL 0.54 L Absolute Monocytes (0.1-0.8) 10^3/uL 1.02 H Absolute Eosinophils (0.0-0.7) 10^3/uL 0.02 Absolute Basophils (0.0-0.2) 10^3/uL 0.02 VBG pH (7.31-7.41) 7.35 VBG pCO2 (41-51) mmHg 51 VBG pO2 mmHg 41 VBG HCO3 (23-28) mmol/L 28 VBG Total CO2 (24-29) mmol/L 27 VBG O2 Saturation % 70 VBG Base Excess (-2-3) mmol/L 2 Sodium (136-145) mmol/L 139 Potassium (3.5-5.1) mmol/L 4.5 Chloride (98-107) mmol/L 103 Carbon Dioxide (21.0-32.0) mmol/L 29.0 Anion Gap (3-11) mmol/L 7.0 BUN (7-18) mg/dL 36 H Creatinine (0.70-1.30) mg/dL 1.0 Est GFR (CKD-EPI 2020) (mL/min/1.73m2) 77.52 Glucose (74-106) mg/dL 104 Calcium (8.5-10.1) mg/dL 9.4 Magnesium (1.8-2.4) mg/dL 2.4 Total Bilirubin (0.2-1.0) mg/dL 0.7 AST (15-37) U/L 33 ALT (16-63) U/L 32 Alkaline Phosphatase (46-116) U/L 150 H Troponin I (<or=60) ng/L < 50 Total Protein (6.4-8.2) g/dL 7.5 Albumin (3.4-5.0) g/dL 3.1 L TSH (0.36-3.74) uIU/mL 2.80 HPI General Mode of arrival: ambulatory. Date/Time Provider Initiated Documentation: 07/23/23 14:00. Limitations to Documentation: no limitations. Information obtained by: patient. HPI Narrative: 77yo male with multiple medical problems including COPD, emphysema, hepatic cirrhosis, muscular deconditioning and malnutrition, here with chief complaint of right shoulder pain. Patient's son checks in on him daily by video conference and was concerned that he had not moved from a chair for more than 12 hours today. History and review of systems is somewhat limited secondary to altered mental status. Patient does note moderate to severe pain of the right shoulder that is worse with any movement. Patient apparently had a fall 3 days ago, was seen here in the ER and had shoulder x-rays which were nondiagnostic. He denies recurrent injury. Related Data Home Medications Medication Instructions Recorded Confirmed cyanocobalamin (vitamin B-12) 500 1,000 mcg (2 x 500 mcg) PO DAILY 06/18/20 07/20/23 mcg tablet (Vitamin B-12) #0 tabs thiamine mononitrate (vit B1) 100 100 mg PO DAILY #90 tabs 08/26/20 07/20/23 mg tablet (Vitamin B-1 (mononitrate)) acetaminophen 500 mg tablet 1,000 mg PO BID PRN 04/04/21 07/20/23 cholecalciferol (vitamin D3) 25 50 mcg PO DAILY 04/04/21 07/20/23 mcg (1,000 unit) tablet methocarbamol 500 mg tablet 500 mg PO Q6H PRN muscle spasm 04/04/21 07/20/23 atorvastatin 40 mg tablet 40 mg PO DAILY #90 tab-caps 06/24/22 07/20/23 carvedilol 6.25 mg tablet 6.25 mg PO BID esophageal varices 09/24/22 07/20/23 #180 tabs food supplemt, lactose-reduced 237 ml PO TID #270 units 10/08/22 07/20/23 0.04 gram-1.05 kcal/mL oral liquid (Ensure Original) pantoprazole 40 mg tablet,delayed See Rx Instructions .Route 10/14/22 07/20/23 release .COMPLEX #90 tabs spironolactone 50 mg tablet 100 mg (2 x 50 mg) PO DAILY #180 11/18/22 07/20/23 tabs furosemide 20 mg tablet (Lasix) 20 mg PO QAM cirrhosis #90 tabs 01/15/23 07/20/23 albuterol sulfate 90 mcg/actuation 1 - 2 puff inhalation Q4H PRN 02/12/23 07/20/23 aerosol inhaler shortness of breath or wheezing #1 unit budesonide-formoterol HFA 160 2 puff inhalation BID #3 units 07/20/23 07/20/23 mcg-4.5 mcg/actuation aerosol inhaler (Symbicort) Previous Rx's Medication Instructions Recorded cyanocobalamin (vitamin B-12) 500 1,000 mcg (2 x 500 mcg) PO DAILY 06/18/20 mcg tablet (Vitamin B-12) #0 tabs thiamine mononitrate (vit B1) 100 100 mg PO DAILY #90 tabs 08/26/20 mg tablet (Vitamin B-1 (mononitrate)) atorvastatin 40 mg tablet 40 mg PO DAILY #90 tab-caps 06/24/22 carvedilol 6.25 mg tablet 6.25 mg PO BID esophageal varices 09/24/22 #180 tabs food supplemt, lactose-reduced 237 ml PO TID #270 units 10/08/22 0.04 gram-1.05 kcal/mL oral liquid (Ensure Original) pantoprazole 40 mg tablet,delayed See Rx Instructions .Route 10/14/22 release .COMPLEX #90 tabs spironolactone 50 mg tablet 100 mg (2 x 50 mg) PO DAILY #180 11/18/22 tabs furosemide 20 mg tablet (Lasix) 20 mg PO QAM cirrhosis #90 tabs 01/15/23 albuterol sulfate 90 mcg/actuation 1 - 2 puff inhalation Q4H PRN 02/12/23 aerosol inhaler shortness of breath or wheezing #1 unit budesonide-formoterol HFA 160 2 puff inhalation BID #3 units 07/20/23 mcg-4.5 mcg/actuation aerosol inhaler (Symbicort) Allergies Allergy/AdvReac Type Severity Reaction Status Date / Time No Known Allergies Allergy Verified 07/20/23 08:48 General Stated Complaint: Fall/Non TraumaCriteria JAMEE: 3 Review of Systems Narrative: Limited secondary to altered mental status, see HPI Constitutional Constitutional: Reports weakness Cardiovascular Cardiovascular: Denies chest pain Respiratory Respiratory: Reports cough Neurologic Neurologic: Reports weakness PFSH All Active Problems Encounter for hospice care (Acute) Muscular deconditioning (Acute) Acute pain of right shoulder (Acute) Need for home health care (Acute) Frequent falls (Acute) Palliative care patient (Acute) Advance care planning (Acute) Unexplained weight loss (Acute) Osteoporosis (Chronic) Protein calorie malnutrition (Acute) Venous stasis (Acute) Onychomycosis (Acute) At risk for falls (Acute) Inflamed seborrheic keratosis (Acute) Right wrist tendonitis (Acute) Hiatal hernia (Chronic) Noted on 01/17/2021 CT Lung nodules (Acute) Portal hypertension (Acute) Anemia (Chronic) Frailty syndrome in geriatric patient (Chronic) Dysphagia (Chronic) 10/17/2018 EGD ([facility] [place]): Smalls's & interval resolution of esophageal varices seen on previous EGD (see Smalls's dx comments for details); 06/06/2019 Barium Swallow: some dysmotility & aspiration --> referred to Speech Therapy 04/12/20 [facility] Esophageal Manometry; 05/17/2020 EGD: Grade I esophageal varices, duodenal erosions w/o bleeding, no obstructive cause for dysphagia Smalls's esophagus (Chronic) 10/17/2018 EGD ([facility] [place]): esophageal mucosal changes classified as Smalls's stage C0-M1 per [place] criteria (also showed resolution of esophageal varices on carvedilol 6.25 mg BID) Tobacco use disorder (Chronic) 1.5- 2 PPD not interested in quitting 08/2020 Restless leg syndrome (Chronic) Alcohol use disorder (Chronic) not interested in quitting 08/2020 approx 48-60 oz of beer + hard liquor daily Sigmoid diverticulosis (Chronic 02/01/18) 02/01/2018 colonoscopy Incisional hernia, without obstruction or gangrene (Chronic 01/17/18) [facility] GI consult Hypertension (Chronic 08/01/14) Hyperlipidemia (Chronic 03/24/13) 11/2018 labs: good response to high potency statin, continue Hepatic cirrhosis (Chronic 01/14/18) [facility] GI 02/24/2018 Fibroscan: stage 4 liver fibrosis, consistent with cirrhosis with possible portal HTN 06/22/2018 EGD (Dr. Hoang): confirmed portal HTN with grade 1 esophageal varices Sodium restriction 2000 mg for ascites control Gastroesophageal reflux disease (Chronic 03/15/13) HH surgery 08/1990 Chronic obstructive lung disease (Chronic 03/15/13) 09/06/2020 PFTs ([facility]): moderate-severe (FEV1 50-59%) Bilateral lower extremity edema (Chronic 01/14/18) Related to cirrhosis BPH w urinary obs/LUTS (Chronic 03/10/13) Rectosphincteric dyssynergia (Chronic) Manifested as fecal incontinence and constipation; resolved with daily fiber supplementation Medical History Femur fracture, left (~02/2021) Other bursitis of elbow, right elbow (01/02/21) Aspiration pneumonia due to regurgitated food Closed fracture of left orbit Fracture of nasal bone Periprosthetic fracture around internal prosthetic left hip joint C3 cervical fracture Intertrochanteric fracture of left femur Family history of malignant melanoma ov note dated 05/10/20-Dr. Hale Squamous cell carcinoma Face Basal cell carcinoma (BCC) Face Hydrocele of testis (03/24/13) S/p repair L; then occurred on R side and now chronic Rotator cuff syndrome (03/24/13) S/p B/L repair Esophageal varices 06/22/2017 EGD (Dr. 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 Hale Derm Surgical History S/P skin biopsy (~09/2020) R inguinal fold on margins of scrotum-Dr Hale H/O endoscopy 05/17/20 [facility] H/O colonoscopy 05/17/20 at [facility] - no need for further to have any further colonscopy per report History of esophagogastroduodenoscopy (EGD) (06/22/18) dr hoang, grade I esophageal varices right shoulder (03/24/00) Repair of incision from Marci fundoplication (03/24/87) Prostatectomy (~05/2007) Marci Fundoplication (03/24/85) Left shoulder (09/24/07) Family History Mother , resp failure due to COPD age 69 COPD (chronic obstructive pulmonary disease) Smoker Father , widespread cancer age 73 Personal history of malignant neoplasm prostate Malignant melanoma Smoker Prostate cancer COPD (chronic obstructive pulmonary disease) Son No problems noted. Daughter No problems noted. Brother , age 68 from COPD COPD (chronic obstructive pulmonary disease) Smoker Sister , age 62 from pancreatic cancer Smoker Pancreatic cancer Social History Smoking/Tobacco Use Status: Current every day Tobacco Type: cigarettes Tobacco: How many years used: 60 Quit status: has quit before Second Hand Exposure: No Counseling given: counseling >3 minutes Smoking risk assessment performed?: Yes Alcohol Intake: current Alcohol Intake frequency: 3 or more drinks per day Alcohol type: beer and hard liquor Counseling provided: other Drug use: Never Substance use type: does not use Counseling provided: provider counseling Caregiver/Support person: No Household members: none Housing: house Number of Children: 2 number of grandchildren: 3 Communication Needs: Corrective Lenses Education Level: high school Do you need help understanding health information?: Often 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; 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 Do you think of yourself as: straight/heterosexual Current gender identity: male What is your relationship status?: How often do you talk on the phone with friends or family?: once per week How often do you get together with friends or relatives?: once per week Panel score (0-1 are the most socially isolated patients): 0 What type of physical activity do you participate in: none Special tg needs: No Agree to transfusion: No Seatbelt use: always Water heater temp set <120 deg: Yes Working smoke detector in home: Yes Fire extinguisher in home: Yes Carbon monox detector in home: Yes Firearms in home: No Do you feel safe at home: Yes Do you feel safe in your relationship?: Yes Additional Social history: lives at home alone [place] 07/23/23 Exam Const General: not healthy appearing and lethargic Nutritional Appearance: cachectic and malnourished HENMT Mouth: mucous membranes dry Eyes Conjunctivae: normal conjunctivae Sclera: normal sclerae Neck Neck: trachea midline Resp Auscultation: rhonchi and no wheezes Cardio Rate: regular rate and not tachycardic Rhythm: abnormal rhythm irregularly irregular GI Palpation: soft, not firm, no guarding, no masses, not rigid and nontender Back/Spine/Pelvis Other: Grade 1 sacral decubitus skin breakdown Skin General skin exam: no rashes or lesions noted Neuro Cognition: abnormal cognition Other: Patient lethargic, able to arouse, oriented to person and place, confused, moving all extremities, follows commands Extrem General: edema Laterality: bilateral Course Vital Signs Vital signs: Vital Signs Temperature 37.2 C 07/23/23 13:50 Pulse 72 07/23/23 13:50 Respiratory Rate 16 07/23/23 13:50 Blood Pressure 124/56 L 07/23/23 13:50 Pulse Oximetry 91 L 07/23/23 13:50 Temperature 37.2 C 07/23/23 13:50 Temperature Source Temporal Artery Scan 07/23/23 13:50 Pulse 82 07/23/23 14:48 Respiratory Rate 23 07/23/23 14:48 Respiratory Effort Normal, Non-Labored 07/23/23 14:58 Blood Pressure 114/86 07/23/23 14:48 Pulse Oximetry 94 07/23/23 14:48 Oxygen Delivery Method Room Air 07/23/23 14:48 Oxygen Flow Rate 0 07/23/23 14:48 Pain Level 4 07/23/23 13:50 Lab/Test Results Lab/Test Results: Laboratory Tests Range/Units 07/23/23 14:15 WBC (4.4-10.8) 10^3/uL 12.46 H RBC (4.36-5.78) 10^6/uL 4.02 L Hgb (13.5-17.5) g/dL 11.4 L Hct (40.0-50.0) % 36.5 L MCV (80-95) fL 91 MCH (27.0-33.0) pg 28.4 MCHC (32.0-36.0) % 31.2 L RDW (11.8-14.1) % 17.2 H Plt Count (130-400) 10^3/uL 287 MPV (8.0-11.0) fL 9.0 Immature Gran % 2.4 Neutrophils % 84.7 Lymphocytes % 4.3 Monocytes % 8.2 Eosinophils % 0.2 Basophils % 0.2 Nucleated RBC % (0.0-0.3) % 0.0 Absolute Neutrophils (1.2-6.7) 10^3/uL 10.55 H Absolute Lymphocytes (1.2-3.4) 10^3/uL 0.54 L Absolute Monocytes (0.1-0.8) 10^3/uL 1.02 H Absolute Eosinophils (0.0-0.7) 10^3/uL 0.02 Absolute Basophils (0.0-0.2) 10^3/uL 0.02 Sodium (136-145) mmol/L 139 Potassium (3.5-5.1) mmol/L 4.5 Chloride (98-107) mmol/L 103 Carbon Dioxide (21.0-32.0) mmol/L 29.0 Anion Gap (3-11) mmol/L 7.0 BUN (7-18) mg/dL 36 H Creatinine (0.70-1.30) mg/dL 1.0 Est GFR (CKD-EPI 2020) (mL/min/1.73m2) 77.52 Glucose (74-106) mg/dL 104 Calcium (8.5-10.1) mg/dL 9.4 Magnesium (1.8-2.4) mg/dL 2.4 Total Bilirubin (0.2-1.0) mg/dL 0.7 AST (15-37) U/L 33 ALT (16-63) U/L 32 Alkaline Phosphatase (46-116) U/L 150 H Troponin I (<or=60) ng/L < 50 Total Protein (6.4-8.2) g/dL 7.5 Albumin (3.4-5.0) g/dL 3.1 L
[2023-07-23] MEDS: Omnipaque 350 MG/ML 100 ML BTL IJ ×2 (15:29→18:17)
[2023-07-23 16:02] LABS: BE (Venous) 2 mmol/L (-2-3); HCO3 (Venous) 28 mmol/L (23-28); O2 Sat (Venous) 70 %; TCO2 (Venous) 27 mmol/L (24-29); pCO2 (Venous) 51 mmHg (41-51); pH (Venous) 7.35 (7.31-7.41); pO2 (Venous) 41 mmHg
--- NOTE | 2023-07-23 16:49 | DI.RAD_ITS ---
Exam(s) XR SHOULDER RT COMPLETE 2+V EXAM: XR SHOULDER RT COMPLETE 2+V CLINICAL HISTORY: eval for dislocation. TECHNIQUE: 2D digital imaging was performed of the right shoulder. Four images were obtained. AP, Grashey and Y views were obtained. COMPARISON: CR XR SHOULDER RT COMPLETE 2+V from 07/16/2023 FINDINGS: BONES: No acute fracture is present. No bony destructive lesion is seen. JOINTS: There is again seen anterior subluxation of the humeral head relative to the glenoid. This i s new compared to the cyst x-ray from 07/16/2023. SOFT TISSUE: Normal. IMPRESSION: Anterior subluxation/dislocation of the glenohumeral joint. Findings were discussed with Masha cobos at 6:38 p.m. on 07/23/2023. DATA REPOSITORY: RADIATION DOSE DELIVERED:
[2023-07-23 16:51] LABS: Ammonia 19 umol/L (11-32)
--- NOTE | 2023-07-23 17:00 | DI.CT_ITS ---
Exam(s) CT BRAIN NECK CTA EXAM: CT BRAIN NECK CTA CLINICAL HISTORY: cva. TECHNIQUE: Imaging Protocol: Axial CT angiography was performed with multi-slice acquisition and mu lti-planar and/or 3D reconstructions. CONTRAST MATERIAL: Intravenous: Omnipaque 350 contrast volume:70 mL COMPARISON: CT CT ABDOMEN PELVIS W from 03/09/[address] HEAD CERVICAL SPINE WO from 07/23/2023 FINDINGS: CT Head w: Ventricles and Extra axial spaces: Normal in size and morphology for the patient's age. Hemorrhage: None. Cerebral parenchyma: There are areas of decreased attenuation in the white matter consistent with sma ll vessel ischemic disease. There has been no significant change compared to the examination from [facility] in the day. No acute mass effect. Midline shift: None. Brainstem/Cerebellum: Normal. Calvarium: Normal. Visualized Paranasal sinuses/Mastoids: Clear. Soft Tissues: Unremarkable. Enhancement: Unremarkable. CTA Neck W: Common Carotid: Right: No dissection, occlusion or significant stenosis. Left: No dissection, occlusion or significant stenosis. External Carotid: Right: No occlusion or significant stenosis. Left: No occlusion or significant stenosis. Internal Carotid: Right: No dissection, occlusion or significant stenosis. There is atherosclerosis at the origin of t he right internal carotid artery with less than 50 percent stenosis. Left: No dissection, occlusion or significant stenosis. There is atherosclerosis at the origin of th e left internal carotid artery with less than 50 percent stenosis. Vertebral Artery: Right: No dissection, occlusion or significant stenosis. There is atherosclerosis in the right verte bral artery with less than 50 percent stenosis. Left: No dissection, occlusion or significant stenosis. There is atherosclerosis in the left vertebr al artery with less than 50 percent stenosis. Lung Apices: Findings in the chest were discussed on the CT scan of the chest from earlier in the day . Please see the dedicated CT scan of the chest report. Bones: Degenerative changes are seen in the cervical spine. Please refer to the dedicated CT scan of the cervical spine from earlier in the day. There is again seen a right humeral head fracture in an terior subluxation/dislocation of the glenoid relative to the humerus. Soft Tissues: Normal. Thyroid gland: Unremarkable. CTA Brain W: Internal Carotid Arteries: Atherosclerosis is present. No evidence of occlusion dissection or aneury sm. There is atherosclerosis present and less than 50 percent stenosis is seen. Anterior Cerebral Arteries: Right: No aneurysm, occlusion or significant stenosis. Left: No aneurysm, occlusion or significant stenosis. Middle Cerebral Arteries: Right: No aneurysm, occlusion or significant stenosis. Left: No aneurysm, occlusion or significant stenosis. Posterior Cerebral Arteries: Right: No aneurysm, occlusion or significant stenosis. Left: No aneurysm, occlusion or significant stenosis. Vertebral Arteries: Right: No aneurysm, occlusion or significant stenosis. Left: No aneurysm, occlusion or significant stenosis. Basilar Artery: No aneurysm, occlusion or significant stenosis. IMPRESSION: 1. No large vessel occlusion or significant stenosis on the CT angiography of the head. 2. No acute intracranial process. 3. No occlusion or significant stenosis on the CT angiography of the neck. 4. Findings were discussed with Masha Valera at 6:37 p.m. on 07/23/2023. RADIATION DOSE DELIVERED: Total DLP DATA REPOSITORY: All CT scans at this facility are submitted to the National Radiology Data Registry (NRDR) Dose Index Registry (DIR) with the [employer] (ACR). RADIATION OPTIMIZATION: All CT scans at this facility use at least one of these dose optimization te chniques: automated exposure control; mA and/or kV adjustment per patient size (includes targeted exa ms where dose is matched to clinical indication); or iterative reconstruction.
[2023-07-23] MEDS: Lactated Ringers 500 ML IV (17:13)
--- NOTE | 2023-07-23 17:44 | NUR.NOTE ---
Nursing Note: R/L Unbleachable redness to bilat buttock, older skin tears to right forearm and right shoulder. Cleanse with sterile water and redressed in the ED.
[2023-07-23 17:47] LABS: Troponin I < 50 ng/L (<or=60)
--- NOTE | 2023-07-23 17:50 | NUR.NOTE ---
Nursing Note: Patient Seemed to like talking about living in [place], man[place] v[place] and going to the [facility]. He told thie nurse he use to Do plays in [facility] and sing for fun. He spoke of his son who went to school in [place] and now lives in [place]
[2023-07-23] MEDS: Normal Saline - Diluent 50 ML VIAL IV (18:17)
[2023-07-23] MEDS: Lidocaine 2% Jelly 6 ML SYR ×2 (18:51→19:15)
[2023-07-23] MEDS: Lidocaine 2% Jelly 11 ML SYR ×3 (19:30→22:15)
[2023-07-23 20:16] LABS: Bilirubin Negative (Negative); Blood Large (Negative); Clarity Clear (Clear); Glucose Negative (Negative); Ketones Negative (Negative); Leukocyte Esterase Negative (Negative); Nitrite Negative (Negative); Specific Gravity 1.015 (1.005-1.025); Urobilinogen 0.2 mg/dL (Up to 0.2); pH 5.5 (5-8)
[2023-07-23 20:25] LABS: Bacteria Negative HPF (Negative); C & S Indicated? No; Casts 0-2 Hyaline LPF (Negative); Crystals Negative HPF (Negative); Epithelial Cells Negative HPF (Negative); Mucus Trace (Negative); RBC 20-50 HPF (0-2); WBC Negative HPF (0-5)
--- NOTE | 2023-07-23 20:30 | DI.RAD_ITS ---
Exam(s) XR SHOULDER RT COMPLETE 2+V EXAM: XR SHOULDER RT COMPLETE 2+V CLINICAL HISTORY: reduction of shoulder. TECHNIQUE: 2D digital imaging was performed. Five views. COMPARISON: CR XR SHOULDER RT COMPLETE 2+V from 07/23/2023 FINDINGS: Exam limited by overlying clothing. Suboptimal positioning. BONES: No acute fracture is present. No bony destructive lesion is seen. JOINTS: No dislocation present. Degenerative changes glenohumeral joint SOFT TISSUE: Normal. IMPRESSION: No gross evidence of an acute fracture. DATA REPOSITORY: RADIATION DOSE DELIVERED:
--- NOTE | 2023-07-23 21:42 | DI.VRAD_ITS ---
PROCEDURE INFORMATION: Exam: XR Right Shoulder Exam date and time: 07/23/2023 8:58 PM Age: 77 years old Clinical indication: Abnormal findings; Abnormal imaging study of the limbs; Patient HX: Reduction of RT shoulder TECHNIQUE: Imaging protocol: Radiologic exam of the right shoulder. Views: 2 or more views. COMPARISON: CR XR SHOULDER RT COMPLETE 2+V 07/23/2023 6:16 PM FINDINGS: Bones/joints: Normal. Soft tissues: Normal. IMPRESSION: No acute findings. Dictated and Authenticated by: Phillip Maki MD. Ordering:SELWYN Flanagan MD
[2023-07-23] MEDS: Lactated Ringers 1,000 ML 150 ML IV (21:53)
--- NOTE | 2023-07-23 23:04 | NUR.NOTE ---
2304: [id number] prior duque catheter insertions d/t pt issues w/ urinary retention. Only successful cath had been done by TERESA Knutson w/ I&O rigid cath. Attempted to insert 16Fr coude catheter. Had some bloody urine returned, advance coude another 3cm and inflated balloon. No more urinary output noted, only some blood. MD Thurman to bedside w/ ultrasound. Catheter balloon identified w/ US in urethra past penile shaft. Catheter removed. Will bladder scan and straight cath PRN per SEBASTIÁN Mccord.
--- NOTE | 2023-07-23 23:09 | ED.PROG_ITS ---
Date of service: 07/23/23 Time of Service: 23:09 Medical Decision Making Care is excepted and transition from Martin Hess MD pending diagnostic imaging Patient is alert and oriented, appears chronically ill, vitals stable, hypoxic while sleeping, oxygen sats while awake ranged from 94 to 97% Dr. Wayne radiology called to relay right doug stroke on CT scan, CTA head and neck was ordered, last known well the patient uncertain at this time, not a candidate for tPA Neurology consulted, Dr. Navarrete at [facility], it took approximately 2 and half hours for this physician to review patient's films and recommendation was for MRI and aspirin in addition to patient's atorvastatin with echocardiogram CT of patient's shoulder displayed a dislocation and fracture Case initially was discussed with [facility] orthopedics, Candy who feels as though patient has a dislocation of shoulder with Hill-Sachs deformity and recommends reduction I did attempt to reduce the shoulder, however patient's exam is inconsistent with dislocation, there is some mild subluxation with attempted reduction which was performed on 3 occasions and patient tolerated well, however joint appears to be intact, patient is neurovascularly intact, he has no cervical spine tenderness [facility] feels as though patient should be transferred for orthopedic evaluation and assessment, however they are unable to take patient secondary to capacity, [facility] was consulted and I spoke with orthopedist there, Dr. Jeffers who reviewed films and does not see a dislocation on this patient, he states Hill- Sachs deformity and does not recommend continued attempted reductions on this patient Patient is supine in bed, I will not apply sling at this time Of note, patient felt as though he needed to urinate and was unsuccessful, bladder scan was performed Patient had 600 cc in his bladder so it is not attempted to place Red catheter as patient will need admission, this was unsuccessful on several attempts however straight catheterization was performed with approximately 1000 cc of urine A coud? Red catheter was attempted by patient's nurse and unfortunately the Red catheter is not in appropriate position and not draining so this was removed, patient will likely need Red catheter placement by urology as this is a very complex catheter placement, it is interesting that patient has been able to void until hospitalization today reportedly He did tolerate straight catheterization, but will likely need urology tomorrow Patient has had a labile blood pressure, it appears as though this is consistent with his prior assessments when compared He has no evidence of sepsis clinically, I think he is hemodynamically stable given his presentation, he is extremely emaciated Electrolytes are stable, BUN is 36 likely consistent with dehydration He received 1 L of LR followed by 150 cc an hour of LR Has oxygen supplementation for any falls asleep, on 1 L remains 90 to 91% His lungs are clear, he is alert and oriented x 4 and able to follow basic commands, his speech is thickened, he is dehydrated and his mucous membranes are dry as this is likely contributing however he does have documented dysphagia per son and patient and so or for patient has anything by mouth I think she will need speech therapy assessment This has been a complex case, I spent approximately 180 minutes managing this patient's care He will be admitted to this facility by Dr. Kareem Morocho, hospitalist Of note I also spoke with Dr. Beckman and confirmed has potential availability for Red catheter placement tomorrow and he states he does have capacity to come in should the need arise Sign Out Sign Out Data: Sign Out Comment: Follow-up on CT of the head, C-spine, chest, right upper extremity. Follow-up on urinalysis. Plan for hospitalization given dehydration, generalized weakness, failure to thrive at home, frequent falls, acute respiratory failure with oxygen requirement. Last updated by Martin Hess MD at 07/23/23 16:45 Discharge Plan Disposition Patient Disposition: Admit to [facility] Condition: Stable Discharge Details Clinical Impression: Frailty syndrome in geriatric patient, Alcohol use disorder, Hepatic cirrhosis, Acute CVA (cerebrovascular accident), Hypoxia, Acute urinary retention, At risk for falls, Injury of shoulder, right Primary Care Provider: Asher Jeter ED Provider: Masha Valera Home Meds and New Rx's Prescriptions: No Action acetaminophen 500 mg tablet 1,000 mg PO BID PRN albuterol sulfate 90 mcg/actuation HFA aerosol inhaler 1 - 2 puff inhalation Q4H PRN (Reason: shortness of breath or wheezing) Qty: 1 3RF Rx Instructions: Dispense brand of albuterol inhaler covered by patient's insurance budesonide-formoterol [Symbicort] 160-4.5 mcg/actuation HFA aerosol inhaler 2 puff inhalation BID Qty: 3 3RF Ensure Original 0.04-1.05 gram-kcal/mL liquid 237 ml PO TID Qty: 270 3RF thiamine mononitrate (vit B1) [Vitamin B-1 (mononitrate)] 100 mg tablet 100 mg PO DAILY Qty: 90 3RF cholecalciferol (vitamin D3) 25 mcg (1,000 unit) tablet 50 mcg PO DAILY methocarbamol 500 mg tablet 500 mg PO Q6H PRN (Reason: muscle spasm) atorvastatin 40 mg tablet 40 mg PO DAILY Qty: 90 3RF carvedilol 6.25 mg tablet 6.25 mg PO BID Qty: 180 3RF Rx Instructions: Administer with food pantoprazole 40 mg tablet,delayed release (DR/EC) See Rx Instructions .ROUTE .COMPLEX Qty: 90 3RF Dose Instruction: TAKE 1 TABLET BY MOUTH EVERY MORNING 30 TO 60 MINUTES BEFORE FIRST MEAL OF THE DAY ON AN EMPTY STOMACH Rx Instructions: TAKE 1 TABLET BY MOUTH EVERY MORNING 30 TO 60 MINUTES BEFORE FIRST MEAL OF THE DAY ON AN EMPTY STOMACH spironolactone 50 mg tablet 100 mg PO DAILY Qty: 180 3RF furosemide [Lasix] 20 mg tablet 20 mg PO QAM Qty: 90 3RF cyanocobalamin (vitamin B-12) [Vitamin B-12] 500 mcg Tablet 1,000 mcg PO DAILY Qty: 0 0RF
[2023-07-24 00:11] VITALS: BP 103/67; PULSE 82; RESP 17; TEMP 36.3; O2SAT 94
[2023-07-24] MEDS: Lidocaine 2% Jelly 11 ML SYR (04:18)
[2023-07-24] MEDS: Aspirin 300 MG SUPP PR (04:22)
--- NOTE | 2023-07-24 04:44 | HPE_ITS ---
Date of service: 07/23/23 Time of Service: 23:30 Assessment and Plan Assessment and plan (1) Acute CVA (cerebrovascular accident): Start date: 07/23/23 Status: Acute Assessment and plan: This is a 77-year-old gentleman who fell 3 days prior to admission injuring right shoulder and was found to have an acute right doug CVA by CT of the head. He was not a candidate for tPA and was given aspirin per rectum recommendations of teleneurology. He did have some problems following with confusion and will need reevaluation before given meals. He will be given permissive hypertension holding carvedilol possible to swallow pills, he should be continued on at least some of his home medications including atorvastatin. Extensive imaging of his shoulder, chest and neck did not reveal acute fractures but there was a question of right shoulder dislocation which by review with orthopedics did not appear to be present. Patient has multiple skin breakdown and is cachectic with poor nutrition and will need possible placement versus hospice with home care. This appears to be problematic with son who is DPOA and not able to find home care. DVT prophylaxis will be held because of patient's acute stroke and gross hematuria with urinary retention. He will need PT and OT as well. He is a DNR/DNI. (2) Hypoxic respiratory failure: Start date: 07/23/23 Status: Acute Assessment and plan: Patient is on inhalers chronically at present is not having expiratory wheeze I would not be treated for acute exacerbation but given nebulizers. O2 supplementation as needed. There is no indication for antibiotics at this time but we will just watch for aspiration pneumonia. He does have leukocytosis and procalcitonin will be in the morning. Watch for fever. Repeat imaging if needed. Qualifiers: Chronicity: acute on chronic Qualified Code(s): J96.21 - Acute and chronic respiratory failure with hypoxia (3) Acute urinary retention: Start date: 07/23/23 Status: Acute Assessment and plan: Patient has probable BPH and is having gross hematuria with repeated attempts at straight catheterization at the patient's Red catheter has failed. Urology consultation has been placed and Red catheter will be reinserted early in the morning. He was on IV hydration with LR and this will be held with patient having urinary retention and increasing peripheral edema with hydration. (4) Injury of shoulder, right: Start date: 07/23/23 Status: Acute Assessment and plan: Imaging after suggested possible fracture and dislocation but multiple times at reduction after fracture was ruled out, it was thought that this was not dislocated and further attempts held. Orthopedics was consulted and reviewed imaging in the ED. PT will evaluate. Patient does have extensive muscle loss and weakness. Qualifiers: Encounter type: initial encounter Qualified Code(s): S49.91XA - Unspecified injury of right shoulder and upper arm, initial encounter (5) Frequent falls: Status: Chronic Assessment and plan: Patient is extremely weak with frequent falls and failure to thrive. He lives alone. He does need placement. PT and OT evaluation started with acute CVA. (6) Hepatic cirrhosis: Status: Chronic Assessment and plan: No ascites at this time but patient is chronically on diuretics with Lasix and spironolactone. With IV hydration he does have increasing peripheral edema and spironolactone will be continued with caution and hold Lasix for now. Liver functions tests are normal PT/INR to be done. Qualifiers: Hepatic cirrhosis type: alcoholic cirrhosis Ascites presence: without ascites Qualified Code(s): K70.30 - Alcoholic cirrhosis of liver without ascites (7) Alcohol use disorder: Status: Chronic Assessment and plan: Patient has minimal alcohol intake daily but consider CIWA protocol if any signs of withdrawal during his hospital stay. History of Present Illness History of Present Illness Chief Complaint: Fall with injury to right shoulder Narrative: This is a 77-year-old male patient who has a history of COPD with tobacco use not on home oxygen, alcoholic cirrhosis with daily drinks at low volume as well as weight loss with malnutrition and generalized weakness with failure to thrive who fell at home 3 days prior to admission injuring his right shoulder. He had multiple abrasions over his right shoulder left knee and chronic ulcers over his lower extremities, chronic edema with his alcohol cirrhosis on chronic diuretics. He does complain of generalized weakness and as stated is losing weight and treatment to thrive at home. He lives alone but his son having a camera on home from the [facility] and they are looking for home care which does not available. Patient does not wish to go to urgent care facility if he can void but this may be the outcome. In the ED was found to have acute hypoxic respiratory failure with hypoxemia adamantly with O2 supplementation given. He also appeared dehydrated on his lab did not indicate this. He does not appear severely malnourished and almost cachectic. Patient offers little more history being fairly confused and may be baseline. His ammonia level was normal. His liver functions were also normal not indicating acute liver failure. After extensive imaging in the ED, patient was found to have a probable acute right doug CVA with an abnormal shoulder x-ray on CT and imaging with multiple attempts for reduction of shoulder dislocation with no obvious fracture eventually being discussed with orthopedics and reviewing imaging. It was thought that the patient had a chronic deformity on the imaging without fracture that was not of dislocation. The patient had no further symptoms of injection of the shoulder and was kept comfortable. He was initiated on IV lactated Ringer's for hydration with swelling of the lower extremities and this was switched to KVO because of patient's urinary retention problematic in the ED as well. He did have a Red catheter placed with some gross hematuria and does not drink well. Multiple attempts to straight catheterize the patient failed. Urology consultation is in place for placement of the Red catheter. Patient also will have swallow evaluation with not swallowing well and it is carvedilol will be held for permissive hyper acute CVA. MRI imaging and echocardiogram with bubble study have been ordered with date will not be done until the first week. Patient was admitted for rehabilitation. He is a DNR/DNI. Review of Systems Narrative: 13 point review of systems otherwise unrevealing or unobtainable because of patient's slight confusion. PFSH All Active Problems Hypoxic respiratory failure (Acute) Injury of shoulder, right (Acute) Acute urinary retention (Acute) Hypoxia (Acute) Acute CVA (cerebrovascular accident) (Acute) Encounter for hospice care (Acute) Muscular deconditioning (Acute) Acute pain of right shoulder (Acute) Need for home health care (Acute) Frequent falls (Chronic) Palliative care patient (Acute) Advance care planning (Acute) Unexplained weight loss (Acute) Osteoporosis (Chronic) Protein calorie malnutrition (Acute) Venous stasis (Acute) Onychomycosis (Acute) At risk for falls (Acute) Inflamed seborrheic keratosis (Acute) Right wrist tendonitis (Acute) Hiatal hernia (Chronic) Noted on 01/17/2021 CT Lung nodules (Acute) Portal hypertension (Acute) Anemia (Chronic) Frailty syndrome in geriatric patient (Chronic) Dysphagia (Chronic) 10/17/2018 EGD ([facility] – [place]): Smalls's & interval resolution of esophageal varices seen on previous EGD (see Smalls's dx comments for details); 06/06/2019 Barium Swallow: some dysmotility & aspiration --> referred to Speech Therapy 04/12/20 [facility] [place] Esophageal Manometry; 05/17/2020 EGD: Grade I esophageal varices, duodenal erosions w/o bleeding, no obstructive cause for dysphagia Smalls's esophagus (Chronic) 10/17/2018 EGD ([facility] – [place]): esophageal mucosal changes classified as Smalls's stage C0-M1 per [place] criteria (also showed resolution of esophageal varices on carvedilol 6.25 mg BID) Tobacco use disorder (Chronic) 1.5- 2 PPD not interested in quitting 08/2020 Restless leg syndrome (Chronic) Alcohol use disorder (Chronic) not interested in quitting 08/2020 approx 48-60 oz of beer + hard liquor daily Sigmoid diverticulosis (Chronic 02/01/18) 02/01/2018 colonoscopy Incisional hernia, without obstruction or gangrene (Chronic 01/17/18) [facility] [place] GI consult Hypertension (Chronic 08/01/14) Hyperlipidemia (Chronic 03/24/13) 11/2018 labs: good response to high potency statin, continue Hepatic cirrhosis (Chronic 01/14/18) [facility] [place] GI 02/24/2018 Fibroscan: stage 4 liver fibrosis, consistent with cirrhosis with possible portal HTN 06/22/2018 EGD (Dr. Hoang): confirmed portal HTN with grade 1 esophageal varices Sodium restriction 2000 mg for ascites control Gastroesophageal reflux disease (Chronic 03/15/13) HH surgery 08/1990 Chronic obstructive lung disease (Chronic 03/15/13) 09/06/2020 PFTs ([facility] – [place]): moderate-severe (FEV1 50-59%) Bilateral lower extremity edema (Chronic 01/14/18) Related to cirrhosis BPH w urinary obs/LUTS (Chronic 03/10/13) Rectosphincteric dyssynergia (Chronic) Manifested as fecal incontinence and constipation; resolved with daily fiber supplementation Medical History Femur fracture, left (~02/2021) Other bursitis of elbow, right elbow (01/02/21) Aspiration pneumonia due to regurgitated food Closed fracture of left orbit Fracture of nasal bone Periprosthetic fracture around internal prosthetic left hip joint C3 cervical fracture Intertrochanteric fracture of left femur Family history of malignant melanoma ov note dated 05/10/20-Dr. Hale Squamous cell carcinoma Face Basal cell carcinoma (BCC) Face Hydrocele of testis (03/24/13) S/p repair L; then occurred on R side and now chronic Rotator cuff syndrome (03/24/13) S/p B/L repair Esophageal varices 06/22/2017 EGD (Dr. 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 Hale Derm Surgical History S/P skin biopsy (~09/2020) R inguinal fold on margins of scrotum-Dr Hale H/O endoscopy 05/17/20 [facility] – [place] H/O colonoscopy 05/17/20 at [facility] – [place] - no need for further to have any further colonscopy per report History of esophagogastroduodenoscopy (EGD) (06/22/18) dr hoang, grade I esophageal varices right shoulder (03/24/00) Repair of incision from Marci fundoplication (03/24/87) Prostatectomy (~05/2007) Marci Fundoplication (03/24/85) Left shoulder (09/24/07) Family History Mother , resp failure due to COPD age 69 COPD (chronic obstructive pulmonary disease) Smoker Father , widespread cancer age 73 Personal history of malignant neoplasm prostate Malignant melanoma Smoker Prostate cancer COPD (chronic obstructive pulmonary disease) Son No problems noted. Daughter No problems noted. Brother , age 68 from COPD COPD (chronic obstructive pulmonary disease) Smoker Sister , age 62 from pancreatic cancer Smoker Pancreatic cancer Social History Smoking/Tobacco Use Status: Current every day Tobacco Type: cigarettes Tobacco: How many years used: 60 Quit status: has quit before Second Hand Exposure: No Counseling given: counseling >3 minutes Smoking risk assessment performed?: Yes Alcohol Intake: current Alcohol Intake frequency: 3 or more drinks per day Alcohol type: beer and hard liquor Counseling provided: other Drug use: Never Substance use type: does not use Counseling provided: provider counseling Caregiver/Support person: No Household members: none Housing: house Number of Children: 2 number of grandchildren: 3 Communication Needs: Corrective Lenses Education Level: high school Do you need help understanding health information?: Often current occupation: Retired [employer]; was in [place] x 3 yrs Do you think of yourself as: straight/heterosexual Current gender identity: male What is your relationship status?: How often do you talk on the phone with friends or family?: once per week How often do you get together with friends or relatives?: once per week Panel score (0-1 are the most socially isolated patients): 0 What type of physical activity do you participate in: none Special tg needs: No Agree to transfusion: No Seatbelt use: always Water heater temp set <120 deg: Yes Working smoke detector in home: Yes Fire extinguisher in home: Yes Carbon monox detector in home: Yes Firearms in home: No Do you feel safe at home: Yes Do you feel safe in your relationship?: Yes Additional Social history: lives at home alone [place] 07/23/23 Meds Allergies and Home Medications Allergies Allergy/AdvReac Type Severity Reaction Status Date / Time No Known Allergies Allergy Verified 07/20/23 08:48 Home Medications Medication Instructions Recorded Confirmed Type cyanocobalamin (vitamin B-12) 500 1,000 mcg (2 x 500 mcg) PO DAILY 06/18/20 07/24/23 Rx mcg tablet (Vitamin B-12) #0 tabs thiamine mononitrate (vit B1) 100 100 mg PO DAILY #90 tabs 08/26/20 07/24/23 Rx mg tablet (Vitamin B-1 (mononitrate)) cholecalciferol (vitamin D3) 25 50 mcg PO DAILY 04/04/21 07/24/23 History mcg (1,000 unit) tablet methocarbamol 500 mg tablet 500 mg PO Q6H PRN muscle spasm 04/04/21 07/24/23 History atorvastatin 40 mg tablet 40 mg PO DAILY #90 tab-caps 06/24/22 07/24/23 Rx carvedilol 6.25 mg tablet 6.25 mg PO BID esophageal varices 09/24/22 07/24/23 Rx #180 tabs food supplemt, lactose-reduced 237 ml PO TID #270 units 10/08/22 07/24/23 Rx 0.04 gram-1.05 kcal/mL oral liquid (Ensure Original) pantoprazole 40 mg tablet,delayed See Rx Instructions .Route 10/14/22 07/24/23 Rx release .COMPLEX #90 tabs spironolactone 50 mg tablet 100 mg (2 x 50 mg) PO DAILY #180 11/18/22 07/24/23 Rx tabs furosemide 20 mg tablet (Lasix) 20 mg PO QAM cirrhosis #90 tabs 01/15/23 07/24/23 Rx albuterol sulfate 90 mcg/actuation 1 - 2 puff inhalation Q4H PRN 02/12/23 07/24/23 Rx aerosol inhaler shortness of breath or wheezing #1 unit budesonide-formoterol HFA 160 2 puff inhalation BID #3 units 07/20/23 07/24/23 Rx mcg-4.5 mcg/actuation aerosol inhaler (Symbicort) pantoprazole 40 mg granules 40 mg PO DAILY 07/24/23 07/24/23 History delayed-release for susp in packet (Protonix) Exam Narrative Exam Narrative: General: Patient appears older than stated age, disheveled and cachectic. He does open his eyes during discussion but has minimal conversation. He appears comfortable in bed is alert and oriented at least to person and place. He is in no acute distress. HEENT: Normocephalic, coarsened facial features, disheveled hair and khan. Eyes with pupils equal react light symmetrically, extraocular intact and sclera anicteric. Oropharynx with dry mucosa. To the midline. Neck: Supple without JVD. Lungs: Poor respiratory effort with no focalizing rales or rhonchi. No increased expiratory phase or expiratory wheeze. Heart: Distant heart sounds with regular rate and rhythm. Abdomen: Scaphoid contour, soft to palpation with no palpable hepatosplenomegaly. No palpable ascites. Bowel sounds positive but decreased in all quadrants. Genitalia/rectal: Exam deferred. Patient has had Red catheter removed. There was gross hematuria with attempts of straight catheterization. Extremities: 1-2+ pitting edema lower extremities with multiple stasis ulcers covered with bandages. Patient is wearing socks. There is edema at the sock line. Joints have decreased range of motion and no joint effusion palpable. Right shoulder is tender to movement but appears in place. There is an avulsion covered with a Band-Aid over his right shoulder. Skin: Multiple ulcerations scattered over right shoulder, both lower extremities and stage I pressure ulcers over both buttocks reported by nurses. Cool, pale and dry. Neuro: No focalizing motor deficits with cranial nerves II through XII appearing grossly intact. No tremor. No Babinski. Patient is generally but moves extremities equally. Psych: Flattened affect with some smiling upon engagement and mood appears stable difficult to interpret with patient confusion. No abnormal thought processes manifested. Memory Was nonpalpable patient confusion. Results Imaging Imaging Studies: EXAM: CT CHEST W CLINICAL HISTORY: hypoxia, fall. TECHNIQUE: Multi planar reconstructions were performed. CONTRAST MATERIAL: Omnipaque 350; 75 cc COMPARISON: CT CT CHEST LUNG CANCER SCREEN from 04/09/2023 FINDINGS: CHEST: LUNGS: Previously described biapical lung scarring is again noted, again noted be more prominent on the right side and superimposed upon COPD findings. There is some mild increased markings in the right lower lobe, probably atelectasis. There is also slight thickening of the right major fissure. There is no dependent pleural effusion. No new findings in the opposite-left lung. No pleural effusion on the left side. No new ominous pulmonary nodules. Secretions are noted in the mid trachea, rachel, and proximal mainstem bronchi. MEDIASTINUM: There is no hilar nor mediastinal adenopathy. Visualized thyroid unremarkable. CARDIAC: Heart size is normal. There is no pericardial effusion.Caliber of the thoracic aorta is within normal limits. No evidence of dissection. Mom VISUALIZED UPPER ABDOMEN:There are no significant adrenal masses. OSSEOUS: Anterior dislocation of the right shoulder glenohumeral joint. Left glenohumeral joint unremarkable. Mid level compression fracture of thoracic vertebra but this is unchanged from prior CT scan of 04/09/2023. IMPRESSION: 1. Mild increased markings in the right lung base and thickening of the right major fissure probably indicating some fluid therein. There is no layering pleural effusion on either side. No new left lung findings. 2. Right shoulder glenohumeral joint dislocation. EXAM: CT HEAD CERVICAL SPINE WO CLINICAL HISTORY: altered, fall. TECHNIQUE: Imaging Protocol: Axial computed tomography images with coronal and sagittal reformatted images were created and reviewed COMPARISON: CT CT HEAD WO from 04/03/2022 MR MR ANGIO BRAIN WO from 05/20/[address] UPPER EXTREMITY RT WO from 07/23/2023 FINDINGS: BRAIN: There are no skull fractures nor fluid in the visualized paranasal sinuses. There is no evidence of intracranial hemorrhage, mass effect, or shift of midline structures. There are no extra-axial fluid collections. The ventricles are not enlarged or shifted and there is no blood within the ventricular system nor within the basal cisterns. There is abnormal hypodensity in the right side of the doug, previously present. This may be exaggerated by head tilt here but may considerations for infarct. There is some bilateral periventricular hypodensity again noted consistent with chronic small vessel disease. CERVICAL SPINE: Scarring in the right lung apex noted There is no evidence of fracture nor listhesis. No significant prevertebral soft tissue swelling. Multilevel facet arthropathy noted. No facet malalignment. Some mild disc space narrowing is noted. No listhesis. There is no significant facet joint malalignment. No significant osseous lesions evident. IMPRESSION: Abnormal area of hypodensity in the right-side of the doug-probable infarct. No hemorrhage.Consider MRI with diffusion imaging. No evidence of cervical spine fracture, malalignment, nor acute compromise of the cervical spinal canal. EXAM: CT BRAIN NECK CTA CLINICAL HISTORY: cva. TECHNIQUE: Imaging Protocol: Axial CT angiography was performed with multi- slice acquisition and multi-planar and/or 3D reconstructions. CONTRAST MATERIAL: Intravenous: Omnipaque 350 contrast volume:70 mL COMPARISON: CT CT ABDOMEN PELVIS W from 03/09/[address] HEAD CERVICAL SPINE WO from 07/23/2023 FINDINGS: CT Head w: Ventricles and Extra axial spaces: Normal in size and morphology for the patient's age. Hemorrhage: None. Cerebral parenchyma: There are areas of decreased attenuation in the white matter consistent with small vessel ischemic disease. There has been no significant change compared to the examination from earlier in the day. No acute mass effect. Midline shift: None. Brainstem/Cerebellum: Normal. Calvarium: Normal. Visualized Paranasal sinuses/Mastoids: Clear. Soft Tissues: Unremarkable. Enhancement: Unremarkable. CTA Neck W: Common Carotid: Right: No dissection, occlusion or significant stenosis. Left: No dissection, occlusion or significant stenosis. External Carotid: Right: No occlusion or significant stenosis. Left: No occlusion or significant stenosis. Internal Carotid: Right: No dissection, occlusion or significant stenosis. There is atherosclerosis at the origin of the right internal carotid artery with less than 50 percent stenosis. Left: No dissection, occlusion or significant stenosis. There is atherosclerosis at the origin of the left internal carotid artery with less than 50 percent stenosis. Vertebral Artery: Right: No dissection, occlusion or significant stenosis. There is atherosclerosis in the right vertebral artery with less than 50 percent stenosis. Left: No dissection, occlusion or significant stenosis. There is atherosclerosis in the left vertebral artery with less than 50 percent stenosis. Lung Apices: Findings in the chest were discussed on the CT scan of the chest from earlier in the day. Please see the dedicated CT scan of the chest report. Bones: Degenerative changes are seen in the cervical spine. Please refer to the dedicated CT scan of the cervical spine from earlier in the day. There is again seen a right humeral head fracture in anterior subluxation/dislocation of the glenoid relative to the humerus. Soft Tissues: Normal. Thyroid gland: Unremarkable. CTA Brain W: Internal Carotid Arteries: Atherosclerosis is present. No evidence of occlusion dissection or aneurysm. There is atherosclerosis present and less than 50 percent stenosis is seen. Anterior Cerebral Arteries: Right: No aneurysm, occlusion or significant stenosis. Left: No aneurysm, occlusion or significant stenosis. Middle Cerebral Arteries: Right: No aneurysm, occlusion or significant stenosis. Left: No aneurysm, occlusion or significant stenosis. Posterior Cerebral Arteries: Right: No aneurysm, occlusion or significant stenosis. Left: No aneurysm, occlusion or significant stenosis. Vertebral Arteries: Right: No aneurysm, occlusion or significant stenosis. Left: No aneurysm, occlusion or significant stenosis. Basilar Artery: No aneurysm, occlusion or significant stenosis. IMPRESSION: 1. No large vessel occlusion or significant stenosis on the CT angiography of the head. 2. No acute intracranial process. 3. No occlusion or significant stenosis on the CT angiography of the neck. EXAM: CT UPPER EXTREMITY RT WO CLINICAL HISTORY: fall, right shoulder pain. TECHNIQUE: Imaging Protocol: Axial computed tomography images with coronal and sagittal reformatted images were created and reviewed. COMPARISON: CR XR SHOULDER RT COMPLETE 2+V from 07/16/2023 FINDINGS: There is patient motion artifact. Bones: There is an anterior dislocation of the humeral head relative to the glenoid with a depressed fracture of the posterior aspect of the humeral head. No other humeral fracture is identified. There is a healing fracture involving the posterior lateral aspect of the right 8th rib. Old healed right rib fractures are also noted. There are degenerative changes seen at the acromioclavicular and glenohumeral joints. Soft tissue calcifications are present. No cellulitic or osteomyelitic changes are identified. No lytic or sclerotic lesions are identified. Soft Tissues: Marked emphysematous changes are seen in the lungs. Please refer to the CT scan of the chest for complete details on the lung findings. IMPRESSION: 1. Anterior dislocation of the right glenohumeral joint with a fracture involving the posterior aspect of the humeral head. EXAM: XR SHOULDER RT COMPLETE 2+V CLINICAL HISTORY: eval for dislocation. TECHNIQUE: 2D digital imaging was performed of the right shoulder. Four images were obtained. AP, Grashey and Y views were obtained. COMPARISON: CR XR SHOULDER RT COMPLETE 2+V from 07/16/2023 FINDINGS: BONES: No acute fracture is present. No bony destructive lesion is seen. JOINTS: There is again seen anterior subluxation of the humeral head relative to the glenoid. This is new compared to the cyst x-ray from 07/16/2023. SOFT TISSUE: Normal. IMPRESSION: Anterior subluxation/dislocation of the glenohumeral joint. Exam: XR Right Shoulder Exam date and time: 07/23/2023 8:58 PM Age: 77 years old Clinical indication: Abnormal findings; Abnormal imaging study of the limbs; Patient HX: Reduction of RT shoulder TECHNIQUE: Imaging protocol: Radiologic exam of the right shoulder. Views: 2 or more views. COMPARISON: CR XR SHOULDER RT COMPLETE 2+V 07/23/2023 6:16 PM FINDINGS: Bones/joints: Normal. Soft tissues: Normal. IMPRESSION: No acute findings. Labs 07/23/23 14:15 07/23/23 14:15 Labs: Laboratory Results - last 24 hr 07/23/23 07/23/23 07/23/23 14:15 15:55 17:25 WBC 12.46 H RBC 4.02 L Hgb 11.4 L Hct 36.5 L MCV 91 MCH 28.4 MCHC 31.2 L RDW 17.2 H Plt Count 287 MPV 9.0 Immature Gran % 2.4 Neutrophils % 84.7 Lymphocytes % 4.3 Monocytes % 8.2 Eosinophils % 0.2 Basophils % 0.2 Nucleated RBC % 0.0 Absolute Neutrophils 10.55 H Absolute Lymphocytes 0.54 L Absolute Monocytes 1.02 H Absolute Eosinophils 0.02 Absolute Basophils 0.02 VBG pH 7.35 VBG pCO2 51 VBG pO2 41 VBG HCO3 28 VBG Total CO2 27 VBG O2 Saturation 70 VBG Base Excess 2 Sodium 139 Potassium 4.5 Chloride 103 Carbon Dioxide 29.0 Anion Gap 7.0 BUN 36 H Creatinine 1.0 Est GFR (CKD-EPI 2020) 77.52 Glucose 104 Calcium 9.4 Magnesium 2.4 Total Bilirubin 0.7 AST 33 ALT 32 Alkaline Phosphatase 150 H Ammonia 19 Troponin I < 50 < 50 Total Protein 7.5 Albumin 3.1 L TSH 2.80 Urine Color Urine Clarity Urine pH Ur Specific [place] Urine Protein Urine Ketones Urine Blood Urine Nitrite Urine Bilirubin Urine Urobilinogen Ur Leukocyte Esterase Urine RBC Urine WBC Ur Epithelial Cells Urine Crystals Urine Bacteria Urine Casts Urine Mucus Ur Culture Indicated? Urine Glucose 07/23/23 20:08 WBC RBC Hgb Hct MCV MCH MCHC RDW Plt Count MPV Immature Gran % Neutrophils % Lymphocytes % Monocytes % Eosinophils % Basophils % Nucleated RBC % Absolute Neutrophils Absolute Lymphocytes Absolute Monocytes Absolute Eosinophils Absolute Basophils VBG pH VBG pCO2 VBG pO2 VBG HCO3 VBG Total CO2 VBG O2 Saturation VBG Base Excess Sodium Potassium Chloride Carbon Dioxide Anion Gap BUN Creatinine Est GFR (CKD-EPI 2020) Glucose Calcium Magnesium Total Bilirubin AST ALT Alkaline Phosphatase Ammonia Troponin I Total Protein Albumin TSH Urine Color Yellow Urine Clarity Clear Urine pH 5.5 Ur Specific [place] 1.015 Urine Protein Trace H Urine Ketones Negative Urine Blood Large H Urine Nitrite Negative Urine Bilirubin Negative Urine Urobilinogen 0.2 Ur Leukocyte Esterase Negative Urine RBC 20-50 H Urine WBC Negative Ur Epithelial Cells Negative Urine Crystals Negative Urine Bacteria Negative Urine Casts 0-2 Hyaline Urine Mucus Trace Ur Culture Indicated? No Urine Glucose Negative Last Vital Signs Temp 36.3 C L 07/24/23 00:11 Pulse 82 07/24/23 00:11 Resp 17 07/24/23 00:11 BP 103/67 07/24/23 00:11 Pulse Ox 94 07/24/23 00:11 Time Spent Time spent with Patient: >75 minutes Time was spent: preparing to see the patient(eg.review tests), obtaining and/or reviewing separately otained hiistory, ordering medications,tests, procedures, referring, communicating with other health healthcare advisory services manager, indepentently interpreting results and care coordination
[2023-07-24 06:47] LABS: HCT 32.9 % (40.0-50.0); HGB 10.2 g/dL (13.5-17.5); MCV 90 fL (80-95); MPV 9.2 fL (8.0-11.0); Platelet Count 248 10^3/uL (130-400); RBC 3.64 10^6/uL (4.36-5.78); RDW 17.2 % (11.8-14.1); RDW-SD 53.1 fL; WBC 13.96 10^3/uL (4.4-10.8)
[2023-07-24 07:02] LABS: INR 1.1 (0.9-1.1); Prothrombin Time 11.2 sec (9.1-11.1)
[2023-07-24 07:17] LABS: ALT 23 U/L (16-63); AST 28 U/L (15-37); Albumin 2.2 g/dL (3.4-5.0); Alkaline Phosphatase 121 U/L (46-116); Anion Gap 4.7 mmol/L (3-11); BUN 27 mg/dL (7-18); Bilirubin, Total 0.7 mg/dL (0.2-1.0); CO2 30.3 mmol/L (21.0-32.0); CREATININE 0.8 mg/dL (0.70-1.30); Calcium 8.4 mg/dL (8.5-10.1); Chloride 106 mmol/L (98-107); Estimated GFR 91.15 (mL/min/1.73m2); Glucose 80 mg/dL (74-106); Magnesium 2.1 mg/dL (1.8-2.4); Potassium 4.2 mmol/L (3.5-5.1); Sodium 141 mmol/L (136-145); Total Protein 5.8 g/dL (6.4-8.2)
[2023-07-24 07:38] VITALS: BP 107/48; PULSE 78; RESP 17; TEMP 36.9; O2SAT 96
[2023-07-24 07:47] LABS: Procalcitonin 0.4 ng/mL
[2023-07-24] MEDS: Normal Saline Flush 10 ML SYR IVP (07:47)
[2023-07-24] MEDS: Pantoprazole 40 MG VIAL IVP (07:47)
[2023-07-24] MEDS: Thiamine 100 MG TAB PO (07:48)
[2023-07-24] MEDS: Spironolactone 50 MG TAB 100 MG PO (07:48)
[2023-07-24] MEDS: Atorvastatin 40 MG TAB PO (07:48)
--- NOTE | 2023-07-24 07:52 | NUR.NOTE ---
[facility] called regarding pt. Accessed chart to determine disposition. Called transferred to M/S. Nursing Note:
[2023-07-24] MEDS: Budesonide/Formoterol 160/4.5 6 GM 60 PUFF INH IH (08:13)
[2023-07-24 08:15] VITALS: O2SAT 98
[2023-07-24 08:51] VITALS: O2SAT 93
--- NOTE | 2023-07-24 09:08 | UCONE_ITS ---
Date of service: 07/24/23 Time of Service: 09:13 Assessment and Plan Assessment and plan (1) Acute urinary retention: Status: Acute Assessment and plan: The difficulty passing his catheter seems to be related to a bladder neck contracture from his previous prostate surgery. Since his prostate is surgically absent, he would not benefit from an alpha-martell. We would recommend leaving the catheter for at least a week to allow the dilated part of the urethra to heal. We would give him a voiding trial after a week. Given his recent stroke, he may not empty his bladder completely as part of a neurogenic component to his voiding. History of Present Illness History of Present Illness Chief Complaint: Urinary retention Narrative: This is a 77-year-old gentleman who has a history of prostate cancer. He had undergone radical prostatectomy at [facility] over 10 years ago. It is not clear to me if he had an open radical prostatectomy or if the procedure was done laparoscopically. He is admitted to the hospital with a dislocation injury to his right shoulder as well as a stroke. He has had a large bladder volume and the staff has not been able to catheterize him. I been asked to provide catheter drainage. He tells me he is not had much trouble voiding prior to this admission. In fact, he claims that if he was able to stand right now, he believes he be able to void. Review of Systems Narrative: He denies any fever or chills He does complain of right sided shoulder pain and limited movement He admits to frequent falls PFSH All Active Problems (Updated 07/29/23 @ 16:55 by Jonelle Chawla MD) Comfort measures only status (Acute) Decubital ulcer (Acute) Dysphagia causing pulmonary aspiration with swallowing (Acute) Palliative care encounter (Acute) Discharge planning issues (Acute) Weakness (Acute) DVT prophylaxis (Acute) Hill-Sachs fracture of right humerus (Acute) Hypoxic respiratory failure (Acute) Injury of shoulder, right (Acute) Acute urinary retention (Acute) Hypoxia (Acute) Encounter for hospice care (Acute) Muscular deconditioning (Acute) Acute pain of right shoulder (Acute) Need for home health care (Acute) Frequent falls (Chronic) Palliative care patient (Acute) Advance care planning (Acute) Unexplained weight loss (Acute) Osteoporosis (Chronic) Protein calorie malnutrition (Acute) Venous stasis (Acute) Onychomycosis (Acute) At risk for falls (Acute) Inflamed seborrheic keratosis (Acute) Right wrist tendonitis (Acute) Hiatal hernia (Chronic) Noted on 01/17/2021 CT Lung nodules (Acute) Portal hypertension (Acute) Anemia (Chronic) Frailty syndrome in geriatric patient (Chronic) Dysphagia (Chronic) 10/17/2018 EGD [place] Smalls's & interval resolution of esophageal varices seen on previous EGD (see Smalls's dx comments for details); 06/06/2019 Barium Swallow: some dysmotility & aspiration --> referred to Speech Therapy 04/12/20 [facility] [place] Esophageal Manometry; 05/17/2020 EGD: Grade I esophageal varices, duodenal erosions w/o bleeding, no obstructive cause for dysphagia Smalls's esophagus (Chronic) 10/17/2018 EGD ([facility] [place]): esophageal mucosal changes classified as Smalls's stage C0-M1 per [place] criteria (also showed resolution of esophageal varices on carvedilol 6.25 mg BID) Tobacco use disorder (Chronic) 1.5- 2 PPD not interested in quitting 08/2020 Restless leg syndrome (Chronic) Alcohol use disorder (Chronic) not interested in quitting 08/2020 approx 48-60 oz of beer + hard liquor daily Sigmoid diverticulosis (Chronic 02/01/18) 02/01/2018 colonoscopy Incisional hernia, without obstruction or gangrene (Chronic 01/17/18) [facility] [place] [place] consult Hypertension (Chronic 08/01/14) Hyperlipidemia (Chronic 03/24/13) 11/2018 labs: good response to high potency statin, continue Hepatic cirrhosis (Chronic 01/14/18) [facility] [place] 02/24/2018 Fibroscan: stage 4 liver fibrosis, consistent with cirrhosis with possible portal HTN 06/22/2018 EGD (Dr. Hoang): confirmed portal HTN with grade 1 esophageal varices Sodium restriction 2000 mg for ascites control Gastroesophageal reflux disease (Chronic 03/15/13) HH surgery 08/1990 Chronic obstructive lung disease (Chronic 03/15/13) 09/06/2020 PFTs ([facility] [place]): moderate-severe (FEV1 50-59%) Bilateral lower extremity edema (Chronic 01/14/18) Related to cirrhosis BPH w urinary obs/LUTS (Chronic 03/10/13) Rectosphincteric dyssynergia (Chronic) Manifested as fecal incontinence and constipation; resolved with daily fiber supplementation Medical History Femur fracture, left (~02/2021) Other bursitis of elbow, right elbow (01/02/21) Aspiration pneumonia due to regurgitated food Closed fracture of left orbit Fracture of nasal bone Periprosthetic fracture around internal prosthetic left hip joint C3 cervical fracture Intertrochanteric fracture of left femur Family history of malignant melanoma ov note dated 05/10/20-Dr. Hale Squamous cell carcinoma Face Basal cell carcinoma (BCC) Face Hydrocele of testis (03/24/13) S/p repair L; then occurred on R side and now chronic Rotator cuff syndrome (03/24/13) S/p B/L repair Esophageal varices 06/22/2017 EGD (Dr. Hoang): grade 1 w/ stigmata of bleeding; 10/17/2018 EGD ([facility] [place] no evidence of esophageal or gastric varices on carvedilol 6.25 mg BID History of basal cell carcinoma Incontinence of feces Malignant neoplasm of prostate GERD (gastroesophageal reflux disease) 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 Hale Derm Surgical History S/P skin biopsy (~09/2020) R inguinal fold on margins of scrotum-Dr Hale H/O endoscopy 05/17/20 [facility] [place] H/O colonoscopy 05/17/20 at [facility] [place] - no need for further to have any further colonscopy per report History of esophagogastroduodenoscopy (EGD) (06/22/18) dr hoang, grade I esophageal varices right shoulder (03/24/00) Repair of incision from Marci fundoplication (03/24/87) Prostatectomy (~05/2007) Marci Fundoplication (03/24/85) Left shoulder (09/24/07) Family History Mother , resp failure due to COPD age 69 COPD (chronic obstructive pulmonary disease) Smoker Father , widespread cancer age 73 Personal history of malignant neoplasm prostate Malignant melanoma Smoker Prostate cancer COPD (chronic obstructive pulmonary disease) Son No problems noted. Daughter No problems noted. Brother , age 68 from COPD COPD (chronic obstructive pulmonary disease) Smoker Sister , age 62 from pancreatic cancer Smoker Pancreatic cancer Social History Smoking/Tobacco Use Status: Current every day Tobacco Type: cigarettes Tobacco: How many years used: 60 Quit status: has quit before Second Hand Exposure: No Counseling given: counseling >3 minutes Smoking risk assessment performed?: Yes Alcohol Intake: current Alcohol Intake frequency: 3 or more drinks per day Alcohol type: beer and hard liquor Counseling provided: other Drug use: Never Substance use type: does not use Counseling provided: provider counseling Caregiver/Support person: No Household members: none Housing: house Number of Children: 2 number of grandchildren: 3 Communication Needs: Corrective Lenses Education Level: high school Do you need help understanding health information?: Often 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; 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 Do you think of yourself as: straight/heterosexual Current gender identity: male What is your relationship status?: How often do you talk on the phone with friends or family?: once per week How often do you get together with friends or relatives?: once per week Panel score (0-1 are the most socially isolated patients): 0 What type of physical activity do you participate in: none Special tg needs: No Agree to transfusion: No Seatbelt use: always Water heater temp set <120 deg: Yes Working smoke detector in home: Yes Fire extinguisher in home: Yes Carbon monox detector in home: Yes Firearms in home: No Do you feel safe at home: Yes Do you feel safe in your relationship?: Yes Additional Social history: lives at home alone [place] 07/23/23 Exam Narrative Exam Narrative: He is quite dry [place] His vital signs are documented elsewhere His abdomen shows healed surgical scars with a large reducible abdominal hernia There is suprapubic tenderness but no peritoneal signs He is circumcised He is awake and alert Results Last Vital Signs Temp 36.9 C 07/24/23 07:38 Pulse 78 07/24/23 07:38 Resp 17 07/24/23 07:38 BP 107/48 L 07/24/23 07:38 Pulse Ox 93 07/24/23 08:51 Labs 07/25/23 06:10 07/25/23 12:08 Labs: Laboratory Results - last 24 hr 07/23/23 07/23/23 07/23/23 14:15 15:55 17:25 WBC 12.46 H RBC 4.02 L Hgb 11.4 L Hct 36.5 L MCV 91 MCH 28.4 MCHC 31.2 L RDW 17.2 H Plt Count 287 MPV 9.0 Immature Gran % 2.4 Neutrophils % 84.7 Lymphocytes % 4.3 Monocytes % 8.2 Eosinophils % 0.2 Basophils % 0.2 Nucleated RBC % 0.0 Absolute Neutrophils 10.55 H Absolute Lymphocytes 0.54 L Absolute Monocytes 1.02 H Absolute Eosinophils 0.02 Absolute Basophils 0.02 PT INR VBG pH 7.35 VBG pCO2 51 VBG pO2 41 VBG HCO3 28 VBG Total CO2 27 VBG O2 Saturation 70 VBG Base Excess 2 Sodium 139 Potassium 4.5 Chloride 103 Carbon Dioxide 29.0 Anion Gap 7.0 BUN 36 H Creatinine 1.0 Est GFR (CKD-EPI 2020) 77.52 Glucose 104 Calcium 9.4 Magnesium 2.4 Total Bilirubin 0.7 AST 33 ALT 32 Alkaline Phosphatase 150 H Ammonia 19 Troponin I < 50 < 50 Total Protein 7.5 Albumin 3.1 L Procalcitonin TSH 2.80 Urine Color Urine Clarity Urine pH Ur Specific [place] Urine Protein Urine Ketones Urine Blood Urine Nitrite Urine Bilirubin Urine Urobilinogen Ur Leukocyte Esterase Urine RBC Urine WBC Ur Epithelial Cells Urine Crystals Urine Bacteria Urine Casts Urine Mucus Ur Culture Indicated? Urine Glucose 07/23/23 07/24/23 20:08 06:00 WBC 13.96 H RBC 3.64 L Hgb 10.2 L Hct 32.9 L MCV 90 MCH 28.0 MCHC 31.0 L RDW 17.2 H Plt Count 248 MPV 9.2 Immature Gran % Neutrophils % Lymphocytes % Monocytes % Eosinophils % Basophils % Nucleated RBC % Absolute Neutrophils Absolute Lymphocytes Absolute Monocytes Absolute Eosinophils Absolute Basophils PT 11.2 H INR 1.1 VBG pH VBG pCO2 VBG pO2 VBG HCO3 VBG Total CO2 VBG O2 Saturation VBG Base Excess Sodium 141 Potassium 4.2 Chloride 106 Carbon Dioxide 30.3 Anion Gap 4.7 BUN 27 H Creatinine 0.8 Est GFR (CKD-EPI 2020) 91.15 Glucose 80 Calcium 8.4 L Magnesium 2.1 Total Bilirubin 0.7 AST 28 ALT 23 Alkaline Phosphatase 121 H Ammonia Troponin I Total Protein 5.8 L Albumin 2.2 L Procalcitonin 0.4 TSH Urine Color Yellow Urine Clarity Clear Urine pH 5.5 Ur Specific [place] 1.015 Urine Protein Trace H Urine Ketones Negative Urine Blood Large H Urine Nitrite Negative Urine Bilirubin Negative Urine Urobilinogen 0.2 Ur Leukocyte Esterase Negative Urine RBC 20-50 H Urine WBC Negative Ur Epithelial Cells Negative Urine Crystals Negative Urine Bacteria Negative Urine Casts 0-2 Hyaline Urine Mucus Trace Ur Culture Indicated? No Urine Glucose Negative Insert Bladder Catheter Text: The patient was seen and at his bedside. He was in the supine position. His genitalia was prepped with Betadine. 2% Xylocaine jelly was instilled into the urethra to act as a local anesthetic. Initially I attempted to pass a 16 [place] coud? tip catheter. The catheter could be advanced to the region of the bladder neck but I could not advance the catheter any further. I then removed the catheter and passed a Glidewire through the urethra. The wire seemed to pass through the bladder neck well. I then passed an 18 [place] tip catheter over the guidewire. The wire was removed and the catheter balloon was inflated with 10 cc of sterile water. The catheter was hooked to gravity drainage. Over 500 cc of clear urine was obtained. The patient tolerated this procedure well.
[2023-07-24] MEDS: Ketorolac 15 MG/ML VIAL IVP (09:14)
[2023-07-24] MEDS: ACETAMINOPHEN 1,000 MG/100 ML BTL 400 MG IVPB (09:15)
--- NOTE | 2023-07-24 09:21 | W.PM.PROGNOT ---
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 Will get MRI of brain on Wednesday along w/ echocardiogram w/ bubble study, continue aspirin suppository, obtain neurology consult on Wednesday along w/ FLOOR CLERK and PT and OT consults. When able to safely swallow meds then will begin atorvastatin. Patient will likely need SNF at least short term for rehab from CVA as well as shoulder injury Professional time spent interviewing and examining patient, discussion of goals of care with hospital team (care management, nursing and consulting professionals) was 90 minutes, including discussion with the safety and skill based pay manager close multiple calls to [facility] Ortho and [facility] Ortho as well as discussion with Dr. Beckman and nursing as well as examination and placement of orders and documentation of my findings, and arranging transfer to [facility] for shoulder reduction. (2) Hill-Sachs fracture of right humerus: Status: Acute Assessment and plan: recent per patient. has had frequent falls w/ most recent 3 days ago, associated w/ acute pain and disuse of shoulder. Dr. Jeffers, ortho from [facility] has agreed to reduce the shoulder in the ED at [facility]. Patient will then return to [facility]. I will get our ortho to follow up w/ him on Wednesday when they return. I have added routine APAP and prn ketorolac and prn morphine for his pain. lidocaine patches were added by the safety and skill based pay manager. Qualifiers: Encounter type: initial encounter Fracture type: closed Qualified Code(s): S42.291A - Other displaced fracture of upper end of right humerus, initial encounter for closed fracture (3) Frequent falls: Status: Chronic (4) Hypoxic respiratory failure: Start date: 07/23/23 Status: Acute Assessment and plan: No infiltrates on CXR, although he has COPD but has not been on home oxygen. Encourage cough and deep breathing, incentive spirometer. Will place on Spiriva and prn DuoNeb. Qualifiers: Chronicity: acute on chronic Qualified Code(s): J96.21 - Acute and chronic respiratory failure with hypoxia (5) Acute urinary retention: Start date: 07/23/23 Status: Acute Assessment and plan: remote hx of prostate cancer surgically treated at [facility] per patient, done years ago. No problem until recently. Duque has been placed. In light of his hematuria and leukocytosis, I have ordered empiric treatment w/ Rocephin. (6) Hepatic cirrhosis: Status: Chronic Assessment and plan: transaminases essentially normal although his protime is mildly eleveted (11.2, INR 1.1) and low albumin and total protein. I will request nutrition consult, have FLOOR CLERK see him about his swallowing. trial on dysphagia diet but if he has any choking/coughing spells w/ meals then will make him NPO until FLOOR CLERK sees him. Qualifiers: Hepatic cirrhosis type: alcoholic cirrhosis Ascites presence: without ascites Qualified Code(s): K70.30 - Alcoholic cirrhosis of liver without ascites (7) Alcohol use disorder: Status: Chronic Assessment and plan: will check B12, folate levels and treat empirically. No hx of acute withdrawal. will monitor w/ CIWA scoring but otherwise not treat w/ benzodiazepines or methadone routinely. (8) DVT prophylaxis: Status: Acute Subjective Subjective Interval history since last seen: 77-year-old male with a history of COPD, alcoholism, alcoholic cirrhosis who continues to drink one 12 ounce beer along with one 2 ounce rum and coke per day. He is and lives alone in his own home in [facility] and normally gets around with a cane or a walker but states that he fell 2 to 3 days ago and complains of right shoulder pain. He also complains of generalized weakness and weight loss. Evaluation emergency department last night revealed that he had a Hill-Sachs fracture of his right shoulder with anterior dislocation and had evidence of a right pontine CVA of indeterminate age. He was also found to have acute urinary retention and although they did straight cath and they did not place a Duque catheter and last night and multiple attempts to place a Duque overnight were unsuccessful. This morning Dr. Beckman came in and placed a Duque catheter. He does have some hematuria that appears to be clearing up. Urine is cloudy. Urine culture will be sent. He is afebrile but has a leukocytosis and he will be started on ceftriaxone empirically for UTI. Furthermore multiple attempts were made to reduce his shoulder last night emergency department unsuccessfully. Calls were placed by the ED provider to both [facility] in [facility] as well as [facility] in [facility]. Ortho was consulted at both places because there was no orthopedic coverage here at [facility]. [facility] did not have capacity to take the patient in transfer last night. [facility] was contacted and our ED provider spoke w/ Dr. Jeffers, ortho at [facility]. Per ED provider's notes, exam was inconsistent w/ dislocation and after 3 attempts at reduction which were unsuccessful and after our ED provider contacted Dr. Jeffers who reportedly did not see a dislocation on the plain films, no further reduction attempts were made and no attempts at transfer were made. CT/CTA head and neck, ED and safety and skill based pay manager report right pontine CVA of indeterminate age, however, official CTA report does not confirm this. CTA shows small vascular white matter disease, atherosclerosis of origins of LICA and JONO but less than 50%. Patient was noted to have acute urinary retention and although patient was straight cath for UA a duque was not placed and when attempts were made to place a Coude cathether this was unsuccessful. Patient was begun on aspirin suppository as he was noted to have choking w/ pills last night. I have spoke both / [facility] transfer center, w/ Dr. Ajith Cannon, orthopedic resident who went over the patient's CT of his right upper extremity and confirmed an anterior dislocation of the right shoulder and reviewed the films with his attending Dr. Scott. I then called [facility] and requested a consultation with the orthopedic surgeon Dr. Jeffers who reviewed the CAT scan findings which she did not have available to him last night and concurs that there is an anterior dislocation consistent with a Hill-Sachs deformity. Dr. Jeffers indicated he can take the patient over to [facility] and do a reduction in the emergency department after which patient would return to [facility] for further follow-up care. I spoke with Dr. Smith, ED provider, at [facility] who agreed to take the patient over to the emergency department where she would have Dr. Jeffers meet with the patient and performed shoulder reduction. Patient is agreeable to transfer for acute shoulder reduction. I called [facility] back and indicated that [facility] will take the patient for an over and back procedure. Exam Narrative Exam Narrative: Cachectic appearing elderly white male appears older than his stated age of 77. He is unshaven. He has multiple skin abrasions over his shins and his arms and has Mepilex patches on the abrasions. He has significant loss of muscle mass over his chest and neck and arms. HEENT is remarkable for poor dentition dry mucous membranes. Neck veins are flat Right shoulder is anterior dislocation with the head of the humerus protruding anteriorly and downward from the glenoid fossa. Patient has abnormal range of motion right arm he is unable to abduct the arm nor is he able to raise arm over his head. He has good movement of the right hand and wrist with no apparent loss of strength in the right hand. He has normal range of motion of his left arm. Lungs are clear however diffusely diminished without rhonchi rales or wheezes Heart is regular rate and rhythm no appreciable murmur rub Abdomen is scaphoid soft and nontender with palpably enlarged liver and he has an abdominal wall hernia that reduces easily. Duque catheter has been placed by Dr. Beckman and has cloudy urine with some hematuria. Extremities trace of pedal edema Neurologically he seems to be intact from a cognitive standpoint. He knows he is at [facility] and he knows that he lives in [facility] he is aware of the month and the year. He was able to give me details about his 2 children including a daughter who lives in [place] who works for an international aid agency and his son who lives in [place] sounds like he is a sound recordist. Objective Last Vital Signs Temp 36.9 C 07/24/23 07:38 Pulse 78 07/24/23 07:38 Resp 17 07/24/23 07:38 BP 107/48 L 07/24/23 07:38 Pulse Ox 93 07/24/23 08:51 Laboratory Results - last 24 hr 07/23/23 07/23/23 07/23/23 14:15 15:55 17:25 WBC 12.46 H RBC 4.02 L Hgb 11.4 L Hct 36.5 L MCV 91 MCH 28.4 MCHC 31.2 L RDW 17.2 H Plt Count 287 MPV 9.0 Immature Gran % 2.4 Neutrophils % 84.7 Lymphocytes % 4.3 Monocytes % 8.2 Eosinophils % 0.2 Basophils % 0.2 Nucleated RBC % 0.0 Absolute Neutrophils 10.55 H Absolute Lymphocytes 0.54 L Absolute Monocytes 1.02 H Absolute Eosinophils 0.02 Absolute Basophils 0.02 PT INR VBG pH 7.35 VBG pCO2 51 VBG pO2 41 VBG HCO3 28 VBG Total CO2 27 VBG O2 Saturation 70 VBG Base Excess 2 Sodium 139 Potassium 4.5 Chloride 103 Carbon Dioxide 29.0 Anion Gap 7.0 BUN 36 H Creatinine 1.0 Est GFR (CKD-EPI 2020) 77.52 Glucose 104 Calcium 9.4 Magnesium 2.4 Total Bilirubin 0.7 AST 33 ALT 32 Alkaline Phosphatase 150 H Ammonia 19 Troponin I < 50 < 50 Total Protein 7.5 Albumin 3.1 L Procalcitonin TSH 2.80 Urine Color Urine Clarity Urine pH Ur Specific [place] Urine Protein Urine Ketones Urine Blood Urine Nitrite Urine Bilirubin Urine Urobilinogen Ur Leukocyte Esterase Urine RBC Urine WBC Ur Epithelial Cells Urine Crystals Urine Bacteria Urine Casts Urine Mucus Ur Culture Indicated? Urine Glucose 07/23/23 07/24/23 20:08 06:00 WBC 13.96 H RBC 3.64 L Hgb 10.2 L Hct 32.9 L MCV 90 MCH 28.0 MCHC 31.0 L RDW 17.2 H Plt Count 248 MPV 9.2 Immature Gran % Neutrophils % Lymphocytes % Monocytes % Eosinophils % Basophils % Nucleated RBC % Absolute Neutrophils Absolute Lymphocytes Absolute Monocytes Absolute Eosinophils Absolute Basophils PT 11.2 H INR 1.1 VBG pH VBG pCO2 VBG pO2 VBG HCO3 VBG Total CO2 VBG O2 Saturation VBG Base Excess Sodium 141 Potassium 4.2 Chloride 106 Carbon Dioxide 30.3 Anion Gap 4.7 BUN 27 H Creatinine 0.8 Est GFR (CKD-EPI 2020) 91.15 Glucose 80 Calcium 8.4 L Magnesium 2.1 Total Bilirubin 0.7 AST 28 ALT 23 Alkaline Phosphatase 121 H Ammonia Troponin I Total Protein 5.8 L Albumin 2.2 L Procalcitonin 0.4 TSH Urine Color Yellow Urine Clarity Clear Urine pH 5.5 Ur Specific [place] 1.015 Urine Protein Trace H Urine Ketones Negative Urine Blood Large H Urine Nitrite Negative Urine Bilirubin Negative Urine Urobilinogen 0.2 Ur Leukocyte Esterase Negative Urine RBC 20-50 H Urine WBC Negative Ur Epithelial Cells Negative Urine Crystals Negative Urine Bacteria Negative Urine Casts 0-2 Hyaline Urine Mucus Trace Ur Culture Indicated? No Urine Glucose Negative Time Spent with Patient Time Spent with Patient: >50 minutes Time was spent: preparing to see the patient(eg.review tests), obtaining and/or reviewing separately [facility], ordering medications,tests, procedures, referring, communicating with other health healthcare corporate account director, indepentently interpreting results, counseling the patient and care coordination
[2023-07-24 09:26] VITALS: O2SAT 100
[2023-07-24] MEDS: cefTRIAXone 2 GM/50 ML BAG IVPB (09:46)
[2023-07-24 10:32] LABS: Lab Add On Test DONE
--- NOTE | 2023-07-24 10:38 | NUR.NOTE ---
Pt was transported via EMS to [facility] for right shoulder. Pt verbally consented to be transported to [facility] this am around 1030.. Red was placed by Dr. Beckman. Nursing Note:
--- NOTE | 2023-07-24 10:39 | NT_ITS ---
PT Notes Visit Reasons: Right CVA, Shoulder pain, UR, Respiratory... Attempted PT consult this morning, however Severino was out of the hospital for an out and back treatment at [facility] for relocation of right shoulder. Will plan to evaluate tomorrow if appropriate.
[2023-07-24 10:40] LABS: Hemoglobin A1C 5.5 % (<5.7)
[2023-07-24 11:15] LABS: Folate 5.9 ng/mL (8.6-20.0)
[2023-07-24 11:31] LABS: Vitamin B12 > 2000 pg/mL (193-986)
--- NOTE | 2023-07-24 16:13 | PDOC.CMIN ---
Date of service: 07/24/23 Time of Service: 16:13 Care Management Initial Assmt Initial Assessment REASON FOR HOSPITALIZATION:: Right CVA, shoulder pain (R relocation), UR, Respiratory PREVIOUS FUNCTIONAL STATUS/SOCIAL/FAMILY SUPPORTS:: David Haq is a 77 y/o male dx hepatic cirrhosis, COPD, h/o FTT; PMHx sig for cachexia, osteoporosis, venous stasis, AK/SK, lung nodules, portal HTN, anemia, dysphagia w/Smalls's esophagus, tobacco and alcohol use disorder, abdominal hernia, HTN, BPH. Severino resides alone in [facility], he has adult children in [place] and [place]. His son, Trey tele-monitors him and noted he was unable to get out of his chair for more than 24 hours. Bridgett [facility] RN at [facility] spoke with Trey over the phone prior to admission. Per Bridgett's note and chart review, bryan Haq has home health services [facility] memory care director and aides coming in 3x a week. He also pays privately for 3x/wk meal prep and housekeeping services. CURRENT FUNCTIONAL STATUS:: Severino was brought by EMS to [facility] for down and back procedure; shoulder relocation. CM continues to follow. ADVANCE DIRECTIVES:: On file; Trey as agent, Genna as alternate. Has patient been provided with info about the portal/API?: Yes Did the patient sign up for the portal?: No CODE STATUS:: DNR/DNI INSURANCE COVERAGE / FINANCIAL ISSUES:: [place], [place]/ [place] CURRENT HOME/COMMUNITY SERVICES/EQUIPMENT:: Palliative potential hospice diagnosis w/cachexia, c/b COPD, cirrhosis w/active AUD. [facility] memory care director, aide. Private caregiver for 3x/wk meal prep and housekeeping services. PRIMARY CARE PHYSICIAN:: Asher Jeter, followed by [facility] Bridgett, as well. POTENTIAL DISCHARGE NEEDS:: Resume home health, possible SNF placement. PATIENT/FAMILY EDUCATION NEEDS:: Review discharge recommendations, discuss self care needs upon discharge Ask Me Three. ANTICIPATED BARRIERS TO DISCHARGE:: None identified at this time. TRANSPORTATION:: Dependent on mobility and disposition. PLAN:: Severino remains inpatient, awaiting PT recommendations to inform discharge planning considerations. CM continues to follow. PFSH All Active Problems (Updated 07/26/23 @ 14:50 by Diogenes Drew MD) Discharge planning issues (Acute) Weakness (Acute) DVT prophylaxis (Acute) Hill-Sachs fracture of right humerus (Acute) Hypoxic respiratory failure (Acute) Injury of shoulder, right (Acute) Acute urinary retention (Acute) Hypoxia (Acute) Encounter for hospice care (Acute) Muscular deconditioning (Acute) Acute pain of right shoulder (Acute) Need for home health care (Acute) Frequent falls (Chronic) Palliative care patient (Acute) Advance care planning (Acute) Unexplained weight loss (Acute) Osteoporosis (Chronic) Protein calorie malnutrition (Acute) Venous stasis (Acute) Onychomycosis (Acute) At risk for falls (Acute) Inflamed seborrheic keratosis (Acute) Right wrist tendonitis (Acute) Hiatal hernia (Chronic) Noted on 01/17/2021 CT Lung nodules (Acute) Portal hypertension (Acute) Anemia (Chronic) Frailty syndrome in geriatric patient (Chronic) Dysphagia (Chronic) 10/17/2018 E[place] Smalls's & interval resolution of esophageal varices seen on previous EGD (see Smalls's dx comments for details); 06/06/2019 Barium Swallow: some dysmotility & aspiration --> referred to Speech Therapy 04/12/20 [facility] Esophageal Manometry; 05/17/2020 EGD: Grade I esophageal varices, duodenal erosions w/o bleeding, no obstructive cause for dysphagia Smalls's esophagus (Chronic) 10/17/2018 EGD ([facility] esophageal mucosal changes classified as Smalls's stage C0-M1 per [place] criteria (also showed resolution of esophageal varices on carvedilol 6.25 mg BID) Tobacco use disorder (Chronic) 1.5- 2 PPD not interested in quitting 08/2020 Restless leg syndrome (Chronic) Alcohol use disorder (Chronic) not interested in quitting 08/2020 approx 48-60 oz of beer + hard liquor daily Sigmoid diverticulosis (Chronic 02/01/18) 02/01/2018 colonoscopy Incisional hernia, without obstruction or gangrene (Chronic 01/17/18) [facility] GI consult Hypertension (Chronic 08/01/14) Hyperlipidemia (Chronic 03/24/13) 11/2018 labs: good response to high potency statin, continue Hepatic cirrhosis (Chronic 01/14/18) [facility] GI 02/24/2018 Fibroscan: stage 4 liver fibrosis, consistent with cirrhosis with possible portal HTN 06/22/2018 EGD (Dr. Hoang): confirmed portal HTN with grade 1 esophageal varices Sodium restriction 2000 mg for ascites control Gastroesophageal reflux disease (Chronic 03/15/13) HH surgery 08/1990 Chronic obstructive lung disease (Chronic 03/15/13) 09/06/2020 PFTs ([facility] moderate-severe (FEV1 50-59%) Bilateral lower extremity edema (Chronic 01/14/18) Related to cirrhosis BPH w urinary obs/LUTS (Chronic 03/10/13) Rectosphincteric dyssynergia (Chronic) Manifested as fecal incontinence and constipation; resolved with daily fiber supplementation Medical History Femur fracture, left (~02/2021) Other bursitis of elbow, right elbow (01/02/21) Aspiration pneumonia due to regurgitated food Closed fracture of left orbit Fracture of nasal bone Periprosthetic fracture around internal prosthetic left hip joint C3 cervical fracture Intertrochanteric fracture of left femur Family history of malignant melanoma ov note dated 05/10/20-Dr. Hale Squamous cell carcinoma Face Basal cell carcinoma (BCC) Face Hydrocele of testis (03/24/13) S/p repair L; then occurred on R side and now chronic Rotator cuff syndrome (03/24/13) S/p B/L repair Esophageal varices 06/22/2017 EGD (Dr. Hoang): grade 1 w/ stigmata of bleeding; 10/17/2018 EGD ([facility] no evidence of esophageal or gastric varices on carvedilol 6.25 mg BID History of basal cell carcinoma Incontinence of feces Malignant neoplasm of prostate GERD (gastroesophageal reflux disease) 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 Hale Derm Surgical History S/P skin biopsy (~09/2020) R inguinal fold on margins of scrotum-Dr Hale H/O endoscopy 05/17/20 [facility] H/O colonoscopy 05/17/20 at [facility] - no need for further to have any further colonscopy per report History of esophagogastroduodenoscopy (EGD) (06/22/18) dr hoang, grade I esophageal varices right shoulder (03/24/00) Repair of incision from Marci fundoplication (03/24/87) Prostatectomy () Marci Fundoplication (03/24/85) Left shoulder (09/24/07) Family History Mother , resp failure due to COPD age 69 COPD (chronic obstructive pulmonary disease) Smoker Father , widespread cancer age 73 Personal history of malignant neoplasm prostate Malignant melanoma Smoker Prostate cancer COPD (chronic obstructive pulmonary disease) Son No problems noted. Daughter No problems noted. Brother , age 68 from COPD COPD (chronic obstructive pulmonary disease) Smoker Sister , age 62 from pancreatic cancer Smoker Pancreatic cancer Social History Smoking/Tobacco Use Status: Current every day Tobacco Type: cigarettes Tobacco: How many years used: 60 Quit status: has quit before Second Hand Exposure: No Counseling given: counseling >3 minutes Smoking risk assessment performed?: Yes Alcohol Intake: current Alcohol Intake frequency: 3 or more drinks per day Alcohol type: beer and hard liquor Counseling provided: other Drug use: Never Substance use type: does not use Counseling provided: provider counseling Caregiver/Support person: No Household members: none Housing: house Number of Children: 2 number of grandchildren: 3 Communication Needs: Corrective Lenses Education Level: high school Do you need help understanding health information?: Often 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; 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 Do you think of yourself as: straight/heterosexual Current gender identity: male What is your relationship status?: How often do you talk on the phone with friends or family?: once per week How often do you get together with friends or relatives?: once per week Panel score (0-1 are the most socially isolated patients): 0 What type of physical activity do you participate in: none Special tg needs: No Agree to transfusion: No Seatbelt use: always Water heater temp set <120 deg: Yes Working smoke detector in home: Yes Fire extinguisher in home: Yes Carbon monox detector in home: Yes Firearms in home: No Do you feel safe at home: Yes Do you feel safe in your relationship?: Yes Additional Social history: lives at home alone [place] 07/23/23
[2023-07-25] VITALS (13 sets, daily range): BP systolic 97–105; BP diastolic 48–66; PULSE 66–85; RESP 9–20; TEMP 35.7–36.4; O2SAT 91–100
[2023-07-25] MEDS: Budesonide/Formoterol 160/4.5 6 GM 60 PUFF INH IH ×3 (00:19→19:51)
[2023-07-25] MEDS: Normal Saline Flush 10 ML SYR IVP ×4 (00:22→10:01)
[2023-07-25] MEDS: MAGNESIUM SULFATE 8.12 MEQ, MULTIVITAMIN 10 ML, THIAMINE 100 MG, FOLIC ACID 1 MG in Nor... 168.867 MG IV (00:23)
[2023-07-25] MEDS: ACETAMINOPHEN 1,000 MG/100 ML BTL 400 MG IVPB ×3 (01:48→16:58)
[2023-07-25 07:27] LABS: Calculated LDL 48 mg/dL (<100); Cholesterol 96 mg/dL (<200); HDL Cholesterol 36 mg/dL (40-60); Triglyceride 63 mg/dL (<150)
[2023-07-25] MEDS: Tiotropium Bromide-Respimat 10 PUFF INH 2 PUFF IH (09:11)
[2023-07-25] MEDS: Aspirin 300 MG SUPP PR (09:54)
[2023-07-25] MEDS: Pantoprazole 40 MG VIAL IVP (09:54)
[2023-07-25] MEDS: Lactated Ringers 1,000 ML 75 ML IV (09:55)
[2023-07-25] MEDS: cefTRIAXone 1 GM/50 ML BAG IVPB (10:41)
--- NOTE | 2023-07-25 11:04 | IN_ITS ---
PT Notes Visit Reasons: Right CVA, Shoulder pain, UR, Respiratory... Physical Therapy Inpatient Initial Evaluation Date: 07/25/2023 Referring Doctor: Hamzah Bahena MD PT Orders: PT CONSULT: Fall safety assessment Precautions: Fall. Standard. NWB on the R UE until cleared by orthopedic surg aleja/hospitalist. Sling on when OOB. NPO as of today. Patient Profile/Admitting Diagnosis: Severino is a 77-year-old male patient admitted on 07/23/2023 for management of acute R pontine CVA, HIll-Scahs fracture of the R humersus sustained from a mechnanical fall S/P closed reduction at [facility] on POD 1, freuent falls, hypoxic respiratory failure, hepatic cirrhosis, and ETOH use disorder. PMHX: All Active Problems Hypoxic respiratory failure (Acute) Injury of shoulder, right (Acute) Acute urinary retention (Acute) Hypoxia (Acute) Acute CVA (cerebrovascular accident) (Acute) Encounter for hospice care (Acute) Muscular deconditioning (Acute) Acute pain of right shoulder (Acute) Need for home health care (Acute) Frequent falls (Chronic) Palliative care patient (Acute) Advance care planning (Acute) Unexplained weight loss (Acute) Osteoporosis (Chronic) Protein calorie malnutrition (Acute) Venous stasis (Acute) Onychomycosis (Acute) At risk for falls (Acute) Inflamed seborrheic keratosis (Acute) Right wrist tendonitis (Acute) Hiatal hernia (Chronic) Noted on 01/17/2021 CTLung nodules (Acute) Portal hypertension (Acute) Anemia (Chronic) Frailty syndrome in geriatric patient (Chronic) Dysphagia (Chronic) 10/17/2018 [place] [place] Smalls's & interval resolution of esophageal varices seen on previous EGD (see Smalls's dx comments for details); Barium Swallow: some dysmotility & aspiration --> referred to Speech Therapy 04/12/20 [facility]; 05/17/2020 EGD: Grade I esophageal varices, duodenal erosions w/o bleeding, no obstructive cause for dysphagia Smalls's esophagus (Chronic) 10/17/2018 [place] [place] esophageal mucosal changes classified as Smalls's stage C0-M1 per [place] criteria (also showed resolution of esophageal varices on carvedilol 6.25 mg BID Tobacco use disorder (Chronic) 1.5- 2 PPD not interested in quitting 08/2020 Restless leg syndrome (Chronic) Alcohol use disorder (Chronic) not interested in quitting 08/2020 approx 48-60 oz of beer + hard liquor daily Sigmoid diverticulosis (Chronic 02/01/18) 02/01/2018 colonoscopy Incisional hernia, without obstruction or gangrene (Chronic 01/17/18) [facility] [place] Hypertension (Chronic 08/01/14) Hyperlipidemia (Chronic 03/24/13) 11/2018 labs: good response to high potency statin, continue Hepatic cirrhosis (Chronic 01/14/18) [facility] [place] 02/24/2018 Fibroscan: stage 4 liver fibrosis, consistent with cirrhosis with possible portal HTN 06/22/2018 EGD (Dr. Hoang): confirmed portal HTN with grade 1 esophageal varices Sodium restriction 2000 mg for ascites controlGastroesophageal reflux disease (Chronic 03/15/13) HH surgery 08/1990 Chronic obstructive lung disease (Chronic 03/15/13) 09/06/2020 [place] [place] moderate-severe (FEV1 50-59%) Bilateral lower extremity edema (Chronic 01/14/18) Related to cirrhosis BPH w urinary obs/LUTS (Chronic 03/10/13) Rectosphincteric dyssynergia (Chronic) Manifested as fecal incontinence and constipation; resolved with daily fiber supplementation Medical History Femur fracture, left (~02/2021) Other bursitis of elbow, right elbow (01/02/21) Aspiration pneumonia due to regurgitated food Closed fracture of left orbit Fracture of nasal bone Periprosthetic fracture around internal prosthetic left hip joint C3 cervical fracture Intertrochanteric fracture of left femur Family history of malignant melanoma ov note dated 05/10/20-Dr. Hale Squamous cell carcinoma FaceBasal cell carcinoma (BCC) FaceHydrocele of testis (03/24/13) S/p repair L; then occurred on R side and now chronic Rotator cuff syndrome (03/24/13) S/p B/L repair Esophageal varices 06/22/2017 EGD (Dr. 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 Hale Derm Surgical History S/P skin biopsy (~09/2020) R inguinal fold on margins of scrotum-Dr Hale H/O endoscopy 05/17/20 [facility]17/20 [place] [facility] [place] no need for further to have any further colonscopy per report History of esophagogastroduodenoscopy (EGD) (06/22/18) dr hoang, grade I esophageal varicesright shoulder (03/24/00) Repair of incision from Marci fundoplication (03/24/87) Prostatectomy (~05/2007) Marci Fundoplication (03/24/85) Left shoulder (09/24/07) Social History/Home Situation: Lives alone in a private home. Gets meals on wheels 7 days a week. Also has caregivers who came to his house to help with chores. Use s [employer] walker to get around the house. No longer drives. Per chart, patient consumes one 12-oz beer and 2 ounces of rum and coke steve day. Equipment Owned/DME: [facility], [facility] Subjective: Give me water. I need even just a cup of cereal please... Feeling thirsty and hungrysincehe was made NPO earlier today. Nurse Etta made aware. Complained of considerable weakness needing extensive help to move. R shoulder feeling much better this morning. Objective: General Observation: Supine in bed. Sling on R out of place, readjusted by PT. IV through L UE. Telemetry monitoring in place. B LE swelling, L more affected. B legs with small scabbed areas. Mental Status: Alert and oriented as to person, place, time, and purpose. Able to pay attention, focus, and respond appropriately. Pain: Generalized pain Vital Signs: Closely monitored via tele ROM: Right Upper Extremity: Shoulder Flexion NT. Shoulder abduction NT. Elbow flexion WFL. Wrist flexion WFL. Functional opening and closing of hand WFL. Left Upper Extremity: Shoulder Flexion lacks the last 50% of AROM. Shoulder abduction lacks the last 50% of AROM. Elbow flexion WFL. Wrist flexion WFL. Functional opening and closing of hand weak but functional. Right Lower Extremity: Hip flexion lacks the last 50% of AROM. Hip abduction lacks the last 50% of AROM. Knee flexion 30 to 90 degrees. Knee extension -30 degrees. Ankle dorsiflexion to neutral only. Ankle plantarflexion WFL. Left Lower Extremity: Hip flexion lacks the last 75% of AROM. Hip abduction lacks the last 75% of AROM. Knee flexion 45to 90 degrees. Knee extension -45 degrees. Ankle dorsiflexion to neutral only. Ankle plantarflexion WFL. Strength: Right Upper Extremity: Shoulder flexors NT. Shoulder abductors NT. Elbow flexors 3/5. Elbow extensors 3/5. Hemmer Lockstitch strong. Left Upper Extremity: Shoulder flexors 3-/5. Shoulder abductors 3-/5. Elbow flexors 3/5. Elbow extensors 3/5. Hemmer Lockstitch strong. Right Lower Extremity: Hip flexors 3-/5. Hip abductors 3-/5. Knee flexors 3-/5. Knee extensors 3-/5. Ankle dorsiflexors 3-/5. Ankle plantarflexors 4-/5. Left Lower Extremity:Hip flexors 3-/5. Hip abductors 3-/5. Knee flexors 3-/5. Knee extensors 3-/5. Ankle dorsiflexors 3-/5. Ankle plantarflexors 4-/5. Bed Mobility/Transfers: Moderate to maximal cueing provided for movement sequence, hand placement, hemiwalker use, and posture to reduce fall isk and minimize pain complaint. Rolling moderate assist of 2 Supine to sit moderate assist of 2 Sit to stand moderate assist of 2 Stand to sit moderate assist of 2 Bed to reclining chair moderate assist of 2 Reclining chair to bed moderate assist of 2 Gait: Facilitated safe and correct performance of short distance level surface ambulation of 5 small steps using hemiwalker on L with moderate assist of PT and of MOTOR TEACHER Elizabeth. Patient so weak that he is unable to move hemiwalker and only able to advance limb minimally. Shaky and unstable. Fast descent onto chair due to weakness and fatigue. Increased trunk lean to L. Balance: Static Sitting: Fair Dynamic Sitting: Poor Static Standing: Poor Dynamic Standing: Unable Special Tests: Mobility Limitations Standardized Measure [facility] AM-PAC 6 clicks Basic Mobility Inpatient Short Form: Raw Score: 12 CMS Score: 69% deficit 4-Stage Balance test: Deferred Romberg Test: Deferred Informed Consent/Education: Patient was instructed in purpose of PT consult and plan of care. Agreeable to proceed with established PT POC to achieve personal goals. ASSESSMENT: Trunk lean to L apparent and limiting safety of short distance ambulation. L sided weakness superimposed on generalized weakness along with new balance impairment compounding pre-existing balance compromise further increase for falls and inabity to perform safe mobility ADL at home. patient will require SNF placement in order to regain safe level of mobility to allow for improved ability to thrive at home. Patient presents with clinical signs and symptoms consistent with current/admitting diagnoses that have resulted to mobility limitations, gait instability, generalized weakness, and overall ADL decline as demonstrated by the following impairment level findings: 1. Decreased strength to B UE/LE major muscle groups, L side more affected than R due to new CVA 2. Impaired sitting/standing balance 3. Impaired activity tolerance 4. Limitation of joint range of motion in R shoulder 5. Shortness of breath 6. Mild swelling in B legs Impairments are contributing to the following functional limitations: 1. Decline in bed mobility skills 2. Decline in transfer skills 3. Difficulty with ambulation without assistive device and physical assistance 4. Increased completion time for mobility ADL performance 5. Increased risk for falls 6. Difficulty with managing steps alone safely Patient is [place] 51275 high complexity based on the following: History: 77-year-old male with past medical history as indicated above Examination: Demonstrable impairment in strength, balance, and mobility level with underlying impairments and functional limitations as exhibited above as well as deficit score of 69% utilizing the [facility] Mobility Inpatient Short Form Presentation: Evolving Decision Makin moderate complexity Goals: Goals X1 week 1. Supine-Sit minimal assist 2. Sit-Supine minimal assist 3. Sit-Stand minimal assist 4. Stand-Sit minimal assist with hemiwalker 5. Bed-Chair minimal assist with hemiwalker 6. Chair-Bed minimal assist with hemiwalker 7. Minimal assist with gait on level surface with use of hemiwalker for at least 30 feet without report of pain nor dyspnea 8. Fair static and dynamic standing balance/tolerance Plan of Care/Treatment Plan: 1-2x/day, 7 days/week x 1 week. Plan of care has been reviewed with the PSYCHIATRIC REGISTERED NURSE providing the service under Physical Therapy direction. Initiate Physical Therapy intervention for pain management as needed, strengthening, bed mobility, transfers, gait, stairs, balance training, and use of assistive device. DISCHARGE RECOMMENDATIONS: [] Home with no services [] [] Home with services [specify] [] Home with outpatient PT [] [X] SNF for continued rehabilitation. Patient will benefit from nursing home facility placement for continued skilled physical therapy services in order to progress mobility level, strength, and balance in preparation for a safe discharge to home. [] Cap Inspector Care [] [] SNF versus LTC based on ability to participate and progress [] TREATMENT CODE/TIME: 27004 x 30 minutes for 1 unit, 57091 x 18 minutes for 1 unit beginning at 11:04 AM. Thank you for the opportunity to participate in the care of this patient. Brittnee Thornton PT, DPT, CLT [facility] [place], [place]
--- NOTE | 2023-07-25 11:30 | DI.RAD_ITS ---
Exam(s) XR PORTABLE CHEST AP EXAM: XR PORTABLE CHEST AP CLINICAL HISTORY: cough, dyspnea, CVA; r/o pneumonia TECHNIQUE: 2D digital imaging was performed. COMPARISON: CR XR CHEST 2V PA LATERAL from 07/16/[address] CHEST W from 07/23/2023 FINDINGS: Exam limited by patient position and multiple leads coiled over the chest. LUNGS: Small bilateral pleural effusions. Underlying interstitial changes. HEART: Normal size. AORTA: Normal diameter. BONES: Unremarkable for age. Soft tissues: Unremarkable. IMPRESSION: Limited exam. Small bilateral pleural effusions. DATA REPOSITORY: RADIATION DOSE DELIVERED:
--- NOTE | 2023-07-25 11:33 | PGE_ITS ---
Date of Service Date of service: 07/25/23 Time of Service: 11:34 Assessment and Plan Assessment and plan (1) Acute CVA (cerebrovascular accident): Start date: 07/23/23 Status: Acute Assessment and plan: R. Pontine CVA of indeterminate age seen on CT. Will get MRI of brain on Wednesday along w/ echocardiogram w/ bubble study, continue aspirin suppository, obtain neurology consult on Wednesday along w/ TEACHING SUPERVISOR and PT and OT consults. When able to safely swallow meds then will begin atorvastatin. Patient will likely need SNF at least short term for rehab from CVA as well as shoulder injury Continue aspirin rectal suppository. Continue PT and OT evaluation will obtain TEACHING SUPERVISOR evaluation in the morning along with neurology consultation. Professional time spent interviewing and examining patient, discussion of goals of care with hospital team (care management, nursing and consulting professionals) was 30 minutes. (2) Hill-Sachs fracture of right humerus: Status: Acute Assessment and plan: Continue immobilization with sling and swath status post reduction of anterior dislocation. Will arrange orthopedic follow-up in the morning. Qualifiers: Encounter type: initial encounter Fracture type: closed Qualified Code(s): S42.291A - Other displaced fracture of upper end of right humerus, initial encounter for closed fracture (3) Frequent falls: Status: Chronic (4) Hypoxic respiratory failure: Start date: 07/23/23 Status: Acute Assessment and plan: No infiltrates on CXR, although he has COPD but has not been on home oxygen. Encourage cough and deep breathing, incentive spirometer. Will place on Spiriva and prn DuoNeb. Although he had no infiltrates on initial imaging I suspect that he probably has a pneumonia at this point. We will check repeat chest x-ray broaden his antibiotic coverage with cefepime from the Rocephin he was started on yesterday. Qualifiers: Chronicity: acute on chronic Qualified Code(s): J96.21 - Acute and chronic respiratory failure with hypoxia (5) Acute urinary retention: Start date: 07/23/23 Status: Acute Assessment and plan: remote hx of prostate cancer surgically treated at [facility] per patient, done years ago. No problem until recently. Red has been placed. In light of his hematuria and leukocytosis, (6) Hepatic cirrhosis: Status: Chronic Assessment and plan: transaminases essentially normal although his protime is mildly eleveted (11.2, INR 1.1) and low albumin and total protein. I will request nutrition consult, have TEACHING SUPERVISOR see him about his swallowing. Patient intolerant of even dysphagia diet. Await TEACHING SUPERVISOR consult Qualifiers: Ascites presence: without ascites Hepatic cirrhosis type: alcoholic cirrhosis Qualified Code(s): K70.30 - Alcoholic cirrhosis of liver without ascites (7) Alcohol use disorder: Status: Chronic Assessment and plan: will check B12, folate levels and treat empirically. No hx of acute withdrawal. will monitor w/ CIWA scoring but otherwise not treat w/ benzodiazepines or methadone routinely. (8) DVT prophylaxis: Status: Acute Assessment and plan: enoxaparin 40 mg SC daily added Subjective Subjective Interval history since last seen: Severino is more congested this morning coughing up some thick mucus is clear to white. He is having trouble controlling his secretions unable to tolerate a diet. We have made him n.p.o. I have added atropine drops to help dry up some of his secretions. His lungs sound more congested we will check a chest x-ray but I suspect e' as an aspiration pneumonia going on. Patient states his right shoulder pain is much improved since he underwent shoulder reduction for an anterior dislocation. Exam Narrative Exam Narrative: Severino is sitting up in bed coughing some thick secretions we applied a Yankauer suction to help clear some of the secretions from his throat. Nursing and PT are in to work with him this morning. Right shoulder and arm are in a sling and swath. Lungs congested particular on the right side with some rhonchi Heart is regular distant heart tones Abdomen is scaphoid soft and nontender Right side with some paresis of his right hand and arm which I did not do full range of motion since the did have a subluxed shoulder which is now been reduced. Objective Last Vital Signs Temp 36.2 C L 07/25/23 10:57 Pulse 66 07/25/23 10:57 Resp 18 07/25/23 10:57 BP 102/65 07/25/23 10:57 Pulse Ox 92 07/25/23 10:57 Laboratory Results - last 24 hr 07/25/23 06:10 Triglycerides 63 Total Cholesterol 96 LDL Cholesterol, Calc 48 HDL Cholesterol 36 L Time Spent with Patient Time Spent with Patient: 25-34 minutes Time was spent: preparing to see the patient(eg.review tests), ordering medications,tests, procedures, referring, communicating with other health youth care professional, indepentently interpreting results, counseling the patient and care coordination
[2023-07-25] MEDS: CEFEPIME 2 GM in Normal Saline 100 ML IVPB (12:07)
[2023-07-25] MEDS: Enoxaparin 40 MG/0.4 ML SYR SC (12:07)
[2023-07-25 12:10] LABS: BE (Venous) -1 mmol/L (-2-3); HCO3 (Venous) 24 mmol/L (23-28); O2 Sat (Venous) 71 %; TCO2 (Venous) 23 mmol/L (24-29); pCO2 (Venous) 45 mmHg (41-51); pH (Venous) 7.35 (7.31-7.41); pO2 (Venous) 39 mmHg
[2023-07-25 12:14] LABS: Lab Add On Test DONE
--- NOTE | 2023-07-25 12:22 | DI.VRAD_ITS ---
PROCEDURE INFORMATION: Exam: XR Chest Exam date and time: 07/25/2023 11:58 AM Age: 77 years old Clinical indication: Pain; Other: Cough, dyspnea, CVA; R/O pneumonia TECHNIQUE: Imaging protocol: Radiologic exam of the chest. Views: 1 view. COMPARISON: CT CHEST W 07/23/2023 3:43 PM FINDINGS: Lungs: Opacities in both bases may represent atelectasis or pneumonia.. Hyperexpanded lung saunders consistent with COPD Pleural spaces: There may be mild left pleural effusion. Heart/Mediastinum: Unremarkable. No cardiomegaly. Bones/joints: Unremarkable. IMPRESSION: 1. Opacities in both bases may represent atelectasis or pneumonia.. 2. There may be mild left pleural effusion. Dictated and Authenticated by: Jonatan Rayo MD. Ordering:[facility] Viki Shetty MD
[2023-07-25 12:37] LABS: HCT 35.3 % (40.0-50.0); HGB 10.8 g/dL (13.5-17.5); MCHC 30.6 % (32.0-36.0); MCV 95 fL (80-95); Platelet Count 256 10^3/uL (130-400); RBC 3.72 10^6/uL (4.36-5.78); RDW 17.7 % (11.8-14.1); RDW-SD 58.4 fL; WBC 8.43 10^3/uL (4.4-10.8)
[2023-07-25 12:43] LABS: Anion Gap 11.5 mmol/L (3-11); BUN 27 mg/dL (7-18); CO2 24.5 mmol/L (21.0-32.0); CREATININE 0.8 mg/dL (0.70-1.30); Calcium 8.3 mg/dL (8.5-10.1); Chloride 108 mmol/L (98-107); Estimated GFR 91.15 (mL/min/1.73m2); Glucose 79 mg/dL (74-106); Potassium 4.2 mmol/L (3.5-5.1); Sodium 144 mmol/L (136-145)
[2023-07-25 13:10] LABS: Procalcitonin 0.2 ng/mL
[2023-07-25] MEDS: Albuterol/Ipratropium 3 ML UPD VIAL UPD ×2 (19:43→23:54)
[2023-07-26] VITALS (16 sets, daily range): BP systolic 112–146; BP diastolic 62–85; PULSE 53–119; RESP 2–22; TEMP 36.1–37.4; O2SAT 89–98
[2023-07-26] MEDS: CEFEPIME 2 GM in Normal Saline 100 ML IVPB ×2 (00:15→13:02)
[2023-07-26] MEDS: ACETAMINOPHEN 1,000 MG/100 ML BTL 400 MG IVPB ×3 (01:14→16:26)
[2023-07-26] MEDS: Lactated Ringers 1,000 ML 75 ML IV ×2 (01:39→20:53)
[2023-07-26] MEDS: Albuterol/Ipratropium 3 ML UPD VIAL UPD ×4 (05:55→23:40)
[2023-07-26] MEDS: Budesonide/Formoterol 160/4.5 6 GM 60 PUFF INH IH ×2 (07:48→19:34)
[2023-07-26] MEDS: Tiotropium Bromide-Respimat 10 PUFF INH 2 PUFF IH (07:48)
[2023-07-26] MEDS: Normal Saline Flush 10 ML SYR IVP (07:54)
[2023-07-26] MEDS: Pantoprazole 40 MG VIAL IVP (07:54)
[2023-07-26] MEDS: Aspirin 300 MG SUPP PR (07:54)
--- NOTE | 2023-07-26 08:00 | DI.US_ITS ---
APPROVED REPORT EXAM: Comprehensive 2D, Doppler, and color-flow Echocardiogram Patient Location: In-Patient Room/Bed: [facility] Timber Cruiser: Tim Marte RDCS (AE) Indications: Acute right CVA, Limited follow up exam done Echo Enhancing Agent Indication: Rule out Shunt Agent(s) / Amount(s) Used: Agitated Saline 30.0 cc Comments: Contrast study was performed with 3 IV injections of 10ccs of agitated normal saline, at re st, with cough and post valsalva maneuver. Negative contrast study for shunt flow. Other Information Study Quality: Fair. Technically limited study due to body habitus, inability to position patient exa m done supine on stretcher. Conclusion Normal left ventricular wall thickness and chamber size. Ejection fraction is 60%. Wall motion is n ormal Normal right ventricular size and systolic function Both atria are normal in size There is no evidence of intracardiac shunting on injection of agitated saline Wall motion Left Ventricle The left ventricle is normal size. The left ventricular systolic function is normal. The left ventric ular ejection fraction is within the normal range. There is normal left ventricular wall thickness. L VEF is 60%. Right Ventricle The right ventricle is normal size. Atria The left atrium size is normal. The right atrium size is normal. Saline bubble contrast intravenous i njection does not demonstrate PFO. Great Vessels IVC is normal in size and collapses >50% with inspiration. Pericardium There is no pericardial effusion. 2D Dimensions IVSD d PLAX 0.79 cm M: 0.6-1.2 LVPW d PLAX 0.80 cm M: 0.6 - 1.2 LVID d PLAX 4.07 cm M: 4.2 - 5.8 LVDs 2.82 cm M: 2.5 - 4.0 LV EF Teichholz 58.8 % FS 30.73 % LV EDV (Teich) 72.9 mL LV ESV (Teich) 30.0 mL
--- NOTE | 2023-07-26 08:00 | DI.MRI_ITS ---
Exam(s) MR BRAIN WO EXAM: MR BRAIN WO CLINICAL HISTORY: Acute right doug CVA TECHNIQUE: Multiplanar multisequence MRI of the brain was performed. COMPARISON: MR MR ANGIO BRAIN WO from 05/20/[address] BRAIN NECK CTA from 07/23/2023 FINDINGS: Exam mildly limited by motion. VENTRICLES AND EXTRA AXIAL SPACES: Normal in size and morphology for the patient's age. MIDLINE SHIFT: None. CEREBRAL PARENCHYMA: No focus of restricted diffusion to suggest acute infarct. No space-occupying le chapincito identified. atrophy . Mild scattered foci of high signal in the white matter consistent with s equela of chronic microvascular disease. HEMORRHAGE: None. BRAINSTEM/CEREBELLUM: Normal. No evidence of pontine infarct. VISUALIZED PARANASAL SINUSES/MASTOIDS:Clear. Vasculature: Normal flow void. PITUITARY GLAND: Unremarkable. ORBITS: Unremarkable. IMPRESSION: No acute abnormality.. DATA REPOSITORY:
--- NOTE | 2023-07-26 08:21 | W.NEUROCONSU ---
Date of service: 07/26/23 Time of Service: 08:53 Assessment and Plan Assessment and plan (1) Frequent falls: Status: Chronic (2) Palliative care patient: Status: Acute (3) Weakness: Status: Acute (4) Dysphagia: Status: Chronic Assessment and plan: Mr. Cr presents with acute on chronic generalized weakness and dysphagia, with conflicting CT head findings, but concern for possible stroke as part of his decline. Work-up: -MRI brain w/o to asses for acute stroke -TTE with bubble study -Telemetry Medications: -MN aspirin daily for secondary stroke prevention until he can take PO Other: -Physical therapy for leg weakness, gait training -Occupation therapy for upper extremity weakness, activities of daily living -Speech therapy for speech and swallow -Palliative care for planning Qualifiers: Dysphagia type: unspecified Qualified Code(s): R13.10 - Dysphagia, unspecified History of Present Illness History of Present Illness Chief Complaint: weakness, ?Stroke Narrative: Handedness: right. HPI: Mr. Cr is a 77 year-old with hypertension, hyperlipidemia, COPD, ETOH abuse, GERD, Barrets, chronic dysphagia, BPH, prior prostate cancer, and osteoporosis. He is followed very closely by outpatient palliative care for his dysphagia, FTT, malnutrition, and has been considered for hospice. Mr. Cr was admitted on 07/23/23 after presenting to the ER with ongoing generalized weakness s/p fall and R humerus fracture on 07/16/23, found to have hypoxia, presumed aspiration pneumonia, and urinary retention. A CT head was performed as below and concerning for pontine stroke for which he is awaiting further work-up. He is currently NPO becuase of ?acute on chronic dysphagia. He doesn't feel like his dysphagia is any worse than it was a few weeks ago. He is on MN ASA. Work-up: -CTH (07/23/23): large R pontine hypodensity concerning for subacute stroke. Chronic vascular changes notes. I reviewed these images personally and this is my personal interpretation. -CTA head/neck (07/23/23): I know that the R pointine hypodensity is no longer present and thus was likely artifact. No acute/subacute findings. Plaque bilateral L>R ICAs, without significant stenosis. I reviewed these images personally and this is my personal interpretation. -A1c 5.5 -LDL 48 -B12 >2000 -Folate 5.9 -TSH 2.8 Review of Systems All systems reviewed & are unremarkable except as noted in HPI and below PFSH All Active Problems (Updated 07/26/23 @ 08:59 by Mackenzie Stewart MD) Weakness (Acute) DVT prophylaxis (Acute) Hill-Sachs fracture of right humerus (Acute) Hypoxic respiratory failure (Acute) Injury of shoulder, right (Acute) Acute urinary retention (Acute) Hypoxia (Acute) Acute CVA (cerebrovascular accident) (Acute) Encounter for hospice care (Acute) Muscular deconditioning (Acute) Acute pain of right shoulder (Acute) Need for home health care (Acute) Frequent falls (Chronic) Palliative care patient (Acute) Advance care planning (Acute) Unexplained weight loss (Acute) Osteoporosis (Chronic) Protein calorie malnutrition (Acute) Venous stasis (Acute) Onychomycosis (Acute) At risk for falls (Acute) Inflamed seborrheic keratosis (Acute) Right wrist tendonitis (Acute) Hiatal hernia (Chronic) Noted on 01/17/2021 CT Lung nodules (Acute) Portal hypertension (Acute) Anemia (Chronic) Frailty syndrome in geriatric patient (Chronic) Dysphagia (Chronic) 10/17/2018 [place] [place] Smalls's & interval resolution of esophageal varices seen on previous EGD (see Smalls's dx comments for details); 06/06/2019 Barium Swallow: some dysmotility & aspiration --> referred to Speech Therapy 04/12/20 [facility] [place]ophageal Manometry; 05/17/2020 EGD: Grade I esophageal varices, duodenal erosions w/o bleeding, no obstructive cause for dysphagia Smalls's esophagus (Chronic) 10/17/2018 EGD ([facility] [place] esophageal mucosal changes classified as Smalls's stage C0-M1 per Moore criteria (also showed resolution of esophageal varices on carvedilol 6.25 mg BID) Tobacco use disorder (Chronic) 1.5- 2 PPD not interested in quitting 08/2020 Restless leg syndrome (Chronic) Alcohol use disorder (Chronic) not interested in quitting 08/2020 approx 48-60 oz of beer + hard liquor daily Sigmoid diverticulosis (Chronic 02/01/18) 02/01/2018 colonoscopy Incisional hernia, without obstruction or gangrene (Chronic 01/17/18) [facility] [place] Hypertension (Chronic 08/01/14) Hyperlipidemia (Chronic 03/24/13) 11/2018 labs: good response to high potency statin, continue Hepatic cirrhosis (Chronic 01/14/18) [facility] [place] 02/24/2018 Fibroscan: stage 4 liver fibrosis, consistent with cirrhosis with possible portal HTN 06/22/2018 EGD (Dr. Hoang): confirmed portal HTN with grade 1 esophageal varices Sodium restriction 2000 mg for ascites control Gastroesophageal reflux disease (Chronic 03/15/13) surgery 08/1990 Chronic obstructive lung disease (Chronic 03/15/13) 09/06/2020 PFTs ([facility] [place] moderate-severe (FEV1 50-59%) Bilateral lower extremity edema (Chronic 01/14/18) Related to cirrhosis BPH w urinary obs/LUTS (Chronic 03/10/13) Rectosphincteric dyssynergia (Chronic) Manifested as fecal incontinence and constipation; resolved with daily fiber supplementation Medical History Femur fracture, left (~02/2021) Other bursitis of elbow, right elbow (01/02/21) Aspiration pneumonia due to regurgitated food Closed fracture of left orbit Fracture of nasal bone Periprosthetic fracture around internal prosthetic left hip joint C3 cervical fracture Intertrochanteric fracture of left femur Family history of malignant melanoma ov note dated 05/10/20-Dr. Hale Squamous cell carcinoma Face Basal cell carcinoma (BCC) Face Hydrocele of testis (03/24/13) S/p repair L; then occurred on R side and now chronic Rotator cuff syndrome (03/24/13) S/p B/L repair Esophageal varices 06/22/2017 EGD (Dr. 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 Hale Derm Surgical History S/P skin biopsy (~09/2020) R inguinal fold on margins of scrotum-Dr Hale H/O endoscopy 05/17/20 [facility] [place]/O colonoscopy 05/17/20 at [facility] [place] no need for further to have any further colonscopy per report History of esophagogastroduodenoscopy (EGD) (06/22/18) dr hoang, grade I esophageal varices right shoulder (03/24/00) Repair of incision from Marci fundoplication (03/24/87) Prostatectomy (~05/2007) Marci Fundoplication (03/24/85) Left shoulder (09/24/07) Family History Mother , resp failure due to COPD age 69 COPD (chronic obstructive pulmonary disease) Smoker Father , widespread cancer age 73 Personal history of malignant neoplasm prostate Malignant melanoma Smoker Prostate cancer COPD (chronic obstructive pulmonary disease) Son No problems noted. Daughter No problems noted. Brother , age 68 from COPD COPD (chronic obstructive pulmonary disease) Smoker Sister , age 62 from pancreatic cancer Smoker Pancreatic cancer Social History Smoking/Tobacco Use Status: Current every day Tobacco Type: cigarettes Tobacco: How many years used: 60 Quit status: has quit before Second Hand Exposure: No Counseling given: counseling >3 minutes Smoking risk assessment performed?: Yes Alcohol Intake: current Alcohol Intake frequency: 3 or more drinks per day Alcohol type: beer and hard liquor Counseling provided: other Drug use: Never Substance use type: does not use Counseling provided: provider counseling Caregiver/Support person: No Household members: none Housing: house Number of Children: 2 number of grandchildren: 3 Communication Needs: Corrective Lenses Education Level: high school Do you need help understanding health information?: Often 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; 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 Do you think of yourself as: straight/heterosexual Current gender identity: male What is your relationship status?: How often do you talk on the phone with friends or family?: once per week How often do you get together with friends or relatives?: once per week Panel score (0-1 are the most socially isolated patients): 0 What type of physical activity do you participate in: none Special tg needs: No Agree to transfusion: No Seatbelt use: always Water heater temp set <120 deg: Yes Working smoke detector in home: Yes Fire extinguisher in home: Yes Carbon monox detector in home: Yes Firearms in home: No Do you feel safe at home: Yes Do you feel safe in your relationship?: Yes Additional Social history: lives at home alone MIROSLAVARN 07/23/23 Visit Medication and Allergies Active Medications Generic Name Dose Route Start Last Admin Trade Name Freq PRN Reason Stop Dose Admin Acetaminophen 0 mg 07/24/23 04:58 Acetaminophen 325 Mg Tab PO Q4H PRN PRN Al Hydrox/Mg Hydrox/Simethicone 30 ml 07/24/23 04:58 Mylanta Suspension 30 Ml Cup PO Q2H PRN PRN Albuterol Sulfate 2.5 mg 07/24/23 04:58 Albuterol 2.5 Mg/3 Ml Inh Soln Vial UPD Q2H PRN PRN Albuterol/Ipratropium 3 ml 07/25/23 12:00 07/26/23 05:55 Albuterol/Ipratropium 3 Ml Upd Vial UPD 3 ml Q6H SALLY Administration Aspirin 300 mg 07/24/23 10:10 07/26/23 07:54 Aspirin 300 Mg Supp MN 300 mg DAILY SALLY Administration Atorvastatin Calcium 40 mg 07/24/23 08:30 07/25/23 10:01 Atorvastatin 40 Mg Tab PO Not Given DAILY SALLY Atropine Sulfate 5 ml 07/25/23 11:10 07/25/23 12:07 Atropine 1% Ophth Janice. 5 Ml Btl SL 3 drp Q30MIN PRN Administration excessive secretions Budesonide/Formoterol Fumarate 2 puff 07/24/23 08:30 07/26/23 07:48 Budesonide/Formoterol 160/4.5 6 Gm 60 Puff Inh IH 2 puffs BID SALLY Administration Device 1 each 07/24/23 06:00 Inhaler, Assist Device DIRECTED SALLY Docusate Sodium 100 mg 07/24/23 04:58 Docusate Sodium 100 Mg Cap PO TID PRN PRN Enoxaparin Sodium 40 mg 07/25/23 12:00 07/25/23 12:07 Enoxaparin 40 Mg/0.4 Ml Syr SC 40 mg Q24H SALLY Administration Ringer's Solution 1,000 mls @ 75 mls/hr 07/23/23 22:00 07/26/23 01:39 IV 75 mls/hr INFUSION SALLY Administration Acetaminophen 1,000 mg in 100 mls @ 400 mls/hr 07/24/23 09:00 07/26/23 01:14 Ofirmev IVPB 400 mls/hr Q8H SALLY Administration Cefepime HCl 2 gm/ Sodium 100 mls @ 200 mls/hr 07/25/23 12:00 07/26/23 01:39 Chloride IVPB Infused Q12H SALLY Infusion IV Miscellaneous Supplies 1 each 07/24/23 05:00 Iv Access IV DIRECTED SALLY Ketorolac Tromethamine 15 mg 07/24/23 08:48 Ketorolac 15 Mg/Ml Vial IVP 07/29/23 08:47 Q6H PRN PRN Magnesium Hydroxide 30 ml 07/24/23 04:58 Milk Of Magnesia 30 Ml Cup PO DAILY PRN PRN Morphine Sulfate 1 - 2 mg 07/24/23 08:48 Morphine 2 Mg/Ml Syr IVP Q1H PRN PRN Pantoprazole Sodium 40 mg 07/24/23 08:30 07/26/23 07:54 Pantoprazole 40 Mg Vial IVP 40 mg DAILY SALLY Administration Polyethylene Glycol 17 gm 07/24/23 04:58 Polyethylene Glycol 3350 17 Gm Packet PO DAILY PRN PRN Constipation Sodium Chloride 0 ml 07/23/23 20:00 07/26/23 07:54 Normal Saline Flush 10 Ml Syr IVP 30 ml BID SALLY Administration Sodium Chloride 0 ml 07/24/23 20:00 07/25/23 22:36 Normal Saline Flush 10 Ml Syr IVP Not Given BID SALLY Sodium Chloride 0 ml 07/24/23 19:12 Normal Saline Flush 10 Ml Syr IVP PRN PRN Spironolactone 100 mg 07/24/23 08:30 07/25/23 10:01 Spironolactone 50 Mg Tab PO Not Given DAILY SALLY Thiamine HCl 100 mg 07/24/23 08:30 07/25/23 10:01 Thiamine 100 Mg Tab PO Not Given DAILY SALLY Tiotropium [place] 2 puff 07/24/23 10:10 07/26/23 07:48 Tiotropium [place]-Respimat 10 Puff Inh IH 2 puffs DAILY SALLY Administration Allergies No Known Allergies Allergy (Verified 07/20/23 08:48) Exam Narrative Exam Narrative: Physical Exam: Gen: thin, cachectic, chronically ill looking, covered in numerous open wounds on LE Head and face: no facial or cranial abnormalities Neck: Supple, no meningismus, no occipital tenderness CV: + S1, S2, RRR Resp: CTA B/L Abd: soft, nontender, nondistended Ext: No edema. No clubbing or cyanosis. No bony deformity. Neuro Exam: Language: fluency, naming, repetition, and comprehension intact; Mental Status: AAOx3, current events and fund of knowledge generally intact; Speech: moderate dysarthria Cranial nerves: Funduscopy: not performed CN II: visual saunders intact CN III, IV, : extraocular movements intact, no nystagmus, pupils symmetric and reactive to light CN V: face sensation intact to LT and PP CN VII: no facial asymmetry noted CN VIII: hearing intact bilaterally CN IX, X: palate rises symmetrically CN XI: trapezius/SCM 5/5 bilaterally CN XII: protrudes tongue to the left with intact movements Sensory: reduced PP in RUE only; intact all else; LT intact in all extremities Motor: bulk and tone intact. Fine motor movements tested on L only and reduced. RUE not tested due to humerus fracture. Strength 4-/5 in the LUE. 2/5 proximal bilateral LE, 4-/5 distally. Reflexes: 2+ at the biceps, triceps, brachioradialis, patella; reduced at the achilles tendons bilaterally; toes down going on R and neutral on L Coordination: FTN and HTS intact bilaterally Gait: not tested Results Last Vital Signs Temp 97.5 F L 07/26/23 07:16 Pulse 80 07/26/23 07:16 Resp 18 07/26/23 07:16 BP 119/68 07/26/23 07:16 Pulse Ox 93 07/26/23 07:16 Labs 07/25/23 06:10 07/25/23 12:08 Labs: Laboratory Results - last 24 hr 07/25/23 07/25/23 07/25/23 06:10 12:02 12:08 WBC 8.43 RBC 3.72 L Hgb 10.8 L Hct 35.3 L MCV 95 D MCH 29.0 MCHC 30.6 L RDW 17.7 H Plt Count 256 MPV 10.0 VBG pH 7.35 VBG pCO2 45 VBG pO2 39 VBG HCO3 24 VBG Total CO2 23 L VBG O2 Saturation 71 VBG Base Excess -1 Sodium 144 Potassium 4.2 Chloride 108 H Carbon Dioxide 24.5 Anion Gap 11.5 H BUN 27 H Creatinine 0.8 Est GFR (CKD-EPI 2020) 91.15 Glucose 79 Calcium 8.3 L Procalcitonin 0.2 Add-On Test Request DONE
--- NOTE | 2023-07-26 09:29 | CMPROGNOTE_ITS ---
Date of service: 07/26/23 Time of Service: 09:29 Care Management Progress Note Progress Note Text Progress Note Text: S/O: Severino was sitting up in his chair when CM met with him. He had multiple tests today, including an MRI and an echo. He stated that he worked with PT to get from the bed to the chair today, but his mobility is limited. CM discussed SNF for discharge, as recommended by PT. He stated that he would like to go to [facility], as he has been there multiple times, and is very comfortable there. CM explained that [facility] is currently closed to admissions, but that we may be able to get him to a [facility] facility, such as [facility], with the intention to have him return to [facility] once a bed is available, and he was agreeable to this plan. He was also agreeable to a referral being sent to the [facility]. CM sent referrals, as requested. CM will continue to follow. A: Severino is a 77 year old male admitted to [facility] on 07/23/23 for R CVA, shoulder pain, urinary retention, respiratory failure. P: Anticipate Severino will go to SNF for continued rehab post discharge, as recommended by PT. His transportation will be dependent on disposition and mobility at the time of discharge. He will follow up with his PCP and discharge plan of care. CM will continue to follow.
--- NOTE | 2023-07-26 10:00 | RT.EKG_ITS ---
APPROVED REPORT Exam: Resting ECG Reason for Exam: atrial fibrillation Patient Location: I HR:67 bpm ECG Measurements Heart Rate 67 AXIS LA [id number] P [id number] QRSd 130 QRS 82 QT 419 T 71 QTc 443 Conclusion Atrial fibrillation...? atrial activity Right bundle branch block...QRSd>120, terminal axis(90,270)
--- NOTE | 2023-07-26 11:48 | PT.INTREAT ---
Date of service: 07/26/23 Time of Service: 11:20 PT Notes Visit Reasons: Right CVA, Shoulder pain, UR, Respiratory Failure Inpatient Physical Therapy Treatment Note [facility] Date: 07/26/23 PRECAUTIONS: Fall, standard, activity as tolerated. NWB on the R UE until cleared by orthopedic surgeon/hospitalist. Sling on when OOB. Remains NPO at this time. SUBJECTIVE: Patient reports feeling hungry, thirsty. States that LOCOMOTIVE ENGINEER came this morning and fed him half a container of yogurt, and he would really like to have the rest of it now. Becomes agitated when he discovers that container was not left in the room. AFTERNOON: Patient reports that he will be able to eat dinner, appears well pleased. OBJECTIVE: Supine in bed. Red catheter bag located on bed between legs. Agreeable to therapy, however states you won't be getting me up by yourself unless you are really very sturdy. AFTERNOON: Patient's friend Alexander (?) is present. Patient is sitting up in bed, attempting to drink an Ensure beverage. RN Etta reports that Ensure is mildly thick and then ? PAIN: none reported. VITALS: monitored by nursing staff. Therapeutic Activities ([id number]): Direct one-on-one instruction in dynamic activities to improve functional performance. ? BED MOBILITY/TRANSFERS? Rolling L/R: min assist with additional time and verbal cues. Supine-sit: min assist with extra time to maneuver legs over side of bed. Min to mod assist via handhold on patient's Left and therapist other hand behind patients back / shoulders for support. Patient had to be reminded x4 not to use RUE. ? Sit-supine: min assist to maneuver trailing (right) leg back over EOB. Min assist to line shoulders up over hips. Max assist to scoot patient up in bed. ?Sit-stand: not assessed - patient refused d/t fear of falling without a second healthcare professional present. ?AFTERNOON: Min assist at gait belt to stand. Bed to chair: Max assist of one at gait belt with verbal and tactile cues for safe and correct task performance. ? Provided skilled cues and instruction on performance and technique throughout. ASSESSMENT:? Patient tolerates therapy well. PLAN: Continue global strengthening per plan of care TREATMENT CODE/TIME: 26 minutes beginning at 11:20 and 36 minutes beginning at 15:10 for a total of 62 minutes today.
--- NOTE | 2023-07-26 12:28 | DI.RAD_ITS ---
Exam(s) RF MODIFIED SPEECH BA SWALLOW TECHNIQUE: Modified barium swallow was performed in conjunction with speech pathology. CONTRAST MATERIAL: Multiple consistencies of oral barium contrast were administered. COMPARISON: No exams were available for comparison FINDINGS: Note that this is not a dedicated esophagram, distal esophagus not evaluated. Fluoro time 1 minutes 44 seconds. Speech pathology report to follow. RADIATION DOSE DELIVERED: veronica Siegel=5.49 mGy
[2023-07-26] MEDS: Barium Sulfate 40% W/V 1500 CPS 250 ML BTL PO (12:46)
[2023-07-26] MEDS: Barium Sulfate 40% W/V 240 ML BTL PO (12:48)
[2023-07-26] MEDS: Barium Sulfate 81% w/w for Oral Suspension 148 GM BTL PO (12:49)
[2023-07-26] MEDS: Barium Sulfate Oral Paste 40% W/V 230 ML TUBE PO (12:50)
--- NOTE | 2023-07-26 12:53 | W.PM.PROGNOT ---
Date of Service Date of service: 07/26/23 Time of Service: 12:53 Assessment and Plan Assessment and plan (1) Acute CVA (cerebrovascular accident): Start date: 07/23/23 Status: Suspected Assessment and plan: Patient was suspected of having a CVA and was reported as having a pontine CVA, w/ CTA of head and neck not showing any acute hemodynamic obstruction. However, his MRI did not support a diagnosis of CVA. He has dysphagia of unknown etiology but apparently his weakness is generalized weakness from his poor nutritional status. I would continue aspirin therapy and statin as he now may in fact have afib by telemetry although I am not convinced his EKG supports this although the shearing shed worker has agreed w/ the computer interpretation of afib but also said questionable atrial activity. SUSTAINABLE AGRICULTURE SPECIALIST has done MBSS to evaluate his dysphagia and will make recommendations for diet. (2) Hill-Sachs fracture of right humerus: Status: Acute Assessment and plan: Continue immobilization with sling and swath status post reduction of anterior dislocation. Dr. Amaya spoke w/ me this morning and indicated that as long as Severino does not abduct or circumduct the arm i.e. keeps the humerus close by his side he can go without the sling and swath. Due to weeping from his skin tears, the sling and swath became soaked and was taken off this morning. Qualifiers: Encounter type: initial encounter Fracture type: closed Qualified Code(s): S42.291A - Other displaced fracture of upper end of right humerus, initial encounter for closed fracture (3) Frequent falls: Status: Chronic Assessment and plan: continue to work w/ P.T. (4) Hypoxic respiratory failure: Start date: 07/23/23 Status: Acute Assessment and plan: No infiltrates on CXR, although he has COPD but has not been on home oxygen. Encourage cough and deep breathing, incentive spirometer. Will place on Spiriva and prn DuoNeb. Although he had no infiltrates on initial imaging I suspect that he probably has a pneumonia at this point. We will check repeat chest x-ray broaden his antibiotic coverage with cefepime from the Rocephin he was started on yesterday. Repeat CXR yesterday demonstrated bilateral pleural effusions, no infiltrates. I think his hypoxic respiratory failure has been d/t his COPD, poor respiratory clearance, and bronchitis. Will treat w/ 5 day course of antibiotics for bronchitis. Can change to po antibiotics either Cefdinir or Augmentin. Qualifiers: Chronicity: acute on chronic Qualified Code(s): J96.21 - Acute and chronic respiratory failure with hypoxia (5) Acute urinary retention: Start date: 07/23/23 Status: Acute Assessment and plan: remote hx of prostate cancer surgically treated at [facility] per patient, done years ago. No problem until recently. Red has been placed. In light of his hematuria and leukocytosis, he was begun on Ceftriaxone empirically for possible UTI but then upgraded to Cefepime out of concern for aspiration pneumonia. (6) Hepatic cirrhosis: Status: Chronic Assessment and plan: transaminases essentially normal although his protime is mildly eleveted (11.2, INR 1.1) and low albumin and total protein. I will request nutrition consult, have SUSTAINABLE AGRICULTURE SPECIALIST see him about his swallowing. Patient intolerant of even dysphagia diet. Await SUSTAINABLE AGRICULTURE SPECIALIST consult Qualifiers: Hepatic cirrhosis type: alcoholic cirrhosis Ascites presence: without ascites Qualified Code(s): K70.30 - Alcoholic cirrhosis of liver without ascites (7) Alcohol use disorder: Status: Chronic Assessment and plan: will check B12, folate levels and treat empirically. No hx of acute withdrawal. will monitor w/ CIWA scoring but otherwise not treat w/ benzodiazepines or methadone routinely. B12 was normal at >2000 but folate low at 5.9, will begin folate replacement at 5 mg daily (8) DVT prophylaxis: Status: Acute Assessment and plan: enoxaparin 40 mg SC daily added (9) Discharge planning issues: Status: Acute Assessment and plan: patient has interest in entering into hospice. I will consult with them to discuss the program and what services are available to him Subjective Subjective Interval history since last seen: Severino states that his right shoulder pain is much better since the anterior dislocation was reduced. His MRI did not show a stroke. Unclear as to the etiology of his dysphagia but he had MBSS this morning so we will see at what level his dysphagia. I spoke w/ Severino about going into hospice. Per Dr. Stewart, she indicated that Palliative care who has been following him as oupatient had recommended hospice but he was not ready for this yet. He now says that he is interested in entering into hospice. Exam Narrative Exam Narrative: Severino is cachectic appearing but in no acute respiratory distress, he has moist cough Lungs: some coarse rhonchi on the righ, otherwise diffusely diminshed breath sounds Heart: irregularly irregular Abdomen: scaphoid, soft, nontender Extremities: equal hand manufacturing mechanic and strength, equal strength in his feet w/ dorsiflexion and plantar flexion Right shoulder remains in the socket, nontender to palpation Objective Last Vital Signs Temp 36.4 C L 07/26/23 07:16 Pulse 53 L 07/26/23 12:47 Resp 14 07/26/23 12:47 BP 119/68 07/26/23 07:16 Pulse Ox 94 07/26/23 12:47 Laboratory Results - last 24 hr 07/25/23 12:08 Procalcitonin 0.2 Time Spent with Patient Time Spent with Patient: 25-34 minutes Time was spent: preparing to see the patient(eg.review tests), ordering medications,tests, procedures, referring, communicating with other health career development associate, indepentently interpreting results, counseling the patient and care coordination
[2023-07-26] MEDS: Enoxaparin 40 MG/0.4 ML SYR SC (13:02)
--- NOTE | 2023-07-26 13:24 | W.SPSTE ---
Date of service: 07/26/23 Time of Service: 10:40 Subjective Clinical (Bedside) Swallow Evaluation Speech Language Pathology Referred by: Dr. Bahena Referral Type: Clinical Swallow Evaluation Reason for Referral/HPI: Severino Cr is a 77 yo male with history of baseline dysphagia of unclear origin (followed by palliative care with concern of weightloss/malnutrition), alcohol use disorder, tobacco use disorder, and boucher's esophagus who was adm 07/23/23 s/p fall with R shoulder injury. CT of the head revealed question of acute CVA in R pontine area, MRI pending. He has been NPO awaiting WILDLAND FIREFIGHTER evaluation in light of poor ability to tolerate secretions and coughing on all trials. Severino reports longstanding dysphagia which has been ongoing for several years. He reports he eats lots of chocolate pudding/ice cream or puts prepared dinners in a wet primer powder blender due to difficulty swallowing. He denies difficulty drinking liquid. He states his dentition also makes chewing difficult. Has not worked with WILDLAND FIREFIGHTER to date, though states he has had barium swallow studies. Upper GI barium swallow study completed July 2020 did show silent aspiration. WILDLAND FIREFIGHTER IMPRESSIONS & RECOMMENDATIONS: Severino presents with suspected acute on chronic severe oral pharyngeal dysphagia as characterized by wet, non-productive cough throughout all PO trials, though possibly less with mildly thick vs thin liquids. MBSS is recommended for further assessment; will complete later this morning (07/26/23 at 12PM). Additional recommendations forthcoming. Please see recommendations below re: oral care/ice chip recommendations for patient pleasure/comfort. FURTHER WILDLAND FIREFIGHTER SERVICES: Patient to be followed while on unit. Upon Discharge,recommend WILDLAND FIREFIGHTER services at [facility] Recommendations: NPO; Awaiting MBSS later this morning Continue frequent oral care, use mouth moisturizer. Ice chips OK following oral care in bolt upright position. Please use suction toothbrush/swab for oral care SUBJECTIVE: Patient received alert/awake, agreeable to evaluation expressing high motivation to eat/drink Pain Reported? R shoulder Baseline Swallow Function: Puree/Thin liquids. Concern for weightloss/malnutrition/dehydration prior to admission PO Trials Assessed: Ice IDDSI 0 Thin Liquids (via tsp) IDDSI 2 Mildly Thick Liquid (via tsp and straw) IDDSI 4 Puree Solid (pudding) Oral Mechanism Examination: Dentition is sparse/missing. Oral mucosa is dry, red. Cranial Nerve Assessment: CN V ? Trigeminal Facial Sensation WNL Jaw Strength/ROM WNL ?WNL CN VII- Facial WNL labial ROM, strength, coordination. WNL lingual sensation WNL CN IX ? Glossopharyngeal WNL palatal elevation with phonation. No evidence of nasal emissions WNL CN X ? Vagus Vocal quality is weak, mildly hoarse. Cough is nonproductive and wet Impaired CX XII ? Hypoglossal WNL lingual ROM, strength, coordination WNL Oral Phase Findings: Difficulty with bolus manipulation Difficulty chewing Pharyngeal Phase Findings: Delayed swallow initiation Reduced hyolaryngeal elevation/excursion Cough after swallow Voice change after swallow? Throat clearing? Endorsed stasis? (back of throat w/ pudding) ? ASSESSMENT: Further WILDLAND FIREFIGHTER Services indicated. Patient to be followed while on unit. MBSS to be completed. Recommendation at Discharge: WILDLAND FIREFIGHTER Services at [facility] vs Home health Suggested Referrals: Ongoing palliative care consultation to guide goals of care Recommended Procedures:MBSS/VFSS Education Provided to: Nursing, Patient Topics Addressed: plan of care, dysphagia/aspiration concerns PLAN: Frequency: 2-3x/week for 1-2 weeks Goals: Vice President Business Development Goals: Patient will remain free from aspiration-related illness, malnutrition, and dehydration. Short Term Goals: Patient will tolerate Puree Diet and Mildly Thick liquids without overt s/s aspiration across 2/2 visits. Patient will tolerate PO trials for consideration of diet upgrade without overt s/s aspiration across 2/2 visits. WILDLAND FIREFIGHTER CPT Code: 44706 Clinical Swallowing Evaluation TOTAL TIME: 0095-8075 (25 Minutes) Coding CPT Codes EVALUATE SWALLOWING FUNCTION - 72962 ([id number]) Additional Codes Date of Service (63041) Date of service: 07/26/23
--- NOTE | 2023-07-26 13:51 | ST.MBS_ITS ---
Date of Service Date of service: 07/26/23 Time of Service: 12:00 Modified Barium Swallow Study Findings: Inpatient Video fluoroscopic Swallowing Evaluation (VFSE) / Modified Barium Swallow Study (MBSS) Speech Language Pathology Report Patient referred for VFSE/MBSS from Dr. Drew given severe dysphagia symptoms. HPI & Patient report of function: Patient is a 77 yo male with history chronic dysphagia of unclear origin, followed as outpatient by palliative care for concern of ongoing decline, including weight loss, malnutrition, alcohol/tobacco use disorder. He was admitted 07/23/23 following a fall with R shoulder injury. CT of the head revealed question of R pontine CVA, and patient made NPO over weekend, awaiting MANUFACTURING STOREPERSON evaluation. MRI completed immediately prior to this study reports to be negative for infarct. Severino states at baseline he eats mostly puddings/ice cream and uses a clubhouse attendant for any prepared meals due to chewing and swallowing difficulty. He was seen for non-instrumental swallow evaluation earlier this morning, and MBSS was recommended in light of aspiration symptoms (wet cough) with all trials. Otherwise he has not worked with MANUFACTURING STOREPERSON to date, and etiology of dysphagia is unclear. IMPRESSIONS: Patient presents with severe chronic oral pharyngeal sensorimotor dysphagia, with impaired swallow safety and efficiency. Primary deficits include: delayed swallow initiation reflex, reduced BOT retraction/hyolaryngeal excursion, and absent sensory reflex during laryngeal penetration/aspiration. There is also evidence of a cricopharyngeal bar. With thin liquids, silent aspiration occurs immediately before/during the swallow. With mildly thick liquids, there is no penetration/aspiration. With moderately thick liquids, there is deep penetration during the swallow. Most concerning, with trials of barium pudding there is large quantity stasis in the pyriforms that then spills over into the laryngeal vestibule and remains here without spontaneous ejection. With prompted cough, he was still unable to eject. The bolus eventually ejected following sip of mildly thick liquid and additional spontaneous coughing. Overall, in light of aforementioned deficits, patient is considered a very high risk for aspiration with all consistencies. In addition he is considered high risk for malnutrition and dehydration. Findings were discussed with Severino at length. We discussed concern to meet nutritional needs safely, and risk for worsening pulmonary complications. He states he wants to keep eating and drinking as it is important to him. He is not interested in tube feeding. Overall, swallow prognosis is considered guarded, given time since onset, cachexia, and lack of support (lives alone). Recommend ongoing palliative care support for clarification on goals of care. Patient's prognosis for behavioral swallow rehabilitation is poor in light of severity of cachexia. He would benefit from ongoing MANUFACTURING STOREPERSON intervention targeting education to mitigate risks for developing aspiration related illness, with focus on oral hygiene and small/slow bites and sips. RECOMMENDATIONS: Diet Texture Recommendation:?Patient at risk for aspiration with all consistencies. In light of his wish to continue eating/drinking, and chronic nature of dysphagia, the following is considered the safest/least restrictive diet. IDDSI LEVEL SOLIDS 4-Pureed Solids (Favor runny purees - applesauce consistency. If too thick, please add liquid to thin) LIQUIDS 2-Mildly Thick Liquids MEDICATIONS Crushed as able with applesauce, followed by sips of mildly thick liquids Diet texture modification is per patient's preference; please adjust diet textures at patient's discretion & collaboration with care team. Do not alter medications (e.g., cut)? without advice from your MD or pharmacist. Risk Management Strategies:? Small bites, approx [id number] Small sips, approx 10 mL Multiple swallows per bolus to encourage clearance of pharyngeal stasis/residue Control risk factors for aspiration pneumonia via (a) thorough oral hygiene & (b) maintaining physical mobility as tolerated PLAN: Frequency: 2-3x/week for 1-2 weeks Goals: Jail Goals: Patient will remain free from aspiration-related illness, malnutrition, and dehydration. Short Term Goals: Patient will tolerate Puree Diet and Mildly Thick liquids without overt s/s asp iration across 2/2 visits. Patient will tolerate PO trials for consideration of diet upgrade without overt s/s aspiration across 2/2 visits - deferred Patient will return demonstration of safe swallowing strategies across 2/2 visits. OBJECTIVE Videofluoroscopic Swallow Evaluation (VFSE/MBSS) was conducted in the lateral projection by Speech-Language Pathologist, in collaboration with Radiologist, to evaluate oropharyngeal swallow function. Anatomic view under fluoroscopy: WFL PO Barium Contrast Trials- Oral barium water-soluble contrast was administered as follows: IDDSI Level 0 Varibar thin liquid (40% w/v) IDDSI Level 2 Varibar nectar thick/mildly thick liquid (40% w/v) IDDSI Level 3 Varibar thin honey/liquidised/moderately-thick (40% w/v) IDDSI Level 4 Varibar pudding/pureed/extremely thick (40% w/v) MBSImP Component Scores: COMPONENT Scale SCORE 1 Lip closure (0-4) 2 Resulted in escape from interlabial space or lateral juncture, but no extension beyond vermilion border 2 Hold Position (0-3) 2 Resulted in posterior escape of less than half of the bolus 3 Bolus Preparation (0-4) 1 Resulted in slow prolonged chewing/mashing with complete re-collection 4 Bolus Transport (0-4) 1 Demonstrated delayed initiation of tongue motion 5 Oral Residue (0-4) 1 Was a trace, lining oral structures 6 Swallow Initiation (0-4) 3 Occurred when the bolus head was in the pyriform sinuses 7 Soft Palate Elevation (0-4) 0 Resulted in no bolus between soft palate and the pharyngeal wall 8 Laryngeal Elevation (0-3) 1 Was decreased with partial superior movement of thyroid cartilage/partial approximation of arytenoids to epiglottic petiole 9 Anterior Hyoid Motion (0-2) 1 Demonstrated partial anterior movement 10 Epiglottic Movement (0-2) 1 Resulted in partial inversion 11 Laryngeal Closure (0-2) 0 Was complete with no air or contrast in laryngeal vestibule 12 Pharyngeal Stripping Wave (0-2) 1 Was present, but diminished 13 Pharyngeal Contraction (0-3) NA 14 PES Opening (0-3) 1 Demonstrated partial distension/partial duration, with partial obstruction of flow 15 Tongue Base Retraction (0-4) 1 Allowed a trace column of contrast or air between tongue base and pharyngeal wall 16 Pharyngeal Residue (0-4) 2 Was a collection of residue within or on pharyngeal structures 17 Esophageal Clearance (0-4) NA Evidence of CP bar, question contributing to obstruction of pudding as large quantity remains in pyriforms Results: COMPONENT Scale SCORE 1 Oral Score (0-18) 7 2 Pharyngeal Score (0-29) 7 3 Esophageal Score (0-4) 0 Functional Oral Intake Scale: COMPONENT Scale SCORE 1 Pre-Study (1-7) 6 Total oral intake with no special preparation, but must avoid specific foods or liquid items 2 Post-Study (1-7) 5 Total oral intake of multiple consistencies requiring special preparation Penetration-Aspiration Scale: COMPONENT Scale SCORE 1 Thin liquid (1-8) 8 Contrast entered the airway, passed below the vocal folds, and no effort was made to eject. 2 [place] thick (1-8) 1 Contrast did not enter the airway 3 Honey thick (1-8) 2 Contrast entered the airway, remained above the vocal folds, and was ejected from the airway. 4 Pudding thick (1-8) 5 Contrast entered the airway, contacted the vocal folds, and was not ejected from the airway. 5 Cookie (1-8) NA PMHx: All Active Problems Hypoxic respiratory failure (Acute) Injury of shoulder, right (Acute) Acute urinary retention (Acute) Hypoxia (Acute) Acute CVA (cerebrovascular accident) (Acute) Encounter for hospice care (Acute) Muscular deconditioning (Acute) Acute pain of right shoulder (Acute) Need for home health care (Acute) Frequent falls (Chronic) Palliative care patient (Acute) Advance care planning (Acute) Unexplained weight loss (Acute) Osteoporosis (Chronic) Protein calorie malnutrition (Acute) Venous stasis (Acute) Onychomycosis (Acute) At risk for falls (Acute) Inflamed seborrheic keratosis (Acute) Right wrist tendonitis (Acute) Hiatal hernia (Chronic) Noted on 01/17/2021 CTLung nodules (Acute) Portal hypertension (Acute) Anemia (Chronic) Frailty syndrome in geriatric patient (Chronic) Dysphagia (Chronic) 10/17/2018 EGD ([facility]): Smalls's & interval resolution of esophageal varices seen on previous EGD (see Smalls's dx comments for details); 06/06/2019 Barium Swallow: some dysmotility & aspiration --> referred to Speech Therapy 04/12/20 [facility] Esophageal Manometry; 05/17/2020 EGD: Grade I esophageal varices, duodenal erosions w/o bleeding, no obstructive cause for dysphagiaBarrett's esophagus (Chronic) 10/17/2018 EGD ([facility]): esophageal mucosal changes classified as Smalls's stage C0-M1 per [place] criteria (also showed resolution of esophageal varices on carvedilol 6.25 mg BID)Tobacco use disorder (Chronic) 1.5- 2 PPD not interested in quitting estless leg syndrome (Chronic) Alcohol use disorder (Chronic) not interested in quitting 08/2020 approx 48-60 oz of beer + hard liquor dailySigmoid diverticulosis (Chronic 02/01/18) 02/01/2018 colonoscopy Incisional hernia, without obstruction or gangrene (Chronic 01/17/18) [facility] GI consult Hypertension (Chronic 08/01/14) Hyperlipidemia (Chronic 03/24/13) 11/2018 labs: good response to high potency statin, continueHepatic cirrhosis (Chronic 01/14/18) [facility] GI 02/24/2018 Fibroscan: stage 4 liver fibrosis, consistent with cirrhosis with possible portal HTN 06/22/2018 EGD (Dr. Hoang): confirmed portal HTN with grade 1 esophageal varices Sodium restriction 2000 mg for ascites controlGastroesophageal reflux disease (Chronic 03/15/13) surgery 08/1990Chronic obstructive lung disease (Chronic 03/15/13) 09/06/2020 PFTs ([facility]): moderate-severe (FEV1 50-59%)Bilateral lower extremity edema (Chronic 01/14/18) Related to cirrhosis BPH w urinary obs/LUTS (Chronic 03/10/13) Rectosphincteric dyssynergia (Chronic) Manifested as fecal incontinence and constipation; resolved with daily fiber supplementation Medical History Femur fracture, left (~02/2021) Other bursitis of elbow, right elbow (01/02/21) Aspiration pneumonia due to regurgitated food Closed fracture of left orbit Fracture of nasal bone Periprosthetic fracture around internal prosthetic left hip joint C3 cervical fracture Intertrochanteric fracture of left femur Family history of malignant melanoma ov note dated 05/10/20-Dr. Alatorrequamous cell carcinoma FaceBasal cell carcinoma (BCC) FaceHydrocele of testis (03/24/13) S/p repair L; then occurred on R side and now chronicRotator cuff syndrome (03/24/13) S/p B/L repairEsophageal varices 06/22/2017 EGD (Dr. 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 Hale Derm Surgical History S/P skin biopsy (~09/2020) R inguinal fold on margins of scrotum-Dr HaleH/O endoscopy [facility] 05/17/20 at [facility] - no need for further to have any further colonscopy per reportHistory of esophagogastroduodenoscopy (EGD) (06/22/18) dr hoang, grade I esophageal varicesright shoulder (03/24/00) Repair of incision from Marci fundoplication (03/24/87) Prostatectomy (~05/2007) Marci Fundoplication (03/24/85) Left shoulder (09/24/07) Previous Imaging: No prior MBSS. Last barium swallow was in July 2020, limited by silent aspiration. Trialed Compensatory Strategies & Outcome: Maneuvers Successful (+) Unsuccessful (-) Postures Successful (+) Unsuccessful (-) 3 second Preparatory Set? ? Unsuccessful Chin Tuck Posture? ? Unsuccessful Cough? ? Posterior Head tilt? Reflexive? Cued? ? Unsuccessful ? ? Throat Clear? ? Head Tilt to? Reflexive? Left? Cued? Unsuccessful ? Right? ? Saliva swallow? Unsuccessful ? Head Turn/Rotate to? ? Supraglottic Swallow? Left? ? Super-supraglottic Swallow? Right? ? Bolus Modifications Successful (+) Unsuccessful (-) Delivery/Alternating Consistencies ? Follow with Liquid Wash Partially successful ? Follow with Solid Bolus? Delivery/Via Straw? ? Reduced Volume? ? Reduced Rate of Intake? ? Increased Viscosity? ? Other:?? ? TIME: 12:00-12:40 (40 min MBSS) Thank you for allowing us to take part in this patient's care. Please feel free to contact the [facility] Speech Language Pathology Department with any questions/concerns. Coding CPT Codes MOTION FLUOROSCOPY/SWALLOW - [id number] ([id number])
[2023-07-26] MEDS: Folic Acid 1 MG TAB 5 MG PO (15:47)
--- NOTE | 2023-07-26 17:16 | PCNE_ITS ---
Date of service: 07/26/23 Time of Service: 16:15 History of Present Illness Narrative: Mr. Haq is a 77 y/o M est PC currently inpt at [facility] 2/ R shoulder fracture/dislocation, FTT; PMHx sig for hepatic cirrhosis, COPD, cachexia, osteoporosis, venous stasis, AK/SK, lung nodules, portal HTN, anemia, dysphagia w/Smalls's esophagus, tobacco and alcohol use disorder, abdominal hernia, HTN, BPH Hospital course: presented to ED 07/16 s/p fall, work up w/no acute fracture, w/hypoxia and labile BPs, discharged home; PCP visit 07/20 w/ order for PT; 07/23/23 represented to ED after not moving from chair for 24hrs, son called ambulance; in ED hypoxic and dehydrated; some concern for acute R doug CVA (MRI today r/o stroke), admitted for ongoing work up; ortho consult w/[facility] recommend transfer for shoulder reduction, which occurred on 07/24; ortho consult recommends sling w/movement, okay to not use sling if shoulder immobilized; has had labile BP; dehydration corrected w/IVF; on 07/25 increased congestion, suspected aspiration PNA; OUTBOUND SALES 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 consult recommends thickened fluids/purees, no FT; started cefepime for suspected PNA; Severino is comfortable w/discharge to SNF w/plans for manager terminal planning to include potential permanent placement. Would like to start w/acute transfer to H/R for SNF and make chcf plan based on acute recovery; would be agreeable to hospice, when he has appropriate caregiving, he is aware he is not safe at home at this time. Son Dion is flying in from [place] today to come visit, will be here tomorrow. He would like to review some of these options w/his son Denies pain, feels its appropriate at this time w/apap and ibuprofen; reports his course is as serious as ever, he is comfortable w/receiving abx for this; he is okay w/IVF at this time as well, again would like to talk to son to review this. Edema now less than it has been in several months, elevating and diuresis I didn't think I was making it out of this one, he reports he didn't think he was going to survive this admission, but is now feeling more hopeful. he does see the end of his life coming sooner has not had any alcohol or tobacco for 3 days, not doing too bad, reports tolerating it, would like a nicotine patch His preference would be to go to H/R, above all else. Is okay with other SNF, only if has to. Assessment and Plan Assessment and plan (1) Weakness: Status: Acute Assessment and plan: agreeable to SNF placement not safe to return home at this time continue PT (2) Hill-Sachs fracture of right humerus: Status: Acute Assessment and plan: s/p reduction limited sling use at this time d/t increased risk for skin tears okay to keep out of sling, per ortho keep immobilized out of sling Qualifiers: Encounter type: initial encounter Fracture type: closed Qualified Code(s): S42.291A - Other displaced fracture of upper end of right humerus, initial encounter for closed fracture (3) Hypoxic respiratory failure: Status: Acute Assessment and plan: continue O2, duonebs, spirometry PRN chronic, worsened w/suspected aspiration PNA, started on abx, okay w/continuing at this time CXR pleural effusions w/no infiltrates Qualifiers: Chronicity: acute on chronic Qualified Code(s): J96.21 - Acute and chronic respiratory failure with hypoxia (4) Injury of shoulder, right: Status: Acute Qualifiers: Encounter type: initial encounter Qualified Code(s): S49.91XA - Unspecified injury of right shoulder and upper arm, initial encounter (5) Muscular deconditioning: Status: Acute Assessment and plan: as above (6) Frequent falls: Status: Chronic Assessment and plan: w/recent injury not safe to retun home at this time; may consider in future IF and rescue fire fighter crash fire caregiving lined up (7) Unexplained weight loss: Status: Acute (8) Protein calorie malnutrition: Status: Acute Assessment and plan: hospice admitting diagnosis continue diet as tolerated, encourage high protein as able Qualifiers: Protein-calorie malnutrition severity: unspecified severity Qualified Code(s): E46 - Unspecified protein-calorie malnutrition (9) Venous stasis: Status: Acute Assessment and plan: w/wounds continue wound care (10) Frailty syndrome in geriatric patient: Status: Chronic Assessment and plan: chronic, worsening (11) Dysphagia: Status: Chronic Assessment and plan: OUTBOUND SALES 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 consult today; recommend thickened fluids/pureed foods no FT okay w/IVF for now Qualifiers: Dysphagia type: unspecified Qualified Code(s): R13.10 - Dysphagia, unspecified (12) Tobacco use disorder: Status: Chronic Assessment and plan: recommend nicotine patch (13) Alcohol use disorder: Status: Chronic Assessment and plan: w/no active signs of withdrawal this admission Severino reports doing okay w/no alcohol (14) Hepatic cirrhosis: Status: Chronic Assessment and plan: preference for no ongoing management/work up contributing to hospice eligibility Qualifiers: Hepatic cirrhosis type: alcoholic cirrhosis Ascites presence: without ascites Qualified Code(s): K70.30 - Alcoholic cirrhosis of liver without ascites (15) Chronic obstructive lung disease: Status: Chronic Assessment and plan: w/poor secretion clearance as above Qualifiers: COPD type: unspecified COPD Qualified Code(s): J44.9 - Chronic obstructive pulmonary disease, unspecified (16) Bilateral lower extremity edema: Status: Chronic Assessment and plan: significantly reduced since previous PC visit resulting in more weight loss continue elevating throughout day, diuresis (17) BPH w urinary obs/LUTS: Status: Chronic Assessment and plan: difficulty w/Red placement, urology consulted for Red placement (18) Aspiration pneumonia due to regurgitated food: Assessment and plan: suspected; see OUTBOUND SALES 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 note as above Qualifiers: Laterality: unspecified laterality Lung location: unspecified part of lung Qualified Code(s): J69.0 - Pneumonitis due to inhalation of food and vomit (19) Discharge planning issues: Status: Acute (20) Encounter for hospice care: Status: Acute Assessment and plan: Severino is comfortable w/going on hospice at this time, however does not have caregiver support at home, so would be unable to return home. He does not have manager terminal insurance for additional coverage support. Hospice Dx: protein calorie malnutrition 2/2 hepatic cirrhosis, COPD, dysphagia; frequent falls, ADL assistance, unexplained weight loss (21) Advance care planning: Status: Acute Assessment and plan: Severino has a strong preference for discharge to [facility], and would even be willing to pay extra to ensure getting there. We reviewed acute hospital stay, transfer to SNF for ongoing acute rehab w/plans to transition to manager terminal plan s/p discharge from hospitalization; consider remaining in SNF for manager terminal vs home w/and rescue fire fighter crash fire support and hospice vs community prison Son will arrive this evening and we will continue reviewing preferences reviewed current treatments (IVF/abx), Severino is okay w/ongoing management of all current acute conditions; would want to continue to be able to eat pureed diet, aware of requiring additional assistance and unsafe to return home. Severino can feel the end of his life coming, he was shocked he was able to rally as much as he did in the past two days, was unsure if he would leave the hospital this time, does not foresee returning home, he is comfortable with this and is looking forward to reviewing things with his some, is optimistic for some help coordinating care spent 24 mins w/ACP (22) Palliative care encounter: Status: Acute Assessment and plan: PC follows Mr. Haq closely in the community, PC to continue follow during inpatient stay pending transfer to SNF - previously added to hospice watch list, will refer as appropriate s/p discharge - need for and rescue fire fighter crash fire caregiver support at this time Review of Systems Narrative: as per HPI PFSH All Active Problems (Updated 07/26/23 @ 17:38 by Gina Skelton NP) Palliative care encounter (Acute) Discharge planning issues (Acute) Weakness (Acute) DVT prophylaxis (Acute) Hill-Sachs fracture of right humerus (Acute) Hypoxic respiratory failure (Acute) Injury of shoulder, right (Acute) Acute urinary retention (Acute) Hypoxia (Acute) Encounter for hospice care (Acute) Muscular deconditioning (Acute) Acute pain of right shoulder (Acute) Need for home health care (Acute) Frequent falls (Chronic) Palliative care patient (Acute) Advance care planning (Acute) Unexplained weight loss (Acute) Osteoporosis (Chronic) Protein calorie malnutrition (Acute) Venous stasis (Acute) Onychomycosis (Acute) At risk for falls (Acute) Inflamed seborrheic keratosis (Acute) Right wrist tendonitis (Acute) Hiatal hernia (Chronic) Noted on 01/17/2021 CT Lung nodules (Acute) Portal hypertension (Acute) Anemia (Chronic) Frailty syndrome in geriatric patient (Chronic) Dysphagia (Chronic) 10/17/2018 EGD ([facility]): Smalls's & interval resolution of esophageal varices seen on previous EGD (see Smalls's dx comments for details); 06/06/2019 Barium Swallow: some dysmotility & aspiration --> referred to Speech Therapy 04/12/20 [facility] Esophageal Manometry; 05/17/2020 EGD: Grade I esophageal varices, duodenal erosions w/o bleeding, no obstructive cause for dysphagia Smalls's esophagus (Chronic) 10/17/2018 EGD ([facility]): esophageal mucosal changes classified as Smalls's stage C0-M1 per [facility] criteria (also showed resolution of esophageal varices on carvedilol 6.25 mg BID) Tobacco use disorder (Chronic) 1.5- 2 PPD not interested in quitting 08/2020 Restless leg syndrome (Chronic) Alcohol use disorder (Chronic) not interested in quitting 08/2020 approx 48-60 oz of beer + hard liquor daily Sigmoid diverticulosis (Chronic 02/01/18) 02/01/2018 colonoscopy Incisional hernia, without obstruction or gangrene (Chronic 01/17/18) [facility] GI consult Hypertension (Chronic 08/01/14) Hyperlipidemia (Chronic 03/24/13) 11/2018 labs: good response to high potency statin, continue Hepatic cirrhosis (Chronic 01/14/18) [facility] GI 02/24/2018 Fibroscan: stage 4 liver fibrosis, consistent with cirrhosis with possible portal HTN 06/22/2018 EGD (Dr. Hoang): confirmed portal HTN with grade 1 esophageal varices Sodium restriction 2000 mg for ascites control Gastroesophageal reflux disease (Chronic 03/15/13) HH surgery 08/1990 Chronic obstructive lung disease (Chronic 03/15/13) 09/06/2020 PFTs ([facility]): moderate-severe (FEV1 50-59%) Bilateral lower extremity edema (Chronic 01/14/18) Related to cirrhosis BPH w urinary obs/LUTS (Chronic 03/10/13) Rectosphincteric dyssynergia (Chronic) Manifested as fecal incontinence and constipation; resolved with daily fiber supplementation Medical History Femur fracture, left (~02/2021) Other bursitis of elbow, right elbow (01/02/21) Aspiration pneumonia due to regurgitated food Closed fracture of left orbit Fracture of nasal bone Periprosthetic fracture around internal prosthetic left hip joint C3 cervical fracture Intertrochanteric fracture of left femur Family history of malignant melanoma ov note dated 05/10/20-Dr. Hale Squamous cell carcinoma Face Basal cell carcinoma (BCC) Face Hydrocele of testis (03/24/13) S/p repair L; then occurred on R side and now chronic Rotator cuff syndrome (03/24/13) S/p B/L repair Esophageal varices 06/22/2017 EGD (Dr. 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 Hale Derm Surgical History S/P skin biopsy (~09/2020) R inguinal fold on margins of scrotum-Dr Hale H/O endoscopy 05/17/20 [facility] H/O colonoscopy 05/17/20 at [facility] - no need for further to have any further colonscopy per report History of esophagogastroduodenoscopy (EGD) (06/22/18) dr hoang, grade I esophageal varices right shoulder (03/24/00) Repair of incision from Marci fundoplication (03/24/87) Prostatectomy (~05/2007) Marci Fundoplication (03/24/85) Left shoulder (09/24/07) Family History Mother , resp failure due to COPD age 69 COPD (chronic obstructive pulmonary disease) Smoker Father , widespread cancer age 73 Personal history of malignant neoplasm prostate Malignant melanoma Smoker Prostate cancer COPD (chronic obstructive pulmonary disease) Son No problems noted. Daughter No problems noted. Brother , age 68 from COPD COPD (chronic obstructive pulmonary disease) Smoker Sister , age 62 from pancreatic cancer Smoker Pancreatic cancer Social History Smoking/Tobacco Use Status: Current every day Tobacco Type: cigarettes Tobacco: How many years used: 60 Quit status: has quit before Second Hand Exposure: No Counseling given: counseling >3 minutes Smoking risk assessment performed?: Yes Alcohol Intake: current Alcohol Intake frequency: 3 or more drinks per day Alcohol type: beer and hard liquor Counseling provided: other Drug use: Never Substance use type: does not use Counseling provided: provider counseling Caregiver/Support person: No Household members: none Housing: house Number of Children: 2 number of grandchildren: 3 Communication Needs: Corrective Lenses Education Level: high school Do you need help understanding health information?: Often 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; 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 Do you think of yourself as: straight/heterosexual Current gender identity: male What is your relationship status?: How often do you talk on the phone with friends or family?: once per week How often do you get together with friends or relatives?: once per week Panel score (0-1 are the most socially isolated patients): 0 What type of physical activity do you participate in: none Special tg needs: No Agree to transfusion: No Seatbelt use: always Water heater temp set <120 deg: Yes Working smoke detector in home: Yes Fire extinguisher in home: Yes Carbon monox detector in home: Yes Firearms in home: No Do you feel safe at home: Yes Do you feel safe in your relationship?: Yes Additional Social history: lives at home alone MIROSLAVARN 07/23/23 Exam Narrative Exam Narrative: General: older than stated edge, thin/cachectic, frail/ill appearing; ensure on face/khan HEENT: hearing WNL; cough w/swallowing, increased secretions; atraumatic/normocephalic Neck: no masses, no JVD Resp: even and unlabored, able to speak full sentences w/o SOB; coughs intermittent throughout w/w/o food, wet; Skin: several scattered bandages upper/lower extremeties; atrophy, dry, Ext: BLE erythemous, trace edema w/wrinkled skin; BUE limited movement, no shoulder movement Psych: cooperative, MS WNL; thought process appropriate; judgment/insight good/fair Results Last Vital Signs Temp 97.7 F 07/26/23 15:20 Pulse 62 07/26/23 15:20 Resp 18 07/26/23 15:20 BP 121/76 07/26/23 15:20 Pulse Ox 90 L 07/26/23 15:20 Labs 07/25/23 06:10 07/25/23 12:08
[2023-07-26] MEDS: Albuterol 2.5 MG/3 ML INH SOLN VIAL UPD (19:33)
[2023-07-26] MEDS: Protein Nutritional Supplement 16 GM 1 OUNCE PACKET PO (20:48)
[2023-07-27] MEDS: Scopolamine 1 MG/3 DAYS PATCH TD (00:01)
[2023-07-27] MEDS: ACETAMINOPHEN 1,000 MG/100 ML BTL 400 MG IVPB ×3 (00:57→18:20)
[2023-07-27 03:46] VITALS: BP 142/79; PULSE 81; RESP 16; TEMP 36.6; O2SAT 87
[2023-07-27 05:26] VITALS: PULSE 100; RESP 2; RESP 20; RESP 3; RESP 7; RESP 8; RESP 9; O2SAT 92
[2023-07-27] MEDS: Albuterol/Ipratropium 3 ML UPD VIAL UPD (05:26)
[2023-07-27 05:35] VITALS: PULSE 98; RESP 20; RESP 3; RESP 7; RESP 8; RESP 9; O2SAT 92
[2023-07-27 07:17] VITALS: BP 123/71; PULSE 90; RESP 17; TEMP 36.2; O2SAT 94
[2023-07-27] MEDS: Pantoprazole 40 MG VIAL IVP (08:16)
[2023-07-27] MEDS: Budesonide/Formoterol 160/4.5 6 GM 60 PUFF INH IH (08:23)
[2023-07-27] MEDS: Tiotropium Bromide-Respimat 10 PUFF INH 2 PUFF IH (08:23)
[2023-07-27] MEDS: MORPHine 2 MG/ML SYR IVP ×3 (08:30→16:57)
[2023-07-27 10:38] VITALS: BP 131/84; PULSE 57; RESP 19; TEMP 36.4; O2SAT 93
[2023-07-27] MEDS: Ketorolac 15 MG/ML VIAL IVP (10:44)
[2023-07-27] MEDS: Normal Saline Flush 10 ML SYR IVP ×4 (10:45→19:15)
--- NOTE | 2023-07-27 10:50 | NUR.NOTE ---
Nursing Note: morning medications not given to pt d/t pt unable to take anything by ATT
--- NOTE | 2023-07-27 10:53 | W.PM.PROGNOT ---
Date of Service Date of service: 07/27/23 Time of Service: 10:53 Assessment and Plan Assessment and plan (1) Dysphagia causing pulmonary aspiration with swallowing: Status: Acute Assessment and plan: feedings for comfort measures; no further workup will be pursued in the event of acute respiratory event but meds will be given to make him comfortable including any respiratory treatments (2) Hypoxic respiratory failure: Start date: 07/23/23 Status: Acute Assessment and plan: combination of underlying COPD, recurrent aspiration, repeated CXR did not demonstrate any new infiltrates, patient was put on omnicef yesterday. Yesterday he was not requiring supplemental oxygen but now is on 4 lpm. At this point he will go on LEAD JAVA DEVELOPER ARCHITECT and we will stop monitoring but provide comfort support w/ prn nebulizers, and supplemental oxygen. Qualifiers: Chronicity: acute on chronic Qualified Code(s): J96.21 - Acute and chronic respiratory failure with hypoxia (3) Hill-Sachs fracture of right humerus: Status: Acute Assessment and plan: Continue immobilization with sling and swath status post reduction of anterior dislocation. Patient has had some increased pain in his shoulder. I have ordered Duragesic patch to give him some constant release of narcotic to control his pain. He has prn morphine for breakthrough pain. Qualifiers: Encounter type: initial encounter Fracture type: closed Qualified Code(s): S42.291A - Other displaced fracture of upper end of right humerus, initial encounter for closed fracture (4) Frequent falls: Status: Chronic Assessment and plan: continue to work w/ P.T. (5) Acute urinary retention: Start date: 07/23/23 Status: Acute Assessment and plan: remote hx of prostate cancer surgically treated at [facility] per patient, done years ago. continue duque catheter which was placed by Dr. Beckman this admission. (6) Hepatic cirrhosis: Status: Chronic Qualifiers: Hepatic cirrhosis type: alcoholic cirrhosis Ascites presence: without ascites Qualified Code(s): K70.30 - Alcoholic cirrhosis of liver without ascites (7) Alcohol use disorder: Status: Chronic Assessment and plan: will check B12, folate levels and treat empirically. No hx of acute withdrawal. will monitor w/ CIWA scoring but otherwise not treat w/ benzodiazepines or methadone routinely. B12 was normal at >2000 but folate low at 5.9, will begin folate replacement at 5 mg daily (8) DVT prophylaxis: Status: Acute Assessment and plan: enoxaparin 40 mg SC daily added (9) Discharge planning issues: Status: Acute Assessment and plan: patient has interest in entering into hospice. Patient will be made LEAD JAVA DEVELOPER ARCHITECT and remain at [facility] as he appears to be imminently declining. Should he rally and improve then consider transfer to SNF and then enter into hospice care. Subjective Subjective Interval history since last seen: Severino reportedly had another aspiration event last night. He is not tolerating his feedings despite PROTOTYPE SEWER recommendations. His MRI did not demonstrate a stroke. His son Trey was present this morning (he came in from his home in [place]). I told Trey that I feel that his father is dying. He has been wasting away for several months and has been followed by Palliative care as outpatient and have been holding discussions of Severino going into hospice. I explained to Trey that his father could return home with hospice only if Severino has 24 hr care provider w/ him. Neither Trey nor his sister Genna who lives in [facility]. are available to stay with their father for any prolonged period. Trey also tells me that his father would not want any feeding tubes and I explained to Trey that without some form of enteral nutrition, his father will likely pass away [facility]. has indicated to me that the patient has a SNF bed offer from [facility]. After discussion w/ his son and the patient, Severino will go under LEAD JAVA DEVELOPER ARCHITECT orders and our focus will be on keeping him comofortable Exam Narrative Exam Narrative: Severino was resting w/ his eyes closed but he did awaken w/ gentle touch and calling of his name HEENT: dry mucous membranes Lungs: diminished breath sounds at the bases; no rhonchi Heart: Regular Abdomen; scaphoid, nontender Extremities: extreme muscle wasting, multiple Mepilex patchs over superficial skin wounds on both legs and his arms. Objective Last Vital Signs Temp 36.4 C L 07/27/23 10:38 Pulse 57 L 07/27/23 10:38 Resp 19 07/27/23 10:38 BP 131/84 07/27/23 10:38 Pulse Ox 93 07/27/23 10:38 Time Spent with Patient Time Spent with Patient: 35-49 minutes Time was spent: preparing to see the patient(eg.review tests), referring, communicating with other health lawn caretaker, indepentently interpreting results and counseling the patient (son, Trey)
--- NOTE | 2023-07-27 11:25 | TELEFU_ITS ---
Date of service: 07/27/23 Time of Service: 11:25 Nutrition Note NOTE: Severino is a 77yo male who is inpatient currently for R shoulder fracture/dislocation, FTT; PMHx sig for hepatic cirrhosis, COPD, cachexia, osteoporosis, venous stasis, AK/SK, lung nodules, portal HTN, anemia, dysphagia w/Smalls's esophagus, tobacco and alcohol use disorder, abdominal hernia, HTN, BPH. Pt has lost 10.21kg over the last 12 months (wt on 08/11/22 was 51.7kg), which is a 19.7% body weight loss. His albumin (07/24) is low at 2.2 and last prealbumin lab (june of 2020) was low at 9. Pt was NPO during his first 2 days of admission and has now advanced to a regular diet with puree consistency and milk thick liquids. Breakfast untouched this morning. He is ordered for liquid protein concentrate TID - unsure of acceptance/toleration of this. Pt is NDR/DNI and has expressed desire for no feeding tube on COLST form. Per physician update this morning, Pt has taken a downturn and most likely will pass away in the next few days - will be transitioning to FORECLOSURE [place]. Will provide meals as requested by pt, family or nursing staff. However no aggressive nutrition intervention planned at this time. Time Spent in Nutritional Counseling and Treatment: 15 minutes
--- NOTE | 2023-07-27 13:23 | CMPROGNOTE_ITS ---
Date of service: 07/27/23 Time of Service: 13:23 Care Management Progress Note Progress Note Text Progress Note Text: S/O: Severino was lying in bed when CM met with him. Per report, Severino had an aspiration event last night, and his condition has declined greatly overnight. When CM visited, his son, Dion, was visiting, and Dion stated that he has not been able to communicate; Severino did not verbally respond to CM talking to him. Dion spoke to MD and Palliative care, and the decision was made to transition Severino to comfort measures. He will remain on IV fluids while Dion connects with his sister, Elli, who is planning to visit as well. CM asked for a refreshment cart in the room with Alba, Dion's preference. Severino will likely remain at [facility] for end of life care. CM will continue to support Severino and his family during this difficult time. A: Severino is a 77 year old male admitted to [facility] on 07/23/23 for R CVA, shoulder pain, urinary retention, respiratory failure. P: Anticipate Severino will go to SNF for continued rehab post discharge, as recommended by PT. His transportation will be dependent on disposition and mobility at the time of discharge. He will follow up with his PCP and discharge plan of care. CM will continue to follow.
--- NOTE | 2023-07-27 13:24 | PCPN_ITS ---
Date of service: 07/27/23 Time of Service: 12:00 Assessment and Plan Assessment and plan (1) Hill-Sachs fracture of right humerus: Status: Acute Assessment and plan: s/p reduction limited sling use at this time d/t increased risk for skin tears okay to keep out of sling, per ortho keep immobilized out of sling pain management w/fentanyl 12mcg/hr patch started today; continue morphine PRN Qualifiers: Encounter type: initial encounter Fracture type: closed Qualified Code(s): S42.291A - Other displaced fracture of upper end of right humerus, initial encounter for closed fracture (2) Hypoxic respiratory failure: Status: Acute Assessment and plan: reviewed PRN O2 use vs continuos use for comfort w/son if transition is made today for FIXTURE FABRICATOR REPAIRER, consider stopping O2, currently on 4L, and use only for comfort Qualifiers: Chronicity: acute on chronic Qualified Code(s): J96.21 - Acute and chronic respiratory failure with hypoxia (3) Injury of shoulder, right: Status: Acute Assessment and plan: as above Qualifiers: Encounter type: initial encounter Qualified Code(s): S49.91XA - Unspecified injury of right shoulder and upper arm, initial encounter (4) Frequent falls: Status: Chronic Assessment and plan: w/recent injury not safe to retun home at this time; (5) Unexplained weight loss: Status: Acute (6) Protein calorie malnutrition: Status: Acute Assessment and plan: hospice admitting diagnosis continue diet as tolerated, is not awake enough today to participate in meals may be provided on PRN bases if Tyrone would like Qualifiers: Protein-calorie malnutrition severity: unspecified severity Qualified Code(s): E46 - Unspecified protein-calorie malnutrition (7) Venous stasis: Status: Acute Assessment and plan: w/wounds continue wound care and diligent skin care (8) Frailty syndrome in geriatric patient: Status: Chronic Assessment and plan: chronic, worsening (9) Dysphagia: Status: Chronic Assessment and plan: w/another potential aspiration event overnight currently not awake enough to eat difficulty clearing secretions, continue scopolamine patch, atropine drops consider adding hyoscyamine anticipate increased secretions Qualifiers: Dysphagia type: unspecified Qualified Code(s): R13.10 - Dysphagia, unspecified (10) Tobacco use disorder: Status: Chronic Assessment and plan: recommend nicotine patch if needed does not at this time (11) Alcohol use disorder: Status: Chronic Assessment and plan: w/no active signs of withdrawal this admission Tyrone reports doing okay w/no alcohol (12) Hepatic cirrhosis: Status: Chronic Assessment and plan: preference for no ongoing management/work up contributing to hospice eligibility Qualifiers: Hepatic cirrhosis type: alcoholic cirrhosis Ascites presence: without ascites Qualified Code(s): K70.30 - Alcoholic cirrhosis of liver without ascites (13) Chronic obstructive lung disease: Status: Chronic Assessment and plan: w/poor secretion clearance as above Qualifiers: COPD type: unspecified COPD Qualified Code(s): J44.9 - Chronic obstructive pulmonary disease, unspecified (14) BPH w urinary obs/LUTS: Status: Chronic Assessment and plan: duque w/output 100ccs at time of visit nursing reports continues to make urine consider d/c'ing IVF or slowed taper to 15mL/hr rate prior to full transition to FIXTURE FABRICATOR REPAIRER reviewed plan for stopping IVF if transition to FIXTURE FABRICATOR REPAIRER (15) Aspiration pneumonia due to regurgitated food: Assessment and plan: likely contributing to decline in past 12 hours continue abx for now, pending conversation w/daughter whom son is planning to talk to this afternoon reviewed plan for stopping antibiotics if transition to FIXTURE FABRICATOR REPAIRER Qualifiers: Laterality: unspecified laterality Lung location: unspecified part of lung Qualified Code(s): J69.0 - Pneumonitis due to inhalation of food and vomit (16) Discharge planning issues: Status: Acute Assessment and plan: Tyrone has a bed offer at SNF will hold pending his decline overnight, if in 48 hours he is stable, consider transfer at that time per plan outlined yesterday (17) Encounter for hospice care: Status: Acute Assessment and plan: Hospice Dx: suspected aspiration PNA w/ protein calorie malnutrition 2/2 hepatic cirrhosis, COPD, dysphagia; frequent falls, ADL assistance, unexplained weight loss - hospitalist placed FIXTURE FABRICATOR REPAIRER orders, w/IV availability for meds d/t not tolerating oral meds at this time It appears that Tyrone is actively dying, however we will continue to monitor for changes, has recently received morphine which may be contributing to alertness Tyrone is comfortable w/going on hospice at this time, however does not have caregiver support at home, so would be unable to return home. He does not have intermediate insurance for additional coverage support. (18) Advance care planning: Status: Acute Assessment and plan: Tyrone will remain at [facility] at this time. pending how he does in the next 48 hours may consider transfer to SNF w/plan for hospice admission at that time. if no improvement/ongoing decline, will remain at [facility] for EoL care reviewed changes in care w/FIXTURE FABRICATOR REPAIRER w/son: removing telemetry, O2 and other interventions w/focus on comfort; will review w/daughter and make sure she feels comfortable w/plan prior to transition reviewed Tyrone's historically preferences stated to PC, conversations from yesterday regarding aware of possibility of not leaving the hospital this admission spent 35 mins w/ACP (19) Palliative care encounter: Status: Acute Assessment and plan: PC will continue to follow Tyrone closely during this admission and through his transition to EoL or discharge to SNF w/hospice support It has been my pleasure to care for Tyrone over the past few months. Subjective Subjective Interval history since last seen: Tyrone had a decline overnight. per nursing he had a visit w/his son last night and after he left he became minimally responsive w/slowed respiratory rate, no apnea episodes. He has remained like this through this morning. Son confirms same observations. 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 - skin: several skin tears throughout body, w/dressings in tact; skin dry; tyrone nods yes to itchiness - urine: continues to makes urine; continues w/IVF LR at 75ml/hr rate; edema remains controlled - respiratory: increased secretions; started on scopolamine patch yesterday, w/HOB elevated improved; has atropine available son Dion visiting. while Tyrone did not talk in depth with Dion/Corrine about his EoL preferences, typically avoided this conversation, Dion is aware that Tyrone preferred now to draw out things, and feels comfortable w/transitioning to FIXTURE FABRICATOR REPAIRER/dying care in hospital, however he would like to review and confirm this with sister Elli (co-agent) this afternoon prior to stopping IVF or abx all agree Tyrone is not safe returning home w/o time piece repairer caregiver assistance, not possible at this time. Exam Narrative Exam Narrative: General: older than stated age, thin/cachectic, frail/ill appearing; sleeping, eyes do not open during exam HEENT: atraumatic/normocephalic; mouth open, dry MM Neck: no masses, no JVD Resp: even and unlabored, respiration rate slowed, down to 8-10; no coughing, no audible BS, no cough Skin: several scattered bandages upper/lower extremeties; atrophy, dry, Ext: BLE erythemous, no w/wrinkled skin; BUE/BLE pulses 2+ Objective Last Vital Signs Temp 97.5 F L 07/27/23 10:38 Pulse 57 L 07/27/23 10:38 Resp 19 07/27/23 10:38 BP 131/84 07/27/23 10:38 Pulse Ox 93 07/27/23 10:38
--- NOTE | 2023-07-27 14:15 | PHACLINREV_ITS ---
Pharmacy Admission Review Admission Clinical Review Admission Pharmacy Review: (Updated 07/27/23 @ 12:30 by Diogenes Drew MD) Dysphagia causing pulmonary aspiration with swallowing (Acute) Palliative care encounter (Acute) Discharge planning issues (Acute) Weakness (Acute) DVT prophylaxis (Acute) Hill-Sachs fracture of right humerus (Acute) Hypoxic respiratory failure (Acute) Injury of shoulder, right (Acute) Acute urinary retention (Acute) Hypoxia (Acute) Encounter for hospice care (Acute) Muscular deconditioning (Acute) Palliative care patient (Acute) Advance care planning (Acute) Unexplained weight loss (Acute) Protein calorie malnutrition (Acute) Venous stasis (Acute) At risk for falls (Acute) No Known Allergies Allergy (Verified 07/20/23 08:48) Resuscitation Status DNR/DNI Height 5 ft 5 in Weight 41.5 kg Comments Comments/Follow Ups: Patient status changing to 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 Pharmacy Admission Review Renal Dosing Renal Dosing: BUN 27 mg/dL (7-18) H 07/25/23 12:08 Creatinine 0.8 mg/dL (0.70-1.30) 07/25/23 12:08 Medications needing adjustments: Reviewed (CrCl 36.3 mL/min) Anticoagulation Anticoagulation: Hgb 10.8 g/dL (13.5-17.5) L 07/25/23 06:10 Hct 35.3 % (40.0-50.0) L 07/25/23 06:10 Plt Count 256 10^3/uL (130-400) 07/25/23 06:10 INR 1.1 (0.9-1.1) 07/24/23 06:00 Creatinine 0.8 mg/dL (0.70-1.30) 07/25/23 12:08 DVT Prophylaxis: Reviewed Medications: Enoxaparin (40mg q24h) Opiate Usage Evaluate Pain Scale/Pains Meds: Reviewed (PRN morphine and fentanyl patch) Scheduled Bowel Reg ordered if on Opiates?: No (PRN Miralax and docusate) Relevant Labs Relevant Labs: Sodium 144 mmol/L (136-145) 07/25/23 12:08 Potassium 4.2 mmol/L (3.5-5.1) 07/25/23 12:08 Chloride 108 mmol/L (98-107) H 07/25/23 12:08 Magnesium 2.1 mg/dL (1.8-2.4) 07/24/23 06:00 Electrolytes, C-Reactive P, ESR: Reviewed Cardiac Review Cardiac Review: Troponin I < 50 ng/L (<or=60) 07/23/23 17:25 BP, HR, EF%: Reviewed (WNL) QTc Review QTc: Reviewed (443 07/26/23) IV to PO Switch IV Medications: Reviewed Home Meds Home Med List reviewed: Reviewed Current Meds Current Medication Order Review: Reviewed Pharmacy Antibiotic Review Pharmacy Antibiotic Activity: Reviewed, no change Comments: Currently on cefdinir IV, status changing to SALES 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 SUPERVISOR so may be discontinued Comments Comments/Follow Ups: Patient status changing to SALES 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 SUPERVISOR
--- NOTE | 2023-07-27 16:44 | CHAPLAIN ---
Severino was in bed and his son, Trey, was visiting with him. Severino appears to be very frail and weak, and his son noticed a recent quick decline. Gina Skelton NP from Palliative visited this afternoon and discussed end of life care with Trey who believes his father wouldn't want this drawn out, and will talk with his sister about having their dad be on comfort measures. Trey and his sister are both HCA for Severino. Severino was responding minimally when I visited. Trey said they have worked out a yes and no communication system. Trey was working to play some of Severino's favorite music for him. I explained my role and offered support. I will continue to visit.
[2023-07-28] MEDS: ACETAMINOPHEN 1,000 MG/100 ML BTL 400 MG IVPB ×3 (01:26→18:27)
[2023-07-28] MEDS: Normal Saline Flush 10 ML SYR IVP ×7 (01:26→21:19)
--- NOTE | 2023-07-28 08:45 | PDOC.CMPRO ---
Date of service: 07/28/23 Time of Service: 08:45 Care Management Progress Note Progress Note Text Progress Note Text: S/O: Severino was lying in bed when CM met with him. His son, Franklin, was by his side. Gina, Palliative care, was also in the room, discussing Severino's goals of care and next steps. Severino was unresponsive most of the day yesterday, and today is presenting much better; he is alert, oriented, and able to communicate effectively. Severino expressed that he continues to want comfort focused care, although he is agreeable to working with PT. CM discussed the option of Severino going to SNF for short term rehab, which he is agreeable to. CM will communicate with the [facility] associate director regulatory affairs to discuss bed availability at [facility], with the intention for him to transfer to [facility] once a bed becomes available. CM will continue to follow. A: Severino is a 77 year old male admitted to [facility] on 07/23/23 for R CVA, shoulder pain, urinary retention, respiratory failure. P: Anticipate Severino will go to SNF for continued rehab post discharge, as recommended by PT. His transportation will be dependent on disposition and mobility at the time of discharge. He will follow up with his PCP and discharge plan of care. CM will continue to follow.
[2023-07-28] MEDS: Budesonide/Formoterol 160/4.5 6 GM 60 PUFF INH IH (08:47)
[2023-07-28] MEDS: Tiotropium Bromide-Respimat 10 PUFF INH 2 PUFF IH (08:47)
[2023-07-28] MEDS: Ketorolac 15 MG/ML VIAL IVP (09:54)
[2023-07-28] MEDS: MORPHine 2 MG/ML SYR IV/SC ×2 (12:49→16:28)
--- NOTE | 2023-07-28 12:54 | PGE_ITS ---
Date of Service Date of service: 07/28/23 Time of Service: 10:00 Assessment and Plan Assessment and plan (1) Aspiration pneumonia due to regurgitated food: Assessment and plan: continuing antibiotics for now. dysphagia diet as above. If He goes to full ORGAN INSTALLER then consider stopping antibiotics Qualifiers: Laterality: unspecified laterality Lung location: unspecified part of lung Qualified Code(s): J69.0 - Pneumonitis due to inhalation of food and vomit (2) Hypoxic respiratory failure: Status: Acute Assessment and plan: Secondary to aspiration. Patient is currently tolerating his diet which is pur?ed with mildly thickened liquids. He is requiring supplemental oxygen at 4 L/min. Yesterday it appeared like he is imminently dying and we made him ORGAN INSTALLER status however he seems to be rallying at this point and think we will remove the ORGAN INSTALLER status continue medical treatment but plan to transition to a half-way to try to improve his strength and hopefully he will continue to improve on oral antibiotics (omnicef) and bronchodilators. However he is prepared to going to hospice and that can be initiated while he is at the half-way. Qualifiers: Chronicity: acute on chronic Qualified Code(s): J96.21 - Acute and chronic respiratory failure with hypoxia (3) Dysphagia: Status: Chronic Assessment and plan: today he seemed to tolerate his pureed diet. Qualifiers: Dysphagia type: unspecified Qualified Code(s): R13.10 - Dysphagia, unspecified (4) Hill-Sachs fracture of right humerus: Status: Acute Assessment and plan: s/p reduction limited sling use at this time d/t increased risk for skin tears okay to keep out of sling, per ortho keep immobilized out of sling Pain currently controlled with scheduled doses of morphine. I will transition him over from IV morphine to p.o. morphine and tomorrow we will have pharmacy calculate his MME and convert him to a long-acting MS Contin. Qualifiers: Encounter type: initial encounter Fracture type: closed Qualified Code(s): S42.291A - Other displaced fracture of upper end of right humerus, initial encounter for closed fracture (5) Frequent falls: Status: Chronic Assessment and plan: w/recent injury not safe to retun home at this time; patient understands this and is prepared to go to a assisted facility for long-term care. He does not have anybody at home who can care for him even if he does go into hospice. (6) Unexplained weight loss: Status: Acute (7) Protein calorie malnutrition: Status: Acute Assessment and plan: hospice admitting diagnosis continue diet as tolerated Qualifiers: Protein-calorie malnutrition severity: unspecified severity Qualified Code(s): E46 - Unspecified protein-calorie malnutrition (8) Venous stasis: Status: Acute Assessment and plan: w/wounds continue wound care and diligent skin care (9) Frailty syndrome in geriatric patient: Status: Chronic Assessment and plan: chronic, worsening (10) Alcohol use disorder: Status: Chronic Assessment and plan: w/no active signs of withdrawal this admission Severino reports doing okay w/no alcohol (11) Hepatic cirrhosis: Status: Chronic Assessment and plan: preference for no ongoing management/work up contributing to hospice eligibility Qualifiers: Ascites presence: without ascites Hepatic cirrhosis type: alcoholic cirrhosis Qualified Code(s): K70.30 - Alcoholic cirrhosis of liver without ascites (12) Chronic obstructive lung disease: Status: Chronic Assessment and plan: w/poor secretion clearance as above Qualifiers: COPD type: unspecified COPD Qualified Code(s): J44.9 - Chronic obstructive pulmonary disease, unspecified (13) BPH w urinary obs/LUTS: Status: Chronic Assessment and plan: duque placed by urology. will leave in for his comort and send him w/ this at time of discharge. (14) Advance care planning: Status: Acute Assessment and plan: Severino will remain at [facility] at this time, however, as he seems to be rallying, the plan will be for transfer to SNF this week w/ hospice consultation after entry into half-way. (15) Discharge planning issues: Status: Acute Assessment and plan: Severino has a bed offer at SNF will hold pending his decline overnight, if in 48 hours he is stable, consider transfer at that time per plan outlined yesterday Subjective Subjective Interval history since last seen: David is feeling better today he is much more alert and conversant with the staff. Still has a moist cough. Shoulder pain is much improved. He is willing to go to a assisted facility. [facility] beds [facility]. Exam Narrative Exam Narrative: Alert and oriented conversant smiling. Lungs with a few scattered rhonchi Heart regular rate and rhythm Abdomen scaphoid soft and nontender Extremities no edema or cyanosis, multiple skin tears w/ Mepilex applied to legs and arms Objective Last Vital Signs Temp 36.4 C L 07/27/23 10:38 Pulse 57 L 07/27/23 10:38 Resp 19 07/27/23 10:38 BP 131/84 07/27/23 10:38 Pulse Ox 93 07/27/23 10:38 Laboratory Results - last 24 hr 07/28/23 05:35 WBC Cancelled RBC Cancelled Hgb Cancelled Hct Cancelled MCV Cancelled MCH Cancelled MCHC Cancelled RDW Cancelled Plt Count Cancelled MPV Cancelled Immature Gran % Cancelled Neutrophils % Cancelled Band Neutrophils % Cancelled Lymphocytes % Cancelled Atypical Lymphs % Cancelled Monocytes % Cancelled Eosinophils % Cancelled Basophils % Cancelled Metamyelocytes % Cancelled Myelocytes % Cancelled Promyelocytes % Cancelled Other Cells % Cancelled Nucleated RBC % Cancelled Absolute Neutrophils Cancelled Absolute Lymphocytes Cancelled Absolute Monocytes Cancelled Absolute Eosinophils Cancelled Absolute Basophils Cancelled RBC Morphology Cancelled Polychromasia Cancelled Hypochromasia Cancelled Poikilocytosis Cancelled Basophilic Stippling Cancelled Anisocytosis Cancelled Microcytosis Cancelled Macrocytosis Cancelled Spherocytes Cancelled Tear Drop Cells Cancelled Ovalocytes Cancelled Stomatocytes Cancelled Lopez-Beech Bottom Bodies Cancelled Marlon Cells/Echinocytes Cancelled Acanthocytes (Spur) Cancelled Schistocytes Cancelled Time Spent with Patient Time Spent with Patient: 35-49 minutes Time was spent: preparing to see the patient(eg.review tests), ordering medications,tests, procedures, referring, communicating with other health attending ambulatory care, indepentently interpreting results, counseling the patient and care coordination
--- NOTE | 2023-07-28 14:37 | CHAPLAIN ---
Severino's daughter, Elli was visiting with Dion when I stopped in this morning. Elli's mom, Severino's exwife, is also here. She was out of the room at the time. 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 He also wrote poems. Last night, Severino was barely communicating with his son Dion, just nodding his head slightly and giving a weak thumbs-up sign, and today he having long conversations with visitors. Severino had been member of the old [facility], which has since merged with [facility] to form the [facility]. Last night, when Dion asked, Severino indicated that he'd like a visit from Rev. Gabriel Macario, the former field technical support consultant at [facility] who is currently serving the [facility]. Gabriel will be here tomorrow to visit Severino. I will continue to visit.
[2023-07-28 15:10] LABS: Streptococcus Pneumoniae Ag, U Negative (Negative)
--- NOTE | 2023-07-28 16:09 | W.PALPGNOTE ---
Date of service: 07/28/23 Time of Service: 15:00 Assessment and Plan Assessment and plan (1) Hill-Sachs fracture of right humerus: Status: Acute Assessment and plan: continue pain management Qualifiers: Encounter type: initial encounter Fracture type: closed Qualified Code(s): S42.291A - Other displaced fracture of upper end of right humerus, initial encounter for closed fracture (2) Hypoxic respiratory failure: Status: Acute Assessment and plan: reviewed O2 via NC, may opt to use or not use based on his comfort 2/2 aspiration and COPD Qualifiers: Chronicity: acute on chronic Qualified Code(s): J96.21 - Acute and chronic respiratory failure with hypoxia (3) Frequent falls: Status: Chronic Assessment and plan: w/recent injury not safe to retun home at this time; patient understands this and is prepared to go to a alf facility for long-term care. He does not have anybody at home who can care for him even if he does go into hospice. (4) Unexplained weight loss: Status: Acute (5) Protein calorie malnutrition: Status: Acute Assessment and plan: hospice admitting diagnosis continue diet as tolerated Qualifiers: Protein-calorie malnutrition severity: unspecified severity Qualified Code(s): E46 - Unspecified protein-calorie malnutrition (6) Venous stasis: Status: Acute Assessment and plan: w/wounds continue wound care and diligent skin care (7) Frailty syndrome in geriatric patient: Status: Chronic Assessment and plan: chronic, worsening (8) Dysphagia: Status: Chronic Assessment and plan: tolerating thickened liquids today, some pureed eggs at breakfast continue suction PRN scopolamine in place atropine PRN if unable to clear independently anticipate increased secretions w/difficulty clearing Qualifiers: Dysphagia type: unspecified Qualified Code(s): R13.10 - Dysphagia, unspecified (9) Tobacco use disorder: Status: Chronic Assessment and plan: recommend nicotine patch if needed does not at this time (10) Alcohol use disorder: Status: Chronic Assessment and plan: w/no active signs of withdrawal this admission Severino reports doing okay w/no alcohol (11) Hepatic cirrhosis: Status: Chronic Assessment and plan: preference for no ongoing management/work up contributing to hospice eligibility Qualifiers: Hepatic cirrhosis type: alcoholic cirrhosis Ascites presence: without ascites Qualified Code(s): K70.30 - Alcoholic cirrhosis of liver without ascites (12) Chronic obstructive lung disease: Status: Chronic Assessment and plan: w/poor secretion clearance as above Qualifiers: COPD type: unspecified COPD Qualified Code(s): J44.9 - Chronic obstructive pulmonary disease, unspecified (13) BPH w urinary obs/LUTS: Status: Chronic Assessment and plan: Red in place (14) Aspiration pneumonia due to regurgitated food: Assessment and plan: likely contributing to decline reviewed abx vs no abx and disease progression - Severino will decide later at time of dose on PO abx Qualifiers: Laterality: unspecified laterality Lung location: unspecified part of lung Qualified Code(s): J69.0 - Pneumonitis due to inhalation of food and vomit (15) Discharge planning issues: Status: Acute Assessment and plan: Severino has a bed offer at SNF reviewed plan for discharge to SNF pending no decline, if declines/becomes unresponsive could remain at [facility] for EoL (16) Encounter for hospice care: Status: Acute Assessment and plan: Hospice Dx: suspected aspiration PNA w/ protein calorie malnutrition 2/2 hepatic cirrhosis, COPD, dysphagia; frequent falls, ADL assistance, unexplained weight loss (17) Advance care planning: Status: Acute Assessment and plan: Severino will remain at [facility] at this time. - pending how he does in the next 24 hours may consider transfer to SNF for ongoing acute rehab for shoulder and transfer assist, may consider transition to MECHATRONICS TECHNICIAN at facility; CM reviewed plan w/insurance coverage - if no improvement/ongoing decline, will remain at [facility] for EoL care - reviewed changes in care w/MECHATRONICS TECHNICIAN w/Severino, including antibiotics, IVF, oxygen use, eating and drinking; Severino would like to do things his way, and if he can't would not want interventions - no IVF; O2 okay for now, aware may stop if uncomfortable - reviewed cannot return home, Severino more than understands this today; we reviewed if he changed his mind and wanted to leave, would have to do so AMA and would need transportation, which is unlikely at this time - reviewed Severino's historically preferences stated to PC, regarding aware of possibility of not leaving the hospital this admission spent 35 mins w/ACP (18) Palliative care encounter: Status: Acute Assessment and plan: PC will continue to follow Severino closely during this admission and through his transition to EoL or discharge to SNF w/hospice support It has been my pleasure to care for Severino over the past few months. Subjective Subjective Interval history since last seen: Severino has been awake since last night, talking and visiting with son. Today he has had several visitors, including his daughter and ex-. Pain: well controlled, has only received 1 dose of morphine in 24 hours, fentanyl patch 12mcg started yesterday; apap and toradol today w/good effect - Severino reports pain in RUE shoulder and butt right now, 08/25, does not need pain meds, aware they are available [place]: he has had several Ensures, this morning ate eggs for breakfast, unsure of lunch; clearing secretions independently, mostly ensure; has required suction one time; - atropine on hold in order to allow him to continue to clear independently; scopolamine patch in place - IVF stopped yesterday Activity: he has tolerating repositioning; has not been OOB; potentially feeling restless, worse when sleeping Resp: continues w/NC use, not bothering him at this time; does have increased secretions as above; respiration rate returned to normal while awake - respiratory following Spiritual: has had visitors from local gnosticist advisor which was helpful; [facility] Director Appointment following Social: has enjoyed all visitors; son Dion unfortunately needs to return to [place], they are focusing on all the important conversations and leaving nothing unsaid - his brother attempted to participate in VSED several years ago ACP: I am ready to let go, he is not afraid of dying. He does not want to return home, is aware he cannot do so safely. regarding LST, If I can't do it my way he would be less interested (eating, drinking, etc). - His first and most important preference remains discharge to [facility], he is aware there are no beds so is agreeable to [facility] for transfer back to H/R - okay with not restarting IVF at this time; will think about antibiotic dose this afternoon - son reviews what if he wants to leave rehab after being there, AMA - he does not have LTM, son willing to start application Exam Narrative Exam Narrative: General: older than stated age, thin/cachectic, frail/ill appearing; awake alert and oriented; conversive; closes eyes intermittently however remains engaged HEENT: temporal wasting; atraumatic/normocephalic; hard of hearing; dry MM; edentulous; uses straw for sips x1 during visit; Neck: no masses, no JVD Resp: even and unlabored, rate WNL; speaks full sentences w/mild SOB, NC in place; increased secretions Skin: several scattered bandages upper/lower extremities; atrophy, dry Psych: speech garbled; cooperative pleasant; insight/judgment fair; thought process clear Objective Last Vital Signs Temp 97.5 F L 07/27/23 10:38 Pulse 57 L 07/27/23 10:38 Resp 19 07/27/23 10:38 BP 131/84 07/27/23 10:38 Pulse Ox 93 07/27/23 10:38 Laboratory Results - last 24 hr 07/28/23 05:35 WBC Cancelled RBC Cancelled Hgb Cancelled Hct Cancelled MCV Cancelled MCH Cancelled MCHC Cancelled RDW Cancelled Plt Count Cancelled MPV Cancelled Immature Gran % Cancelled Neutrophils % Cancelled Band Neutrophils % Cancelled Lymphocytes % Cancelled Atypical Lymphs % Cancelled Monocytes % Cancelled Eosinophils % Cancelled Basophils % Cancelled Metamyelocytes % Cancelled Myelocytes % Cancelled Promyelocytes % Cancelled Other Cells % Cancelled Nucleated RBC % Cancelled Absolute Neutrophils Cancelled Absolute Lymphocytes Cancelled Absolute Monocytes Cancelled Absolute Eosinophils Cancelled Absolute Basophils Cancelled RBC Morphology Cancelled Polychromasia Cancelled Hypochromasia Cancelled Poikilocytosis Cancelled Basophilic Stippling Cancelled Anisocytosis Cancelled Microcytosis Cancelled Macrocytosis Cancelled Spherocytes Cancelled Tear Drop Cells Cancelled Ovalocytes Cancelled Stomatocytes Cancelled [place] Bodies Cancelled Marlon Cells/Echinocytes Cancelled Acanthocytes (Spur) Cancelled Schistocytes Cancelled
[2023-07-28] MEDS: Albuterol 2.5 MG/3 ML INH SOLN VIAL UPD (17:52)
[2023-07-28 17:53] VITALS: PULSE 96; RESP 16; RESP 9; O2SAT 88
--- NOTE | 2023-07-29 09:42 | CMPROGNOTE_ITS ---
Date of service: 07/29/23 Time of Service: 09:42 Care Management Progress Note Progress Note Text Progress Note Text: S/O: Severino was lying in bed when CM met with him today. His daughter, Elli, was by his side. CM contacted the [facility] global supply chain director, who stated that there is not a bed available today at [facility], but there is an anticipated discharge tomorrow, therefore he may be able to transfer there tomorrow afternoon. CM discussed this with Severino and his daughter, as well as his son and ex , who CM also met with and provided the update. Severino and his family reported that they are happy to have him remain another day at [facility]. CM will continue to follow. A: Severino is a 77 year old male admitted to [facility] on 07/23/23 for R CVA, shoulder pain, urinary retention, respiratory failure. P: Anticipate Severino will go to SNF for continued rehab post discharge, as recommended by PT. His transportation will be dependent on disposition and mobility at the time of discharge. He will follow up with his PCP and discharge plan of care. CM will continue to follow.
--- NOTE | 2023-07-29 10:46 | W.PM.PROGNOT ---
Date of Service Date of service: 07/29/23 Time of Service: 10:46 Assessment and Plan Assessment and plan (1) Aspiration pneumonia due to regurgitated food: Assessment and plan: Patient with ongoing aspiration due to severe dysphagia. Patient declines to have a feeding tube. Again have emphasized with nursing the need for him to be supervised on his feedings by nursing and he should be upright in a chair or as a minimum upright at 90 degrees in bed during feedings and medications. We will allow him to continue to eat for comfort measures. Patient understands the risk of aspiration. Present time read discontinue antibiotics as he does not want further aggressive treatment. We will continue aerosol treatments as needed for comfort. Once a [place] [facility] bed [facility] available we will transfer him. Professional time spent interviewing and examining patient, discussion of goals of care with hospital team (care management, nursing and consulting professionals) was 35 minutes. Qualifiers: Laterality: unspecified laterality Lung location: unspecified part of lung Qualified Code(s): J69.0 - Pneumonitis due to inhalation of food and vomit (2) Hypoxic respiratory failure: Status: Acute Assessment and plan: Supportive care with oxygen along with medications for anxiety or pain including morphine and Ativan. Qualifiers: Chronicity: acute on chronic Qualified Code(s): J96.21 - Acute and chronic respiratory failure with hypoxia (3) Dysphagia: Status: Chronic Assessment and plan: Not tolerating his diet well however I think he would do better if he were up in a chair for his feedings. Qualifiers: Dysphagia type: unspecified Qualified Code(s): R13.10 - Dysphagia, unspecified (4) Hill-Sachs fracture of right humerus: Status: Acute Assessment and plan: s/p reduction limited sling use at this time d/t increased risk for skin tears okay to keep out of sling, per ortho keep immobilized out of sling Pain currently controlled with scheduled doses of morphine. Qualifiers: Encounter type: initial encounter Fracture type: closed Qualified Code(s): S42.291A - Other displaced fracture of upper end of right humerus, initial encounter for closed fracture (5) Frequent falls: Status: Chronic Assessment and plan: w/recent injury not safe to retun home at this time; patient understands this and is prepared to go [place] a [place] [facility] for [facility]-term care. He does not have anybody at home who can care for him even if he does go into hospice. (6) Unexplained weight loss: Status: Acute Assessment and plan: Secondary to dysphagia (7) Protein calorie malnutrition: Status: Acute Assessment and plan: As above Qualifiers: Protein-calorie malnutrition severity: unspecified severity Qualified Code(s): E46 - Unspecified protein-calorie malnutrition (8) Venous stasis: Status: Acute Assessment and plan: Mepilex applied to his wounds. Wound care as per wound care nurse recommendation. (9) Frailty syndrome in geriatric patient: Status: Chronic (10) Alcohol use disorder: Status: Chronic Assessment and plan: Patient showed no sign of acute alcohol withdrawal. I (11) Hepatic cirrhosis: Status: Chronic Qualifiers: Hepatic cirrhosis type: alcoholic cirrhosis Ascites presence: without ascites Qualified Code(s): K70.30 - Alcoholic cirrhosis of liver without ascites (12) Chronic obstructive lung disease: Status: Chronic Assessment and plan: Continue supportive care with nasal cannula oxygen as needed nebulizers Qualifiers: COPD type: unspecified COPD Qualified Code(s): J44.9 - Chronic obstructive pulmonary disease, unspecified (13) BPH w urinary obs/LUTS: Status: Chronic Assessment and plan: Red catheter placed by urology. Continue Red care upon discharge (14) Discharge planning issues: Status: Acute Assessment and plan: [facility] [facility] [place] [facility] a bed becomes available. Subjective Subjective Interval history since last seen: Patient had another aspiration event last night and again this morning. However, the patient has not been getting up to chair for meals. He has been fed while in bed. I emphasized to nursing and his family that he needs to either be up in a chair or bolt upright at 90 degrees while eating or taking meds. His nurse was concerned but his impending discharge to shelter and his family was concerned as well. Primarily his family is concerned that he is going to a SNF in [place], [place] and away from the [facility] that he has known. They are concerned that if he has another aspiration event while at the SNF that the nursing staff will not know how to handle this and that if it becomes a life threatenting emergency he will be sent to [facility] and not to [facility]. I explained to them that he will have further aspiration events and that eventually one of these events will be his terminal event. It will happen no mater where he is located, whether at [facility] or in a SNF. His dysphagia is not going to get any better, he does not want a feeding tube placed and does not want to be intubated or put on life support in the event of cardiac or pulmonary arrest/failure. At this point he needs to go into SNF for therapy to try to improve his strength as best as he can tolerate, try to get him to perform some of his ADL's and if he fails at the shelter, consult w/ hospice for end of life care. I explained that he can not remain hospitalized waiting for a terminal event to happen. Medically he can receive anything he is getting here can also be achieved at a shelter. Unfortunately, his first choice for SNF is [facility] and they do not have staffing to accept any admissions at present or in the near future. [facility] in [facility] did have a bed offer yesterday but that was lost today. They may have an opening tomorrow. Exam Narrative Exam Narrative: Severino is alert oriented to person place and circumstance talking with his family. He has a moist cough is having trouble controlling his own secretions Lungs with coarse scattered rhonchi Heart is regular with distant heart tones Abdomen is scaphoid soft and nontender Objective Last Vital Signs Temp 36.4 C L 07/27/23 10:38 Pulse 96 H 07/28/23 17:53 Resp 16 07/28/23 17:53 BP 131/84 07/27/23 10:38 Pulse Ox 88 L 07/28/23 17:53 Laboratory Results - last 24 hr 07/25/23 10:40 Ur Strep pneumoniae Ag Negative Time Spent with Patient Time Spent with Patient: 35-49 minutes Time was spent: preparing to see the patient(eg.review tests), ordering medications,tests, procedures, referring, communicating with other health managed care specialist, indepentently interpreting results, counseling the patient (And patient's family including his son, daughter, ex-) and care coordination
[2023-07-29] MEDS: ACETAMINOPHEN 1,000 MG/100 ML BTL 400 MG IVPB ×2 (12:10→17:36)
--- NOTE | 2023-07-29 13:14 | W.PALPGNOTE ---
Date of service: 07/29/23 Time of Service: 13:14 Assessment and Plan Assessment and plan (1) Aspiration pneumonia due to regurgitated food: Assessment and plan: Patient has experienced a slight improvement compared to 2 days ago, when he was barely responsive, with improved mental status. However continues to request BUSINESS PLANNING ANALYST, declining further antibiotics or feeding tube or IV hydration. His dysphagia is worse and as of this time he does not want to take anything further by mouth. Development of widespread skin breakdown also suggestive of patient approaching end-of-life. Suggest proceeding as if he was comfort measures only. Pain/discomfort management: -Low-dose morphine sulfate written as scheduled 2 mg IV every 4 hours. Recommend that this be given every 4 hours, without arousing patient or checking for sedation or whether or not he is having pain. If he tolerates this over 24 hours, consider Starting fentanyl patch 12 mcg. But first he needs to have the morphine over 24 to 48 hours. He may well need regular morphine increased to 4 mg per dose or higher -Suggest adding morphine sulfate 2 mg every 1 hour as needed for pain or dyspnea. -As patient is BUSINESS PLANNING ANALYST, please do not wake him up before giving him these low doses of pain medication. -Please make sure patient is given pain medication prior to transfer to SNF. Decubitus ulcers: -Nursing is going to institute new system with floating transfer sheet and special overlying material. -Consider air mattress if patient remains longer than tomorrow at [facility]. Air mattress can also be considered once he is transferred to SNF. Additional comfort measures: -Suggest canceling all regular medications and pills, as patient cannot take anything p.o., including protein supplements. -Anticipate loss of IV access. Morphine and lorazepam can be given subcutaneously. Antiemetics and Tylenol are already written either for sublingual rectal administration -Patient is creating savory foods and tastes. He can try tasting and spitting. He was wondering if he could try some bili on with a sponge. Palliative care team will continue to follow. Quynh Carr is covering palliative team tomorrow 07/30/2023. Qualifiers: Laterality: unspecified laterality Lung location: unspecified part of lung Qualified Code(s): J69.0 - Pneumonitis due to inhalation of food and vomit (2) Hypoxic respiratory failure: Status: Acute Qualifiers: Chronicity: acute on chronic Qualified Code(s): J96.21 - Acute and chronic respiratory failure with hypoxia (3) Dysphagia: Status: Chronic Qualifiers: Dysphagia type: unspecified Qualified Code(s): R13.10 - Dysphagia, unspecified (4) Hill-Sachs fracture of right humerus: Status: Acute Qualifiers: Encounter type: initial encounter Fracture type: closed Qualified Code(s): S42.291A - Other displaced fracture of upper end of right humerus, initial encounter for closed fracture (5) Hepatic cirrhosis: Status: Chronic Qualifiers: Hepatic cirrhosis type: alcoholic cirrhosis Ascites presence: without ascites Qualified Code(s): K70.30 - Alcoholic cirrhosis of liver without ascites (6) Discharge planning issues: Status: Acute (7) Decubital ulcer: Status: Acute (8) Comfort measures only status: Status: Acute Subjective Subjective Interval history since last seen: Mr. Haq is a 77 y/o M est PC admitted to [facility] on 07/24/2023 with R shoulder fracture/dislocation, FTT. During this admission he subsequently developed aspiration PNA with respiratory failure. PMHx sig for hepatic cirrhosis, COPD, cachexia, osteoporosis, venous stasis, AK/SK, lung nodules, portal HTN, anemia, dysphagia w/Smalls's esophagus, tobacco and alcohol use disorder, abdominal hernia, HTN, BPH. After his acute deterioration in respiratory status, patient elected to pursue comfort measures only. I am seeing him today for followup regarding symptom management for EOL as well as review Goals of care. Updates: -Son had been visiting and left to return to [place]. Ex- from [place] and daughter from [facility] visiting today, both leaving town tomorrow. -He was noted to be somewhat clinically improved yesterday. -Overnight and this morning he tried to eat some eggs and apparently aspirated. Reports that he spent most of today coughing up what ever he ate. -He is limiting himself to wetting his mouth with sponge only. Plans not to eat anymore. He is having trouble swallowing his own saliva. -Nurse notes that he is developing significant bedsores on his arms and legs, worst on his heels. Patient reports that these are becoming uncomfortable . -He is not sure whether the Tylenol or the morphine is helping the discomfort. -HeTells me: I am never going home again . He understands he will be in the hospital or in SNF for the rest of his life. He does not want a feeding tube. I am coming to terms with this . Pain/Discomfort: As per medical insurance coding specialist, patient having no pain, no morphine given, received no MS IV between yesterday afternoon and this afternoon.. Is receiving IV tylenol scheduled. No anxiolytics given. No inhalers accepted last 24 hours. All Abx and oral meds being held (but have not been ordered to be discontinued). Exam Narrative Exam Narrative: Thin pleasant elderly gentleman lying in bed with head elevated about 30 degrees. He is using a sponge to continuously moisten his tongue and mouth. He is able to speak in complete sentences. Frequent wet cough but no obvious dyspnea. He is alert, exhibits wry humor, engages well with both myself and his family members. Nursing describes significant skin breakdown on elbows, posterior legs and heels. All these have been dressed at this time. Objective Last Vital Signs Temp 36.4 C L 07/27/23 10:38 Pulse 96 H 07/28/23 17:53 Resp 16 07/28/23 17:53 BP 131/84 07/27/23 10:38 Pulse Ox 88 L 07/28/23 17:53 Laboratory Results - last 24 hr 07/25/23 10:40 Ur Strep pneumoniae Ag Negative
[2023-07-29] MEDS: Normal Saline Flush 10 ML SYR IVP ×3 (13:33→20:37)
[2023-07-29] MEDS: MORPHine 2 MG/ML SYR IV/SC ×4 (13:35→23:36)
--- NOTE | 2023-07-29 16:47 | NUR.NOTE ---
Nursing Note: 1. patient noted to have multiple skin tears on bilateral arms and legs, tears not approximated, bleeding, tender to touch, scabbed areas noted 2. right upper forearm open wound purulent tender, scant bleeding noted, foul odor, 3. deep tissue wound on right heal, non tender, 4. bilateral scabbed and open gutierrez wounds, 5. right posterior and lateral shoulder wounds, scabbed, 6. open area noted on mid spine, 7. coccyx noted to be red and tender, slightly blanchable, 8. upper abdomen noted to have blue medical suture or device proturing from skin, non tender to patient, nurse able to palpate surgical device on upper abdomen, per family patient had a repair in the 90's for hiatal hernia. Old drgs removed, skin and wounds cleansed, mepitel applied to skin tears, right forearm and covered with mepilx boarder, mepilx board applied to bilataral heals, extensive teaching provided to patient, family and importance in frequent position turns, pain management and end of life care, nurse updated palliative care provider
[2023-07-29 16:57] LABS: Mycoplasma Pneumoniae PCR Negative (Negative); Specimen source Sputum
--- NOTE | 2023-07-29 18:28 | NUR.NOTE ---
Per MD, please do not wake pt to give him the IV push morphine and continue it scheduled Q 4 hours.Nursing Note:
[2023-07-29] MEDS: Budesonide/Formoterol 160/4.5 6 GM 60 PUFF INH IH (19:48)
[2023-07-29 19:54] VITALS: O2SAT 89
[2023-07-29] MEDS: Scopolamine 1 MG/3 DAYS PATCH TD (21:45)
[2023-07-30] MEDS: ACETAMINOPHEN 1,000 MG/100 ML BTL 400 MG IVPB ×2 (01:53→09:45)
[2023-07-30] MEDS: MORPHine 2 MG/ML SYR IV/SC ×6 (03:36→23:56)
[2023-07-30] MEDS: Normal Saline Flush 10 ML SYR IVP ×4 (03:36→09:44)
[2023-07-30] MEDS: Pantoprazole 40 MG VIAL IVP (08:40)
--- NOTE | 2023-07-30 10:10 | PDOC.CMPRO ---
Date of service: 07/30/23 Time of Service: 10:11 Care Management Progress Note Progress Note Text Progress Note Text: S/O: Severino was resting when CM attempted to meet with him. Severino continues to decline, as he is no longer receiving treatment, such as IV fluids or antibiotics; on comfort measures. Per RN, lost IV access this morning, therefore he transitioned to a subcu pump for low dose continuous medication, for his comfort. CM talked to Franklin, his son, over the phone, and informed him that Severino will remain at [facility] for end of life care, as he is no longer able to be skilled in a nursing facility, and the provider feels that he is imminent based on his decline. His children and ex have returned home, therefore they are no longer local. Franklin stated that arrangements have been made with [facility]. CM will continue to follow. A: Severino is a 77 year old male admitted to [facility] on 07/23/23 for R CVA, shoulder pain, urinary retention, respiratory failure. P: Severino will remain at [facility] for end of life care. Severino and his family decided on [facility] for final arrangements. CM will continue to support Severino and his family during this difficult time.
--- NOTE | 2023-07-30 10:13 | PDOC.CMDIS ---
Date of service: 07/30/23 Time of Service: 10:13 LACE Index Scoring Tool Questions: Length of Stay (in days): 7 - 13 Was the patient admitted via the E.D.?: Yes Comorbidities: Cerebrovascular Disease Care Management Discharge Plan Reason for Hospitalization: Right CVA, shoulder pain (R relocation), UR, Respiratory
--- NOTE | 2023-07-30 12:08 | W.PM.PROGNOT ---
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 -Minimal disturbance of patient, stop all vital signs checks -Had been on 2 mg morphine every 4 hours, but IV access has been lost -Have transitioned to 0.5 mg/h subcu morphine with half milligram as needed every 1/2 hour (2) Aspiration pneumonia due to regurgitated food: Qualifiers: Laterality: unspecified laterality Lung location: unspecified part of lung Qualified Code(s): J69.0 - Pneumonitis due to inhalation of food and vomit (3) Hypoxic respiratory failure: Status: Acute Qualifiers: Chronicity: acute on chronic Qualified Code(s): J96.21 - Acute and chronic respiratory failure with hypoxia (4) Dysphagia: Status: Chronic Qualifiers: Dysphagia type: unspecified Qualified Code(s): R13.10 - Dysphagia, unspecified (5) Hill-Sachs fracture of right humerus: Status: Acute Qualifiers: Encounter type: initial encounter Fracture type: closed Qualified Code(s): S42.291A - Other displaced fracture of upper end of right humerus, initial encounter for closed fracture (6) Hepatic cirrhosis: Status: Chronic Qualifiers: Ascites presence: without ascites Hepatic cirrhosis type: alcoholic cirrhosis Qualified Code(s): K70.30 - Alcoholic cirrhosis of liver without ascites (7) Discharge planning issues: Status: Acute (8) Decubital ulcer: Status: Acute Subjective Subjective Interval history since last seen: Patient laying in bed, minimally responsive, slow respirations, does not appear to be in any acute distress Exam Narrative Exam Narrative: Frail-appearing older gentleman laying in bed in no acute distress, respiratory rate slow about 8, minimally responsive to painful stimuli only Objective Last Vital Signs Temp 97.5 F L 07/27/23 10:38 Pulse 96 H 07/28/23 17:53 Resp 16 07/28/23 17:53 BP 131/84 07/27/23 10:38 Pulse Ox 89 L 07/29/23 19:54 Laboratory Results - last 24 hr 07/26/23 08:25 M. pneumoniae Source Sputum M. pneumoniae (PCR) Negative Time Spent with Patient Time Spent with Patient: >50 minutes Time was spent: preparing to see the patient(eg.review tests), obtaining and/or reviewing separately otained hiistory, referring, communicating with other health reservoir caretaker, indepentently interpreting results, counseling the patient and care coordination
--- NOTE | 2023-07-30 16:46 | CHAPLAIN ---
Severino is now on comfort measures. He was moved to room 218 this afternoon. His son Dion, daughter Elli and ex have all returned home and live in different states. Today Severino had visitors from the community. His former package worker at [facility], Gabriel Rubalcava (who is now serving the [facility]) has been in to visit Severino and will continue to do that..
--- NOTE | 2023-07-30 22:02 | WOUNDCARE ---
At approximately 1900 this evening I approached the pt to do a wound consult. However the pt was having an end of life discussion with his nurse regarding his family and what to expect in the coming hours to days. Pt visibly short of breath having to stop to breath after speaking a few words. Will discuss further with . Wound Care Report
--- NOTE | 2023-07-31 08:53 | PGE_ITS ---
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 -Minimal disturbance of patient, stop all vital signs checks -Had been on 2 mg morphine every 4 hours, but IV access has been lost -Continue PRN subcu morphine 2mg Q4hr (2) Aspiration pneumonia due to regurgitated food: Qualifiers: Laterality: unspecified laterality Lung location: unspecified part of lung Qualified Code(s): J69.0 - Pneumonitis due to inhalation of food and vomit (3) Hypoxic respiratory failure: Status: Acute Qualifiers: Chronicity: acute on chronic Qualified Code(s): J96.21 - Acute and chronic respiratory failure with hypoxia (4) Dysphagia: Status: Chronic Qualifiers: Dysphagia type: unspecified Qualified Code(s): R13.10 - Dysphagia, unspecified (5) Hill-Sachs fracture of right humerus: Status: Acute Qualifiers: Encounter type: initial encounter Fracture type: closed Qualified Code(s): S42.291A - Other displaced fracture of upper [facility] of [facility] hum[facility]us[facility] (6) Hepatic cirrhosis: Status: Chronic Qualifiers: Hepatic cirrhosis type: alcoholic cirrhosis Ascites presence: without ascites Qualified Code(s): K70.30 - Alcoholic cirrhosis of liver without ascites (7) Discharge planning issues: Status: Acute (8) Decubital ulcer: Status: Acute Subjective Subjective Interval history since last seen: Patient again seen laying in bed, minimally responsive, slow respirations, does not appear to be in any acute distress Exam Narrative Exam Narrative: Frail-appearing older gentleman laying in bed in no acute distress, respiratory rate slow about 8, minimally responsive to painful stimuli only Objective Last Vital Signs Temp 97.5 F L 07/27/23 10:38 Pulse 96 H 07/28/23 17:53 Resp 16 07/28/23 17:53 BP 131/84 07/27/23 10:38 Pulse Ox 89 L 07/29/23 19:54 Laboratory Results - last 24 hr 07/26/23 08:25 M. pneumoniae Source Sputum M. pneumoniae (PCR) Negative Time Spent with Patient Time Spent with Patient: 35-49 minutes Time was spent: preparing to see the patient(eg.review tests), obtaining and/or reviewing separately otained hiistory, referring, communicating with other health nursing care attendant, indepentently interpreting results, counseling the patient and care coordination
[2023-07-31] MEDS: MORPHine 2 MG/ML SYR IV/SC ×2 (09:04→12:52)
[2023-07-31] MEDS: LORazepam 2 MG/ML VIAL IV/SC (13:32)
--- NOTE | 2023-07-31 15:01 | NUR.NOTE ---
Nursing Note: Patient family called nurse to bedside staying patient had passed, nurse listened for heart and breath sounds for 1 minute, no heart or breath sounds detected, a secondary nurse confirmed absense of heart and lung sounds, time of called at 1435. Nurse provided emotional support for family and physical trainer who were at bedside at time of passing. Family prefered to contact patients children, nurse updated MD Heart and emt b Aisha, nurse contacted [facility] and spoke with Jovany Brooke. Patient does not qualify for donation #[phone]
--- NOTE | 2023-07-31 15:07 | W.PM.DDS ---
Date of service: 07/31/23 Time of Service: 15:07 Discharge Plan Disposition Patient Disposition: Discharge Details Reason For Visit: Right CVA, Shoulder pain, UR, Respiratory Failure Admit Date/Time: 07/23/23 22:46 Admit Provider: Hamzah Bahena Attending Provider: Hamzah Bahena Primary Care Provider: Asher Jeter [facility] Hospital Course Hospital Course: Patient was initially admitted due to acute right doug CVA, aspiration pneumonia and acute hypoxic respiratory failure. Given ongoing aspiration, decision was made and patient was transition to [facility]. He ultimately passed due to to hypoxic respiratory failure due to aspiration pneumonia likely due to CVA on 07/31/2023 at 14:35 Discharge Data Cause of : Respiratory failure Discharge Date/Time-TO BE ENTERED AT DEPARTURE: 07/31/23 15:05 Discharge Sum: Prov Provider Consults: 07/24/23 01:24 Occupational Therapy Consult [CONS] Routine Consulting Provider: Brittni Ball Priority: Non-Urgent Reson for Non-Urgent Priority: Limited Ability PT Consult [Physical Therapy Consult] [CONS] Routine Consulting Provider: Dayna Coleman Priority: Urgent Reason for Urgent Priority: Fall Safety Assessment Palliative Care Consult [CONS] Routine Consultation Status:: Follow-up needed Clarification:: Manage/follow per spec. Reason for consult:: CVA Speech Therapy Consult [CONS] Routine Consulting Provider: [facility] Speech Langauge Pathology Type of Consult: Swallow Cognitive/Communication Check all that apply: High Risk choke/asp/PNA NPO, awaiting CORPORATE STAFF ACCOUNTANT eval Limited communication Other Reason for Consult: Hx dysphagia, new CVA, garbled speech Wound Care Consult [CONS] Routine Consultation Status:: Follow-up needed Clarification:: Manage/follow per spec. Reason for consult:: Multiple wounds, pressure, stasis, skin tears 07/24/23 05:02 Urology Consult [CONS] Routine Consulting Provider: Toñito Beckman Consultation Status:: Contact made by Clarification:: Manage/follow per spec. Reason for consult:: Urinary retention, hematuria 07/24/23 10:10 Nutrition Consult [CONS] Routine Consulting Provider: [facility] Nutrition Consultation Status:: Follow-up needed Clarification:: One time opinion Reason for consult:: evaluate and treat for malnutrition, low protein state 07/26/23 08:00 Neurology Consult [CONS] Routine Consulting Provider: Mackenzie Stewart Consultation Status:: Follow-up needed Clarification:: Manage/follow per spec. Reason for consult:: evaluate and treat for right pontine CVA 07/26/23 14:13 Hospice Consult [CONS] Routine Consultation Status:: Follow-up needed Clarification:: Manage/follow per spec. Reason for consult:: assist patient w/ entering into hospice, patient desires hospice care Discharge Sum: Diag PCOD Cause of : Respiratory failure Contributing Factors (1) Comfort measures only status: (2) Aspiration pneumonia due to regurgitated food: (3) Hypoxic respiratory failure: (4) Dysphagia: (5) Hill-Sachs fracture of right humerus: (6) Hepatic cirrhosis: (7) Discharge planning issues: (8) Decubital ulcer: Discharge Sum: Summary Date and Time Admission Date: 07/24/2312/08/23 22:46 Date of : 07/31/23 Time of : 14:35 Summary Details: Patient was initially admitted due to acute right doug CVA, aspiration pneumonia and acute hypoxic respiratory failure. Given ongoing aspiration, decision was made and patient was transition to [facility]. He ultimately passed due to to hypoxic respiratory failure due to aspiration pneumonia likely due to CVA on 07/31/2023 at 14:35 Additional Data Confirmation of as documented by pronouncing clinician: no pulse Family: at bedside Attending/PCP notified?: Yes Attending Physician: Hamzah Singer Was code activated?: No Autopsy requested?: No yarn examiner skeins notified?: No Organ bank notified?: No Advance directives: No Hospice patient?: No
== END 2023-07-31 15:05 | disposition expired | DRG 64 ==
LOC: ER 23:11 → MS 23:58
PROVIDERS: Internal Medicine; Student in an Organized Health Care Education/Training Program; Admitting Provider Family Medicine; Emergency Provider Physician Assistant; PCP Family Medicine; Visit Provider Family Medicine
DX: I63.9 Cerebral infarction, unspecified (principal); J69.0 Pneumonitis due to inhalation of food and vomit; J96.21 Acute and chronic respiratory failure with hypoxia; S42.291A Other displaced fracture of upper end of right humerus, initial encounter for closed fracture; E46 Unspecified protein-calorie malnutrition; Z68.1 Body mass index [BMI] 19.9 or less, adult; N13.8 Other obstructive and reflux uropathy; K76.6 Portal hypertension; R33.8 Other retention of urine; R29.6 Repeated falls; K70.30 Alcoholic cirrhosis of liver without ascites; F10.10 Alcohol abuse, uncomplicated; Z51.5 Encounter for palliative care; R13.10 Dysphagia, unspecified; R63.4 Abnormal weight loss; J44.9 Chronic obstructive pulmonary disease, unspecified; F17.210 Nicotine dependence, cigarettes, uncomplicated; N40.1 Benign prostatic hyperplasia with lower urinary tract symptoms; R60.0 Localized edema; I10 Essential (primary) hypertension; E78.5 Hyperlipidemia, unspecified; K22.70 Barrett's esophagus without dysplasia; K21.9 Gastro-esophageal reflux disease without esophagitis; M81.0 Age-related osteoporosis without current pathological fracture; R91.8 Other nonspecific abnormal finding of lung field; D64.9 Anemia, unspecified; R54 Age-related physical debility; G25.81 Restless legs syndrome; R31.0 Gross hematuria; Z85.46 Personal history of malignant neoplasm of prostate; Z66 Do not resuscitate; I87.8 Other specified disorders of veins; B35.1 Tinea unguium; K44.9 Diaphragmatic hernia without obstruction or gangrene; K57.30 Diverticulosis of large intestine without perforation or abscess without bleeding; I95.9 Hypotension, unspecified; E86.0 Dehydration; D72.829 Elevated white blood cell count, unspecified; L89.321 Pressure ulcer of left buttock, stage 1; L89.311 Pressure ulcer of right buttock, stage 1
CPT/HCPCS: 51702; 00123; 23650; 36415; 36416; 51701; 70496; 70498; 80048; 80053; 80061; 82805; 82962; 84145; 85027; 92526; 92610; 93005; 93306; 94640; 96360; 96361; 97162; 97530; 99222; 99223; 99285; J1650; 70450; 70551; 71045; 71260; 72125; 73030; 73200; 74221; 81003; 81015; 82140; 82607; 82746; 83036; 83735; 84425; 84443; 84484; 85025; 85610; 87070; 87086; 87205; 87581; 87899; 93010; 94664; 94667; 94668; 94760; 99232; 99233; A0425; A0428; J0131; J0696; J1885; J2060; J2270; J3490; J7613; J7620

== ENCOUNTER → 2023-07-26 07:40 | Outpatient (BNVA) | payer MEDICARE, BC, SELFPAY | PROVIDERS: PCP Family Medicine; Referring Provider Family Medicine; Visit Provider Urology ==

== ENCOUNTER → 2023-07-26 08:02 | Outpatient (BNVA) | payer MEDICARE, BC, SELFPAY | PROVIDERS: PCP Family Medicine; Referring Provider Family Medicine; Visit Provider Psychiatry & Neurology Neurology ==